=== PATIENT | female | born 1990 | race Caucasian/White ===

== ENCOUNTER 2022-11-07 10:25 | Emergency (ER) | payer OTHER, SELFPAY ==
--- NOTE | 2022-11-07 10:31 | ED.GENADUL1 ---
HPI - General Adult General Chief complaint: Nausea/Vomiting/Diarrhea Stated complaint: SORE THROAT Time Seen by Provider: 11/07/22 10:31 History of Present Illness HPI narrative: pt presents to emergency department complaining of nausea and vomiting since Saturday. The assistance of security disability. She denies any hematemesis, melena, hematochezia. She denies any abdominal pain or diarrhea. She states she had to leave work because her throat started to hurt this morning. She also has some nasal congestion. She denies any fever, chills, or cough. She denies any chest, or shortness of breath. She denies any flank pain, hematuria, dysuria. denies any sick contacts. Related Data Home Medications Medication Instructions Recorded Confirmed buspirone 10 mg tablet 10 mg PO TID 11/07/22 11/07/22 levothyroxine 50 mcg tablet 50 mcg PO DAILY 11/07/22 11/07/22 pantoprazole 40 mg tablet,delayed 40 mg PO DAILY 11/07/22 11/07/22 release Previous Rx's Medication Instructions Recorded ondansetron HCl 4 mg tablet 4 mg PO Q8H PRN nausea and 11/07/22 vomiting 4 days #7 tabs Allergies Allergy/AdvReac Type Severity Reaction Status Date / Time No Known Drug Allergies Allergy Verified 11/07/22 10:31 Review of Systems ROS Status of ROS 10 or more systems reviewed and unremarkable except as noted in history and below Exam Narrative Exam Narrative: Nurses notes and vital signs reviewed and patient is not hypoxic. General: Nontoxic, Well-appearing and in no apparent distress. Skin: Warm, dry, no pallor noted. No Rash Head: Normocephalic, atraumatic. Neck: Supple, non-tender. Eye: Pupils are equal, round and EOMI. No scleral icterus. Ears, Nose, Mouth, and Throat: TM clear, Mild posterior oropharynx erythema, no nasal mucosal hypertrophy, uvula is mid-line Oral mucosa is moist Cardiovascular: Regular Rate and Rhythm without murmur, gallop or rub. Respiratory: No accessory muscle use or respiratory distress. Lungs are clear to auscultation, no wheezing, rales or rhonchi Chest Wall: no tenderness Back: No midline thoracic or lumbar vertebral tenderness. No CVA tenderness Musculoskeletal: normal ROM, no calf or popliteal tenderness, no lower extremity edema/swelling GI: Abdomen is soft, non-distended. Normal bowel sounds. No masses appreciated. No tenderness to palpation. No rebound, guarding, or rigidity noted. Neurological: A&O x4. No cranial nerve dysfunction observed. No truncal ataxia. Moves all extremities. Sensation intact. Psychiatric: Cooperative and interactive. Normal mood and affect. Constitutional Vital Signs - 24 hr 11/07/22 10:33 Temperature 98.3 F Pulse Rate [Monitor] 96 H Respiratory Rate 20 Blood Pressure [Right Arm] 117/92 H Pulse Oximetry 99 Oxygen Delivery Method Room Air Course Vital Signs Vital signs: Vital Signs Temperature 98.3 F 11/07/22 10:33 Pulse Rate 96 H 11/07/22 10:33 Respiratory Rate 20 11/07/22 10:33 Blood Pressure 117/92 H 11/07/22 10:33 Pulse Oximetry 99 11/07/22 10:33 Oxygen Delivery Method Room Air 11/07/22 10:33 Temperature 98.3 F 11/07/22 10:33 Pulse Rate 96 H 11/07/22 10:33 Respiratory Rate 20 11/07/22 10:33 Blood Pressure 117/92 H 11/07/22 10:33 Pulse Oximetry 99 11/07/22 10:33 Oxygen Delivery Method Room Air 11/07/22 10:33 Medical Decision Making MDM Narrative Medical decision making narrative: Patient was given 4 mg of Zofran ODT. She is tolerating by mouth. Discussed with patient. Patient is nontoxic, stable for outpatient follow-up and treatment. At this time the patient is without objective evidence of an acute process requiring hospitalization or inpatient management. The patient has remained hemodynamically stable. No additional indication for emergent studies at this time. I answered all questions. Discussed discharge instructions including standard anticipatory guidance and what should prompt a return to the emergency department, including if they get worse are not getting better or develops any new or concerning symptoms. I've given them specific time frame in which to follow-up, and who to follow-up with. The patient demonstrates understanding. Patient is nontoxic and stable for discharge with outpatient follow-up. This note was created with the assistance of a speech recognition program. Although the intention is to generate documents that actually reflects the content of the visit, no guarantees can be provided that every mistake has been identified and corrected by editing. Lab Data Lab results reviewed: Yes I reviewed the patient's lab results Labs: Lab Results 11/07/22 11/07/22 Range/Units 10:50 11:02 Urine Color Lt. yellow (YELLOW) Urine Clarity Clear (CLEAR) Urine pH 6.0 (5.0-9.0) Ur Specific [place] 1.015 (1.005-1.025) Urine Protein Negative (NEG/TRACE) mg/dL Urine Glucose (UA) Negative (NEGATIVE) mg/dL Urine Ketones Negative (NEGATIVE) mg/dL Urine Occult Blood Negative (NEGATIVE) Urine Nitrite Negative (NEGATIVE) Urine Bilirubin Negative (NEGATIVE) Urine Urobilinogen 1.0 (0.2-1.0) EU/dL Ur Leukocyte Esterase Small A (NEGATIVE) Urine HCG, Qual Negative (NEGATIVE) Streptococcus Screen Negative Discharge Plan Discharge Chief Complaint: Nausea/Vomiting/Diarrhea Clinical Impression: Nausea & vomiting, Pharyngitis Patient Disposition: Home, Self-Care Time of Disposition Decision: 11:17 Condition: Good Prescriptions / Home Meds: New ondansetron HCl 4 mg tablet 4 mg PO Q8H PRN (Reason: nausea and vomiting) 4 Days Qty: 7 0RF No Action buspirone 10 mg tablet 10 mg PO TID levothyroxine 50 mcg tablet 50 mcg PO DAILY pantoprazole 40 mg tablet,delayed release (DR/EC) 40 mg PO DAILY Instructions: Pharyngitis (ED), Acute Nausea and Vomiting (ED) Stand Alone Forms: Portal Instructions Referrals: Yamile Garcia [Primary Care Provider] - 1 week
[2022-11-07 10:33] VITALS: BP 117/92; PULSE 96; RESP 20; TEMP 36.8; O2SAT 99; BMI 39.0
[2022-11-07] MEDS: ONDANSETRON 4 MG RAPDIS TABLET SL (11:06)
[2022-11-07 11:10] LABS: Bilirubin Urine NEGATIVE (NEGATIVE); Blood Urine NEGATIVE (NEGATIVE); Clarity Urine CLEAR (CLEAR); Color Urine LT. YELLOW (YELLOW); Glucose Urine UA NEGATIVE (NEGATIVE); Ketones Urine NEGATIVE (NEGATIVE); Leukocyte Esterase Urine SMALL (NEGATIVE); Nitrite Urine NEGATIVE (NEGATIVE); Protein Urine NEGATIVE (NEG/TRACE); Specific Gravity Urine 1.015 (1.005-1.025)
[2022-11-07 11:11] LABS: Urine Microscopic Indicated YES
[2022-11-07 11:22] LABS: Internal Control Within Normal Limits; Strep A Antigen Screen Negative
[2022-11-07 11:23] LABS: HCG Qualitative Urine* NEGATIVE (NEGATIVE)
[2022-11-07 11:43] LABS: RBC Urine 0-2 #/HPF (0-2)
[2022-11-07 11:44] LABS: Bacteria Urine SMALL #/HPF (NONE SEEN); Cast Seen? NONE SEEN #/LPF (NONE SEEN); Crystals Seen? None Seen #/HPF (None Seen); Mucus Urine NONE SEEN (NONE SEEN); Squamous Epithelial Cell Urine RARE #/LPF (NONE/RARE); Urine Culture Indicated YES
== END 2022-11-07 11:37 | disposition home or self-care (01) ==
PROVIDERS: Emergency Provider Emergency Medicine; Family Provider Nurse Practitioner Primary Care; PCP Nurse Practitioner
DX: R11.2 Nausea with vomiting, unspecified (principal); J02.9 Acute pharyngitis, unspecified; Z79.899 Other long term (current) drug therapy; Z79.890 Hormone replacement therapy
CPT/HCPCS: 81003; 81015; 84703; 87070; 87086; 87880; 99283

== ENCOUNTER 2022-12-29 08:47 | Outpatient (OUT) | payer OTHER, SELFPAY ==
[2022-12-29 09:24] LABS: Basophils Percent Auto 0.7 % (0.2-2.0); Eosinophils Absolute Auto 0.2 10^3/uL (0.0-0.7); Eosinophils Percent Auto 3.4 % (0.9-7.0); Hematocrit 35.5 % (36.0-48.0); Hemoglobin 10.5 g/dL (12.0-16.0); Immature Granulocytes Abs Auto 0.01 10^3/uL (0.00-0.03); Immature Granulocytes Pct Auto 0.2 % (0.0-0.5); Lymphocytes Absolute Auto 1.7 10^3/uL (1.2-3.8); Lymphocytes Percent Auto 38.7 % (20.5-60.0); Mean Corpuscular HGB Conc 29.6 g/dL (29.9-35.2); Mean Corpuscular Hemoglobin 17.7 pg (26.7-34.0); Mean Corpuscular Volume 59.8 fL (81.0-99.0); Mean Platelet Volume 10.4 fL (9.5-13.5); Monocytes Absolute Auto 0.3 10^3/uL (0.3-0.8); Monocytes Percent Auto 5.6 % (1.7-12.0); Neutrophils Absolute Auto 2.3 10^3/uL (1.4-6.5); Neutrophils Percent Auto 51.4 % (43.0-75.0); Platelet Count 325 10^3/uL (150-450); Red Blood Count 5.94 10^6/uL (4.20-5.40); White Blood Count 4.4 10^3/uL (4.0-11.0)
[2022-12-29 09:52] LABS: Estimated Average Glucose 105 mg/dL; Glycohemoglobin A1C 5.3 % (4.5-6.2)
[2022-12-29 10:30] LABS: Alanine Aminotransferase 47 U/L (14-59); Albumin Level 3.7 g/dL (3.4-5.0); Alkaline Phosphatase 62 U/L (46-116); Anion Gap 9.9; Aspartate Amino Transferase 18 U/L (15-37); BUN Creatinine Ratio 14.9; Bilirubin Total 0.5 mg/dL (0.2-1.0); Calcium 8.6 mg/dL (8.5-10.1); Carbon Dioxide 26.2 mmol/L (21.0-32.0); Chloride 104 mmol/L (98-107); Chol HDL Ratio 5.2; Cholesterol 182 mg/dL (<=200); Estimated GFR (African America >60 (>=60); Estimated GFR (Non-African Ame >60 (>=60); Globulin 3.8 g/dL; Glucose 92 mg/dL (74-106); HDL Cholesterol 35 mg/dL (40-60); Potassium 4.1 mmol/L (3.5-5.1); Sodium 136 mmol/L (136-145); Total Protein 7.5 g/dL (6.4-8.2); Triglycerides 108 mg/dL (<=150); VLDL CHOLESTEROL 21.6 mg/dL
[2022-12-30 08:08] LABS: HCV Ab Non Reactive (Non Reactive); HIV Ab/p24 Ag Screen Non Reactive (Non Reactive)
== END 2022-12-29 08:48 | disposition home or self-care (01) ==
LOC: LAB 08:47
PROVIDERS: Family Provider Nurse Practitioner Primary Care; PCP Nurse Practitioner; Visit Provider Nurse Practitioner Primary Care
DX: Z00.00 Encounter for general adult medical examination without abnormal findings (principal); Z13.6 Encounter for screening for cardiovascular disorders; Z11.59 Encounter for screening for other viral diseases; Z11.4 Encounter for screening for human immunodeficiency virus [HIV]
CPT/HCPCS: 36415; 80053; 80061; 83036; 85025; 86803; 87389

== ENCOUNTER 2023-01-03 20:41 | Outpatient (REF) | payer OTHER, SELFPAY ==
[2023-01-09 15:10] LABS: Age Gdln ACOG Testing Note (.); HPV Aptima Negative (Negative); IGP, Aptima HPV, rfx 16/18,45 Note (.)
== END 2023-01-03 20:42 | disposition home or self-care (01) ==
LOC: LAB 20:41
PROVIDERS: Family Provider Nurse Practitioner Primary Care; PCP Nurse Practitioner; Visit Provider Physician Assistant
DX: Z01.419 Encounter for gynecological examination (general) (routine) without abnormal findings (principal)
CPT/HCPCS: 87624; G0145

== ENCOUNTER 2023-01-15 12:51 | Outpatient (OUT) | payer OTHER, SELFPAY ==
[2023-01-15 15:01] LABS: Reticulocyte Count 0.11 % (0.60-3.10)
[2023-01-15 15:22] LABS: Percent Iron Saturation 16.5 %
[2023-01-15 15:23] LABS: Lactate Dehydrogenase 186 U/L (81-234)
[2023-01-16 15:10] LABS: Hgb A 94.7 % (96.4-98.8); Hgb A2 5.3 % (1.8-3.2)
== END 2023-01-15 12:52 | disposition home or self-care (01) ==
LOC: HEMC 12:58
PROVIDERS: Family Provider Nurse Practitioner Primary Care; PCP Nurse Practitioner; Visit Provider Internal Medicine Hematology & Oncology
DX: D64.9 Anemia, unspecified (principal)
CPT/HCPCS: 36415; 82728; 83540; 83550; 83615; 85045; 85660

== ENCOUNTER 2023-02-21 09:03 | Outpatient (OUT) | payer OTHER, SELFPAY ==
--- NOTE | 2023-02-21 09:07 | US_ITS ---
The [address] [address] Patient Name: ENRIQUE JOHNSTON MRN: [id number] date: 1990 Sex: F Assigned Patient Location: US Current Patient Location: US Accession/Order Number: [id number] Exam Date: 02/21/2023 09:08 Report Date: 02/21/2023 10:07 At the request of: DIANE BRYAN Procedure: US abdomen limited EXAM: US abdomen limited HISTORY: Left Quadrant Discomfort COMPARISON: None. TECHNIQUE: Targeted ultrasound of the spleen FINDINGS: The spleen measures 13.9 x 5.5 x 14.3 cm with a calculated volume of 578 cc. There is no fluid or free mass. US/US abdomen limited IMPRESSION: Splenomegaly. Electronically authenticated by: ALBERTO WALTON Date: 02/21/2023 10:07
== END 2023-02-21 09:04 | disposition home or self-care (01) ==
LOC: US 09:03
PROVIDERS: Family Provider Nurse Practitioner Primary Care; Visit Provider Internal Medicine Hematology & Oncology
DX: D64.9 Anemia, unspecified (principal); R16.1 Splenomegaly, not elsewhere classified
CPT/HCPCS: 76705

== ENCOUNTER 2023-03-19 08:49 | Outpatient (OUT) | payer OTHER, SELFPAY | END 2023-03-19 08:50 | disposition home or self-care (01) | LOC: PST 08:49 | PROVIDERS: Family Provider Nurse Practitioner Primary Care; Visit Provider Obstetrics & Gynecology | DX: Z01.818 Encounter for other preprocedural examination (principal); Z30.2 Encounter for sterilization; R10.2 Pelvic and perineal pain ==

== ENCOUNTER 2023-03-22 08:09 | Day surgery (SDC) | payer OTHER, SELFPAY ==
[2023-03-19 09:20] VITALS: BP 114/73; PULSE 82; RESP 18; TEMP 36.3; O2SAT 98; BMI 39.5
[2023-03-22] VITALS (16 sets, daily range): BP systolic 108–141; BP diastolic 63–84; PULSE 72–102; RESP 7–21; TEMP 36.4–36.6; O2SAT 92–100; BMI 39.5
[2023-03-22 08:24] LABS: Hematocrit 34.2 % (36.0-48.0); Hemoglobin 10.1 g/dL (12.0-16.0); Mean Corpuscular HGB Conc 29.5 g/dL (29.9-35.2); Mean Corpuscular Hemoglobin 17.9 pg (26.7-34.0); Mean Corpuscular Volume 60.5 fL (81.0-99.0); Mean Platelet Volume 9.3 fL (9.5-13.5); Platelet Count 309 10^3/uL (150-450); Red Blood Count 5.65 10^6/uL (4.20-5.40); White Blood Count 5.4 10^3/uL (4.0-11.0)
[2023-03-22 08:28] LABS: Red Cell Distribution Width 15.1 % (11.0-15.0)
[2023-03-22] MEDS: LACTATED RINGER'S SOLUTION 1,000 ML 50 ML IV ×2 (08:41→10:42)
[2023-03-22 08:43] LABS: HCG Quantitative <1 mIU/mL
[2023-03-22 08:45] LABS: Lymphocytes Absolute Manual 1.67 10^3/uL (1.20-3.80)
[2023-03-22 08:46] LABS: Anisocytosis 1+; Eosinophils Absolute Manual 0.21 10^3/uL (0.00-0.70); Hypochromasia 2+; Microcytosis 2+
--- NOTE | 2023-03-22 11:22 | P.ON_ITS ---
Brief Operative Note Date of procedure: 03/22/23 Pre-op diagnosis: pelvic pain, post tubal ligation syndrome Post-op diagnosis: other (lt ovarian cyst) Procedure: NAME OF PROCEDURE: robotic assisted bilateral laparoscopic salpingectomy, with lt ovarian cystectomy, removal of fischie clips PROCEDURE: The patient was taken back to the Operating Room where she was given general anesthesia without difficulty. She was then prepped and draped in the normal sterile fashion after being placed in a dorsal lithotomy position. A wet sponge stick was placed into the patient's vagina. Attention was then turned to the patient's abdomen, where a scalpel was used to make a small infraumbilical incision. The S retractors were then used to dissect the underlying layers until the fascia could be seen. The fascia was then grasped with Bree clamps and tented up. A knife was then used to make a small incision to the fascia. The muscle was identified, at that time two sutures of #0 Vicryl on a GI needle was then used and placed through the fascia. the peritoneum was then identified and entered bluntly. The 10-4 Liza was then placed into the patient's abdomen. This was confirmed with direct visualization of the bowel, using the lapa roscope. The patient's abdomen was then insufflated using approximately 4 liters of CO2 gas. Survey of the patient's abdomen demonstrated ovaries were normal in appearance as well as both tubes and uterus. A second and third rt and lt lateral robotic ports which were 8 mm in size, was then placed after the skin incision was made under direct visualization . robotic arms were engaged. The patient's tube on the patient's right side was identified and tented up using a grasper, the ligasure apparatus was then used to come across the mesosalpingx from the fimbriated end to the insertion site at the uterus, the tube was then amputated and removed in its entirety. This was done on the contralateral side. The tubes were the removed from the patients abdomen. a 5cm ovarian cyst was identified, left ovarian cystectomy was performed using vessel sealer. Excellent hemostasis was noted. The lateral ports were then moved under direct visualization with excellent hemostasis. All instruments were removed from the patient's abdomen. The fascia was closed using the #0 Vicryl on GI needle. The skin was closed using 4-0 Vicryl subcuticularly. All instruments were removed from the patient's vagina as well. The patient was taken out of the dorsal lithotomy position and placed in the supine position and taken to recovery in stable condition. Sponge, lap and needle counts were correct x2. please note filschie clips were identified near bladder, they were easily removed using a grasper Anesthesia: DANIEL Surgeon: Stevie Gamble Baggage Screener: Yaz Bassett Estimated blood loss (mL): 5 Pathology: other (lt ovarian cyst wall, and bilateral tubes, filschie clips) Condition: stable Disposition: PACU
[2023-03-22] MEDS: HYDROMORPHONE HCL 0.5 MG/0.5 ML SYRINGE IV (12:03)
[2023-03-22] MEDS: PROMETHAZINE HCL 25 MG TABLET PO (12:08)
[2023-03-22] MEDS: HYDROCODONE/ACET 5-325 MG TABLET 1 TAB PO (12:14)
== END 2023-03-22 13:03 | disposition home or self-care (01) ==
PROVIDERS: Family Provider Nurse Practitioner Primary Care; Visit Provider Obstetrics & Gynecology
PROC: (CPT 58661; principal; 2023-03-22 09:55)
DX: Z30.2 Encounter for sterilization (principal); R10.2 Pelvic and perineal pain; D27.1 Benign neoplasm of left ovary; Z98.51 Tubal ligation status
CPT/HCPCS: 58661; 58662; 36415; 84702; 85027; 88302; 88305; 99999; J1170; J2704

== ENCOUNTER 2023-04-15 15:55 | Outpatient (OUT) | payer OTHER, SELFPAY ==
[2023-04-15 16:36] LABS: Basophils Percent Auto 0.2 % (0.2-2.0); Eosinophils Absolute Auto 0.1 10^3/uL (0.0-0.7); Hemoglobin 9.8 g/dL (12.0-16.0); Lymphocytes Absolute Auto 2.4 10^3/uL (1.2-3.8); Lymphocytes Percent Auto 40.3 % (20.5-60.0); Mean Corpuscular HGB Conc 30.6 g/dL (29.9-35.2); Mean Corpuscular Hemoglobin 18.2 pg (26.7-34.0); Mean Platelet Volume 10.4 fL (9.5-13.5); Monocytes Absolute Auto 0.2 10^3/uL (0.3-0.8); Monocytes Percent Auto 4.1 % (1.7-12.0); Neutrophils Absolute Auto 3.1 10^3/uL (1.4-6.5); Neutrophils Percent Auto 53.4 % (43.0-75.0); Platelet Count 344 10^3/uL (150-450); Red Blood Count 5.39 10^6/uL (4.20-5.40); Red Cell Distribution Width 15.8 % (11.0-15.0); White Blood Count 5.9 10^3/uL (4.0-11.0)
[2023-04-15 16:55] LABS: Anion Gap 15.5; BUN Creatinine Ratio 18.3; Calcium 8.6 mg/dL (8.5-10.1); Carbon Dioxide 25.1 mmol/L (21.0-32.0); Chloride 102 mmol/L (98-107); Estimated GFR (African America >60 (>=60); Estimated GFR (Non-African Ame >60 (>=60); Glucose 88 mg/dL (74-106); Potassium 3.6 mmol/L (3.5-5.1); Sodium 139 mmol/L (136-145)
[2023-04-15 17:02] LABS: Mean Corpuscular Volume 59.4 fL (81.0-99.0)
[2023-04-15 17:18] LABS: Percent Iron Saturation 14.2 %
[2023-04-16 13:09] LABS: Hgb A 94.8 % (96.4-98.8); Hgb A2 5.2 % (1.8-3.2)
[2023-07-15 14:26] LABS: Reticulocyte Count 2.04 % (0.60-3.10)
== END 2023-04-15 15:56 | disposition home or self-care (01) ==
LOC: LAB 15:56
PROVIDERS: Family Provider Nurse Practitioner Primary Care; Visit Provider Internal Medicine Hematology & Oncology
DX: D64.9 Anemia, unspecified (principal)
CPT/HCPCS: 36415; 80048; 82607; 82728; 82746; 83540; 83550; 85025; 85045

== ENCOUNTER 2023-06-11 16:16 | Outpatient (OUT) | payer OTHER, SELFPAY ==
--- OUTSIDE RECORDS SUMMARY | 2023-06-11 16:23 | XMS_ITS | CCD ---
Author Name Unknown Address [address] [place] [address] Organization [facility] Care Team Providers Care Payable Representative Name Role Phone Unavailable Primary Care Provider Juan Carlos Panchal Unavailable CEDRICYAMILE BRANDON Primary Care Physician FANTA, DR SADI Oliveira Consulting Unavailable AICHHOLZ, GUARD ENTRANCE REGISTRAR YAMILE Primary Care Unavailable WEST, DR SADI Oliveira Attending Unavailable WEST, DR SADI Oliveira Admitting Unavailable WEST, DR SADI Oliveira Consulting Unavailable AICHHOLZ, GUARD ENTRANCE REGISTRAR YAMILE Primary Care Unavailable WEST, DR SADI Oliveira Attending Unavailable WEST, DR SADI Oliveira Admitting Unavailable ZIEBER, DR CAMILO Crowley Consulting Unavailable WEST, DR SADI Oliveira Consulting Unavailable AICHHOLZ, GUARD ENTRANCE REGISTRAR YAMILE Primary Care Unavailable WEST, DR SADI Oliveira Attending Unavailable WEST, DR SADI Oliveira Admitting Unavailable ZIEBER, DR CAMILO Crowley Consulting Unavailable WEST, DR SADI Oliveira Consulting Unavailable AICHHOLZ, GUARD ENTRANCE REGISTRAR YAMILE Primary Care Unavailable WEST, DR SADI Oliveira Attending Unavailable WEST, DR SADI Oliveira Admitting Unavailable WEST, DR SADI Oliveira Consulting Unavailable AICHHOLZ, GUARD ENTRANCE REGISTRAR YAMILE Primary Care Unavailable WEST, DR SADI Oliveira Attending Unavailable WEST, DR SADI Oliveira Admitting Unavailable ZIEBER, DR CAMILO Crowley Consulting Unavailable WEST, DR SADI Oliveira Consulting Unavailable AICHHOLZ, GUARD ENTRANCE REGISTRAR YAMILE Primary Care Unavailable WEST, DR SADI Oliveira Attending Unavailable WEST, DR SADI Oliveira Admitting Unavailable ZIEBER, DR CAMILO Crowley Consulting Unavailable WEST, DR SADI Oliveira Admitting Unavailable WEST, DR SADI Oliveira Attending Unavailable AICHHOLZ, GUARD ENTRANCE REGISTRAR YAMILE Primary Care Unavailable WEST, DR SADI Oliveira Consulting Unavailable AICHHOLZ, GUARD ENTRANCE REGISTRAR YAMILE Consulting Unavailable AICHHOLZ, GUARD ENTRANCE REGISTRAR YAMILE Primary Care Unavailable AICHHOLZ, GUARD ENTRANCE REGISTRAR YAMILE Attending Unavailable AICHHOLZ, GUARD ENTRANCE REGISTRAR YAMILE Admitting Unavailable AICHHOLZ, GUARD ENTRANCE REGISTRAR YAMILE Admitting Unavailable AICHHOLZ, GUARD ENTRANCE REGISTRAR YAMILE Attending Unavailable AICHHOLZ, GUARD ENTRANCE REGISTRAR YAMILE Primary Care Unavailable AICHHOLZ, GUARD ENTRANCE REGISTRAR YAMILE Consulting Unavailable ADONAY, DR CAMILO Crowley Consulting Unavailable AICHHOLZ, GUARD ENTRANCE REGISTRAR YAMILE Consulting Unavailable AICHHOLZ, GUARD ENTRANCE REGISTRAR YAMILE Primary Care Unavailable AICHHOLZ, GUARD ENTRANCE REGISTRAR YAMILE Attending Unavailable AICHHOLZ, GUARD ENTRANCE REGISTRAR YAMILE Admitting Unavailable ADONAY, DR CAMILO Crowley Consulting Unavailable FRANDY ., DR MATOS Attending Unavailable FRANDY ., DR MATOS Admitting Unavailable AICHHOLZ, GUARD ENTRANCE REGISTRAR YAMILE Primary Care Unavailable FRANDY ., DR MATOS Consulting Unavailable CONNIE COTA Consulting Unavailable RONALDO, MARIAN Consulting Unavailable STAR ., MADDIE Attending Unavailable STAR ., MADDIE Admitting Unavailable AICHHOLZ, GUARD ENTRANCE REGISTRAR YAMILE Primary Care Unavailable CAMILO RICKETTS Consulting Unavailable STAR ., MADDIE Consulting Unavailable RONALDO, MARIAN Consulting Unavailable RONALDO, MARIAN Attending Unavailable RONALDO, MARIAN Admitting Unavailable AICHHOLZ, GUARD ENTRANCE REGISTRAR YAMILE Primary Care Unavailable PAKO JERRY Consulting Unavailable ANA VAZ Consulting Unavailable RONALDO, MARIAN Attending Unavailable RONALDO, MARIAN Admitting Unavailable AICHHOLZ, GUARD ENTRANCE REGISTRAR YAMILE Primary Care Unavailable LEROY PRETTY Consulting Unavailable Ludy Garcia Consulting Unavailable FANTA, DR SADI Oliveira Consulting Unavailable AICHOLZ, GUARD ENTRANCE REGISTRAR YAMILE Primary Care Unavailable FANTA, DR SADI Oliveira Attending Unavailable FANTA, DR SADI Oliveira Admitting Unavailable ADONAY, DR CAMILO Crowley Consulting Unavailable Medications Current Medications Medication Drug Class(es) Dates Sig (Normalized) Sig (Original) escitalopram 20 mg oral tablet (1 source) Serotonin Reuptake Inhibitor take 1 tablet by mouth every twenty-four hours Lexapro 20 MG 1 tablet Orally Once a day Active ferrous sulfate 325 mg oral tablet (1 source) Start: 03-23-2014 ferrous sulfate 325 mg Tab Refills(s) 0 Start Date: 03/23/14 Status: Ordered meclizine hydrochloride 25 mg oral tablet (1 source) Antiemetic Start: 12-10-2021 take 1 tablet by mouth three times daily meclizine 25 mg Tab 25 mg = 1 tab(s), Oral, TID, # 20 tab(s), Refills(s) 0 Start Date: 12/10/21 Status: Ordered pantoprazole 40 mg delayed release oral tablet (1 source) Proton Pump Inhibitor take 1 tablet by mouth every twenty-four hours Pantoprazole Sodium 40 MG 1 tablet Orally Once a day Active Zofran ODT 4 mg Tab-Dis (1 source) Start: 12-10-2021 take 1 tablet by mouth every six hours as needed for nausea Zofran ODT 4 mg Tab-Dis 4 mg = 1 tab(s), Oral, q6hr, PRN Nausea/Vomiting, # 12 tab(s), Refills(s) 0 Start Date: 12/10/21 Status: Ordered Problems Active Problems Problem Classification Problem Date Documented Da te Episodic/Chronic Deficiency and other anemia (1 source) Anemia, unspecified; Translations: [ANEMIA UNSPECIFIED] Onset: 3 Episodic Esophageal disorders (1 source) Gastroesophageal reflux disease; Translations: [Gastro-esophageal reflux disease without esophagitis] Chronic Headache; including migraine (1 source) Headache; including migraine; Translations: [HEADACHE UNSPECIFIED] Onset: 2 Menopausal disorders (1 source) Hormone replacement therapy; Translations: [HORMONE REPLACEMENT THERAPY] Onset: 3 Episodic Other aftercare (1 source) Other ad terminal makeup operator (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) drug therapy; Translations: [OTH KEY ACCOUNT COORDINATOR CURRENT DRUG THERAPY] Onset: 3 Episodic Other connective tissue disease (1 source) Pain in lower limb; Translations: [Pain in leg, unspecified] Onset: 2 Episodic Other upper respiratory infections (5 sources) Acute upper respiratory infection, unspecified; Translations: [Acute pharyngitis, unspecified] Onset: 2 Episodic Phlebitis; thrombophlebitis and thromboembolism (8 sources) Phlebitis and thrombophlebitis of superficial vessels of right lower extremity; Translations: [Phlebitis and thrombophlebitis of superficial vessels of left lower extremity] Onset: 2 Episodic Thyroid disorders (4 sources) Hypothyroidism, unspecified; Translations: [HYPOTHYROIDISM UNSPECIFIED] Onset: 3 Chronic Unclassified (3 sources) COUGH, UNSPECIFIED; Translations: [COUGH, UNSPECIFIED] Onset: 3 Unclassified (1 source) CONTACT W/AND (SUSP) EXPOS COVID-19; Translations: [CONTACT W/AND (SUSP) EXPOS COVID-19] Onset: 3 Varicose veins of lower extremity (4 sources) Varicose veins of bilateral lower extremities with pain; Translations: [VARICOSE VNS GERBER LOW EXTREM W/PAIN] Onset: 3 Episodic Past or Other Problems Problem Classification Problem Date Documented Da te Episodic/Chronic Abdominal pain (4 sources) Unspecified abdominal pain; Translations: [UNSPECIFIED ABDOMINAL PAIN] Onset: 04-19-2022 Episodic Cardiac dysrhythmias (4 sources) Palpitations; Translations: [PALPITATIONS] Onset: 11-23-2021 Episodic Conditions associated with dizziness or vertigo (5 sources) Dizziness and giddiness; Translations: [Dizziness and giddiness] Onset: 12-10-2021 Episodic Malaise and fatigue (1 source) Weakness; Translations: [WEAKNESS] Onset: 12-22-2021 Episodic Nausea and vomiting (1 source) Nausea with vomiting, unspecified; Translations: [NAUSEA WITH VOMITING UNSPECIFIED] Onset: 05-18-2022 Episodic Other nervous system disorders (1 source) Anesthesia of skin; Translations: [ANESTHESIA OF SKIN] Onset: 12-22-2021 Episodic Residual codes; unclassified (1 source) Pain, unspecified; Translations: [PAIN UNSPECIFIED] Onset: 05-18-2022 Episodic Unclassified (4 sources) Onset: 03-04-2008 Resolved: 03-23-2014 12-02-2014 Unclassified (1 source) COUGH, UNSPECIFIED; Translations: [COUGH, UNSPECIFIED] Onset: 08-27-2022 Results Test Name Value Interpretation Reference Range Facility CBC AUTO DIFFon 09-20-2022 BASO # 0.0 103/ul Normal 0.0-0.1 [facility] Comment on above: Performed By: #### C BC ####[facility] [address] [place] [id number]. Zuly Aparicio Basophils/100 WBC (Bld) 0.5 % Normal 0.2-2.0 [facility] Comment on above: Performed By: #### C BC ####[facility] [address] [place] [id number] Aparicio EO # 0.1 103/ul Normal 0.0-0.7 [facility] Comment on above: Performed By: #### C BC ####[facility] [address] [place] [id number]. Zuly Aparicio Eosinophils/100 WBC (Bld) 1.5 % Normal 0.9-7.0 [facility] Comment on above: Performed By: #### C BC ####[facility] [address] [place] [address]Dr. Zuly Aparicio Erythrocyte distribution width (RBC) [Ratio] 15.8 % Critically high 11.0-15.0 [facility] Comment on above: Performed By: #### C BC ####[facility] [address] [place], [place] [address]Dr. Zuly Aparicio Hematocrit (Bld) [Volume fraction] 34.1 % Critically low 36.0-48.0 [facility] Comment on above: Performed By: #### C BC ####[facility] [address] [place], [place] [address]Dr. Zuly Aparicio Hemoglobin (Bld) [Mass/Vol] 10.1 g/dL Critically low 12.0-16.0 [facility] Comment on above: Performed By: #### C BC ####[facility] [address] [place], [place] [address]Dr. Zuly Aparicio IG # 0.01 10e3/ul Normal 0.00-0.03 [facility] Comment on above: Performed By: #### C BC ####[facility] [address] [place], [place] [address]Dr. Zuly Aparicio IG % 0.2 % Normal 0.0-0.5 [facility] Comment on above: Performed By: #### C BC ####[facility] [address] [place], [place] [address]Dr. Zuly Aparicio LYMPH # 1.6 103/ul Normal 1.2-3.8 [facility] Comment on above: Performed By: #### C BC ####[facility] [address] [place], [place] [address]Dr. Zuly Aparicio Lymphocytes/100 WBC (Bld) 39.2 % Normal 20.5-60.0 [facility] Comment on above: Performed By: #### C BC ####[facility] [address] [place] [id number]. Zuly Aparicio MANUAL DIFF REQ NO Normal [facility] Comment on above: Performed By: #### C BC ####[facility] [address] [place] [id number]. Zuly Aparicio MCH (RBC) [Entitic mass] 17.7 pg Critically low 26.7-34.0 [facility] Comment on above: Performed By: #### C BC ####[facility] [address] [place], [place] [address]Dr. Zuly Aparicio MCHC (RBC) [Mass/Vol] 29.6 g/dL Critically low 29.9-35.2 [facility] Comment on above: Performed By: #### C BC ####[facility] [address] [place], [place] [address]Dr. Zuly Markus MCV (RBC) [Entitic vol] 59.7 fL Critically low 81.0-99.0 [facility] Comment on above: Performed By: #### C BC ####[facility] [address] [place], [place] [address]Dr. Zuly Aparicio MONO # 0.3 103/ul Normal 0.3-0.8 [facility] Comment on above: Performed By: #### C BC ####[facility] [address] [place] [address]Dr. Zuly Aparicio Monocytes/100 WBC (Bld) 6.5 % Normal 1.7-12.0 [facility] Comment on above: Performed By: #### C BC ####[facility] [address] [place], [place] [address]Dr. Lolacuauhtemoc Aparicio NEUT # 2.1 103/ul Normal 1.4-6.5 [facility] Comment on above: Performed By: #### C BC ####[facility] [address] [place], [place] [address]Dr. Zuly Aparicio Neutrophils/100 WBC (Bld) 52.1 % Normal 43.0-75.0 [facility] Comment on above: Performed By: #### C BC ####[facility] [address] [place], [place] [address]Ud. Zuly Aparicio Platelet mean volume (Bld) [Entitic vol] 10.0 fL Normal 9.5-13.5 [facility] Comment on above: Performed By: #### C BC ####[facility] [address] [place], [place] [address]Cr. Zuly Aparicio PLT 333 103/ul Normal 150-450 [facility] Comment on above: Performed By: #### C BC ####[facility] [address] [place], [place] [address]Pg. Zuly Aparicio RBC 5.71 106/ul Critically high 4.20-5.40 [facility] Comment on above: Performed By: #### C BC ####[facility] [address] [place] [id number]. Zuly Aparicio WBC 4.0 103/ul Normal 4.0-11.0 [facility] Comment on above: Performed By: #### C BC ####[facility] [address] [place] [id number]. Zuly Aparicio FREE T4on 09-20-2022 Free T4 [Mass/Vol] 1.11 ng/dL Normal 0.76-1.46 [facility] Comment on above: Performed By: #### JEFERSON ASHER #### [facility] [address] [address] [address] Zuly Aparicio IRONon 09-20-2022 Iron [Mass/Vol] 89.0 ug/dL Normal 50.0-170.0 [facility] Comment on above: Performed By: #### JEFERSON ASHER #### [facility] [address] [address] [address] Zuly Aparicio PROF 14(COMP METB)on 023 Albumin [Mass/Vol] 3.7 g/dL Normal 3.4-5.0 [facility] Comment on above: Performed By: #### JEFERSON ASHER #### [facility] [address] [address] [address] Zuly Aparicio Albumin/Globulin [Mass ratio] 1.0 {ratio} Normal [facility] Comment on above: Performed By: #### JEFERSON ASHER #### [facility] [address] [place] [address] Dr. Zuly Aparicio ALP [Catalytic activity/Vol] 63 U/L Normal 46-116 [facility] Comment on above: Performed By: #### JEFERSON ASHER #### [facility] [address] [place] [address] Dr. Zuly Aparicio ALT [Catalytic activity/Vol] 50 U/L Normal 14-59 [facility] Comment on above: Performed By: #### JEFERSON ASHER #### [facility] [address] [place] [address] Dr. Zuly Aparicio Anion gap [Moles/Vol] 10.4 mmol/L Normal [facility] Comment on above: Performed By: #### JEFERSON ASHER #### [facility] [address] [place] [address] Dr. Zuly Aparicio AST [Catalytic activity/Vol] 24 U/L Normal 15-37 [facility] Comment on above: Performed By: #### JEFERSON ASHER #### [facility] [address] [place] [address] Dr. Zuly Aparicio Bilirubin [Mass/Vol] 0.5 mg/dL Normal 0.2-1.0 [facility] Comment on above: Performed By: #### JEFERSON ASHER #### [facility] [address] [place] [address] Dr. Zuly Aparicio Calcium [Mass/Vol] 8.8 mg/dL Normal 8.5-10.1 [facility] Comment on above: Performed By: #### JEFERSON ASHER #### [facility] [address] [place] [address] Dr. Zuly Aparicio Chloride [Moles/Vol] 108 mmol/L Critically high 98-107 [facility] Comment on above: Performed By: #### JEFERSON ASHER #### [facility] [address] [address] [address] Zuly Aparicio CO2 [Moles/Vol] 27.5 mmol/L Normal 21.0-32.0 [facility] Comment on above: Performed By: #### Roshan HOOPER, UMICRO #### [facility] [address] [address] [address] Zuly Aparicio Creatinine [Mass/Vol] 0.94 mg/dL Normal 0.55-1.02 [facility] Comment on above: Performed By: #### Roshan HOOPER, UMICRO #### [facility] [address] [address] [address] Zuly Aparicio EGFR-AF BANGLADESHI >60 Normal >=60 [facility] Comment on above: Performed By: #### Roshan HOOPER, UMICRO #### [facility] [address] [place] [address] Dr. Zuly Aparicio EGFR-NON AF BANGLADESHI >60 Normal >=60 [facility] Comment on above: Performed By: #### Roshan HOOPER, UMICRO #### [facility] [address] [address] [address] Zuly Aparicio Globulin (S) [Mass/Vol] 3.7 g/dL Normal [facility] Comment on above: Performed By: #### Roshan HOOPER, UMICRO #### [facility] [address] [place] [address] Dr. Zuly Aparicio Glucose [Mass/Vol] 83 mg/dL Normal 74-106 [facility] Comment on above: Performed By: #### Roshan HOOPER, UMICRO #### [facility] [address] [place] [address] Dr. Zuly Aparicio Potassium [Moles/Vol] 3.9 mmol/L Normal 3.5-5.1 [facility] Comment on above: Performed By: #### Roshan HOOPER, UMICRO #### [facility] [address] [address] [address] Zuly Aparicio Protein [Mass/Vol] 7.4 g/dL Normal 6.4-8.2 [facility] Comment on above: Performed By: #### E RUFUS UMICRO #### [facility] [address] [address] [address] Zuly Aparicio Sodium [Moles/Vol] 142 mmol/L Normal 136-145 [facility] Comment on above: Performed By: #### E RUFUS UMICRO #### [facility] [address] [place] [address] Dr. Zuly Aparicio Urea nitrogen [Mass/Vol] 14.0 mg/dL Normal 7.0-18.0 [facility] Comment on above: Performed By: #### Roshan HOOPER UMICRO #### [facility] [address] [place] [address] Dr. Zuly Aparicio Urea nitrogen/Creatinine [Mass ratio] 14.9 mg/mg Normal [facility] Comment on above: Performed By: #### Roshan HOOPER UMICRO #### [facility] [address] [place] [address] Dr. Zuly Aparicio TSHon 09-20-2022 TSH 1.491 uIU/mL Normal 0.358-3.740 [facility] Comment on above: Performed By: #### Roshan HOOPER UMICRO #### [facility] [address] [place] [address] Dr. Zuly Aparicio VC INJ SCL [place] ONLINE RETAILER VEINSon 0 09-04-2022 VC INJ SCL [place] ONLINE RETAILER VEINS Patient: TORIE JOHNSTON Exam Date: 09/04/2022 : 1990 Gender:F Ordering : DR SADI JEWELL M.D. Admission #: [id number] Family : Order #: [id number] CLICK HERE TO VIEW EXAM RADIOLOGY REPORT PROCEDURE: VEIN CENTER INJECTION SCLEROSING SOLUTION MULTIPLE VEINS SAME COMPARISON: None. INDICATIONS: Pain co-occurrent and due to varicose veins of bilateral legs i83.813 PROCEDURE NOTE: The risks and benefits of the procedure were explained at length to the patient and informed written consent was obtained. Ketan Haley R.N. was present and assisted. The procedure was performed under sterile technique. The patient's leg was wrapped with Coban and postprocedural verbal and written instructions provided. SCLEROSANT: 2 cc, 0.5% polidocanol VEIN(S) INJECTED: 17 veins in the right leg VISUALIZATION: Ultrasound was not used to visualize the sclerosant ANESTHESIA Supercooled air COMPLICATIONS: None CONCLUSION: 1. Technically successful sclerotherapy as described Dictated by: Camilo Wood M.D. on 09/04/2022 at 11:51 Approved by: Camilo Wood M.D. on 09/04/2022 at 12:00 Normal [facility] Covid-19 PCR (CVDTB)on SARS-CoV-2 (COVID-19) RNA BORIS+probe Ql (Unsp spec) Not detected Normal NOT DETECTED [facility] Comment on above: Result Comment: This test is not yet approved or cleared by the [place] FDA. When there are no FDA-approved or cleared tests available, and other criteria are met, FDA can make tests available under an emergency access mechanism called an Emergency Use Authorization (EUA). The EUA for this test is supported by the [place] [employer] of Health and Human Service's (HHS's) declaration that circumstances exist to justify the emergency use of in vitro diagnostics for the detection and/or diagnosis of the virus that causes COVID-19. This EUA will remain in effect (meaning this test can be used) for the duration of the COVID-19 declaration justifying emergency of IVDs, unless it is terminated or revoked by FDA (after which the test may no longer be used). When diagnostic testing is negative, the possibility of a false negative should be considered in the context of a patient's recent exposures and the presence of clinical signs and symptoms consistent with SARS-CoV-2. Performed By: #### T SH #### [facility] [address] [place] [address] Dr. Zuly Aparicio INFLUENZA A AND B AGon 08-27 INFLUANEGH SEE BELOW Normal [facility] Comment on above: Result Comment: Nega tive for Flu A protein angiten. Infection due to Flu A cannot be ruled out. Flu A angiten in the sample may be below the detection limit of the test. Performed By: #### T SH #### [facility] [address] [place] [address] Dr. Zuly Aparicio [facility] SEE BELOW Normal [facility] Comment on above: Result Comment: Nega tive for Flu B protein antigen. Infection due to Flu B cannot be ruled out. Flu B antigen in the sample may be below the detection limit of the test. Performed By: #### T SH #### [facility] [address] [place] [address] Dr. Zuly Aparicio INFLUENZA A AG Negative Normal NEGATIVE SEE COMMENT [facility] Comment on above: Performed By: #### T SH #### [facility] [address] [place] [address] Dr. Zuly Aparicio INFLUENZA B AG Negative Normal NEGATIVE SEE COMMENT [facility] Comment on above: Performed By: #### T SH #### [facility] [address] [place] [address] Dr. Zuly Aparicio SYMPTOMATIC COVID-19 ANTIGEN on 08-27-2022 EUA Statement SEE BELOW Normal [facility] Comment on above: Result Comment: This test has not been FDA cleared or approved, but has been authorized by the FDA under an Emergency Use Authorization (EUA) for use by authorized laboratories certified under CLIA that meet the requirements to perform moderate or high complexity testing. This test has been authorized only for the detection of proteins from SARS-CoV-2, not for any other viruses or pathogens. The emergency use of this test is authorized for the duration of the declaration that circumstances exist justifying the authorization of emergency use of in vitro diagnostic tests for detection and/or diagnosis of Covid-19 under section 564(b)(1) of the Act, 21 U.S.C. 360bbb-3(b)(1), unless the declaration is terminated or authorization is revoked sooner. Performed By: #### C VDAGS #### [facility] [address] [place] [address] Dr. Zuly Aparicio SARS-CoV-2 (COVID-19) RNA BORIS+probe Ql (Unsp spec) Negative Normal NEGATIVE [facility] Comment on above: Performed By: #### C VDAGS #### [facility] [address] [place] [address] Dr. Zuly Aparicio XR CHEST 1 Von 08-27-2022 XR CHEST 1 V EXAMINATION: XR CHES T 1 V HISTORY: COUGH , shortness of breath COMPARISON: XR chest 05/16/2022 FINDINGS: LUNGS: No significant pulmonary parenchymal abnormalities. VASCULATURE: No increased pulmonary vasculature. PLEURA: No pneumothorax, effusion, or pleural thickening. CARDIAC: No cardiomegaly or cardiac silhouette abnormality. MEDIASTINUM: No visible mass or adenopathy. BONES: No fracture or visible bone lesion. OTHER: Negative. IMPRESSION: 1. No acute cardiopulmonary process. Stable chest. Electronically authenticated by: CAMILO WOOD Date: 2022-08-27 17:17 Normal [facility] VC CONSULT FOLLOWUPon 2022 VC CONSULT FOLLOWUP Patient: TORIE JOHNSTON Exam Date: 08/21/2022 : 1990 Gender:F Ordering : DR SADI JEWELL M.D. Admission #: [id number] Family : Order #: [id number] CLICK HERE TO VIEW EXAM RADIOLOGY REPORT PROCEDURE: VEIN CENTER CONSULTATION FOLLOWUP VEIN CENTER - OFFICE VISIT FOLLOW UP COMPARISON: VC CONSULT FOLLOWUP, 11/16/2021. VC CONSULT FOLLOWUP, 10/19/2021. PROGRESS NOTES: The patient reports no significant pain following micro foam chemical ablation of left leg. The patient did wear her compression stocking. The patient did not require oral analgesics. The patient has followed our recommendations to walk 20-30 minutes once or twice per day since the procedure. Physical exam demonstrates no significant erythema or bruising. Thrombosed varicose veins can be palpated. The patient does have bilateral reticular and spider veins remaining. Review of the ultrasound performed the same day demonstrates occlusive thrombus extending throughout the treated left leg veins with no deep vein thrombus. No significant residual incompetent varicose veins are observed by ultrasound or on physical exam. The patient expressed a desire to proceed with treatment of reticular and spider veins with injection sclerotherapy. IMPRESSION: 1. Successful ablation of incompetent left leg varicose veins 2. Persistent bilateral reticular and spider veins PLAN: Injection sclerotherapy Nurse notes, history and physical were reviewed and confirmed, see attached forms. The nurse was present throughout the physical exam and consultation Dictated by: Sadi Jewell MD on 08/21/2022 at 10:02 Approved by: Sadi Jewell MD on 08/21/2022 at 11:18 Normal [facility] VC EXT VENOUS RT LIMITEDon 0 08-21-2022 VC EXT VENOUS RT LIMITED Patient: TORIE JOHNSTON Exam Date: 08/21/2022 : 1990 Gender:F Ordering : DR SADI JEWELL M.D. Admission #: [id number] Family : Order #: [id number] CLICK HERE TO VIEW EXAM RADIOLOGY REPORT PROCEDURE: VEIN CENTER EXTREMITY VENOUS RIGHT LIMITED COMPARISON: VC EXT VENOUS RT LIMITED, 10/19/2021. INDICATIONS: Phlebitis of superficial veins of lower extremity I80.01 TECHNIQUE: Lower extremity franco scale and Duplex Doppler evaluation of the deep venous system from the inguinal ligament through the calf veins. FINDINGS: REGION: Right lower extremity. THROMBI: Negative for DVT. 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 COMPRESSIBILITY: Non-compressible segments corresponding to thrombus. FLOW: Areas of no flow corresponding to thrombus. OTHER: No patent varicose veins remain *Exam performed in accordance with [facility] practice guidelines- Peripheral venous ultrasound, August 20, 2009. CONCLUSION: Post ablation occlusion of treated varicose veins. Dictated by: Sadi Jewell MD on 08/21/2022 at 09:41 Approved by: Sadi Jewell MD on 08/21/2022 at 09:43 Normal [facility] VC INJ FOAM SCLERO W US MLTI on 08-16-2022 VC INJ FOAM SCLERO W US MLTI Patient: TORIE JOHNSTON Exam Date: 08/16/2022 : 1990 Gender:F Ordering : DR SADI JEWELL M.D. Admission #: [id number] Family : Order #: [id number] CLICK HERE TO VIEW EXAM RADIOLOGY REPORT PROCEDURE: VEIN CENTER INJECTION FOAM SCLEROSING SOLUTION WITH ULTRASOUND MULTIPLE VEINS COMPARISON: VC VENOUS REFLUX GERBER LMT, 09/04/2021. VC COMP CONSULTATION, 09/19/2021. Pre-operative Diagnosis: CEAP class C3 venous insufficiency with pain, tenderness, edema and incompetent anterior accessory saphenous vein, chronic venous insufficiency right leg secondary to venous incompetence Post-operative Diagnosis: CEAP class C3 venous insufficiency with pain, tenderness, edema and incompetent anterior accessory saphenous vein, chronic venous insufficiency right leg secondary to venous incompetence Procedure Performed: 1. Ultrasound-guided microfoam chemical ablation with Varithena(r) 2. Intraoperative ultrasound guidance Physician: Camilo Wood M.D. Anesthesia: None. Indications for Procedure: 29 to year old female. Symptoms including dilated, bulging veins, leg pain and swelling, edema for many years despite conservative medical therapy including medical compression stockings, exercise and analgesics. Prior procedures include: Endovenous laser ablation. Incompetent, discontinuous, and tortuous distal aspect of the right anterior accessory saphenous vein. Duplex scan showed reflux and enlarged diameters up to 5 mm. The patient has undergone informed consent including management options where the complications of infection, bleeding, pain, and skin injury were discussed. Particular attention was spent discussing thrombus extension and deep vein thrombosis as well as the possibility of pulmonary embolus and treatment with oral or injectable blood thinners. Procedure: The patient walked to the procedure room. All applicable staff donned appropriate apparel. A procedure timeout was performed to confirm correct patient, correct extremity, correct procedure, and correct room set-up including presence of all applicable supplies, devices, and drugs. A duplex ultrasound, performed by myself confirmed the location and incompetence of branch saphenous varicosities and their course was marked on the skin together with the dilated tributaries. The extent of treatment of the veins and the associated varicosities was determined through ultrasound mapping. The skin was prepped and then punctured with a butterfly needle and advanced under ultrasound guidance. The Varithena(r) canister was activated and the canister was primed and purged as required in the instructions for use. Varithena(r) was drawn into a sterile syringe. Varithena(r) was slowly administered at 0.5-1.0 cc/second with close observation by ultrasound of its course in the vessels. Total volume utilized was: 5 mL (2 mL within a 5 mm varicosity/distal anterior accessory saphenous vein within distal medial upper leg; 3 mL within a 5 mm varicosity/branch of the anterior accessory saphenous vein within the mid medial upper leg). Following administration of Varithena(r), the leg was elevated and the patient was asked to repeatedly dorsiflex the ankle to limit flow of Varithena(r) into perforating veins. Once appropriate spasm had been confirmed in the treated veins, the vascular catheter was removed from the leg and light pressure was applied over the puncture site for hemostasis The common femoral and deep superficial veins were then evaluated for flow and compressibility prior to dressing placement. The lower extremity was kept elevated at 45 degrees above the horizontal and cording material was applied over the saphenous segments and tributaries to allow for eccentric compression over the target vessels including the targeted saphenous vein(s). A multilayer dressing was applied consisting of foam pads, coban and thigh-high 20-30 mm Hg compression elastic support hose were placed on the patient. The leg was lowered only after compression had been applied and the patient was immediately ambulatory. The patient ambulated 10 minutes under supervision and was without apparent concerns at time of release Post-care instructions include advising patient to keep post-treatment bandages in place and dry for 48 hours, avoid extended periods of inactivity, avoid heavy exercise for one week, wear compression stockings on the treated leg continuously for two weeks, to walk daily for 10 minutes over the next month. The patient was instructed to take an anti-inflammatory medicine as needed and to follow up for color duplex scan of the Saphenous veins, the treated branch saphenous varicosities, the adjacent deep veins, and additional treatment within 7 days. PERSONNEL: Ketan Haley R.N. Dictated by: Camilo Wood M.D. on 08/16/2022 at 11:53 Approved by: Camilo Wood M.D. on 08/16/2022 at 11:58 Normal [facility] CBC W MANUAL DIFFon 05-16-20 22 ATYPICAL LYMPH # 0.32 103/ul Normal [facility] Comment on above: Performed By: #### T SH #### [facility] [address] [place] [address] Dr. Zuly Aparicio ATYPICAL LYMPH % 3 % Normal [facility] Comment on above: Performed By: #### T SH #### [facility] [address] [place] [address] Dr. Zuly Aparicio BAND # 0.0 103/ul Normal 0.0-0.3 [facility] Comment on above: Performed By: #### T SH #### [facility] [address] [place] [address] Dr. Zuly Aparicio BAND % 0 % Normal 0-5 [facility] Comment on above: Performed By: #### T SH #### [facility] [address] [place] [address] Dr. Zuly Aparicio BASOM # 0.00 103/ul Normal 0.00-0.10 [facility] Comment on above: Performed By: #### T SH #### [facility] [address] [place] [address] Dr. Zuly Aparicio BASOM % 0.0 % Critically low 0.2-2.0 [facility] Comment on above: Performed By: #### T SH #### [facility] [address] [place] [address] Dr. Zuly Aparicio BLAST # Normal [facility] Comment on above: Performed By: #### T SH #### [facility] [address] [place] [address] Dr. Zuly Aparicio BLAST % Normal [facility] Comment on above: Performed By: #### T SH #### [facility] [address] [place] [address] Dr. Zuly Aparicio CORRECTED WBC Normal 4.0-11.0 [facility] Comment on above: Performed By: #### T SH #### [facility] [address] [place] [address] Dr. Zuly Aparicio EOS # 0.10 103/ul Normal 0.00-0.70 [facility] Comment on above: Performed By: #### T SH #### [facility] [address] [place] [address] Dr. Zuly Aparicio EOS% 1.0 % Normal 0.9-7.0 [facility] Comment on above: Performed By: #### T SH #### [facility] [address] [place] [address] Dr. Zuly Aparicio HCT 34.3 % Critically low 36.0-48.0 [facility] Comment on above: Performed By: #### T SH #### [facility] [address] [place] [address] Dr. Zuly Aparicio HGB 10.6 g/dl Critically low 12.0-16.0 [facility] Comment on above: Performed By: #### T SH #### [facility] [address] [address] [address] Zuly Aparicio LYMPHM # 0.32 103/ul Critically low 1.20-3.80 [facility] Comment on above: Performed By: #### T SH #### [facility] [address] [address] [address] Zuly Aparicio LYMPHM% 3.0 % Critically low 20.5-60.0 [facility] Comment on above: Performed By: #### T SH #### [facility] [address] [place] [address] Dr. Zuly Aparicio MCH 18.2 pg Critically low 26.7-34.0 [facility] Comment on above: Performed By: #### T SH #### [facility] [address] [place] [address] Dr. Zuly Aparicio MCHC 30.9 g/dl Normal 29.9-35.2 [facility] Comment on above: Performed By: #### T SH #### [facility] [address] [place] [address] Dr. Zuly Aparicio MCV 59.0 fL Critically low 81.0-99.0 [facility] Comment on above: Performed By: #### T SH #### [facility] [address] [place] [address] Dr. Zuly Aparicio METAMYELOCYTE # Normal [facility] Comment on above: Performed By: #### T SH #### [facility] [address] [place] [address] Dr. Zuly Aparicio METAMYELOCYTE % Normal [facility] Comment on above: Performed By: #### T SH #### [facility] [address] [place] [address] Dr. Zuly Aparicio MICROCYTOSIS 3+ Normal [facility] Comment on above: Performed By: #### T SH #### [facility] [address] [place] [address] Dr. Zuly Aparicio MONOM# 0.32 103/ul Normal 0.30-0.80 [facility] Comment on above: Performed By: #### T SH #### [facility] [address] [address] [address] Zuly Aparicio MONOM% 3.0 % Normal 1.7-12.0 [facility] Comment on above: Performed By: #### T SH #### [facility] [address] [place] [address] Dr. Zuly Aparicio MPV 10.6 fL Normal 9.5-13.5 [facility] Comment on above: Performed By: #### T SH #### [facility] [address] [place] [address] Dr. Zuly Aparicio MYELOCYTE # Normal [facility] Comment on above: Performed By: #### T SH #### [facility] [address] [place] [address] Dr. Zuly Aparicio MYELOCYTE % Normal [facility] Comment on above: Performed By: #### T SH #### [facility] [address] [place] [address] Dr. Zuly Aparicio NRBC Normal [facility] Comment on above: Performed By: #### T SH #### [facility] [address] [place] [address] Dr. Zuly Aparicio OVALOCYTES SLIGHT Normal [facility] Comment on above: Performed By: #### T SH #### [facility] [address] [place] [address] Dr. Zuly Aparicio PLT 290 103/ul Normal 150-450 [facility] Comment on above: Performed By: #### T SH #### [facility] [address] [place] [address] Dr. Zuly Aparicio RBC 5.81 106/ul Critically high 4.20-5.40 [facility] Comment on above: Performed By: #### T SH #### [facility] [address] [place] [address] Dr. Zuly Aparicio RDW 15.4 % Critically high 11.0-15.0 [facility] Comment on above: Performed By: #### T SH #### [facility] [address] [place] [address] Dr. Zuly Aparicio SEG # 9.45 103/ul Critically high 1.40-6.50 [facility] Comment on above: Performed By: #### T SH #### [facility] [address] [address] [address] Zuly Aparicio SEG % 90.0 % Critically high 43.0-75.0 [facility] Comment on above: Performed By: #### T SH #### [facility] [address] [address] [address] Zuly Aparicio TOXIC GRANULATION SLIGHT Normal [facility] Comment on above: Performed By: #### T SH #### [facility] [address] [address] [address] Zuly Aparicio WBC 10.5 103/ul Normal 4.0-11.0 [facility] Comment on above: Performed By: #### T SH #### [facility] [address] [address] [address] Zuly Aparicio CULTURE URINEon 05-16-2022 CULTURE URINE Culture Observations : LIGHT GROWTH OF MIXED GENITAL JI. NO POTENTIAL PATHOGENS SEEN. Normal [facility] Comment on above: Performed By: #### U RCX ####[facility] [address] [address]Dr. Zuly Aparicio Covid-19 PCR (CVDTB)on 04-27 SARS-CoV-2 (COVID-19) RNA BORIS+probe Ql (Unsp spec) Not detected Normal NOT DETECTED [facility] Comment on above: Result Comment: This test is not yet approved or cleared by the [place] FDA. When there are no FDA-approved or cleared tests available, and other criteria are met, FDA can make tests available under an emergency access mechanism called an Emergency Use Authorization (EUA). The EUA for this test is supported by the [place] of Health and Human Service's (HHS's) declaration that circumstances exist to justify the emergency use of in vitro diagnostics for the detection and/or diagnosis of the virus that causes COVID-19. This EUA will remain in effect (meaning this test can be used) for the duration of the COVID-19 declaration justifying emergency of IVDs, unless it is terminated or revoked by FDA (after which the test may no longer be used). When diagnostic testing is negative, the possibility of a false negative should be considered in the context of a patient's recent exposures and the presence of clinical signs and symptoms consistent with SARS-CoV-2. Performed By: #### T SH #### [facility] [address] [place] [address] Dr. Zuly Aparicio ER URINE PROFILEon 2 Bilirubin Ql (U) Negative Normal NEGATIVE [facility] Comment on above: Performed By: #### T SH #### [facility] [address] [place] [address] Dr. Zuly Aparicio Clarity (U) CLEAR Normal CLEAR [facility] Comment on above: Performed By: #### T SH #### [facility] [address] [place] [address] Dr. Zuly Aparicio Color (U) YELLOW Normal YELLOW [facility] Comment on above: Performed By: #### T SH #### [facility] [address] [place] [address] Dr. Zuly Aparicio ERUBHUPINDER A micrscopic examination will be performed if indicated. Normal [facility] Comment on above: Performed By: #### T SH #### [facility] [address] [place] [address] Dr. Zuly Aparicio Glucose Ql (U) Negative Normal NEGATIVE [facility] Comment on above: Performed By: #### T SH #### [facility] [address] [place] [address] Dr. Zuly Aparicio Hemoglobin Ql (U) Negative Normal NEGATIVE [facility] Comment on above: Performed By: #### T SH #### [facility] [address] [place] [address] Dr. Zuly Aparicio Ketones Ql (U) TRACE Abnormal NEGATIVE [facility] Comment on above: Performed By: #### T SH #### [facility] [address] [place] [address] Dr. Zuly Aparicio LEUKOCYTES TRACE Abnormal NEGATIVE [facility] Comment on above: Performed By: #### T SH #### [facility] [address] [place] [address] Dr. Zuly Aparicio Nitrite Ql (U) Negative Normal NEGATIVE [facility] Comment on above: Performed By: #### T SH #### [facility] [address] [place] [address] Dr. Zuly Aparicio pH (U) 5.5 [pH] Normal 5-9 [facility] Comment on above: Performed By: #### T SH #### [facility] [address] [place] [address] Dr. Zuly Aparicio SPEC GRAVITY 1.020 Normal 1.005-<=1.02 5 [facility] Comment on above: Performed By: #### T SH #### [facility] [address] [place] [address] Dr. Zuly Aparicio UA PROTEIN Negative Normal NEGATIVE/ TRACE [facility] Comment on above: Performed By: #### T SH #### [facility] [address] [place] [address] Dr. Zuly Aparicio UR MICRO IND INDICATED Normal [facility] Comment on above: Performed By: #### T SH #### [facility] [address] [place] [address] Dr. Zuly Aparicio Urobilinogen Qn (U) 1.0 {Isamar'U}/dL Normal 0.2 - 1. 0 [facility] Comment on above: Performed By: #### T SH #### [facility] [address] [place] [address] Dr. Zuly Aparicio INFLUENZA A AND B AGon 05-16 INFLUENZA A AG Negative Normal NEGATIVE SEE COMMENT [facility] Comment on above: Performed By: #### I NFLUAB #### [facility] [address] [place] [address] Dr. Zuly Aparicio INFLUENZA B AG Negative Normal NEGATIVE SEE COMMENT [facility] Comment on above: Performed By: #### I NFLUAB #### [facility] [address] [place] [address] Dr. Zuly Aparicio INTERNAL CONTROLS Within Normal Limits Normal Wi thin Normal Limits [facility] Comment on above: Performed By: #### I NFLUAB #### [facility] [address] [address] [address] Zuly Aparicio PREG HCG QUALon 05-16-2022 , QUAL Negative Normal NEGATIVE [facility] Comment on above: Performed By: #### T SH #### [facility] [address] [address] [address] Zuly Aparicio PROF 14(COMP METB)on 022 Albumin [Mass/Vol] 3.6 g/dL Normal 3.4-5.0 [facility] Comment on above: Performed By: #### C MP #### [facility] [address] [place] [address] Dr. Zuly Aparicio Albumin/Globulin [Mass ratio] 0.9 {ratio} Normal [facility] Comment on above: Performed By: #### C MP #### [facility] [address] [place] [address] Dr. Zuly Aparicio ALP [Catalytic activity/Vol] 88 U/L Normal 46-116 [facility] Comment on above: Performed By: #### C MP #### [facility] [address] [place] [address] Dr. Zuly Aparicio ALT [Catalytic activity/Vol] 52 U/L Normal 14-59 [facility] Comment on above: Performed By: #### C MP #### [facility] [address] [place] [address] Dr. Zuly Aparicio Anion gap [Moles/Vol] 13.4 mmol/L Normal [facility] Comment on above: Performed By: #### C MP #### [facility] [address] [place] [address] Dr. Zuly Aparicio AST [Catalytic activity/Vol] 29 U/L Normal 15-37 [facility] Comment on above: Performed By: #### C MP #### [facility] [address] [place] [address] Dr. Zuly Aparicio Bilirubin [Mass/Vol] 1.2 mg/dL Critically high 0.2-1.0 [facility] Comment on above: Performed By: #### C MP #### [facility] [address] [address] [address] Zuly Aparicio Calcium [Mass/Vol] 8.7 mg/dL Normal 8.5-10.1 [facility] Comment on above: Performed By: #### C MP #### [facility] [address] [address] [address] Zuly Aparicio Chloride [Moles/Vol] 101 mmol/L Normal 98-107 [facility] Comment on above: Performed By: #### C MP #### [facility] [address] [address] [address] Zuly Aparicio CO2 [Moles/Vol] 25.5 mmol/L Normal 21.0-32.0 [facility] Comment on above: Performed By: #### C MP #### [facility] [address] [place] [address] Dr. Zuly Aparicio Creatinine [Mass/Vol] 1.07 mg/dL Critically high 0.55-1.02 [facility] Comment on above: Performed By: #### C MP #### [facility] [address] [address] [address] Zuly Aparicio EGFR-AF BANGLADESHI >60 Normal >=60 [facility] Comment on above: Performed By: #### C MP #### [facility] [address] [place] [address] Dr. Zuly Aparicio EGFR-NON AF BANGLADESHI 59 mL/min/1.73m2 Critically low >=60 [facility] Comment on above: Performed By: #### C MP #### [facility] [address] [address] [address] Zuly Aparicio Globulin (S) [Mass/Vol] 4.0 g/dL Normal [facility] Comment on above: Performed By: #### C MP #### [facility] [address] [address] [address] Zuly Aparciio Glucose [Mass/Vol] 111 mg/dL Critically high 74-106 [facility] Comment on above: Performed By: #### C MP #### [facility] [address] [place] [address] Dr. Zuly Aparicio Potassium [Moles/Vol] 3.9 mmol/L Normal 3.5-5.1 [facility] Comment on above: Performed By: #### C MP #### [facility] [address] [place] [address] Dr. Zuly Aparicio Protein [Mass/Vol] 7.6 g/dL Normal 6.4-8.2 [facility] Comment on above: Performed By: #### C MP #### [facility] [address] [address] [address] Zuly Aparicio Sodium [Moles/Vol] 136 mmol/L Normal 136-145 [facility] Comment on above: Performed By: #### C MP #### [facility] [address] [place] [address] Dr. Zuly Aparicio Urea nitrogen [Mass/Vol] 11.0 mg/dL Normal 7.0-18.0 [facility] Comment on above: Performed By: #### C MP #### [facility] [address] [place] [address] Dr. Zuly Aparicio Urea nitrogen/Creatinine [Mass ratio] 10.3 mg/mg Normal [facility] Comment on above: Performed By: #### C MP #### [facility] [address] [place] [address] Dr. Zluy Aparicio STREPT SCREENon 05-16-2022 STREP SCREEN A Positive Abnormal NEGATIVE [facility] Comment on above: Performed By: #### JEFERSON ASHER #### [facility] [address] [place] [address] Dr. Zuly Aparicio URINE MICROSCOPIC ONLYon BACTERIA MODERATE Abnormal NONE SEEN [facility] Comment on above: Performed By: #### T SH #### [facility] [address] [place] [address] Dr. Zuly Aparicio Bacteria identified Cx Nom (U) INDICATED Normal [facility] Comment on above: Performed By: #### T SH #### [facility] [address] [place] [address] Dr. Zuly Aparicio CAST NONE SEEN Normal NONE SEEN [facility] Comment on above: Performed By: #### T SH #### [facility] [address] [place] [address] Dr. Zuly Aparicio Crystals LM Nom (Urine sed) NONE SEEN Normal NONE SEEN [facility] Comment on above: Performed By: #### T SH #### [facility] [address] [place] [address] Dr. Zuly Aparicio Epithelial cells LM Ql (Urine sed) MANY Abnormal NONE SEEN /RARE [facility] Comment on above: Performed By: #### T SH #### [facility] [address] [place] [address] Dr. Zuly Aparicio MUCOUS NONE SEEN Normal NONE SEEN [facility] Comment on above: Performed By: #### T SH #### [facility] [address] [place] [address] Dr. Zuly Aparicio RBC 2-5 Abnormal 0-2 [facility] Comment on above: Performed By: #### T SH #### [facility] [address] [place] [address] Dr. Zuly Aparicio WBC 5-10 Abnormal NONE SEEN [facility] Comment on above: Performed By: #### T SH #### [facility] [address] [place] [address] Dr. Zuly Aparicio XR CHEST 1 Von 05-16-2022 XR CHEST 1 V CLINICAL HISTORY: Cough COMPARISON: Chest radiograph 12/20/2021 FINDINGS: Portable AP view of the chest obtained. Cardiomediastinal silhouette is normal. Lungs are clear, no evidence of infiltrate, suspicious nodule, or mass. No evidence of significant pleural fluid on this portable projection. No acute bony abnormality. IMPRESSION: No acute abnormality. Electronically authenticated by: PAKO JERRY Date: 2022-05-16 05:03 Normal [facility] AMYLASEon 04-19-2022 Amylase [Catalytic activity/Vol] 41 U/L Normal 25-115 [facility] Comment on above: Performed By: #### L IPA, ANA #### [facility] [address] [place] [address] Dr. Zuly Aparicio CBC AUTO DIFFon 04-19-2022 BASO # 0.0 103/ul Normal 0.0-0.1 [facility] Comment on above: Performed By: #### C BC ####[facility] [address] [place] [address]Dr. Zuly Markus Basophils/100 WBC (Bld) 0.4 % Normal 0.2-2.0 [facility] Comment on above: Performed By: #### C BC ####[facility] [address] [place], [place] [address]Dr. Zuly Aparicio EO # 0.2 103/ul Normal 0.0-0.7 [facility] Comment on above: Performed By: #### C BC ####[facility] [address] [place], [place] [address]Dr. Lolacuauhtemoc Aparicio Eosinophils/100 WBC (Bld) 3.2 % Normal 0.9-7.0 [facility] Comment on above: Performed By: #### C BC ####[facility] [address] [place], [place] [address]Dr. Zuly Markus Erythrocyte distribution width (RBC) [Ratio] 15.7 % Critically high 11.0-15.0 [facility] Comment on above: Performed By: #### C BC ####[facility] [address] [place], [place] [address]Dr. Zuly Aparicio Hematocrit (Bld) [Volume fraction] 33.1 % Critically low 36.0-48.0 [facility] Comment on above: Performed By: #### C BC ####[facility] [address] [place], [place] [address]Dr. Zuly Aparicio Hemoglobin (Bld) [Mass/Vol] 10.3 g/dL Critically low 12.0-16.0 [facility] Comment on above: Performed By: #### C BC ####[facility] [address] [place], [place] [address]Dr. Lolacuauhtemoc Aparicio IG # 0.01 10e3/ul Normal 0.00-0.03 [facility] Comment on above: Performed By: #### C BC ####[facility] [address] [place], [place] [address]Dr. Zuly Aparicio IG % 0.2 % Normal 0.0-0.5 [facility] Comment on above: Performed By: #### C BC ####[facility] [address] [place] [address]Dr. Zuly Markus LYMPH # 1.8 103/ul Normal 1.2-3.8 [facility] Comment on above: Performed By: #### C BC ####[facility] [address] [place] [address]Dr. Lolacuauhtemoc Aparicio Lymphocytes/100 WBC (Bld) 34.5 % Normal 20.5-60.0 [facility] Comment on above: Performed By: #### C BC ####[facility] [address] [place], [place] [address]Dr. Zuly Aparicio MANUAL DIFF REQ NO Normal [facility] Comment on above: Performed By: #### C BC ####[facility] [address] [place], [place] [address]Dr. Lolacuauhtemoc Aparicio MCH (RBC) [Entitic mass] 18.5 pg Critically low 26.7-34.0 [facility] Comment on above: Performed By: #### C BC ####[facility] [address] [place], [place] [address]Dr. Zuly Markus MCHC (RBC) [Mass/Vol] 31.1 g/dL Normal 29.9-35.2 [facility] Comment on above: Performed By: #### C BC ####[facility] [address] [place], [place] [address]Dr. Zuly Aparicio MCV (RBC) [Entitic vol] 59.3 fL Critically low 81.0-99.0 [facility] Comment on above: Performed By: #### C BC ####[facility] [address] [place], [place] [address]DrNikia Aparicio MONO # 0.3 103/ul Normal 0.3-0.8 [facility] Comment on above: Performed By: #### C BC ####[facility] [address] [place], [place] [address]Dr. Zuly Aparicio Monocytes/100 WBC (Bld) 5.9 % Normal 1.7-12.0 [facility] Comment on above: Performed By: #### C BC ####[facility] [address] [place] [address]Dr. Zuly Aparicio NEUT # 2.9 103/ul Normal 1.4-6.5 [facility] Comment on above: Performed By: #### C BC ####[facility] [address] [place] [address]Dr. Zuly Aparicio Neutrophils/100 WBC (Bld) 55.8 % Normal 43.0-75.0 [facility] Comment on above: Performed By: #### C BC ####[facility] [address] [place] [address]Dr. Zuly Aparicio Platelet mean volume (Bld) [Entitic vol] 10.1 fL Normal 9.5-13.5 [facility] Comment on above: Performed By: #### C BC ####[facility] [address] [place] [address]Dr. Zuly Aparicio PLT 341 103/ul Normal 150-450 [facility] Comment on above: Performed By: #### C BC ####[facility] [address] [place] [address]Dr. Zuly Aparicio RBC 5.58 106/ul Critically high 4.20-5.40 [facility] Comment on above: Performed By: #### C BC ####[facility] [address] [place], [place] [address]Dr. Zuly Aparicio WBC 5.3 103/ul Normal 4.0-11.0 [facility] Comment on above: Performed By: #### C BC ####[facility] [address] [place], [place] [address]Dr. Zuly Aparicio CT ABD/PELVIS WO CONon 04-19 CT ABD/PELVIS WO CON EXAMINATION: CT ABD/PELVIS WO CON, 04/19/2022 7:51 PM EST HISTORY: CALCULUS OF KIDNEY. COMPARISON: CT abdomen and pelvis 10/09/2020. TECHNIQUE: CT scan of the abdomen and pelvis was performed without IV contrast. CT dose reduction technique was used, including Automated Exposure Control. FINDINGS: LOWER CHEST: The lung bases are clear. LIVER: Normal in size and attenuation. No focal lesions. GALLBLADDER AND BILIARY SYSTEM: Normal. SPLEEN: Moderately enlarged measuring 15 cm AP. This is stable. PANCREAS: 5 mm fat density lesion in the neck of the pancreas which may represent a lipoma and this is stable. Otherwise unremarkable. ADRENAL GLANDS: Normal. KIDNEYS AND URETERS: Normal, with no urolithiasis or obstructive uropathy. VASCULATURE: Normal. RETROPERITONEUM AND LYMPH NODES: Normal, with no lymphadenopathy. GASTROINTESTINAL TRACT/MESENTERY: Multiple diverticula in the descending and sigmoid colon with no acute diverticulitis. Normal mesentery/peritoneum. The appendix is not visualized. BLADDER: Normal. REPRODUCTIVE SYSTEM: The uterus and left adnexa appear normal. There are two right adnexal surgical clips consistent with previous tubal ligation. There is an additional clip more superiorly in the right lateral pelvis which appears to have migrated from the left adnexa where it was located on the previous study. There is another clip in the left anterior pelvis on image 104. Trace free pelvic fluid. BODY WALL: Normal. BONES: No acute abnormality. IMPRESSION: 1. No urolithiasis or obstructive uropathy. 2. Trace free pelvic fluid, likely physiologic in nature. 3. Left adnexal tubal ligation clips have migrated into the right lateral pelvis and left anterior pelvis since the CT from 10/09/2020. 4. Colonic diverticulosis. 5. Stable splenomegaly. 6. The appendix is not visualized. Electronically authenticated by: CAMILO RICKETTS Date: 2022-04-19 21:52 Normal [facility] ER URINE PROFILEon 2 Bilirubin Ql (U) Negative Normal NEGATIVE [facility] Comment on above: Performed By: #### E RUR PREGU ####[facility] [address] [place], [place] [address]Qr. Zuly Aparicio Clarity (U) CLEAR Normal CLEAR [facility] Comment on above: Performed By: #### E RUR, PREGU ####[facility] [address] [place], [place] [address]JyNikia Aparicio Color (U) LT. YELLOW Normal YELLOW [facility] Comment on above: Performed By: #### E RUR, PREGU ####[facility] [address] [place] [address]Dr. Zuly Aparicio ERUAHD A micrscopic examination will be performed if indicated. Normal [facility] Comment on above: Performed By: #### E RUR, PREGU ####[facility] [address] [place] [address]Dr. Lolacuauhtemoc Aparicio Glucose Ql (U) Negative Normal NEGATIVE [facility] Comment on above: Performed By: #### Roshan RUR, PREGU ####[facility] [address] [place], [place] [address]Dr. Lolacuauhtemoc Aparciio Hemoglobin Ql (U) Negative Normal NEGATIVE [facility] Comment on above: Performed By: #### Roshan RUR, PREGU ####[facility] [address] [place], [place] [address]Dr. Zuly Aparicio Ketones Ql (U) Negative Normal NEGATIVE [facility] Comment on above: Performed By: #### Roshan RUR, PREGU ####[facility] [address] [place], [place] [address]Dr. Lolacuauhtemoc Aparicio LEUKOCYTES Negative Normal NEGATIVE [facility] Comment on above: Performed By: #### Roshan RUR, PREGU ####[facility] [address] [place], [place] [address]Dr. Zuly Markus Nitrite Ql (U) Negative Normal NEGATIVE [facility] Comment on above: Performed By: #### Roshan MARTINEZR, PREGU ####[facility] [address] [place], [place] [address]Dr. Zuly Aparicio pH (U) 6.0 [pH] Normal 5-9 [facility] Comment on above: Performed By: #### Roshan RUR, PREGU ####[facility] [address] [place], [place] [address]Dr. Zuly Aparicio SPEC GRAVITY 1.010 Normal 1.005-<=1.02 5 [facility] Comment on above: Performed By: #### Roshan RUR, PREGU ####[facility] [address] [place], [place] [address]Dr. Zuly Aparicio UA PROTEIN Negative Normal NEGATIVE/ TRACE [facility] Comment on above: Performed By: #### E RUR, PREGU ####[facility] [address] [place] [address]DrNikia Aparicio UR MICRO IND NOT INDICATED Normal [facility] Comment on above: Performed By: #### E RUR, PREGU ####[facility] [address] [place] [address]Dr. Zuly Aparicio Urobilinogen Qn (U) 0.2 {Isamar'U}/dL Normal 0.2 - 1. 0 [facility] Comment on above: Performed By: #### E RUR, PREGU ####[facility] [address] [place] [address]Dr. Zuly Aparicio LIPASEon 04-19-2022 Lipase [Catalytic activity/Vol] 161.0 U/L Normal 73.0-393.0 [facility] Comment on above: Performed By: #### L IPA, ANA #### [facility] [address] [place] [address] Dr. Zuly Aparicio URon 04-19-2022 , QUAL Negative Normal NEGATIVE [facility] Comment on above: Performed By: #### E RUR, PREGU ####[facility] [address] [place] [address]DrNikia Aparicio PROF 14(COMP METB)on 022 Albumin [Mass/Vol] 3.9 g/dL Normal 3.4-5.0 [facility] Comment on above: Performed By: #### T SH #### [facility] [address] [place] [address] Dr. Zuly Aparicio Albumin/Globulin [Mass ratio] 1.1 {ratio} Normal [facility] Comment on above: Performed By: #### T SH #### [facility] [address] [place] [address] Dr. Zuly Aparicio ALP [Catalytic activity/Vol] 69 U/L Normal 46-116 [facility] Comment on above: Performed By: #### T SH #### [facility] [address] [place] [address] Dr. Zuly Aparicio ALT [Catalytic activity/Vol] 46 U/L Normal 14-59 [facility] Comment on above: Performed By: #### T SH #### [facility] [address] [place] [address] Dr. Zuly Aparicio Anion gap [Moles/Vol] 12.1 mmol/L Normal [facility] Comment on above: Performed By: #### T SH #### [facility] [address] [place] [address] Dr. Zuly Aparicio AST [Catalytic activity/Vol] 24 U/L Normal 15-37 [facility] Comment on above: Performed By: #### T SH #### [facility] [address] [place] [address] Dr. Zuly Aparicio Bilirubin [Mass/Vol] 0.5 mg/dL Normal 0.2-1.0 [facility] Comment on above: Performed By: #### T SH #### [facility] [address] [place] [address] Dr. Zuly Aparicio Calcium [Mass/Vol] 8.7 mg/dL Normal 8.5-10.1 [facility] Comment on above: Performed By: #### T SH #### [facility] [address] [place] [address] Dr. Zuly Aparicio Chloride [Moles/Vol] 106 mmol/L Normal 98-107 [facility] Comment on above: Performed By: #### T SH #### [facility] [address] [place] [address] Dr. Zuly Aparicio CO2 [Moles/Vol] 25.4 mmol/L Normal 21.0-32.0 [facility] Comment on above: Performed By: #### T SH #### [facility] [address] [place] [address] Dr. Zuly Aparicio Creatinine [Mass/Vol] 1.11 mg/dL Critically high 0.55-1.02 [facility] Comment on above: Performed By: #### T SH #### [facility] [address] [place] [address] Dr. Zuly Aparicio EGFR-AF BANGLADESHI >60 Normal >=60 [facility] Comment on above: Performed By: #### T SH #### [facility] [address] [place] [address] [address] Zuly Aparicio EGFR-NON AF BANGLADESHI 57 mL/min/1.73m2 Critically low >=60 [facility] Comment on above: Performed By: #### T SH #### [facility] [address] [address] [address] Zuly Aparicio Globulin (S) [Mass/Vol] 3.5 g/dL Normal [facility] Comment on above: Performed By: #### T SH #### [facility] [address] [address] [address] Zuly Aparicio Glucose [Mass/Vol] 96 mg/dL Normal 74-106 [facility] Comment on above: Performed By: #### T SH #### [facility] [address] [address] [address] Zuly Aparicio Potassium [Moles/Vol] 3.5 mmol/L Normal 3.5-5.1 [facility] Comment on above: Performed By: #### T SH #### [facility] [address] [place] [address] Dr. Zuly Aparicio Protein [Mass/Vol] 7.4 g/dL Normal 6.4-8.2 [facility] Comment on above: Performed By: #### T SH #### [facility] [address] [address] [address] Zuly Aparicio Sodium [Moles/Vol] 140 mmol/L Normal 136-145 [facility] Comment on above: Performed By: #### T SH #### [facility] [address] [address] [address] Zuly Aparicio Urea nitrogen [Mass/Vol] 12.0 mg/dL Normal 7.0-18.0 [facility] Comment on above: Performed By: #### T SH #### [facility] [address] [address] [address] Zuly Aparicio Urea nitrogen/Creatinine [Mass ratio] 10.8 mg/mg Normal [facility] Comment on above: Performed By: #### T SH #### [facility] [address] [place] [address] Dr. Zuly Aparicio CBC AUTO DIFFon 12-20-2021 BASO # 0.0 103/ul Normal 0.0-0.1 [facility] Comment on above: Performed By: #### T SH #### [facility] [address] [place] [address] Dr. Zuly Aparicio Basophils/100 WBC (Bld) 0.1 % Critically low 0.2-2.0 [facility] Comment on above: Performed By: #### T SH #### [facility] [address] [place] [address] Dr. Zuly Aparicio EO # 0.1 103/ul Normal 0.0-0.7 [facility] Comment on above: Performed By: #### T SH #### [facility] [address] [place] [address] Dr. Zuly Aparicio Eosinophils/100 WBC (Bld) 1.1 % Normal 0.9-7.0 [facility] Comment on above: Performed By: #### T SH #### [facility] [address] [place] [address] Dr. Zuly Aparicio Erythrocyte distribution width (RBC) [Ratio] 15.9 % Critically high 11.0-15.0 [facility] Comment on above: Performed By: #### T SH #### [facility] [address] [place] [address] Dr. Zuly Aparicio Hematocrit (Bld) [Volume fraction] 35.2 % Critically low 36.0-48.0 [facility] Comment on above: Performed By: #### T SH #### [facility] [address] [place] [address] Dr. Zuly Aparicio Hemoglobin (Bld) [Mass/Vol] 10.9 g/dL Critically low 12.0-16.0 [facility] Comment on above: Performed By: #### T SH #### [facility] [address] [place] [address] Dr. Zuly Aparicio IG # 0.02 10e3/ul Normal 0.00-0.03 [facility] Comment on above: Performed By: #### T SH #### [facility] [address] [place] [address] Dr. Zuly Aparicio IG % 0.3 % Normal 0.0-0.5 [facility] Comment on above: Performed By: #### T SH #### [facility] [address] [place] [address] Dr. Zuly Aparicio LYMPH # 2.0 103/ul Normal 1.2-3.8 [facility] Comment on above: Performed By: #### T SH #### [facility] [address] [place] [address] Dr. Zuly Aparicio Lymphocytes/100 WBC (Bld) 28.0 % Normal 20.5-60.0 [facility] Comment on above: Performed By: #### T SH #### [facility] [address] [place] [address] Dr. Zuly Aparicio MANUAL DIFF REQ NO Normal [facility] Comment on above: Performed By: #### T SH #### [facility] [address] [place] [address] Dr. Zuly Aparicio MCH (RBC) [Entitic mass] 18.4 pg Critically low 26.7-34.0 [facility] Comment on above: Performed By: #### T SH #### [facility] [address] [place] [address] Dr. Zuly Aparicio MCHC (RBC) [Mass/Vol] 31.0 g/dL Normal 29.9-35.2 [facility] Comment on above: Performed By: #### T SH #### [facility] [address] [place] [address] Dr. Zuly Aparicio MCV (RBC) [Entitic vol] 59.3 fL Critically low 81.0-99.0 [facility] Comment on above: Performed By: #### T SH #### [facility] [address] [place] [address] Dr. Zuly Aparicio MONO # 0.4 103/ul Normal 0.3-0.8 [facility] Comment on above: Performed By: #### T SH #### [facility] [address] [address] [address] Zuly Aparicio Monocytes/100 WBC (Bld) 4.8 % Normal 1.7-12.0 [facility] Comment on above: Performed By: #### T SH #### [facility] [address] [address] [address] Zuly Aparicio NEUT # 4.7 103/ul Normal 1.4-6.5 [facility] Comment on above: Performed By: #### T SH #### [facility] [address] [address] [address] Zuly Aparicio Neutrophils/100 WBC (Bld) 65.7 % Normal 43.0-75.0 [facility] Comment on above: Performed By: #### T SH #### [facility] [address] [place] [address] Dr. Zuly Aparicio Platelet mean volume (Bld) [Entitic vol] 10.2 fL Normal 9.5-13.5 [facility] Comment on above: Performed By: #### T SH #### [facility] [address] [address] [address] Zuly Aparicio PLT 338 103/ul Normal 150-450 [facility] Comment on above: Performed By: #### T SH #### [facility] [address] [address] [address] Zuly Aparicio RBC 5.94 106/ul Critically high 4.20-5.40 [facility] Comment on above: Performed By: #### T SH #### [facility] [address] [place] [address] Dr. Zuly Aparicio WBC 7.2 103/ul Normal 4.0-11.0 [facility] Comment on above: Performed By: #### T SH #### [facility] [address] [place] [address] HEAD WO CONon 12-20-2021 CT HEAD WO CON EXAM: CT HEAD WO CON INDICATION: Weakness reported. COMPARISON: 12/26/2019 TECHNIQUE: CT of the head without intravenous contrast. Dose reduction techniques were achieved by using automated exposure control and/or adjustment of mA and/or kV according to patient size and/or use of iterative reconstruction technique. FINDINGS: Linear artifact is noted in the posterior fossa and adjacent to the frontal calvarium. Increased attenuation on image 15 through 19 series 5 along the inner table of the frontal calvarium is also noted most suggesting artifact and less likely felt to represent contusion or hemorrhage. There is no evidence of acute intracranial hemorrhage, extra-axial collection, mass effect, midline shift, herniation or hydrocephalus. The ventricles, sulci and cisterns are age appropriate. There is no large area of decreased attenuation in a major vascular territory to indicate acute ischemic change. The soler-white differentiation is intact. The visualized paranasal sinuses and mastoid air cells are clear. The surrounding soft tissues and osseous structures are unremarkable. IMPRESSION: No evidence of acute intracranial hemorrhage, extra-axial collection, mass effect or hydrocephalus. No acute intracranial pathology identified. It should be noted that acute infarct, demyelinating processes, hypoxic injury, or other pathology may not immediately be seen on CT imaging. Recommend MRI for further evaluation if clinically indicated. Electronically authenticated by: LEROY PRETTY Date: 2021-12-20 21:04 Normal [facility] CULTURE URINEon 12-20-2021 CULTURE URINE Culture Observations : LIGHT GROWTH OF MIXED GENITAL JI. NO POTENTIAL PATHOGENS SEEN. Normal [facility] Comment on above: Performed By: #### U RCX ####[facility] [address] [place] [address]Dr. Zuly Aparicio ER URINE PROFILEon 2 Bilirubin Ql (U) Negative Normal NEGATIVE [facility] Comment on above: Performed By: #### CHAYITO ASHERRO #### [facility] [address] [place] [address] Dr. Zuly Aparicio Clarity (U) CLEAR Normal CLEAR [facility] Comment on above: Performed By: #### E CHAYITO HOOPERRO #### [facility] [address] [place] [address] Dr. Zuly Aparicio Color (U) LT. YELLOW Normal YELLOW [facility] [facility] Comment on above: Performed By: #### E CHAYITO HOOPERRO #### [facility] [address] [place] [address] Dr. Zuly JUDD A micrscopic examination will be performed if indicated. Normal [facility] Comment on above: Performed By: #### CHAYITO ASHERRO #### [facility] [address] [place] [address] Dr. Zuly Aparicio Glucose Ql (U) Negative Normal NEGATIVE [facility] Comment on above: Performed By: #### Roshan HOOPER UMICRO #### [facility] [address] [place] [address] Dr. Zuly Aparicio Hemoglobin Ql (U) LARGE Abnormal NEGATIVE [facility] Comment on above: Performed By: #### Roshan HOOPER UMICRO #### [facility] [address] [place] [address] Dr. Zuly Aparicio Ketones Ql (U) Negative Normal NEGATIVE [facility] Comment on above: Performed By: #### Roshan HOOPER UMICRO #### [facility] [address] [place] [address] Dr. Zuly Aparicio LEUKOCYTES Negative Normal NEGATIVE [facility] Comment on above: Performed By: #### Roshan HOOPER UMICRO #### [facility] [address] [place] [address] Dr. Zuly Aparicio Nitrite Ql (U) Negative Normal NEGATIVE [facility] Comment on above: Performed By: #### Roshan HOOPER UMICRO #### [facility] [address] [place] [address] Dr. Zuly Aparicio pH (U) 6.0 [pH] Normal 5-9 [facility] Comment on above: Performed By: #### Roshan HOOPER UMICRO #### [facility] [address] [place] [address] Dr. Zuly Aparicio SPEC GRAVITY 1.015 Normal 1.005-<=1.02 5 [facility] Comment on above: Performed By: #### Roshan HOOPER UMICRO #### [facility] [address] [place] [address] Dr. Zuly Aparicio UA PROTEIN Negative Normal NEGATIVE/ TRACE [facility] Comment on above: Performed By: #### JEFERSON ASHER #### [facility] [address] [place] [address] Dr. Zuly Aparicio UR MICRO IND INDICATED Normal [facility] Comment on above: Performed By: #### E JEFERSON HOOPER #### [facility] [address] [place] [address] Dr. Zuly Aparicio Urobilinogen Qn (U) 1.0 {Isamar'U}/dL Normal 0.2 - 1. 0 [facility] Comment on above: Performed By: #### JEFERSON ASHER #### [facility] [address] [place] [address] Dr. Zuly Aparicio PROF 14(COMP METB)on 022 Albumin [Mass/Vol] 4.1 g/dL Normal 3.4-5.0 [facility] Comment on above: Performed By: #### T SH #### [facility] [address] [place] [address] Dr. Zuly Aparicio Albumin/Globulin [Mass ratio] 1.1 {ratio} Normal [facility] Comment on above: Performed By: #### T SH #### [facility] [address] [place] [address] Dr. Zuly Aparicio ALP [Catalytic activity/Vol] 60 U/L Normal 46-116 [facility] Comment on above: Performed By: #### T SH #### [facility] [address] [place] [address] Dr. Zuly Aparicio ALT [Catalytic activity/Vol] 52 U/L Normal 14-59 [facility] Comment on above: Performed By: #### T SH #### [facility] [address] [place] [address] Dr. Zuly Aparicio Anion gap [Moles/Vol] 11.4 mmol/L Normal [facility] Comment on above: Performed By: #### T SH #### [facility] [address] [place] [address] Dr. Zuly Aparicio AST [Catalytic activity/Vol] 25 U/L Normal 15-37 [facility] Comment on above: Performed By: #### T SH #### [facility] [address] [address] [address] Zuly Aparicio Bilirubin [Mass/Vol] 0.4 mg/dL Normal 0.2-1.0 [facility] Comment on above: Performed By: #### T SH #### [facility] [address] [address] [address] Zuly Aparicio Calcium [Mass/Vol] 8.7 mg/dL Normal 8.5-10.1 [facility] Comment on above: Performed By: #### T SH #### [facility] [address] [address] [address] Zuly Aparicio Chloride [Moles/Vol] 105 mmol/L Normal 98-107 [facility] Comment on above: Performed By: #### T SH #### [facility] [address] [place] [address] Dr. Zuly Aparicio CO2 [Moles/Vol] 26.3 mmol/L Normal 21.0-32.0 [facility] Comment on above: Performed By: #### T SH #### [facility] [address] [place] [address] Dr. Zuly Aparicio Creatinine [Mass/Vol] 1.06 mg/dL Critically high 0.55-1.02 [facility] Comment on above: Performed By: #### T SH #### [facility] [address] [place] [address] Dr. Zuly Aparicio EGFR-AF BANGLADESHI >60 Normal >=60 [facility] Comment on above: Performed By: #### T SH #### [facility] [address] [place] [address] Dr. Zuly Aparicio EGFR-NON AF BANGLADESHI =60 Normal >=60 [facility] Comment on above: Performed By: #### T SH #### [facility] [address] [place] [address] Dr. Zuly Aparicio Globulin (S) [Mass/Vol] 3.6 g/dL Normal [facility] Comment on above: Performed By: #### T SH #### [facility] [address] [address] [address] Zuly Aparicio Glucose [Mass/Vol] 99 mg/dL Normal 74-106 [facility] Comment on above: Performed By: #### T SH #### [facility] [address] [address] [address] Zuly Aparicio Potassium [Moles/Vol] 3.7 mmol/L Normal 3.5-5.1 [facility] Comment on above: Performed By: #### T SH #### [facility] [address] [address] [address] Zuly Aparicio Protein [Mass/Vol] 7.7 g/dL Normal 6.4-8.2 [facility] Comment on above: Performed By: #### T SH #### [facility] [address] [place] [address] Dr. Zuly Aparicio Sodium [Moles/Vol] 139 mmol/L Normal 136-145 [facility] Comment on above: Performed By: #### T SH #### [facility] [address] [place] [address] Dr. Zuly Aparicio Urea nitrogen [Mass/Vol] 17.0 mg/dL Normal 7.0-18.0 [facility] Comment on above: Performed By: #### T SH #### [facility] [address] [place] [address] Dr. Zuly Aparicio Urea nitrogen/Creatinine [Mass ratio] 16.0 mg/mg Normal [facility] Comment on above: Performed By: #### T SH #### [facility] [address] [place] [address] Dr. Zuly Aparicio TSHon 12-20-2021 TSH 3.279 uIU/mL Normal 0.358-3.[address] [facility] Comment on above: Performed By: #### T SH #### [facility] [address] [place] [address] Dr. Zuly Aparicio URINE MICROSCOPIC ONLYon BACTERIA SMALL Abnormal NONE SEEN [facility] Comment on above: Performed By: #### E JEFERSON HOOPER #### [facility] [address] [place] [address] Dr. Zuly Aparicio Bacteria identified Cx Nom (U) INDICATED Normal [facility] Comment on above: Performed By: #### Roshan HOOPER UMICRO #### [facility] [address] [place] [address] Dr. Zuly Aparicio CAST NONE SEEN Normal NONE SEEN [facility] Comment on above: Performed By: #### Roshan HOOPER, UMICRO #### [facility] [address] [place] [address] Dr. Zuly Aparicio Crystals LM Nom (Urine sed) NONE SEEN Normal NONE SEEN [facility] Comment on above: Performed By: #### Roshan HOOPER UMICRO #### [facility] [address] [place] [address] Dr. Zuly Aparicio Epithelial cells LM Ql (Urine sed) MANY Abnormal NONE SEEN /RARE [facility] Comment on above: Performed By: #### Roshan HOOPER UMICRO #### [facility] [address] [place] [address] Dr. Zuly Aparicio MUCOUS NONE SEEN Normal NONE SEEN [facility] Comment on above: Performed By: #### Roshan HOOPER UMICRO #### [facility] [address] [place] [address] Dr. Zuly Aparicio RBC 0-2 Normal 0-2 [facility] Comment on above: Performed By: #### Roshan HOOPER UMICRO #### [facility] [address] [place] [address] Dr. Zuly Aparicio WBC 2-5 Abnormal NONE SEEN [facility] Comment on above: Performed By: #### Roshan HOOPER, UMICRO #### [facility] [address] [place] [address] Dr. Zuly Aparicio XR CHEST 1 Von 12-20-2021 XR CHEST 1 V EXAM: XR CHEST 1 V HISTORY: SHORTNESS OF BREATH COMPARISON: Chest radiograph 01/14/2021 and 06/29/2020 FINDINGS: No focal consolidation or prominent edema. There is no pleural effusion or pneumothorax. The cardiomediastinal contour is stable. Visualized portions of the upper abdomen are unremarkable. No acute osseus abnormality. IMPRESSION: No acute cardiopulmonary abnormality. Electronically authenticated by: LUDY GARCIA Date: 2021-12-20 21:21 Normal [facility] Coding Summary.on 12-13-2021 Coding Summary. [id number] G h0bWw+PGhlYWQ+PZ6XEBJ kG01coBJzpL5GO5lBMF3A UQIZVMOJLJ8EVO0wpLS0O NbvS1BisaBm OxlfpDEjNA11VPy4UUD1k FelCIttqE2ynDRzP3k5Yv AcIU59lH00JIatEMKqArQ 3LjZpbjsgbWFy C0xzJiBuuEScQwf+PHRhY mxlIHdpZHRoPScxMDAlJy KwvQttOJ9gLq7oNFPgRNE vbGxhcHNlOiBj g4oeFJUcCCgnXV7czYzfO 1SroCM2MMTdo9g8Cd50cS I+YOQsNNQ7sXikDNgyy81 3WyWst6brKPF6 hDOmZGmnJHJ0W96ad2M9Z QIyOEIkXPB5lAB9sG6zgT hymkpwM3YslOBcRfJ3KDB 5wCLoaK8reXbq yiiaiY0xQpl+E93ZRF0KT OUHPO3JXcj0U3ViHbcbmQ I+RA60WYYiZU46dVJosOP pa6noeCa5OsDx QZTlLEM8eXzuJZmwn1LkJ QFbZ00cgXVfa0I7CBGznD xpwYUdOtBccDD3uW4xMGq pxmagk7pzouyr Ixrmz7dfdp23hS00D58eO CwqEJRnDZL0LTEaIPVwdI enkr5hiI7gQe9+SWbtc7f zb8guxCr0IsPg PONfrzWfzBkrRXA5v7DnT i52W9SghWzxb5WsVsf7sa 05tSAaz7A3zFR8KRtqLQW bbT9oCIptLiU3 MLOsHiMulU97kHWgSIilV c7nyNdgjCebRX8cDZMroj fvMBShfH0iFCBomSEtsGq eRM4qFSKevszu h626WgVnJIG2LTMsgLRuQ 3SacE5aOcOvPXZcFGEsF1 BtgFYeAXbjX995LOylLaA 3MTUixyBrB0Fg LGDpzLksTmU3v3S7Tg5Dl 8SgscxxYDF8YMzpOCK4Hc XwAkPbQtZ3S7JdGcv2PGS iwPhnCU1cY7Is NBMysblgvjyyaOW2LYCkE GJnnZ30bIKaXDnfPl9mr8 D8o896TEQhEZVadP17Xr9 udDogMTBwdCBU aN2xvyqpy9uzybwlYjVsL HUhQSn8GPm9KUUexRitUy AuCKE0MlV6FWN3fURgnI4 lmKzzibgkmY6i Oyc+J37vhI2xTJR6SEG6i imbXKMmcqNiZA81WD52W2 RyPjwvdGFibGU+PGRpdiB qiKptLF2dZnZg f2bvg3RuDAceQ7FcOAQrD IozGtl1MRWiFDC4oRD6zS 6cBFDvNLcpt2W0bQN5U2Y hkjNpix0gx7yh WKJoQGrcT38ldOFsn6L7O CPhkHV2QGQdaGcvVxRetG 93Oyc+TAQusTavv8WiMmg ah4qth9lxmZw9 HeIxJRBttmEanQtjITI8e 2ScZc38D12qFPhgDTZjAV ZpPDCuANFauEkpof7ieG3 wIi8+PGNvbCB3 bKN3rE2qPSNuKiZ8RDgkA 096KrTilBPzHwfvd3psm8 ygvCs4AgBmNHXgskYvyZt jBKT7h7EeDl14 I86pSMguFOHbJFCyETCrA QNaxUikrm3luL6qAb1+PC 9gh6kzqc28bE67vXW+PHR uYTO3wAutHWrv QIZauL1cLFduEsO2JGUiK pEafV80zJPiUNdfHm4bgI ikeSwpXY3rVYOhdmmvx79 8VaPvo2lnVPRc vVYqTAsfVOT9E54gn9W4W BBhTVBoUCR4lUB1xE5bxF lnbjogbGVmdDsgdmVydGl lZGktVCkmH393 IHRvcDsnPlBhdGllbnQgT xNeVSg3G7QlTwz5ZITooE awXO7lwBNtKGwwMg7sgAf phAztLL9bWERw ncgpn680QbFwb3maEHJsk JNfBOfkATV7K92ys4C4OG PjSDJzPKK7lRK0aC9mqIv nbjogbGVmdDsg hoEvdMppNGnvECarF089Z HRvcDsnPkJpcnRoIERhdG T4SB97YE30rOExs7B3tOE 6G0VeFUYirtbo rkherZG9VCDbRQHskO45X d9vkVmrRf4fUHQhUDF4XI QnsPNvD7YmiN6eJgKjZTN hGOYeQ8MxuVSb NKvyQ896XPgkQjK9OVAja tBvF5CsOIDbqHndUeN7g2 T0Gj7KN5X5MO60OI04fTO gg5K7sMF8M1Fz CAJldmqfyaisuAO0VWNzH OHbfQ33Ue9ruObgHe7zNK QwPVB6RWGzlABbO4MgkH6 yOiAjMDAwMDAw H5OqlQJbPQocG648LNdqZ oT2SPMbtmFgT8IfNEXgvG gsOcM7w9R4Gw6KZBy6CF5 6MP70zXBlw0T1 mEI7M3ZwDEMttjzirexcc NT8RFXkWAPpoH66Om7shO hrPe6zTSHrAPJ4BBYloKB pK1TgmI9uQxOu LKSpBGNoM5VvbKCjODqrV 469RHtxDvR9LOAclzEaF5 BpSJHoeDleJkP4x2M3Rn9 ECTVgKS56VZN4 eWN2AV44EN00F5WyPdwds GFibGU+PHRhYmxlIHdpZH RoPScxMDAlJyBzdHlsZT0 iGt6cAUXwNZAd uArmqDTaLuZlh3yyTCKkC KozFC4efJsaL0UxqTT4CD Coe5e9Qf08C62fY3WkeSV +BRAjnFM5sXG1 iK9eShQkHdC1OCldT732Y nPfzHEoDybov6gez0dilC f1WsD1MQAbwwNbaAuhBLV 6r8KuZo57Y32y IHdpZHRoPSIxNSUiIHZhb Uwwav3guG7cEo3+PGNvbC R7iXL3eJ3tCdJoThZ0PEv lR289LxWbaHQi Obxtq8ori1sxiJj8ClBoQ FZskmJllAeiILI6r1RkUu 58T0UegLckd3JtBic6dm3 0tUAhg0L3zXW4 W7YpYVWyskaubSKhlQzrY M6hACQuiikmQBEtdP4xZR JwV2p2WlZvBoF8BTkhP2E mqlY1FXUkaWPl WOsjLYE5O24uc8W0AIGxL YTnSXT5zZE5eS4mbCayqb ogbGVmdDsgdmVydGljYWw yURucL101HJUy sEhkFAErkU0fRDCjrDGey MjcSC4jNRJihrhlIowLIl RTRVksIENIRUxTRVkgUjw vdGQ+PHRkIHN0 kEarXGdaIKAhnO6xFHIkR 0t0CgRgTdF0PInoQ7GeXJ MdwimwGi43qN4nRwGwNhB 2QWxbZ1AytmA7 RVEqnOTjFVrwTUO4R44tw 5S0AQYwWLUvNZY7sLA5sW 1hbGlnbjogbGVmdDsgdmV ydGljYWwtYWxp X481CFRalDlmWtZdEnW3T vL0WHZ4O3DdNay1KMUjxJ tzXY0acJBhCBjeNm2qyAe csPktZC6zCSSx kwnkSAYmdP5sAPPmtJEon VxwDP7cNPWunkrtm013Yn VjIWA6GWDbzDUrH2FvuZ7 yOiAjMDAwMDAw A2JhbRHqYYpgY451YAfnF iA6RAYzdhYkB6KwCEFriW tcXcR5i6S4Hc7zFlHEAVZ yczwvdGQ+PHRk UAR2dYzuYJklNVMprI0mW VLvD8s5LcRlBkP3LZheZ0 DwDTBynpqmKa81nL1lDxK uXxR8QErwU9Ag auI2HMAcnEDlBKpuAYQ0G 44oa1I7TPTsTAOmXOG8iP A5wM6daLmvcfgwuUPooMk gdmVydGljYWwt FLkqK243AHRuvTqxDiLvo WFsZTwvdGQ+KDGiHXK3nK eyGTgaGSIfhL6rCKFuS8n 3YyUyBiD1BTlz E8ReDNRqihmmJx87xV3jO xJwAqO7PSnbB4HptdT0AT TtmEYhMHlmSDN0P21cb9H 2OZRmCOPzVYU3 uCG2wF7kkDxuuxkmxGWvv DsgdmVydGljYWwtYWxpZ2 54NRYyjRkdPyKdKOSnND9 jeTwvdGQ+PC90 kh90B1TjWtzqMln7UZLbV IC4jVE4hG3qAELxVYzsy5 V5dDH4W1NsabBwud4kv7v zMTScXAvkC73s bIIoi4E8KMEloOH1BQAxj XlsRbUzxA00Mlw+PGNvbG rcv7NxGawmz5ohj2xmpSy 9IjMwJSIgdmFs sPotMHM4u7LhJa75C62sW HdpZHRoPSIzMCUiIHZhbG wrlp0rmY6gRe6+PGNvbCB 5nFM8wQ3yHsOb BbE5ZZzmW727AvYkpKRyR nxze9tda8refSv5BlVtTB JgfhJeiCjqQGU5e7IfFe8 2P5TvgObrh2Rq Dap3gu28lLZbq3N2hGV5B 3BhZGRpbmctbGVmdDogMC 6mPHNrnugfKPPbgQ2mHVY aG6n5TnGdCjB0 TGbqP2JcffM9KBMchFPvS TRxfFBSmF4qjdwcr9nzrz leCoCuXUVfOGv3ZMu8KCX saWduOiBsZWZ0 IoN9YWF3nNMpoB5iuDnkf kcxcK1eNyq+CEs3i9dmkU PwNQ3dnTD3HD99CB30wJN ic7A6nDY8I4Zt FGFkiopqjoziyZS1CIIaD VXpaR89Ch3seVgwDn5fUW FzXIP2XMEgbYIyM7OhoD8 yOiAjMDAwMDAw K0HemBXiNTfzS763MXdzQ yY3KDXoyrUjS5SvKZQouU pjYmK8r2C3Oi0GKX07UU6 7KI25oPRns6Q9 yYB6M7QxXRRipdpdahbcn UN8XNHcSAWgxS30Fu7yaC raDp0iCPEuGUL3OYTkyXD gR1UuhU4fMxFv HAGyLDIqY9DqbNBfSNhiN 873URhzRnE0VPXzpiSaZ0 AtUCSomHabCoL9o2U3Do4 TWj21TV68AS53 nWBnx0V9sQN9Q2LtVQLdv jtisselwTL8RFIuAIXllI 89Dc3aiQqqRh0dESWmHJI 2GOQqdGGlM9Av pR2rUdCsUFDhPBAbX9Bne KCmLUvgS759MIthZlI5DQ XjseFkN1JaAPZqeHrjKsH 2e3H1Cn5PDHix kyx8W1RmBonyeOF+PC90Y NLvBL97uNYifFTdl6lrcS k8YpBwGOWlCMS3bLngIVf kb8SeRPSvN30q bGFw (more content not included)... Normal [facility] Path. Reviewon 12-11-2021 Path Review Microcytic and hypochromic anemia. Clinical correlation and iron studies are recommended to determine etiology as clinically indicated. Invalid Interpretation Code [facility] Comment on above: Order Comment: Order Added by Discern Expert. Performed By: #### 2 [id number], 00063882, 84648799, 6181453, 83524813, 42873906, 5145187 #### [facility] [address] [place] [address] Auto Diffon 12-10-2021 Basophils/100 WBC (Bld) 0.2 % Normal 0.0-2.0 [facility] Comment on above: Order Comment: Order Added by Discern Expert. Performed By: #### 2 536564, 13728500, 53023341, 6897126, 19016413, 72795909, 8866705 #### [facility] [address] [place] [address] Basophils/Leukocytes Auto (Bld) [Pure # fraction] 0.0 E9/L Normal 0.0-0.2 [facility] Comment on above: Order Comment: Order Added by Discern Expert. Performed By: #### 2 444225, 97034621, 21459803, 6057022, 90709998, 48971371, 7196183 #### [facility] [address] [place] [address] Eosinophils/100 WBC (Bld) 1.3 % Normal 0.0-8.0 [facility] Comment on above: Order Comment: Order Added by Discern Expert. Performed By: #### 2 738012, 08367318, 41048826, 9780147, 36042640, 40063276, 1862609 #### [facility] [address] [place] [address] Eosinophils/Leukocyte s Auto (Bld) [Pure # fraction] 0.1 E9/L Normal 0.0-0.5 [facility] Comment on above: Order Comment: Order Added by Discern Expert. Performed By: #### 2 584392, 33479443, 50694624, 8050745, 47616882, 04537707, 6112464 #### [facility] [address] [place] [address] Lymphocytes/100 WBC (Bld) 30.3 % Normal 14.0-50.0 [facility] Comment on above: Order Comment: Order Added by Discern Expert. Performed By: #### 2 913613, 18224660, 59535876, 8082775, 14385747, 92037055, 6567802 #### [facility] [address] [place] [address] Lymphocytes/Leukocyte s Auto (Bld) [Pure # fraction] 2.1 E9/L Normal 1.0-4.0 [facility] Comment on above: Order Comment: Order Added by Discern Expert. Performed By: #### 2 215341, 16402659, 48171089, 1808598, 32014961, 78183236, 6931384 #### [facility] [address] [place] [address] Monocytes/100 WBC (Bld) 6.2 % Normal 4.0-14.0 [facility] Comment on above: Order Comment: Order Added by Discern Expert. Performed By: #### 2 964495, 35857791, 70598549, 9507414, 46936302, 54436049, 2530416 #### [facility] [address] [place] [address] Monocytes/Leukocytes Auto (Bld) [Pure # fraction] 0.4 E9/L Normal 0.2-1.0 [facility] Comment on above: Order Comment: Order Added by Discern Expert. Performed By: #### 2 826742, 66012796, 32016030, 9923023, 58709943, 36845419, 4158673 #### [facility] [address] [place] [address] Neutrophils/100 WBC (Bld) 62.0 % Normal 36.0-75.0 [facility] Comment on above: Order Comment: Order Added by Discern Expert. Performed By: #### 2 765107, 39179445, 08961259, 7305100, 45386368, 95050264, 3931050 #### [facility] [address] [place] [address] Neutrophils/Leukocyte s Auto (Bld) [Pure # fraction] 4.3 E9/L Normal 2.0-7.5 [facility] Comment on above: Order Comment: Order Added by Discern Expert. Performed By: #### 2 850295, 16901465, 06801502, 1247430, 67167212, 88573596, 4310471 #### [facility] [address] [place] [address] [facility] 12-10-2021 Creatinine [Mass/Vol] 1.0 mg/dL Normal 0.5-1.3 [facility] Comment on above: Performed By: #### 2 637472, 22400899, 50890138, 9588250, 07197001, 75673278, 1038851 #### [facility] [address] [place] [address] Urea nitrogen [Mass/Vol] 17 mg/dL Normal 5-21 [facility] Comment on above: Performed By: #### 2 710789, 03145506, 75348727, 3638224, 05251956, 46284993, 1771895 #### [facility] [address] [place] [address] Urea nitrogen/Creatinine [Mass ratio] 17 No Units Normal 10-20 [facility] Comment on above: Performed By: #### 2 067974, 60866938, 03591395, 9298726, 43608263, 31755330, 3952246 #### [facility] [address] [place] [address] Anion gap [Moles/Vol] 13 mmol/L Normal 6-16 [facility] Comment on above: Performed By: #### 2 991418, 29340680, 21954568, 8356264, 57212028, 91467229, 9599331 #### [facility] [address] [place] [address] Calcium [Mass/Vol] 9.2 mg/dL Normal 8.9-11.1 [facility] Comment on above: Performed By: #### 2 519850, 25043266, 75273869, 2446224, 32986617, 90819238, 0892110 #### [facility] [address] [place] [address] Chloride [Moles/Vol] 106 mmol/L Normal 101-111 [facility] Comment on above: Performed By: #### 2 299832, 94566459, 51745823, 8151344, 40234751, 62687319, 5794224 #### [facility] [address] [place] [address] CO2 [Moles/Vol] 22 mmol/L Normal 21-31 [facility] Comment on above: Performed By: #### 2 082801, 38266513, 41488929, 1369063, 69144377, 27703199, 3510697 #### [facility] [address] [place] [address] Glucose [Mass/Vol] 96 mg/dL Normal 55-199 [facility] Comment on above: Result Comment: If t his glucose result represents a fasting glucose, interpretation should refer to the following reference range: 55-99 mg/dL Performed By: #### 2 439680, 40161956, 22843672, 6619896, 71524520, 77960596, 3990052 #### [facility] [address] [place] [address] Potassium [Moles/Vol] 4.2 mmol/L Normal 3.5-5.3 [facility] Comment on above: Performed By: #### 2 842023, 61827963, 23598892, 3939758, 93061781, 40276163, 1962168 #### [facility] [address] [place] [address] Sodium [Moles/Vol] 137 mmol/L Normal 135-145 [facility] Comment on above: Performed By: #### 2 617804, 97909070, 46432295, 8385567, 95611315, 89684397, 3794016 #### [facility] [address] [place] [address] CBC w/ Auto Diffon Erythrocyte distribution width (RBC) [Ratio] 15.4 % High 10.9-14.2 [facility] Comment on above: Performed By: #### 2 165985, 14427930, 20480852, 5046466, 71895894, 01958367, 0749843 #### [facility] [address] [place] [address] Hematocrit (Bld) [Volume fraction] 34.9 % Normal 34.0-46.0 [facility] Comment on above: Performed By: #### 2 573226, 87525404, 40747075, 2686192, 93613649, 63802943, 4024603 #### [facility] [address] [place] [address] Hemoglobin (Bld) [Mass/Vol] 11.0 g/dL Low 12.0-16.0 [facility] Comment on above: Performed By: #### 2 355259, 93247817, 23387033, 6261220, 14556041, 15813152, 9952623 #### [facility] [address] [place] [address] MCH (RBC) [Entitic mass] 17.7 pg Low 27.0-34.0 [facility] Comment on above: Performed By: #### 2 879085, 76703481, 09133876, 3406702, 68378638, 92192977, 7035031 #### [facility] [address] [place] [address] MCHC (RBC) [Mass/Vol] 31.6 g/dL Normal 31.4-36.0 [facility] Comment on above: Performed By: #### 2 351393, 86886613, 48857627, 8324179, 64092103, 23330225, 9759803 #### [facility] [address] [place] [address] MCV (RBC) [Entitic vol] 56.1 fL Low 80.0-100.0 [facility] Comment on above: Performed By: #### 2 015454, 89139448, 15818681, 0170311, 22533473, 98202535, 2527425 #### [facility] [address] [place] [address] Platelet mean volume (Bld) [Entitic vol] 8.9 fL Normal 6.4-10.8 [facility] Comment on above: Performed By: #### 2 914120, 16243610, 98974795, 1763721, 65932206, 20742329, 8871761 #### [facility] [address] [place] [address] Platelets (Bld) [#/Vol] 281.0 E9/L Normal 150.0-500.0 [facility] Comment on above: Performed By: #### 2 190880, 07940194, 74474477, 0253178, 07272522, 60342862, 0036920 #### [facility] [address] [place] [address] RBC (Bld) [#/Vol] 6.2 E12/L High 4.3-5.9 [facility] Comment on above: Performed By: #### 2 543751, 21423611, 78827944, 7697040, 56605334, 82522366, 9197564 #### [facility] [address] [place] [address] WBC corrected for nucl RBC Auto (Bld) [#/Vol] 6.9 E9/L Normal 4.0-11.0 [facility] Comment on above: Performed By: #### 2 917496, 83625841, 03241624, 9149463, 11397800, 76601688, 7554770 #### [facility] [address] [place] [address] CHEMISTRYOrdered By: SYSTEM SYSTEM on 12-10-2021 Anion gap [Moles/Vol] 13 mmol/L Normal 6 - 16 mEq/L [facility] Calcium [Mass/Vol] 9.2 mg/dL Normal 8.9 - 11. 1 mg/dL [facility] Chloride [Moles/Vol] 106 mmol/L Normal 101 - 1 11 mmol/L [facility] CO2 [Moles/Vol] 22 mmol/L Normal 21 - 31 mmol/L [facility] Creatinine [Mass/Vol] 1.0 mg/dL Normal 0.5 - 1.3 mg/dL [facility] Remisol GFR/1.73 sq M.predicted among blacks MDRD (S/P/Bld) [Vol rate/Area] mL/min/1.73 m2 Normal >=59mL/min/1 .73 m2 [facility] S GFR/1.73 sq M.predicted among non-blacks MDRD (S/P/Bld) [Vol rate/Area] mL/min/1.73 m2 Normal >=59mL/min/1 .73 m2 [facility] Chem S Glucose [Mass/Vol] 96 mg/dL Normal 55 - 199 mg/dL [facility] Remisol Potassium [Moles/Vol] 4.2 mmol/L Normal 3.5 - 5.3 mmol/L [facility] Remisol Sodium [Moles/Vol] 137 mmol/L Normal 135 - 145 mmol/L [facility] Remisol Troponin I.cardiac [Mass/Vol] pg/mL Low 10.10 - 27.10 pg/mL [facility] Remisol Urea nitrogen [Mass/Vol] 17 mg/dL Normal 5 - 21 mg/dL [facility] Remisol Urea nitrogen/Creatinine [Mass ratio] 17 mg/mg Normal 10 - 20 [facility] Remisol Consent for Treatmenton 11-24 Consent for Treatment [id number]:127 Normal [facility] Discharge Instructionson Discharge Instructions [id number]:127 Normal [facility] ED Clinical Summaryon 2021 ED Clinical Summary [place] [id number] ED Clinical Summary Person Information Name: TORIE JOHNSTON [facility] Age: 31 Years : 1990 Sex: Female Language: Telugu PCP: YAMILE GARCIA CNP Marital Status: Visit Id: Visit Reason: Dizziness; Nausea; Leg pain-swelling; DIZZY/ NAUSEA / LEGS ARE THROBBING Speciality: Acuity: 3 Enc Type: Emergency Med Service: Emergency Arrival: 12/09/2021 22:22:45 Discharge: 12/10/2021 03:49:29 LOS: 000 05:27 Checkin: 12/09/2021 22:22:45 Checkout: 12/10/2021 03:49:29 Dispo Type: Home (Routine DC) EVENTS: Event Name Event Status Request Date/Time Start Date/Time Complete Date/Time Arrive Complete 12/09/2021 22:22:45 12/09/2021 22:22:45 12/09/2021 22:22:45 Document Home Meds Request 12/09/2021 22:22:45 Triage Complete 12/09/2021 22:22:45 12/09/2021 22:48:19 12/09/2021 22:48:19 EKG Complete 12/09/2021 22:47:39 12/10/2021 00:24:01 Bed Assign Complete 12/09/2021 23:45:10 12/09/2021 23:45:10 12/09/2021 23:45:10 Dr Exam Complete 12/09/2021 23:45:10 12/09/2021 23:52:39 12/09/2021 23:52:39 RN Exam Complete 12/09/2021 23:45:10 12/10/2021 01:05:53 12/10/2021 01:05:53 Pending Labs Complete 12/09/2021 23:48:43 12/10/2021 01:01:44 Lab Complete 12/09/2021 23:48:43 12/10/2021 01:01:44 Urine Collect Complete 12/09/2021 23:48:43 12/10/2021 01:01:44 Registration Complete 12/09/2021 23:52:39 12/10/2021 00:48:24 12/10/2021 00:48:24 Pending Labs Complete 12/10/2021 00:32:21 12/10/2021 00:32:21 12/10/2021 00:46:09 Lab Complete 12/10/2021 00:32:21 12/10/2021 00:32:21 12/10/2021 00:46:09 Pending Labs Cancel 12/10/2021 00:40:42 12/10/2021 01:01:27 Meds Admin Complete 12/10/2021 00:40:42 12/10/2021 01:24:07 US Complete 12/10/2021 00:40:42 12/10/2021 01:21:00 12/10/2021 02:03:01 Reg Complete Request 12/10/2021 00:48:24 Reg Bed Request Complete 12/10/2021 00:48:24 12/10/2021 00:48:24 12/10/2021 00:48:24 Pending Labs Complete 12/10/2021 00:50:50 12/10/2021 00:50:50 12/10/2021 00:50:58 Lab Complete 12/10/2021 00:50:50 12/10/2021 00:50:50 12/10/2021 00:50:58 Pending Labs Complete 12/10/2021 00:50:50 12/10/2021 00:50:50 12/10/2021 00:53:26 Pending Labs Inlab 12/10/2021 00:53:26 12/10/2021 00:53:26 Pending Labs Complete 12/10/2021 01:01:52 12/10/2021 01:01:52 12/10/2021 01:23:45 Discharge Complete 12/10/2021 03:37:16 12/10/2021 03:49:35 12/10/2021 03:49:35 Transfer Complete 12/10/2021 03:49:35 12/10/2021 03:49:35 12/10/2021 03:49:35 ADDRESS: [address] [facility] [id number] [facility] DOC NOTES: MEDICAL INFORMATION: Prescriptions Given: New Medications Printed Prescriptions meclizine (meclizine 25 mg Tab) 1 Tablets By Mouth 3 times a day. Refills: 0. ondansetron (Zofran ODT 4 mg Tab-Dis) 1 Tablets By Mouth every 6 hours as needed Nausea/Vomiting. Refills: 0. Medications to Continue with No Changes Other Medications ferrous sulfate (ferrous sulfate 325 mg Tab) PATIENT EDUCATION INFORMATION: Instructions: Vertigo Follow up: With: Address: When: YAMILE GARCIA [address], [place] [phone] Business (1) In 3 days 12/13/2021 Comments: Return to the emergency room if your vertigo recurs or any new symptoms DIAGNOSIS: 1:Vertigo; 2:Leg pain Normal [facility] ED Note-Nursingon 12-10-2021 ED Note-Nursing pt given d/c instructions and educated on importance of follow up. pt educated on new medications. pt verbalized understanding of instructions and readiness for d/c. pt walked self ambulatory to waiting room in stable condition Normal [facility] ED Note-Physicianon 12-11-19 ED Note-Physician Basic Information Time Seen: Miguel Kamara M.D. 12/09/2021 23:52 Chief Complaint complains of feeling dizzy and nauseated today. bilateral thigh pain. denies fever. History of Present Illness The patient is 31-year-old female who presented to the emergency room with dizziness, nausea and vomiting. The the patient states that her dizziness started today. She states the dizziness is when she is ambulating. She states it feels like she is off the balance. They last for few seconds and they go away. The patient states she has vomited 3 times. She states she has been having some leg pain today and points to the calf and thighs. She states she has history of varicose vein stripping in the past. The patient denies any shortness of breath. She states she has chest pain all the time. The patient denies any fever. She denies any difficulty swallowing, denies any vision change. The patient denies any earache. Denies any ringing in her ears. The patient denies any other associated symptoms. Review of Systems Additional ROS info: Except as noted in the above Review of Systems and in the History of Present Illness all other systems have been reviewed and are negative or noncontributory. Physical Exam Vitals & Measurements T: 36.8 ?C(Oral) HR: 78(Monitored) RR: 18 BP: 125/78 SpO2: 99% HT: 160 cm HT: 160.0 cm WT: 101.9 kg WT: 101.9 kg BMI: 39.8 General: alert, no acute distress Skin: warm, dry Head: no trauma, normocephalic Neck: Trachea midline, no tenderness, supple Eye: normal conjunctiva, sclera clear, PERRL, EOMI, vision unchanged ENMT: Tympanic membrane clear bilateral, oral mucosa moist, no pharyngeal erythema or exudate Cardiovascular: regular rate and rhythm Respiratory: Lungs CTA, respirations non labored, breath sounds equal Gastrointestinal: soft, non distended, no tenderness, no guarding Extremities: no deformity, no trauma, there is tenderness on the calves bilaterally and left thigh. Neurological: Alert and oriented, CN II-XII intact, motor strength equal & normal bilaterally, sensation equal & normal bilaterally, speech normal, no focal neuro deficits, normal coordination Psychiatric: cooperative, affect appropriate for age, Medical Decision Making Patient presented with bilateral leg pain and dizziness. She describes the dizziness as being off the balance. The patient states that last for seconds and it goes away. She states that usually when she walks. She is neurologically intact. Blood work reviewed. EKG shows no acute ischemic changes. The patient was given IV fluid, Phenergan and meclizine. Her symptoms improved. Will discharge patient home follow-up with her primary care. We will give her prescription for Zofran and meclizine. She is instructed to return to the emergency room if her symptoms recur or any new symptoms. Assessment/Plan 1. Vertigo (R42: Dizziness and giddiness) 2. Leg pain (M79.606: Pain in leg, unspecified) Orders: meclizine, 25 mg = 1 tab(s), Oral, TID, # 20 tab(s), Refills(s) 0 meclizine, 25 mg = 2 tab(s), Tab, Oral, Once, Stop date 12/10/21 0:39:00 EDT, STAT, Start date 12/10/21 0:39:00 EDT, 12/10/21 0:39:00 EDT ondansetron, 4 mg = 1 tab(s), Oral, q6hr, PRN Nausea/Vomiting, # 12 tab(s), Refills(s) 0 promethazine, 12.5 mg = 0.5 mL, Injection, IV Push, Once, Stop date 12/10/21 0:39:00 EDT, STAT, Start date 12/10/21 0:39:00 EDT, 12/10/21 0:39:00 EDT Sodium Chloride 0.9% intravenous solution, 1,000 mL, Soln-IV, IV, Once, Stop date 12/10/21 0:39:00 EDT, STAT, Start date 12/10/21 0:39:00 EDT, mL/hr, Infuse over 61, minute(s) US LE Venous Duplex Bilateral Medications Administered Given meclizine 12.5 mg Tab, 25 mg, Oral [id number] [F], 1000 mL, IV Phenergan 25 mg/mL Injection, 12.5 mg, IV Push Disposition Plan Patient Discharge Condition Stable, improved Discharge Disposition Discharged home Discharge Prescription List Prescriptions meclizine 25 mg Tab, 25 mg= 1 tab(s), Oral, TID Zofran ODT 4 mg Tab-Dis, 4 mg= 1 tab(s), Oral, q6hr, PRN Follow-up With When Contact Information YAMILE GARCIA In 3 days 12/13/2021 EDT [address] [place] [phone] Business (1) Additional Instructions: Return to the emergency room if your vertigo recurs or any new symptoms Patient Education Vertigo Problem List/Past Medical History Ongoing No qualifying data Historical Medications Inpatient No active inpatient medications Home ferrous sulfate 325 mg Tab meclizine 25 mg Tab, 25 mg= 1 tab(s), Oral, TID Zofran ODT 4 mg Tab-Dis, 4 mg= 1 tab(s), Oral, q6hr, PRN Allergies No Known Allergies Social History Alcohol - Denies Alcohol Use, 12/10/2021 Substance Abuse - Denies Substance Abuse, 12/10/2021 Tobacco - Denies Tobacco Use, 12/10/2021 Lab Results WBC: 6.9 E9/L (12/10/21 00:31:00) RBC: 6.2 E12/L High (12/10/21 00:31:00) HGB: 11 gm/dL Low (12/10/21 00:31:00) Hct: (more content not included)... Normal [facility] Comment on above: Result Comment: Elec tronically Signed By: Asad Strong, Miguel Rey\.br\Date and Time Signed: 12/10/21 04:59 EDT ED Patient Education Noteon 12-10-2021 ED Patient Education Note ENT Vertigo Vertigo is the feeling that you or your surroundings are moving when they are not. This feeling can come and go at any time. Vertigo often goes away on its own. Vertigo can be dangerous if it occurs while you are doing something that could endanger you or others, such as driving or operating machinery. Your health care provider will do tests to determine the cause of your vertigo. Tests will also help your health care provider decide how best to treat your condition. Follow these instructions at home: Eating and drinking ? Drink enough fluid to keep your urine pale yellow. ? Do not drink alcohol. Activity ? Return to your normal activities as told by your health care provider. Ask your health care provider what activities are safe for you. ? In the morning, first sit up on the side of the bed. When you feel okay, stand slowly while you hold onto something until you know that your balance is fine. ? Move slowly. Avoid sudden body or head movements or certain positions, as told by your health care provider. ? If you have trouble walking or keeping your balance, try using a cane for stability. If you feel dizzy or unstable, sit down right away. ? Avoid doing any tasks that would cause danger to you or others if vertigo occurs. ? Avoid bending down if you feel dizzy. Place items in your home so that they are easy for you to reach without leaning over. ? Do not drive or use heavy machinery if you feel dizzy. General instructions ? Take vmom-ijj-qzamzrr and prescription medicines only as told by your health care provider. ? Keep all follow-up visits as told by your health care provider. This is important. Contact a health care provider if: ? Your medicines do not relieve your vertigo or they make it worse. ? You have a fever. ? Your condition gets worse or you develop new symptoms. ? Your family or friends notice any behavioral changes. ? Your nausea or vomiting gets worse. ? You have numbness or a prickling and tingling sensation in part of your body. Get help right away if you: ? Have difficulty moving or speaking. ? Are always dizzy. ? Faint. ? Develop severe headaches. ? Have weakness in your hands, arms, or legs. ? Have changes in your hearing or vision. ? Develop a stiff neck. ? Develop sensitivity to light. Summary ? Vertigo is the feeling that you or your surroundings are moving when they are not. ? Your health care provider will do tests to determine the cause of your vertigo. ? Follow instructions for home care. You may be told to avoid certain tasks, positions, or movements. ? Contact a health care provider if your medicines do not relieve your symptoms, or if you have a fever, nausea, vomiting, or changes in behavior. ? Get help right away if you have severe headaches or difficulty speaking, or you develop hearing or vision problems. This information is not intended to replace advice given to you by your health care provider. Make sure you discuss any questions you have with your health care provider. Document Released: 02/20/2006 Document Revised: 04/06/2019 Document Reviewed: 04/06/2019 Elsevier Patient Education ? 2019 [employer] Ceci Mckee [facility] ED Patient Summaryon 022 ED Patient Summary [place] [id number] Patient Discharge Instructions Person Information Name: TORIE JOHNSTON Age: 31 Years Arrival Date: 12/09/2021 22:22:45 Discharge Diagnosis: 1:Vertigo; 2:Leg pain Primary Care Physician: YAMILE GARCIA CNP Provider Information Primary Provider: Miguel Kamara M.D. Advanced Drop Board Worker:None The exam and treatment you received in the Emergency Department were for an urgent problem and are not intended as complete care. It is important that you follow up with a doctor, nurse practitioner, or physician?s aquatics assistant department head for ongoing care. If your symptoms become worse or you do not improve as expected and you are unable to reach your usual health care provider, you should return to the Emergency Department. We are available 24 hours a day. TORIE JOHNSTON has been given the following list of patient education materials, prescriptions and follow-up instructions: Follow-up Instructions: With: Address: When: YAMILE GARCIA [address], [place] [phone] Business (1) In 3 days 12/13/2021 Comments: Return to the emergency room if your vertigo recurs or any new symptoms In the event that this physician does not participate in your insurance network, please consult with your insurance company to find a nearby participating provider. Patient Education Materials: Vertigo A MESSAGE TO ALL PATIENTS REGARDING OPIOIDS PRESCRIPTION OPIOIDS: WHAT YOU NEED TO KNOW Prescription opioids can be used to help relieve lkezqkwq-oj-jfebmt pain and are often prescribed following a surgery or injury, or for certain health conditions. These medications can be an important part of the treatment but also come with serious risks. It is important to work with your healthcare provider to make sure you are getting the safest, most effective care. WHAT ARE THE RISKS AND SIDE EFFECTS OF OPIOID USE? Prescription opioids carry serious risks of addiction and overdose, especially with prolonged use. An opioid overdose, often marked by slowed breathing, can cause sudden . The use of prescription opioids can have a number of side effects as well, even when taken as directed: ? Tolerance?meaning you might need to take more of the medication for the same pain relief ? Physical dependence?meaning you have symptoms of withdrawal when a medication is stopped ? Increased sensitivity to pain ? Constipation ? Nausea, vomiting, and dry mouth ? Sleepiness and dizziness ? Confusion ? Depression ? Low levels of testosterone that can result in lower sex drive, energy, and strength ? Itching and sweating RISKS ARE GREATER WITH: ? History of drug misuse, substance use disorder, or overdose ? Mental health conditions (such as depression or anxiety) ? Sleep apnea ? Older age (65 years and older) ? Avoid alcohol while taking prescription opioids. Also, unless specifically advised by your health care provider, medications to avoid include: ? Benzodiazepines (such as Xanax or Valium) ? Muscle relaxants (such as Soma or Flexeril) ? Hypnotics (such as Ambien or Lunesta) ? Other prescription opioids KNOW YOUR OPTIONS Talk to your health care provider about ways to manage your pain that don?t involve prescription opioids. Some of these options may actually work better and have fewer risks and side effects. Options may include: ? Pain relievers such as acetaminophen, ibuprofen, and naproxen ? Some medication that are also used for depression or seizures ? Physical therapy and exercise ? Cognitive behavioral therapy, a psychological, goal-directed approach, in which patients learn how to modify physical, behavioral, and emotional triggers of pain and stress. IF YOU ARE PRESCRIBED OPIOIDS FOR PAIN: ? Never take opioids in greater amounts or more often than prescribed. ? Follow up with your primary health care provider. o Work together to create a plan on how to manage your pain. o Talk about ways to help manage your pain that don?t involve prescription opioids. o Talk about any and all concerns and side effects. ? Help prevent misuse and abuse o Never sell or share prescription opioids. o Never use another person?s prescription opioids. ? Store prescription opioids in a secure place and out of reach of others (this may include visitors, children, friends, and family). ? Safely dispose of unused prescription opioids: Find your community drug take-back program or your pharmacy mail-back program, or flush them down the toilet, following guidance from the Food and Drug Administration (www.fda.gov/Drugs/Re sourcesForYou). ? Visit www.cdc.gov/drugoverd ose to learn about the risks of opioids abuse and overdose. ? If you believe you may be struggling with addiction, tell your health after school caregiver and ask f (more content not included)... Normal [facility] HEMATOLOGYOrdered By: Serg Goodson on 12-10-2021 Anisocytosis Ql (Bld) Present (12/10/21 12:31 AM) Normal [facility] HemeManSS Elliptocytes LM Ql (Bld) Present (12/10/21 12:31 AM) Normal [facility] Erythrocyte distribution width (RBC) [Ratio] 15.4 % High 10.9 - 14.2 % [facility] Hematocrit (Bld) [Volume fraction] 34.9 % Normal 34.0 - 46.0 % [facility] Hemoglobin (Bld) [Mass/Vol] 11.0 g/dL Low 12.0 - 16.0 gm/dL [facility] Hypochromia Auto Ql (Bld) Present (12/10/21 12:31 AM) Normal [facility] MCH (RBC) [Entitic mass] 17.7 pg Low 27.0 - 34.0 pg [facility] MCHC (RBC) [Mass/Vol] 31.6 g/dL Normal 31.4 - 36.0 gm/dL [facility] MCV (RBC) [Entitic vol] 56.1 fL Low 80.0 - 100.0 fL [facility] Morphology Rey (Bld) [Interp] See Morphology (12/10/21 12:31 AM) Normal [facility] Platelet mean volume (Bld) [Entitic vol] 8.9 fL Normal 6.4 - 10.8 fL [facility] Platelets (Bld) [#/Vol] 281.0 E9/L Normal 150.0 - 500.0 E9/L [facility] Poikilocytosis Auto Ql (Bld) Present (12/10/21 12:31 AM) Normal [facility] Polychromasia LM Ql (Bld) Present (12/10/21 12:31 AM) Normal [facility] RBC (Bld) [#/Vol] 6.2 E12/L High 4.3 - 5.9 E12/L [facility] Teardrop Cell Present (12/10/21 12:31 AM) Normal [facility] WBC corrected for nucl RBC Auto (Bld) [#/Vol] 6.9 E9/L Normal 4.0 - 11.0 E9/L [facility] HEMATOLOGYOrdered By: SYSTEM SYSTEM on 12-10-2021 Basophils/100 WBC (Bld) 0.2 % Normal 0.0 - 2.0 % [facility] Basophils/Leukocytes Auto (Bld) [Pure # fraction] 0.0 E9/L Normal 0.0 - 0.2 E9/L [facility] Eosinophils/100 WBC (Bld) 1.3 % Normal 0.0 - 8.0 % [facility] Eosinophils/Leukocyte s Auto (Bld) [Pure # fraction] 0.1 E9/L Normal 0.0 - 0.5 E9/L [facility] Lymphocytes/100 WBC (Bld) 30.3 % Normal 14.0 - 50.0 % [facility] Lymphocytes/Leukocyte s Auto (Bld) [Pure # fraction] 2.1 E9/L Normal 1.0 - 4.0 E9/L [facility] Monocytes/100 WBC (Bld) 6.2 % Normal 4.0 - 14.0 % [facility] Monocytes/Leukocytes Auto (Bld) [Pure # fraction] 0.4 E9/L Normal 0.2 - 1.0 E9/L [facility] Neutrophils/100 WBC (Bld) 62.0 % Normal 36.0 - 75.0 % [facility] Neutrophils/Leukocyte s Auto (Bld) [Pure # fraction] 4.3 E9/L Normal 2.0 - 7.5 E9/L [facility] Morphon 12-10-2021 Anisocytosis Ql (Bld) Present Normal [facility] Comment on above: Order Comment: Order Added by Discern Expert. Performed By: #### 2 [id number], [id number], [id number] #### [facility] [address] [place] [address] Elliptocytes LM Ql (Bld) Present Normal [facility] Comment on above: Order Comment: Order Added by Discern Expert. Performed By: #### 2 [id number], [id number], [id number], [id number], [id number] #### [facility] [address] [place] [address] Hypochromia Auto Ql (Bld) Present Normal [facility] Comment on above: Order Comment: Order Added by Discern Expert. Performed By: #### 2 [id number], [id number], [id number], [id number], [id number], [id number] #### [facility] [address] [place] [address] Morphology Rey (Bld) [Interp] See Morphology Normal [facility] Comment on above: Order Comment: Order Added by Discern Expert. Performed By: #### 2 [id number], [id number], [id number], [id number], [id number], [id number], [id number] #### [facility] [address] [place] [address] Poikilocytosis Auto Ql (Bld) Present Normal [facility] Comment on above: Order Comment: Order Added by Discern Expert. Performed By: #### 2 [id number], [id number], [id number], [id number], [id number], [id number], [id number] #### [facility] [address] [place] [address] Polychromasia LM Ql (Bld) Present Normal [facility] Comment on above: Order Comment: Order Added by Discern Expert. Performed By: #### 2 [id number], [id number], [id number], [id number], [id number], [id number], [id number] #### [facility] [address] [place] [address] Teardrop Cell Present Normal [facility] Comment on above: Order Comment: Order Added by Discern Expert. Performed By: #### 2 [id number], [id number], [id number], [id number], [id number], [id number], [id number] #### [facility] [address] [place] [address] SEROLOGYOrdered By: Serg hope on 12-10-2021 HCG.beta subunit (U) [Moles/Vol] Negative Normal [facility] Man Sero Troponin 0 Hr.on 12-10-2021 Troponin I.cardiac [Mass/Vol] ng/mL Low 10.10-27.10 [facility] Comment on above: Result Comment: The 95% CI (Confidence Interval) PPV (Positive Predictive Value) for myocardial infarction in females is 38 pg/mL, in males 51 pg/mL. The results should be used in conjunction with clinical conditions of myocardial infarction. (Access High Sensitivity Troponin I Instructions For Use, [employer], December 2017) Performed By: #### 2 [id number], [id number], [id number], [id number], [id number], [id number], [id number] #### [facility] [address] [place] [address] U BetaHcg Qualon 12-10-2021 HCG.beta subunit (U) [Moles/Vol] Negative Normal [facility] Comment on above: Performed By: #### 2 [id number], [id number] ####[facility] [id number] [place] [address] UA With Cult Reflexon 2021 Bilirubin Ql (U) Negative Normal Negative [facility] Comment on above: Performed By: #### 2 [id number], [id number] #### [facility] [address] [place] [address] Clarity (U) CLEAR Normal Clear [facility] Comment on above: Performed By: #### 2 [id number], [id number] #### [facility] [address] [place] [address] Color (U) YELLOW Normal Yellow [facility] Comment on above: Performed By: #### 2 [id number], [id number] #### [facility] [address] [place] [address] Epithelial cells.squamous LM.HPF (Urine sed) [#/Area] 0-2 Normal 0-2 [facility] Comment on above: Performed By: #### 2 [id number], [id number] #### [facility] [address] [place] [address] Glucose Test strip (U) [Mass/Vol] Negative Normal Negative [facility] Comment on above: Performed By: #### 2 [id number], [id number] #### [facility] [facility] [address] [place] [address] Hemoglobin Ql (U) Negative Normal Negative [facility] Comment on above: Performed By: #### 2 [id number], [id number] #### [facility] [address] [place] [address] Ketones (U) [Mass/Vol] Negative Normal Negative [facility] Comment on above: Performed By: #### 2 [id number], [id number] #### [facility] [address] [place] [address] Roland.plasma/Lithiu m.RBC (Bld) [Mass ratio] 0-3 Normal 0-3 [facility] Comment on above: Performed By: #### 2 [id number], [id number] #### [facility] [address] [place] [address] Nitrite Ql (U) Negative Normal Negative [facility] Comment on above: Performed By: #### 2 [id number], [id number] #### [facility] [address] [place] [address] pH (U) 6.0 [pH] Invalid Interpretation Code 5.0-9.0 [facility] Comment on above: Performed By: #### 2 [id number], [id number] #### [facility] [address] [place] [address] Protein (U) [Mass/Vol] Negative Normal Negative [facility] Comment on above: Performed By: #### 2 [id number], [id number] #### [facility] [address] [place] [address] Specific gravity (U) [Rel density] 1.025 Invalid Interpretation Code 1.005-1.030 [facility] Comment on above: Performed By: #### 2 [id number], [id number] #### [facility] [address] [place] [address] Type of Urine collection method Clean Catch Normal [facility] Comment on above: Performed By: #### 2 [id number], [id number] #### [facility] [address] [place] [address] Urobilinogen Qn (U) 0.2 {Isamar'U}/dL Normal 0.0-1.0 [facility] Comment on above: Performed By: #### 2 [id number], [id number] #### [facility] [address] [place] [address] WBC Auto Ql (U) Negative Normal Negative [facility] Comment on above: Performed By: #### 2 [id number], [id number] #### [facility] [address] [place] [address] WBC LM.HPF (Urine sed) [#/Area] 0-5 Normal 0-5 [facility] Comment on above: Performed By: #### 2 [id number], [id number] #### [facility] [address] [place] [address] URINALYSISOrdered By: Serg Goodson on 12-10-2021 Bilirubin Ql (U) Negative (12/10/21 12:32 AM) Normal Negative [facility] UA Auto SS Clarity (U) Clear (12/10/21 12:32 AM) Normal Clear [facility] UA Auto SS Color (U) Yellow (12/10/21 12:32 AM) Normal Yellow [facility] UA Auto SS Epithelial cells.squamous LM.HPF (Urine sed) [#/Area] 0-2 /HPF Normal 0-2/HPF [facility] UA Aut o SS Glucose Test strip (U) [Mass/Vol] Negative (12/10/21 12:32 AM) Normal Negative [facility] UA Auto SS Hemoglobin Ql (U) Negative (12/10/21 12:32 AM) Normal Negative [facility] UA Auto SS Ketones (U) [Mass/Vol] Negative (12/10/21 12:32 AM) Normal Negative [facility] UA Auto SS Roland.plasma/Lithiu m.RBC (Bld) [Mass ratio] 0-3 /HPF Normal 0-3/HPF [facility] UA Auto SS Nitrite Ql (U) Negative (12/10/21 12:32 AM) Normal Negative [facility] UA Auto SS pH (U) 6.0 *NA* (12/10/21 12:32 AM) Invalid Interpretation Code 5.0 - 9.0 [facility] UA Auto SS Protein (U) [Mass/Vol] Negative (12/10/21 12:32 AM) Normal Negative [facility] UA Auto SS Specific gravity (U) [Rel density] 1.025 *NA* (12/10/21 12:32 AM) Invalid Interpretation Code 1.005 - 1.030 [facility] UA Auto SS UA Spec Desc Clean Catch (12/10/21 12:32 AM) Normal [facility] UA Auto SS Urobilinogen Qn (U) 0.9552776 {Isamar'U}/dL Normal 0.0 - 1.0 EU/dL [facility] UA Auto SS WBC Auto Ql (U) Negative (12/10/21 12:32 AM) Normal Negative [facility] UA Auto SS WBC LM.HPF (Urine sed) [#/Area] 0-5 /HPF Normal 0-5/HPF [facility] UA Auto SS US LE Venous Duplex Bilatera desire 12-10-2021 US LE Venous Duplex Bilateral Exam Date/Time: 12/10/2021 02:03 EDT Reason for Exam: Leg pain Report IMPRESSION: NO EVIDENCE OF VENOUS THROMBOSIS INVOLVING VISUALIZED DEEP VEINS OF BOTH LEGS. CLINICAL HISTORY: Leg pain. History of bilateral greater saphenous vein ablations COMMENT: The common femoral veins, femoral veins, deep femoral veins, and popliteal veins bilaterally demonstrate spontaneous phasic venous flow with augmentation, non-pulsatility, and compressibility every 2 cm. The posterior tibial and peroneal deep calf veins bilaterally compress. There is flow in the right and left greater saphenous veins at the saphenofemoral junctions. There is lack of flow and compressibility of the greater saphenous veins below the upper thighs, consistent with previous ablations. FINAL REPORT Dictated: 12/10/2021 2:09 pm Orion Donahue M.D. Signed (Electronic Signature): 12/10/2021 2:09 pm Signed by: Orion Donahue M.D. Transcribed by: FABI Technologist: MARKO Normal [facility] eGFRon 12-10-2021 GFR/1.73 sq M.predicted among blacks MDRD (S/P/Bld) [Vol rate/Area] mL/min/{1.73_m2} Normal >=59 [facility] Comment on above: Order Comment: Order added by Discern Expert. Result Comment: eGFR is race adjusted. AA=. Performed By: #### 2 [id number], [id number], [id number], [id number], [id number] #### [facility] [address] [place] [address] GFR/1.73 sq M.predicted among non-blacks MDRD (S/P/Bld) [Vol rate/Area] mL/min/{1.73_m2} Normal >=59 [facility] Comment on above: Order Comment: Order added by Discern Expert. Result Comment: [employer] sonu kidney disease could be indicated at eGFR's of less than 60 mL/min/1.73m2. Kidney failure is indicated at less than 15 mL/min/1.73m2. Performed By: #### 2 [id number], [id number], [id number], [id number], [id number], [id number], [id number] #### [facility] [address] [place] [address] VC CONSULT FOLLOWUPon 2021 VC CONSULT FOLLOWUP Patient: TORIE JOHNSTON Exam Date: 11/16/2021 : 1990 Gender:F Ordering : DR SADI JEWELL M.D. Admission #: [id number] Family : Order #: [id number] CLICK HERE TO VIEW EXAM RADIOLOGY REPORT PROCEDURE: VEIN CENTER CONSULTATION FOLLOWUP VEIN CENTER - OFFICE VISIT FOLLOW UP COMPARISON: VC CONSULT FOLLOWUP, 10/19/2021. PROGRESS NOTES: The patient reports that improvement in leg symptoms. There has been interval reduction in varicosities. The patient has followed our recommendations to walk 20-30 minutes once or twice per day since the procedure. Physical exam demonstrates decrease in varicosities of the left leg. Persistent varicosities are identified along the legs bilaterally. Review of the ultrasound performed the same day demonstrates occlusive thrombus extending throughout the treated vein, see separate report, consistent with a successful ablation. No thrombus extending into or beyond the saphenofemoral junction. The patient expressed a desire to proceed with treatment of right anterior accessory saphenous vein and bilateral incompetent branch saphenous varicosities. The patient was informed that treatment was a process and would require several procedures/sessions. IMPRESSION: 1. Successful ablation of the left great saphenous vein 2. 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 Nurse notes, history and physical were reviewed and confirmed, see attached forms. The nurse was present throughout the physical exam and consultation Dictated by: Camilo Wood M.D. on 11/16/2021 at 11:58 Approved by: Camilo Wood M.D. on 11/16/2021 at 12:01 Normal [facility] EXT VENOUS LT LIMITEDon 0 11-16-2021 VC EXT VENOUS LT LIMITED Patient: TORIE JOHNSTON Exam Date: 11/16/2021 : 1990 Gender:F Ordering : DR SADI JEWELL M.D. Admission #: [id number] Family : Order #: [id number] CLICK HERE TO VIEW EXAM RADIOLOGY REPORT PROCEDURE: VEIN CENTER EXTREMITY VENOUS LEFT LIMITED COMPARISON: None. INDICATIONS: Phlebitis and thrombophlebitis of superficial veins of left lower extremity I80.02 TECHNIQUE: Lower extremity franco scale and Duplex Doppler evaluation of the deep venous system from the inguinal ligament through the calf veins. FINDINGS: REGION: Left lower extremity. THROMBI: Negative for DVT. Heat induced thrombus seen starting 2.5cm from SFJ. The heat induced thrombus extends from groin to proximal calf. At mid calf/below area of insertion the GSV is patent and compressible. COMPRESSIBILITY: Non-compressible segments. FLOW: Areas of no flow. OTHER: CONCLUSION: 1. Successful post ablation occlusion of the left great saphenous vein. Dictated by: Camilo Wood M.D. on 11/16/2021 at 11:57 Approved by: Camilo Wood M.D. on 11/16/2021 at 11:58 Normal [facility] ENDOVENOUS ABL 1ST V LTon 11-08-2021 VC ENDOVENOUS ABL 1ST V LT Patient: TORIE JOHNSTON Exam Date: 11/08/2021 : 1990 Gender:F Ordering : DR SADI JEWELL M.D. Admission #: [id number] Family : Order #: [id number] CLICK HERE TO VIEW EXAM RADIOLOGY REPORT PROCEDURE: VEIN CENTER ENDOVENOUS ABLATION FIRST VEIN LEFT COMPARISON: None. INDICATIONS: Pain co-occurrent and due to varicose veins of bilateral legs I83.813 OPERATIVE REPORT: The risks and benefits of the procedure had been previously discussed, and were rediscussed at length. Informed written consent was obtained by and Ketan mckenzie. Time out procedure was performed. The left lower extremity was prepared and draped in the usual sterile fashion to allow knee flexion in the sterile field. Duplex ultrasound probe was draped in a sterile cover, sterile transmission gel was used. Venous mapping was performed with the areas of dilation and large tributaries marked. The total length was 38 cm from the entry 10 cm below the knee to 3 cm below the saphenofemoral junction. The diameter of the greater saphenous vein ranged from 8 mm. A 30 gauge needle and 1% buffered lidocaine was used to anesthetize the entry site. A 4 mm incision was made with a scalpel and the saphenous vein was entered percutaneously under direct ultrasound guidance with a micropuncture set, a single stick was successful in gaining access. A micro-guide wire was inserted and the needle removed. A micro-set including a dilator was inserted over the microwire and the needle and dilator were removed. A 0.018 guide wire was inserted through the micro-set and threaded through the saphenous vein to the saphenofemoral junction. The dilator was removed and an introducer sheath was inserted over the wire until the end of the sheath entered the saphenofemoral junction. The dilator and wire were removed and the 600 micron fiber was introduced and placed and positioned so that it extended beyond the sheath and was 3 cm peripheral to the saphenofemoral femoral junction. Final position of the fiber was determined by ultrasound guidance and duplex imaging. Tumescent anesthetic was delivered by ultrasound guidance. Two hundred twenty-five cc of fluid was delivered along the entire course of the saphenous vein. The solution consisted of 500 cc of normal saline with 20mL of 1% lidocaine and 10 mL of sodium bicarbonate. A final positioning check was made. The energy source was turned on by means of the foot pedal and the fiber and sheath were withdrawn. The total number of Joules delivered was 1870. The laser was active for 234 seconds under continuous pulse, average laser use of 8 J. Laser start time 8:44 a.m. November 08, 2021. Laser stop time 8:49 a.m. November 08, 2021. A duplex ultrasound revealed compressibility and flow at the saphenofemoral junction immediately after the procedure. Hemostasis at the access site was achieved. The skin incision of the saphenous vein was closed with a 4 x 4. A compression stocking was applied. Postop instructions were given. A follow up appointment was recommended and scheduled. The patient tolerated the procedure well and was discharged in good condition. CONCLUSION: 1. Technically successful endovenous laser ablation of the left great saphenous vein. Dictated by: Camilo Wood M.D. on 11/08/2021 at 08:57 Approved by: Camilo Wood M.D. on 11/08/2021 at 08:59 Normal [facility] VC CONSULT FOLLOWUPon 2021 VC CONSULT FOLLOWUP Patient: TORIE JOHNSTONNikia Exam Date: 10/19/2021 : 1990 Gender:F Ordering : DR SADI JEWELL M.D. Admission #: [id number] Family : Order #: [id number] CLICK HERE TO VIEW EXAM RADIOLOGY REPORT PROCEDURE: VEIN CENTER CONSULTATION FOLLOWUP VEIN CENTER - OFFICE VISIT FOLLOW UP COMPARISON: None. PROGRESS NOTES: The patient reports occasional mild tenderness within proximal thigh since procedure. There has been interval reduction in varicosities. The patient has followed our recommendations to walk 20-30 minutes once or twice per day since the procedure. Physical exam demonstrates decrease in superficial varicosities of the right leg. Persistent varicosities are identified along the legs bilaterally. Review of the ultrasound performed the same day demonstrates occlusive thrombus extending throughout the treated vein, see separate report, consistent with a successful ablation. No thrombus extending into or beyond the saphenofemoral junction. The patient expressed a desire to proceed with treatment of remaining incompetent veins. The patient was informed that treatment was a process and would require several procedures/sessions. IMPRESSION: 1. Successful ablation of the right great saphenous vein 2. Persistent incompetent veins and bilateral leg symptoms PLAN: Endovenous laser ablation of left great saphenous vein will be performed next. Nurse notes, history and physical were reviewed and confirmed, see attached forms. The nurse was present throughout the physical exam and consultation Dictated by: Camilo Wood M.D. on 10/19/2021 at 09:35 Approved by: Camilo Wood M.D. on 10/19/2021 at 09:37 Normal [facility] VC EXT VENOUS RT LIMITEDon 0 10-19-2021 VC EXT VENOUS RT LIMITED Patient: TORIE JOHNSTONNikia Exam Date: 10/19/2021 : 1990 Gender:F Ordering : DR SADI JEWELL M.D. Admission #: [id number] Family : Order #: [id number] CLICK HERE TO VIEW EXAM RADIOLOGY REPORT PROCEDURE: VEIN CENTER EXTREMITY VENOUS RIGHT LIMITED COMPARISON: None. INDICATIONS: Phlebitis and thrombophlebitis of superficial veins of right lower extremity I80.01 TECHNIQUE: Lower extremity franco scale and Duplex Doppler evaluation of the deep venous system from the inguinal ligament through the calf veins. FINDINGS: REGION: Right lower extremity. THROMBI: Negative for DVT. Heat induced thrombus in the GSV 3.2 cm from the SFJ and extends to the proximal calf at area of insertion. COMPRESSIBILITY: Non-compressible segments. FLOW: Areas of no flow. OTHER: *Exam performed in accordance with [facility] practice guidelines- Peripheral venous ultrasound, August 20, 2009. CONCLUSION: 1. Successful post ablation occlusion of the right great saphenous vein. Dictated by: Camilo Wood M.D. on 10/19/2021 at 09:33 Approved by: Camilo Wood M.D. on 10/19/2021 at 09:34 Normal [facility] VC ENDOVENOUS ABL 1ST V RTon 10-16-2021 VC ENDOVENOUS ABL 1ST V RT Patient: VICKIE TORIE RNikia Exam Date: 10/16/2021 : 1990 Gender:F Ordering : DR SADI JEWELL M.D. Admission #: [id number] Family : Order #: [id number] CLICK HERE TO VIEW EXAM RADIOLOGY REPORT PROCEDURE: VEIN CENTER ENDOVENOUS ABLATION FIRST VEIN RIGHT GREAT SAPHENOUS VEIN COMPARISON: None. INDICATIONS: Pain co-occurrent and due to varicose veins of bilateral legs I83.813 OPERATIVE REPORT: The risks and benefits of the procedure had been previously discussed, and were rediscussed at length. Informed written consent was obtained by and Ketan mckenzie. Time out procedure was performed. The right lower extremity was prepared and draped in the usual sterile fashion to allow knee flexion in the sterile field. Duplex ultrasound probe was draped in a sterile cover, sterile transmission gel was used. Venous mapping was performed with the areas of dilation and large tributaries marked. The total length was 38 cm from the entry upper calf to 3 cm below the saphenofemoral junction. The vein below this area was tortuous and not amenable to laser ablation. The diameter of the greater saphenous vein ranged from 4-8 mm. A 30 gauge needle and 1% buffered lidocaine was used to anesthetize the entry site. A 4 mm incision was made with a scalpel and the saphenous vein was entered percutaneously under direct ultrasound guidance with a micropuncture set, a single stick was successful in gaining access. A micro-guide wire was inserted and the needle removed. A micro-set including a dilator was inserted over the microwire and the needle and dilator were removed. A 0.018 guide wire was inserted through the micro-set and threaded through the saphenous vein to the saphenofemoral junction. The dilator was removed and an introducer sheath was inserted over the wire until the end of the sheath entered the saphenofemoral junction. The dilator and wire were removed and the 600 micron fiber was introduced and placed and positioned so that it extended beyond the sheath and was 3 cm peripheral to the saphenofemoral femoral junction. Final position of the fiber was determined by ultrasound guidance and duplex imaging. Tumescent anesthetic was delivered by ultrasound guidance. 225 cc of fluid was delivered along the entire course of the saphenous vein. The solution consisted of 500 cc of normal saline with 20mL of 1% lidocaine and 10 mL of sodium bicarbonate. A final positioning check was made. The energy source was turned on by means of the foot pedal and the fiber and sheath were withdrawn. The total number of Joules delivered was 1762. The laser was active for 220 seconds under continuous pulse, average laser use of 8 J. Laser start time 9:19 a.m. October 16, 2021. Laser stop time 9:22 a.m. October 16, 2021. A duplex ultrasound revealed compressibility and flow at the saphenofemoral junction immediately after the procedure. Hemostasis at the access site was achieved. The skin incision of the saphenous vein was closed with a 4 x 4. A compression stocking was applied. Postop instructions were given. A follow up appointment was recommended and scheduled. The patient tolerated the procedure well and was discharged in good condition. CONCLUSION: 1. Technically successful endovenous laser ablation of the right great saphenous vein. Dictated by: Sadi Jewell MD on 10/16/2021 at 09:25 Approved by: Sadi Jewell MD on 10/16/2021 at 09:30 Normal [facility] US THYROIDon 10-10-2021 US THYROID EXAMINATION: US THYROID HISTORY: Hypothyroidism COMPARISON: Ultrasound thyroid 09/26/2020 FINDINGS: RIGHT LOBE: Enlarged, heterogeneous lobe without appreciable nodules. Lobe size: 6.9 x 2.2 x 2.4 cm LEFT LOBE: Enlarged, heterogeneous lobe without appreciable nodules. Lobe size: 6.8 x 2.2 x 2.1 cm ISTHMUS: Thickened, heterogeneous without appreciable nodules. Thickness: 8 mm IMPRESSION: 1. Enlarged, markedly heterogeneous thyroid gland without appreciable nodules. No increased vascularity. No significant change. Electronically authenticated by: CAMILO WOOD Date: 2021-10-10 08:52 Normal [facility] 11-15-2020 MAHADN Telephone (GIULIANO) TORIE BARRETT ([id number]) 1990 F Date Time Provider Department 11/15/20 JOSE MANUEL FISHMAN During your visit today, we recorded the following information about you: Nydia Zhou 11/15/2020 10:14 AM Signed Please sign pending lab orders for Saturday11/22/20. 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] Other Visit Diagnosis:Microcytic anemia [D50.9] Order(s):CBC + DIFF [SQCBCDIF] Order #: [id number] FUTURE COMP METABOLIC PANEL [SQCMP] Order #: [id number] FUTURE Prescriptions as of 11/15/2020 Sig: OMEPRAZOLE 20 MG CAPSULE,ADRI* FOLIC ACID 1 MG TABLET Take 1 tablet by mouth once d* Problem List As Of Date: 11/15/2020 (None) Encounter Status:Closed by ZHOU AUGUST on 11/17/20 [facility] [place] 11-02-2020 ANNA Telephone (HEMASA) TORIE BARRETT ([id number]) 1990 F Date Time Provider Department 11/02/20 ANA GRIFFIN During your visit today, we recorded the following information about you: Ana Griffin RN 11/02/2020 11:39 AM Signed Yamile Garcia CNP, reports that the pt's recent US showed an enlarged spleen. Asks if this would have any correlation with her known Thalassemia. Requesting Dr Fishman's opinion. Per Dr Fishman, splenomegaly is associated w/ thalassemia. Recommends yearly US to monitor. Plans to examine pt when here for her RV on 11/22. Call placed to Yamile Garcia's office. 's recommendations left on nurse voicemail. Requesting call back to confirm receipt. AMADOU Lebron RN 11/02/2020 12:45 PM Signed Voicemail message received from Fabiola Garcia's office. Confirms receipt of message. Ana Griffin RN Allergies As of Date: 11/02/2020 (No Known Allergies) Date Reviewed: 08/23/2020 Reviewed by: Nydia Epperson - Fully Assessed Reason for Visit: Results [95] Cmt: US Prescriptions as of 11/02/2020 Sig: OMEPRAZOLE 20 MG CAPSULE,ADRI* FOLIC ACID 1 MG TABLET Take 1 tablet by mouth once d* Problem List As Of Date: 11/02/2020 (None) Encounter Status:Closed by ANA GRIFFIN on 11/02/20 [facility] (HEMASA) TORIE BARRETT ([id number]) 1990 F Date Time Provider Department 08/24/20 RAÚL VIVAR (AMADOU) GIULIANO During your visit today, we recorded the following information about you: Raúl Vivar RN, RN 08/24/2020 12:59 PM Signed ----- Message from Jose Manuel Fishman sent at 08/24/2020 9:48 AM EDT ----- Please inform the patient that her iron level is completely normal. We will continue as planned and I will see her as scheduled. JEZ Vivar RN, RN 08/24/2020 1:00 PM Signed Call placed to pt. No answer. Left message informing pt of Dr Fishman's message and to return call if any questions/concerns. Raúl Vivar RN Allergies As of Date: 08/24/2020 (No Known Allergies) Date Reviewed: 08/23/2020 Reviewed by: Nydia Epperson - Fully Assessed Reason for Visit: Results [95] Prescriptions as of 08/24/2020 Sig: OMEPRAZOLE 20 MG CAPSULE,ADRI* FOLIC ACID 1 MG TABLET Take 1 tablet by mouth once d* Problem List As Of Date: 08/24/2020 (None) Encounter Status:Closed by RAÚL VIVAR RN on 08/24/20 Normal [facility] CNOVSPon 08-23-2020 CNOVSP Visit (SP) Office (HEMASA) TORIE BARRETT ([id number]) 1990 F Date Time Provider Department 08/23/20 11:00 AM JOSE MANUEL FISHMAN During your visit today, we recorded the following information about you: Temperature Pulse Respiration Blood pressure 97.6 degrees 76/minute 18/minute 130/84 Weight Height Last Period 98 kg 1.6 m 08/23/20 Jose Manuel Fishman MD 08/23/2020 9:50 PM Signed PATIENT NAME: Torie Barrett DATE: 08/23/2020 PRIMARY CARE PHYSICIAN: Yamile Garcia CNP HPI: This is a 30 year old female referred for evaluation of chronic microcytic anemia. The patient has a long history of microcytic anemia, initially discovered when she was a teenager. She apparently also has a strong family history for multiple family members with anemia. She remembers receiving several courses of oral iron in the past, but has been intolerant of oral iron. She has received several IV iron infusions as well, last given in 2018. 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 Unfortunately these records are not available for verification (apparently obtained at a hospital in [place]). The patient was recently seen by her PCP and labs revealed persistent anemia with a hemoglobin of approximately 10. She currently is referred for further evaluation. At this time she actually feels fairly well. She has mild fatigue which is longstanding. She does have fairly heavy menses, but no other signs of bleeding. Her main complaint is intermittent chest pain related to reflux disease. That has improved with her current medications. The patient does not smoke or drink. Review of systems otherwise unremarkable. MEDICATIONS: No current outpatient medications on file. No current facility-administered medications for this visit. ALLERGIES: ALLERGIES Not on File PAST MEDICAL HISTORY: PAST MEDICAL HISTORY Diagnosis Date - Anemia 07/2020 referral Yamile Garcia - GERD (gastroesophageal reflux disease) - Thalassemia PAST SURGICAL HISTORY: PAST SURGICAL HISTORY Procedure Laterality Date - DANDC, DIAG AND/OR THERAPEUTIC - LIGATE FALLOPIAN TUBE FAMILY HISTORY: No family history on file. SOCIAL HISTORY: Social History Tobacco Use - Smoking status: Not on file Substance Use Topics - Alcohol use: Not on file - Drug use: Not on file COMPLETE REVIEW OF SYSTEMS: CONSTITUTION: Negative for pain, fatigue, weight loss, or appetite loss. EENT: Negative for mouth soreness, antibiotics use, epistaxis, visual problems, neck or facial swelling, fever/chills, bleeding gums, or hearing loss. CV: Negative for edema, calf swelling, palpitations, or chest pain. RESPIRATORY: Negative for cough, SOB, hemoptysis, or wheezing. GI: Negative for nausea/vomiting, heartburn, vomiting blood, dysphasia, diarrhea, blood in stool, constipation, early satiety, PICA, vegetarian, poor nutrition, abdominal fullness, or abdominal pain. NEUROLOGICAL: Negative for numbness/tingling, dizziness, gait disturbance, headache, speech disturbance, tremor, hemiparesis/sensory loss, or change in mental status. MUSCULOSKELETAL: Negative for joint pain, joint swelling, or proximal muscle weakness. SKIN: Negative for hair loss, bruising, nail changes, rash, itching, pallor, or jaundice. ENDO/URO: Negative for hot flashes, cold or heat intolerance, urinary frequency, urinary hesitancy, menorrhagia, or hematuria. PSYCH: Negative for anxiety, depression, or other. PHYSICAL EXAM: BP 130/84 Pulse 76 Temp 36.4 ?C (97.6 ?F) (Temporal) Resp 18 Ht 160 cm (5' 3 ) Wt 98 kg (216 lb) LMP 08/23/2020 SpO2 100% BMI 38.26 kg/m? GENERAL EXAM: Well developed/well nourished; in no acute distress. SKIN: Negative for lesions, rashes, or ulcers on the upper and lower extremities and face. Negative for palpations/nodules, purpura, and ecchymosis. EENT: Negative for conjunctiva, mucosal pallor, JVD, LAP, thyromegaly, and glossitis. Supple AND PERRL. EXTREMITIES: Negative for cyanosis, clubbing, and crepitus. LUNGS: Negative to auscultation, respiratory effort, and percussion. CARDIOVASCULAR: Regular rate. Negative for murmurs/S3S4/abnormal sounds, edema, and carotid bruits. ABDOMEN: Negative for masses, hernia, and spleen/liver abnormalities. RECTAL: Not done PSYCHIATRIC: Negative for mood/affect changes, recent AND remote memory changes, and judgement and insight. NEUROLOGICAL: Alert, oriented x person, place, time. Cranial nerves 2-12 intact. Sensory for pain, light touch, vibration intact on all 4 extremities. Reflexes symmetric for biceps/brachioradial/ patella/achilles. MUSCULOSKELETAL: Negative examination of joints, bones, muscles/tendons of all four extremities for inspection, percussion, and palpation. Negative (more content not included)... Normal [facility] Ferritinon 08-23-2020 Ferritin [Mass/Vol] 167.0 ng/mL Normal 14.7-205.1 [facility] Comment on above: Performed By: #### I PARMINDER FERR #### [facility] [employer] [address] [place] [phone] Iron and TIBCon 08-23-2020 Iron [Mass/Vol] 75 ug/dL Normal 41-186 [facility] Comment on above: Performed By: #### I PARMINDER FERR #### [place] [id number] [place] [phone] TIBC 293 ug/dL Normal 232-386 [facility] Comment on above: Performed By: #### I PARMINDER FERR #### [facility] [employer] [facility] [place] [address] Transferrin Saturatn 26 % Normal 15-57 [facility] Comment on above: Performed By: #### I PARMINDER FERR #### [facility] [employer] [facility] [place] [address] LDon 08-23-2020 LD 197 U/L Normal 135-214 [facility] Remote CBCDIF (for [facility] use o nly)on 08-23-2020 Abs Baso <0.03 Normal <0.11 [facility] Abs [place] 0.21 k/uL Normal <0.87 [facility] Abs Neut 2.26 k/uL Normal 1.45-7.50 [facility] Absolute nRBC <0.01 Normal <0.01 [facility] Basophils/100 WBC (Bld) 0.5 % Normal [facility] DTYPE Auto Diff Normal [facility] Eosinophils (Bld) [#/Vol] 0.06 10*3/uL Normal <0.46 [facility] Eosinophils/100 WBC (Bld) 1.5 % Normal [facility] Erythrocyte distribution width (RBC) [Ratio] 16.3 % High 11.5-15.0 [facility] Hematocrit (Bld) [Volume fraction] 32.1 % Low 36.0-46.0 [facility] Hemoglobin (Bld) [Mass/Vol] 9.8 g/dL Low 11.5-15.5 [facility] Lymphocytes (Bld) [#/Vol] 1.42 10*3/uL Normal 1.00-4.00 [facility] Lymphocytes/100 WBC (Bld) 35.7 % Normal [facility] MCH 18.2 pG Low 26.0-34.0 [facility] MCHC (RBC) [Mass/Vol] 30.5 g/dL Normal 30.5-36.0 [facility] MCV (RBC) [Entitic vol] 59.6 fL Low 80.0-100.0 [facility] Monocytes/100 WBC (Bld) 5.3 % Normal [facility] Neutrophils/100 WBC (Bld) 57.0 % Normal [facility] NRBCs 0.0 /100 WBC Normal 0 [facility] Platelet mean volume (Bld) [Entitic vol] 10.3 fL Normal 9.0-12.7 [facility] Platelets (Bld) [#/Vol] 276 10*3/uL Normal 150-400 [facility] Comment on above: Result Comment: Samp le checked for a clot. RBC (Bld) [#/Vol] 5.39 10*6/uL High 3.90-5.20 [facility] WBC (Bld) [#/Vol] 3.98 10*3/uL Normal 3.70-11.00 [facility] Reticulocyteon 08-23-2020 Abs Retic 0.107 M/uL High 0.0180-0.100 0 [facility] Retic% 2.0 % Normal 0.4-2.0 [facility] Vital Signs Date Time Vital Sign Value Performing Clinician Faci lity 12-10-2021 14:00-0400 Body temperature 98.6 [degF] [facility] 12-10-2021 14:00-0400 Diastolic blood pressure 94 mm[Hg] [facility] 12-10-2021 14:00-0400 Heart rate 86 /min [facility] 12-10-2021 14:00-0400 Mean blood pressure 106 mm[Hg] [facility] 12-10-2021 14:00-0400 Respiratory rate 18 /min [facility] 12-10-2021 14:00-0400 SaO2% (BldA) [Mass fraction] 100 % [facility] 12-10-2021 14:00-0400 Systolic blood pressure 131 mm[Hg] [facility] 12-10-2021 03:38-0400 Body temperature 98.24 [degF] [facility] 12-10-2021 03:38-0400 Diastolic blood pressure 64 mm[Hg] [facility] 12-10-2021 03:38-0400 Heart rate 92 /min [facility] 12-10-2021 03:38-0400 Mean blood pressure 80 mm[Hg] [facility] 12-10-2021 03:38-0400 Respiratory rate 17 /min [facility] 12-10-2021 03:38-0400 SaO2% (BldA) [Mass fraction] 99 % [facility] 12-10-2021 03:38-0400 Systolic blood pressure 111 mm[Hg] [facility] 12-10-2021 03:00-0400 Diastolic blood pressure 85 mm[Hg] [facility] 12-10-2021 03:00-0400 Mean blood pressure 102 mm[Hg] [facility] 12-10-2021 03:00-0400 Systolic blood pressure 137 mm[Hg] [facility] 12-10-2021 00:00-0400 Heart rate 80 /min [facility] 12-09-2021 23:00-0400 gluc 90 mg/dL [facility] 12-09-2021 23:00-0400 gluc [facility] 12-09-2021 23:00-0400 Heart rate 75 /min [facility] 12-09-2021 22:46-0400 Heart rate 86 /min [facility] Encounters Encounter Date Encounter Type Care Provider Facility Start: 09-20-2022 End: 09-21-2022 ambulatory MAHAD GARCIA Facility:[facility] Start: 09-04-2022 End: 09-05-[address] SADI JEWELL Facility:[facility] Start: 08-27-2022 End: 08-27-[address] CAMILO WOOD Facility:[facility] Start: 08-21-2022 End: 08-22-[address] SADI JEWELL Facility:[facility] Start: 08-16-2022 End: 08-17-[address] SADI JEWELL Facility:[facility] Start: 05-16-2022 End: 05-16-2022 ambulatory MARIAN HIGGINS Facility:[facility] Start: 04-19-2022 End: 04-20-2022 ambulatory MARIAN HIGGINS Facility:[facility] Start: 12-20-2021 End: 12-21-2021 ambulatory ANA MADDOX . Facility:[facility] Start: 12-09-2021 End: 12-10-2021 Emergency department patient visit Miguel Kamara [facility] Start: 11-23-2021 End: 11-24-2021 ambulatory MAHAD GARCIA Facility:[facility] Start: 11-21-[address] SADI JEWELL Facilit y:[facility]1 Start: 11-16-2021 End: 11-17-[address] SADI JEWELL Facility:[facility] Start: 11-08-2021 End: 11-09-[address] SADI JEWELL Facility:[facility] Start: 10-19-2021 End: 10-20-[address] SADI JEWELL Facility:[facility] Start: 10-16-2021 End: 10-17-[address] SADI JEWELL Facility:[facility] Start: 10-10-2021 End: 10-11-2021 ambulatory MAHAD SMITHROMA Facility:[facility] Start: 03-16-2021 Telephone encounter [facility] Start: 08-22-2020 End: 08-22-2020 Chart abstracting Jose Manuel Fishman Work Phone: Hematology/Oncology Start: 08-22-2020 End: 08-22-2020 Patient encounter procedure External Provider [facility] Start: 08-22-2020 Results Only External Provider Exter nal-NonCCF Procedures Date Procedure Procedure Detail Performing Clinician Start: 08-22-2020 EXTERNAL IMAGING Technical Testing Engineer al Provider Start: 08-22-2020 EXTERNAL LAB External P rovider Plan of Treatment Date Care Activity Detail Author Start: 01-26-2020 Influenza vaccination INFLUENZA (#1) [facility] Start: 2019 HPV TESTING HPV TESTING [facility] Start: 2010 PAP TESTING PAP TESTING [facility] Start: 2008 Urine microalbumin profile DTAP,TDAP ,TD (1 - Tdap) [facility] Start: 2007 HEPATITIS C SCREENING HEPATITIS C SC REENING [facility] Start: 2007 HIV SCREENING HIV SCREENING [facility] Start: 2001 Adult depression scr eening assessment DEPRESSION SCREENING [facility] Clini c Payers Date Payer Category Payer Private Health Insurance [employer] Daysi ETJENNY OPEN ACCESS [employer] SELECT [id number] 2020-Present EPO [id number] 1989 Unknown [id number] 93 1989 Unknown [id number] [id number] 93 1989 Unknown [id number] [id number] 93 1989 Unknown [id number] 2.16.840.1.840093.3.579.2.5 93 1989 Unknown [id number] 2.16.840.1.999061.3.579.2.5 93 1989 Unknown [id number] 2.16.840.1.695590.3.579.2.5 93 1989 Unknown [id number] 2.16.840.1.719009.3.579.2.5 93 1989 Unknown [id number] 2.16.840.1.405209.3.579.2.5 1989 Unknown [id number] 2.16.840.1.657355.3.579.2.5 93 1989 Unknown [id number] 2.16.840.1.850091.3.579.2.5 1989 Unknown [id number] 2.16.840.1.037097.3.579.2.5 93 1989 Unknown [id number] 2.16.840.1.108885.3.579.2.5 1989 Unknown [id number] 2.16.840.1.590447.3.579.2.5 1989 Unknown [id number] 2.16.840.1.260493.3.579.2.5 93 1989 Unknown [id number] 2.16.840.1.902903.3.579.2.5 93 1959 Medicaid [id number] 1959 Private Health Insurance [id number] 1959 Self-pay [id number] 1959 Self-pay 1959 Unknown [id number] 1959 Unknown [id number] Social History Date Type Detail Facility Start: 08-22-2020 Tobacco smoking stat [facility] Unknown if ever smoked [facility] Start: 1989 Sex Assigned At Not on file [facility] Exposure to SARS-CoV -2 (event) Not sure [facility] Sex Assigned At [employer] Other Tobacco smoking status No Smokin g Status Entered [facility] Functional Status Date Assessment Result Facility 12-09-2021 Functional Status N/A [facility] Evaluation + Plan note 12-10-2021 Note Date & Type Note Facility 12-10-2021 Evaluation + Plan note Extrac radha from: Title:ED Note Author:Asad Strong, Miguel Jansen te:12/10/21 1. Vertigo (R42: Dizziness a nd giddiness) 2. Leg pain (M79.606: Pain in leg, unspecified) Orders: meclizine, 25 mg = 1 tab(s), Oral, TID, # 20 tab(s), Refills(s) 0 meclizine, 25 mg = 2 tab(s), Tab, Oral, Once, Stop date 12/10/21 0:39:00 EDT, STAT, Start date 12/10/21 0:39:00 EDT, 12/10/21 0:39:00 EDT ondansetron, 4 mg = 1 tab(s), Oral, q6hr, PRN Nausea/Vomiting, # 12 tab(s), Refills(s) 0 promethazine, 12.5 mg = 0.5 mL, Injection, IV Push, Once, Stop date 12/10/21 0:39:00 EDT, STAT, Start date 12/10/21 0:39:00 EDT, 12/10/21 0:39:00 EDT Sodium Chloride 0.9% intravenous solution, 1,000 mL, Soln-IV, IV, Once, Stop date 12/10/21 0:39:00 EDT, STAT, Start date 12/10/21 0:39:00 EDT, mL/hr, Infuse over 61, minute(s) US LE Venous Duplex Bilateral Diagnostic Tests Pending * Path. Review 12/10/21 [facility] Hospital Discharge instructions 12-10-2021 Note Date & Type Note Facility 12-10-2021 Hospital Discharg e instructions Patient Education 12/10/2021 03:49:36 Vertigo Vertigo Vertigo is the feeling that you or your surroundings are moving when they are not. This feeling can come and go at any time. Vertigo often goes away on its own. Vertigo can be dangerous if it occurs while you are doing something that could endanger you or others, such as driving or operating machinery. Your health care provider will do tests to determine the cause of your vertigo. Tests will also help your health care provider decide how best to treat your condition. Follow these instructions at home: Eating and drinking Drink enough fluid to keep your urine pale yellow. Do not drink alcohol. Activity Return to your normal activities as told by your health care provider. Ask your health care provider what activities are safe for you. In the morning, first sit up on the side of the bed. When you feel okay, stand slowly while you hold onto something until you know that your balance is fine. Move slowly. Avoid sudden body or head movements or certain positions, as told by your health care provider. If you have trouble walking or keeping your balance, try using a cane for stability. If you feel dizzy or unstable, sit down right away. Avoid doing any tasks that would cause danger to you or others if vertigo occurs. Avoid bending down if you feel dizzy. Place items in your home so that they are easy for you to reach without leaning over. Do not drive or use heavy machinery if you feel dizzy. General instructions Take [id number] and prescription medicines only as told by your health care provider. Keep all follow-up visits as told by your health care provider. This is important. Contact a health care provider if: Your medicines do not relieve your vertigo or they make it worse. You have a fever. Your condition gets worse or you develop new symptoms. Your family or friends notice any behavioral changes. Your nausea or vomiting gets worse. You have numbness or a prickling and tingling sensation in part of your body. Get help right away if you: Have difficulty moving or speaking. Are always dizzy. Faint. Develop severe headaches. Have weakness in your hands, arms, or legs. Have changes in your hearing or vision. Develop a stiff neck. Develop sensitivity to light. Summary Vertigo is the feeling that you or your surroundings are moving when they are not. Your health care provider will do tests to determine the cause of your vertigo. Follow instructions for home care. You may be told to avoid certain tasks, positions, or movements. Contact a health care provider if your medicines do not relieve your symptoms, or if you have a fever, nausea, vomiting, or changes in behavior. Get help right away if you have severe headaches or difficulty speaking, or you develop hearing or vision problems. This information is not intended to replace advice given to you by your health care provider. Make sure you discuss any questions you have with your health care provider. Document Released: 02/20/2006 Document Revised: 04/06/2019 Document Reviewed: 04/06/2019 SafetyCertified Patient Education 2020 [employer]. Follow Up Care 12/09/2021 22:26:43 With:YAMILE GARCIA Address: [address] [place] [address] [phone] Business (1) When:12/13/2021 Comments:Return to the emergency room if your vertigo recurs or any new symptoms [facility] Clinical Note 12-10-2021 Note Date & Type Note Facility 12-10-2021 Note pt arrived to ed fro m home via private car c/o dizziness for 2 days with nausea and BL leg pain. pt has recently had varicose vein procedure done. VSS. pt with no redness or swelling of the leg. iv access obtained. labs sent. urine sent. pt medicated as ordered. pt denies any SOB. pt has hx of anxiety [facility] Progress note 08-23-2020 Note Date & Type Note Facility 08-23-2020 Note HNO ID: [id number] Author: Jose Manuel Fishman Service: ? Author Type: Physician Type: Progress Notes Filed: 08/23/2020 9:50 PM Note Text: PATIENT NAME: Torie Barrett DATE: 08/23/2020 PRIMARY CARE PHYSICIAN: Yamile Garcia CNP HPI: This is a 30 year old female referred for evaluation of chronic microcytic anemia. The patient has a long history of microcytic anemia, initially discovered when she was a teenager. She apparently also has a strong family history for multiple family members with anemia. She remembers receiving several courses of oral iron in the past, but has been intolerant of oral iron. She has received several IV iron infusions as well, last given in 2018. 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 Unfortunately these records are not available for verification (apparently obtained at a hospital in [place]). The patient was recently seen by her PCP and labs revealed persistent anemia with a hemoglobin of approximately 10. She currently is referred for further evaluation. At this time she actually feels fairly well. She has mild fatigue which is longstanding. She does have fairly heavy menses, but no other signs of bleeding. Her main complaint is intermittent chest pain related to reflux disease. That has improved with her current medications. The patient does not smoke or drink. Review of systems otherwise unremarkable. MEDICATIONS: No current outpatient medications on file. No current facility-administered medications for this visit. ALLERGIES: ALLERGIES Not on File PAST MEDICAL HISTORY: PAST MEDICAL HISTORY Diagnosis Date - Anemia 07/2020 referral Yamile Garcia - GERD (gastroesophageal reflux disease) - Thalassemia PAST SURGICAL HISTORY: PAST SURGICAL HISTORY Procedure Laterality Date - DANDC, DIAG AND/OR THERAPEUTIC - LIGATE FALLOPIAN TUBE FAMILY HISTORY: No family history on file. SOCIAL HISTORY: Social History Tobacco Use - Smoking status: Not on file Substance Use Topics - Alcohol use: Not on file - Drug use: Not on file COMPLETE REVIEW OF SYSTEMS: CONSTITUTION: Negative for pain, fatigue, weight loss, or appetite loss. EENT: Negative for mouth soreness, antibiotics use, epistaxis, visual problems, neck or facial swelling, fever/chills, bleeding gums, or hearing loss. CV: Negative for edema, calf swelling, palpitations, or chest pain. RESPIRATORY: Negative for cough, SOB, hemoptysis, or wheezing. GI: Negative for nausea/vomiting, heartburn, vomiting blood, dysphasia, diarrhea, blood in stool, constipation, early satiety, PICA, vegetarian, poor nutrition, abdominal fullness, or abdominal pain. NEUROLOGICAL: Negative for numbness/tingling, dizziness, gait disturbance, headache, speech disturbance, tremor, hemiparesis/sensory loss, or change in mental status. MUSCULOSKELETAL: Negative for joint pain, joint swelling, or proximal muscle weakness. SKIN: Negative for hair loss, bruising, nail changes, rash, itching, pallor, or jaundice. ENDO/URO: Negative for hot flashes, cold or heat intolerance, urinary frequency, urinary hesitancy, menorrhagia, or hematuria. PSYCH: Negative for anxiety, depression, or other. PHYSICAL EXAM: BP 130/84 Pulse 76 Temp 36.4 ?C (97.6 ?F) (Temporal) Resp 18 Ht 160 cm (5' 3 ) Wt 98 kg (216 lb) LMP 08/23/2020 SpO2 100% BMI 38.26 kg/m? GENERAL EXAM: Well developed/well nourished; in no acute distress. SKIN: Negative for lesions, rashes, or ulcers on the upper and lower extremities and face. Negative for palpations/nodules, purpura, and ecchymosis. EENT: Negative for conjunctiva, mucosal pallor, JVD, LAP, thyromegaly, and glossitis. Supple AND PERRL. EXTREMITIES: Negative for cyanosis, clubbing, and crepitus. LUNGS: Negative to auscultation, respiratory effort, and percussion. CARDIOVASCULAR: Regular rate. Negative for murmurs/S3S4/abnormal sounds, edema, and carotid bruits. ABDOMEN: Negative for masses, hernia, and spleen/liver abnormalities. RECTAL: Not done PSYCHIATRIC: Negative for mood/affect changes, recent AND remote memory changes, and judgement and insight. NEUROLOGICAL: Alert, oriented x person, place, time. Cranial nerves 2-12 intact. Sensory for pain, light touch, vibration intact on all 4 extremities. Reflexes symmetric for biceps/brachioradial/patella/achilles. MUSCULOSKELETAL: Negative examination of joints, bones, muscles/tendons of all four extremities for inspection, percussion, and palpation. Negative for misallignment, asymmetry, crepitation, tenderness, mass, effusions. Range of motion normal. Negative for joint instability, laxity, dislocation. Gait steady. Negative for swelling, erythema, tenderness, soft tissue swelling, and atrophy. LABS: Hemoglobin (g/dL) Date Value 08/23/2020 9.8 Hematocrit (%) Date Value (more content not included)... [facility] Evaluation note Note Date & Type Note Facility Evaluation note No Information Merged With [facility] Other History general Narrative - Reported Note Date & Type Note Facility History general Narrative - Reported Type Surgical History D & C Surgical History tubal ligation Sub10 Systems [facility] [place] Other Hospital course Narrative Note Date & Type Note Facility Hospital course Narrative No data available for this section [facility] Progress note Note Date & Type Note Facility Progress note No data available for this section [facility] Summary Purpose Family History No Family History Records FoundNo Family History Records FoundNo Family History Records Found Advance Directives No Advanced Directives Records FoundNo Advanced Directives Records FoundNo Advanced Directives Records Found Additional Source Comments Source Comments (unrecognize d section and content) In the event this informatio n is protected by the Federal Confidentiality of Alcohol and Drug Abuse Patient Records regulations: The Federal rules restrict any use of the information to criminally investigate or prosecute any alcohol or drug abuse patient.[facility] the event this information is protected by the Federal Confidentiality of Alcohol and Drug Abuse Patient Records regulations: The Federal rules restrict any use of the information to criminally investigate or prosecute any alcohol or drug abuse patient.[facility] INFORMATION SOURCE (unrecogn ized section and content) DATE CREATED AUTHOR 06/25/2021 [facility] DATE CREATED AUTHOR AUTHOR'S ORGANIZ ATION 12/14/2021 [facility] DATE CREATED AUTHOR AUTHOR'S ORGANIZ ATION 10/06/2022 [facility] REASON FOR VISIT (unrecogniz ed section and content) N/S covid test Care Team (unrecognized sect ion and content) Personnel Name: YAMILE GARCIA CNP Address: [address] [place] [id number] FOR RECORDS PERTAINING TO PATIENTS WHO ARE OR HAVE BEEN ENROLLED IN A CHEMICAL DEPENDENCY/SUBSTANCEABUSE PROGRAM, SOME INFORMATION MAY BE OMITTED. This clinical summary was aggregated from multiple sources. Caution should be exercised in using it in the provision of clinical care. This summary normalizes information from multiple sources, and as a consequence, information in this document may materially change the coding, format and clinical context of patient data. In addition, data may be omitted in some cases. CLINICAL DECISIONS SHOULD BE BASED ON THE PRIMARY CLINICAL RECORDS. [facility] [employer] [facility]. provides no warranty or guarantee of the accuracy or completeness of information in this document.
[2023-06-11 17:47] LABS: Thyroid Stimulating Hormone 3.512 uIU/mL (0.358-3.740)
== END 2023-06-11 16:17 | disposition home or self-care (01) ==
LOC: LAB 16:18
PROVIDERS: Family Provider Nurse Practitioner Primary Care; PCP Nurse Practitioner Primary Care; Visit Provider Nurse Practitioner Primary Care
DX: E03.9 Hypothyroidism, unspecified (principal)
CPT/HCPCS: 36415; 84443

== ENCOUNTER 2023-08-04 07:54 | Emergency (ER) | payer OTHER, SELFPAY ==
[2023-08-04 07:59] VITALS: BP 139/99; PULSE 117; RESP 18; TEMP 37.2; O2SAT 99; BMI 41.6
--- OUTSIDE RECORDS SUMMARY | 2023-08-04 08:02 | XMS_ITS | CCD ---
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 Name Role Phone Unavailable Primary Care Provider Juan Carlos aPnchal Unavailable CEDRICYAMILE BRANDON Primary Care Physician [phone] FANTA, DR SADI Oliveira Consulting Unavailable AICHHOLZ, CARBON GRINDER YAMILE Primary Care Unavailable WEST, DR SADI Oliveira Attending Unavailable WEST, DR SADI Oliveira Admitting Unavailable WEST, DR SADI Oliveira Consulting Unavailable AICHHOLZ, CARBON GRINDER YAMILE Primary Care Unavailable WEST, DR SADI Oliveira Attending Unavailable WEST, DR SADI Oliveira Admitting Unavailable ZIEBER, DR JOSE Crowley Consulting Unavailable WEST, DR SADI Oliveira Consulting Unavailable AICHHOLZ, CARBON GRINDER YAMILE Primary Care Unavailable WEST, DR SADI Oliveira Attending Unavailable WEST, DR SADI Oliveira Admitting Unavailable ZIEBER, DR JOSE Crowley Consulting Unavailable WEST, DR SADI Oliveira Consulting Unavailable AICHHOLZ, CARBON GRINDER YAMILE Primary Care Unavailable WEST, DR SADI Oliveira Attending Unavailable WEST, DR SADI Oliveira Admitting Unavailable WEST, DR SADI Oliveira Consulting Unavailable AICHHOLZ, CARBON GRINDER YAMILE Primary Care Unavailable WEST, DR SADI Oliveira Attending Unavailable WEST, DR SADI Oliveira Admitting Unavailable ZIEBER, DR OJSE Crowley Consulting Unavailable WEST, DR SADI Oliveira Consulting Unavailable AICHHOLZ, CARBON GRINDER YAMILE Primary Care Unavailable WEST, DR SADI Oliveira Attending Unavailable FANTA, DR SADI Oliveira Admitting Unavailable ZIEBER, DR JOSE Crowley Consulting Unavailable WEST, DR SADI Oliveira Admitting Unavailable WEST, DR SADI Oliveira Attending Unavailable AICHHOLZ, CARBON GRINDER YAMILE Primary Care Unavailable WEST, DR SADI Oliveira Consulting Unavailable AICHHOLZ, CARBON GRINDER YAMILE Consulting Unavailable AICHHOLZ, CARBON GRINDER YAMILE Primary Care Unavailable AICHHOLZ, CARBON GRINDER YAMILE Attending Unavailable AICHHOLZ, CARBON GRINDER YAMILE Admitting Unavailable AICHHOLZ, CARBON GRINDER YAMILE Admitting Unavailable AICHHOLZ, CARBON GRINDER YAMILE Attending Unavailable AICHHOLZ, CARBON GRINDER YAMILE Primary Care Unavailable AICHHOLZ, CARBON GRINDER YAMILE Consulting Unavailable ADONAY, DR JOSE Crowley Consulting Unavailable AICHHOLZ, CARBON GRINDER YAMILE Consulting Unavailable AICHHOLZ, CARBON GRINDER YAMILE Primary Care Unavailable AICHHOLZ, CARBON GRINDER YAMILE Attending Unavailable AICHHOLZ, CARBON GRINDER YAMILE Admitting Unavailable ADONAY, DR JOSE Crowley Consulting Unavailable FRANDY ., DR MATOS Attending Unavailable HAY ., DR MATOS Admitting Unavailable AICHHOLZ, CARBON GRINDER YAMILE Primary Care Unavailable HAY ., DR MATOS Consulting Unavailable CONNIE COTA Consulting Unavailable RONALDO, MARIAN Consulting Unavailable STAR ., MADDIE Attending Unavailable STAR ., MADDIE Admitting Unavailable AICHHOLZ, CARBON GRINDER YAMILE Primary Care Unavailable JOSE RICKETTS Consulting Unavailable STAR Montejo, MADDIE Consulting Unavailable ORNALDO, MARIAN Consulting Unavailable RONALDO, MARIAN Attending Unavailable RONALDO, MARIAN Admitting Unavailable AICHHOLZ, CARBON GRINDER YAMILE Primary Care Unavailable PAKO JERRY Consulting Unavailable ANA VAZ Consulting Unavailable RONALDO, MARIAN Attending Unavailable RONALDO, MARIAN Admitting Unavailable AICHHOLZ, CARBON GRINDER YAMILE Primary Care Unavailable LEROY PRETTY Consulting Unavailable Ludy Garcia Consulting Unavailable FANTA, DR SADI Oliveira Consulting Unavailable AICHHOLZ, CARBON GRINDER YAMILE Primary Care Unavailable FANTA, DR SADI Oliveira Attending Unavailable FANTA, DR SADI Oliveira Admitting Unavailable ADONAY, DR JOSE Crowley Consulting Unavailable SHAMMO, EVGENY Primary Care Unavailable FRANCIS MA Referring Unavailable SHAMMO, EVGENY Primary Care Unavailable IRVIN, DIANE Referring Unavailable FRANCIS MA Attending Unavailable Medications Current Medications Medication Drug Class(es) [...] Episodic/Chronic Deficiency and other anemia (1 source) Beta thalassemia; 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)] Onset: 4 Chronic Deficiency and other anemia (1 source) Anemia, unspecified; Translations: [ANEMIA UNSPECIFIED] Onset: 3 Episodic Deficiency and other anemia (1 source) Iron deficiency anemia, unspecified; Translations: [Microcytic hypochromic anemia] Onset: 4 Episodic Esophageal disorders (1 source) Gastroesophageal reflux disease; Translations: [Gastro-esophageal reflux disease without esophagitis] Chronic Headache; including migraine (1 source) Headache; including migraine; Translations: [HEADACHE UNSPECIFIED] Onset: 2 Menopausal disorders (1 source) Hormone replacement therapy; Translations: [HORMONE REPLACEMENT THERAPY] Onset: 3 Episodic Other aftercare (1 source) Other mcc (current) drug therapy; Translations: [OTH SENIOR CARE CURRENT DRUG THERAPY] Onset: 3 Episodic Other [...] Name Value Interpretation Reference Range Facility CBC W Auto Differential pane l (Bld)on 2023 Basophils (Bld) [#/Vol] 0.03 10*3/uL Normal <0.11 [facility] Comment on above: Order Comment: Speci men Type: BLOOD SPECIMEN Ordering Facility: [facility] Address: [address] [place] [address] Performed By: #### 1 4196-0, 82095-2 #### [facility] [id number] [address] [place] [address] [place] Basophils/100 WBC (Bld) 0.5 % Normal [facility] Comment on above: Order Comment: Speci men Type: BLOOD SPECIMEN Ordering Facility: [facility] Address: [address] [place] [address] Performed By: #### 1 4196-0, 68494-4 #### [facility] [id number] [address] [place] [address] [place] Differential cell count method Nom (Bld) Auto Normal [facility] Comment on above: Order Comment: Speci men Type: BLOOD SPECIMEN Ordering Facility: [facility] Address: [address] [place] [address] Performed By: #### 1 4196-0, 83685-2 #### [facility] [id number] [address] [place] [address] [place] Eosinophils (Bld) [#/Vol] 0.10 10*3/uL Normal <0.46 [facility] Comment on above: Order Comment: Speci men Type: BLOOD SPECIMEN Ordering Facility: [facility] Address: [address] [place] [address] Performed By: #### 1 4196-0, 44703-1 #### [facility] [id number] [address] [place] [address] [place] Eosinophils/100 WBC (Bld) 1.8 % Normal [facility] Comment on above: Order Comment: Speci men Type: BLOOD SPECIMEN Ordering Facility: [facility] Address: [address] [place] [address] Performed By: #### 1 4196-0, 00832-3 #### [facility] [id number] [address] [place] [address] [place] Erythrocyte distribution width (RBC) [Ratio] 16.5 % High 11.5-15.0 [facility] Comment on above: Order Comment: Speci men Type: BLOOD SPECIMEN Ordering Facility: [facility] Address: [address] [place] [address] Performed By: #### 1 4196-0, 88120-3 #### [facility] [id number] [address] [place] [address] [place] Hematocrit (Bld) [Volume fraction] 34.9 % Low 36.0-46.0 [facility] Comment on above: Order Comment: Speci men Type: BLOOD SPECIMEN Ordering Facility: [facility] Address: [address] [place] [address] Performed By: #### 1 4196-0, 80400-1 #### [facility] [id number] [address] [place] [address] [place] Hemoglobin (Bld) [Mass/Vol] 10.5 g/dL Low 11.5-15.5 [facility] Comment on above: Order Comment: Speci men Type: BLOOD SPECIMEN Ordering Facility: [facility] Address: [address] [place] [address] Performed By: #### 1 4196-0, 67336-7 #### [facility] [id number] [address] [place] [address] [place] Immature granulocytes (Bld) [#/Vol] 10*3/uL Normal <0.10 [facility] Comment on above: Order Comment: Speci men Type: BLOOD SPECIMEN Ordering Facility: [facility] Address: [address] [place] [address] Performed By: #### 1 4196-0, 66472-2 #### [facility] [id number] [address] [place] [address] [place] Immature granulocytes/100 WBC (Bld) 0.2 % Normal [facility] Comment on above: Order Comment: Speci men Type: BLOOD SPECIMEN Ordering Facility: [facility] Address: [address] [place] [address] Performed By: #### 1 4196-0, 78046-2 #### [facility] [id number] [address] [place] [address] [place] Lymphocytes (Bld) [#/Vol] 1.77 10*3/uL Normal 1.00-4.00 [facility] Comment on above: Order Comment: Speci men Type: BLOOD SPECIMEN Ordering Facility: [facility] Address: [address] [place] [address] Performed By: #### 1 4196-0, 51999-7 #### [facility] [id number] [address] [place] [address] [place] Lymphocytes/100 WBC (Bld) 31.3 % Normal [facility] Comment on above: Order Comment: Speci men Type: BLOOD SPECIMEN Ordering Facility: [facility] Address: [address] [place] [address] Performed By: #### 1 4196-0, 85386-4 #### [facility] [id number] [address] [place] [address] [place] MCH (RBC) [Entitic mass] 17.9 pg Low 26.0-34.0 [facility] Comment on above: Order Comment: Speci men Type: BLOOD SPECIMEN Ordering Facility: [facility] Address: [address] [place] [address] Performed By: #### 1 4196-0, 08111-9 #### [facility] [id number] [address] [place] [address] [place] MCHC (RBC) [Mass/Vol] 30.1 g/dL Low 30.5-36.0 [facility] Comment on above: Order Comment: Speci men Type: BLOOD SPECIMEN Ordering Facility: [facility] Address: [address] [place] [address] Performed By: #### 1 4196-0, 83041-4 #### [facility] [id number] [address] [place] [address] [place] MCV (RBC) [Entitic vol] 59.7 fL Low 80.0-100.0 [facility] Comment on above: Order Comment: Speci men Type: BLOOD SPECIMEN Ordering Facility: [facility] Address: [address] [place] [address] Performed By: #### 1 4196-0, 60923-2 #### [facility] [id number] [address] [place] [address] [place] Monocytes (Bld) [#/Vol] 0.25 10*3/uL Normal <0.87 [facility] Comment on above: Order Comment: Speci men Type: BLOOD SPECIMEN Ordering Facility: [facility] Address: [address] [place] [address] Performed By: #### 1 4196-0, 45226-3 #### [facility] [id number] [address] [place] [address] [place] Monocytes/100 WBC (Bld) 4.4 % Normal [facility] Comment on above: Order Comment: Speci men Type: BLOOD SPECIMEN Ordering Facility: [facility] Address: [address] [place] [address] Performed By: #### 1 4196-0, 32971-1 #### [facility] [id number] [address] [place] [address] [place] Neutrophils (Bld) [#/Vol] 3.49 10*3/uL Normal 1.45-7.50 [facility] Comment on above: Order Comment: Speci men Type: BLOOD SPECIMEN Ordering Facility: [facility] Address: [address] [place] [address] Performed By: #### 1 4196-0, 62576-8 #### [facility] [place] [id number] [address] [place] [address] [place] Neutrophils/100 WBC (Bld) 61.8 % Normal [facility] Comment on above: Order Comment: Speci men Type: BLOOD SPECIMEN Ordering Facility: [facility] Address: [address] [place] [address] Performed By: #### 1 4196-0, 11092-4 #### [facility] [id number] [address] [place] [address] [place] Nucleated RBC (Bld) [#/Vol] 10*3/uL Normal <0.01 [facility] Comment on above: Order Comment: Speci men Type: BLOOD SPECIMEN Ordering Facility: [facility] Address: [address] [place] [address] Performed By: #### 1 4196-0, 05563-1 #### [facility] [id number] [address] [place] [address] [place] Nucleated RBC/100 WBC (Bld) [Ratio] 0.0 /100 WBC Normal [facility] Comment on above: Order Comment: Speci men Type: BLOOD SPECIMEN Ordering Facility: [facility] Address: [address] [place] [address] Performed By: #### 1 4196-0, 77997-5 #### [facility] [id number] [address] [place] [address] [place] Platelet mean volume (Bld) [Entitic vol] 10.5 fL Normal 9.0-12.7 [facility] Comment on above: Order Comment: Speci men Type: BLOOD SPECIMEN Ordering Facility: [facility] Address: [address] [place] [address] Performed By: #### 1 4196-0, 65057-3 #### [facility] [id number] [address] [place] [address] [place] Platelets (Bld) [#/Vol] 325 10*3/uL Normal 150-400 [facility] Comment on above: Order Comment: Speci men Type: BLOOD SPECIMEN Ordering Facility: [facility] Address: [address] [place] [address] Result Comment: Resu lts checked and verified.No clot detected. Performed By: #### 1 4196-0, 69503-2 #### [facility] [id number] [address] [place] [address] [place] RBC (Bld) [#/Vol] 5.85 10*6/uL High 3.90-5.20 [facility] Comment on above: Order Comment: Speci jordy Type: BLOOD SPECIMEN Ordering Facility: [facility] Address: [address] [place] [address] Performed By: #### 1 4196-0, 52365-1 #### [facility] [id number] [address] [place] [address] [place] WBC (Bld) [#/Vol] 5.65 10*3/uL Normal 3.70-11.00 [facility] Comment on above: Order Comment: Tiffanie spence Type: BLOOD SPECIMEN Ordering Facility: [facility] Address: [address] [place] [address] Performed By: #### 1 4196-0, 64012-2 #### [facility] [id number] [address] [place] [address] [place] CNOVSPon 2023 CNOVSP Visit (SP) Office ([facility]) TORIE ORTIZ ([id number]) 1990 F Date Time Provider Department 06/20/23 2:00 PM FRANCIS MA [facility] During your visit today, we recorded the following information about you: Pulse Respiration Blood pressure Weight 86/minute 20/minute 127/81 106.3 kg Height Last Period 1.6 m 06/17/23 Francis Ma MD 2023 2:44 PM Signed [facility], [place] Department of Hematologic Oncology and Blood Disorders PATIENT NAME: Torie Ortiz [facility] NO: [id number] ATTENDING PHYSICIAN: Francis Ma MD. DATE OF SERVICE: [address] Diane Salcedo for an opinion regarding beta-thalassemia. My final recommendations will be communicated back to the requesting physician by way of shared medical record or letter via US mail HISTORY OF PRESENT ILLNESS: 32 yowf who is referred for evaluation of beta-thalassemia. Microcytic anemia was discovered when she was a teenager. Her mother also has beta thalassemia. She has 4 living siblings but doesn't know if they are affected. 07/14/15 WBC 5.9, Hb 8.8/Hct 30.2, MCV 56.4 (?illegible), RDW 17.6, Plts 290,000 08/06/15 Fe 76/TIBC 501, ferritin 22.5 10/12/16 Hb 8.2/Hct 26.5, MCV 64.8, Plts 222,000 04/06/16 WBC 6.7, Hb 9.0/Hct 29.3, MCV 61, RDW 18.3, Plts 300,000; 2+ micro, 1+ hypochromia, 1+ basophilic stippling, 1+ elliptocytosis, 1+ teardrop cells, HbA 93.5%, HbF 1.3%, HbA2 5.2% 12/04/17 HbA 94%, HbF 0.7%, HbA2 5.3% 02/04/18 WBC 5.9, Hb 7.8/Hct 25.7, MCV 65.6, Plts 234,000 04/24/18 WBC 6.8, Hb 9.8/Hct 28.8, MCV 66.7, RDW 15.7, Plts 212,000 10/08/20 WBC 7.4, Hb 10.8/Hct 36.7, MCV 60.4, Plts 348,000, 56S, 36L, 6M, 2E, LFT's WNL 02/21/23 Abd US: splenomegaly (13.9 cm) 04/18/23 WBC 5.9, Hb 9.8/Hct 32, MCV 59.4, RDW 15.8, Plts 344,000, HbA 94.8%, Hb A2 5.2%, HbF 0%, Fe 53/TIBC 373, Ferritin 89, B12 309, Folate 17.4 Only [facility] CBC: Component Latest Ref Rng AND Units 08/23/2020 WBC 3.70 - 11.00 k/uL 3.98 RBC 3.90 - 5.20 m/uL 5.39 (H) Hemoglobin 11.5 - 15.5 g/dL 9.8 (L) Hematocrit 36.0 - 46.0 % 32.1 (L) MCV 80.0 - 100.0 fL 59.6 (L) MCH 26.0 - 34.0 pG 18.2 (L) MCHC 30.5 - 36.0 g/dL 30.5 RDW-CV 11.5 - 15.0 % 16.3 (H) Platelet Count 150 - 400 k/uL 276 MPV 9.0 - 12.7 fL 10.3 Neut% % 57.0 Abs Neut (ANC) 1.45 - 7.50 k/uL 2.26 Lymph% % 35.7 Abs Lymph 1.00 - 4.00 k/uL 1.42 Leon% % 5.3 Abs Leon <0.87 k/uL 0.21 Eosin% % 1.5 Abs Eosin <0.46 k/uL 0.06 Baso% % 0.5 Abs Baso <0.11 k/uL <0.03 Iron 41 - 186 ug/dL 75 TIBC 232 - 386 ug/dL 293 Transferrin Saturation 15 - 57 % 26 Retic % 0.4 - 2.0 % 2.0 Abs Retic 0.0180 - 0.1000 M/uL 0.107 (H) Ferritin 14.7 - 205.1 ng/mL 167.0 LD 135 - 214 U/L 197 She is . Her has been tested and doesn't have thalassemia. She's had heavy menstrual periods in the past and has been iron deficient as documented in the above lab results. She's been given oral as well as IV iron in the past (last in 2018 during ). 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 She was placed on folic acid. She had COVID-19 infection in April. She has never received a COVID vaccination. PAST MEDICAL HISTORY Diagnosis Date Anemia 07/2020 referral Yamile Jose GERD (gastroesophageal reflux disease) Thalassemia PAST SURGICAL HISTORY Procedure Laterality Date DANDC, DIAG AND/OR THERAPEUTIC LIGATE FALLOPIAN TUBE No family history on file. Social History Tobacco Use Smoking status: Never Smokeless tobacco: Never Substance Use Topics Alcohol use: Never Drug use: Never PHYSICAL EXAMINATION: BP 127/81 Pulse 86 Resp 20 Ht 160 cm (5' 2.99 ) Wt 106.3 kg (234 lb 5.6 oz) LMP 06/17/2023 SpO2 98% BMI 41.52 kg/m? Alert, in no acute distress. No jaundice, ecchymosis, petechiae. Ext: no edema. 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 This is defined by moderate chronic microcytic hypochromic anemia with Hb's generally <10 but more severe in times of stress (as during in this case). The genotype is likely either b+/b+ or b+/kj. The Hb electrophoresis didn't identify HbE or HPFH. The only discordant feature is the lack of a more significant elevation in HbF. Coinheritance with alpha-thalassemia is unlikely based on the family history but not ruled out by her Hb electrophoresis. She's had concurrent iron deficiency in the past secondary to menstrual blood loss but that is not the case as recently as March. Will recheck her CBC/diff and iron stores. I emphasized that iron should not be given without first documenting deficiency since iron absorption is increased in the thalassemias. However, she's not required transfusion in the past and iron overload is not expected to occur. Given her degree of anemia at baseline, lack of transfusion (more content not included)... Normal [facility] Comprehensive metabolic 2000 panelon 2023 Albumin [Mass/Vol] 4.4 g/dL Normal 3.9-4.9 [facility] Comment on above: Order Comment: Speci men Type: BLOOD SPECIMEN Ordering Facility: [facility] Address: [address] [place] [address] Performed By: #### 2 4323-8, 36732-3 #### [facility] [id number] [address] [place] [address] [place] ALP [Catalytic activity/Vol] 68 U/L Normal 34-123 [facility] Comment on above: Order Comment: Speci men Type: BLOOD SPECIMEN Ordering Facility: [facility] Address: [address] [place] [address] Performed By: #### 2 4323-8, 26282-4 #### [facility] [id number] [address] [place] [address] [place] ALT [Catalytic activity/Vol] 28 U/L Normal 7-38 [facility] Comment on above: Order Comment: Speci men Type: BLOOD SPECIMEN Ordering Facility: [facility] Address: [address] [place] [address] Performed By: #### 2 4323-8, 75531-2 #### [facility] [id number] [address] [place] [address] [place] Anion gap [Moles/Vol] 10 mmol/L Normal 9-18 [facility] Comment on above: Order Comment: Speci men Type: BLOOD SPECIMEN Ordering Facility: [facility] Address: [address] [place] [address] Performed By: #### 2 4323-8, 20683-1 #### [facility] [id number] [address] [place] [address] [place] AST [Catalytic activity/Vol] 22 U/L Normal 13-35 [facility] Comment on above: Order Comment: Speci men Type: BLOOD SPECIMEN Ordering Facility: [facility] Address: [address] [place] [address] Performed By: #### 2 4323-8, 61038-0 #### [facility] [place] [id number] [address] [place] [address] [place] Bilirubin [Mass/Vol] 0.4 mg/dL Normal 0.2-1.3 [facility] Comment on above: Order Comment: Speci men Type: BLOOD SPECIMEN Ordering Facility: [facility] Address: [address] [place] [address] Performed By: #### 2 4323-8, 88418-6 #### [facility] CLIA [id number] [address] [place] [address] [place] Calcium [Mass/Vol] 9.1 mg/dL Normal 8.5-10.2 [facility] Comment on above: Order Comment: Speci men Type: BLOOD SPECIMEN Ordering Facility: [facility] Address: [address] [place] [address] Performed By: #### 2 4323-8, 64712-0 #### [facility] CLIA [id number] [address] [place] [address] [place] Chloride [Moles/Vol] 106 mmol/L High 97-105 [facility] Comment on above: Order Comment: Speci men Type: BLOOD SPECIMEN Ordering Facility: [facility] Address: [address] [place] [address] Performed By: #### 2 4323-8, 33837-8 #### [facility] CLIA [id number] [address] [place] [address] [place] CO2 [Moles/Vol] 25 mmol/L Normal 22-30 [facility] Comment on above: Order Comment: Speci men Type: BLOOD SPECIMEN Ordering Facility: [facility] Address: [address] [place] [address] Performed By: #### 2 4323-8, 46273-1 #### [facility] CLIA [id number] [address] [place] [address] [place] Creatinine [Mass/Vol] 0.90 mg/dL Normal 0.58-0.96 [facility] Comment on above: Order Comment: Tiffanie spence Type: BLOOD SPECIMEN Ordering Facility: [facility] Address: [address] [place] [address] Performed By: #### 2 4323-8, 55181-1 #### [facility] [place] [id number] [address] [place] [address] [place] Creatinine and Glomerular filtration rate.predicted panel (S/P/Bld) 86 mL/min/1.73m??? Normal >=60 [facility] Comment on above: Order Comment: Tiffanie spence Type: BLOOD SPECIMEN Ordering Facility: [facility] Address: [address] [place] [address] Result Comment: Kenyatta mated Glomerular Filtration Rate (eGFR) is calculated using the 2020 CKD-EPI creatinine equation. This equation utilizes serum creatinine, sex, and age as parameters. The creatinine assay has traceable calibration to isotope dilution-mass spectrometry. Refer to KDIGO guidelines for clinical interpretation. In patients with unstable renal function, e.g. those with acute kidney injury, the eGFR may not accurately reflect actual GFR. Performed By: #### 2 4323-8, 39271-2 #### [facility] [id number] [address] [place] [address] [place] Glucose [Mass/Vol] 92 mg/dL Normal 74-99 [facility] Comment on above: Order Comment: Tiffanie spence Type: BLOOD SPECIMEN Ordering Facility: [facility] Address: [address] [place] [address] Result Comment: The [place] Diabetes Association (ADA) provides guidance for cutoff values for fasting glucose and random glucose. The ADA defines fasting as no caloric intake for at least 8 hours. Fasting plasma glucose results between 100 to 125 mg/dL indicate increased risk for diabetes (prediabetes). Fasting plasma glucose results greater than or equal to 126 mg/dL meet the criteria for diagnosis of diabetes. In the absence of unequivocal hyperglycemia, results should be confirmed by repeat testing. In a patient with classic symptoms of hyperglycemia or hyperglycemic crisis, random plasma glucose results greater than or equal to 200 mg/dL meet the criteria for diagnosis of diabetes. Reference: Standards of Medical Care in Diabetes 2016, [place] Diabetes Association. Diabetes Care. 2016.39(Suppl 1). Performed By: #### 2 4323-8, 02182-8 #### [facility] [id number] [address] [place] [address] [place] Potassium [Moles/Vol] 4.0 mmol/L Normal 3.7-5.1 [facility] Comment on above: Order Comment: Speci men Type: BLOOD SPECIMEN Ordering Facility: [facility] Address: [address] [place] [address] Performed By: #### 2 4323-8, 65225-9 #### [facility] [id number] [address] [place] [address] [place] Protein [Mass/Vol] 7.4 g/dL Normal 6.3-8.0 [facility] Comment on above: Order Comment: Speci men Type: BLOOD SPECIMEN Ordering Facility: [facility] Address: [address] [place] [address] Performed By: #### 2 4323-8, 58829-6 #### [facility] [id number] [address] [place] [address] [place] Sodium [Moles/Vol] 141 mmol/L Normal 136-144 [facility] Comment on above: Order Comment: Speci men Type: BLOOD SPECIMEN Ordering Facility: [facility] Address: [address] [place] [address] Performed By: #### 2 4323-8, 93448-7 #### [facility] [id number] [address] [place] [address] [place] Urea nitrogen [Mass/Vol] 16 mg/dL Normal 7-21 [facility] Comment on above: Order Comment: Speci men Type: BLOOD SPECIMEN Ordering Facility: [facility] Address: [address] [place] [address] Performed By: #### 2 4323-8, 28696-8 #### [facility] [id number] [address] [place] [address] [place] Ferritin SerPl-mCncon 2023 Ferritin [Mass/Vol] 73.6 ng/mL Normal 14.7-205.1 [facility] Comment on above: Order Comment: Speci men Type: BLOOD SPECIMEN Ordering Facility: [facility] Address: [address] [place] [address] Performed By: #### 4 542-7, 2276-4 #### [facility] CLIA [id number] [address] [place] [address] [place] Haptoglob SerPl-mCncon 06-20 Haptoglobin [Mass/Vol] 66 mg/dL Normal 31-238 [facility] Comment on above: Order Comment: Speci men Type: BLOOD SPECIMEN Ordering Facility: [facility] Address: [address] [place] [address] Performed By: #### 4 542-7, 2276-4 #### [facility] [place] [id number] [address] [place] [address] [place] Iron and Iron binding capaci ty panelon 2023 Iron [Mass/Vol] 66 ug/dL Normal 41-186 [facility] Comment on above: Order Comment: Speci men Type: BLOOD SPECIMEN Ordering Facility: [facility] Address: [address] [place] [address] Performed By: #### 2 4323-8, 17941-6 #### [facility] [place] [id number] [address] [place] [address] [place] Iron binding capacity [Mass/Vol] 352 ug/dL Normal 232-386 [facility] Comment on above: Order Comment: Speci men Type: BLOOD SPECIMEN Ordering Facility: [facility] Address: [address] [place] [address] Performed By: #### 2 4323-8, 30496-2 #### [facility] CLIA [id number] [address] [place] [address] [place] Iron/TIBC [Molar ratio] 18.8 % Normal 15.0-57.0 [facility] Comment on above: Order Comment: Speci men Type: BLOOD SPECIMEN Ordering Facility: [facility] Address: [address] [place] [address] Performed By: #### 2 4323-8, 11398-6 #### [facility] [id number] [address] [place] [address] [place] LDH SerPl-cCncon 2023 LDH [Catalytic activity/Vol] 193 U/L Normal 135-214 [facility] Comment on above: Order Comment: Speci men Type: BLOOD SPECIMEN Ordering Facility: [facility] Address: [address] [place] [address] Performed By: #### 2 532-0 #### [facility] [id number] [address] [place] [address] [place] Retics #on 2023 Reticulocytes (Bld) [#/Vol] 0.61425 10*3/uL High 0.018-0.100 [facility] Comment on above: Order Comment: Speci men Type: BLOOD SPECIMEN Ordering Facility: [facility] Address: [address] [place] [address] Performed By: #### 1 4196-0, 00775-8 #### [facility] [id number] [address] [place] [address] [place] Reticulocytes (Bld) [#/Vol]o n 2023 Reticulocytes/100 RBC (Bld) 2.2 % High 0.4-2.0 [facility] Comment on above: Order Comment: Speci men Type: BLOOD SPECIMEN Ordering Facility: [facility] Address: [address] [place] [address] Performed By: #### 1 4196-0, 41470-6 #### [facility] [id number] [facility] [address] STATES OF [facility] CBC AUTO DIFFon 09-20-2022 BASO # 0.0 103/ul Normal 0.0-0.[address] [facility] Comment on above: Performed By: #### C BC ####[facility] [address] [place], [place] [address]Dr. Zuly Aparicio Basophils/100 WBC (Bld) 0.5 % Normal 0.2-2.[address] [facility] Comment on above: Performed By: #### C BC ####[facility] [address] [place], [place] [address]Dr. Zuly Aparicio EO # 0.1 103/ul Normal 0.0-0.[address] [facility] Comment on above: Performed By: #### C BC ####[facility] [address] [place], [place] [address]Dr. Zuly Aparicio Eosinophils/100 WBC (Bld) 1.5 % Normal 0.9-7.[address] [facility] Comment on above: Performed By: #### C BC ####[facility] [address] [place], [place] [address]Dr. Zuly Aparicio Erythrocyte distribution width (RBC) [Ratio] 15.8 % Critically high 11.0-15.[address] [facility] Comment on above: Performed By: #### C BC ####[facility] [address] [place], [place] [address]Dr. Zuly Aparicio Hematocrit (Bld) [Volume fraction] 34.1 % Critically low 36.0-48.[address] [facility] Comment on above: Performed By: #### C BC ####[facility] Jr[address] [place], [place] [address]Dr. Zuly Aparicio Hemoglobin (Bld) [Mass/Vol] 10.1 g/dL Critically low 12.0-16.[address] [facility] Comment on above: Performed By: #### C BC ####[facility] [address] [place], [place] [address]Dr. Zuly Aparicio IG # 0.01 10e3/ul Normal 0.00-0.[address] [facility] Comment on above: Performed By: #### C BC ####[facility] [address] [place] [id number]. Zuly Aparicio IG % 0.2 % Normal 0.0-0.5 [facility] Comment on above: Performed By: #### C BC ####[facility] [address] [place] [address]Dr. Zuly Aparicio LYMPH # 1.6 103/ul Normal 1.2-3.8 [facility] Comment on above: Performed By: #### C BC ####[facility] [address] [place] [address]Dr. Zuly Aparicio Lymphocytes/100 WBC (Bld) 39.2 % Normal 20.5-60.0 [facility] Comment on above: Performed By: #### C BC ####[facility] [address] [place] [address]Dr. Zuly Aparicio MANUAL DIFF REQ NO Normal [facility] Comment on above: Performed By: #### C BC ####[facility] [address] [place] [phone]. Lolacuauhtemoc Aparicio MCH (RBC) [Entitic mass] 17.7 pg Critically low 26.7-34.0 [facility] Comment on above: Performed By: #### C BC ####[facility] [address] [place] [phone]. Zuly Aparicio MCHC (RBC) [Mass/Vol] 29.6 g/dL Critically low 29.9-35.2 [facility] Comment on above: Performed By: #### C BC ####[facility] [address] [place] [address]Dr. Zuly Aparicio MCV (RBC) [Entitic vol] 59.7 fL Critically low 81.0-99.[address] [facility] Comment on above: Performed By: #### C BC ####[facility] [address] [place] [address]DrNikia Aparicio MONO # 0.3 103/ul Normal 0.3-0.8 [facility] Comment on above: Performed By: #### C BC ####[facility] [address] [place] [address]Dr. Zuly Aparicio Monocytes/100 WBC (Bld) 6.5 % Normal 1.7-12.0 [facility] Comment on above: Performed By: #### C BC ####[facility] [address] [place] [address]Dr. Zuly Aparicio NEUT # 2.1 103/ul Normal 1.4-6.5 [facility] Comment on above: Performed By: #### C BC ####[facility] [address] [place] [address]Dr. Zuly Aparicio Neutrophils/100 WBC (Bld) 52.1 % Normal 43.0-75.0 [facility] Comment on above: Performed By: #### C BC ####[facility] [address] [place] [address]Dr. Zuly Aparicio Platelet mean volume (Bld) [Entitic vol] 10.0 fL Normal 9.5-13.5 [facility] Comment on above: Performed By: #### C BC ####[facility] [address] [place] [address]Dr. Zuly Aparicio PLT 333 103/ul Normal 150-450 [facility] Comment on above: Performed By: #### C BC ####[facility] [address] [place] [address]Dr. Zuly Aparicio RBC 5.71 106/ul Critically high 4.20-5.40 [facility] Comment on above: Performed By: #### C BC ####[facility] [address] [place] [address]Dr. Zuly Aparicio WBC 4.0 103/ul Normal 4.0-11.[address] [facility] Comment on above: Performed By: #### C BC ####[facility] [address] [place] [phone]. Zuly Aparicio FREE T4on 09-20-2022 Free T4 [Mass/Vol] 1.11 ng/dL Normal 0.76-1.46 [facility] Comment on above: Performed By: #### CHAYITO ASHERRO #### [facility] [address] [address] [address] Zuly CHONGon 09-20-2022 Iron [Mass/Vol] 89.0 ug/dL Normal 50.0-170.0 [facility] Comment on above: Performed By: #### CHAYITO ASHERRO #### [facility] [address] [place] [address] Dr. Zuly Aparicio PROF 14(COMP METB)on 023 Albumin [Mass/Vol] 3.7 g/dL Normal 3.4-5.0 [facility] Comment on above: Performed By: #### CHAYITO ASHERRO #### [facility] [address] [place] [address] Dr. Zuly Aparicio Albumin/Globulin [Mass ratio] 1.0 {ratio} Normal [facility] Comment on above: Performed By: #### CHAYITO ASHERRO #### [facility] [address] [place] [address] Dr. Zuly Aparicio ALP [Catalytic activity/Vol] 63 U/L Normal 46-116 [facility] Comment on above: Performed By: #### CHAYITO ASHERRO #### [facility] [address] [place] [address] Dr. Zuly Aparicio ALT [Catalytic activity/Vol] 50 U/L Normal 14-59 [facility] Comment on above: Performed By: #### CHAYITO ASHERRO #### [facility] [address] [place] [address] Dr. Zuly Aparicio Anion gap [Moles/Vol] 10.4 mmol/L Normal [facility] Comment on above: Performed By: #### CHAYITO ASHERRO #### [facility] [address] [place] [address] Dr. Zuly Aparicio AST [Catalytic activity/Vol] 24 U/L Normal 15-37 [facility] Comment on above: Performed By: #### CHAYITO ASHERRO #### [facility] [address] [address] [address] Zuly Aparicio Bilirubin [Mass/Vol] 0.5 mg/dL Normal 0.2-1.0 [facility] Comment on above: Performed By: #### Roshan HOOPER UMICRO #### [facility] [address] [address] [address] Zuly Aparicio Calcium [Mass/Vol] 8.8 mg/dL Normal 8.5-10.1 [facility] Comment on above: Performed By: #### Roshan HOOPER UMICRO #### [facility] [address] [place] [address] Dr. Zuly Aparicio Chloride [Moles/Vol] 108 mmol/L Critically high 98-107 [facility] Comment on above: Performed By: #### Roshan HOOPER UMICRO #### [facility] [address] [place] [address] Dr. Zuly Aparicio CO2 [Moles/Vol] 27.5 mmol/L Normal 21.0-32.0 [facility] Comment on above: Performed By: #### Roshan HOOPER UMICRO #### [facility] [address] [place] [address] Dr. Zuly Aparicio Creatinine [Mass/Vol] 0.94 mg/dL Normal 0.55-1.02 [facility] Comment on above: Performed By: #### Roshan HOOPER UMICRO #### [facility] [address] [place] [address] Dr. Zuly Aparicio EGFR-AF UGANDAN >60 Normal >=60 [facility] Comment on above: Performed By: #### Roshan HOOPER UMICRO #### [facility] [address] [place] [address] Dr. Zuly Aparicio EGFR-NON AF UGANDAN >60 Normal >=60 [facility] Comment on above: Performed By: #### Roshan HOOPER, UMICRO #### [facility] [address] [place] [address] Dr. Zuly Aparicio Globulin (S) [Mass/Vol] 3.7 g/dL Normal [facility] Comment on above: Performed By: #### JEFERSON ASHER #### [facility] [address] [place] [address] Dr. Zuly Aparicio Glucose [Mass/Vol] 83 mg/dL Normal 74-106 [facility] Comment on above: Performed By: #### JEFERSON ASHER #### [facility] [address] [place] [address] Dr. Zuly Aparicio Potassium [Moles/Vol] 3.9 mmol/L Normal 3.5-5.1 [facility] Comment on above: Performed By: #### CHAYITO ASHERRO #### [facility] [address] [place] [address] Dr. Zuly Aparicio Protein [Mass/Vol] 7.4 g/dL Normal 6.4-8.2 [facility] Comment on above: Performed By: #### JEFERSON ASHER #### [facility] [address] [place] [address] Dr. Zuly Aparicio Sodium [Moles/Vol] 142 mmol/L Normal 136-145 [facility] Comment on above: Performed By: #### JEFERSON ASHER #### [facility] [address] [place] [address] Dr. Zuly Aparicio Urea nitrogen [Mass/Vol] 14.0 mg/dL Normal 7.0-18.0 [facility] Comment on above: Performed By: #### JEFERSON ASHER #### [facility] [address] [place] [address] Dr. Zuly Aparicio Urea nitrogen/Creatinine [Mass ratio] 14.9 mg/mg Normal [facility] Comment on above: Performed By: #### JEFERSON ASHER #### [facility] [address] [place] [address] Dr. Zuly Aparicio TSHon 09-20-2022 TSH 1.491 uIU/mL Normal 0.358-3.740 [facility] Comment on above: Performed By: #### CHAYITO ASHERRO #### [facility] [address] [place], [place] [address] Dr. Zuly Aparicio VC INJ SCL MILTON SMELLER VEINSon 0 09-04-2022 VC INJ SCL MILTON SMELLER VEINS Patient: TORIE ORTIZ Exam Date: 09/04/2022 : 1990 Gender:F Ordering : DR SADI JEWELL M.D. Admission #: [id number] Family : Order #: [id number] CLICK HERE TO VIEW EXAM RADIOLOGY REPORT [...] Technically successful sclerotherapy as described Dictated by: Jose Wood M.D. on 09/04/2022 at 11:51 Approved by: Jose Wood M.D. on 09/04/2022 at 12:[address] [facility] Covid-19 PCR (CVDTBH)on SARS-CoV-2 (COVID-19) RNA BORIS+probe Ql (Unsp spec) Not detected Normal NOT DETECTED [facility] Comment on above: Result Comment: This test is not yet approved or cleared by the [place] FDA. When there are no FDA-approved or cleared tests available, and other criteria are met, FDA can make tests available under an emergency access mechanism called an Emergency Use Authorization (EUA). The EUA for this test is supported by the Care Process Manager of Health and Human Service's (HHS's) declaration [...] SARS-CoV-2. Performed By: #### T SH #### [facility] [address] [place] [address] Dr. Zuly Aparicio INFLUENZA A AND B AGon 08-27 INFLUANEGH SEE BELOW Normal [facility] Comment on above: Result Comment: Nega tive for Flu A protein angiten. Infection due to Flu A cannot be ruled out. Flu A angiten in the sample may be below the detection limit of the test. Performed By: #### T SH #### [facility] [address] [place] [address] Dr. Zuly Aparicio INFLUBNEG SEE BELOW Normal [facility] Comment on above: Result Comment: Nega tive for Flu B protein antigen. Infection due to Flu B cannot be ruled out. Flu B antigen in the sample may be below the detection limit of the test. Performed By: #### T SH #### [facility] [address] [place] [address] Dr. Zuly Aparicio INFLUENZA A AG Negative Normal NEGATIVE SEE COMMENT [facility] Comment on above: Performed By: #### T SH #### [facility] [address] [place] [address] Dr. Zuly Aparicio INFLUENZA B AG Negative Normal NEGATIVE SEE COMMENT [facility] Comment on above: Performed By: #### T SH #### [facility] [address] [place] [address] Dr. Zuly Aparicio SYMPTOMATIC COVID-19 ANTIGEN on 08-27-2022 EUA Statement SEE BELOW Normal [facility] Comment on above: Result Comment: This test [...] sooner. Performed By: #### C VDAGS #### [facility] [address] [place] [address] Dr. Zuly Aparicio SARS-CoV-2 (COVID-19) RNA BORIS+probe Ql (Unsp spec) Negative Normal NEGATIVE [facility] Comment on above: Performed By: #### C VDAGS #### [facility] [address] [place] [address] Dr. Zuly Aparicio XR CHEST 1 Von [...] cardiopulmonary process. Stable chest. Electronically authenticated by: JOSE WOOD Date: 2022-08-27 17:[address] [facility] VC CONSULT FOLLOWUPon 2022 VC CONSULT FOLLOWUP Patient: TORIE ORTIZ Exam Date: 08/21/2022 : 1990 Gender:F Ordering : DR SADI JEWELL M.D. Admission #: [id number] Family : Order #: [id number] CLICK HERE TO VIEW EXAM RADIOLOGY REPORT [...] Jewell MD on 08/21/2022 at 11:18 Normal [facility] VC EXT VENOUS RT LIMITEDon 0 08-21-2022 VC EXT VENOUS RT LIMITED Patient: TORIE ORTIZ Exam Date: 08/21/2022 : 1990 Gender:F Ordering : DR SADI JEWELL M.D. Admission #: [id number] Family : Order #: [id number] CLICK HERE TO VIEW EXAM RADIOLOGY REPORT [...] veins remain *Exam performed in accordance with [facility]UM practice guidelines- Peripheral venous ultrasound, August 20, 2009. CONCLUSION: Post ablation occlusion of treated varicose veins. Dictated by: Sadi Jewell MD on 08/21/2022 at 09:41 Approved by: Sadi Jewell MD on 08/21/2022 at 09:43 [facility] VC INJ FOAM SCLERO W US MLTI on 08-16-2022 VC INJ FOAM SCLERO W US MLTI Patient: TORIE ORTIZ Exam Date: 08/16/2022 : 1990 Gender:F Ordering : DR SADI JEWELL M.D. Admission #: [id number] Family : Order #: [id number] CLICK HERE TO VIEW EXAM RADIOLOGY REPORT [...] with Varithena(r) 2. Intraoperative ultrasound guidance Physician: Jose Wood M.D. Anesthesia: None. Indications for Procedure: [...] days. PERSONNEL: Ketan Haley R.N. Dictated by: Jose Wood M.D. on 08/16/2022 at 11:53 Approved by: Jose Wood M.D. on 08/16/2022 at 11:[address] [facility] CBC W MANUAL DIFFon 05-16-20 ATYPICAL LYMPH # 0.32 103/ul Normal [facility] Comment on above: Performed By: #### T SH #### [facility] [address] [place] [address] Dr. Zuly Aparicio ATYPICAL LYMPH % 3 % Normal [facility] Comment on above: Performed By: #### T SH #### [facility] [address] [place] [address] Dr. Zuly Aparicio BAND # 0.0 103/ul Normal 0.0-0.[address] [facility] Comment on above: Performed By: #### T SH #### [facility] [address] [place] [address] Dr. Zuly Aparicio BAND % 0 % Normal 0-5 [facility] Comment on above: Performed By: #### T SH #### [facility] [address] [place] [address] Dr. Zuly Aparicio BASOM # 0.00 103/ul Normal 0.00-0.10 [facility] Comment on above: Performed By: #### T SH #### [facility] [address] [place] [address] Dr. Zuly Aparicio BASOM % 0.0 % Critically low 0.2-2.0 [facility] Comment on above: Performed By: #### T SH #### [facility] [address] [place] [address] Dr. Zuly Aparicio BLAST # Normal [facility] Comment on above: Performed By: #### T SH #### [facility] [address] [place] [address] Dr. Zuly Aparicio BLAST % Normal [facility] Comment on above: Performed By: #### T SH #### [facility] [address] [place] [address] Dr. Zuly Aparicio CORRECTED WBC Normal 4.0-11.0 [facility] Comment on above: Performed By: #### T SH #### [facility] [address] [place] [address] Dr. Zuly Aparicio EOS # 0.10 103/ul Normal 0.00-0.70 [facility] Comment on above: Performed By: #### T SH #### [facility] [address] [address] [address] Zuly Aparicio EOS% 1.0 % Normal 0.9-7.0 [facility] Comment on above: Performed By: #### T SH #### [facility] [address] [address] [address] Zuly Aparicio HCT 34.3 % Critically low 36.0-48.0 [facility] Comment on above: Performed By: #### T SH #### [facility] [address] [address] [address] Zuly Aparicio HGB 10.6 g/dl Critically low 12.0-16.0 [facility] Comment on above: Performed By: #### T SH #### [facility] [address] [place] [address] Dr. Zuly Aparicio LYMPHM # 0.32 103/ul Critically low 1.20-3.80 [facility] Comment on above: Performed By: #### T SH #### [facility] [address] [address] [address] Zuly Aparicio LYMPHM% 3.0 % Critically low 20.5-60.0 [facility] Comment on above: Performed By: #### T SH #### [facility] [address] [address] [address] Zuly Aparicio MCH 18.2 pg Critically low 26.7-34.0 [facility] Comment on above: Performed By: #### T SH #### [facility] [address] [address] [address] Zuly Aparicio MCHC 30.9 g/dl Normal 29.9-35.2 [facility] Comment on above: Performed By: #### T SH #### [facility] [address] [address] [address] Zuly Aparicio MCV 59.0 fL Critically low 81.0-99.0 [facility] [facility] Comment on above: Performed By: #### T SH #### [facility] [address] [place] [address] Dr. Zuly Aparicio METAMYELOCYTE # Normal [facility] Comment on above: Performed By: #### T SH #### [facility] [address] [place] [address] Dr. Zuly Aparicio METAMYELOCYTE % Normal [facility] Comment on above: Performed By: #### T SH #### [facility] [address] [place] [address] Dr. Zuly Aparicio MICROCYTOSIS 3+ Normal [facility] Comment on above: Performed By: #### T SH #### [facility] [address] [place] [address] Dr. Zuly Aparicio MONOM# 0.32 103/ul Normal 0.30-0.80 [facility] Comment on above: Performed By: #### T SH #### [facility] [address] [place] [address] Dr. Zuly Aparicio MONOM% 3.0 % Normal 1.7-12.0 [facility] Comment on above: Performed By: #### T SH #### [facility] [address] [place] [address] Dr. Zuly Aparicio MPV 10.6 fL Normal 9.5-13.5 [facility] Comment on above: Performed By: #### T SH #### [facility] [address] [place] [address] Dr. Zuly Aparicio MYELOCYTE # Normal [facility] Comment on above: Performed By: #### T SH #### [facility] [address] [place] [address] Dr. Zuly Aparicio MYELOCYTE % Normal [facility] Comment on above: Performed By: #### T SH #### [facility] [address] [place] [address] Dr. Zuly Aparicio NRBC Normal [facility] Comment on above: Performed By: #### T SH #### [facility] [address] [place] [address] Dr. Zuly Aparicio OVALOCYTES SLIGHT Normal [facility] Comment on above: Performed By: #### T SH #### [facility] [address] [address] [address] Zuly Aparicio PLT 290 103/ul Normal 150-[address] [facility] Comment on above: Performed By: #### T SH #### [facility] [id number] Zuly Aparicio RBC 5.81 106/ul Critically high 4.20-5.40 [facility] Comment on above: Performed By: #### T SH #### [facility] [address] [address] [address] Zuly Aparicio RDW 15.4 % Critically high 11.0-15.0 [facility] Comment on above: Performed By: #### T SH #### [facility] [address] [address] [address] Zuly Aparicio SEG # 9.45 103/ul Critically high 1.40-6.50 [facility] Comment on above: Performed By: #### T SH #### [facility] [address] [address] [address] Zuly Aparicio SEG % 90.0 % Critically high 43.0-75.0 [facility] Comment on above: Performed By: #### T SH #### [facility] [address] [address] [address] Zuly Aparicio TOXIC GRANULATION SLIGHT Normal [facility] Comment on above: Performed By: #### T SH #### [facility] [id number] Zuly Aparicio WBC 10.5 103/ul Normal 4.0-11.[address] [facility] Comment on above: Performed By: #### T SH #### [facility] [id number] Zuly Aparicio CULTURE URINEon 05-16-2022 CULTURE URINE Culture Observations : LIGHT GROWTH OF MIXED GENITAL JI. NO POTENTIAL PATHOGENS SEEN. Normal [facility] Comment on above: Performed By: #### U RCX ####[facility] [address] [address]Dr. Zuly Aparicio Covid-19 PCR (CVDTBH)on 04-27 SARS-CoV-2 (COVID-19) RNA BORIS+probe Ql (Unsp spec) Not detected Normal NOT DETECTED [facility] Comment on above: Result Comment: This test is not yet approved or cleared by the [place] FDA. When there are no FDA-approved or cleared tests available, and other criteria are met, FDA can make tests available under an emergency access mechanism called an Emergency Use Authorization (EUA). The EUA for this test is supported by the [place] of Health and Human Service's (HHS's) declaration [...] SARS-CoV-2. Performed By: #### T SH #### [facility] [address] [place] [address] Dr. Zuly Aparicio ER URINE PROFILEon Bilirubin Ql (U) Negative Normal NEGATIVE [facility] Comment on above: Performed By: #### T SH #### [facility] [address] [place] [address] Dr. Zuly Aparicio Clarity (U) CLEAR Normal CLEAR [facility] Comment on above: Performed By: #### T SH #### [facility] [address] [place] [address] Dr. Zuly Aparicio Color (U) YELLOW Normal YELLOW [facility] Comment on above: Performed By: #### T SH #### [facility] [address] [place] [address] Dr. Zuly Aparicio ERUAHD A micrscopic examination will be performed if indicated. Normal [facility] Comment on above: Performed By: #### T SH #### [facility] [address] [place] [address] Dr. Zuly Aparicio Glucose Ql (U) Negative Normal NEGATIVE [facility] Comment on above: Performed By: #### T SH #### [facility] [address] [place] [address] Dr. Zuly Aparicio Hemoglobin Ql (U) Negative Normal NEGATIVE [facility] Comment on above: Performed By: #### T SH #### [facility] [address] [place] [address] Dr. Zuly Aparicio Ketones Ql (U) TRACE Abnormal NEGATIVE [facility] Comment on above: Performed By: #### T SH #### [facility] [address] [place] [address] Dr. Zuly Aparicio LEUKOCYTES TRACE Abnormal NEGATIVE [facility] Comment on above: Performed By: #### T SH #### [facility] [address] [place] [address] Dr. Zuly Aparicio Nitrite Ql (U) Negative Normal NEGATIVE [facility] Comment on above: Performed By: #### T SH #### [facility] [address] [place] [address] Dr. Zuly Aparicio pH (U) 5.5 [pH] Normal 5-9 [facility] Comment on above: Performed By: #### T SH #### [facility] [address] [place] [address] Dr. Zuly Aparicio SPEC GRAVITY 1.020 Normal 1.005-<=1.02 5 [facility] Comment on above: Performed By: #### T SH #### [facility] [address] [place] [address] Dr. Zuly Aparicio UA PROTEIN Negative Normal NEGATIVE/ TRACE [facility] Comment on above: Performed By: #### T SH #### [facility] [address] [place] [address] Dr. Zuly Aparicio UR MICRO IND INDICATED Normal [facility] Comment on above: Performed By: #### T SH #### [facility] [address] [place] [address] Dr. Zuly Aparicio Urobilinogen Qn (U) 1.0 {Isamar'U}/dL Normal 0.2 - 1. 0 [facility] Comment on above: Performed By: #### T SH #### [facility] [address] [place] [address] Dr. Zuly Aparicio INFLUENZA A AND B AGon 05-16 INFLUENZA A AG Negative Normal NEGATIVE SEE COMMENT [facility] Comment on above: Performed By: #### I NFLUAB #### [facility] [address] [address] [address] Zuly Aparicio INFLUENZA B AG Negative Normal NEGATIVE SEE COMMENT [facility] Comment on above: Performed By: #### I NFLUAB #### [facility] [address] [place] [address] Dr. Zuly Aparicio INTERNAL CONTROLS Within Normal Limits Normal Wi thin Normal Limits [facility] Comment on above: Performed By: #### I NFLUAB #### [facility] [address] [place] [address] Dr. Zuly Aparicio PREG HCG QUALon 05-16-2022 , QUAL Negative Normal NEGATIVE [facility] Comment on above: Performed By: #### T SH #### [facility] [address] [address] [address] Zuly Aparicio PROF 14(COMP METB)on 022 Albumin [Mass/Vol] 3.6 g/dL Normal 3.4-5.0 [facility] Comment on above: Performed By: #### C MP #### [facility] [address] [place] [address] Dr. Zuly Aparicio Albumin/Globulin [Mass ratio] 0.9 {ratio} Normal [facility] Comment on above: Performed By: #### C MP #### [facility] [address] [place] [address] Dr. Zuly Aparicio ALP [Catalytic activity/Vol] 88 U/L Normal 46-[address] [facility] Comment on above: Performed By: #### C MP #### [facility] [address] [place] [address] Dr. Zuly Aparicio ALT [Catalytic activity/Vol] 52 U/L Normal 14-59 [facility] Comment on above: Performed By: #### C MP #### [facility] [address] [address] [address] Zuly Aparicio Anion gap [Moles/Vol] 13.4 mmol/L Normal [facility] Comment on above: Performed By: #### C MP #### [facility] [address] [address] [address] Zuly Aparicio AST [Catalytic activity/Vol] 29 U/L Normal 15-37 [facility] Comment on above: Performed By: #### C MP #### [facility] [address] [address] [address] Zuly Aparicio Bilirubin [Mass/Vol] 1.2 mg/dL Critically high 0.2-1.0 [facility] Comment on above: Performed By: #### C MP #### [facility] [address] [place] [address] Dr. Zuly Aparicio Calcium [Mass/Vol] 8.7 mg/dL Normal 8.5-10.1 [facility] Comment on above: Performed By: #### C MP #### [facility] [address] [address] [address] Zuly Aparicio Chloride [Moles/Vol] 101 mmol/L Normal 98-107 [facility] Comment on above: Performed By: #### C MP #### [facility] [address] [address] [address] Zuly Aparicio CO2 [Moles/Vol] 25.5 mmol/L Normal 21.0-32.0 [facility] Comment on above: Performed By: #### C MP #### [facility] [address] [address] [address] Zuly Aparicio Creatinine [Mass/Vol] 1.07 mg/dL Critically high 0.55-1.02 [facility] Comment on above: Performed By: #### C MP #### [facility] [address] [address] [address] Zuly Aparicio EGFR-AF UGANDAN >60 Normal >=60 [facility] Comment on above: Performed By: #### C MP #### [facility] [address] [address] [address] Zuly Aparicio EGFR-NON AF UGANDAN 59 mL/min/1.73m2 Critically low >=60 [facility] Comment on above: Performed By: #### C MP #### [facility] [address] [address] [address] Zuly Aparicio Globulin (S) [Mass/Vol] 4.0 g/dL Normal [facility] Comment on above: Performed By: #### C MP #### [facility] [address] [address] [address] Zuly Aparicoi Glucose [Mass/Vol] 111 mg/dL Critically high 74-106 [facility] Comment on above: Performed By: #### C MP #### [facility] [address] [place] [address] Dr. Zuly Aparicio Potassium [Moles/Vol] 3.9 mmol/L Normal 3.5-5.1 [facility] Comment on above: Performed By: #### C MP #### [facility] [address] [address] [address] Zuly Aparicio Protein [Mass/Vol] 7.6 g/dL Normal 6.4-8.2 [facility] Comment on above: Performed By: #### C MP #### [facility] [address] [address] [address] Zuly Aparicio Sodium [Moles/Vol] 136 mmol/L Normal 136-145 [facility] Comment on above: Performed By: #### C MP #### [facility] [address] [address] [address] Zuly Aparicio Urea nitrogen [Mass/Vol] 11.0 mg/dL Normal 7.0-18.0 [facility] Comment on above: Performed By: #### C MP #### [facility] [address] [address] [address] Zuly Aparicio Urea nitrogen/Creatinine [Mass ratio] 10.3 mg/mg Normal [facility] Comment on above: Performed By: #### C MP #### [facility] [address] [address] [address] Zuly Aparicio STREPT SCREENon 05-16-2022 STREP SCREEN A Positive Abnormal NEGATIVE [facility] Comment on above: Performed By: #### E JEFERSON HOOPER #### [facility] [address] [place] [address] Dr. Zuly Aparicio URINE MICROSCOPIC ONLYon BACTERIA MODERATE Abnormal NONE SEEN [facility] Comment on above: Performed By: #### T SH #### [facility] [address] [place] [address] Dr. Zuly Aparicio Bacteria identified Cx Nom (U) INDICATED Normal [facility] Comment on above: Performed By: #### T SH #### [facility] [address] [place] [address] Dr. Zuly Aparicio CAST NONE SEEN Normal NONE SEEN [facility] Comment on above: Performed By: #### T SH #### [facility] [address] [place] [address] Dr. Zuly Aparicio Crystals LM Nom (Urine sed) NONE SEEN Normal NONE SEEN [facility] Comment on above: Performed By: #### T SH #### [facility] [address] [place] [address] Dr. Zuly Aparicio Epithelial cells LM Ql (Urine sed) MANY Abnormal NONE SEEN /RARE [facility] Comment on above: Performed By: #### T SH #### [facility] [address] [place] [address] Dr. Zuly Aparicio MUCOUS NONE SEEN Normal NONE SEEN [facility] Comment on above: Performed By: #### T SH #### [facility] [address] [place] [address] Dr. Zuly Aparicio RBC 2-5 Abnormal 0-[address] [facility] Comment on above: Performed By: #### T SH #### [facility] [address] [place] [address] Dr. Zuly Aparicio WBC 5-10 Abnormal NONE SEEN [facility] Comment on above: Performed By: #### T SH #### [facility] [address] [place] [address] Dr. Zuly Aparicio XR CHEST 1 Von [...] PAKO JERRY Date: 2022-05-16 05:[address] [facility] AMYLASEon 04-19-2022 Amylase [Catalytic activity/Vol] 41 U/L Normal 25-[address] [facility] Comment on above: Performed By: #### L IPA, ANA #### [facility] [address] [address] [address] Zuly Aparicio CBC AUTO DIFFon 04-19-2022 BASO # 0.0 103/ul Normal 0.0-0.1 [facility] Comment on above: Performed By: #### C BC ####[facility] [address] [address]Dr. Zuly Aparicio Basophils/100 WBC (Bld) 0.4 % Normal 0.2-2.[address] [facility] Comment on above: Performed By: #### C BC ####[facility] [address] [address]Dr. Zuly Aparicio EO # 0.2 103/ul Normal 0.0-0.7 [facility] Comment on above: Performed By: #### C BC ####[facility] [address] [id number]. Zuly Aparicio Eosinophils/100 WBC (Bld) 3.2 % Normal 0.9-7.[address] [facility] Comment on above: Performed By: #### C BC ####[facility] [address] [id number]. Zuly Aparicio Erythrocyte distribution width (RBC) [Ratio] 15.7 % Critically high 11.0-15.0 [facility] Comment on above: Performed By: #### C BC ####[facility] [address] [address]Dr. Zuly Aparicio Hematocrit (Bld) [Volume fraction] 33.1 % Critically low 36.0-48.0 [facility] Comment on above: Performed By: #### C BC ####[facility] [address] [address]DrNikia Aparicio Hemoglobin (Bld) [Mass/Vol] 10.3 g/dL Critically low 12.0-16.0 [facility] Comment on above: Performed By: #### C BC ####[facility] [address] [place], [place] [address]DrNikia Aparicio IG # 0.01 10e3/ul Normal 0.00-0.03 [facility] Comment on above: Performed By: #### C BC ####[facility] [address] [place], [place] [address]DrNikia Aparicio IG % 0.2 % Normal 0.0-0.5 [facility] Comment on above: Performed By: #### C BC ####[facility] [address] [place], [place] [address]DrNikia Aparicio LYMPH # 1.8 103/ul Normal 1.2-3.[address] [facility] Comment on above: Performed By: #### C BC ####[facility] [address] [place], [place] [address]DrNikia Aparicio Lymphocytes/100 WBC (Bld) 34.5 % Normal 20.5-60.[address] [facility] Comment on above: Performed By: #### C BC ####[facility] [address] [place], [place] [address]DrNikia Aparicio MANUAL DIFF REQ NO Normal [facility] Comment on above: Performed By: #### C BC ####[facility] [address] [place], [place] [address]DrNikia Aparicio MCH (RBC) [Entitic mass] 18.5 pg Critically low 26.7-34.[address] [facility] Comment on above: Performed By: #### C BC ####[facility] [address] [place], [place] [address]DrNikia Aparicio MCHC (RBC) [Mass/Vol] 31.1 g/dL Normal 29.9-35.[address] [facility] Comment on above: Performed By: #### C BC ####[facility] [address] [address]DrNikia Aparicio MCV (RBC) [Entitic vol] 59.3 fL Critically low 81.0-99.[address] [facility] Comment on above: Performed By: #### C BC ####[facility] [address] [place], [place] [address]DrNikia Aparicio MONO # 0.3 103/ul Normal 0.3-0.[address] [facility] Comment on above: Performed By: #### C BC ####[facility] [address] [place], [place] [address]DrNikia Aparicio Monocytes/100 WBC (Bld) 5.9 % Normal 1.7-12.[address] [facility] Comment on above: Performed By: #### C BC ####[facility] [address] [place], [place] [address]DrNikia Aparicio NEUT # 2.9 103/ul Normal 1.4-6.[address] [facility] Comment on above: Performed By: #### C BC ####[facility] [address] [place], [place] [address]DrNikia Aparicio Neutrophils/100 WBC (Bld) 55.8 % Normal 43.0-75.[address] [facility] Comment on above: Performed By: #### C BC ####[facility] [address] [place], [place] [address]DrNikia Aparicio Platelet mean volume (Bld) [Entitic vol] 10.1 fL Normal 9.5-13.[address] [facility] Comment on above: Performed By: #### C BC ####[facility] [address] [place], [place] [address]DrNikia Aparicio PLT 341 103/ul Normal 150-[address] [facility] Comment on above: Performed By: #### C BC ####[facility] [address] [place], [place] [address]DrNikia Aparicio RBC 5.58 106/ul Critically high 4.20-5.40 [facility] Comment on above: Performed By: #### C BC ####[facility] [address] [place], [place] [address]Me. Zuly Aparicio WBC 5.3 103/ul Normal 4.0-11.[address] [facility] Comment on above: Performed By: #### C BC ####[facility] [address] [place], [place] [address]My. Zuly Apar[address] CT ABD/PELVIS WO CONon 04-19 [...] appendix is not visualized. Electronically authenticated by: JOSE LILIAM Date: 2022-04-19 21:[address] [facility] ER URINE PROFILEon 2 Bilirubin Ql (U) Negative Normal NEGATIVE [facility] Comment on above: Performed By: #### E RUR, PREGU ####[facility] [address] [address]Dr. Lolacuauhtemoc Aparicio Clarity (U) CLEAR Normal CLEAR [facility] Comment on above: Performed By: #### E RUR, PREGU ####[facility] [address] [place], [place] [address]Dr. Lolalan Aparicio Color (U) LT. YELLOW Normal YELLOW [facility] Comment on above: Performed By: #### E RUR, PREGU ####[facility] [address] [place], [place] [address]Dr. Zuly Aparicio ERUAHD A micrscopic examination will be performed if indicated. Normal [facility] Comment on above: Performed By: #### E RUR, PREGU ####[facility] [address] [place], [place] [address]Dr. Yilan Aparicio Glucose Ql (U) Negative Normal NEGATIVE [facility] Comment on above: Performed By: #### E RUR, PREGU ####[facility] [address] [place], [place] [address]Dr. Yilan Aparicio Hemoglobin Ql (U) Negative Normal NEGATIVE [facility] Comment on above: Performed By: #### E RUR, PREGU ####[facility] [address] [address]Dr. Yilan Aparicio Ketones Ql (U) Negative Normal NEGATIVE [facility] Comment on above: Performed By: #### E RUR, PREGU ####[facility] [address] [place], [place] [address]Dr. Yilan Aparicio LEUKOCYTES Negative Normal NEGATIVE [facility] Comment on above: Performed By: #### E RUR, PREGU ####[facility] [address] [address]Dr. Zuly Aparicio Nitrite Ql (U) Negative Normal NEGATIVE [facility] Comment on above: Performed By: #### Roshan RUR, PREGU ####[facility] [address] [address]Dr. Zuly Aparicio pH (U) 6.0 [pH] Normal 5-[address] [facility] Comment on above: Performed By: #### Roshan RUR, PREGU ####[facility] [address] [address]Dr. Zuly Aparicio SPEC GRAVITY 1.010 Normal 1.005-<=1.02 5 [facility] Comment on above: Performed By: #### Roshan HOOPER, PREGU ####[facility] [address] [place], [place] [address]Dr. Zuly Aparicio UA PROTEIN Negative Normal NEGATIVE/ TRACE [facility] Comment on above: Performed By: #### Roshan HOOPER, PREGU ####[facility] [address] [place], [place] [address]Dr. Zuly Aparicio UR MICRO IND NOT INDICATED Normal [facility] Comment on above: Performed By: #### Roshan HOOPER, PREGU ####[facility] [address] [place], [place] [address]Dr. Zuly Aparicio Urobilinogen Qn (U) 0.2 {Isamar'U}/dL Normal 0.2 - 1. [address] [facility] Comment on above: Performed By: #### Roshan HOOPER, PREGU ####[facility] [address] [place], [place] [address]Dr. Zuly Aparicio LIPASEon 04-19-2022 Lipase [Catalytic activity/Vol] 161.0 U/L Normal 73.0-393.[address] [facility] Comment on above: Performed By: #### ANA SPICER #### [facility] [address] [place] [address] Dr. Zuly Aparicio URon 04-19-2022 , QUAL Negative Normal NEGATIVE [facility] Comment on above: Performed By: #### Roshan RUR, PREGU ####[facility] [address] [address]Dr. Zuly Aparicio PROF 14(COMP METB)on 04-19- 022 Albumin [Mass/Vol] 3.9 g/dL Normal 3.4-5.0 [facility] Comment on above: Performed By: #### T SH #### [facility] [address] [address] [address] Zuly Aparicio Albumin/Globulin [Mass ratio] 1.1 {ratio} Normal [facility] Comment on above: Performed By: #### T SH #### [facility] [address] [address] [address] Zuly Aparicio ALP [Catalytic activity/Vol] 69 U/L Normal 46-116 [facility] Comment on above: Performed By: #### T SH #### [facility] [address] [place] [address] Dr. Zuly Aparicio ALT [Catalytic activity/Vol] 46 U/L Normal 14-59 [facility] Comment on above: Performed By: #### T SH #### [facility] [address] [place] [address] Dr. Zuly Aparicio Anion gap [Moles/Vol] 12.1 mmol/L Normal [facility] Comment on above: Performed By: #### T SH #### [facility] [address] [place] [address] Dr. Zuly Aparicio AST [Catalytic activity/Vol] 24 U/L Normal 15-37 [facility] Comment on above: Performed By: #### T SH #### [facility] [address] [place] [address] Dr. Zuly Aparicio Bilirubin [Mass/Vol] 0.5 mg/dL Normal 0.2-1.0 [facility] Comment on above: Performed By: #### T SH #### [facility] [address] [place] [address] Dr. Zuly Aparicio Calcium [Mass/Vol] 8.7 mg/dL Normal 8.5-10.1 [facility] Comment on above: Performed By: #### T SH #### [facility] [address] [address] [address] Zuly Aparicio Chloride [Moles/Vol] 106 mmol/L Normal 98-107 [facility] Comment on above: Performed By: #### T SH #### [facility] [address] [place] [address] Dr. Zuly Aparicio CO2 [Moles/Vol] 25.4 mmol/L Normal 21.0-32.0 [facility] Comment on above: Performed By: #### T SH #### [facility] [address] [place] [address] Dr. Zuly Aparicio Creatinine [Mass/Vol] 1.11 mg/dL Critically high 0.55-1.02 [facility] Comment on above: Performed By: #### T SH #### [facility] [address] [place] [address] Dr. Zuly Aparicio EGFR-AF UGANDAN >60 Normal >=60 [facility] Comment on above: Performed By: #### T SH #### [facility] [address] [place] [address] Dr. Zuly Aparicio EGFR-NON AF UGANDAN 57 mL/min/1.73m2 Critically low >=60 [facility] Comment on above: Performed By: #### T SH #### [facility] [address] [place] [address] Dr. Zuly Aparicio Globulin (S) [Mass/Vol] 3.5 g/dL Normal [facility] Comment on above: Performed By: #### T SH #### [facility] [address] [place] [address] Dr. Zuly Aparicio Glucose [Mass/Vol] 96 mg/dL Normal 74-106 [facility] Comment on above: Performed By: #### T SH #### [facility] [address] [place] [address] Dr. Zuly Aparicio Potassium [Moles/Vol] 3.5 mmol/L Normal 3.5-5.1 [facility] Comment on above: Performed By: #### T SH #### [facility] [address] [place] [address] Dr. Zuly Aparicio Protein [Mass/Vol] 7.4 g/dL Normal 6.4-8.2 [facility] Comment on above: Performed By: #### T SH #### [facility] [address] [place] [address] Dr. Zuly Aparicio Sodium [Moles/Vol] 140 mmol/L Normal 136-145 [facility] Comment on above: Performed By: #### T SH #### [facility] [address] [place] [address] Dr. Zuly Aparicio Urea nitrogen [Mass/Vol] 12.0 mg/dL Normal 7.0-18.0 [facility] Comment on above: Performed By: #### T SH #### [facility] [address] [place] [address] Dr. Zuly Aparicio Urea nitrogen/Creatinine [Mass ratio] 10.8 mg/mg Normal [facility] Comment on above: Performed By: #### T SH #### [facility] [address] [place] [address] Dr. Zuly Aparicio CBC AUTO DIFFon 12-20-2021 BASO # 0.0 103/ul Normal 0.0-0.1 [facility] Comment on above: Performed By: #### T SH #### [facility] [address] [place] [address] Dr. Zuly Aparicio Basophils/100 WBC (Bld) 0.1 % Critically low 0.2-2.0 [facility] Comment on above: Performed By: #### T SH #### [facility] [address] [place] [address] Dr. Zuly Aparicio EO # 0.1 103/ul Normal 0.0-0.7 [facility] Comment on above: Performed By: #### T SH #### [facility] [address] [place] [address] Dr. Zuly Aparicio Eosinophils/100 WBC (Bld) 1.1 % Normal 0.9-7.0 [facility] Comment on above: Performed By: #### T SH #### [facility] [address] [place] [address] Dr. Zuly Aparicio Erythrocyte distribution width (RBC) [Ratio] 15.9 % Critically high 11.0-15.0 [facility] Comment on above: Performed By: #### T SH #### [facility] [address] [place] [address] Dr. Zuly Aparicio Hematocrit (Bld) [Volume fraction] 35.2 % Critically low 36.0-48.0 [facility] Comment on above: Performed By: #### T SH #### [facility] [address] [place] [address] Dr. Zuly Aparicio Hemoglobin (Bld) [Mass/Vol] 10.9 g/dL Critically low 12.0-16.0 [facility] Comment on above: Performed By: #### T SH #### [facility] [address] [place] [address] Dr. Zuly Aparicio IG # 0.02 10e3/ul Normal 0.00-0.03 [facility] Comment on above: Performed By: #### T SH #### [facility] [address] [place] [address] Dr. Zuly Aparicio IG % 0.3 % Normal 0.0-0.5 [facility] Comment on above: Performed By: #### T SH #### [facility] [address] [place] [address] Dr. Zuly Aparicio LYMPH # 2.0 103/ul Normal 1.2-3.8 [facility] Comment on above: Performed By: #### T SH #### [facility] [address] [place] [address] Dr. Zuly Aparicio Lymphocytes/100 WBC (Bld) 28.0 % Normal 20.5-60.0 [facility] Comment on above: Performed By: #### T SH #### [facility] [address] [place] [address] Dr. Zuly Aparicio MANUAL DIFF REQ NO Normal [facility] Comment on above: Performed By: #### T SH #### [facility] [address] [place] [address] Dr. Zuly Aparicio MCH (RBC) [Entitic mass] 18.4 pg Critically low 26.7-34.0 [facility] Comment on above: Performed By: #### T SH #### [facility] [address] [place] [address] Dr. Zuly Aparicio MCHC (RBC) [Mass/Vol] 31.0 g/dL Normal 29.9-35.[address] [facility] Comment on above: Performed By: #### T SH #### [facility] [address] [place] [address] Dr. Zuly Aparicio MCV (RBC) [Entitic vol] 59.3 fL Critically low 81.0-99.0 [facility] Comment on above: Performed By: #### T SH #### [facility] [address] [place] [address] Dr. Zuly Aparicio MONO # 0.4 103/ul Normal 0.3-0.8 [facility] Comment on above: Performed By: #### T SH #### [facility] [address] [place] [address] Dr. Zuly Aparicio Monocytes/100 WBC (Bld) 4.8 % Normal 1.7-12.0 [facility] Comment on above: Performed By: #### T SH #### [facility] [address] [place] [address] Dr. Zuly Aparicio NEUT # 4.7 103/ul Normal 1.4-6.[address] [facility] Comment on above: Performed By: #### T SH #### [facility] [address] [place] [address] Dr. Zuly Aparicio Neutrophils/100 WBC (Bld) 65.7 % Normal 43.0-75.[address] [facility] Comment on above: Performed By: #### T SH #### [facility] [address] [place] [address] Dr. Zuly Aparicio Platelet mean volume (Bld) [Entitic vol] 10.2 fL Normal 9.5-13.[address] [facility] Comment on above: Performed By: #### T SH #### [facility] [address] [place] [address] Dr. Zuly Aparicio PLT 338 103/ul Normal 150-450 [facility] Comment on above: Performed By: #### T #### [facility] [address] [place], [place] [address] Dr. Zuly Aparicio RBC 5.94 106/ul Critically high 4.20-5.40 [facility] Comment on above: Performed By: #### T SH #### [facility] [address] [place], [place] [address] Dr. Zuly Aparicio WBC 7.2 103/ul Normal 4.0-11.0 [facility] Comment on above: Performed By: #### T #### [facility] [address] [place], [place] [address] HEAD WO CONon [...] LEROY PRETTY Date: 2021-12-20 21:[address] [facility] CULTURE URINEon 12-20-2021 CULTURE URINE Culture Observations : LIGHT GROWTH OF MIXED GENITAL JI. NO POTENTIAL PATHOGENS SEEN. Normal [facility] Comment on above: Performed By: #### U RCX ####[facility] [id number] [address]Dr. Zuly Aparicio ER URINE PROFILEon 2 Bilirubin Ql (U) Negative Normal NEGATIVE [facility] Comment on above: Performed By: #### Roshan HOOPER UMICRO #### [facility] [address] [place] [address] Dr. Zuly Aparicio Clarity (U) CLEAR Normal CLEAR [facility] Comment on above: Performed By: #### Roshan HOOPER UMICRO #### [facility] [address] [place] [address] Dr. Zuly Aparicio Color (U) LT. YELLOW Normal YELLOW [facility] Comment on above: Performed By: #### Roshan HOOPER UMICRO #### [facility] [address] [place] [address] Dr. Zuly JUDD A micrscopic examination will be performed if indicated. Normal [facility] Comment on above: Performed By: #### Roshan HOOPER UMICRO #### [facility] [address] [place] [address] Dr. Zuly Aparicio Glucose Ql (U) Negative Normal NEGATIVE [facility] Comment on above: Performed By: #### Roshan HOOPER UMICRO #### [facility] [address] [place] [address] Dr. Zuly Aparicio Hemoglobin Ql (U) LARGE Abnormal NEGATIVE [facility] Comment on above: Performed By: #### Roshan HOOPER UMICRO #### [facility] [address] [place] [address] Dr. Zuly Aparicio Ketones Ql (U) Negative Normal NEGATIVE [facility] Comment on above: Performed By: #### Roshan HOOPER UMICRO #### [facility] [address] [place] [address] Dr. Zuly Aparicio LEUKOCYTES Negative Normal NEGATIVE [facility] Comment on above: Performed By: #### Roshan HOOPER UMICRO #### [facility] [address] [place] [address] Dr. Zuly Aparicio Nitrite Ql (U) Negative Normal NEGATIVE [facility] Comment on above: Performed By: #### Roshan HOOPER UMICRO #### [facility] [address] [place] [address] Dr. Zuly Aparicio pH (U) 6.0 [pH] Normal 5-9 [facility] Comment on above: Performed By: #### Roshan HOOPER UMICRO #### [facility] [address] [place] [address] Dr. Zuly Aparicio SPEC GRAVITY 1.015 Normal 1.005-<=1.02 5 [facility] Comment on above: Performed By: #### Roshan HOOPER UMICRO #### [facility] [address] [place] [address] Dr. Zuly Aparicio UA PROTEIN Negative Normal NEGATIVE/ TRACE [facility] Comment on above: Performed By: #### TASHA ASHERICRO #### [facility] [address] [place] [address] Dr. Zuly Aparicio UR MICRO IND INDICATED Normal [facility] Comment on above: Performed By: #### Roshan HOOPER UMICRO #### [facility] [address] [place] [address] Dr. Zuly Aparicio Urobilinogen Qn (U) 1.0 {Isamar'U}/dL Normal 0.2 - 1. 0 [facility] Comment on above: Performed By: #### Roshan HOOPER UMICRO #### [facility] [address] [place] [address] Dr. Zuly Aparicio PROF 14(COMP METB)on 022 Albumin [Mass/Vol] 4.1 g/dL Normal 3.4-5.0 [facility] Comment on above: Performed By: #### T SH #### [facility] [address] [place] [address] Dr. Zuly Aparicio Albumin/Globulin [Mass ratio] 1.1 {ratio} Normal [facility] Comment on above: Performed By: #### T SH #### [facility] [address] [place] [address] Dr. Zuly Aparicio ALP [Catalytic activity/Vol] 60 U/L Normal 46-116 [facility] Comment on above: Performed By: #### T SH #### [facility] [address] [place] [address] Dr. Zuly Aparicio ALT [Catalytic activity/Vol] 52 U/L Normal 14-59 [facility] Comment on above: Performed By: #### T SH #### [facility] [address] [place] [address] Dr. Zuly Aparicio Anion gap [Moles/Vol] 11.4 mmol/L Normal [facility] Comment on above: Performed By: #### T SH #### [facility] [address] [place] [address] Dr. Zuly Aparicio AST [Catalytic activity/Vol] 25 U/L Normal 15-37 [facility] Comment on above: Performed By: #### T SH #### [facility] [address] [place] [address] Dr. Zuly Aparicio Bilirubin [Mass/Vol] 0.4 mg/dL Normal 0.2-1.0 [facility] Comment on above: Performed By: #### T SH #### [facility] [address] [place] [address] Dr. Zuly Aparicio Calcium [Mass/Vol] 8.7 mg/dL Normal 8.5-10.1 [facility] Comment on above: Performed By: #### T SH #### [facility] [address] [place] [address] Dr. Zuly Aparicio Chloride [Moles/Vol] 105 mmol/L Normal 98-107 [facility] Comment on above: Performed By: #### T SH #### [facility] [address] [place] [address] Dr. Zuly Aparicio CO2 [Moles/Vol] 26.3 mmol/L Normal 21.0-32.0 [facility] Comment on above: Performed By: #### T SH #### [facility] [address] [place] [address] Dr. Zuly Aparicio Creatinine [Mass/Vol] 1.06 mg/dL Critically high 0.55-1.02 [facility] Comment on above: Performed By: #### T SH #### [facility] [address] [address] [address] Zuly Aparicio EGFR-AF UGANDAN >60 Normal >=60 [facility] Comment on above: Performed By: #### T SH #### [facility] [address] [place] [address] Dr. Zuly Aparicio EGFR-NON AF UGANDAN =60 Normal >=[address] [facility] Comment on above: Performed By: #### T SH #### [facility] [address] [address] [address] Zuly Aparicio Globulin (S) [Mass/Vol] 3.6 g/dL Normal [facility] Comment on above: Performed By: #### T SH #### [facility] [address] [place] [address] Dr. Zuly Aparicio Glucose [Mass/Vol] 99 mg/dL Normal 74-106 [facility] Comment on above: Performed By: #### T SH #### [facility] [address] [place] [address] Dr. Zuly Aparicio Potassium [Moles/Vol] 3.7 mmol/L Normal 3.5-5.[address] [facility] Comment on above: Performed By: #### T SH #### [facility] [address] [place] [address] Dr. Zuly Aparicio Protein [Mass/Vol] 7.7 g/dL Normal 6.4-8.2 [facility] Comment on above: Performed By: #### T SH #### [facility] [address] [place] [address] Dr. Zuly Aparicio Sodium [Moles/Vol] 139 mmol/L Normal 136-145 [facility] Comment on above: Performed By: #### T SH #### [facility] [address] [place] [address] Dr. Zuly Aparicio Urea nitrogen [Mass/Vol] 17.0 mg/dL Normal 7.0-18.0 [facility] Comment on above: Performed By: #### T SH #### [facility] [address] [place] [address] Dr. Zuly Aparicio Urea nitrogen/Creatinine [Mass ratio] 16.0 mg/mg Normal [facility] Comment on above: Performed By: #### T #### [facility] [address] [place] [address] Dr. Zuly Aparicio TSHon 12-20-2021 TSH 3.279 uIU/mL Normal 0.358-3.740 [facility] Comment on above: Performed By: #### T #### [facility] [address] [place] [address] Dr. Zuly Aparicio URINE MICROSCOPIC ONLYon BACTERIA SMALL Abnormal NONE SEEN [facility] Comment on above: Performed By: #### Roshan HOOPER UMICRO #### [facility] [address] [place] [address] Dr. Zuly Aparicio Bacteria identified Cx Nom (U) INDICATED Normal [facility] Comment on above: Performed By: #### CHAYITO ASHERRO #### [facility] [address] [place] [address] Dr. Zuly Aparicio CAST NONE SEEN Normal NONE SEEN [facility] Comment on above: Performed By: #### Roshan HOOPER UMICRO #### [facility] [address] [place] [address] Dr. Zuly Aparicio Crystals LM Nom (Urine sed) NONE SEEN Normal NONE SEEN [facility] Comment on above: Performed By: #### Roshan HOOPER UMICRO #### [facility] [address] [place] [address] Dr. Zuly Aparicio Epithelial cells LM Ql (Urine sed) MANY Abnormal NONE SEEN /RARE [facility] Comment on above: Performed By: #### Roshan HOOPER UMICRO #### [facility] [address] [place] [address] Dr. Zuly Aparicio MUCOUS NONE SEEN Normal NONE SEEN [facility] Comment on above: Performed By: #### Roshan HOOPER UMICRO #### [facility] [address] [place] [address] Dr. Zuly Aparicio RBC 0-2 Normal 0-2 [facility] Comment on above: Performed By: #### JEFERSON ASHER #### [facility] [address] [place], [place] [address] Dr. Zuly Aparicio WBC 2-5 Abnormal NONE SEEN [facility] Comment on above: Performed By: #### Roshan JEFERSON HOOPER #### [facility] [address] [place], [place] [address] Dr. Zuly Aparicio XR CHEST 1 Von [...] LUDY GARCIA Date: 2021-12-20 21:[address] [facility] Coding Summary.on 12-13-2021 Coding Summary. CD:[id number] G h0bWw+PGhlYWQ+BT5IVED xG17jfERonG3XO1nVZJ6A KJZYMADWBS0DAF0lsGD7N HdbH5RxkiJc HmshcRWsJZ34COs0JVB6v SisDZsrnV1rpTVkC2g2Cw CwMS98iC07GMsuVRZeUjC 3LjZpbjsgbWFy H3tyEhRkgZSdJsf+PHRhY mxlIHdpZHRoPScxMDAlJy NrtNnfMX1tAv7kKKApFQM vbGxhcHNlOiBj m5hnTGLlUHfvIG1xhLkzM 7OtmCW9WYQwj6u4Qm39eP I+GEAwAWG9hFnaXItlc94 9PvCma4sqJPJ7 bYXnLTgcTOQ2O72qf7I0V YFoSXVmFPY0sQX0nM6qdY clnjsaX6IqwMFfQwB5ULE 8nAAdoM3dmBwg dfehvR8uBnb+G41LBL8MR CHIGM4XErm1U9IyMhuxrI I+XP61EBTbJR40hCYrfCU oq8teiCk9DsJl SIRqVIM5nUktMRxkr8QmX LXnQ99itUFop4U1PHQaxS urzJKvSvNyaZO2uT5lWIa vurxdl7hgouzp Ruikq8ooxc63wY42T85uK QwzTJSoBTI9UFExAPEgyV gxec3tgL9iGm0+ASpee7x br7lwlOz7FlXs JRRiqeDyqLzjWDF7p4InT v92W6VgbDdza9ZnVjt9of 17kRPna2D7uAA9LFawPFH vkF4yOOgyFxO7 RTNaPdDwqX45qKVpFRhiJ j1cnGkaoWgzJQ9rXGDnvf qfQZZjoI4yLCAvmUDlfIk xQL8tAKUwhhlp l607ZwJsOCP5LVVlyRDqZ 7TfvN6aVyNmREZjUXKeE5 AkyMCkKIchV257QQzoWqW 9KFDojwXyI7Ae MPNcoQmlIrS6x5A7Iv0Zl 7LroqypEPM1PFigGPF7Rx YfYpNfCcX9X7NgPih7BCD bsVifDB2wE9Rn OWFsblqnzzlmsQO8IMKmM DYjwD12mZFdBWakDw0od8 U8u242FANrAZVdvU47Nz4 udDogMTBwdCBU oT9ucakes8jwtblmGaTsC OOuCNb5GXr5ADPigWoqOu VlVTG2UcA7TVL0yJYvhV0 bzJufxleslN3c Oyc+S46hdB9uJRN0XQG3j fewIAMpevPwAI90WG19Q9 RyPjwvdGFibGU+PGRpdiB evUpsCU3jSgLc t1zoq0DvYHfhS2RsCHUfH PxqGep9VUGwATU5uBO1dR 3cHLSbRBjpr5U1mDA8Z5I kkiMiom5bp1ak HGWrJGkxI62doPNxg2O0O MHxrHT8WJPgeGywDzVllS 93Oyc+DRQulUpnj9FmTvt rx1ghq1oldIo7 PqOcFIXtsvEmxLvhXEU7r 7TpSb52A91qFPokPYMqYM GzSWNnQWYcoKxhac6ueV3 wIi8+PGNvbCB3 yQS7jM7qQGRvWjK2FJinJ 499WtXzsHYfThewi8ydr5 twmMx8BkNfOOLsyoKlaLh pRKK6r5BwVb53 T09oKKakEQZzVFQaKQAfO RAuqLdqjg0uhL6nSa1+PC 7vl3azpv14dF81aER+PHR zAJE0fJgaVRnv NNRljD1rWMmpHsC2PUPaN nJebU76bUEyUYztUk0yyS xrnJomKB4mELNlfosts63 3MrPqv4ucQWIm hJNxLNtpZFV9W00un8O5V XDiDOBjEWG3vNF4wA2pkB lnbjogbGVmdDsgdmVydGl sCWulOIigD270 IHRvcDsnPlBhdGllbnQgT vCgTVn2R0KsTcp1CAEdeO goFQ0raJRfOYdiRl2wyYk uuSaeAP7sYCKd hhldt444UbMur1ccSIFsn CDdVDahUND6Z56oe8V4EE HpLSAwJPN8tTN7nN6ykPz nbjogbGVmdDsg ovGkxJjhFFxsSEjkE688Z HRvcDsnPkJpcnRoIERhdG Y3VC92GF27wCRop4J5nJA 4M4DmKOSvuowz apscnNN5WJZzNFIsdC36N m6xgJeaCy7rRXYtHPP4WF PluEIkC9ZtsL4pOoTkKWZ sHIUvZ5VyuBGl UJazX910TJelDgZ5JUUyt mHkP7HeZKLpiOluPkD1v1 T5Cw5ZM0F1NM62WZ92bWE mm3J9aWE9E0Sc BNExlpawwiqhyRP6CMYoL KAcdY19On7fsTkgLo7wXM BqYTJ8BBYkeURuQ0BeaX8 yOiAjMDAwMDAw P7FrgBJmYKrdG073HEckG dM8WFPoofEfC9FcPTJwfQ aiTnA2j4V5Zo6VVHz8AU9 9VB41gLWlo4J7 oQF4F2RjSAJspjjxlbqrl MW6KQFvZNDdxZ03Lv8sxJ xlEl0fDIPqZIW2BWCicTT zK6OanO9aLcRt UYGfWQHvM1YdpSOqORyrV 429YQwxVgU2BSQhpqQvA4 JeFTKckVhzSwZ4e0D8Rv1 RBGYsXC32OIO3 yPJ1DR18GH55H8ApQyjaq GFibGU+PHRhYmxlIHdpZH RoPScxMDAlJyBzdHlsZT0 rZx9jLTZnUXOi iTpqoCCeEtClp2ngMYUmN MjuBJ0atAezH1KwnKY4NC Err7j8Hn08H38eI9JeeQX +JYJbbLG0fEO7 yF0mFaEfLnQ0RQquR518E bTksBFzIzkgw9ypi3aqoO j0PkG9FJAxkvYkgJglGGS 2l1RwBy12W26o IHdpZHRoPSIxNSUiIHZhb Uwtrj2idU2jNh7+PGNvbC M7gRW1tW2mAoNcHgJ0WSq cO923CeJtnNYf Spixc8jzo1bmfDm2NwLeG HAnedIxoTivUXB4d6SsIc 64K6XebGcux8SbNae1sd9 9iVBnx0W6vZU9 E5WpKYYpagwruJFirYznU Y1sKUIghlqqOCMgeT1pWB MvX3n3DoCiOvQ8EQczN8O asyI6YSTeiVSf KOvwOPK3W47gw8J6BTIkH WPiQLA6tJH9oI9vsGhcpq ogbGVmdDsgdmVydGljYWw sQEpkW945EOSv nTglOGOqeZ7jXCZdwDHrv ZqsCA7oNUGuaoabHkfLGo RTRVksIENIRUxTRVkgUjw vdGQ+PHRkIHN0 eIzuNRsoRFJelT4oBUCqA 1f8LmQmHbK2JDmyG2HiKT GnwtgmSe26dR9lMgJpTyS 0OHuyY1VbrzA3 TXRdjFNoXOjdXAV1V47ui 8V1KGLiWIYoEXB3hPO1pA 1hbGlnbjogbGVmdDsgdmV ydGljYWwtYWxp N055VQOcbNqfLpDcDvV9Y bP4KGA0U7KhRjh2JKBsqE tqBI8nfWUzURtzEi3gnDo bwNnyAT8zGMZg iyndWJWzsD9yDKRfnQJbr XniNW9wMPXiqrxwy494De GfUEQ0OTWdjPFvV9GpcQ9 yOiAjMDAwMDAw B6KatQDsVSoqX930BDppC kP7ACOinmUhR9QkTDOixC wkMeW6c7A7Or2eXsDOJDT yczwvdGQ+PHRk GGA3iNbjIYnwHLQgcD7oF GYuD1s5VqBuUlO0FUjwU0 KaFZVwjpijOw39kK1cUgZ yLdL7YLocY9Vo ovW4DPXltWVtDGcwRHR0J 34hf7U4NMXxBCMeAFC4eW K0rD5qpAzllberwJTreBu gdmVydGljYWwt DIobV749HUJjuDjwTjVyn WFsZTwvdGQ+WTIdYUI4dD yvQEvfWDAalQ4nPRFxA6b 1JtCoTmD3IIbn N0GyWXDnrfqmAz86cG7vU zAzCjF7FEgyL6BjquM1OL RbgOSlDFspBYK4H04sq8N 8FKDyZMOxZZB9 iNU8zO2dmAjkpmgjgWNvn DsgdmVydGljYWwtYWxpZ2 62FCDhdRkrKyXwOXDmBL0 jeTwvdGQ+PC90 yi85F0AhHkshTtc2PYMcO EQ0uLT6qB2sXIVdFIvni1 Y4zGL0Z6OfbeRdsl2br6t jNQKtMLxfK77r nAMlz7C2HXGqiEQ8SXGhx CfhOnXgwQ29Agc+PGNvbG ylo6QxKtqou5nlm8zqrHr 9IjMwJSIgdmFs mLfdSPM5g1TnDl29S72hB HdpZHRoPSIzMCUiIHZhbG eqon8cxU5lNn3+PGNvbCB 2ePC0wT6xXmQk HeI5KYmsD333AjCquLIuV qovp5gvd8nlwLw2HcLpFK YoruRaoVxqLHZ3n1HnUk9 0L9DxfTemt7Wt Bam1nm80tTSsc4H9vIH6X 3BhZGRpbmctbGVmdDogMC 4fIIUxdelhWWDzyH2pVDD rA0f4FbUnDqV5 MEwhO7EupgI9TXSoiYLlN QUsxKUNuR8xtvwln3hima tjJkEdTLOvTJi9NKr8ALT saWduOiBsZWZ0 TyR9OJA0lYXxxC0lsLwvi gveiW3gWzo+TOj9t4lslI ScAS7kbTY4RO19CE08vGH is1G8kND6E3Hy NEUtipbhjscraKS9NLTrS PRytF30Ci0lsUkvIk5uPQ UgDJX2VZPwgSSeN9ImbL9 yOiAjMDAwMDAw V1LotAYmTMdaW979XCjbZ tE6QGTvvcTvQ2VoZNVokN qjXfR2e5W9Ea8IZT39JB5 1KS71sPWqf2F6 kIN7F6JoZSGkebdhowlsm MW0DXZlUQSmoJ80Px4xvH rlHw6xXLFoEQR0YHGxgTS gH9EwmP7fWjLt HZIoGZZsP3GyeJUzBXzrB 609VJsgTvC3ZHMjxcQqT9 CrQPRorYdkRiW1q4Q8Pa5 BFc32XI30CO29 kOHzq4B1nRS6E6UgMATvq nmvzmbjsUT5TQEyOREyiL 78Hm1mnWbtSu3qQSWfXVM 8IWZjwFHmV3Nn iR0oPuPwGQLpNTWeD8Vex BLtDEcvL315BQlzZdM1SP JxuiVrH0AaWWEkdGgdTjI 7s6O4Ex2BBJqw ctc9J4ZyAhikkFJ+PC90Y OLjTY39oRAwyYUns0gatG w6OkRmXNDwKCH3fSocXEk rs3YkFKRsG46l bGFw (more content not included)... Normal [facility] Path. Reviewon 12-11-2021 Path Review Microcytic and hypochromic anemia. Clinical correlation and iron studies are recommended to determine etiology as clinically indicated. Invalid Interpretation Code [facility] Comment on above: Order Comment: Order Added by Discern Expert. Performed By: #### 2 832094, 33689313, 09747575, 6097542, 06986761, 87471901, 8066267 #### [facility] [address] [place] [address] [place] [address] Auto Diffon 12-10-2021 Basophils/100 WBC (Bld) 0.2 % Normal 0.0-2.0 [facility] Comment on above: Order Comment: Order Added by Discern Expert. Performed By: #### 2 728308, 11886387, 81109624, 0472484, 05982682, 44665902, 8540461 #### [facility] [address] [place] [address] Basophils/Leukocytes Auto (Bld) [Pure # fraction] 0.0 E9/L Normal 0.0-0.2 [facility] Comment on above: Order Comment: Order Added by Discern Expert. Performed By: #### 2 025832, 44604343, 58290954, 9541312, 87816003, 95367646, 1877856 #### [facility] [address] [place] [address] Eosinophils/100 WBC (Bld) 1.3 % Normal 0.0-8.0 [facility] Comment on above: Order Comment: Order Added by Discern Expert. Performed By: #### 2 263145, 19525312, 78192651, 0835051, 30897065, 73846663, 7718882 #### [facility] [address] [place] [address] Eosinophils/Leukocyte s Auto (Bld) [Pure # fraction] 0.1 E9/L Normal 0.0-0.5 [facility] Comment on above: Order Comment: Order Added by Discern Expert. Performed By: #### 2 079175, 20265924, 63073785, 0457743, 39243671, 36683744, 6119611 #### [facility] [address] [place] [address] 28733 Lymphocytes/100 WBC (Bld) 30.3 % Normal 14.0-50.0 [facility] Comment on above: Order Comment: Order Added by Discern Expert. Performed By: #### 2 331603, 63392598, 20016678, 6213994, 76914558, 45350397, 5658646 #### [facility] [address] [place] [address] Lymphocytes/Leukocyte s Auto (Bld) [Pure # fraction] 2.1 E9/L Normal 1.0-4.0 [facility] Comment on above: Order Comment: Order Added by Discern Expert. Performed By: #### 2 233928, 24216578, 27632729, 3868512, 49806568, 13498665, 5565574 #### [facility] [address] [place] [address] Monocytes/100 WBC (Bld) 6.2 % Normal 4.0-14.0 [facility] Comment on above: Order Comment: Order Added by Discern Expert. Performed By: #### 2 964982, 90515905, 11236118, 5218746, 59181114, 39839570, 5402077 #### [facility] [address] [place] [address] Monocytes/Leukocytes Auto (Bld) [Pure # fraction] 0.4 E9/L Normal 0.2-1.0 [facility] Comment on above: Order Comment: Order Added by Dixon Expert. Performed By: #### 2 347846, 83228217, 36089041, 5512239, 00868594, 64308998, 8398955 #### [facility] [address] [place] [address] Neutrophils/100 WBC (Bld) 62.0 % Normal 36.0-75.0 [facility] Comment on above: Order Comment: Order Added by Dixon Expert. Performed By: #### 2 367104, 21885652, 19679651, 3425226, 82724396, 73417688, 8531044 #### [facility] [address] [place] [address] Neutrophils/Leukocyte s Auto (Bld) [Pure # fraction] 4.3 E9/L Normal 2.0-7.5 [facility] Comment on above: Order Comment: Order Added by Dixon Expert. Performed By: #### 2 087731, 63060558, 51428120, 6763498, 82949315, 38570690, 7776159 #### [facility] [address] [place] [address] [facility] 12-10-2021 Creatinine [Mass/Vol] 1.0 mg/dL Normal 0.5-1.[address] [facility] Comment on above: Performed By: #### 2 992121, 43905116, 36022178, 7013296, 06076255, 63247199, 6257377 #### [facility] [address] [place] [address] Urea nitrogen [Mass/Vol] 17 mg/dL Normal 5-21 [facility] Comment on above: Performed By: #### 2 509145, 44230549, 28751794, 4363268, 18926703, 03565759, 3590776 #### [facility] [address] [place] [address] Urea nitrogen/Creatinine [Mass ratio] 17 No Units Normal 10-20 [facility] Comment on above: Performed By: #### 2 615585, 69694702, 39977790, 0979231, 41304062, 23975889, 6681757 #### [facility] [address] [place] [address] Anion gap [Moles/Vol] 13 mmol/L Normal 6-[address] [facility] Comment on above: Performed By: #### 2 635391, 39623364, 04835824, 5541379, 05140838, 32832927, 3334233 #### [facility] [address] [place] [address] Calcium [Mass/Vol] 9.2 mg/dL Normal 8.9-11.1 [facility] Comment on above: Performed By: #### 2 834155, 92164917, 07332648, 6810837, 55936907, 67561095, 6550223 #### [facility] [address] [place] [address] Chloride [Moles/Vol] 106 mmol/L Normal 101-111 [facility] Comment on above: Performed By: #### 2 307125, 54503792, 97587482, 4529939, 46834005, 66150546, 8065667 #### [facility] [address] [place] [address] CO2 [Moles/Vol] 22 mmol/L Normal 21-31 [facility] Comment on above: Performed By: #### 2 003189, 68897225, 94878482, 5389841, 83642826, 24034673, 5236472 #### [facility] [address] [place] [address] Glucose [Mass/Vol] 96 mg/dL Normal 55-199 [facility] Comment on above: Result Comment: If t his glucose result represents a fasting glucose, interpretation should refer to the following reference range: 55-99 mg/dL Performed By: #### 2 623137, 53810113, 60689869, 8771308, 34431912, 25319970, 0051819 #### [facility] [address] [place] [address] Potassium [Moles/Vol] 4.2 mmol/L Normal 3.5-5.[address] [facility] Comment on above: Performed By: #### 2 079287, 52038586, 15879459, 8012530, 09306560, 48098398, 3871387 #### [facility] [address] [place] [address] Sodium [Moles/Vol] 137 mmol/L Normal 135-145 [facility] Comment on above: Performed By: #### 2 675316, 61665215, 24570564, 7231044, 89766533, 60467183, 4131143 #### [facility] [address] [place] [address] CBC w/ Auto Diffon Erythrocyte distribution width (RBC) [Ratio] 15.4 % High 10.9-14.2 [facility] Comment on above: Performed By: #### 2 088749, 33003736, 87499291, 2489339, 18557126, 36287869, 9133448 #### [facility] [address] [place] [address] Hematocrit (Bld) [Volume fraction] 34.9 % Normal 34.0-46.0 [facility] Comment on above: Performed By: #### 2 661642, 57033090, 82669043, 5814884, 67500332, 51317136, 9955233 #### [facility] [address] [place] [address] Hemoglobin (Bld) [Mass/Vol] 11.0 g/dL Low 12.0-16.0 [facility] Comment on above: Performed By: #### 2 585446, 72539810, 30862355, 5354143, 88955885, 71742998, 3828724 #### [facility] [address] [place] [address] MCH (RBC) [Entitic mass] 17.7 pg Low 27.0-34.0 [facility] Comment on above: Performed By: #### 2 046888, 81367416, 39578900, 3093212, 39503946, 05271604, 3981176 #### [facility] [address] [place] [address] MCHC (RBC) [Mass/Vol] 31.6 g/dL Normal 31.4-36.[address] [facility] Comment on above: Performed By: #### 2 648733, 99777211, 10670697, 1194906, 52383880, 89472711, 1697022 #### [facility] [address] [place] [address] MCV (RBC) [Entitic vol] 56.1 fL Low 80.0-100.0 [facility] Comment on above: Performed By: #### 2 405046, 90548357, 87580936, 9890290, 19942957, 78608698, 4347097 #### [facility] [address] [place] [address] Platelet mean volume (Bld) [Entitic vol] 8.9 fL Normal 6.4-10.8 [facility] Comment on above: Performed By: #### 2 909581, 37422805, 84893805, 1648739, 16075089, 48699593, 4046512 #### [facility] [address] [place] [address] Platelets (Bld) [#/Vol] 281.0 E9/L Normal 150.0-500.0 [facility] Comment on above: Performed By: #### 2 582840, 77959432, 53762080, 7522598, 69393994, 24704928, 0574033 #### [facility] [address] [place] [address] RBC (Bld) [#/Vol] 6.2 E12/L High 4.3-5.9 [facility] Comment on above: Performed By: #### 2 808939, 16120005, 17565060, 9184439, 90142617, 22072697, 2371658 #### [facility] [address] [place] [address] WBC corrected for nucl RBC Auto (Bld) [#/Vol] 6.9 E9/L Normal 4.0-11.0 [facility] Comment on above: Performed By: #### 2 692988, 07654772, 29589070, 3643347, 62531208, 60041938, 1744886 #### [facility] [address] [place] [address] CHEMISTRYOrdered By: SYSTEM SYSTEM on 12-10-2021 Anion gap [Moles/Vol] 13 mmol/L Normal 6 - 16 mEq/L [facility] Calcium [Mass/Vol] 9.2 mg/dL Normal 8.9 - 11. 1 mg/dL [facility] Chloride [Moles/Vol] 106 mmol/L Normal 101 - 1 11 mmol/L [facility] CO2 [Moles/Vol] 22 mmol/L Normal 21 - 31 mmol/L [facility] Creatinine [Mass/Vol] 1.0 mg/dL Normal 0.5 - 1.3 mg/dL [facility] GFR/1.73 sq M.predicted among blacks MDRD (S/P/Bld) [Vol rate/Area] mL/min/1.73 m2 Normal >=59mL/min/1 .73 m2 [facility] Chem S GFR/1.73 sq M.predicted among non-blacks MDRD (S/P/Bld) [Vol rate/Area] mL/min/1.73 m2 Normal >=59mL/min/1 .73 m2 [facility] Chem S Glucose [Mass/Vol] 96 mg/dL Normal 55 - 199 mg/dL [facility] Remisol Potassium [Moles/Vol] 4.2 mmol/L Normal 3.5 - 5.3 mmol/L [facility] Sodium [Moles/Vol] 137 mmol/L Normal 135 - 145 mmol/L [facility] Remisol Troponin I.cardiac [Mass/Vol] pg/mL Low 10.10 - 27.10 pg/mL [facility] Remisol Urea nitrogen [Mass/Vol] 17 mg/dL Normal 5 - 21 mg/dL [facility] Remisol Urea nitrogen/Creatinine [Mass ratio] 17 mg/mg Normal 10 - 20 [facility] Remisol Consent for Treatmenton 11-24 Consent for Treatment [id number]:127 Normal [facility] Discharge Instructionson Discharge Instructions [id number]:127 Normal [facility] ED Clinical Summaryon 2021 ED Clinical Summary [place] [id number] ED Clinical Summary Person Information Name: TORIE ORTIZ [facility] Age: 31 Years : 1990 Sex: Female Language: Czech PCP: YAMILE GARCIA CNP Marital Status: Visit [...] 03:49:35 12/10/2021 03:49:35 12/10/2021 03:49:35 ADDRESS: [address] [facility] [id number] PHYS DOC NOTES: MEDICAL INFORMATION: Prescriptions Given: New [...] With: Address: When: YAMILE GARCIA [address] [facility], [place], [place] [id number] [phone] Business (1) In 3 days 12/13/2021 Comments: Return to the emergency room if your vertigo recurs or any new symptoms DIAGNOSIS: 1:Vertigo; 2:Leg pain Normal [facility] ED Note-Nursingon 12-10-2021 ED Note-Nursing pt given d/c instructions and educated on importance of follow up. pt educated on new medications. pt verbalized understanding of instructions and readiness for d/c. pt walked self ambulatory to waiting room in stable condition Normal [facility] ED Note-Physicianon 12-11-19 ED Note-Physician Basic [...] meclizine 12.5 mg Tab, 25 mg, Oral [id number] [F], 1000 mL, IV Phenergan 25 mg/mL Injection, 12.5 mg, IV Push Disposition Plan Patient Discharge Condition Stable, improved Discharge Disposition Discharged home Discharge Prescription List Prescriptions meclizine 25 mg Tab, 25 mg= 1 tab(s), Oral, TID Zofran ODT 4 mg Tab-Dis, 4 mg= 1 tab(s), Oral, q6hr, PRN Follow-up With When Contact Information YAMILE GARCIA In 3 days 12/13/20[address] EDT [address] [place] [address] [phone] Business (1) Additional Instructions: Return to the [...] 00:31:00) Hct: (more content not included)... Normal [facility] Comment on above: Result Comment: Elec [...] you feel dizzy. General instructions ? Take [id number] and prescription medicines only as told by [...] 02/20/2006 Document Revised: 04/06/2019 Document Reviewed: 04/06/2019 [employer] Patient Education ? 2019 [employer]. Normal [facility] ED Patient Summaryon 022 ED Patient Summary [place] [id number] Patient Discharge Instructions Person Information Name: TORIE ORTIZ Age: 31 Years Arrival Date: 12/09/2021 22:22:45 Discharge Diagnosis: 1:Vertigo; 2:Leg pain Primary Care Physician: YAMILE GARICA CNP Provider Information Primary Provider: Miguel Kamara M.D. Advanced Skip Hoist Operator:None The exam and treatment you received in the Emergency Department were for an urgent problem and are not intended as complete care. It is important that you follow up with a doctor, nurse practitioner, or physician?s assistant teacher for ongoing care. If your symptoms become worse or you do not improve as expected and you are unable to reach your usual health care provider, you should return to the Emergency Department. We are available 24 hours a day. TORIE ORTIZ has been given the following list of patient education materials, prescriptions and follow-up instructions: Follow-up Instructions: With: Address: When: YAMILE GARCIA [address] [facility], [place], [place] [phone] Business (1) In 3 days 12/13/2021 Comments: [...] opioids can be used to help relieve wustirdr-bv-csifri pain and are often prescribed following a [...] be struggling with addiction, tell your health care companion and ask f (more content not included)... Normal [facility] HEMATOLOGYOrdered By: Serg Goodson on 12-10-2021 Anisocytosis Ql (Bld) Present (12/10/21 12:31 AM) Normal [facility] HemeManSS Elliptocytes LM Ql (Bld) Present (12/10/21 12:31 AM) Normal [facility] HemeManSS Erythrocyte distribution width (RBC) [Ratio] 15.4 % High 10.9 - 14.2 % [facility] HemeAutoSS Hematocrit (Bld) [Volume fraction] 34.9 % Normal 34.0 - 46.0 % [facility] HemeAutoSS Hemoglobin (Bld) [Mass/Vol] 11.0 g/dL Low [...] [Interp] See Morphology (12/10/21 12:31 AM) Normal [facility] HemeManSS Platelet mean volume (Bld) [Entitic vol] 8.9 fL Normal 6.4 - 10.8 fL [facility] HemeAutoSS Platelets (Bld) [#/Vol] 281.0 E9/L Normal 150.0 - 500.0 E9/L [facility]eAutoSS Poikilocytosis Auto Ql (Bld) Present (12/10/21 12:31 AM) Normal [facility] HemeManSS Polychromasia LM Ql (Bld) Present (12/10/21 12:31 AM) Normal [facility] HemeManSS RBC (Bld) [#/Vol] 6.2 E12/L High 4.3 - 5.9 E12/L [facility] HemeAutoSS Teardrop Cell Present (12/10/21 12:31 AM) Normal [facility] HemeManSS WBC corrected for nucl RBC Auto (Bld) [#/Vol] 6.9 E9/L Normal 4.0 - 11.0 E9/L [facility] HemeAutoSS HEMATOLOGYOrdered By: SYSTEM SYSTEM on 12-10-2021 [...] 62.0 % Normal 36.0 - 75.0 % [facility] HemeAutoSS Neutrophils/Leukocyte s Auto (Bld) [Pure # fraction] 4.3 E9/L Normal 2.0 - 7.5 E9/L [facility] HemeAutoSS Morphon 12-10-2021 Anisocytosis Ql (Bld) Present Normal [facility] Comment on above: Order Comment: Order Added by Discern Expert. Performed By: #### 2 086253, 09577911, 56755731, 1187948, 64016138, 02738026, 7150371 #### [facility] [address] [place] [address] Elliptocytes LM Ql (Bld) Present Normal [facility] Comment on above: Order Comment: Order Added by Discern Expert. Performed By: #### 2 299896, 18213159, 03011716, 8937310, 99265482, 94416488, 0310305 #### [facility] [address] [place] [address] Hypochromia Auto Ql (Bld) Present Normal [facility] Comment on above: Order Comment: Order Added by Discern Expert. Performed By: #### 2 121476, 13183306, 61229286, 9350429, 65148395, 87503564, 4441197 #### [facility] [address] [place] [address] Morphology Rey (Bld) [Interp] See Morphology Normal [facility] Comment on above: Order Comment: Order Added by Discern Expert. Performed By: #### 2 665760, 65507085, 19982802, 8014652, 03715469, 46693532, 7755368 #### [facility] [address] [place] [address] Poikilocytosis Auto Ql (Bld) Present Normal [facility] Comment on above: Order Comment: Order Added by Discern Expert. Performed By: #### 2 084092, 93403471, 59585448, 9116053, 73262742, 10894131, 9786357 #### [facility] [address] [place] [address] Polychromasia LM Ql (Bld) Present Normal [facility] Comment on above: Order Comment: Order Added by Discern Expert. Performed By: #### 2 080088, 34518691, 88111904, 8295479, 04153683, 69348285, 3848905 #### [facility] [address] [place] [address] Teardrop Cell Present Normal [facility] Comment on above: Order Comment: Order Added by Discern Expert. Performed By: #### 2 814334, 31325318, 63539769, 6728280, 42492885, 87943696, 6111673 #### [facility] [address] [place] [address] SEROLOGYOrdered By: Serg hope on 12-10-2021 HCG.beta subunit (U) [Moles/Vol] Negative Normal [facility] Man Sero Troponin 0 Hr.on 12-10-2021 Troponin I.cardiac [Mass/Vol] ng/mL Low 10.10-27.10 [facility] Comment on above: Result Comment: The 95% CI (Confidence Interval) PPV (Positive Predictive Value) for myocardial infarction in females is 38 pg/mL, in males 51 pg/mL. The results should be used in conjunction with clinical conditions of myocardial infarction. (Access High Sensitivity Troponin I Instructions For Use, M[place], December 2017) Performed By: #### 2 038670, 33305576, 03140366, 4403179, 30760419, 06152350, 0059979 #### [facility] [address] [place] [address] U BetaHcg Qualon 12-10-2021 HCG.beta subunit (U) [Moles/Vol] Negative Normal [facility] Comment on above: Performed By: #### 2 9631372, 25226473 ####[facility] [address] [place] [address] UA With Cult Reflexon 2021 Bilirubin Ql (U) Negative Normal Negative [facility] Comment on above: Performed By: #### 2 5542022, 29931860 #### [facility] [address] [place] [address] Clarity (U) CLEAR Normal Clear [facility] Comment on above: Performed By: #### 2 6432050, 30062791 #### [facility] [address] [place] [address] Color (U) YELLOW Normal Yellow [facility] Comment on above: Performed By: #### 2 2441602, 57260645 #### [facility] [address] [place] [address] Epithelial cells.squamous LM.HPF (Urine sed) [#/Area] 0-2 Normal 0-2 [facility] Comment on above: Performed By: #### 2 4876959, 52102129 #### [facility] [address] [place] [address] Glucose Test strip (U) [Mass/Vol] Negative Normal Negative [facility] Comment on above: Performed By: #### 2 3942575, 48512073 #### [facility] [address] [place] [address] Hemoglobin Ql (U) Negative Normal Negative [facility] Comment on above: Performed By: #### 2 2309964, 66354274 #### [facility] [address] [place] [address] Ketones (U) [Mass/Vol] Negative Normal Negative [facility] Comment on above: Performed By: #### 2 0585289, 88280518 #### [facility] [address] [place] [address] Poway.plasma/Lithiu m.RBC (Bld) [Mass ratio] 0-3 Normal 0-3 [facility] Comment on above: Performed By: #### 2 9415807, 49671183 #### [facility] [address] [place] [address] Nitrite Ql (U) Negative Normal Negative [facility] Comment on above: Performed By: #### 2 6647631, 96575944 #### [facility] [address] [place] [address] pH (U) 6.0 [pH] Invalid Interpretation Code 5.0-9.0 [facility] Comment on above: Performed By: #### 2 8830701, 95437573 #### [facility] [address] [place] [address] Protein (U) [Mass/Vol] Negative Normal Negative [facility] Comment on above: Performed By: #### 2 9573286, 82248412 #### [facility] [address] [place] [address] Specific gravity (U) [Rel density] 1.025 Invalid Interpretation Code 1.005-1.030 [facility] Comment on above: Performed By: #### 2 4882725, 71954806 #### [facility] [address] [place] [address] Type of Urine collection method Clean Catch Normal [facility] Comment on above: Performed By: #### 2 3525843, 95122214 #### [facility] [address] [place] [address] Urobilinogen Qn (U) 0.2 {Isamar'U}/dL Normal 0.0-1.0 [facility] Comment on above: Performed By: #### 2 9037597, 65550379 #### [facility] [address] [place] [address] WBC Auto Ql (U) Negative Normal Negative [facility] Comment on above: Performed By: #### 2 2317401, 37279429 #### [facility] [address] [place] [address] WBC LM.HPF (Urine sed) [#/Area] 0-5 Normal 0-5 [facility] Comment on above: Performed By: #### 2 9032631, 96276798 #### [facility] [address] [place] [address] URINALYSISOrdered By: Serg Goodson on 12-10-2021 Bilirubin Ql (U) Negative (12/10/21 12:32 AM) Normal Negative [facility] UA Auto SS Clarity (U) Clear (12/10/21 [...] AM) Normal Negative [facility] UA Auto SS Poway.plasma/Lithiu m.RBC (Bld) [Mass ratio] 0-3 /HPF Normal 0-3/HPF [facility] UA Auto SS Nitrite Ql (U) Negative (12/10/21 12:32 AM) Normal Negative [facility] UA Auto SS pH (U) 6.0 *NA* (12/10/21 12:32 AM) Invalid Interpretation Code 5.0 - 9.0 [facility] UA Auto SS Protein (U) [Mass/Vol] Negative (12/10/21 12:32 AM) Normal Negative [facility] UA Auto SS Specific gravity (U) [Rel density] 1.025 *NA* (12/10/21 12:32 AM) Invalid Interpretation Code 1.005 - 1.030 [facility] UA Auto SS UA Spec Desc Clean Catch (12/10/21 12:32 AM) Normal [facility] UA Auto SS Urobilinogen Qn (U) 0.7085617 {Isamar'U}/dL Normal 0.0 - 1.0 EU/dL [facility] UA Auto SS WBC Auto Ql (U) Negative (12/10/21 12:32 AM) Normal Negative [facility] UA Auto SS WBC LM.HPF (Urine sed) [#/Area] 0-5 /HPF Normal 0-5/HPF [facility] UA Auto SS US LE Venous Duplex [...] Donahue M.D. Transcribed by: FABI Technologist: MARKO Ornelas [facility] eGFRon 12-10-2021 GFR/1.73 sq M.predicted among blacks MDRD (S/P/Bld) [Vol rate/Area] mL/min/{1.73_m2} Normal >=59 [facility] Comment on above: Order Comment: Order added by Discern Expert. Result Comment: eGFR is race adjusted. AA=. Performed By: #### 2 639364, 17996003, 38812255, 3230926, 79169977, 66193993, 6171436 #### [facility] [address] [place] [address] GFR/1.73 sq M.predicted among non-blacks MDRD (S/P/Bld) [Vol rate/Area] mL/min/{1.73_m2} Normal >=59 [facility] Comment on above: Order Comment: Order added by Discern Expert. Result Comment: [employer] Web Developer sonu kidney disease could be indicated at eGFR's of less than 60 mL/min/1.73m2. Kidney failure is indicated at less than 15 mL/min/1.73m2. Performed By: #### 2 294534, 17875724, 93448724, 5449977, 87819764, 17589551, 5500756 #### [facility] [address] [place] [address] VC CONSULT FOLLOWUPon 2021 VC CONSULT FOLLOWUP Patient: TORIE ORTIZ Exam Date: 11/16/2021 : 1990 Gender:F Ordering : DR SADI JEWELL M.D. Admission #: [id number] Family : Order #: [id number] CLICK HERE TO VIEW EXAM RADIOLOGY REPORT [...] the physical exam and consultation Dictated by: Jose Wood M.D. on 11/16/2021 at 11:58 Approved by: Jose Wood M.D. on 11/16/2021 at 12:01 Normal [facility] VC EXT VENOUS LT LIMITEDon 0 11-16-2021 VC EXT VENOUS LT LIMITED Patient: TORIE ORTIZ Exam Date: 11/16/2021 : 1990 Gender:F Ordering : DR SADI JEWELL M.D. Admission #: [id number] Family : Order #: [id number] CLICK HERE TO VIEW EXAM RADIOLOGY REPORT [...] the left great saphenous vein. Dictated by: Jose Wood M.D. on 11/16/2021 at 11:57 Approved by: Jose Wood M.D. on 11/16/2021 at 11:58 Normal [facility] VC ENDOVENOUS ABL 1ST V LTon 11-08-2021 VC ENDOVENOUS ABL 1ST V LT Patient: TORIE ORTIZ Exam Date: 11/08/2021 : 1990 Gender:F Ordering : DR SADI JEWELL M.D. Admission #: [id number] Family : Order #: [id number] CLICK HERE TO VIEW EXAM RADIOLOGY REPORT PROCEDURE: VEIN CENTER ENDOVENOUS ABLATION FIRST VEIN LEFT COMPARISON: None. INDICATIONS: Pain co-occurrent and due to varicose veins of bilateral legs I83.813 OPERATIVE REPORT: The risks and benefits of the procedure had been previously discussed, and were rediscussed at length. Informed written consent was obtained by or and Ketan Haley assisted. Time out procedure was performed. The left [...] the left great saphenous vein. Dictated by: Jose Wood M.D. on 11/08/2021 at 08:57 Approved by: Jose Wood M.D. on 11/08/2021 at 08:59 [facility] VC CONSULT FOLLOWUPon 2021 VC CONSULT FOLLOWUP Patient: TORIE ORTIZ Pete Exam Date: 10/19/2021 : 1990 Gender:F Ordering : DR SADI JEWELL M.D. Admission #: [id number] Family : Order #: [id number] CLICK HERE TO VIEW EXAM RADIOLOGY REPORT [...] the physical exam and consultation Dictated by: Jose Wood M.D. on 10/19/2021 at 09:35 Approved by: Jose Wood M.D. on 10/19/2021 at 09:37 Normal [facility] VC EXT VENOUS RT LIMITEDon 0 10-19-2021 VC EXT VENOUS RT LIMITED Patient: TORIE ORTIZ Exam Date: 10/19/2021 : 1990 Gender:F Ordering : DR SADI JEWELL M.D. Admission #: [id number] Family : Order #: [id number] CLICK HERE TO VIEW EXAM RADIOLOGY REPORT [...] the right great saphenous vein. Dictated by: Jose Wood M.D. on 10/19/2021 at 09:33 Approved by: Jose Wood M.D. on 10/19/2021 at 09:34 Normal [facility] VC ENDOVENOUS ABL 1ST V RTon 10-16-2021 VC ENDOVENOUS ABL 1ST V RT Patient: TORIE ORTIZ Exam Date: 10/16/2021 : 1990 Gender:F Ordering : DR SADI JEWELL M.D. Admission #: [id number] Family : Order #: [id number] CLICK HERE TO VIEW EXAM RADIOLOGY REPORT PROCEDURE: VEIN CENTER ENDOVENOUS ABLATION FIRST VEIN RIGHT GREAT SAPHENOUS VEIN COMPARISON: None. INDICATIONS: Pain co-occurrent and due to varicose veins of bilateral legs I83.813 OPERATIVE REPORT: The risks and benefits of the procedure had been previously discussed, and were rediscussed at length. Informed written consent was obtained by and Ketan Haley assisted. Time out procedure was performed. The right [...] Sadi Jewell MD on 10/16/2021 at 09:30 [facility] US THYROIDon 10-10-2021 US THYROID EXAMINATION: US [...] vascularity. No significant change. Electronically authenticated by: JOSE WOOD Date: 2021-10-10 08:52 Normal [facility] Vital Signs Date Time Vital Sign Value Performing Clinician Isabelle nielsen 12-10-2021 14:00-0400 Body temperature 98.6 [degF] [facility] 12-10-2021 14:00-0400 Diastolic blood pressure 94 mm[Hg] [facility] 12-10-2021 14:00-0400 Heart rate 86 /min [facility] 12-10-2021 14:00-0400 Mean blood pressure 106 mm[Hg] [facility] 12-10-2021 14:00-0400 Respiratory rate 18 /min [facility] 12-10-2021 14:00-0400 SaO2% (BldA) [Mass fraction] 100 % [facility] 12-10-2021 14:00-0400 Systolic blood pressure 131 mm[Hg] [facility] 12-10-2021 03:38-0400 Body temperature 98.24 [degF] [facility] 12-10-2021 03:38-0400 Diastolic blood pressure 64 mm[Hg] [facility] 12-10-2021 03:38-0400 Heart rate 92 /min [facility] 12-10-2021 03:38-0400 Mean blood pressure 80 mm[Hg] [facility] 12-10-2021 03:38-0400 Respiratory rate 17 /min [facility] 12-10-2021 03:38-0400 SaO2% (BldA) [Mass fraction] 99 % [facility] 12-10-2021 03:38-0400 Systolic blood pressure 111 mm[Hg] [facility] 12-10-2021 03:00-0400 Diastolic blood pressure 85 mm[Hg] [facility] 12-10-2021 03:00-0400 Mean blood pressure 102 mm[Hg] [facility] 12-10-2021 03:00-0400 Systolic blood pressure 137 mm[Hg] [facility] 12-10-2021 00:00-0400 Heart rate 80 /min [facility] 12-09-2021 23:00-0400 gluc 90 mg/dL [facility] 12-09-2021 23:00-0400 gluc [facility] 12-09-2021 23:00-0400 Heart rate 75 /min [facility] 12-09-2021 22:46-0400 Heart rate 86 /min [facility] Encounters Encounter Date Encounter Type Care Provider Facility Start: 2023 End: 06-21-2023 ambulatory EVGENY ZHOU Facility:[facility] Start: 09-20-2022 End: 09-21-2022 ambulatory MAHAD GARCIA Facility:[facility] Start: 09-04-2022 End: 09-05-[address] SADI JEWELL Facility:[facility] Start: 08-27-2022 End: 08-27-[address] JOSE WOOD Facility:[facility] Start: 08-21-2022 End: 08-22-[address] SADI JEWELL Facility:[facility] Start: 08-16-2022 End: 08-17-[address] SADI JEWELL Facility:[facility] Start: 05-16-2022 End: 05-16-2022 ambulatory MARIAN HIGGINS Facility:[facility] Start: 04-19-2022 End: 04-20-2022 ambulatory MARIAN HIGGINS Facility:[facility] Start: 12-20-2021 End: 12-21-2021 ambulatory ANA Montejo Facility:[facility] Start: 12-09-2021 End: 12-10-2021 Emergency department patient visit [facility] Start: 11-23-2021 End: 11-24-2021 ambulatory [...] 08-22-2020 Patient encounter procedure External Provider [facility] Start: 08-22-2020 Results Only External Provider Exter nal-NonCCF Procedures Date Procedure Procedure Detail Performing Clinician Start: 08-22-2020 EXTERNAL IMAGING Manager Child al Provider Start: 08-22-2020 EXTERNAL LAB External P rovider Plan of Treatment Date Care Activity Detail Author Start: 01-26-2020 Influenza vaccination INFLUENZA (#1) [facility] Start: 2019 HPV TESTING HPV TESTING [facility] Start: 2010 PAP TESTING PAP TESTING [facility] Start: 2008 Urine microalbumin profile DTAP,TDAP ,TD (1 - Tdap) [facility] Start: 2007 HEPATITIS C SCREENING HEPATITIS C SC REENING [facility] Start: 2007 HIV SCREENING HIV SCREENING [facility] Start: 2001 Adult depression scr eening assessment DEPRESSION SCREENING [facility] c Payers Date Payer Category Payer Private Health Insurance AETNA A ETNA OPEN ACCESS [employer]ET[employer] SELECT [id number] 2020-Present EPO [id number] 1989 Unknown [id number] 93 1989 Unknown [id number] 2.16.840.1.166452.3.579.2.5 93 1989 Unknown [id number] 2.16.840.1.545698.3.579.2.5 1989 Unknown [id number] 2.16.840.1.342054.3.579.2.5 1989 Unknown [id number] 2.16.840.1.310480.3.579.2.5 1989 Unknown [id number] 2.16.840.1.528505.3.579.2.5 1989 Unknown [id number] 2.16.840.1.503909.3.579.2.5 1989 Unknown [id number] 2.16.840.1.802055.3.579.2.5 1989 Unknown [id number] 2.16.840.1.166910.3.579.2.5 1989 Unknown [id number] 2.16.840.1.541022.3.579.2.5 1989 Unknown [id number] 2.16.840.1.294122.3.579.2.5 1989 Unknown [id number] 2.16.840.1.782702.3.579.2.5 1989 Unknown [id number] 2.16.840.1.068480.3.579.2.5 1989 Unknown [id number] 2.16.840.1.445421.3.579.2.5 1989 Unknown [id number] 2.16.840.1.423913.3.579.2.5 1960 Medicaid [id number] 1960 Private Health Insurance [id number] [id number] 1960 Self-pay [id number] 1960 Self-pay 1959 Unknown [id number] 1959 Unknown [id number] Social History Date Type Detail Facility Start: 08-22-2020 [facility] Start: 1990 Sex Assigned At Not on file [facility] Exposure to SARS-CoV -2 (event) Not sure [facility] Sex Assigned At [facility] [place] Other Tobacco smoking status No Smokin g Status Entered [facility] Functional Status Date Assessment Result Facility 12-09-2021 Functional Status N/A [facility] Progress note 2023 Note Date & Type Note Facility 2023 Note HNO ID: [id number] Author: FRANCIS MA MD Service: ? Author Type: Physician Type: Progress Notes Filed: 2023 14:44 Note Text: [facility], [place] Department of Hematologic Oncology and Blood Disorders PATIENT NAME: [facility] NO: [id number] ATTENDING PHYSICIAN: Francis Ma MD. DATE OF SERVICE: [address] Diane Salcedo for an opinion regarding beta-thalassemia. My final recommendations will be communicated back to the requesting physician by way of shared medical record or letter via US mail HISTORY OF PRESENT ILLNESS: 32 yowf who is referred for evaluation of beta-thalassemia. Microcytic anemia was discovered when she was a teenager. Her mother also has beta thalassemia. She has 4 living siblings but doesn't know if they are affected. 07/14/15 WBC 5.9, Hb 8.8/Hct 30.2, MCV 56.4 (?illegible), RDW 17.6, Plts 290,000 08/06/15 Fe 76/TIBC 501, ferritin 22.5 10/12/16 Hb 8.2/Hct 26.5, MCV 64.8, Plts 222,000 04/06/16 WBC 6.7, Hb 9.0/Hct 29.3, MCV 61, RDW 18.3, Plts 300,000; 2+ micro, 1+ hypochromia, 1+ basophilic stippling, 1+ elliptocytosis, 1+ teardrop cells, HbA 93.5%, HbF 1.3%, HbA2 5.2% 12/04/17 HbA 94%, HbF 0.7%, HbA2 5.3% 02/04/18 WBC 5.9, Hb 7.8/Hct 25.7, MCV 65.6, Plts 234,000 04/24/18 WBC 6.8, Hb 9.8/Hct 28.8, MCV 66.7, RDW 15.7, Plts 212,000 10/08/20 WBC 7.4, Hb 10.8/Hct 36.7, MCV 60.4, Plts 348,000, 56S, 36L, 6M, 2E, LFT's WNL 02/21/23 Abd US: splenomegaly (13.9 cm) 04/18/23 WBC 5.9, Hb 9.8/Hct 32, MCV 59.4, RDW 15.8, Plts 344,000, HbA 94.8%, Hb A2 5.2%, HbF 0%, Fe 53/TIBC 373, Ferritin 89, B12 309, Folate 17.4 Only [facility] CBC: Component Latest Ref Rng AND Units 08/23/2020 WBC 3.70 - 11.00 k/uL 3.98 RBC 3.90 - 5.20 m/uL 5.39 (H) Hemoglobin 11.5 - 15.5 g/dL 9.8 (L) Hematocrit 36.0 - 46.0 % 32.1 (L) MCV 80.0 - 100.0 fL 59.6 (L) MCH 26.0 - 34.0 pG 18.2 (L) MCHC 30.5 - 36.0 g/dL 30.5 RDW-CV 11.5 - 15.0 % 16.3 (H) Platelet Count 150 - 400 k/uL 276 MPV 9.0 - 12.7 fL 10.3 Neut% % 57.0 Abs Neut (ANC) 1.45 - 7.50 k/uL 2.26 Lymph% % 35.7 Abs Lymph 1.00 - 4.00 k/uL 1.42 Leon% % 5.3 Abs Leon <0.87 k/uL 0.21 Eosin% % 1.5 Abs Eosin <0.46 k/uL 0.06 Baso% % 0.5 Abs Baso <0.11 k/uL <0.03 Iron 41 - 186 ug/dL 75 TIBC 232 - 386 ug/dL 293 Transferrin Saturation 15 - 57 % 26 Retic % 0.4 - 2.0 % 2.0 Abs Retic 0.0180 - 0.1000 M/uL 0.107 (H) Ferritin 14.7 - 205.1 ng/mL 167.0 LD 135 - 214 U/L 197 She is . Her has been tested and doesn't have thalassemia. She's had heavy menstrual periods in the past and has been iron deficient as documented in the above lab results. She's been given oral as well as IV iron in the past (last in 2018 during ). 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 She was placed on folic acid. She had COVID-19 infection in April. She has never received a COVID vaccination. PAST MEDICAL HISTORY Diagnosis Date Anemia 07/2020 referral Yamile Garcia GERD (gastroesophageal reflux disease) Thalassemia PAST SURGICAL HISTORY Procedure Laterality Date DANDC, DIAG AND/OR THERAPEUTIC LIGATE FALLOPIAN TUBE No family history on file. Social History Tobacco Use Smoking status: Never Smokeless tobacco: Never Substance Use Topics Alcohol use: Never Drug use: Never PHYSICAL EXAMINATION: BP 127/81 Pulse 86 Resp 20 Ht 160 cm (5' 2.99 ) Wt 106.3 kg (234 lb 5.6 oz) LMP 06/17/2023 SpO2 98% BMI 41.52 kg/m? Alert, in no acute distress. No jaundice, ecchymosis, petechiae. Ext: no edema. 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 This is defined by moderate chronic microcytic hypochromic anemia with Hb's generally <10 but more severe in times of stress (as during in this case). The genotype is likely either b+/b+ or b+/kj. The Hb electrophoresis didn't identify HbE or HPFH. The only discordant feature is the lack of a more significant elevation in HbF. Coinheritance with alpha-thalassemia is unlikely based on the family history but not ruled out by her Hb electrophoresis. She's had concurrent iron deficiency in the past secondary to menstrual blood loss but that is not the case as recently as March. Will recheck her CBC/diff and iron stores. I emphasized that iron should not be given without first documenting deficiency since iron absorption is increased in the thalassemias. However, she's not required transfusion in the past and iron overload is not expected to occur. Given her degree of anemia at baseline, lack of transfusion requirement and probable genotype, there is no therapy indicated other than supportive care. We discussed the approaches of bone marrow transplant, gene therapy and luspatercept which are limited to patients with transfusion-dependent beta-thal (beta-thal major) and do not apply in this case. We also reviewed (more content not included)... [facility] Evaluation + Plan note 12-10-2021 Note Date & Type Note Facility 12-10-2021 Evaluation + Plan note Extrac radha from: Title:ED Note Author:Miguel Kamara M.D. te:12/10/21 1. Vertigo (R42: Dizziness a nd [...] Diagnostic Tests Pending * Path. Review 12/10/21 [facility] Discharge instructions 12-10-2021 Note Date & [...] if you feel dizzy. General instructions Take wjgt-kcj-agjpyke and prescription medicines only as told by [...] 02/20/2006 Document Revised: 04/06/2019 Document Reviewed: 04/06/2019 [employer] Patient Education [employer]. Follow Up Care 12/09/2021 22:26:43 With:YAMILE GARCIA Address: [address] [place] [phone] Business (1) When:12/13/2021 Comments:Return to the emergency room if your vertigo recurs or any new symptoms [facility] Clinical Note 12-10-2021 Note Date & Type [...] any SOB. pt has hx of anxiety [facility] Evaluation note Note Date & Type Note Facility Evaluation note No Information [facility] Other History general Narrative - Reported Note Date & Type Note Facility History general Narrative - Reported Type Surgical History D & C Surgical History tubal ligation [facility] [place] Other Hospital course Narrative Note Date & Type Note Facility Hospital course Narrative No data available for this section [facility] Progress note Note Date & Type Note Facility Progress note No data available for this section [facility] Summary Purpose Family History No Family History [...] prosecute any alcohol or drug abuse [facility] the event this information is protected by the Federal Confidentiality of Alcohol and Drug Abuse Patient Records regulations: The Federal rules restrict any use of the information to criminally investigate or prosecute any alcohol or drug abuse patient.[facility] REASON FOR VISIT (unrecogniz ed section and content) N/S covid test Care Team (unrecognized sect ion and content) Personnel Name: YAMILE GARCIA CNP Address: [address] [place] [address] [place] INFORMATION SOURCE (unrecogn ized section and content) DATE CREATED AUTHOR 12/14/2021 [facility] DATE CREATED AUTHOR AUTHOR'S ORGANIZ ATION 10/06/2022 [facility] DATE CREATED AUTHOR AUTHOR'S ORGANIZ ATION 06/22/2023 [facility] FOR RECORDS PERTAINING TO PATIENTS WHO ARE [...] BE BASED ON THE PRIMARY CLINICAL RECORDS. [facility]. provides no warranty or guarantee of the accuracy or completeness of information in this document.
[2023-08-04 08:06] VITALS: O2SAT 99
--- NOTE | 2023-08-04 08:20 | ED.URI1 ---
HPI - URI/Sore Throat General Chief Complaint: Upper Respiratory Infection Stated Complaint: FEVER, COUGH Time Seen by Provider: 08/04/23 08:02 Source: patient Limitations: no limitations History of Present Illness HPI Narrative: 33-year-old female presents for congestion and sore throat. She has been feeling this way for 2 days. Her ears feel clogged. She does not have a fever here and has not had 1 at home. No productive cough or vomiting. Symptoms are continuous. Related Data Home Medications Medication Instructions Recorded Confirmed buspirone 10 mg tablet 10 mg PO TID 11/07/22 03/22/23 levothyroxine 50 mcg tablet 50 mcg PO DAILY 11/07/22 03/22/23 pantoprazole 40 mg tablet,delayed 40 mg PO DAILY 11/07/22 03/22/23 release hydroxyzine pamoate 25 mg capsule 25 mg PO BID 03/19/23 03/22/23 Previous Rx's Medication Instructions Recorded hydrocodone 5 mg-acetaminophen 325 1 tab PO Q4H PRN pain 4 days #16 03/22/23 mg tablet tabs ibuprofen 800 mg tablet 800 mg PO Q8H PRN pain 14 days #40 03/22/23 tabs benzonatate 100 mg capsule 100 mg PO TID PRN cough #20 caps 08/04/23 loratadine 5 mg-pseudoephedrine ER 1 tab PO Q12H PRN nasal congestion 08/04/23 120 mg tablet,extended #20 tabs release,12hr (Claritin-D 12 Hour) Allergies Allergy/AdvReac Type Severity Reaction Status Date / Time No Known Drug Allergies Allergy Verified 03/19/23 09:08 Review of Systems ROS Narrative A ten point review of systems is negative except as noted above. [facility] Medical History (Updated 08/04/23 @ 08:49 by Robert Wade MD) Postoperative nausea and vomiting ?R11.2 - Nausea with vomiting, unspecified (ICD-10) ?Z98.890 - Other specified postprocedural states (ICD-10) Anemia ?D64.9 - Anemia, unspecified (ICD-10) Anxiety ?F41.9 - Anxiety disorder, unspecified (ICD-10) COVID-19 ?U07.1 - COVID-19 (ICD-10) Seizures ?R56.9 - Unspecified convulsions (ICD-10) GERD (gastroesophageal reflux disease) ?K21.9 - Gastro-esophageal reflux disease without esophagitis (ICD-10) Hypothyroidism ?E03.9 - Hypothyroidism, unspecified (ICD-10) Pelvic pain ?R10.2 - Pelvic and perineal pain (ICD-10) Request for sterilization ?Z30.2 - Encounter for sterilization (ICD-10) Surgical History (Updated 03/19/23 @ 09:21 by Denise Nguyen NP) History of wisdom tooth extraction ?K08.409 - Partial loss of teeth, unspecified cause, unspecified class (ICD-10) H/O tubal ligation ?Z98.51 - Tubal ligation status (ICD-10) H/O dilation and curettage ?Z98.890 - Other specified postprocedural states (ICD-10) Family History (Updated 03/19/23 @ 09:15 by Denise Nguyen NP) Other Family history of breast cancer Family history of diabetes mellitus Family history of heart disease Family history of lung cancer Family history of myocardial infarction Social History (Updated 03/19/23 @ 09:11 by Denise Nguyen NP) Within the past year, how often did you have a drink containing alcohol: never Score interpretation: A score less than 3 is consistent with normal alcohol consumption. 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 General: The patient appears well and in no apparent distress. Patient is resting comfortably on cart. Skin: Warm, dry, no pallor noted. There is no rash noted. Head: Normocephalic, atraumatic Eye: Normal conjunctiva, no drainage Ears, Nose, Mouth, and Throat: oral mucosa is moist. Nares patent. Mouth without vesicles. Ear canals patent. Tm's without Erythema. No pharyngeal exudate or peritonsillar swelling or uvular deviation. Cardiovascular: Regular Rate and Rhythm Respiratory: Patient is in no distress, no accessory muscle use, lungs are clear to auscultation, no wheezing, rales or rhonchi Back: non-tender GI: Soft and nontender Musculoskeletal: The patient has no evidence of calf tenderness, no pitting edema, symmetrical pulses noted bilaterally Neurological: A&O, normal speech Psychiatric: Cooperative Constitutional Vital Signs, click to edit/add: Last Vital Signs Temp 98.9 F 08/04/23 07:59 Pulse 117 H 08/04/23 07:59 Resp 18 08/04/23 07:59 BP 139/99 H 08/04/23 07:59 Pulse Ox 99 08/04/23 08:06 O2 Del Method Room Air 08/04/23 08:06 Course Vital Signs Vital signs: Vital Signs Temperature 98.9 F 08/04/23 07:59 Pulse Rate 117 H 08/04/23 07:59 Respiratory Rate 18 08/04/23 07:59 Blood Pressure 139/99 H 08/04/23 07:59 Pulse Oximetry 99 08/04/23 07:59 Oxygen Delivery Method Room Air 08/04/23 07:59 Temperature 98.9 F 08/04/23 07:59 Pulse Rate 117 H 08/04/23 07:59 Respiratory Rate 18 08/04/23 07:59 Blood Pressure 139/99 H 08/04/23 07:59 Pulse Oximetry 99 08/04/23 08:06 Oxygen Delivery Method Room Air 08/04/23 08:06 MDM - URI/Sore Throat MDM Narrative Medical decision making narrative: The patient is tested positive for influenza. There is no indication for an antibiotic and she will be treated symptomatically. Treatment diagnosis and follow-up were discussed with the patient Differential Diagnosis Differential diagnosis: Likely upper respiratory infection, viral infection, influenza and other (COVID) Lab Data Attestation: I reviewed the patient's lab results. Labs: Lab Results 08/04/23 Range/Units 08:00 Influenza Type A Ag Negative Influenza Type B Ag Positive A SARS-CoV-2 Ag (CV2AG) Negative (NEGATIVE) Streptococcus Screen Negative Discharge Plan Discharge Stand Alone Forms: Portal Instructions Chief Complaint: Upper Respiratory Infection Clinical Impression: Influenza Patient Disposition: Home, Self-Care Time of Disposition Decision: 08:49 Condition: Good Mode of Transportation: Private Vehicle Prescriptions / Home Meds: New benzonatate 100 mg capsule 100 mg PO TID PRN (Reason: cough) Qty: 20 0RF Claritin-D 12 Hour 5-120 mg tablet extended release 12 hr 1 tab PO Q12H PRN (Reason: nasal congestion) Qty: 20 0RF No Action buspirone 10 mg tablet 10 mg PO TID levothyroxine 50 mcg tablet 50 mcg PO DAILY pantoprazole 40 mg tablet,delayed release (DR/EC) 40 mg PO DAILY hydroxyzine pamoate 25 mg capsule 25 mg PO BID ibuprofen 800 mg tablet 800 mg PO Q8H PRN (Reason: pain) 14 Days Qty: 40 0RF hydrocodone-acetaminophen 5-325 mg tablet 1 tab PO Q4H PRN (Reason: pain) 4 Days Qty: 16 0RF Instructions: Influenza (ED) Referrals: EVGENY ZHOU APRN [Primary Care Provider] - 1 week
[2023-08-04 08:36] LABS: Influenza Virus A Antigen Negative; Influenza Virus B Antigen Positive; Internal Control Within Normal Limits; SARS-CoV-2 Ag NEGATIVE (NEGATIVE); Strep A Antigen Screen Negative
[2023-08-04 08:55] VITALS: BP 120/84; PULSE 110; RESP 16; O2SAT 99
== END 2023-08-04 08:57 | disposition home or self-care (01) ==
PROVIDERS: Emergency Provider Emergency Medicine; Family Provider Nurse Practitioner Primary Care; PCP Nurse Practitioner Primary Care
DX: J10.1 Influenza due to other identified influenza virus with other respiratory manifestations (principal); Z20.822 Contact with and (suspected) exposure to COVID-19; Z79.899 Other long term (current) drug therapy; Z79.890 Hormone replacement therapy; F41.9 Anxiety disorder, unspecified; K21.9 Gastro-esophageal reflux disease without esophagitis; E03.9 Hypothyroidism, unspecified; Z86.16 Personal history of COVID-19; Z98.890 Other specified postprocedural states; Z98.51 Tubal ligation status
CPT/HCPCS: 87070; 87804; 87811; 87880; 99283

== ENCOUNTER 2023-11-26 07:38 | Outpatient (RCR) | payer OTHER, SELFPAY | END 2023-12-05 15:30 | disposition home or self-care (01) | LOC: HEMC 07:38 | PROVIDERS: Family Provider Nurse Practitioner Primary Care; PCP Nurse Practitioner Primary Care; Visit Provider Internal Medicine Hematology & Oncology | DX: D64.9 Anemia, unspecified (principal); D56.9 Thalassemia, unspecified; R53.83 Other fatigue | CPT/HCPCS: G0463 ==

== ENCOUNTER 2023-12-02 15:35 | Outpatient (OUT) | payer OTHER, SELFPAY ==
--- OUTSIDE RECORDS SUMMARY | 2023-12-02 15:54 | XMS_ITS | CCD ---
Author Organization [facility] Inform ion Partnership [facility] Care Team Providers Care Databases Computer Consultant Name Role Phone Unavailable Primary Care Provider Juan Carlos Panchal Unavailable CEDRICYAMILE BRANDON Primary Care Physician FANTA, DR SADI Oliveira Consulting Unavailable AICHHOLZ, FUEL RETROFITTING TECHNICIAN YAMILE Primary Care Unavailable WEST, DR SADI Oliveira Attending Unavailable WEST, DR SADI Oliveira Admitting Unavailable WEST, DR SADI Oliveira Consulting Unavailable AICHHOLZ, FUEL RETROFITTING TECHNICIAN YAMILE Primary Care Unavailable WEST, DR SADI Oliveira Attending Unavailable WEST, DR SADI Oliveira Admitting Unavailable ZIEBER, DR JOSE Crowley Consulting Unavailable WEST, DR SADI Oliveira Consulting Unavailable AICHHOLZ, FUEL RETROFITTING TECHNICIAN YAMILE Primary Care Unavailable WEST, DR SADI Oliveira Attending Unavailable WEST, DR SADI Oliveira Admitting Unavailable ZIEBER, DR JOSE Crowley Consulting Unavailable WEST, DR SADI Oliveira Consulting Unavailable AICHHOLZ, FUEL RETROFITTING TECHNICIAN YAMILE Primary Care Unavailable WEST, DR SADI Oliveira Attending Unavailable WEST, DR SADI Oliveira Admitting Unavailable WEST, DR SADI Oliveira Consulting Unavailable AICHHOLZ, FUEL RETROFITTING TECHNICIAN YAMILE Primary Care Unavailable WEST, DR SADI Oliveira Attending Unavailable WEST, DR SADI Oliveira Admitting Unavailable ZIEBER, DR JOSE Crowley Consulting Unavailable WEST, DR SADI Oliveira Consulting Unavailable AICHHOLZ, FUEL RETROFITTING TECHNICIAN YAMILE Primary Care Unavailable WEST, DR SADI Oliveira Attending Unavailable FANTA, DR SADI Oliveira Admitting Unavailable ZIEBER, DR JOSE Crowley Consulting Unavailable FANTA, DR SADI Oliveira Admitting Unavailable WEST, DR SADI Oliveira Attending Unavailable AICHHOLZ, FUEL RETROFITTING TECHNICIAN YAMILE Primary Care Unavailable WEST, DR SADI Oliveira Consulting Unavailable AICHHOLZ, FUEL RETROFITTING TECHNICIAN YAMILE Consulting Unavailable AICHHOLZ, FUEL RETROFITTING TECHNICIAN YAMILE Primary Care Unavailable AICHHOLZ, FUEL RETROFITTING TECHNICIAN YAMILE Attending Unavailable AICHHOLZ, FUEL RETROFITTING TECHNICIAN YAMILE Admitting Unavailable AICHHOLZ, FUEL RETROFITTING TECHNICIAN YAMILE Admitting Unavailable AICHHOLZ, FUEL RETROFITTING TECHNICIAN YAMILE Attending Unavailable AICHHOLZ, FUEL RETROFITTING TECHNICIAN YAMILE Primary Care Unavailable AICHHOLZ, FUEL RETROFITTING TECHNICIAN YAMILE Consulting Unavailable ADONAY, DR JOSE Crowley Consulting Unavailable AICHHOLZ, FUEL RETROFITTING TECHNICIAN YAMILE Consulting Unavailable AICHHOLZ, FUEL RETROFITTING TECHNICIAN YAMILE Primary Care Unavailable AICHHOLZ, FUEL RETROFITTING TECHNICIAN YAMILE Attending Unavailable AICHHOLZ, FUEL RETROFITTING TECHNICIAN YAMILE Admitting Unavailable ADONAY, DR JOSE Crowley Consulting Unavailable FRANDY ., DR MATOS Attending Unavailable FRANDY ., DR MATOS Admitting Unavailable AICHHOLZ, FUEL RETROFITTING TECHNICIAN YAMILE Primary Care Unavailable FRANDY ., DR MATOS Consulting Unavailable CONNIE COTA Consulting Unavailable MARIAN HIGGINS Consulting Unavailable STAR Monetjo, MADDIE Attending Unavailable STAR ., MADDIE Admitting Unavailable AICHHOLZ, FUEL RETROFITTING TECHNICIAN YAMILE Primary Care Unavailable JOSE RICKETTS Consulting Unavailable STAR ., MADDIE Consulting Unavailable RONALDO, MARIAN Consulting Unavailable RONALDO, MARIAN Attending Unavailable RONALDO, MARIAN Admitting Unavailable AICHHOLZ, FUEL RETROFITTING TECHNICIAN YAMILE Primary Care Unavailable PAKO JERRY Consulting Unavailable ANA VAZ Consulting Unavailable RONALDO, MARIAN Attending Unavailable RONALDO, MARIAN Admitting Unavailable AICHHOLZ, FUEL RETROFITTING TECHNICIAN YAMILE Primary Care Unavailable LEROY PRETTY Consulting Unavailable Ludy Garcia Consulting Unavailable FANTA, DR SADI Oliveira Consulting Unavailable AICHHOLZ, FUEL RETROFITTING TECHNICIAN YAMILE Primary Care Unavailable FANTA, DR SADI [...] 3 Episodic Other aftercare (1 source) Other shelter (current) drug therapy; Translations: [OTH SPOOL CLEANER HAND CURRENT DRUG THERAPY] Onset: 3 Episodic Other [...] Basophils (Bld) [#/Vol] 0.03 10*3/uL Normal <0.11 [facility] Comment on above: Order Comment: Speci men Type: BLOOD SPECIMEN Ordering Facility: [facility] Address: [address] [place], [place] [address] Performed By: #### 1 4196-0, 33716-0 #### [facility] [id number] [address] [place] [address] [place] Basophils/100 WBC (Bld) 0.5 % Normal [facility] Comment on above: Order Comment: Speci men Type: BLOOD SPECIMEN Ordering Facility: [facility] Address: [address] [place] [address] Performed By: #### 1 4196-0, 22411-4 #### [facility] [id number] [address] [place] [address] [place] Differential cell count method Nom (Bld) Auto Normal [facility] Comment on above: Order Comment: Speci men Type: BLOOD SPECIMEN Ordering Facility: [facility] Address: [address] [place] [address] Performed By: #### 1 4196-0, 16299-8 #### [facility] [id number] [address] [place] [address] [place] Eosinophils (Bld) [#/Vol] 0.10 10*3/uL Normal <0.46 [facility] Comment on above: Order Comment: Speci men Type: BLOOD SPECIMEN Ordering Facility: [facility] Address: [address] [place] [address] Performed By: #### 1 4196-0, 43886-8 #### [facility] [id number] [address] [place] [address] [place] Eosinophils/100 WBC (Bld) 1.8 % Normal [facility] Comment on above: Order Comment: Speci men Type: BLOOD SPECIMEN Ordering Facility: [facility] Address: [address] [place] [address] Performed By: #### 1 4196-0, 94985-1 #### [facility] [id number] [address] [place] [address] [place] Erythrocyte distribution width (RBC) [Ratio] 16.5 % High 11.5-15.0 [facility] Comment on above: Order Comment: Speci men Type: BLOOD SPECIMEN Ordering Facility: [facility] Address: [address] [place] [address] Performed By: #### 1 4196-0, 30496-5 #### [facility] [id number] [address] [place] [address] [place] Hematocrit (Bld) [Volume fraction] 34.9 % Low 36.0-46.0 [facility] Comment on above: Order Comment: Speci men Type: BLOOD SPECIMEN Ordering Facility: [facility] Address: [address] [place] [address] Performed By: #### 1 4196-0, 37556-3 #### [facility] [id number] [address] [place] [address] [place] Hemoglobin (Bld) [Mass/Vol] 10.5 g/dL Low 11.5-15.5 [facility] Comment on above: Order Comment: Speci men Type: BLOOD SPECIMEN Ordering Facility: [facility] Address: [address] [place] [address] Performed By: #### 1 4196-0, 79706-3 #### [facility] [id number] [address] [place] [address] [place] Immature granulocytes (Bld) [#/Vol] 10*3/uL Normal <0.10 [facility] Comment on above: Order Comment: Speci men Type: BLOOD SPECIMEN Ordering Facility: [facility] Address: [address] [place] [address] Performed By: #### 1 4196-0, 03114-8 #### [facility] [place] [id number] [address] [place] [address] [place] Immature granulocytes/100 WBC (Bld) 0.2 % Normal [facility] Comment on above: Order Comment: Speci men Type: BLOOD SPECIMEN Ordering Facility: [facility] Address: [address] [place] [address] Performed By: #### 1 4196-0, 83811-9 #### [facility] [id number] [address] [place] [address] [place] Lymphocytes (Bld) [#/Vol] 1.77 10*3/uL Normal 1.00-4.00 [facility] Comment on above: Order Comment: Speci men Type: BLOOD SPECIMEN Ordering Facility: [facility] Address: [address] [place] [address] Performed By: #### 1 4196-0, 18493-2 #### [facility] [id number] [address] [place] [address] [place] Lymphocytes/100 WBC (Bld) 31.3 % Normal [facility] Comment on above: Order Comment: Speci men Type: BLOOD SPECIMEN Ordering Facility: [facility] Address: [address] [place] [address] Performed By: #### 1 4196-0, 21970-7 #### [facility] [id number] [address] [place] [address] [place] MCH (RBC) [Entitic mass] 17.9 pg Low 26.0-34.0 [facility] Comment on above: Order Comment: Speci men Type: BLOOD SPECIMEN Ordering Facility: [facility] Address: [address] [place] [address] Performed By: #### 1 4196-0, 71190-4 #### [facility] [id number] [address] [place] [address] [place] MCHC (RBC) [Mass/Vol] 30.1 g/dL Low 30.5-36.0 [facility] Comment on above: Order Comment: Speci men Type: BLOOD SPECIMEN Ordering Facility: [facility] Address: [address] [place] [address] Performed By: #### 1 4196-0, 87211-6 #### [facility] [id number] [address] [place] [address] [place] MCV (RBC) [Entitic vol] 59.7 fL Low 80.0-100.0 [facility] Comment on above: Order Comment: Speci men Type: BLOOD SPECIMEN Ordering Facility: [facility] Address: [address] [place] [address] Performed By: #### 1 4196-0, 67703-4 #### [facility] [id number] [address] [place] [address] [place] Monocytes (Bld) [#/Vol] 0.25 10*3/uL Normal <0.87 [facility] Comment on above: Order Comment: Speci men Type: BLOOD SPECIMEN Ordering Facility: [facility] Address: [address] [place] [address] Performed By: #### 1 4196-0, 76732-2 #### [facility] [id number] [address] [place] [address] [place] Monocytes/100 WBC (Bld) 4.4 % Normal [facility] Comment on above: Order Comment: Speci men Type: BLOOD SPECIMEN Ordering Facility: [facility] Address: [address] [place] [address] Performed By: #### 1 4196-0, 49650-4 #### [facility] [id number] [address] [place] [address] [place] Neutrophils (Bld) [#/Vol] 3.49 10*3/uL Normal 1.45-7.50 [facility] Comment on above: Order Comment: Speci men Type: BLOOD SPECIMEN Ordering Facility: [facility] Address: [address] [place] [address] Performed By: #### 1 4196-0, 62335-3 #### [facility] [id number] [address] [place] [address] [place] Neutrophils/100 WBC (Bld) 61.8 % Normal [facility] Comment on above: Order Comment: Speci men Type: BLOOD SPECIMEN Ordering Facility: [facility] Address: [address] [place] [address] Performed By: #### 1 4196-0, 88443-5 #### [facility] [place] [id number] [address] [place] [address] [place] Nucleated RBC (Bld) [#/Vol] 10*3/uL Normal <0.01 [facility] Comment on above: Order Comment: Speci men Type: BLOOD SPECIMEN Ordering Facility: [facility] Address: [address] [place] [address] Performed By: #### 1 4196-0, 61035-7 #### [facility] [place] [id number] [address] [place] [address] [place] Nucleated RBC/100 WBC (Bld) [Ratio] 0.0 /100 WBC Normal [facility] Comment on above: Order Comment: Speci men Type: BLOOD SPECIMEN Ordering Facility: [facility] Address: [address] [place] [address] Performed By: #### 1 4196-0, 16946-2 #### [facility] [place] [id number] [address] [place] [address] [place] Platelet mean volume (Bld) [Entitic vol] 10.5 fL Normal 9.0-12.7 [facility] Comment on above: Order Comment: Speci men Type: BLOOD SPECIMEN Ordering Facility: [facility] Address: [address] [place] [address] Performed By: #### 1 4196-0, 54374-4 #### [facility] CLIA [id number] [address] [place] [address] [place] Platelets (Bld) [#/Vol] 325 10*3/uL Normal 150-400 [facility] Comment on above: Order Comment: Speci men Type: BLOOD SPECIMEN Ordering Facility: [facility] Address: [address] [place] [address] Result Comment: Resu lts checked and verified.No clot detected. Performed By: #### 1 4196-0, 76552-0 #### [facility] CLIA [id number] [address] [place] [address] [place] RBC (Bld) [#/Vol] 5.85 10*6/uL High 3.90-5.20 [facility] Comment on above: Order Comment: Speci men Type: BLOOD SPECIMEN Ordering Facility: [facility] Address: [address] [place] [address] Performed By: #### 1 4196-0, 06858-9 #### [facility] CLIA [id number] [address] [place] [address] [place] WBC (Bld) [#/Vol] 5.65 10*3/uL Normal 3.70-11.00 [facility] Comment on above: Order Comment: Speci men Type: BLOOD SPECIMEN Ordering Facility: [facility] Address: [address] [place] [address] Performed By: #### 1 4196-0, 48236-0 #### [facility] CLIA [id number] [address] [place] [address] [place] CNOVSPon 2023 CNOVSP Visit (SP) Office ([facility]) TORIE JOHNSTON ([id number]) 1990 F Date Time Provider Department 06/20/23 2:00 PM FRANCIS MA [facility] During your visit today, we recorded the following information about you: Pulse Respiration Blood pressure Weight 86/minute 20/minute 127/81 106.3 kg Height Last Period 1.6 m 06/17/23 Francis Ma MD 2023 2:44 PM Signed [facility] [place] Department of Hematologic Oncology and Blood Disorders PATIENT NAME: Torie Crowley [facility] NO: [id number] ATTENDING PHYSICIAN: Francis Ma MD. DATE OF [...] Abs Lymph 1.00 - 4.00 k/uL 1.42 [facility]% % 5.[address] [facility] <0.87 k/uL 0.21 Eosin% % 1.5 Abs [...] in 2018 during ). Her periods are manager primary now. She was placed on folic acid. She had COVID-19 infection in April. She has never received a COVID vaccination. PAST MEDICAL HISTORY Diagnosis Date Anemia 07/2020 referral Yamile Arreguinrosaliatroy GERD (gastroesophageal reflux disease) Thalassemia PAST SURGICAL [...] of transfusion (more content not included)... Normal [facility] Comprehensive metabolic 2000 panelon 2023 Albumin [Mass/Vol] 4.4 g/dL Normal 3.9-4.9 [facility] Comment on above: Order Comment: Speci men Type: BLOOD SPECIMEN Ordering Facility: [facility] Address: [address] [place] [address] Performed By: #### 2 4323-8, 64902-9 #### [facility] CLIA [id number] [address] [place] [address] [place] ALP [Catalytic activity/Vol] 68 U/L Normal 34-123 [facility] Comment on above: Order Comment: Speci men Type: BLOOD SPECIMEN Ordering Facility: [facility] Address: [address] [place] [address] Performed By: #### 2 4323-8, 24420-1 #### [facility] [place] [id number] [address] [place] [address] [place] ALT [Catalytic activity/Vol] 28 U/L Normal 7-38 [facility] Comment on above: Order Comment: Speci men Type: BLOOD SPECIMEN Ordering Facility: [facility] Address: [address] [place] [address] Performed By: #### 2 4323-8, 76662-4 #### [facility] [place] [id number] [address] [place] [address] [place] Anion gap [Moles/Vol] 10 mmol/L Normal 9-18 [facility] Comment on above: Order Comment: Speci men Type: BLOOD SPECIMEN Ordering Facility: [facility] Address: [address] [place] [address] Performed By: #### 2 4323-8, 84105-6 #### [facility] [place] [id number] [address] [place] [address] [place] AST [Catalytic activity/Vol] 22 U/L Normal 13-35 [facility] Comment on above: Order Comment: Speci men Type: BLOOD SPECIMEN Ordering Facility: [facility] Address: [address] [place] [address] Performed By: #### 2 4323-8, 64563-8 #### [facility] [place] [id number] [address] [place] [address] [place] Bilirubin [Mass/Vol] 0.4 mg/dL Normal 0.2-1.3 [facility] Comment on above: Order Comment: Speci men Type: BLOOD SPECIMEN Ordering Facility: [facility] Address: [address] [place] [address] Performed By: #### 2 4323-8, 75478-3 #### [facility] CLIA [id number] [address] [place] [address] [place] Calcium [Mass/Vol] 9.1 mg/dL Normal 8.5-10.2 [facility] Comment on above: Order Comment: Speci men Type: BLOOD SPECIMEN Ordering Facility: [facility] Address: [address] [place] [address] Performed By: #### 2 4323-8, 19907-6 #### [facility] CLIA [id number] [address] [place] [address] [place] Chloride [Moles/Vol] 106 mmol/L High 97-105 [facility] Comment on above: Order Comment: Speci men Type: BLOOD SPECIMEN Ordering Facility: [facility] Address: [address] [place] [address] Performed By: #### 2 4323-8, 76185-0 #### [facility] CLIA [id number] [address] [place] [address] [place] CO2 [Moles/Vol] 25 mmol/L Normal 22-30 [facility] Comment on above: Order Comment: Speci men Type: BLOOD SPECIMEN Ordering Facility: [facility] Address: [address] [place] [address] Performed By: #### 2 4323-8, 36269-0 #### [facility] CLIA [id number] [address] [place] [address] [place] Creatinine [Mass/Vol] 0.90 mg/dL Normal 0.58-0.96 [facility] Comment on above: Order Comment: Speci men Type: BLOOD SPECIMEN Ordering Facility: [facility] Address: [address] [place] [address] Performed By: #### 2 4323-8, 85919-2 #### [facility] [place] [id number] [address] [place] [address] [place] Creatinine and Glomerular filtration rate.predicted panel (S/P/Bld) 86 mL/min/1.73m??? Normal >=60 [facility] Comment on above: Order Comment: Tiffanie spence Type: BLOOD SPECIMEN Ordering Facility: [facility] Address: [address] [place] [address] Result Comment: Kenyatta mated Glomerular Filtration Rate [...] actual GFR. Performed By: #### 2 4323-8, 74765-4 #### [facility] [place] [id number] [address] [place] [address] [place] Glucose [Mass/Vol] 92 mg/dL Normal 74-99 [facility] Comment on above: Order Comment: Tiffanie spence Type: BLOOD SPECIMEN Ordering Facility: [facility] Address: [address] [place] [address] Result Comment: The [place] [employer] (ADA) provides guidance for cutoff [...] Standards of Medical Care in Diabetes 2016, [place] [employer]. Diabetes Care. 2016.39(Suppl 1). Performed By: #### 2 4323-8, 13349-5 #### [facility] [place] [id number] [address] [place] [address] [place] Potassium [Moles/Vol] 4.0 mmol/L Normal 3.7-5.1 [facility] Comment on above: Order Comment: Speci men Type: BLOOD SPECIMEN Ordering Facility: [facility] Address: [address] [place] [address] Performed By: #### 2 4323-8, 85036-6 #### [facility] [id number] [address] [place] [address] [place] Protein [Mass/Vol] 7.4 g/dL Normal 6.3-8.0 [facility] Comment on above: Order Comment: Speci men Type: BLOOD SPECIMEN Ordering Facility: [facility] Address: [address] [place] [address] Performed By: #### 2 4323-8, 95765-6 #### [facility] [id number] [address] [place] [address] [place] Sodium [Moles/Vol] 141 mmol/L Normal 136-144 [facility] Comment on above: Order Comment: Speci men Type: BLOOD SPECIMEN Ordering Facility: [facility] Address: [address] [place] [address] Performed By: #### 2 4323-8, 45417-0 #### [facility] [id number] [address] [place] [address] [place] Urea nitrogen [Mass/Vol] 16 mg/dL Normal 7-21 [facility] Comment on above: Order Comment: Speci men Type: BLOOD SPECIMEN Ordering Facility: [facility] Address: [address] [place] [address] Performed By: #### 2 4323-8, 98154-6 #### [facility] [id number] [address] [place], [place] [address] [place] Ferritin SerPl-mCncon 2023 Ferritin [Mass/Vol] 73.6 ng/mL Normal 14.7-205.1 [facility] Comment on above: Order Comment: Speci men Type: BLOOD SPECIMEN Ordering Facility: [facility] Address: [address] [place] [address] Performed By: #### 4 542-7, 2276-4 #### [facility] CLIA [id number] [address] [place] [address] [place] Haptoglob SerPl-mCncon 06-20 Haptoglobin [Mass/Vol] 66 mg/dL Normal 31-238 [facility] Comment on above: Order Comment: Speci men Type: BLOOD SPECIMEN Ordering Facility: [facility] Address: [address] [place] [address] Performed By: #### 4 542-7, 2276-4 #### [facility] CLIA [id number] [address] [place] [address] [place] Iron and Iron binding capaci ty panelon 2023 Iron [Mass/Vol] 66 ug/dL Normal 41-186 [facility] Comment on above: Order Comment: Speci men Type: BLOOD SPECIMEN Ordering Facility: [facility] Address: [address] [place] [address] Performed By: #### 2 4323-8, 24848-3 #### [facility] CLIA [id number] [address] [place] [address] [place] Iron binding capacity [Mass/Vol] 352 ug/dL Normal 232-386 [facility] Comment on above: Order Comment: Speci men Type: BLOOD SPECIMEN Ordering Facility: [facility] Address: [address] [place] [address] Performed By: #### 2 4323-8, 11584-4 #### [facility] CLIA [id number] [address] [place] [address] [place] Iron/TIBC [Molar ratio] 18.8 % Normal 15.0-57.0 [facility] Comment on above: Order Comment: Speci men Type: BLOOD SPECIMEN Ordering Facility: [facility] Address: [address] [place] [address] Performed By: #### 2 4323-8, 23970-8 #### [facility] [id number] [address] [place] [address] [place] LDH SerPl-cCncon 2023 LDH [Catalytic activity/Vol] 193 U/L Normal 135-214 [facility] Comment on above: Order Comment: Speci men Type: BLOOD SPECIMEN Ordering Facility: [facility] Address: [address] [place] [address] Performed By: #### 2 532-0 #### [facility] [id number] [address] [place] [address] [place] Retics #on 2023 Reticulocytes (Bld) [#/Vol] 0.19889 10*3/uL High 0.018-0.100 [facility] Comment on above: Order Comment: Speci men Type: BLOOD SPECIMEN Ordering Facility: [facility] Address: [address] [place] [address] Performed By: #### 1 4196-0, 27399-6 #### [facility] [id number] [address] [place] [address] [place] Reticulocytes (Bld) [#/Vol]o n 2023 Reticulocytes/100 RBC (Bld) 2.2 % High 0.4-2.0 [facility] Comment on above: Order Comment: Speci men Type: BLOOD SPECIMEN Ordering Facility: [facility] Address: [address] [place] [address] Performed By: #### 1 4196-0, 03977-3 #### [facility] [id number] [address] [place] [address] OF [facility] CBC AUTO DIFFon 09-20-2022 BASO # 0.0 103/ul Normal 0.0-0.1 [facility] Comment on above: Performed By: #### C BC ####[facility] [address] [place] [address]Dr. Zuly Aparicio Basophils/100 WBC (Bld) 0.5 % Normal 0.2-2.0 [facility] Comment on above: Performed By: #### C BC ####[facility] [address] [place] [address]Dr. Zuly Aparicio EO # 0.1 103/ul Normal 0.0-0.7 [facility] Comment on above: Performed By: #### C BC ####[facility] [address] [place] [address]Dr. Zuly Aparicio Eosinophils/100 WBC (Bld) 1.5 % Normal 0.9-7.0 [facility] Comment on above: Performed By: #### C BC ####[facility] [address] [place] [address]Dr. Zuly Aparicio Erythrocyte distribution width (RBC) [Ratio] 15.8 % Critically high 11.0-15.0 [facility] Comment on above: Performed By: #### C BC ####[facility] [address] [place] [address]Dr. Zuly Aparicio Hematocrit (Bld) [Volume fraction] 34.1 % Critically low 36.0-48.0 [facility] Comment on above: Performed By: #### C BC ####[facility] [address] [place] [address]Dr. Zuly Aparicio Hemoglobin (Bld) [Mass/Vol] 10.1 g/dL Critically low 12.0-16.0 [facility] Comment on above: Performed By: #### C BC ####[facility] [address] [place] [address]Dr. Zuly Aparicio IG # 0.01 10e3/ul Normal 0.00-0.03 [facility] Comment on above: Performed By: #### C BC ####[facility] [address] [place] [id number]. Zuly Aparicio IG % 0.2 % Normal 0.0-0.5 [facility] Comment on above: Performed By: #### C BC ####[facility] [address] [place] [id number]. Zuly Aparicio LYMPH # 1.6 103/ul Normal 1.2-3.8 [facility] Comment on above: Performed By: #### C BC ####[facility] [address] [place] [id number]. Zuly Aparicio Lymphocytes/100 WBC (Bld) 39.2 % Normal 20.5-60.0 [facility] Comment on above: Performed By: #### C BC ####[facility] [address] [place] [id number]. Zuly Aparicio MANUAL DIFF REQ NO Normal [facility] Comment on above: Performed By: #### C BC ####[facility] [address] [place] [id number]. Zuly Aparicio MCH (RBC) [Entitic mass] 17.7 pg Critically low 26.7-34.0 [facility] Comment on above: Performed By: #### C BC ####[facility] [address] [place] [id number]. Zuly Aparicio MCHC (RBC) [Mass/Vol] 29.6 g/dL Critically low 29.9-35.2 [facility] Comment on above: Performed By: #### C BC ####[facility] [address] [place] [id number]. Zuly Aparicio MCV (RBC) [Entitic vol] 59.7 fL Critically low 81.0-99.0 [facility] Comment on above: Performed By: #### C BC ####[facility] [address] [place] [id number]. Zuly Aparicio MONO # 0.3 103/ul Normal 0.3-0.8 [facility] Comment on above: Performed By: #### C BC ####[facility] [address] [place] [id number]. Zuly Aparicio Monocytes/100 WBC (Bld) 6.5 % Normal 1.7-12.0 [facility] Comment on above: Performed By: #### C BC ####[facility] [address] [place] [id number]. Zuly Aparicio NEUT # 2.1 103/ul Normal 1.4-6.5 [facility] Comment on above: Performed By: #### C BC ####[facility] [address] [place] [id number]. Zuly Aparicio Neutrophils/100 WBC (Bld) 52.1 % Normal 43.0-75.0 [facility] Comment on above: Performed By: #### C BC ####[facility] [address] [place] [id number]. Zuly Aparicio Platelet mean volume (Bld) [Entitic vol] 10.0 fL Normal 9.5-13.5 [facility] Comment on above: Performed By: #### C BC ####[facility] [address] [place] [id number]. Zuly Aparicio PLT 333 103/ul Normal 150-450 [facility] Comment on above: Performed By: #### C BC ####[facility] [address] [place] [id number]. Zuly Aparicio RBC 5.71 106/ul Critically high 4.20-5.40 [facility] Comment on above: Performed By: #### C BC ####[facility] [address] [place] [id number]. Zuly Aparicio WBC 4.0 103/ul Normal 4.0-11.0 [facility] Comment on above: Performed By: #### C BC ####[facility] [address] [place] [id number]. Zuly Aparicio FREE T4on 09-20-2022 Free T4 [Mass/Vol] 1.11 ng/dL Normal 0.76-1.46 [facility] Comment on above: Performed By: #### E JEFERSON HOOPER #### [facility] [address] [place] [address] Dr. Zuly pAaricio IRONon 09-20-2022 Iron [Mass/Vol] 89.0 ug/dL Normal 50.0-170.0 [facility] Comment on above: Performed By: #### CHAYITO ASHERRO #### [facility] [address] [place] [address] Dr. Zuly Aparicio PROF 14(COMP METB)on 023 Albumin [Mass/Vol] 3.7 g/dL Normal 3.4-5.0 [facility] Comment on above: Performed By: #### CHAYITO ASHERRO #### [facility] [address] [place] [address] Dr. Zuly Aparicio Albumin/Globulin [Mass ratio] 1.0 {ratio} Normal [facility] Comment on above: Performed By: #### CHAYITO ASHERRO #### [facility] [address] [place] [address] Dr. Zuly Aparicio ALP [Catalytic activity/Vol] 63 U/L Normal 46-116 [facility] Comment on above: Performed By: #### CHAYITO ASHERRO #### [facility] [address] [place] [address] Dr. Zuly Aparicio ALT [Catalytic activity/Vol] 50 U/L Normal 14-59 [facility] Comment on above: Performed By: #### CHAYITO ASHERRO #### [facility] [address] [place] [address] Dr. Zuly Aparicio Anion gap [Moles/Vol] 10.4 mmol/L Normal [facility] Comment on above: Performed By: #### CHAYITO ASHERRO #### [facility] [address] [place] [address] Dr. Zuly Aparicio AST [Catalytic activity/Vol] 24 U/L Normal 15-37 [facility] Comment on above: Performed By: #### JEFERSON ASHER #### [facility] [address] [place] [address] Dr. Zuly Aparicio Bilirubin [Mass/Vol] 0.5 mg/dL Normal 0.2-1.0 [facility] Comment on above: Performed By: #### CHAYITO ASHERRO #### [facility] [address] [place] [address] Dr. Zuly Aparicio Calcium [Mass/Vol] 8.8 mg/dL Normal 8.5-10.1 [facility] Comment on above: Performed By: #### CHAYITO ASHERRO #### [facility] [address] [place] [address] Dr. Zuly Aparicio Chloride [Moles/Vol] 108 mmol/L Critically high 98-107 [facility] Comment on above: Performed By: #### CHAYITO ASHERRO #### [facility] [address] [place] [address] Dr. Zuly Aparicio CO2 [Moles/Vol] 27.5 mmol/L Normal 21.0-32.0 [facility] Comment on above: Performed By: #### CHAYITO ASHERRO #### [facility] [address] [place] [address] Dr. Zuly Aparicio Creatinine [Mass/Vol] 0.94 mg/dL Normal 0.55-1.02 [facility] Comment on above: Performed By: #### CHAYITO ASHERRO #### [facility] [address] [place] [address] Dr. Zuly Aparicio EGFR-AF [place]ING[place]OREAN >60 Normal >=60 [facility] Comment on above: Performed By: #### CHAYITO ASHERRO #### [facility] [address] [place] [address] Dr. Zuly Aparicio EGFR-NON AF [place]OREAN >60 Normal >=60 [facility] Comment on above: Performed By: #### CHAYITO ASHERRO #### [facility] [address] [place] [address] Dr. Zuly Aparicio Globulin (S) [Mass/Vol] 3.7 g/dL Normal [facility] Comment on above: Performed By: #### CHAYITO ASHERRO #### [facility] [address] [place] [address] [address] Zuly Aparicio Glucose [Mass/Vol] 83 mg/dL Normal 74-106 [facility] Comment on above: Performed By: #### Roshan HOOPER UMICRO #### [facility] [address] [place] [address] [address] Zuly Aparicio Potassium [Moles/Vol] 3.9 mmol/L Normal 3.5-5.1 [facility] Comment on above: Performed By: #### Roshan HOOPER UMICRO #### [facility] [address] [place] [address] Dr. Zuly Aparicio Protein [Mass/Vol] 7.4 g/dL Normal 6.4-8.2 [facility] Comment on above: Performed By: #### Roshan HOOPER UMFAVIOLARO #### [facility] [address] [place] [address] Dr. Zuly Aparicio Sodium [Moles/Vol] 142 mmol/L Normal 136-145 [facility] Comment on above: Performed By: #### Roshan HOOPER UMICRO #### [facility] [address] [place] [address] Dr. Zuly Aparicio Urea nitrogen [Mass/Vol] 14.0 mg/dL Normal 7.0-18.0 [facility] Comment on above: Performed By: #### Roshan HOOPER UMICRO #### [facility] [address] [place] [address] [address] Zuly Aparicio Urea nitrogen/Creatinine [Mass ratio] 14.9 mg/mg Normal [facility] Comment on above: Performed By: #### Roshan HOOPER UMICRO #### [facility] [address] [place] [address] Dr. Zuly Aparicio TSHon 09-20-2022 TSH 1.491 uIU/mL Normal 0.358-3.740 [facility] Comment on above: Performed By: #### Roshan HOOPER UMICRO #### [facility] [address] [place] [address] Dr. Zuly Aparicio VC INJ SCL MILTON GRILL ATTENDANT VEINSon 0 4-11-2023 VC INJ SCL MILTON GRILL ATTENDANT VEINS Patient: TORIE JOHNSTON Exam Date: 09/04/2022 : 1990 Gender:F Ordering : DR SADI JEWELL M.D. Admission #: [id number] Family : Order #: [id number] CLICK HERE TO VIEW EXAM RADIOLOGY REPORT [...] M.D. on 09/04/2022 at 12:00 Normal [facility] Covid-19 PCR (CVDTBH)on SARS-CoV-2 (COVID-19) RNA BORIS+probe Ql (Unsp spec) Not detected Normal NOT DETECTED [facility] Comment on above: Result Comment: This test is not yet approved or cleared by the [place] FDA. When there are no FDA-approved or cleared tests available, and other criteria are met, FDA can make tests available under an emergency access mechanism called an Emergency Use Authorization (EUA). The EUA for this test is supported by the [place] of Health and Human Service's (HHS's) declaration [...] SARS-CoV-2. Performed By: #### T SH #### [facility] [address] [place] [address] Dr. Zuly Aparicio INFLUENZA A AND B AGon 08-27 INFLUANEGH SEE BELOW Normal [facility] Comment on above: Result Comment: Nega tive for Flu A protein angiten. Infection due to Flu A cannot be ruled out. Flu A angiten in the sample may be below the detection limit of the test. Performed By: #### T SH #### [facility] [address] [place] [address] Dr. Zuly Aparicio INFLUBNEGH SEE BELOW Normal [facility] Comment on above: Result Comment: Nega tive for Flu B protein antigen. Infection due to Flu B cannot be ruled out. Flu B antigen in the sample may be below the detection limit of the test. Performed By: #### T SH #### [facility] [address] [place] [address] Dr. Zuly Aparicio INFLUENZA A AG Negative Normal NEGATIVE SEE COMMENT [facility] Comment on above: Performed By: #### T SH #### [facility] [address] [place] [address] Dr. Zuly Aparicio INFLUENZA B AG Negative Normal NEGATIVE SEE COMMENT [facility] Comment on above: Performed By: #### T SH #### [facility] [address] [place] [address] Dr. Zuly Aparicio SYMPTOMATIC COVID-19 ANTIGEN on 08-27-2022 EUA Statement SEE BELOW Normal [facility] Comment on above: Result Comment: This test [...] sooner. Performed By: #### C VDAGS #### [facility] [address] [place] [address] Dr. Zuly Aparicio SARS-CoV-2 (COVID-19) RNA BORIS+probe Ql (Unsp spec) Negative Normal NEGATIVE [facility] Comment on above: Performed By: #### C VDAGS #### [facility] [address] [place] [address] Dr. Zuly Aparicio XR CHEST 1 Von [...] JOSE WOOD Date: 2022-08-27 17:17 Normal [facility] VC CONSULT FOLLOWUPon 2022 VC CONSULT FOLLOWUP Patient: TORIE JOHNSTON Exam Date: 08/21/2022 : 1990 Gender:F Ordering : DR SADI JEWELL M.D. Admission #: [id number] Family : Order #: [id number] CLICK HERE TO VIEW EXAM RADIOLOGY REPORT [...] Sadi Jewell MD on 08/21/2022 at 11:18 [facility] VC EXT VENOUS RT LIMITEDon 0 08-21-2022 VC EXT VENOUS RT LIMITED Patient: TORIE JOHNSTON Exam Date: 08/21/2022 : 1990 Gender:F Ordering : DR SADI JEWELL M.D. Admission #: [id number] Family : Order #: [id number] CLICK HERE TO VIEW EXAM RADIOLOGY REPORT [...] Sadi Jewell MD on 08/21/2022 at 09:43 [facility] VC INJ FOAM SCLERO W US MLTI on 08-16-2022 VC INJ FOAM SCLERO W US MLTI Patient: TORIE JOHNSTON Exam Date: 08/16/2022 : 1990 Gender:F Ordering : DR SADI JEWELL M.D. Admission #: [id number] Family : Order #: [id number] CLICK HERE TO VIEW EXAM RADIOLOGY REPORT [...] Jose Wood M.D. on 08/16/2022 at 11:58 [facility] W MANUAL DIFFon 05-16- 22 ATYPICAL LYMPH # 0.32 103/ul Normal [facility] Comment on above: Performed By: #### T SH #### [facility] [address] [place] [address] Dr. Zuly Aparicio ATYPICAL LYMPH % 3 % Normal [facility] Comment on above: Performed By: #### T SH #### [facility] [address] [address] [address] Zuly Aparicio BAND # 0.0 103/ul Normal 0.0-0.3 [facility] Comment on above: Performed By: #### T SH #### [facility] [address] [place] [address] Dr. Zuly Aparicio BAND % 0 % Normal 0-5 [facility] Comment on above: Performed By: #### T SH #### [facility] [address] [place] [address] Dr. Zuly Aparicio BASOM # 0.00 103/ul Normal 0.00-0.10 [facility] Comment on above: Performed By: #### T SH #### [facility] [address] [place] [address] Dr. Zuly Aparicio BASOM % 0.0 % Critically low 0.2-2.0 [facility] Comment on above: Performed By: #### T SH #### [facility] [address] [place] [address] Dr. Zuly Aparicio BLAST # Normal [facility] Comment on above: Performed By: #### T SH #### [facility] [address] [place] [address] Dr. Zuly Aparicio BLAST % Normal [facility] Comment on above: Performed By: #### T SH #### [facility] [address] [place] [address] Dr. Zuly Aparicio CORRECTED WBC Normal 4.0-11.0 [facility] Comment on above: Performed By: #### T SH #### [facility] [address] [place] [address] Dr. Zuly Aparicio EOS # 0.10 103/ul Normal 0.00-0.70 [facility] Comment on above: Performed By: #### T SH #### [facility] [address] [address] [address] Zuly Aparicio EOS% 1.0 % Normal 0.9-7.0 [facility] Comment on above: Performed By: #### T SH #### [facility] [address] [address] [address] Zuly Aparicio HCT 34.3 % Critically low 36.0-48.0 [facility] Comment on above: Performed By: #### T SH #### [facility] [address] [address] [address] Zuly Aparicio HGB 10.6 g/dl Critically low 12.0-16.0 [facility] Comment on above: Performed By: #### T SH #### [facility] [address] [place] [address] Dr. Zuly Aparicio LYMPHM # 0.32 103/ul Critically low 1.20-3.80 [facility] Comment on above: Performed By: #### T SH #### [facility] [address] [address] [address] Zuly Aparicio LYMPHM% 3.0 % Critically low 20.5-60.0 [facility] Comment on above: Performed By: #### T SH #### [facility] [address] [address] [address] Zuly Aparicio MCH 18.2 pg Critically low 26.7-34.0 [facility] Comment on above: Performed By: #### T SH #### [facility] [address] [address] [address] Zuly Aparicio MCHC 30.9 g/dl Normal 29.9-35.2 [facility] Comment on above: Performed By: #### T SH #### [facility] [address] [place] [address] Dr. Zuly Aparicio MCV 59.0 fL Critically low 81.0-99.0 [facility] Comment on above: Performed By: #### T SH #### [facility] [address] [place] [address] Dr. Zuly Aparicio METAMYELOCYTE # Normal [facility] Comment on above: Performed By: #### T SH #### [facility] [address] [place] [address] Dr. Zuly Aparicio METAMYELOCYTE % Normal [facility] Comment on above: Performed By: #### T SH #### [facility] [address] [place] [address] Dr. Zuly Aparicio MICROCYTOSIS 3+ Normal [facility] Comment on above: Performed By: #### T SH #### [facility] [address] [place] [address] Dr. Zuly Aparicio MONOM# 0.32 103/ul Normal 0.30-0.80 [facility] Comment on above: Performed By: #### T SH #### [facility] [address] [place] [address] Dr. Zuly Aparicio MONOM% 3.0 % Normal 1.7-12.0 [facility] Comment on above: Performed By: #### T SH #### [facility] [address] [place] [address] Dr. Zuly Aparicio MPV 10.6 fL Normal 9.5-13.5 [facility] Comment on above: Performed By: #### T SH #### [facility] [address] [place] [address] Dr. Zuly Aparicio MYELOCYTE # Normal [facility] Comment on above: Performed By: #### T SH #### [facility] [address] [place] [address] Dr. Zuly Aparicio MYELOCYTE % Normal [facility] Comment on above: Performed By: #### T SH #### [facility] [address] [place] [address] Dr. Zuly Aparicio NRBC Normal [facility] Comment on above: Performed By: #### T SH #### [facility] [address] [place] [address] Dr. Zuly Aparicio OVALOCYTES SLIGHT Normal [facility] Comment on above: Performed By: #### T SH #### [facility] [address] [address] [address] Zuly Aparicio PLT 290 103/ul Normal 150-450 [facility] Comment on above: Performed By: #### T SH #### [facility] [address] [address] [address] Zuly Aparicio RBC 5.81 106/ul Critically high 4.20-5.40 [facility] Comment on above: Performed By: #### T SH #### [facility] [address] [address] [address] Zuly Aparicio RDW 15.4 % Critically high 11.0-15.0 [facility] Comment on above: Performed By: #### T SH #### [facility] [address] [address] [address] Zuly Aparicio SEG # 9.45 103/ul Critically high 1.40-6.50 [facility] Comment on above: Performed By: #### T SH #### [facility] [address] [address] [address] Zuly Aparicio SEG % 90.0 % Critically high 43.0-75.0 [facility] Comment on above: Performed By: #### T SH #### [facility] [address] [address] [address] Zuly Aparicio TOXIC GRANULATION SLIGHT Normal [facility] Comment on above: Performed By: #### T SH #### [facility] [address] [address] [address] Zuly Aparicio WBC 10.5 103/ul Normal 4.0-11.0 [facility] Comment on above: Performed By: #### T SH #### [facility] [address] [address] [address] Zuly Aparicio CULTURE URINEon 05-16-2022 CULTURE URINE Culture Observations : LIGHT GROWTH OF MIXED GENITAL JI. NO POTENTIAL PATHOGENS SEEN. Normal [facility] Comment on above: Performed By: #### U RCX ####[facility] [address] [place] [address]Dr. Zuly Aparicio Covid-19 PCR (CVDTBH)on 04-27 SARS-CoV-2 (COVID-19) RNA BORIS+probe Ql (Unsp spec) Not detected Normal NOT DETECTED [facility] Comment on above: Result Comment: This test is not yet approved or cleared by the [place] FDA. When there are no FDA-approved or cleared tests available, and other criteria are met, FDA can make tests available under an emergency access mechanism called an Emergency Use Authorization (EUA). The EUA for this test is supported by the [place] of Health and Human Service's (HHS's) declaration [...] SARS-CoV-2. Performed By: #### T SH #### [facility] [address] [place] [address] Dr. Zuly Aparicio ER URINE PROFILEon 2 Bilirubin Ql (U) Negative Normal NEGATIVE [facility] Comment on above: Performed By: #### T SH #### [facility] [address] [place] [address] Dr. Zuly Aparicio Clarity (U) CLEAR Normal CLEAR [facility] Comment on above: Performed By: #### T SH #### [facility] [address] [place] [address] Dr. Zuly Aparicio Color (U) YELLOW Normal YELLOW [facility] Comment on above: Performed By: #### T SH #### [facility] [address] [place] [address] Dr. Zuly JUDD A micrscopic examination will be performed if indicated. Normal [facility] Comment on above: Performed By: #### T SH #### [facility] [address] [place] [address] Dr. Zuly Aparicio Glucose Ql (U) Negative Normal NEGATIVE [facility] Comment on above: Performed By: #### T SH #### [facility] [address] [place] [address] Dr. Zuly Aparicio Hemoglobin Ql (U) Negative Normal NEGATIVE [facility] Comment on above: Performed By: #### T SH #### [facility] [address] [place] [address] Dr. Zuly Aparicio Ketones Ql (U) TRACE Abnormal NEGATIVE [facility] Comment on above: Performed By: #### T SH #### [facility] [address] [place] [address] Dr. Zuly Aparicio LEUKOCYTES TRACE Abnormal NEGATIVE [facility] Comment on above: Performed By: #### T SH #### [facility] [address] [place] [address] Dr. Zuly Aparicio Nitrite Ql (U) Negative Normal NEGATIVE [facility] Comment on above: Performed By: #### T SH #### [facility] [address] [place] [address] Dr. Zuly Aparicio pH (U) 5.5 [pH] Normal 5-9 [facility] Comment on above: Performed By: #### T SH #### [facility] [address] [place] [address] Dr. Zuly Aparicio SPEC GRAVITY 1.020 Normal 1.005-<=1.02 5 [facility] Comment on above: Performed By: #### T SH #### [facility] [address] [place] [address] Dr. Zuly Aparicio UA PROTEIN Negative Normal NEGATIVE/ TRACE [facility] Comment on above: Performed By: #### T SH #### [facility] [address] [place] [address] Dr. Zuly Aparicio UR MICRO IND INDICATED Normal [facility] Comment on above: Performed By: #### T SH #### [facility] [address] [place] [address] Dr. Zuly Aparicio Urobilinogen Qn (U) 1.0 {Isamar'U}/dL Normal 0.2 - 1. 0 [facility] Comment on above: Performed By: #### T SH #### [facility] [address] [address] [address] Zuly Aparicio INFLUENZA A AND B AGon 05-16 INFLUENZA A AG Negative Normal NEGATIVE SEE COMMENT [facility] Comment on above: Performed By: #### I NFLUAB #### [facility] [address] [address] [address] Zuly Aparicio INFLUENZA B AG Negative Normal NEGATIVE SEE COMMENT [facility] Comment on above: Performed By: #### I NFLUAB #### [facility] [address] [address] [address] Zuly Aparicio INTERNAL CONTROLS Within Normal Limits Normal Wi thin Normal Limits [facility] Comment on above: Performed By: #### I NFLUAB #### [facility] [address] [address] [address] Zuly Aparicio PREG HCG QUALon 05-16-2022 , QUAL Negative Normal NEGATIVE [facility] Comment on above: Performed By: #### T SH #### [facility] [address] [address] [address] Zuly Aparicio PROF 14(COMP METB)on 022 Albumin [Mass/Vol] 3.6 g/dL Normal 3.4-5.0 [facility] Comment on above: Performed By: #### C MP #### [facility] [address] [place] [address] Dr. Zuly Aparicio Albumin/Globulin [Mass ratio] 0.9 {ratio} Normal [facility] Comment on above: Performed By: #### C MP #### [facility] [address] [place] [address] Dr. Zuly Aparicio ALP [Catalytic activity/Vol] 88 U/L Normal 46-116 [facility] Comment on above: Performed By: #### C MP #### [facility] [address] [place] [address] Dr. Zuly Aparicio ALT [Catalytic activity/Vol] 52 U/L Normal 14-59 [facility] Comment on above: Performed By: #### C MP #### [facility] [address] [address] [address] Zuly Aparicio Anion gap [Moles/Vol] 13.4 mmol/L Normal [facility] Comment on above: Performed By: #### C MP #### [facility] [address] [address] [address] Zuly Aparicio AST [Catalytic activity/Vol] 29 U/L Normal 15-37 [facility] Comment on above: Performed By: #### C MP #### [facility] [address] [place] [address] Dr. Zuly Aparicio Bilirubin [Mass/Vol] 1.2 mg/dL Critically high 0.2-1.0 [facility] Comment on above: Performed By: #### C MP #### [facility] [address] [place] [address] Dr. Zuly Aparicio Calcium [Mass/Vol] 8.7 mg/dL Normal 8.5-10.1 [facility] Comment on above: Performed By: #### C MP #### [facility] [address] [place] [address] Dr. Zuly Aparicio Chloride [Moles/Vol] 101 mmol/L Normal 98-107 [facility] Comment on above: Performed By: #### C MP #### [facility] [address] [place] [address] Dr. Zuly Aparicio CO2 [Moles/Vol] 25.5 mmol/L Normal 21.0-32.0 [facility] Comment on above: Performed By: #### C MP #### [facility] [address] [place] [address] Dr. Zuly Aparicio Creatinine [Mass/Vol] 1.07 mg/dL Critically high 0.55-1.02 [facility] Comment on above: Performed By: #### C MP #### [facility] [address] [place] [address] Dr. Zuly Aparicio EGFR-AF SINGAPOREAN >60 Normal >=60 [facility] Comment on above: Performed By: #### C MP #### [facility] [address] [place] [address] Dr. Zuly Aparicio EGFR-NON AF SINGAPOREAN 59 mL/min/1.73m2 Critically low >=60 [facility] Comment on above: Performed By: #### C MP #### [facility] [address] [address] [address] Zuly Aparicio Globulin (S) [Mass/Vol] 4.0 g/dL Normal [facility] Comment on above: Performed By: #### C MP #### [facility] [address] [address] [address] Zuly Aparicio Glucose [Mass/Vol] 111 mg/dL Critically high 74-106 T [facility] Comment on above: Performed By: #### C MP #### [facility] [address] [place] [address] Dr. Zuly Aparicio Potassium [Moles/Vol] 3.9 mmol/L Normal 3.5-5.1 [facility] Comment on above: Performed By: #### C MP #### [facility] [address] [address] [address] Zuly Aparicio Protein [Mass/Vol] 7.6 g/dL Normal 6.4-8.2 [facility] Comment on above: Performed By: #### C MP #### [facility] [address] [place] [address] Dr. Zuly Aparicio Sodium [Moles/Vol] 136 mmol/L Normal 136-145 [facility] Comment on above: Performed By: #### C MP #### [facility] [address] [address] [address] uZly Aparicio Urea nitrogen [Mass/Vol] 11.0 mg/dL Normal 7.0-18.0 [facility] Comment on above: Performed By: #### C MP #### [facility] [address] [place] [address] Dr. Zuly Aparicio Urea nitrogen/Creatinine [Mass ratio] 10.3 mg/mg Normal [facility] Comment on above: Performed By: #### C MP #### [facility] [address] [place] [address] Dr. Zuly Aparicio STREPT SCREENon 05-16-2022 STREP SCREEN A Positive Abnormal NEGATIVE [facility] Comment on above: Performed By: #### E CHAYITO HOOPERRO #### [facility] [address] [place] [address] Dr. Zuly Aparicio URINE MICROSCOPIC ONLYon BACTERIA MODERATE Abnormal NONE SEEN [facility] Comment on above: Performed By: #### T SH #### [facility] [address] [place] [address] Dr. Zuly Aparicio Bacteria identified Cx Nom (U) INDICATED Normal [facility] Comment on above: Performed By: #### T SH #### [facility] [address] [place] [address] Dr. Zuly Aparicio CAST NONE SEEN Normal NONE SEEN [facility] Comment on above: Performed By: #### T SH #### [facility] [address] [place] [address] Dr. Zuly Aparicio Crystals LM Nom (Urine sed) NONE SEEN Normal NONE SEEN [facility] Comment on above: Performed By: #### T SH #### [facility] [address] [place] [address] Dr. Zuly Aparicio Epithelial cells LM Ql (Urine sed) MANY Abnormal NONE SEEN /RARE [facility] Comment on above: Performed By: #### T SH #### [facility] [address] [place] [address] Dr. Zuly Aparicio MUCOUS NONE SEEN Normal NONE SEEN [facility] Comment on above: Performed By: #### T SH #### [facility] [address] [place] [address] Dr. Zuly Aparicio RBC 2-5 Abnormal 0-2 [facility] Comment on above: Performed By: #### T SH #### [facility] [address] [place] [address] Dr. Zuly Aparicio WBC 5-10 Abnormal NONE SEEN [facility] Comment on above: Performed By: #### T SH #### [facility] [address] [place] [address] Dr. Zuly Aparicio XR CHEST 1 Von [...] PAKO JERRY Date: 2022-05-16 05:03 Normal [facility] AMYLASEon 04-19-2022 Amylase [Catalytic activity/Vol] 41 U/L Normal 25-115 [facility] Comment on above: Performed By: #### L IPA, ANA #### [facility] [address], [place] [address] Dr. Zuly Aparicio CBC AUTO DIFFon 04-19-2022 BASO # 0.0 103/ul Normal 0.0-0.1 [facility] Comment on above: Performed By: #### C BC ####[facility] [address] [id number]. Zuly Aparicio Basophils/100 WBC (Bld) 0.4 % Normal 0.2-2.0 [facility] Comment on above: Performed By: #### C BC ####[facility] [address] [id number]. Zuly Aparicio EO # 0.2 103/ul Normal 0.0-0.7 [facility] Comment on above: Performed By: #### C BC ####[facility] [address] [address]Dr. Zuly Aparicio Eosinophils/100 WBC (Bld) 3.2 % Normal 0.9-7.0 [facility] Comment on above: Performed By: #### C BC ####[facility] [address] [id number] Aparicio Erythrocyte distribution width (RBC) [Ratio] 15.7 % Critically high 11.0-15.0 [facility] Comment on above: Performed By: #### C BC ####[facility] [address] [id number]. Zuly Aparicio Hematocrit (Bld) [Volume fraction] 33.1 % Critically low 36.0-48.0 [facility] Comment on above: Performed By: #### C BC ####[facility] [address] [address]Dr. Zuly Paaricio Hemoglobin (Bld) [Mass/Vol] 10.3 g/dL Critically low 12.0-16.0 [facility] Comment on above: Performed By: #### C BC ####[facility] [address] [address]Dr. Lolacuauhtemoc Markus IG # 0.01 10e3/ul Normal 0.00-0.03 [facility] Comment on above: Performed By: #### C BC ####[facility] [address] [place], [place] [address]Dr. Zuly Aparicio IG % 0.2 % Normal 0.0-0.5 [facility] Comment on above: Performed By: #### C BC ####[facility] [address] [place], [place] [address]Dr. Zuly Aparicio LYMPH # 1.8 103/ul Normal 1.2-3.8 [facility] Comment on above: Performed By: #### C BC ####[facility] [address] [place], [place] [address]Dr. Zuly Aparicio Lymphocytes/100 WBC (Bld) 34.5 % Normal 20.5-60.0 [facility] Comment on above: Performed By: #### C BC ####[facility] [address] [place], [place] [address]Dr. Zuly Aparicio MANUAL DIFF REQ NO Normal [facility] Comment on above: Performed By: #### C BC ####[facility] [address] [place], [place] [address]Dr. Zuly Aparicio MCH (RBC) [Entitic mass] 18.5 pg Critically low 26.7-34.0 [facility] Comment on above: Performed By: #### C BC ####[facility] [address] [place], [place] [address]Dr. Zuly Aparicio MCHC (RBC) [Mass/Vol] 31.1 g/dL Normal 29.9-35.2 [facility] Comment on above: Performed By: #### C BC ####[facility] [address] [id number]. Zuly Aparicio MCV (RBC) [Entitic vol] 59.3 fL Critically low 81.0-99.0 [facility] Comment on above: Performed By: #### C BC ####[facility] [address] [address]Dr. Zuly Markus MONO # 0.3 103/ul Normal 0.3-0.8 [facility] Comment on above: Performed By: #### C BC ####[facility] [address] [address]Dr. Lolacuauhtemoc Aparicio Monocytes/100 WBC (Bld) 5.9 % Normal 1.7-12.0 [facility] Comment on above: Performed By: #### C BC ####[facility] [address] [place], [place] [address]Dr. Zuly Aparicio NEUT # 2.9 103/ul Normal 1.4-6.5 [facility] Comment on above: Performed By: #### C BC ####[facility] [address] [place], [place] [address]Dr. Lolacuauhtemoc Aparicio Neutrophils/100 WBC (Bld) 55.8 % Normal 43.0-75.0 [facility] Comment on above: Performed By: #### C BC ####[facility] [address] [place], [place] [address]Dr. Lolacuauhtemoc Apariico Platelet mean volume (Bld) [Entitic vol] 10.1 fL Normal 9.5-13.5 [facility] Comment on above: Performed By: #### C BC ####[facility] [address] [place], [place] [address]Dr. Zuly Aparicio PLT 341 103/ul Normal 150-450 [facility] Comment on above: Performed By: #### C BC ####[facility] [address] [id number]. Zuly Aparicio RBC 5.58 106/ul Critically high 4.20-5.40 [facility] Comment on above: Performed By: #### C BC ####[facility] [address] [place], [place] [address]LuNikia Aparicio WBC 5.3 103/ul Normal 4.0-11.0 [facility] Comment on above: Performed By: #### C BC ####[facility] [address] [place], [place] [address]Fh. Zuly A[address] CT ABD/PELVIS WO CONon 04-19 [...] appendix is not visualized. Electronically authenticated by: JOSEDANI RICKETTS Date: 2022-04-19 21:52 Normal [facility] ER URINE PROFILEon 2 Bilirubin Ql (U) Negative Normal NEGATIVE [facility] Comment on above: Performed By: #### E RUR, PREGU ####[facility] [address] [place], [place] [address]Dr. Yilan Aparicio Clarity (U) CLEAR Normal CLEAR [facility] Comment on above: Performed By: #### E RUR, PREGU ####[facility] [address] [place], [place] [address]Dr. Yilan Aparicio Color (U) LT. YELLOW Normal YELLOW [facility] Comment on above: Performed By: #### E RUR, PREGU ####[facility] [address] [place], [place] [address]Dr. Yilan Aparicio ERUAHD A micrscopic examination will be performed if indicated. Normal [facility] Comment on above: Performed By: #### E RUR, PREGU ####[facility] [address] [place], [place] [address]Dr. Yilan Aparicio Glucose Ql (U) Negative Normal NEGATIVE [facility] Comment on above: Performed By: #### E RUR, PREGU ####[facility] [address] [place], [place] [address]Dr. Yilan Aparicio Hemoglobin Ql (U) Negative Normal NEGATIVE [facility] Comment on above: Performed By: #### E RUR, PREGU ####[facility] [address] [place], [place] [address]Dr. Yilan Aparicio Ketones Ql (U) Negative Normal NEGATIVE [facility] Comment on above: Performed By: #### E RUR, PREGU ####[facility] [address] [place], [place] [address]Dr. Yilan Aparicio LEUKOCYTES Negative Normal NEGATIVE [facility] Comment on above: Performed By: #### E RUR, PREGU ####[facility] [address] [place], [place] [address]Dr. Yilan Aparicio Nitrite Ql (U) Negative Normal NEGATIVE [facility] Comment on above: Performed By: #### E RUR, PREGU ####[facility] [address] [address]DrNikia Aparicio pH (U) 6.0 [pH] Normal 5-9 [facility] Comment on above: Performed By: #### E RUR, PREGU ####[facility] [address] [address]Dr. Zuly Aparicio SPEC GRAVITY 1.010 Normal 1.005-<=1.02 5 [facility] Comment on above: Performed By: #### E RUR, PREGU ####[facility] [address] [address]DrNikia Aparicio UA PROTEIN Negative Normal NEGATIVE/ TRACE [facility] Comment on above: Performed By: #### E RUR, PREGU ####[facility] [address] [place], [place] [address]Dr. Zuly Aparicio UR MICRO IND NOT INDICATED Normal [facility] Comment on above: Performed By: #### E RUR, PREGU ####[facility] [address] [place], [place] [address]DrNikia Aparicio Urobilinogen Qn (U) 0.2 {Isamar'U}/dL Normal 0.2 - 1. 0 [facility] Comment on above: Performed By: #### E RUR, PREGU ####[facility] [address] [place], [place] [address]DrNikia Aparicio LIPASEon 04-19-2022 Lipase [Catalytic activity/Vol] 161.0 U/L Normal 73.0-393.0 [facility] Comment on above: Performed By: #### L IPA, ANA #### [facility] [address] [address] [address] Zuly Aparicio URon 04-19-2022 , QUAL Negative Normal NEGATIVE [facility] Comment on above: Performed By: #### E RUR, PREGU ####[facility] [address] [place], [place] [address]Dr. Zuly Aparicio PROF 14(COMP METB)on 04-19- 022 Albumin [Mass/Vol] 3.9 g/dL Normal 3.4-5.0 [facility] Comment on above: Performed By: #### T SH #### [facility] [address] [place] [address] Dr. Zuly Aparicio Albumin/Globulin [Mass ratio] 1.1 {ratio} Normal [facility] Comment on above: Performed By: #### T SH #### [facility] [address] [place] [address] Dr. Zuly Aparicio ALP [Catalytic activity/Vol] 69 U/L Normal 46-116 [facility] Comment on above: Performed By: #### T SH #### [facility] [address] [place] [address] Dr. Zuly Aparicio ALT [Catalytic activity/Vol] 46 U/L Normal 14-59 [facility] Comment on above: Performed By: #### T SH #### [facility] [address] [place] [address] Dr. Zuly Aparicio Anion gap [Moles/Vol] 12.1 mmol/L Normal [facility] Comment on above: Performed By: #### T SH #### [facility] [address] [place] [address] Dr. Zuly Aparicio AST [Catalytic activity/Vol] 24 U/L Normal 15-37 [facility] Comment on above: Performed By: #### T SH #### [facility] [address] [place] [address] Dr. Zuly Aparicio Bilirubin [Mass/Vol] 0.5 mg/dL Normal 0.2-1.0 [facility] Comment on above: Performed By: #### T SH #### [facility] [address] [place] [address] Dr. Zuly Aparicio Calcium [Mass/Vol] 8.7 mg/dL Normal 8.5-10.1 [facility] Comment on above: Performed By: #### T SH #### [facility] [address] [place] [address] Dr. Zuly Aparicio Chloride [Moles/Vol] 106 mmol/L Normal 98-107 [facility] Comment on above: Performed By: #### T SH #### [facility] [address] [place] [address] Dr. Zuly Aparicio CO2 [Moles/Vol] 25.4 mmol/L Normal 21.0-32.0 [facility] Comment on above: Performed By: #### T SH #### [facility] [address] [address] [address] Zuly Aparicio Creatinine [Mass/Vol] 1.11 mg/dL Critically high 0.55-1.02 [facility] Comment on above: Performed By: #### T SH #### [facility] [address] [place] [address] Dr. Zuly Aparicio EGFR-AF SINGAPOREAN >60 Normal >=60 [facility] Comment on above: Performed By: #### T SH #### [facility] [address] [place] [address] Dr. Zuly Aparicio EGFR-NON AF SINGAPOREAN 57 mL/min/1.73m2 Critically low >=60 [facility] Comment on above: Performed By: #### T SH #### [facility] [address] [place] [address] Dr. Zuly Aparicio Globulin (S) [Mass/Vol] 3.5 g/dL Normal [facility] Comment on above: Performed By: #### T SH #### [facility] [address] [place] [address] Dr. Zuly Aparicio Glucose [Mass/Vol] 96 mg/dL Normal 74-106 [facility] Comment on above: Performed By: #### T SH #### [facility] [address] [place] [address] Dr. Zuly Aparicio Potassium [Moles/Vol] 3.5 mmol/L Normal 3.5-5.1 [facility] Comment on above: Performed By: #### T SH #### [facility] [address] [place] [address] Dr. Zuly Aparicio Protein [Mass/Vol] 7.4 g/dL Normal 6.4-8.[address] [facility] Comment on above: Performed By: #### T SH #### [facility] [address] [place] [address] Dr. Zuly Aparicio Sodium [Moles/Vol] 140 mmol/L Normal 136-145 [facility] Comment on above: Performed By: #### T SH #### [facility] [address] [place] [address] Dr. Zuly Aparicio Urea nitrogen [Mass/Vol] 12.0 mg/dL Normal 7.0-18.0 [facility] Comment on above: Performed By: #### T SH #### [facility] [address] [place] [address] Dr. Zuly Aparicio Urea nitrogen/Creatinine [Mass ratio] 10.8 mg/mg Normal [facility] Comment on above: Performed By: #### T SH #### [facility] [address] [place] [address] Dr. Zuly Aparicio CBC AUTO DIFFon 12-20-2021 BASO # 0.0 103/ul Normal 0.0-0.1 [facility] Comment on above: Performed By: #### T SH #### [facility] [address] [place] [address] Dr. Zuly Aparicio Basophils/100 WBC (Bld) 0.1 % Critically low 0.2-2.0 [facility] Comment on above: Performed By: #### T SH #### [facility] [address] [place] [address] Dr. Zuly Aparicio EO # 0.1 103/ul Normal 0.0-0.7 [facility] Comment on above: Performed By: #### T SH #### [facility] [address] [place] [address] Dr. Zuly Aparicio Eosinophils/100 WBC (Bld) 1.1 % Normal 0.9-7.0 [facility] Comment on above: Performed By: #### T SH #### [facility] [address] [place] [address] Dr. Zuly Aparicio Erythrocyte distribution width (RBC) [Ratio] 15.9 % Critically high 11.0-15.0 [facility] Comment on above: Performed By: #### T SH #### [facility] [address] [place] [address] Dr. Zuly Aparicio Hematocrit (Bld) [Volume fraction] 35.2 % Critically low 36.0-48.0 [facility] Comment on above: Performed By: #### T SH #### [facility] [address] [place] [address] Dr. Zuly Aparicio Hemoglobin (Bld) [Mass/Vol] 10.9 g/dL Critically low 12.0-16.0 [facility] Comment on above: Performed By: #### T SH #### [facility] [address] [place] [address] Dr. Zuly Aparicio IG # 0.02 10e3/ul Normal 0.00-0.03 [facility] Comment on above: Performed By: #### T SH #### [facility] [address] [place] [address] Dr. Zuly Aparicio IG % 0.3 % Normal 0.0-0.5 [facility] Comment on above: Performed By: #### T SH #### [facility] [address] [place] [address] Dr. Zuly Aparicio LYMPH # 2.0 103/ul Normal 1.2-3.8 [facility] Comment on above: Performed By: #### T SH #### [facility] [address] [place] [address] Dr. Zuly Aparicio Lymphocytes/100 WBC (Bld) 28.0 % Normal 20.5-60.0 [facility] Comment on above: Performed By: #### T SH #### [facility] [address] [place] [address] Dr. Zuly Aparicio MANUAL DIFF REQ NO Normal [facility] Comment on above: Performed By: #### T SH #### [facility] [address] [place] [address] Dr. Zuly Aparicio MCH (RBC) [Entitic mass] 18.4 pg Critically low 26.7-34.0 [facility] Comment on above: Performed By: #### T SH #### [facility] [address] [place] [address] Dr. Zuly Aparicio MCHC (RBC) [Mass/Vol] 31.0 g/dL Normal 29.9-35.2 [facility] Comment on above: Performed By: #### T SH #### [facility] [address] [place] [address] Dr. Zuly Aparicio MCV (RBC) [Entitic vol] 59.3 fL Critically low 81.0-99.0 [facility] Comment on above: Performed By: #### T SH #### [facility] [address] [place] [address] Dr. Zuly Aparicio MONO # 0.4 103/ul Normal 0.3-0.8 [facility] Comment on above: Performed By: #### T SH #### [facility] [address] [place] [address] Dr. Zuly Aparicio Monocytes/100 WBC (Bld) 4.8 % Normal 1.7-12.0 [facility] Comment on above: Performed By: #### T SH #### [facility] [address] [place] [address] Dr. Zuly Aparicio NEUT # 4.7 103/ul Normal 1.4-6.5 [facility] Comment on above: Performed By: #### T SH #### [facility] [address] [place] [address] Dr. Zuly Aparicio Neutrophils/100 WBC (Bld) 65.7 % Normal 43.0-75.0 [facility] Comment on above: Performed By: #### T SH #### [facility] [address] [place] [address] Dr. Zuly Aparicio Platelet mean volume (Bld) [Entitic vol] 10.2 fL Normal 9.5-13.5 [facility] Comment on above: Performed By: #### T SH #### [facility] [address] [place] [address] Dr. Zuly Apaircio PLT 338 103/ul Normal 150-450 [facility] Comment on above: Performed By: #### T SH #### [facility] [address], [place] [address] Dr. Zuly Aparicio RBC 5.94 106/ul Critically high 4.20-5.40 [facility] Comment on above: Performed By: #### T SH #### [facility] [address], [place] [address] Dr. Zuly Aparicio WBC 7.2 103/ul Normal 4.0-11.0 [facility] Comment on above: Performed By: #### T SH #### [facility] [address], [place] [address] HEAD WO CONon [...] LEROY PRETTY Date: 2021-12-20 21:04 Normal [facility] CULTURE URINEon 12-20-2021 CULTURE URINE Culture Observations : LIGHT GROWTH OF MIXED GENITAL JI. NO POTENTIAL PATHOGENS SEEN. Normal [facility] Comment on above: Performed By: #### U RCX ####[facility] [id number] [place] [address]Dr. Zuly Aparicio ER URINE PROFILEon 2 Bilirubin Ql (U) Negative Normal NEGATIVE [facility] Comment on above: Performed By: #### TASHA ASHERICRO #### [facility] [address] [address] [address] Zuly Aparicio Clarity (U) CLEAR Normal CLEAR [facility] Comment on above: Performed By: #### Roshan HOOPER UMICRO #### [facility] [address] [place] [address] Dr. Zuly Aparicio Color (U) LT. YELLOW Normal YELLOW [facility] Comment on above: Performed By: #### TASHA ASHERICRO #### [facility] [address] [place] [address] Dr. Zuly JUDD A micrscopic examination will be performed if indicated. Normal [facility] Comment on above: Performed By: #### TASHA ASHERICRO #### [facility] [address] [place] [address] Dr. Zuly Aparicio Glucose Ql (U) Negative Normal NEGATIVE [facility] Comment on above: Performed By: #### TASHA ASHERICRO #### [facility] [address] [place] [address] Dr. Zuly Aparicio Hemoglobin Ql (U) LARGE Abnormal NEGATIVE [facility] Comment on above: Performed By: #### Roshan HOOPER UMICRO #### [facility] [address] [address] [address] Zuly Aparicio Ketones Ql (U) Negative Normal NEGATIVE [facility] Comment on above: Performed By: #### Roshan HOOPER UMICRO #### [facility] [address] [place] [address] Dr. Zuly Aparicio LEUKOCYTES Negative Normal NEGATIVE [facility] Comment on above: Performed By: #### Roshan HOOPER UMICRO #### [facility] [address] [place] [address] Dr. Zuly Aparicio Nitrite Ql (U) Negative Normal NEGATIVE [facility] Comment on above: Performed By: #### CHAYITO ASHERRO #### [facility] [address] [place] [address] Dr. Zuly Aparicio pH (U) 6.0 [pH] Normal 5-9 [facility] Comment on above: Performed By: #### CHAYITO ASHERRO #### [facility] [address] [place] [address] Dr. Zuly Aparicio SPEC GRAVITY 1.015 Normal 1.005-<=1.02 5 [facility] Comment on above: Performed By: #### CHAYITO ASHERRO #### [facility] [address] [place] [address] Dr. Zuly Aparicio UA PROTEIN Negative Normal NEGATIVE/ TRACE [facility] Comment on above: Performed By: #### CHAYITO ASHERRO #### [facility] [address] [place] [address] Dr. Zuly Aparicio UR MICRO IND INDICATED Normal [facility] Comment on above: Performed By: #### Roshan HOOPER FAVIOLARO #### [facility] [address] [place] [address] Dr. Zuly Aparicio Urobilinogen Qn (U) 1.0 {Isamar'U}/dL Normal 0.2 - 1. 0 [facility] Comment on above: Performed By: #### Roshan HOOPER FAVIOLARO #### [facility] [address] [place] [address] Dr. Zuly Aparicio PROF 14(COMP METB)on 022 Albumin [Mass/Vol] 4.1 g/dL Normal 3.4-5.0 [facility] Comment on above: Performed By: #### T SH #### [facility] [address] [place] [address] Dr. Zuly Aparicio Albumin/Globulin [Mass ratio] 1.1 {ratio} Normal [facility] Comment on above: Performed By: #### T SH #### [facility] [address] [place] [address] Dr. Zuly Aparicio ALP [Catalytic activity/Vol] 60 U/L Normal 46-116 [facility] Comment on above: Performed By: #### T SH #### [facility] [address] [address] [address] Zuly Aparicio ALT [Catalytic activity/Vol] 52 U/L Normal 14-59 [facility] Comment on above: Performed By: #### T SH #### [facility] [address] [place] [address] Dr. Zuyl Aparicio Anion gap [Moles/Vol] 11.4 mmol/L Normal [facility] Comment on above: Performed By: #### T SH #### [facility] [address] [place] [address] Dr. Zuly Aparicio AST [Catalytic activity/Vol] 25 U/L Normal 15-37 [facility] Comment on above: Performed By: #### T SH #### [facility] [address] [place] [address] Dr. Zuly Aparicio Bilirubin [Mass/Vol] 0.4 mg/dL Normal 0.2-1.0 [facility] Comment on above: Performed By: #### T SH #### [facility] [address] [place] [address] Dr. Zuly Aparicio Calcium [Mass/Vol] 8.7 mg/dL Normal 8.5-10.1 [facility] Comment on above: Performed By: #### T SH #### [facility] [address] [place] [address] Dr. Zuly Aparicio Chloride [Moles/Vol] 105 mmol/L Normal 98-107 [facility] Comment on above: Performed By: #### T SH #### [facility] [address] [place] [address] Dr. Zuly Aparicio CO2 [Moles/Vol] 26.3 mmol/L Normal 21.0-32.0 [facility] Comment on above: Performed By: #### T SH #### [facility] [address] [place] [address] Dr. Zuly Aparicio Creatinine [Mass/Vol] 1.06 mg/dL Critically high 0.55-1.02 [facility] Comment on above: Performed By: #### T SH #### [facility] [address] [place] [address] [address] Zuly Aparicio EGFR-AF SINGAPOREAN >60 Normal >=60 [facility] Comment on above: Performed By: #### T SH #### [facility] [address] [address] [address] Zuly Aparicio EGFR-NON AF SINGAPOREAN =60 Normal >=60 [facility] Comment on above: Performed By: #### T SH #### [facility] [address] [address] [address] Zuly Aparicio Globulin (S) [Mass/Vol] 3.6 g/dL Normal [facility] Comment on above: Performed By: #### T SH #### [facility] [address] [place] [address] Dr. Zuly Aparicio Glucose [Mass/Vol] 99 mg/dL Normal 74-106 [facility] Comment on above: Performed By: #### T SH #### [facility] [address] [address] [address] Zuly Aparicio Potassium [Moles/Vol] 3.7 mmol/L Normal 3.5-5.1 [facility] Comment on above: Performed By: #### T SH #### [facility] [address] [place] [address] Dr. Zuly Aparicio Protein [Mass/Vol] 7.7 g/dL Normal 6.4-8.2 [facility] Comment on above: Performed By: #### T SH #### [facility] [address] [place] [address] Dr. Zuly Aparicio Sodium [Moles/Vol] 139 mmol/L Normal 136-145 [facility] Comment on above: Performed By: #### T SH #### [facility] [address] [place] [address] Dr. Zuly Aparicio Urea nitrogen [Mass/Vol] 17.0 mg/dL Normal 7.0-18.0 [facility] Comment on above: Performed By: #### T SH #### [facility] [address] [place] [address] Dr. Zuly Aparicio Urea nitrogen/Creatinine [Mass ratio] 16.0 mg/mg Normal [facility] Comment on above: Performed By: #### T SH #### [facility] [address] [place] [address] Dr. Zuly Aparicio TSHon 12-20-2021 TSH 3.279 uIU/mL Normal 0.358-3.740 [facility] Comment on above: Performed By: #### T SH #### [facility] [address] [place] [address] Dr. Zuly Aparicio URINE MICROSCOPIC ONLYon BACTERIA SMALL Abnormal NONE SEEN [facility] Comment on above: Performed By: #### Roshan HOOPER UMICRO #### [facility] [address] [place] [address] Dr. Zuly Aparicio Bacteria identified Cx Nom (U) INDICATED Normal [facility] Comment on above: Performed By: #### Roshan HOOPER UMICRO #### [facility] [address] [place] [address] Dr. Zuly Aparicio CAST NONE SEEN Normal NONE SEEN [facility] Comment on above: Performed By: #### Roshan HOOPER UMICRO #### [facility] [address] [place] [address] Dr. Zuly Aparicio Crystals LM Nom (Urine sed) NONE SEEN Normal NONE SEEN [facility] Comment on above: Performed By: #### Roshan HOOPER UMICRO #### [facility] [address] [place] [address] Dr. Zuly Aparicio Epithelial cells LM Ql (Urine sed) MANY Abnormal NONE SEEN /RARE [facility] Comment on above: Performed By: #### Roshan HOOPER UMICRO #### [facility] [address] [place] [address] Dr. Zuly Aparicio MUCOUS NONE SEEN Normal NONE SEEN [facility] Comment on above: Performed By: #### Roshan HOOPER UMICRO #### [facility] [address] [place] [address] Dr. Zuly Aparicio RBC 0-2 Normal 0-2 [facility] Comment on above: Performed By: #### JEFERSON ASHER #### [facility] [address], [place] [address] Dr. Zuly Aparicio WBC 2-5 Abnormal NONE SEEN [facility] Comment on above: Performed By: #### JEFERSON ASHER #### [facility] [address], [place] [address] Dr. Zuly Aparicio XR CHEST 1 Von [...] LUDY GARCIA Date: 2021-12-20 21:21 Normal [facility] Coding Summary.on 12-13-2021 Coding Summary. CD:[id number] G h0bWw+PGhlYWQ+ME0FQQL qD49fbLQvnJ6PT3hQUD4S FFYWVAXCIV7YZZ6srCM2J QxhH4GckjMb ZscuwKEkNF09RRl8ULL3u GxxIKrroG3gbLAgM4j2Qe AeEG53vV36FNgpIWFlGoQ 3LjZpbjsgbWFy X3hqWlRgdIRfXcf+PHRhY mxlIHdpZHRoPScxMDAlJy CnoCnbGW0vIw7gITMtZFC vbGxhcHNlOiBj r2hmZJJeLNxsUB8blVqeE 9VhnNG6LVEkr1i7Ix06tA I+XITzRWL9qDvvBEkxh89 4NdWyd1opNTQ8 zOTeMYcaAFB2C57fl9F5V SAoQPOhOVH9aFD3mL3nrC lnjrfcZ1NjpZVvFqT7CAI 0lLVszD6vmDis qezsfG5nRqr+N26IDB2QX TDXSB4UImh5L6VhTbejbE I+WP50NXZyON88mDPvsOP tn9jynJp3PnDt TSNxAFZ9rKifWKcal1KvJ KBqW72xsTOye1F9RXJbyN ymjDOdBpLngAP7lX8tZWt zfjknm8mklhwn Hhpls7oagg14pZ25Y24bL BdzUZWsQVH7MUGbWOXkeN zabz6gyP8rYh3+VVmjc2j jy6viaTo0QwDe DPBtfiJogVnkTUK1h0GvR r70L0JmjEbfn2FkSli0bh 89dRPzx4R2pJA0VVelXJH baC5rXKazDcU4 PFKlBhVleX37uMTrVBvtX b6llMdkqPasWI2qZVZkfk raDOMbgE8lPSArrRGutJr ePS5gGZLtljwo f982FtGqMHJ4QOEomIBoK 9UzkF6nMsXxJJCfWETuI6 XwuHMxIXxnQ656BJteNzK 6PTPgedReF4Ov PWOddPzlHeQ5b3E3Li7Kz 6IjuekwVSL0SVrvWIQ2Mq IsHrGpUoC5L8JqEdw6IVO mxCuoDY1xH1Zd KAGvktyxwbgokSJ9EAVrY EAfsQ20aHSnEGcfAc7ns1 O4s697GCYtFHZnsZ13Oa2 udDogMTBwdCBU xM4wvbbbt2zudlawEjAdW LMaWSo6FLk2XPXdoWwgHi HoUZK7XpY4CJB1iHTnsL6 lhGnzbirtjA8q Oyc+B10xoI1xERM8GQT9b bfiEBEzdpQpMD72QL52E6 RyPjwvdGFibGU+PGRpdiB bzBeyUG6uGvYd u8tgr2YiOKblQ6LtUWWvK GaeYxg1MWWuMBS6xLW8yE 0cQUBsENnlq3Y1rED0N7D ssnWbbt4pq9yk UZSxVJgyA12gzPGqu2F3S EArrON2TIJexSdqTvSbqF 93Oyc+RATcyJoyf0IvEfv hv6gsr1srrGa0 KrMyERDmidDpuSyyXVH5r 1LqFx05H79ePDmoUXKaZL KoNQRjOSWfaUtglz3xwO4 wIi8+PGNvbCB3 gST6uM4dSPSnLvX9UYvgV 017EjEtzMQfVjoxa9snk7 ivjWi6JkQeWALqtjEkzZl yWUZ3j0PpAj60 S59dOPvzCFCgNZNoFLUbC APyuPqpds9dvR3oWk5+PC 7um6zcox90pH45mZG+PHR gONC1xFjuHBtl EGDdqF3kYMliDdP6ZAFkG xBhpV30lUPzNEaxHv2yhA mprEgwMO5qMMHikgnqw93 6CcFjc8qoXKUc fBGoFCjoJSG1F21hw5P1B FUoKVZrNGB0xGT5cP7doC lnbjogbGVmdDsgdmVydGl aOMvxKEgsD813 IHRvcDsnPlBhdGllbnQgT oGsMTa3P9ReJnh4BIKzlZ utKC5qaZVtTTvwGg4nnMd qoNbiAW5kJJFj zqcwr325UbGjc0ntHVUoo UTdXMzrZMY4G41xi8K1PF WfCQWhTKW4pFT2qR7qcRs nbjogbGVmdDsg gnUrrQhvQYrwPJcdN657G HRvcDsnPkJpcnRoIERhdG T1YX17KL63sKBut3E1pSO 6T9UsOTCxpuqy poskeXD4JJJtVAKsdN43D n6irWmiZw4jOFBiELX1QN TtmAOxZ3ZqaN4sJuBhHOS lDTTxK4VcuSJh FDpbA282OOueUdI8FSCbr dEaQ0VjIBByvWqtPcW0g0 U8Qf3WD2N6PZ78OO25sFM je9N6rKN2G4Xb ENPqeynnihlvkRX5TCXoH EMwtB86Iu2xuWxvFp9kEL SzPBM6CCYqlBQwC0JqqP9 yOiAjMDAwMDAw Z1EzfYRbNHjlK131DYgkM jH9SZVnbhTsV6DrGYCukG qiViX3d2P3Tp9NNTj0SN5 9BL88mYFeu0N8 pAD0Z4DjPRBycmldphwel YX9TFEnWRNjwD43Ad5tiO wqMu4lHEEpUIK1STDqnKY oM4NkeV6vXfCn EJYsVTHvL3WeoCOzIAggS 317NTeaFvD9DMOmujEzV4 IiTISmtAryGoU2e9F7Ah2 WWPLoTV97HNO3 jKL2KI43XF67I2TaRyayn GFibGU+PHRhYmxlIHdpZH RoPScxMDAlJyBzdHlsZT0 rYb1iBGDxIPTe nUuinUTxIuYpq9agFYSdU SjhSR6hiZxnI6AehUI2RQ Rzg0v0Dm54B24oN9UsgST +CFYibCC8cLH5 kY0lIqWpKiA9HRotO283Z tNmiVPyJdqib8dqa6kadB d0YsR4IPRdosQsaSnsGPG 2g4GqJy86M84r IHdpZHRoPSIxNSUiIHZhb Sdpcq9ggH4pYp1+PGNvbC E9jIN3vA6oSqInZvY5OUj wU448IsTcdSGu Jtprc3oer9nvuNl9CuGbG FRuolJciFylOMA6s3BfFb 05F6PcuBjds6QaNke1eh4 9tNEzm3O0wLH1 A5HgMYVvviyksIAbvMhxF E5iYDNxbnveRVSwaK5tJS DeZ2w4IdWuMlY2HRhaY8Z icxX7KLMjuGKa IOjhUFF5J70fp1X7RTAfH INyWQS9xMB5xA8obXhowo ogbGVmdDsgdmVydGljYWw kLZegN957JHPt tIjfAHLqqA2hKKYmwROwq HtyZM2pHHSpzttyUhzPEe RTRVksIENIRUxTRVkgUjw vdGQ+PHRkIHN0 kErcBYizDTZonJ2vHDQjI 3d4ZoZuDyJ1BBkpP1SaXH AnceslVp21yH0kQwGqYeG 3AHqhE5BqpaS4 WYVcqRIbGVozKWY9Y90cm 9U2NDIvBOOeTRJ4pZH4lB 1hbGlnbjogbGVmdDsgdmV ydGljYWwtYWxp E441UQYfaMpoQhSzBxN9F nN7AII5T3XvHra2IMZbyK tsKW8bhGKoKFvwQl6zoKw hkCwqJZ9dDKAf mauwCGCzkT8hGSEdkKQof BfdHS9fWVXhqdmdd281Ro EhIZL1ZHVvrHKnZ8MyoN0 yOiAjMDAwMDAw J9XtoJJhLZqxO795HPdbQ gE2TEEylcRxR6DrKQDqoP puDaT6m9N1Ur5iUgOQBCL yczwvdGQ+PHRk PVV3iXimFValUJQsjJ1sY CMtG4m9NgOjXjR1HTvbR2 IrMIBlplrgIw04nI4pClB bPzS7JJkkE5Ck cnV1SCTqdSAgOGuiUHE3K 78tn3O2OLMsTYHqDIR7vI Q4cH9ovDwqejhrdPYbqXo gdmVydGljYWwt LDswQ552WPYhpUlqBkJcv WFsZTwvdGQ+NMIyFXJ4mU gyHUpvYKBhiP5nMXZxJ4j 8BtNsCnH2MAoa U0RcJHEqoukhLl62cZ2kW mMsMaB4ONnqR9IaogU6NI AoiHBaOXgvDRO5M70yo3G 1XQKpUBOjMYQ0 wEH9oU0lqLxfomluqKOwm DsgdmVydGljYWwtYWxpZ2 67YOQetWvxRwDnWSIsUN6 jeTwvdGQ+PC90 kk48S6EoDjivEsu9AHJtS IM3lHR4cU5pAIIrGRart3 Y1jAG6G2GdjgFguv7ke2b uHZNxHTlzD10m iUXmv3J7WKNzeRL1SWEhk UwzYoDbyJ90Byg+PGNvbG uzp9NjTrfzg0tuc3bqrPe 9IjMwJSIgdmFs oDyrYZQ2e7UoLx46P59yV HdpZHRoPSIzMCUiIHZhbG jnhb5kcL7sTw7+PGNvbCB 6hMZ2wH9mTaYd LhM6MSmfD025PsWdeSGtG okdt1wlc4zbtGg5BzLeLH EghoYbmFiiNAE3h8JuAx4 9J0IwoSgwb5Kx Vvv1ty54oFNul7N5tWX5N 3BhZGRpbmctbGVmdDogMC 1zOJPzlkdrOOOpsI4sHOX mI7b0LyVjDpF6 AHtfZ7FssrT2VOPbdOYvD DLiyKRDcT0apvnjp4osor oiOwCkMNKlVDy7YBq8CLO saWduOiBsZWZ0 DoX2XNC5qNXkzJ1mfQcig lmgdM3uBgu+JMh1i0cjmU YeUV2okLV5KL80RI16aDY jg9K8jGE8A0Aq PYXdzrrzprkbzWA7WMJxJ QSieH44Ew2bsPmkHx0uNH VgERZ7PMTjvCPaG1AmyV9 yOiAjMDAwMDAw W7XlfDIkXDvvR573VIubU rG7WFYctzIeM6VuKHCkmB ezTbX5m5T1Qx2VVC84GO1 2EO53jODxn2L1 gZS8S4YnYTCnouepvcrgg UX8BUZnLIZhtZ01Kq9ocG nxSs5aCIRmAWK9XBIeiHE tJ8AzbC7mWpLy HYXkUDIxC6UunYDsXLdfF 924RYwzJzM9TMWkuuEoO8 VzGLSouDkvTwL4n7Q1Ei9 ACg13NC37KW33 dTFbw7M2hRV2F0BmDAPvm tunrrsetIM3YMNfJLAxrU 32Ju3gkOayTk7xKJJvELE 7ANTqsCQiG7Rh sI4sFqLuXEVxADZoS1Alg URaBYhjC267JSkuLoQ1ON ZzbvFoS9PgVRWueZpsCzU 4g9Q1Tk5MCZgb smo1P7MtQzijuNK+PC90Y EZpME81iZKqsKRfu2mtrV t0RkKaLTFaFRE8bSquLLk fc9BrBIAyV92k bGFw (more content not included)... Normal [facility] Path. Reviewon 12-11-2021 Path Review Microcytic and hypochromic anemia. Clinical correlation and iron studies are recommended to determine etiology as clinically indicated. Invalid Interpretation Code [facility] Comment on above: Order Comment: Order Added by Discern Expert. Performed By: #### 2 [id number], [id number], [id number], 4344999, 19786778, 36743481, 0123917 #### [facility] [address] [place] [address] Auto Diffon 12-10-2021 Basophils/100 WBC (Bld) 0.2 % Normal 0.0-2.0 [facility] Comment on above: Order Comment: Order Added by Discern Expert. Performed By: #### 2 [id number], [id number], 47446898, 7362475, 28615231, 64738917, 1306318 #### [facility] [address] [place] [address] Basophils/Leukocytes Auto (Bld) [Pure # fraction] 0.0 E9/L Normal 0.0-0.2 [facility] Comment on above: Order Comment: Order Added by Discern Expert. Performed By: #### 2 827119, [id number], 83229400, 2403281, 86255256, 34563927, 4122466 #### [facility] [address] [place] [address] Eosinophils/100 WBC (Bld) 1.3 % Normal 0.0-8.0 [facility] Comment on above: Order Comment: Order Added by Discern Expert. Performed By: #### 2 070781, 42294656, 71082484, 3604227, 60715357, 48416877, 4864727 #### [facility] [address] [place] [address] Eosinophils/Leukocyte s Auto (Bld) [Pure # fraction] 0.1 E9/L Normal 0.0-0.5 [facility] Comment on above: Order Comment: Order Added by Discern Expert. Performed By: #### 2 140305, 12560416, 12630245, 9945243, 29966706, 98050630, 2103446 #### [facility] [address] [place] [address] Lymphocytes/100 WBC (Bld) 30.3 % Normal 14.0-50.0 [facility] Comment on above: Order Comment: Order Added by Discern Expert. Performed By: #### 2 335175, 23287813, 64449736, 9848246, 78922708, 52171273, 0901033 #### [facility] [address] [place] [address] Lymphocytes/Leukocyte s Auto (Bld) [Pure # fraction] 2.1 E9/L Normal 1.0-4.0 [facility] Comment on above: Order Comment: Order Added by Discern Expert. Performed By: #### 2 433247, 35275292, 63003854, 7211165, 43538424, 35659537, 2287827 #### [facility] [address] [place] [address] Monocytes/100 WBC (Bld) 6.2 % Normal 4.0-14.0 [facility] Comment on above: Order Comment: Order Added by Discern Expert. Performed By: #### 2 978756, 44411449, 14614852, 5630052, 20447173, 73743860, 9997331 #### [facility] [address] [place] [address] Monocytes/Leukocytes Auto (Bld) [Pure # fraction] 0.4 E9/L Normal 0.2-1.0 [facility] Comment on above: Order Comment: Order Added by Discern Expert. Performed By: #### 2 320372, 93015361, 90320576, 1673542, 96893445, 82169264, 4161208 #### [facility] [address] [place] [address] Neutrophils/100 WBC (Bld) 62.0 % Normal 36.0-75.0 [facility] Comment on above: Order Comment: Order Added by Discern Expert. Performed By: #### 2 299449, 80473541, 37187675, 9224002, 00587936, 29067989, 9723993 #### [facility] [address] [place] [address] Neutrophils/Leukocyte s Auto (Bld) [Pure # fraction] 4.3 E9/L Normal 2.0-7.5 [facility] Comment on above: Order Comment: Order Added by Discern Expert. Performed By: #### 2 900380, 13397374, 71836803, 1614411, 90993839, 42029162, 9348501 #### [facility] [address] [place] [address] BMPon 12-10-2021 Creatinine [Mass/Vol] 1.0 mg/dL Normal 0.5-1.3 [facility] Comment on above: Performed By: #### 2 857108, 48654462, 93026580, 7874451, 38976335, 09129725, 8028000 #### [facility] [address] [place] [address] Urea nitrogen [Mass/Vol] 17 mg/dL Normal 5-21 [facility] Comment on above: Performed By: #### 2 722418, 32676426, 27817111, 8765087, 15691730, 69805663, 7557580 #### [facility] [address] [place] [address] Urea nitrogen/Creatinine [Mass ratio] 17 No Units Normal 10-20 [facility] Comment on above: Performed By: #### 2 158219, 48075974, 08963828, 0630884, 91942501, 16691857, 7556333 #### [facility] [address] [place] [address] Anion gap [Moles/Vol] 13 mmol/L Normal 6-16 [facility] Comment on above: Performed By: #### 2 298189, [id number], 63492422, 6304555, 49626607, 50530042, 9246536 #### [facility] [address] [place] [address] Calcium [Mass/Vol] 9.2 mg/dL Normal 8.9-11.1 [facility] Comment on above: Performed By: #### 2 881266, [id number], 17179129, 8059977, 34842037, 36221683, 9822238 #### [facility] [address] [place] [address] Chloride [Moles/Vol] 106 mmol/L Normal 101-111 [facility] Comment on above: Performed By: #### 2 444998, 47272747, 02442598, 9022397, 52969634, 24862740, 9526240 #### [facility] [address] [place] [address] CO2 [Moles/Vol] 22 mmol/L Normal 21-31 [facility] Comment on above: Performed By: #### 2 767731, 05393062, 89581096, 8687354, 11572681, 21735060, 7687120 #### [facility] [address] [place] [address] Glucose [Mass/Vol] 96 mg/dL Normal 55-199 [facility] Comment on above: Result Comment: If t his glucose result represents a fasting glucose, interpretation should refer to the following reference range: 55-99 mg/dL Performed By: #### 2 794140, 64176806, 09730889, 9121757, 35727283, 25430762, 8005458 #### [facility] [address] [place] [address] Potassium [Moles/Vol] 4.2 mmol/L Normal 3.5-5.3 [facility] Comment on above: Performed By: #### 2 705779, 17675154, 61012560, 1761455, 59207261, 36274619, 6604291 #### [facility] [address] [place] [address] Sodium [Moles/Vol] 137 mmol/L Normal 135-145 [facility] Comment on above: Performed By: #### 2 488610, 99150325, 48851164, 2055350, 66713083, 57675809, 5579170 #### [facility] [address] [place] [address] CBC w/ Auto Diffon 2 Erythrocyte distribution width (RBC) [Ratio] 15.4 % High 10.9-14.2 [facility] Comment on above: Performed By: #### 2 488393, 90050679, 67470218, 2617340, 42535713, 38866601, 8394839 #### [facility] [address] [place] [address] Hematocrit (Bld) [Volume fraction] 34.9 % Normal 34.0-46.0 [facility] Comment on above: Performed By: #### 2 551131, 81603611, 95821092, 6153581, 71551467, 73410763, 8463809 #### [facility] [address] [place] [address] Hemoglobin (Bld) [Mass/Vol] 11.0 g/dL Low 12.0-16.0 [facility] Comment on above: Performed By: #### 2 048616, 43231595, 21352697, 5034557, 31252950, 61668742, 0124341 #### [facility] [address] [place] [address] MCH (RBC) [Entitic mass] 17.7 pg Low 27.0-34.0 [facility] Comment on above: Performed By: #### 2 756117, 88565543, 70142150, 2750280, 81542183, 96883256, 0144166 #### [facility] [address] [id number] MCHC (RBC) [Mass/Vol] 31.6 g/dL Normal 31.4-36.0 [facility] Comment on above: Performed By: #### 2 636091, 08659617, 24560309, 3449145, 10168361, 76713943, 2638178 #### [facility] [address] [place] [address] MCV (RBC) [Entitic vol] 56.1 fL Low 80.0-100.0 [facility] Comment on above: Performed By: #### 2 178404, [id number], 82014401, 3449512, 22776425, 42210482, 8656323 #### [facility] [address] [place] [address] Platelet mean volume (Bld) [Entitic vol] 8.9 fL Normal 6.4-10.8 [facility] Comment on above: Performed By: #### 2 489709, 72851855, 70030480, 0553019, 13405023, 01985852, 5897713 #### [facility] [address] [place] [address] Platelets (Bld) [#/Vol] 281.0 E9/L Normal 150.0-500.0 [facility] Comment on above: Performed By: #### 2 787385, 06257622, 14199277, 5534369, 63712145, 77246824, 3059000 #### [facility] [address] [place] [address] RBC (Bld) [#/Vol] 6.2 E12/L High 4.3-5.9 [facility] Comment on above: Performed By: #### 2 398409, 59932495, 01802252, 0152814, 77432635, 40790496, 5132850 #### [facility] [address] [place] [address] WBC corrected for nucl RBC Auto (Bld) [#/Vol] 6.9 E9/L Normal 4.0-11.0 [facility] Comment on above: Performed By: #### 2 542912, 00501182, 09060155, 7542646, 20098474, 16160310, 6256708 #### [facility] [address] [place] [address] CHEMISTRYOrdered By: SYSTEM SYSTEM on 12-10-2021 Anion [...] rate/Area] mL/min/1.73 m2 Normal >=59mL/min/1 .73 m2 [facility] Chem S GFR/1.73 sq M.predicted among non-blacks MDRD (S/P/Bld) [Vol rate/Area] mL/min/1.73 m2 Normal >=59mL/min/1 .73 m2 [facility] Chem S Glucose [Mass/Vol] 96 mg/dL Normal 55 - 199 mg/dL [facility] Remisol Potassium [Moles/Vol] 4.2 mmol/L Normal 3.5 - 5.3 mmol/L [facility] Remisol Sodium [Moles/Vol] 137 mmol/L Normal 135 - 145 mmol/L [facility] Remisol Troponin I.cardiac [Mass/Vol] pg/mL Low 10.10 - 27.10 pg/mL [facility] Remisol Urea nitrogen [Mass/Vol] 17 mg/dL Normal 5 - 21 mg/dL [facility] Remisol Urea nitrogen/Creatinine [Mass ratio] 17 mg/mg Normal 10 - 20 [facility] Remisol Consent for Treatmenton 11-24 Consent for Treatment [id number] .[id number]:127 Normal [facility] Discharge Instructionson Discharge Instructions [id number] .[id number]:127 Normal [facility] ED Clinical Summaryon 2021 ED Clinical Summary [address] [address] ED Clinical Summary Person Information Name: TORIE JOHNSTON [facility] Age: 31 Years : 1990 Sex: Female Language: Uzbek PCP: YAMILE GARCIA CNP Marital Status: Visit [...] 03:49:35 12/10/2021 03:49:35 12/10/2021 03:49:35 ADDRESS: [address] [address] [id number] [facility] DOC NOTES: MEDICAL INFORMATION: Prescriptions Given: [...] With: Address: When: YAMILE GARCIA [address] [facility], [place], [place] [phone] Business (1) In 3 days 12/13/2021 Comments: Return to the emergency room if your vertigo recurs or any new symptoms DIAGNOSIS: 1:Vertigo; 2:Leg pain Normal [facility] ED Note-Nursingon 12-10-2021 ED Note-Nursing pt given d/c instructions and educated on importance of follow up. pt educated on new medications. pt verbalized understanding of instructions and readiness for d/c. pt walked self ambulatory to waiting room in stable condition Normal [facility] ED Note-Physicianon 12-11-19 ED Note-Physician Basic [...] meclizine 12.5 mg Tab, 25 mg, Oral CG0369 [F], 1000 mL, IV Phenergan 25 mg/mL Injection, 12.5 mg, IV Push Disposition Plan Patient Discharge Condition Stable, improved Discharge Disposition Discharged home Discharge Prescription List Prescriptions meclizine 25 mg Tab, 25 mg= 1 tab(s), Oral, TID Zofran ODT 4 mg Tab-Dis, 4 mg= 1 tab(s), Oral, q6hr, PRN Follow-up With When Contact Information YAMILE GARCIA In 3 days 12/13/2021 EDT [address] [place] [address] [phone] Business (1) Additional Instructions: Return to the [...] 00:31:00) Hct: (more content not included)... Normal [facility] Comment on above: Result Comment: Elec tronically Signed By: Miguel Kamara M.D.\.racquel\Date and Time Signed: 12/10/21 04:59 EDT ED [...] you feel dizzy. General instructions ? Take uujx-yxp-fooqsgq and prescription medicines only as told by [...] 02/20/2006 Document Revised: 04/06/2019 Document Reviewed: 04/06/2019 DFMSim Patient Education ? 2019 [employer]. Normal [facility] ED Patient Summaryon 022 ED Patient Summary [place] [address] Patient Discharge Instructions Person Information Name: TORIE JOHNSTON Age: 31 Years Arrival Date: 12/09/2021 22:22:45 Discharge Diagnosis: 1:Vertigo; 2:Leg pain Primary Care Physician: YAMILE GARCIA CNP Provider Information Primary Provider: Miguel Kamara M.D. Advanced Examiner Rating Clerk:None The exam and treatment you received in the Emergency Department were for an urgent problem and are not intended as complete care. It is important that you follow up with a doctor, nurse practitioner, or physician?s syrup mixer assistant for ongoing care. If your symptoms become [...] Address: When: YAMILE GARCIA [address] [facility] [place], [place] [phone] Business (1) In 3 days 12/13/2021 Comments: [...] opioids can be used to help relieve ewcjdvhz-he-zxxvmg pain and are often prescribed following a [...] be struggling with addiction, tell your health client care specialist and ask f (more content not included)... Normal [facility] HEMATOLOGYOrdered By: Serg Goodson on 12-10-2021 [...] Present (12/10/21 12:31 AM) Normal [facility] MCH (RBC) [Entitic mass] 17.7 pg Low 27.0 - 34.0 pg [facility] MCHC (RBC) [Mass/Vol] 31.6 g/dL Normal 31.4 - 36.0 gm/dL [facility] MCV (RBC) [Entitic vol] 56.1 fL Low 80.0 - 100.0 fL [facility] Morphology Rey (Bld) [Interp] See Morphology (12/10/21 12:31 AM) Normal [facility] Platelet mean volume (Bld) [Entitic vol] 8.9 fL Normal 6.4 - 10.8 fL [facility] Platelets (Bld) [#/Vol] 281.0 E9/L Normal 150.0 - 500.0 E9/L [facility] Poikilocytosis Auto Ql (Bld) Present (12/10/21 12:31 AM) Normal [facility] HemeManSS Polychromasia LM Ql (Bld) Present (12/10/21 12:31 AM) Normal [facility] RBC (Bld) [#/Vol] 6.2 E12/L High 4.3 - 5.9 E12/L [facility] Teardrop Cell Present (12/10/21 12:31 AM) Normal [facility] HemeManSS WBC corrected for nucl RBC Auto (Bld) [#/Vol] 6.9 E9/L Normal 4.0 - 11.0 E9/L [facility] HEMATOLOGYOrdered By: SYSTEM SYSTEM on 12-10-2021 Basophils/100 WBC (Bld) 0.2 % Normal 0.0 - 2.0 % [facility] Basophils/Leukocytes Auto (Bld) [Pure # fraction] [...] 4.3 E9/L Normal 2.0 - 7.5 E9/L [facility] HemeAutoSS Morphon 12-10-2021 Anisocytosis Ql (Bld) Present Normal [facility] Comment on above: Order Comment: Order Added by Discern Expert. Performed By: #### 2 110877, 76380304, 48074852, 6547341, 05625063, 48794394, 3054357 #### [facility] [address] [place] [address] Elliptocytes LM Ql (Bld) Present Normal [facility] Comment on above: Order Comment: Order Added by Discern Expert. Performed By: #### 2 954579, 20362300, 76102255, 2641338, 20659571, 20434919, 1020828 #### [facility] [address] [place] [address] Hypochromia Auto Ql (Bld) Present Normal [facility] Comment on above: Order Comment: Order Added by Discern Expert. Performed By: #### 2 317610, 50484868, 86084694, 8085212, 84992762, 77447663, 9281486 #### [facility] [address] [place] [address] Morphology Rey (Bld) [Interp] See Morphology Normal [facility] Comment on above: Order Comment: Order Added by Discern Expert. Performed By: #### 2 050148, 28957092, 97502352, 8989622, 31438333, 54327126, 0008560 #### [facility] [address] [place] [address] Poikilocytosis Auto Ql (Bld) Present Normal [facility] Comment on above: Order Comment: Order Added by Discern Expert. Performed By: #### 2 638780, 03654841, 66068938, 6435841, 75060486, 02600364, 9894305 #### [facility] [address] [place] [address] Polychromasia LM Ql (Bld) Present Normal [facility] Comment on above: Order Comment: Order Added by Discern Expert. Performed By: #### 2 901546, 74635507, 84784173, 0400911, 70712942, 38883350, 5340961 #### [facility] [address] [place] [address] Teardrop Cell Present Normal [facility] Comment on above: Order Comment: Order Added by Discern Expert. Performed By: #### 2 686545, 59290809, 26896237, 2002055, 27168933, 39411498, 3780809 #### [facility] [address] [place] [address] SEROLOGYOrdered By: Serg hope on 12-10-2021 HCG.beta subunit (U) [Moles/Vol] Negative Normal [facility] Man Sero Troponin 0 Hr.on 12-10-2021 Troponin I.cardiac [Mass/Vol] ng/mL Low 10.10-27.10 [facility] Comment on above: Result Comment: The 95% CI (Confidence Interval) PPV (Positive Predictive Value) for myocardial infarction in females is 38 pg/mL, in males 51 pg/mL. The results should be used in conjunction with clinical conditions of myocardial infarction. (Access High Sensitivity Troponin I Instructions For Use, Mili Jeniffer, December 2017) Performed By: #### 2 955869, 77184738, 28968988, 9272043, 85465687, 32159019, 3312969 #### [facility] [address] [place] [address] U BetaHcg Qualon 12-10-2021 HCG.beta subunit (U) [Moles/Vol] Negative Normal [facility] Comment on above: Performed By: #### 2 6795505, 23795389 ####[facility] [address] [place] [address] UA With Cult Reflexon 2021 Bilirubin Ql (U) Negative Normal Negative [facility] Comment on above: Performed By: #### 2 7479183, 00484906 #### [facility] [address] [place] [address] Clarity (U) CLEAR Normal Clear [facility] Comment on above: Performed By: #### 2 4854375, 47925250 #### [facility] [address] [place] [address] Color (U) YELLOW Normal Yellow [facility] Comment on above: Performed By: #### 2 9938991, 83339321 #### [facility] [address] [place] [address] Epithelial cells.squamous LM.HPF (Urine sed) [#/Area] 0-2 Normal 0-2 [facility] Comment on above: Performed By: #### 2 5456316, 76242490 #### [facility] [address] [place] [address] Glucose Test strip (U) [Mass/Vol] Negative Normal Negative [facility] Comment on above: Performed By: #### 2 7979449, 66466992 #### [facility] [address] [place] [address] Hemoglobin Ql (U) Negative Normal Negative [facility] Comment on above: Performed By: #### 2 5439495, 95859902 #### [facility] [address] [place] [address] Ketones (U) [Mass/Vol] Negative Normal Negative [facility] Comment on above: Performed By: #### 2 5654559, 95304031 #### [facility] [address] [place] [address] [place].plasma/Lithiu m.RBC (Bld) [Mass ratio] 0-3 Normal 0-3 [facility] Comment on above: Performed By: #### 2 3398444, 80197755 #### [facility] [address] [place] [address] Nitrite Ql (U) Negative Normal Negative [facility] Comment on above: Performed By: #### 2 2660819, 33965144 #### [facility] [address] [place] [address] pH (U) 6.0 [pH] Invalid Interpretation Code 5.0-9.0 [facility] Comment on above: Performed By: #### 2 7185914, 54271366 #### [facility] [address] [place] [address] Protein (U) [Mass/Vol] Negative Normal Negative [facility] Comment on above: Performed By: #### 2 2217168, 57617123 #### [facility] [address] [place] [address] Specific gravity (U) [Rel density] 1.025 Invalid Interpretation Code 1.005-1.030 [facility] Comment on above: Performed By: #### 2 3262684, 62339012 #### [facility] [address] [place] [address] Type of Urine collection method Clean Catch Normal [facility] Comment on above: Performed By: #### 2 9372340, 19223915 #### [facility] [address] [place] [address] Urobilinogen Qn (U) 0.2 {Isamar'U}/dL Normal 0.0-1.0 [facility] Comment on above: Performed By: #### 2 6784556, 63136706 #### [facility] [address] [place] [address] WBC Auto Ql (U) Negative Normal Negative [facility] Comment on above: Performed By: #### 2 9887952, 94814680 #### [facility] [address] [place] [address] WBC LM.HPF (Urine sed) [#/Area] 0-5 Normal 0-5 [facility] Comment on above: Performed By: #### 2 4145427, 58389881 #### [facility] [address] [place] [address] URINALYSISOrdered By: Serg Goodson on 12-10-2021 Bilirubin [...] AM) Normal Negative [facility] UA Auto SS [place].plasma/Lithiu m.RBC (Bld) [Mass ratio] 0-3 /HPF Normal [...] [facility] UA Auto SS Urobilinogen Qn (U) 0.9159457 {Isamar'U}/dL Normal 0.0 - 1.0 EU/dL [facility] [...] M.D. Transcribed by: FABI Technologist: MARKO Ornelas [facility] eGFRon 12-10-2021 GFR/1.73 sq M.predicted among blacks MDRD (S/P/Bld) [Vol rate/Area] mL/min/{1.73_m2} Normal >=59 [facility] Comment on above: Order Comment: Order added by Discern Expert. Result Comment: eGFR is race adjusted. AA=. Performed By: #### 2 420131, 45492706, 68732916, 6799239, 22348528, 18494217, 4497820 #### [facility] [address] [place] [address] GFR/1.73 sq M.predicted among non-blacks MDRD (S/P/Bld) [Vol rate/Area] mL/min/{1.73_m2} Normal >=59 [facility] Comment on above: Order Comment: Order added by Discern Expert. Result Comment: [employer] sonu kidney disease could be indicated at eGFR's of less than 60 mL/min/1.73m2. Kidney failure is indicated at less than 15 mL/min/1.73m2. Performed By: #### 2 121506, 42739535, 65414976, 3274961, 94189197, 26305319, 1640613 #### [facility] [address] [place] [address] VC CONSULT FOLLOWUPon 2021 VC CONSULT FOLLOWUP Patient: TORIE JOHNSTON Exam Date: 11/16/2021 : 1990 Gender:F Ordering : DR SADI JEWELL M.D. Admission #: [id number] Family : Order #: [id number] CLICK HERE TO VIEW EXAM RADIOLOGY REPORT [...] Wood M.D. on 11/16/2021 at 12:01 Normal [facility] VC EXT VENOUS LT LIMITEDon 0 11-16-2021 VC EXT VENOUS LT LIMITED Patient: TORIE JOHNSTON Exam Date: 11/16/2021 : 1990 Gender:F Ordering : DR SADI JEWELL M.D. Admission #: [id number] Family : Order #: [id number] CLICK HERE TO VIEW EXAM RADIOLOGY REPORT [...] Wood M.D. on 11/16/2021 at 11:58 Normal [facility] VC ENDOVENOUS ABL 1ST V LTon 11-08-2021 VC ENDOVENOUS ABL 1ST V LT Patient: TORIE JOHNSTON Exam Date: 11/08/2021 : 1990 Gender:F Ordering : DR SADI JEWELL M.D. Admission #: [id number] Family : Order #: [id number] CLICK HERE TO VIEW EXAM RADIOLOGY REPORT PROCEDURE: VEIN CENTER ENDOVENOUS ABLATION FIRST VEIN LEFT COMPARISON: None. INDICATIONS: Pain co-occurrent and due to varicose veins of bilateral legs I83.813 OPERATIVE REPORT: The risks and benefits of the procedure had been previously discussed, and were rediscussed at length. Informed written consent was obtained by ok and Ketan Haley assisted. Time out procedure [...] Jose Wood M.D. on 11/08/2021 at 08:59 [facility] VC CONSULT FOLLOWUPon 2021 VC CONSULT FOLLOWUP Patient: TORIE JOHNSTON Exam Date: 10/19/2021 : 1990 Gender:F Ordering : DR SADI JEWELL M.D. Admission #: [id number] Family : Order #: [id number] CLICK HERE TO VIEW EXAM RADIOLOGY REPORT [...] Jose Wood M.D. on 10/19/2021 at 09:37 [facility] VC EXT VENOUS RT LIMITEDon 0 10-19-2021 VC EXT VENOUS RT LIMITED Patient: TORIE JOHNSTON Exam Date: 10/19/2021 : 1990 Gender:F Ordering : DR SADI JEWELL M.D. Admission #: [id number] Family : Order #: [id number] CLICK HERE TO VIEW EXAM RADIOLOGY REPORT [...] Wood M.D. on 10/19/2021 at 09:34 Normal [facility] VC ENDOVENOUS ABL 1ST V RTon 10-16-2021 VC ENDOVENOUS ABL 1ST V RT Patient: TORIE JOHNSTON Exam Date: 10/16/2021 : 1990 Gender:F Ordering : DR SADI JEWELL M.D. Admission #: [id number] Family : Order #: [id number] CLICK HERE TO VIEW EXAM RADIOLOGY REPORT PROCEDURE: VEIN CENTER ENDOVENOUS ABLATION FIRST VEIN RIGHT GREAT SAPHENOUS VEIN COMPARISON: None. INDICATIONS: Pain co-occurrent and due to varicose veins of bilateral legs I83.813 OPERATIVE REPORT: The risks and benefits of the procedure had been previously discussed, and were rediscussed at length. Informed written consent was obtained by me and Ketan Haley assisted. Time out procedure [...] Sadi Jewell MD on 10/16/2021 at 09:30 [facility] THYROIDon 10-10-2021 US THYROID EXAMINATION: US THYROID [...] No significant change. Electronically authenticated by: JOSE Quezada: 2021-10-10 08:52 Normal [facility] Vital Signs Date Time Vital Sign Value Performing Clinician Isabelle nielsen 12-10-2021 14:00-0400 Body temperature 98.6 [degF] [facility] 12-10-2021 14:00-0400 Diastolic blood pressure 94 mm[Hg] [facility] 12-10-2021 14:00-0400 Heart rate 86 /min [facility] 12-10-2021 14:00-0400 Mean blood pressure 106 mm[Hg] [facility] 12-10-2021 14:00-0400 Respiratory rate 18 /min [facility] 12-10-2021 14:00-0400 SaO2% (BldA) [Mass fraction] 100 % [facility] 12-10-2021 14:00-0400 Systolic blood pressure 131 mm[Hg] [facility] 12-10-2021 03:38-0400 Body temperature 98.24 [degF] [facility] 12-10-2021 03:38-0400 Diastolic blood pressure 64 mm[Hg] [facility] 12-10-2021 03:38-0400 Heart rate 92 /min [facility] 12-10-2021 03:38-0400 Mean blood pressure 80 mm[Hg] [facility] 12-10-2021 03:38-0400 Respiratory rate 17 /min [facility] 12-10-2021 03:38-0400 SaO2% (BldA) [Mass fraction] 99 % [facility] 12-10-2021 03:38-0400 Systolic blood pressure 111 mm[Hg] [facility] 12-10-2021 03:00-0400 Diastolic blood pressure 85 mm[Hg] [facility] 12-10-2021 03:00-0400 Mean blood pressure 102 mm[Hg] [facility] 12-10-2021 03:00-0400 Systolic blood pressure 137 mm[Hg] [facility] 12-10-2021 00:00-0400 Heart rate 80 /min [facility] 12-09-2021 23:00-0400 gluc 90 mg/dL [facility] 12-09-2021 23:00-0400 gluc [facility] 12-09-2021 23:00-0400 Heart rate 75 /min [facility] 12-09-2021 22:46-0400 Heart rate 86 /min [facility] Encounters Encounter Date Encounter Type Care Provider Facility Start: 2023 End: 06-21-2023 ambulatory EVGENY ZHOU Facility:[facility] Start: 09-20-2022 End: 09-21-2022 ambulatory MAHAD [...] 12-09-2021 End: 12-10-2021 Emergency department patient visit [facility] Start: 11-23-2021 End: 11-24-2021 ambulatory FUEL RETROFITTING TECHNICIAN YAMILE GARCIA Facility:[facility] Start: 11-21-[address] SADI JEWELL Facilit y:[facility] Start: 11-16-2021 End: 11-17-[address] SADI JEWELL Facility:[facility] Start: 11-08-2021 End: 11-09-[address] SADI JEWELL Facility:[facility] Start: 10-19-2021 End: 10-20-[address] SADI JEWELL Facility:[facility] Start: 10-16-2021 End: 10-17-[address] SADI JEWLEL Facility:[facility] Start: 10-10-2021 End: 10-11-2021 ambulatory MAHAD ARREGUINROMA Facility:[facility] Start: 03-16-2021 Telephone encounter [facility] Start: 08-22-2020 End: 08-22-2020 Chart abstracting Jose Manuel Fishman Work Phone: Hematology/Oncology Start: 08-22-2020 End: 08-22-2020 Patient encounter procedure External Provider [facility] Start: 08-22-2020 Results Only External Provider Exter nal-NonCCF Procedures Date Procedure Procedure Detail Performing Clinician Start: 08-22-2020 EXTERNAL IMAGING [employer] D[employer] Instructor al Provider Start: 08-22-2020 EXTERNAL LAB External P rovider Plan of Treatment Date Care Activity Detail Author Start: 01-26-2020 Influenza vaccination INFLUENZA (#1) [facility] Start: 2019 HPV TESTING HPV TESTING [facility] Start: 2010 PAP TESTING PAP TESTING [facility] Start: 2008 Urine microalbumin profile DTAP,TDAP ,TD (1 - Tdap) [facility] Start: 2007 HEPATITIS C SCREENING HEPATITIS C SC REENING [facility] Start: 2007 HIV SCREENING HIV SCREENING [facility] Start: 2001 Adult depression scr eening assessment DEPRESSION SCREENING [facility] Payers Date Payer Category Payer Private Health Insurance AETNA A ETNA OPEN ACCESS [employer] [id number] 2020-Present EPO [id number] 1989 Unknown [id number] 2.16.840.1.965263.3.579.2.5 93 1989 Unknown [id number] 2.16.840.1.016273.3.579.2.5 1989 Unknown [id number] 2.16.840.1.898427.3.579.2.5 1989 Unknown [id number] 2.16.840.1.994437.3.579.2.5 1989 Unknown [id number] 2.16.840.1.652339.3.579.2.5 93 1989 Unknown [id number] 2.16.840.1.928603.3.579.2.5 1989 Unknown [id number] 2.16.840.1.734928.3.579.2.5 1989 Unknown [id number] 2.16.840.1.061117.3.579.2.5 1989 Unknown [id number] 2.16.840.1.820662.3.579.2.5 1989 Unknown [id number] 2.16.840.1.113121.3.579.2.5 1989 Unknown [id number] 2.16.840.1.726278.3.579.2.5 1989 Unknown [id number] 2.16.840.1.404675.3.579.2.5 1989 Unknown [id number] 2.16.840.1.088322.3.579.2.5 1989 Unknown [id number] 2.16.840.1.430595.3.579.2.5 1989 Unknown [id number] 2.16.840.1.440467.3.579.2.5 93 1960 Medicaid [id number] 1960 Private Health Insurance [id number] 2.16.840.1.055936.19 1959 Self-pay [id number] 1960 Self-pay 1959 Unknown [id number] 1960 Unknown [id number] Social History Date Type Detail Facility Start: 08-22-2020 Tobacco smoking stat [facility] Unknown if ever smoked [facility] Start: 1990 Sex Assigned At Not on file C [facility] Exposure to SARS-CoV -2 (event) Not sure [facility] Sex Assigned At [employer] Other Tobacco smoking status No Smokin g Status Entered [facility] Functional Status Date Assessment Result Facility 12-09-2021 Functional Status N/A [facility] Progress note 2023 Note Date & Type Note Facility 2023 Note HNO ID: [id number] Author: FRANCIS MA MD Service: ? Author Type: Physician Type: Progress Notes Filed: 2023 14:44 Note Text: [facility] [place] Department of Hematologic Oncology and Blood Disorders PATIENT NAME: [facility] NO: [id number] ATTENDING PHYSICIAN: Francis Ma MD. DATE OF [...] Abs Lymph 1.00 - 4.00 k/uL 1.42 [facility]% % 5.[address] [facility] <0.87 k/uL 0.21 [facility]% % 1.5 Abs [...] in 2018 during ). Her periods are manager primary now. She was placed on folic acid. [...] We also reviewed (more content not included)... [facility] Evaluation + Plan note 12-10-2021 Note [...] Diagnostic Tests Pending * Path. Review 12/10/21 [facility] Hospital Discharge instructions 12-10-2021 Note [...] if you feel dizzy. General instructions Take afej-mpd-dbpager and prescription medicines only as told by [...] 02/20/2006 Document Revised: 04/06/2019 Document Reviewed: 04/06/2019 DFMSim Patient Education 2020 [employer]. Follow Up Care 12/09/2021 22:26:43 With:YAMILE GARCIA Address: [address] [place] [phone] Business (1) When:12/13/2021 Comments:Return to the emergency room if your vertigo recurs or any new symptoms [facility] Clinical Note 12-10-2021 Note Date [...] any SOB. pt has hx of anxiety [facility] Evaluation note Note Date & Type Note Facility Evaluation note No Information [facility] Other History general Narrative - Reported Note Date & Type Note Facility History general Narrative - Reported Type Surgical History D & C Surgical History tubal ligation [facility] Other Hospital course Narrative Note Date & Type Note Facility Hospital course Narrative No data available for this section [facility] Progress note Note Date & Type Note Facility Progress note No data available for this section [facility] Summary Purpose Family History No [...] or prosecute any alcohol or drug abuse patient.[facility] the event this information is protected by the Federal Confidentiality of Alcohol and Drug Abuse Patient Records regulations: The Federal rules restrict any use of the information to criminally investigate or prosecute any alcohol or drug abuse patient.[facility] REASON FOR VISIT (unrecogniz ed section and content) N/S covid test Care Team (unrecognized sect ion and content) Personnel Name: YAMILE GARCIA CNP Address: [address] [place], [place] [id number] [place] INFORMATION SOURCE (unrecogn ized section and content) DATE CREATED AUTHOR 12/14/2021 [facility] DATE CREATED AUTHOR AUTHOR'S ORGANIZ ATION 10/06/2022 [facility] DATE CREATED AUTHOR AUTHOR'S ORGANIZ ATION 06/22/2023 [facility] FOR RECORDS PERTAINING TO PATIENTS WHO [...] BE BASED ON THE PRIMARY CLINICAL RECORDS. [facility] [employer] [facility]. provides no warranty or guarantee of the accuracy or completeness of information in this document.
[2023-12-02 16:02] LABS: Basophils Percent Auto 0.5 % (0.2-2.0); Eosinophils Absolute Auto 0.1 10^3/uL (0.0-0.7); Eosinophils Percent Auto 1.6 % (0.9-7.0); Hematocrit 30.4 % (36.0-48.0); Hemoglobin 9.4 g/dL (12.0-16.0); Immature Granulocytes Abs Auto 0.02 10^3/uL (0.00-0.03); Immature Granulocytes Pct Auto 0.3 % (0.0-0.5); Lymphocytes Absolute Auto 2.3 10^3/uL (1.2-3.8); Lymphocytes Percent Auto 36.5 % (20.5-60.0); Mean Corpuscular HGB Conc 30.9 g/dL (29.9-35.2); Mean Corpuscular Hemoglobin 18.4 pg (26.7-34.0); Mean Corpuscular Volume 59.6 fL (81.0-99.0); Mean Platelet Volume 9.6 fL (9.5-13.5); Monocytes Absolute Auto 0.3 10^3/uL (0.3-0.8); Monocytes Percent Auto 4.3 % (1.7-12.0); Neutrophils Absolute Auto 3.6 10^3/uL (1.4-6.5); Neutrophils Percent Auto 56.8 % (43.0-75.0); Platelet Count 336 10^3/uL (150-450); White Blood Count 6.3 10^3/uL (4.0-11.0)
[2023-12-02 16:23] LABS: Anion Gap 13.7; BUN Creatinine Ratio 11.9; Calcium 8.6 mg/dL (8.5-10.1); Carbon Dioxide 25.1 mmol/L (21.0-32.0); Chloride 106 mmol/L (98-107); Estimated GFR (African America 59 (>=60); Estimated GFR (Non-African Ame 49 (>=60); Glucose 99 mg/dL (74-106); Potassium 3.8 mmol/L (3.5-5.1); Sodium 141 mmol/L (136-145)
[2023-12-02 16:28] LABS: Percent Iron Saturation 21.5 %
[2023-12-02 17:24] LABS: Red Cell Distribution Width 16.3 % (11.0-15.0)
== END 2023-12-02 15:36 | disposition home or self-care (01) ==
LOC: LAB 15:39
PROVIDERS: Family Provider Nurse Practitioner Primary Care; PCP Nurse Practitioner; Visit Provider Internal Medicine Hematology & Oncology
DX: D64.9 Anemia, unspecified (principal); D56.9 Thalassemia, unspecified
CPT/HCPCS: 36415; 80048; 82728; 83540; 83550; 85025

== ENCOUNTER 2023-12-18 15:42 | Outpatient (OUT) | payer OTHER, SELFPAY ==
--- OUTSIDE RECORDS SUMMARY | 2023-12-18 15:49 | XMS_ITS | CCD ---
Author Organization [facility] Inform ion Partnership [facility] Care Team Providers Care Academic Support Specialist Name Role Phone Unavailable Primary Care Provider Juan Carlos Panchal Unavailable CEDRICYAMILE BRANDON Primary Care Physician FANTA, DR SADI Oliveira Consulting Unavailable AICHHOLZ, FINANCE ASSISTANT YAMILE Primary Care Unavailable WEST, DR SADI Oliveira Attending Unavailable WEST, DR SADI Oliveira Admitting Unavailable WEST, DR SADI Oliveira Consulting Unavailable AICHHOLZ, FINANCE ASSISTANT YAMILE Primary Care Unavailable WEST, DR SADI Oliveira Attending Unavailable WEST, DR SADI Oliveira Admitting Unavailable ZIEBER, DR JOSE Crowley Consulting Unavailable WEST, DR SADI Oliveira Consulting Unavailable AICHHOLZ, FINANCE ASSISTANT YAMILE Primary Care Unavailable WEST, DR SADI Oliveira Attending Unavailable WEST, DR SADI Oliveira Admitting Unavailable ZIEBER, DR JOSE Crowley Consulting Unavailable WEST, DR SADI Oliveira Consulting Unavailable AICHHOLZ, FINANCE ASSISTANT YAMILE Primary Care Unavailable WEST, DR SADI Oliveira Attending Unavailable WEST, DR SADI Oliveira Admitting Unavailable WEST, DR SADI Oliveira Consulting Unavailable AICHHOLZ, FINANCE ASSISTANT YAMILE Primary Care Unavailable WEST, DR SADI Oliveira Attending Unavailable WEST, DR SADI Oliveira Admitting Unavailable ZIEBER, DR JOSE Crowley Consulting Unavailable WEST, DR SADI Oliveira Consulting Unavailable AICHHOLZ, FINANCE ASSISTANT YAMILE Primary Care Unavailable WEST, DR SADI Oliveira Attending Unavailable FANTA, DR SADI Oliveira Admitting Unavailable ZIEBER, DR JOSE Crowley Consulting Unavailable FANTA, DR SADI Oliveira Admitting Unavailable WEST, DR SADI Oliveira Attending Unavailable AICHHOLZ, FINANCE ASSISTANT YAMILE Primary Care Unavailable WEST, DR SADI Oliveira Consulting Unavailable AICHHOLZ, FINANCE ASSISTANT YAMILE Consulting Unavailable AICHHOLZ, FINANCE ASSISTANT YAMILE Primary Care Unavailable AICHHOLZ, FINANCE ASSISTANT YAMILE Attending Unavailable AICHHOLZ, FINANCE ASSISTANT YAMILE Admitting Unavailable AICHHOLZ, FINANCE ASSISTANT YAMILE Admitting Unavailable AICHHOLZ, FINANCE ASSISTANT YAMILE Attending Unavailable AICHHOLZ, FINANCE ASSISTANT YAMILE Primary Care Unavailable AICHHOLZ, FINANCE ASSISTANT YAMILE Consulting Unavailable ADONAY, DR JOSE Crowley Consulting Unavailable AICHHOLZ, FINANCE ASSISTANT YAMILE Consulting Unavailable AICHHOLZ, FINANCE ASSISTANT YAMILE Primary Care Unavailable AICHHOLZ, FINANCE ASSISTANT YAMILE Attending Unavailable AICHHOLZ, FINANCE ASSISTANT YAMILE Admitting Unavailable ADONAY, DR JOSE Crowley Consulting Unavailable FRANDY ., DR MATOS Attending Unavailable FRANDY ., DR MATOS Admitting Unavailable AICHHOLZ, FINANCE ASSISTANT YAMILE Primary Care Unavailable FRANDY ., DR MATOS Consulting Unavailable CONNIE COTA Consulting Unavailable MARIAN HIGGINS Consulting Unavailable STAR Montejo, MADDIE Attending Unavailable STAR ., MADDIE Admitting Unavailable AICHHOLZ, FINANCE ASSISTANT YAMILE Primary Care Unavailable JOSE RICKETTS Consulting Unavailable STAR ., MADDIE Consulting Unavailable RONALDO, MARIAN Consulting Unavailable RONALDO, MARIAN Attending Unavailable RONALDO, MARIAN Admitting Unavailable AICHHOLZ, FINANCE ASSISTANT YAMILE Primary Care Unavailable PAKO JERRY Consulting Unavailable ANA VAZ Consulting Unavailable RONALDO, MARIAN Attending Unavailable RONLADO, MARIAN Admitting Unavailable AICHHOLZ, FINANCE ASSISTANT YAMILE Primary Care Unavailable LEROY PRETTY Consulting Unavailable Ludy Garcia Consulting Unavailable FANTA, DR SADI Oliveira Consulting Unavailable AICHHOLZ, FINANCE ASSISTANT YAMILE Primary Care Unavailable FANTA, DR SADI [...] 3 Episodic Other aftercare (1 source) 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; 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] Onset: 3 Episodic Other [...] Basophils (Bld) [#/Vol] 0.03 10*3/uL Normal <0.11 [facility] Comment on above: Order Comment: Speci men Type: BLOOD SPECIMEN Ordering Facility: [facility] Address: [address] [place], [place] [address] Performed By: #### 1 4196-0, 31261-9 #### [facility] [id number] [address] [place] [address] [place] Basophils/100 WBC (Bld) 0.5 % Normal [facility] Comment on above: Order Comment: Speci men Type: BLOOD SPECIMEN Ordering Facility: [facility] Address: [address] [place] [address] Performed By: #### 1 4196-0, 68391-5 #### [facility] [id number] [address] [place] [address] [place] Differential cell count method Nom (Bld) Auto Normal [facility] Comment on above: Order Comment: Speci men Type: BLOOD SPECIMEN Ordering Facility: [facility] Address: [address] [place] [address] Performed By: #### 1 4196-0, 51714-0 #### [facility] [id number] [address] [place] [address] [place] Eosinophils (Bld) [#/Vol] 0.10 10*3/uL Normal <0.46 [facility] Comment on above: Order Comment: Speci men Type: BLOOD SPECIMEN Ordering Facility: [facility] Address: [address] [place] [address] Performed By: #### 1 4196-0, 26752-3 #### [facility] [id number] [address] [place] [address] [place] Eosinophils/100 WBC (Bld) 1.8 % Normal [facility] Comment on above: Order Comment: Speci men Type: BLOOD SPECIMEN Ordering Facility: [facility] Address: [address] [place] [address] Performed By: #### 1 4196-0, 48115-5 #### [facility] [id number] [address] [place] [address] [place] Erythrocyte distribution width (RBC) [Ratio] 16.5 % High 11.5-15.0 [facility] Comment on above: Order Comment: Speci men Type: BLOOD SPECIMEN Ordering Facility: [facility] Address: [address] [place] [address] Performed By: #### 1 4196-0, 76316-0 #### [facility] [id number] [address] [place] [address] [place] Hematocrit (Bld) [Volume fraction] 34.9 % Low 36.0-46.0 [facility] Comment on above: Order Comment: Speci men Type: BLOOD SPECIMEN Ordering Facility: [facility] Address: [address] [place] [address] Performed By: #### 1 4196-0, 39593-4 #### [facility] [id number] [address] [place] [address] [place] Hemoglobin (Bld) [Mass/Vol] 10.5 g/dL Low 11.5-15.5 [facility] Comment on above: Order Comment: Speci men Type: BLOOD SPECIMEN Ordering Facility: [facility] Address: [address] [place] [address] Performed By: #### 1 4196-0, 58541-6 #### [facility] [id number] [address] [place] [address] [place] Immature granulocytes (Bld) [#/Vol] 10*3/uL Normal <0.10 [facility] Comment on above: Order Comment: Speci men Type: BLOOD SPECIMEN Ordering Facility: [facility] Address: [address] [place] [address] Performed By: #### 1 4196-0, 82865-7 #### [facility] [place] [id number] [address] [place] [address] [place] Immature granulocytes/100 WBC (Bld) 0.2 % Normal [facility] Comment on above: Order Comment: Speci men Type: BLOOD SPECIMEN Ordering Facility: [facility] Address: [address] [place] [address] Performed By: #### 1 4196-0, 32889-7 #### [facility] [id number] [address] [place] [address] [place] Lymphocytes (Bld) [#/Vol] 1.77 10*3/uL Normal 1.00-4.00 [facility] Comment on above: Order Comment: Speci men Type: BLOOD SPECIMEN Ordering Facility: [facility] Address: [address] [place] [address] Performed By: #### 1 4196-0, 83355-5 #### [facility] [id number] [address] [place] [address] [place] Lymphocytes/100 WBC (Bld) 31.3 % Normal [facility] Comment on above: Order Comment: Speci men Type: BLOOD SPECIMEN Ordering Facility: [facility] Address: [address] [place] [address] Performed By: #### 1 4196-0, 73257-5 #### [facility] [id number] [address] [place] [address] [place] MCH (RBC) [Entitic mass] 17.9 pg Low 26.0-34.0 [facility] Comment on above: Order Comment: Speci men Type: BLOOD SPECIMEN Ordering Facility: [facility] Address: [address] [place] [address] Performed By: #### 1 4196-0, 20045-8 #### [facility] [id number] [address] [place] [address] [place] MCHC (RBC) [Mass/Vol] 30.1 g/dL Low 30.5-36.0 [facility] Comment on above: Order Comment: Speci men Type: BLOOD SPECIMEN Ordering Facility: [facility] Address: [address] [place] [address] Performed By: #### 1 4196-0, 68232-1 #### [facility] [id number] [address] [place] [address] [place] MCV (RBC) [Entitic vol] 59.7 fL Low 80.0-100.0 [facility] Comment on above: Order Comment: Speci men Type: BLOOD SPECIMEN Ordering Facility: [facility] Address: [address] [place] [address] Performed By: #### 1 4196-0, 89263-5 #### [facility] [id number] [address] [place] [address] [place] Monocytes (Bld) [#/Vol] 0.25 10*3/uL Normal <0.87 [facility] Comment on above: Order Comment: Speci men Type: BLOOD SPECIMEN Ordering Facility: [facility] Address: [address] [place] [address] Performed By: #### 1 4196-0, 81655-5 #### [facility] [id number] [address] [place] [address] [place] Monocytes/100 WBC (Bld) 4.4 % Normal [facility] Comment on above: Order Comment: Speci men Type: BLOOD SPECIMEN Ordering Facility: [facility] Address: [address] [place] [address] Performed By: #### 1 4196-0, 64423-0 #### [facility] [id number] [address] [place] [address] [place] Neutrophils (Bld) [#/Vol] 3.49 10*3/uL Normal 1.45-7.50 [facility] Comment on above: Order Comment: Speci men Type: BLOOD SPECIMEN Ordering Facility: [facility] Address: [address] [place] [address] Performed By: #### 1 4196-0, 73678-4 #### [facility] [id number] [address] [place] [address] [place] Neutrophils/100 WBC (Bld) 61.8 % Normal [facility] Comment on above: Order Comment: Speci men Type: BLOOD SPECIMEN Ordering Facility: [facility] Address: [address] [place] [address] Performed By: #### 1 4196-0, 75702-9 #### [facility] [place] [id number] [address] [place] [address] [place] Nucleated RBC (Bld) [#/Vol] 10*3/uL Normal <0.01 [facility] Comment on above: Order Comment: Speci men Type: BLOOD SPECIMEN Ordering Facility: [facility] Address: [address] [place] [address] Performed By: #### 1 4196-0, 43397-4 #### [facility] [place] [id number] [address] [place] [address] [place] Nucleated RBC/100 WBC (Bld) [Ratio] 0.0 /100 WBC Normal [facility] Comment on above: Order Comment: Speci men Type: BLOOD SPECIMEN Ordering Facility: [facility] Address: [address] [place] [address] Performed By: #### 1 4196-0, 28279-6 #### [facility] [place] [id number] [address] [place] [address] [place] Platelet mean volume (Bld) [Entitic vol] 10.5 fL Normal 9.0-12.7 [facility] Comment on above: Order Comment: Speci men Type: BLOOD SPECIMEN Ordering Facility: [facility] Address: [address] [place] [address] Performed By: #### 1 4196-0, 93243-0 #### [facility] CLIA [id number] [address] [place] [address] [place] Platelets (Bld) [#/Vol] 325 10*3/uL Normal 150-400 [facility] Comment on above: Order Comment: Speci men Type: BLOOD SPECIMEN Ordering Facility: [facility] Address: [address] [place] [address] Result Comment: Resu lts checked and verified.No clot detected. Performed By: #### 1 4196-0, 97443-9 #### [facility] CLIA [id number] [address] [place] [address] [place] RBC (Bld) [#/Vol] 5.85 10*6/uL High 3.90-5.20 [facility] Comment on above: Order Comment: Speci men Type: BLOOD SPECIMEN Ordering Facility: [facility] Address: [address] [place] [address] Performed By: #### 1 4196-0, 83997-1 #### [facility] CLIA [id number] [address] [place] [address] [place] WBC (Bld) [#/Vol] 5.65 10*3/uL Normal 3.70-11.00 [facility] Comment on above: Order Comment: Speci men Type: BLOOD SPECIMEN Ordering Facility: [facility] Address: [address] [place] [address] Performed By: #### 1 4196-0, 39298-5 #### [facility] CLIA [id number] [address] [place] [address] [place] CNOVSPon 2023 CNOVSP Visit (SP) Office ([facility]) TORIE JOHNSTON ([id number]) 1990 F Date Time Provider Department 06/20/23 2:00 PM FRANCIS MA [facility] During your visit today, we recorded the following information about you: Pulse Respiration Blood pressure Weight 86/minute 20/minute 127/81 106.3 kg Height Last Period 1.6 m 06/17/23 Francis Ma MD 2023 2:44 PM Signed [facility], [place] Department of Hematologic Oncology and Blood Disorders PATIENT NAME: Torie [facility] NO: [id number] ATTENDING PHYSICIAN: Francis Ma MD. DATE OF [...] Abs Lymph 1.00 - 4.00 k/uL 1.42 [place]% % 5.3 Abs [place] <0.87 k/uL 0.21 [place]% % 1.5 Abs [...] in 2018 during ). 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 She was placed on folic [...] of transfusion (more content not included)... Normal [facility] Comprehensive metabolic 2000 panelon 2023 Albumin [Mass/Vol] 4.4 g/dL Normal 3.9-4.9 [facility] Comment on above: Order Comment: Speci men Type: BLOOD SPECIMEN Ordering Facility: [facility] Address: [address] [place] [address] Performed By: #### 2 4323-8, 27064-4 #### [facility] CLIA [id number] [address] [place] [address] [place] ALP [Catalytic activity/Vol] 68 U/L Normal 34-123 [facility] Comment on above: Order Comment: Speci men Type: BLOOD SPECIMEN Ordering Facility: [facility] Address: [address] [place] [address] Performed By: #### 2 4323-8, 09655-5 #### [facility] [place] [id number] [address] [place] [address] [place] ALT [Catalytic activity/Vol] 28 U/L Normal 7-38 [facility] Comment on above: Order Comment: Speci men Type: BLOOD SPECIMEN Ordering Facility: [facility] Address: [address] [place] [address] Performed By: #### 2 4323-8, 70452-0 #### [facility] [place] [id number] [address] [place] [address] [place] Anion gap [Moles/Vol] 10 mmol/L Normal 9-18 [facility] Comment on above: Order Comment: Speci men Type: BLOOD SPECIMEN Ordering Facility: [facility] Address: [address] [place] [address] Performed By: #### 2 4323-8, 00677-3 #### [facility] [place] [id number] [address] [place] [address] [place] AST [Catalytic activity/Vol] 22 U/L Normal 13-35 [facility] Comment on above: Order Comment: Speci men Type: BLOOD SPECIMEN Ordering Facility: [facility] Address: [address] [place] [address] Performed By: #### 2 4323-8, 54115-0 #### [facility] [place] [id number] [address] [place] [address] [place] Bilirubin [Mass/Vol] 0.4 mg/dL Normal 0.2-1.3 [facility] Comment on above: Order Comment: Speci men Type: BLOOD SPECIMEN Ordering Facility: [facility] Address: [address] [place] [address] Performed By: #### 2 4323-8, 97341-2 #### [facility] CLIA [id number] [address] [place] [address] [place] Calcium [Mass/Vol] 9.1 mg/dL Normal 8.5-10.2 [facility] Comment on above: Order Comment: Speci men Type: BLOOD SPECIMEN Ordering Facility: [facility] Address: [address] [place] [address] Performed By: #### 2 4323-8, 70020-7 #### [facility] CLIA [id number] [address] [place] [address] [place] Chloride [Moles/Vol] 106 mmol/L High 97-105 [facility] Comment on above: Order Comment: Speci men Type: BLOOD SPECIMEN Ordering Facility: [facility] Address: [address] [place] [address] Performed By: #### 2 4323-8, 99240-0 #### [facility] CLIA [id number] [address] [place] [address] [place] CO2 [Moles/Vol] 25 mmol/L Normal 22-30 [facility] Comment on above: Order Comment: Speci men Type: BLOOD SPECIMEN Ordering Facility: [facility] Address: [address] [place] [address] Performed By: #### 2 4323-8, 47170-4 #### [facility] CLIA [id number] [address] [place] [address] [place] Creatinine [Mass/Vol] 0.90 mg/dL Normal 0.58-0.96 [facility] Comment on above: Order Comment: Speci men Type: BLOOD SPECIMEN Ordering Facility: [facility] Address: [address] [place] [address] Performed By: #### 2 4323-8, 67440-0 #### [facility] [place] [id number] [address] [place] [address] [place] Creatinine and Glomerular filtration rate.predicted panel (S/P/Bld) 86 mL/min/1.73m??? Normal >=60 [facility] Comment on above: Order Comment: Tiffanie spence Type: BLOOD SPECIMEN Ordering Facility: [facility] Address: [address] [place] [address] Result Comment: Kenyatta mated Glomerular Filtration Rate [...] actual GFR. Performed By: #### 2 4323-8, 14277-3 #### [facility] [place] [id number] [address] [place] [address] [place] Glucose [Mass/Vol] 92 mg/dL Normal 74-99 [facility] Comment on above: Order Comment: Tiffanie spence Type: BLOOD SPECIMEN Ordering Facility: [facility] Address: [address] [place] [address] Result Comment: The [place] Diabetes Association (ADA) provides guidance for cutoff [...] Standards of Medical Care in Diabetes 2016, [place] Diabetes Association. Diabetes Care. 2016.39(Suppl 1). Performed By: #### 2 4323-8, 44168-5 #### [facility] [place] [id number] [address] [place] [address] [place] Potassium [Moles/Vol] 4.0 mmol/L Normal 3.7-5.1 [facility] Comment on above: Order Comment: Speci men Type: BLOOD SPECIMEN Ordering Facility: [facility] Address: [address] [place] [address] Performed By: #### 2 4323-8, 00384-1 #### [facility] [id number] [address] [place] [address] [place] Protein [Mass/Vol] 7.4 g/dL Normal 6.3-8.0 [facility] Comment on above: Order Comment: Speci men Type: BLOOD SPECIMEN Ordering Facility: [facility] Address: [address] [place] [address] Performed By: #### 2 4323-8, 70290-1 #### [facility] [id number] [address] [place] [address] [place] Sodium [Moles/Vol] 141 mmol/L Normal 136-144 [facility] Comment on above: Order Comment: Speci men Type: BLOOD SPECIMEN Ordering Facility: [facility] Address: [address] [place] [address] Performed By: #### 2 4323-8, 75693-7 #### [facility] [id number] [address] [place] [address] [place] Urea nitrogen [Mass/Vol] 16 mg/dL Normal 7-21 [facility] Comment on above: Order Comment: Speci men Type: BLOOD SPECIMEN Ordering Facility: [facility] Address: [address] [place] [address] Performed By: #### 2 4323-8, 24912-6 #### [facility] [id number] [address] [place], [place] [id number] [place] Ferritin SerPl-mCncon 2023 Ferritin [Mass/Vol] 73.6 ng/mL Normal 14.7-205.1 [facility] Comment on above: Order Comment: Speci men Type: BLOOD SPECIMEN Ordering Facility: [facility] Address: [address] [place] [address] Performed By: #### 4 542-7, 2276-4 #### [facility] CLIA [id number] [address] [place] [address] [place] Haptoglob SerPl-mCncon 06-20 Haptoglobin [Mass/Vol] 66 mg/dL Normal 31-238 [facility] Comment on above: Order Comment: Speci men Type: BLOOD SPECIMEN Ordering Facility: [facility] Address: [address] [place] [address] Performed By: #### 4 542-7, 2276-4 #### [facility] CLIA [id number] [address] [place] [address] [place] Iron and Iron binding capaci ty panelon 2023 Iron [Mass/Vol] 66 ug/dL Normal 41-186 [facility] Comment on above: Order Comment: Speci men Type: BLOOD SPECIMEN Ordering Facility: [facility] Address: [address] [place] [address] Performed By: #### 2 4323-8, 37781-8 #### [facility] CLIA [id number] [address] [place] [address] [place] Iron binding capacity [Mass/Vol] 352 ug/dL Normal 232-386 [facility] Comment on above: Order Comment: Speci men Type: BLOOD SPECIMEN Ordering Facility: [facility] Address: [address] [place] [address] Performed By: #### 2 4323-8, 98846-3 #### [facility] CLIA [id number] [address] [place] [address] [place] Iron/TIBC [Molar ratio] 18.8 % Normal 15.0-57.0 [facility] Comment on above: Order Comment: Speci men Type: BLOOD SPECIMEN Ordering Facility: [facility] Address: [address] [place] [address] Performed By: #### 2 4323-8, 75990-7 #### [facility] [id number] [address] [place] [address] [place] LDH SerPl-cCncon 2023 LDH [Catalytic activity/Vol] 193 U/L Normal 135-214 [facility] Comment on above: Order Comment: Speci men Type: BLOOD SPECIMEN Ordering Facility: [facility] Address: [address] [place] [address] Performed By: #### 2 532-0 #### [facility] [id number] [address] [place] [address] [place] Retics #on 2023 Reticulocytes (Bld) [#/Vol] 0.99657 10*3/uL High 0.018-0.100 [facility] Comment on above: Order Comment: Speci men Type: BLOOD SPECIMEN Ordering Facility: [facility] Address: [address] [place] [address] Performed By: #### 1 4196-0, 21831-4 #### [facility] [id number] [address] [place] [place] [address] [place] Reticulocytes (Bld) [#/Vol]o n 2023 Reticulocytes/100 RBC (Bld) 2.2 % High 0.4-2.0 [facility] Comment on above: Order Comment: Speci men Type: BLOOD SPECIMEN Ordering Facility: [facility] Address: [address] [place] [address] Performed By: #### 1 4196-0, 61217-5 #### [facility] [id number] [address] [place] [address] OF [facility] CBC AUTO DIFFon 09-20-2022 BASO # 0.0 103/ul Normal 0.0-0.1 [facility] Comment on above: Performed By: #### C BC ####[facility] [address] [place] [address]Dr. Zuly Aparicio Basophils/100 WBC (Bld) 0.5 % Normal 0.2-2.0 [facility] Comment on above: Performed By: #### C BC ####[facility] [address] [place] [address]Dr. Zuly Aparicio EO # 0.1 103/ul Normal 0.0-0.7 [facility] Comment on above: Performed By: #### C BC ####[facility] [address] [place] [address]Dr. Zuly Aparicio Eosinophils/100 WBC (Bld) 1.5 % Normal 0.9-7.0 [facility] Comment on above: Performed By: #### C BC ####[facility] [address] [place] [address]Dr. Zuly Aparicio Erythrocyte distribution width (RBC) [Ratio] 15.8 % Critically high 11.0-15.0 [facility] Comment on above: Performed By: #### C BC ####[facility] [address] [place] [address]Dr. Zuly Aparicio Hematocrit (Bld) [Volume fraction] 34.1 % Critically low 36.0-48.0 [facility] Comment on above: Performed By: #### C BC ####[facility] [address] [place] [address]Dr. Zuly Aparicio Hemoglobin (Bld) [Mass/Vol] 10.1 g/dL Critically low 12.0-16.0 [facility] Comment on above: Performed By: #### C BC ####[facility] [address] [place] [address]Dr. Zuly Aparicio IG # 0.01 10e3/ul Normal 0.00-0.03 [facility] Comment on above: Performed By: #### C BC ####[facility] [address] [place] [id number]. Zuly Aparicio IG % 0.2 % Normal 0.0-0.5 [facility] Comment on above: Performed By: #### C BC ####[facility] [address] [place] [id number]. Zuly Aparicio LYMPH # 1.6 103/ul Normal 1.2-3.8 [facility] Comment on above: Performed By: #### C BC ####[facility] [address] [place] [id number]. Zuly Aparicio Lymphocytes/100 WBC (Bld) 39.2 % Normal 20.5-60.0 [facility] Comment on above: Performed By: #### C BC ####[facility] [address] [place] [id number]. Zuly Aparicio MANUAL DIFF REQ NO Normal [facility] Comment on above: Performed By: #### C BC ####[facility] [address] [place] [id number]. Zuly Aparicio MCH (RBC) [Entitic mass] 17.7 pg Critically low 26.7-34.0 [facility] Comment on above: Performed By: #### C BC ####[facility] [address] [place] [id number]. Zuly Aparicio MCHC (RBC) [Mass/Vol] 29.6 g/dL Critically low 29.9-35.2 [facility] Comment on above: Performed By: #### C BC ####[facility] [address] [place] [id number]. Zuly Aparicio MCV (RBC) [Entitic vol] 59.7 fL Critically low 81.0-99.0 [facility] Comment on above: Performed By: #### C BC ####[facility] [address] [place] [id number]. Zuly Aparicio MONO # 0.3 103/ul Normal 0.3-0.8 [facility] Comment on above: Performed By: #### C BC ####[facility] [address] [place] [id number]. Zuly Aparicio Monocytes/100 WBC (Bld) 6.5 % Normal 1.7-12.0 [facility] Comment on above: Performed By: #### C BC ####[facility] [address] [place] [id number]. Zuly Aparicio NEUT # 2.1 103/ul Normal 1.4-6.5 [facility] Comment on above: Performed By: #### C BC ####[facility] [address] [place] [id number]. Zuly Aparicio Neutrophils/100 WBC (Bld) 52.1 % Normal 43.0-75.0 [facility] Comment on above: Performed By: #### C BC ####[facility] [address]okfas[address] [place] [id number]. Zuly Aparicio Platelet mean volume (Bld) [Entitic vol] 10.0 fL Normal 9.5-13.5 [facility] Comment on above: Performed By: #### C BC ####[facility] [address]uf[address] [place] [id number]. Zuly Aparicio PLT 333 103/ul Normal 150-450 [facility] Comment on above: Performed By: #### C BC ####[facility] [address]knlcliw[address] [place] [id number]. Zuly Aparicio RBC 5.71 106/ul Critically high 4.20-5.[address] [facility] Comment on above: Performed By: #### C BC ####[facility] [address] [place] [id number]. Zuly Aparicio WBC 4.0 103/ul Normal 4.0-11.0 [facility] Comment on above: Performed By: #### C BC ####[facility] [address] [place] [id number]. Zuly Aparicio FREE T4on 09-20-2022 Free T4 [Mass/Vol] 1.11 ng/dL Normal 0.76-1.46 [facility] Comment on above: Performed By: #### E JEFERSON HOOPER #### [facility] [address] [place] [address] Dr. Zuly Aparicio IRONon 09-20-2022 Iron [Mass/Vol] 89.0 ug/dL Normal 50.0-170.0 [facility] Comment on above: Performed By: #### CHAYITO ASHERRO #### [facility] [address] [place] [address] Dr. Zuly Aparicio PROF 14(COMP METB)on 023 Albumin [Mass/Vol] 3.7 g/dL Normal 3.4-5.0 [facility] Comment on above: Performed By: #### CHAYITO ASHERRO #### [facility] [address] [place] [address] Dr. Zuly Aparicio Albumin/Globulin [Mass ratio] 1.0 {ratio} Normal [facility] Comment on above: Performed By: #### CHAYITO ASHERRO #### [facility] [address] [place] [address] Dr. Zuly Aparicio ALP [Catalytic activity/Vol] 63 U/L Normal 46-116 [facility] Comment on above: Performed By: #### CHAYITO ASHERRO #### [facility] [address] [place] [address] Dr. Zuly Aparicio ALT [Catalytic activity/Vol] 50 U/L Normal 14-59 [facility] Comment on above: Performed By: #### CHAYITO ASHERRO #### [facility] [address] [place] [address] Dr. Zuly Aparicio Anion gap [Moles/Vol] 10.4 mmol/L Normal [facility] Comment on above: Performed By: #### CHAYITO ASHERRO #### [facility] [address] [place] [address] Dr. Zuly Aparicio AST [Catalytic activity/Vol] 24 U/L Normal 15-37 [facility] Comment on above: Performed By: #### JEFERSON ASHER #### [facility] [address] [place] [address] Dr. Zuly Aparicio Bilirubin [Mass/Vol] 0.5 mg/dL Normal 0.2-1.0 [facility] Comment on above: Performed By: #### CHAYITO ASHERRO #### [facility] [address] [place] [address] Dr. Zuly Aparicio Calcium [Mass/Vol] 8.8 mg/dL Normal 8.5-10.1 [facility] Comment on above: Performed By: #### CHAYITO ASHERRO #### [facility] [address] [place] [address] Dr. Zuly Aparicio Chloride [Moles/Vol] 108 mmol/L Critically high 98-107 [facility] Comment on above: Performed By: #### CHAYITO ASHERRO #### [facility] [address] [place] [address] Dr. Zuly Aparicio CO2 [Moles/Vol] 27.5 mmol/L Normal 21.0-32.[address] [facility] Comment on above: Performed By: #### CHAYITO ASHERRO #### [facility] [address] [place] [address] Dr. Zuly Aparicio Creatinine [Mass/Vol] 0.94 mg/dL Normal 0.55-1.02 [facility] Comment on above: Performed By: #### CHAYITO ASHERRO #### [facility] [address] [place] [address] Dr. Zuly Aparicio EGFR-AF IVORIAN >60 Normal >=[address] [facility] Comment on above: Performed By: #### CHAYITO ASHERRO #### [facility] [address] [place] [address] Dr. Zuly Aparicio EGFR-NON AF IVORIAN >60 Normal >=60 [facility] Comment on above: Performed By: #### CHAYITO ASHERRO #### [facility] [address] [place] [address] Dr. Zuly Aparicio Globulin (S) [Mass/Vol] 3.7 g/dL Normal [facility] Comment on above: Performed By: #### CHAYITO ASHERRO #### [facility] [address] [place] [address] [address] Zuly Aparicio Glucose [Mass/Vol] 83 mg/dL Normal 74-106 [facility] Comment on above: Performed By: #### Roshan HOOPER UMICRO #### [facility] [address] [place] [address] [address] Zuly Aparicio Potassium [Moles/Vol] 3.9 mmol/L Normal 3.5-5.1 [facility] Comment on above: Performed By: #### Roshan HOOPER UMICRO #### [facility] [address] [place] [address] Dr. Zuly Aparicio Protein [Mass/Vol] 7.4 g/dL Normal 6.4-8.2 [facility] Comment on above: Performed By: #### Roshan HOOPER UMFAVIOLARO #### [facility] [address] [place] [address] Dr. Zuly Aparicio Sodium [Moles/Vol] 142 mmol/L Normal 136-145 [facility] Comment on above: Performed By: #### Roshan HOOPER UMICRO #### [facility] [address] [place] [address] Dr. Zuly Aparicio Urea nitrogen [Mass/Vol] 14.0 mg/dL Normal 7.0-18.0 [facility] Comment on above: Performed By: #### Roshan HOOPER UMICRO #### [facility] [address] [place] [address] [address] Zuly Aparicio Urea nitrogen/Creatinine [Mass ratio] 14.9 mg/mg Normal [facility] Comment on above: Performed By: #### Roshan HOOPER UMICRO #### [facility] [address] [place] [address] Dr. Zuly Aparicio TSHon 09-20-2022 TSH 1.491 uIU/mL Normal 0.358-3.740 [facility] Comment on above: Performed By: #### Roshan HOOPER UMICRO #### [facility] [address] [place] [address] Dr. Zuly Aparicio VC INJ SCL MILTON DINING ROOM HOST VEINSon 0 4-11-2023 VC INJ SCL MILTON DINING ROOM HOST VEINS Patient: TORIE JOHNSTON Exam Date: 09/04/2022 : 1990 Gender:F Ordering : DR SADI JEWELL M.D. Admission #: [id number] Family : Order #: [id number] CLICK HERE TO VIEW EXAM RADIOLOGY REPORT [...] M.D. on 09/04/2022 at 12:00 Normal [facility] Covid-19 PCR (CVDTBH)on SARS-CoV-2 (COVID-19) RNA BORIS+probe Ql (Unsp spec) Not detected Normal NOT DETECTED [facility] Comment on above: Result Comment: This test is not yet approved or cleared by the [place] FDA. When there are no FDA-approved or cleared tests available, and other criteria are met, FDA can make tests available under an emergency access mechanism called an Emergency Use Authorization (EUA). The EUA for this test is supported by the [place] [employer] of Health and Human Service's (HHS's) declaration [...] SARS-CoV-2. Performed By: #### T SH #### [facility] [address] [place] [address] Dr. Zuly Aparicio INFLUENZA A AND B AGon 08-27 INFLUANEGH SEE BELOW Normal [facility] Comment on above: Result Comment: Nega tive for Flu A protein angiten. Infection due to Flu A cannot be ruled out. Flu A angiten in the sample may be below the detection limit of the test. Performed By: #### T SH #### [facility] [address] [place] [address] Dr. Zuly Aparicio INFLUBNEGH SEE BELOW Normal [facility] Comment on above: Result Comment: Nega tive for Flu B protein antigen. Infection due to Flu B cannot be ruled out. Flu B antigen in the sample may be below the detection limit of the test. Performed By: #### T SH #### [facility] [address] [place] [address] Dr. Zuly Aparicio INFLUENZA A AG Negative Normal NEGATIVE SEE COMMENT [facility] Comment on above: Performed By: #### T SH #### [facility] [address] [place] [address] Dr. Zuly Aparicio INFLUENZA B AG Negative Normal NEGATIVE SEE COMMENT [facility] Comment on above: Performed By: #### T SH #### [facility] [address] [place] [address] Dr. Zuly Aparicio SYMPTOMATIC COVID-19 ANTIGEN on 08-27-2022 EUA Statement SEE BELOW Normal [facility] Comment on above: Result Comment: This [...] sooner. Performed By: #### C VDAGS #### [facility] [address] [place] [address] Dr. Zuly Aparicio SARS-CoV-2 (COVID-19) RNA BORIS+probe Ql (Unsp spec) Negative Normal NEGATIVE [facility] Comment on above: Performed By: #### C VDAGS #### [facility] [address] [place] [address] Dr. Zuly Aparicio XR CHEST 1 Von [...] JOSE WOOD Date: 2022-08-27 17:17 Normal [facility] VC CONSULT FOLLOWUPon 2022 VC CONSULT FOLLOWUP Patient: TORIE JOHNSTON Exam Date: 08/21/2022 : 1990 Gender:F Ordering : DR SADI JEWELL M.D. Admission #: [id number] Family : Order #: [id number] CLICK HERE TO VIEW EXAM RADIOLOGY REPORT [...] Sadi Jewell MD on 08/21/2022 at 11:18 [facility] VC EXT VENOUS RT LIMITEDon 0 08-21-2022 VC EXT VENOUS RT LIMITED Patient: TORIE JOHNSTON Exam Date: 08/21/2022 : 1990 Gender:F Ordering : DR SADI JEWELL M.D. Admission #: [id number] Family : Order #: [id number] CLICK HERE TO VIEW EXAM RADIOLOGY REPORT [...] Sadi Jewell MD on 08/21/2022 at 09:43 [facility] VC INJ FOAM SCLERO W US MLTI on 08-16-2022 VC INJ FOAM SCLERO W US MLTI Patient: TORIE JOHNSTON Exam Date: 08/16/2022 : 1990 Gender:F Ordering : DR SADI JEWELL M.D. Admission #: [id number] Family : Order #: [id number] CLICK HERE TO VIEW EXAM RADIOLOGY REPORT [...] Jose Wood M.D. on 08/16/2022 at 11:58 [facility] W MANUAL DIFFon 05-16- 22 ATYPICAL LYMPH # 0.32 103/ul Normal [facility] Comment on above: Performed By: #### T SH #### [facility] [address] [place] [address] Dr. Zuly Aparicio ATYPICAL LYMPH % 3 % Normal [facility] Comment on above: Performed By: #### T SH #### [facility] [address] [place] [address] [address] Zuly Aparicio BAND # 0.0 103/ul Normal 0.0-0.3 [facility] Comment on above: Performed By: #### T SH #### [facility] [address] [place] [address] Dr. Zuly Aparicio BAND % 0 % Normal 0-5 [facility] Comment on above: Performed By: #### T SH #### [facility] [address] [place] [address] Dr. Zuly Aparicio BASOM # 0.00 103/ul Normal 0.00-0.10 [facility] Comment on above: Performed By: #### T SH #### [facility] [address] [place] [address] Dr. Zuly Aparicio BASOM % 0.0 % Critically low 0.2-2.0 [facility] Comment on above: Performed By: #### T SH #### [facility] [address] [place] [address] Dr. Zuly Aparicio BLAST # Normal [facility] Comment on above: Performed By: #### T SH #### [facility] [address] [place] [address] Dr. Zuly Aparicio BLAST % Normal [facility] Comment on above: Performed By: #### T SH #### [facility] [address] [place] [address] Dr. Zuly Aparicio CORRECTED WBC Normal 4.0-11.0 [facility] Comment on above: Performed By: #### T SH #### [facility] [address] [place] [address] Dr. Zuly Aparicio EOS # 0.10 103/ul Normal 0.00-0.70 [facility] Comment on above: Performed By: #### T SH #### [facility] [address] [place] [address] [address] Zuly Aparicio EOS% 1.0 % Normal 0.9-7.0 [facility] Comment on above: Performed By: #### T SH #### [facility] [address] [place] [address] [address] Zuly Aparicio HCT 34.3 % Critically low 36.0-48.0 [facility] Comment on above: Performed By: #### T SH #### [facility] [address] [place] [address] [address] Zuly Aparicio HGB 10.6 g/dl Critically low 12.0-16.0 [facility] Comment on above: Performed By: #### T SH #### [facility] [address] [place] [address] Dr. Zuly Aparicio LYMPHM # 0.32 103/ul Critically low 1.20-3.80 [facility] Comment on above: Performed By: #### T SH #### [facility] [address] [place] [address] [address] Zuly Aparicio LYMPHM% 3.0 % Critically low 20.5-60.0 [facility] Comment on above: Performed By: #### T SH #### [facility] [address] [place] [address] [address] Zuly Aparicio MCH 18.2 pg Critically low 26.7-34.0 [facility] Comment on above: Performed By: #### T SH #### [facility] [address] [place] [address] [address] Zuly Aparicio MCHC 30.9 g/dl Normal 29.9-35.2 [facility] Comment on above: Performed By: #### T SH #### [facility] [address] [place] [address] Dr. Zuly Aparicio MCV 59.0 fL Critically low 81.0-99.0 [facility] Comment on above: Performed By: #### T SH #### [facility] [address] [place] [address] Dr. Zuly Aparicio METAMYELOCYTE # Normal [facility] Comment on above: Performed By: #### T SH #### [facility] [address] [place] [address] Dr. Zuly Aparicio METAMYELOCYTE % Normal [facility] Comment on above: Performed By: #### T SH #### [facility] [address] [place] [address] Dr. Zuly Aparicio MICROCYTOSIS 3+ Normal [facility] Comment on above: Performed By: #### T SH #### [facility] [address] [place] [address] Dr. Zuly Aparicio MONOM# 0.32 103/ul Normal 0.30-0.80 [facility] Comment on above: Performed By: #### T SH #### [facility] [address] [place] [address] Dr. Zuly Aparicio MONOM% 3.0 % Normal 1.7-12.0 [facility] Comment on above: Performed By: #### T SH #### [facility] [address] [place] [address] Dr. Zuly Aparicio MPV 10.6 fL Normal 9.5-13.5 [facility] Comment on above: Performed By: #### T SH #### [facility] [address] [place] [address] Dr. Zuly Aparicio MYELOCYTE # Normal [facility] Comment on above: Performed By: #### T SH #### [facility] [address] [place] [address] Dr. Zuly Aparicio MYELOCYTE % Normal [facility] Comment on above: Performed By: #### T SH #### [facility] [address] [place] [address] Dr. Zuly Apaircio NRBC Normal [facility] Comment on above: Performed By: #### T SH #### [facility] [address] [place] [address] Dr. Zuly Aparicio OVALOCYTES SLIGHT Normal [facility] Comment on above: Performed By: #### T SH #### [facility] [address] [address] [address] Zuly Aparicio PLT 290 103/ul Normal 150-450 [facility] Comment on above: Performed By: #### T SH #### [facility] [address] [address] [address] Zuly Aparicio RBC 5.81 106/ul Critically high 4.20-5.40 [facility] Comment on above: Performed By: #### T SH #### [facility] [address] [address] [address] Zuly Aparicio RDW 15.4 % Critically high 11.0-15.0 [facility] Comment on above: Performed By: #### T SH #### [facility] [address] [address] [address] Zuly Aparicio SEG # 9.45 103/ul Critically high 1.40-6.50 [facility] Comment on above: Performed By: #### T SH #### [facility] [address] [address] [address] Zuly Aparicio SEG % 90.0 % Critically high 43.0-75.0 [facility] Comment on above: Performed By: #### T SH #### [facility] [address] [address] [address] Zuly Aparicio TOXIC GRANULATION SLIGHT Normal [facility] Comment on above: Performed By: #### T SH #### [facility] [address] [address] [address] Zuly Aparicio WBC 10.5 103/ul Normal 4.0-11.0 [facility] Comment on above: Performed By: #### T SH #### [facility] [address] [address] [address] Zuly Aparicio CULTURE URINEon 05-16-2022 CULTURE URINE Culture Observations : LIGHT GROWTH OF MIXED GENITAL JI. NO POTENTIAL PATHOGENS SEEN. Normal [facility] Comment on above: Performed By: #### U RCX ####[facility] [address] [address]Dr. Zuly Aparicio Covid-19 PCR (CVDTBH)on 04-27 SARS-CoV-2 (COVID-19) RNA BORIS+probe Ql (Unsp spec) Not detected Normal NOT DETECTED [facility] Comment on above: Result Comment: This test is not yet approved or cleared by the [place] FDA. When there are no FDA-approved or cleared tests available, and other criteria are met, FDA can make tests available under an emergency access mechanism called an Emergency Use Authorization (EUA). The EUA for this test is supported by the [employer] of Health and Human Service's (HHS's) declaration [...] SARS-CoV-2. Performed By: #### T SH #### [facility] [address] [place] [address] Dr. Zuly Aparicio ER URINE PROFILEon 2 Bilirubin Ql (U) Negative Normal NEGATIVE [facility] Comment on above: Performed By: #### T SH #### [facility] [address] [place] [address] Dr. Zuly Aparicio Clarity (U) CLEAR Normal CLEAR [facility] Comment on above: Performed By: #### T SH #### [facility] [address] [place] [address] Dr. Zuly Aparicio Color (U) YELLOW Normal YELLOW [facility] Comment on above: Performed By: #### T SH #### [facility] [address] [place] [address] Dr. Zuly JUDD A micrscopic examination will be performed if indicated. Normal [facility] Comment on above: Performed By: #### T SH #### [facility] [address] [place] [address] Dr. Zuly Aparicio Glucose Ql (U) Negative Normal NEGATIVE [facility] Comment on above: Performed By: #### T SH #### [facility] [address] [place] [address] Dr. Zuly Aparicio Hemoglobin Ql (U) Negative Normal NEGATIVE [facility] Comment on above: Performed By: #### T SH #### [facility] [address] [place] [address] Dr. Zuly Aparicio Ketones Ql (U) TRACE Abnormal NEGATIVE [facility] Comment on above: Performed By: #### T SH #### [facility] [address] [place] [address] Dr. Zuly Aparicio LEUKOCYTES TRACE Abnormal NEGATIVE [facility] Comment on above: Performed By: #### T SH #### [facility] [address] [place] [address] Dr. Zuly Aparicio Nitrite Ql (U) Negative Normal NEGATIVE [facility] Comment on above: Performed By: #### T SH #### [facility] [address] [place] [address] Dr. Zuly Aparicio pH (U) 5.5 [pH] Normal 5-9 [facility] Comment on above: Performed By: #### T SH #### [facility] [address] [place] [address] Dr. Zuly Aparicio SPEC GRAVITY 1.020 Normal 1.005-<=1.02 5 [facility] Comment on above: Performed By: #### T SH #### [facility] [address] [place] [address] Dr. Zuly Aparicio UA PROTEIN Negative Normal NEGATIVE/ TRACE [facility] Comment on above: Performed By: #### T SH #### [facility] [address] [place] [address] Dr. Zuly Aparicio UR MICRO IND INDICATED Normal [facility] Comment on above: Performed By: #### T SH #### [facility] [address] [place] [address] Dr. Zuly Aparicio Urobilinogen Qn (U) 1.0 {Isamar'U}/dL Normal 0.2 - 1. 0 [facility] Comment on above: Performed By: #### T SH #### [facility] [address] [address] [address] Zuly Aparicio INFLUENZA A AND B AGon 05-16 INFLUENZA A AG Negative Normal NEGATIVE SEE COMMENT [facility] Comment on above: Performed By: #### I NFLUAB #### [facility] [address] [address] [address] Zuly Aparicio INFLUENZA B AG Negative Normal NEGATIVE SEE COMMENT [facility] Comment on above: Performed By: #### I NFLUAB #### [facility] [address] [address] [address] Zuly Aparicio INTERNAL CONTROLS Within Normal Limits Normal Wi thin Normal Limits [facility] Comment on above: Performed By: #### I NFLUAB #### [facility] [address] [address] [address] Zuly Aparicio PREG HCG QUALon 05-16-2022 , QUAL Negative Normal NEGATIVE [facility] Comment on above: Performed By: #### T SH #### [facility] [address] [address] [address] Zuly Aparicio PROF 14(COMP METB)on 022 Albumin [Mass/Vol] 3.6 g/dL Normal 3.4-5.0 [facility] Comment on above: Performed By: #### C MP #### [facility] [address] [place] [address] Dr. Zuly Aparicio Albumin/Globulin [Mass ratio] 0.9 {ratio} Normal [facility] Comment on above: Performed By: #### C MP #### [facility] [address] [place] [address] Dr. Zuly Aparicio ALP [Catalytic activity/Vol] 88 U/L Normal 46-116 [facility] Comment on above: Performed By: #### C MP #### [facility] [address] [place] [address] Dr. Zuly Aparicio ALT [Catalytic activity/Vol] 52 U/L Normal 14-59 [facility] Comment on above: Performed By: #### C MP #### [facility] [address] [address] [address] Zuly Aparicio Anion gap [Moles/Vol] 13.4 mmol/L Normal [facility] Comment on above: Performed By: #### C MP #### [facility] [address] [address] [address] Zuly Aparicio AST [Catalytic activity/Vol] 29 U/L Normal 15-37 [facility] Comment on above: Performed By: #### C MP #### [facility] [address] [place] [address] Dr. Zuly Aparicio Bilirubin [Mass/Vol] 1.2 mg/dL Critically high 0.2-1.0 [facility] Comment on above: Performed By: #### C MP #### [facility] [address] [place] [address] Dr. Zuly Aparicio Calcium [Mass/Vol] 8.7 mg/dL Normal 8.5-10.1 [facility] Comment on above: Performed By: #### C MP #### [facility] [address] [place] [address] Dr. Zuly Aparicio Chloride [Moles/Vol] 101 mmol/L Normal 98-107 [facility] Comment on above: Performed By: #### C MP #### [facility] [address] [place] [address] Dr. Zuly Aparicio CO2 [Moles/Vol] 25.5 mmol/L Normal 21.0-32.[address] [facility] Comment on above: Performed By: #### C MP #### [facility] [address] [place] [address] Dr. Zuly Aparicio Creatinine [Mass/Vol] 1.07 mg/dL Critically high 0.55-1.02 [facility] Comment on above: Performed By: #### C MP #### [facility] [address] [place] [address] Dr. Zuly Aparicio EGFR-AF IVORIAN >60 Normal >=[address] [facility] Comment on above: Performed By: #### C MP #### [facility] [address] [place] [address] Dr. Zuly Aparicio EGFR-NON AF IVORIAN 59 mL/min/1.73m2 Critically low >=60 [facility] Comment on above: Performed By: #### C MP #### [facility] [address] [address] [address] Zuly Aparicio Globulin (S) [Mass/Vol] 4.0 g/dL Normal [facility] Comment on above: Performed By: #### C MP #### [facility] [address] [address] [address] Zuly Aparicio Glucose [Mass/Vol] 111 mg/dL Critically high 74-106 T [facility] Comment on above: Performed By: #### C MP #### [facility] [address] [place] [address] Dr. Zuly Aparicio Potassium [Moles/Vol] 3.9 mmol/L Normal 3.5-5.1 [facility] Comment on above: Performed By: #### C MP #### [facility] [address] [address] [address] Zuly Aparicio Protein [Mass/Vol] 7.6 g/dL Normal 6.4-8.2 [facility] Comment on above: Performed By: #### C MP #### [facility] [address] [place] [address] Dr. Zuly Aparicio Sodium [Moles/Vol] 136 mmol/L Normal 136-145 [facility] Comment on above: Performed By: #### C MP #### [facility] [address] [address] [address] Zuly Aparicio Urea nitrogen [Mass/Vol] 11.0 mg/dL Normal 7.0-18.0 [facility] Comment on above: Performed By: #### C MP #### [facility] [address] [place] [address] Dr. Zuly Aparicio Urea nitrogen/Creatinine [Mass ratio] 10.3 mg/mg Normal [facility] Comment on above: Performed By: #### C MP #### [facility] [address] [place] [address] Dr. Zuly Aparicio STREPT SCREENon 05-16-2022 STREP SCREEN A Positive Abnormal NEGATIVE [facility] Comment on above: Performed By: #### E CHAYITO HOOPERRO #### [facility] [address] [place] [address] Dr. Zuly Aparicio URINE MICROSCOPIC ONLYon BACTERIA MODERATE Abnormal NONE SEEN [facility] Comment on above: Performed By: #### T SH #### [facility] [address] [place] [address] Dr. Zuly Aparicio Bacteria identified Cx Nom (U) INDICATED Normal [facility] Comment on above: Performed By: #### T SH #### [facility] [address] [place] [address] Dr. Zuly Aparicio CAST NONE SEEN Normal NONE SEEN [facility] Comment on above: Performed By: #### T SH #### [facility] [address] [place] [address] Dr. Zuly Aparicio Crystals LM Nom (Urine sed) NONE SEEN Normal NONE SEEN [facility] Comment on above: Performed By: #### T SH #### [facility] [address] [place] [address] Dr. Zuly Aparicio Epithelial cells LM Ql (Urine sed) MANY Abnormal NONE SEEN /RARE [facility] Comment on above: Performed By: #### T SH #### [facility] [address] [place] [address] Dr. Zuly Aparicio MUCOUS NONE SEEN Normal NONE SEEN [facility] Comment on above: Performed By: #### T SH #### [facility] [address] [place] [address] Dr. Zuly Aparicio RBC 2-5 Abnormal 0-2 [facility] Comment on above: Performed By: #### T SH #### [facility] [address] [place] [address] Dr. Zuly Aparciio WBC 5-10 Abnormal NONE SEEN [facility] Comment on above: Performed By: #### T SH #### [facility] [address] [place] [address] Dr. Zuly Aparicio XR CHEST 1 Von [...] PAKO JERRY Date: 2022-05-16 05:03 Normal [facility] AMYLASEon 04-19-2022 Amylase [Catalytic activity/Vol] 41 U/L Normal 25-115 [facility] Comment on above: Performed By: #### L IPA, ANA #### [facility] [address] [place], [place] [address] Dr. Zuly Aparicio CBC AUTO DIFFon 04-19-2022 BASO # 0.0 103/ul Normal 0.0-0.1 [facility] Comment on above: Performed By: #### C BC ####[facility] [address] [id number]. Zuly Aparicio Basophils/100 WBC (Bld) 0.4 % Normal 0.2-2.0 [facility] Comment on above: Performed By: #### C BC ####[facility] [address] [id number]. Zuly Aparicio EO # 0.2 103/ul Normal 0.0-0.7 [facility] Comment on above: Performed By: #### C BC ####[facility] [address] [id number]. Zuly Aparicio Eosinophils/100 WBC (Bld) 3.2 % Normal 0.9-7.0 [facility] Comment on above: Performed By: #### C BC ####[facility] [address] [id number] Aparicio Erythrocyte distribution width (RBC) [Ratio] 15.7 % Critically high 11.0-15.0 [facility] Comment on above: Performed By: #### C BC ####[facility] [address] [id number]. Zuly Aparicio Hematocrit (Bld) [Volume fraction] 33.1 % Critically low 36.0-48.0 [facility] Comment on above: Performed By: #### C BC ####[facility] [address] [address]Dr. Zuly Aparicio Hemoglobin (Bld) [Mass/Vol] 10.3 g/dL Critically low 12.0-16.0 [facility] Comment on above: Performed By: #### C BC ####[facility] [address] [address]Dr. Lolacuauhtemoc Markus IG # 0.01 10e3/ul Normal 0.00-0.03 [facility] Comment on above: Performed By: #### C BC ####[facility] [address] [place], [place] [address]Dr. Zuly Aparicio IG % 0.2 % Normal 0.0-0.5 [facility] Comment on above: Performed By: #### C BC ####[facility] [address] [place], [place] [address]Dr. Zuly Aparicio LYMPH # 1.8 103/ul Normal 1.2-3.8 [facility] Comment on above: Performed By: #### C BC ####[facility] [address] [place], [place] [address]Dr. Zuly Aparicio Lymphocytes/100 WBC (Bld) 34.5 % Normal 20.5-60.0 [facility] Comment on above: Performed By: #### C BC ####[facility] [address] [place], [place] [address]Dr. Zuly Aparicio MANUAL DIFF REQ NO Normal [facility] Comment on above: Performed By: #### C BC ####[facility] [address] [place], [place] [address]Dr. Zuly Aparicio MCH (RBC) [Entitic mass] 18.5 pg Critically low 26.7-34.0 [facility] Comment on above: Performed By: #### C BC ####[facility] [address] [place], [place] [address]Dr. Zuly Aparicio MCHC (RBC) [Mass/Vol] 31.1 g/dL Normal 29.9-35.2 [facility] Comment on above: Performed By: #### C BC ####[facility] [address] [id number]. Zuly Aparicio MCV (RBC) [Entitic vol] 59.3 fL Critically low 81.0-99.0 [facility] Comment on above: Performed By: #### C BC ####[facility] [address] [address]Dr. Zuly Markus MONO # 0.3 103/ul Normal 0.3-0.8 [facility] Comment on above: Performed By: #### C BC ####[facility] [address] [address]Dr. Lolacuauhtemoc Aparicio Monocytes/100 WBC (Bld) 5.9 % Normal 1.7-12.0 [facility] Comment on above: Performed By: #### C BC ####[facility] [address] [place], [place] [address]Dr. Zuly Aparicio NEUT # 2.9 103/ul Normal 1.4-6.5 [facility] Comment on above: Performed By: #### C BC ####[facility] [address] [place], [place] [address]Dr. Lolacuauhtemoc Aparicio Neutrophils/100 WBC (Bld) 55.8 % Normal 43.0-75.0 [facility] Comment on above: Performed By: #### C BC ####[facility] [address] [place], [place] [address]Dr. Lolacuauhtemoc Aparicio Platelet mean volume (Bld) [Entitic vol] 10.1 fL Normal 9.5-13.5 [facility] Comment on above: Performed By: #### C BC ####[facility] [address] [place], [place] [address]Dr. Zuly Aparicio PLT 341 103/ul Normal 150-450 [facility] Comment on above: Performed By: #### C BC ####[facility] [address] [id number]. Zuly Aparicio RBC 5.58 106/ul Critically high 4.20-5.[address] [facility] Comment on above: Performed By: #### C BC ####[facility] [address] [place], [place] [address]EiNikia Aparicio WBC 5.3 103/ul Normal 4.0-11.0 [facility] Comment on above: Performed By: #### C BC ####[facility] [address] [place], [place] [address]Te. Zluy Aparicio CT ABD/PELVIS WO CONon 04-19 CT [...] JOSEDANI RICKETTS Date: 2022-04-19 21:52 Normal [facility] ER URINE PROFILEon 2 Bilirubin Ql (U) Negative Normal NEGATIVE [facility] Comment on above: Performed By: #### E RUR, PREGU ####[facility] [address] [place], [place] [address]Dr. Yilan Aparicio Clarity (U) CLEAR Normal CLEAR [facility] Comment on above: Performed By: #### E RUR, PREGU ####[facility] [address] [place], [place] [address]Dr. Yilan Aparicio Color (U) LT. YELLOW Normal YELLOW [facility] Comment on above: Performed By: #### E RUR, PREGU ####[facility] [address] [place], [place] [address]Dr. Yilan Aparicio ERUAHD A micrscopic examination will be performed if indicated. Normal [facility] Comment on above: Performed By: #### E RUR, PREGU ####[facility] [address] [place], [place] [address]Dr. Yilan Aparicio Glucose Ql (U) Negative Normal NEGATIVE [facility] Comment on above: Performed By: #### E RUR, PREGU ####[facility] [address] [place], [place] [address]Dr. Yilan Aparicio Hemoglobin Ql (U) Negative Normal NEGATIVE [facility] Comment on above: Performed By: #### E RUR, PREGU ####[facility] [address] [place], [place] [address]Dr. Yilan Aparicio Ketones Ql (U) Negative Normal NEGATIVE [facility] Comment on above: Performed By: #### E RUR, PREGU ####[facility] [address] [place], [place] [address]Dr. Yilan Aparicio LEUKOCYTES Negative Normal NEGATIVE [facility] Comment on above: Performed By: #### E RUR, PREGU ####[facility] [address] [place], [place] [address]Dr. Yilan Aparicio Nitrite Ql (U) Negative Normal NEGATIVE [facility] Comment on above: Performed By: #### E RUR, PREGU ####[facility] [address] [address]DrNikia Aparicio pH (U) 6.0 [pH] Normal 5-9 [facility] Comment on above: Performed By: #### E RUR, PREGU ####[facility] [address] [address]Dr. Zuly Aparicio SPEC GRAVITY 1.010 Normal 1.005-<=1.02 5 [facility] Comment on above: Performed By: #### E RUR, PREGU ####[facility] [address] [address]DrNikia Aparicio UA PROTEIN Negative Normal NEGATIVE/ TRACE [facility] Comment on above: Performed By: #### E RUR, PREGU ####[facility] [address] [place], [place] [address]Dr. Zuly Aparicio UR MICRO IND NOT INDICATED Normal [facility] Comment on above: Performed By: #### E RUR, PREGU ####[facility] [address] [place], [place] [address]DrNikia Aparicio Urobilinogen Qn (U) 0.2 {Isamar'U}/dL Normal 0.2 - 1. 0 [facility] Comment on above: Performed By: #### E RUR, PREGU ####[facility] [address] [place], [place] [address]DrNikai Aparicio LIPASEon 04-19-2022 Lipase [Catalytic activity/Vol] 161.0 U/L Normal 73.0-393.0 [facility] Comment on above: Performed By: #### L IPA, ANA #### [facility] [address] [address] [address] Zuly Aparicio URon 04-19-2022 , QUAL Negative Normal NEGATIVE [facility] Comment on above: Performed By: #### E RUR, PREGU ####[facility] [address] [place], [place] [address]Dr. Zuly Aparicio PROF 14(COMP METB)on 04-19- 022 Albumin [Mass/Vol] 3.9 g/dL Normal 3.4-5.0 [facility] Comment on above: Performed By: #### T SH #### [facility] [address] [place] [address] Dr. Zuly Aparicio Albumin/Globulin [Mass ratio] 1.1 {ratio} Normal [facility] Comment on above: Performed By: #### T SH #### [facility] [address] [place] [address] Dr. Zuly Aparicio ALP [Catalytic activity/Vol] 69 U/L Normal 46-116 [facility] Comment on above: Performed By: #### T SH #### [facility] [address] [place] [address] Dr. Zuly Aparicio ALT [Catalytic activity/Vol] 46 U/L Normal 14-59 [facility] Comment on above: Performed By: #### T SH #### [facility] [address] [place] [address] Dr. Zuly Aparicio Anion gap [Moles/Vol] 12.1 mmol/L Normal [facility] Comment on above: Performed By: #### T SH #### [facility] [address] [place] [address] Dr. Zuly Aparicio AST [Catalytic activity/Vol] 24 U/L Normal 15-37 [facility] Comment on above: Performed By: #### T SH #### [facility] [address] [place] [address] Dr. Zuly Aparicio Bilirubin [Mass/Vol] 0.5 mg/dL Normal 0.2-1.0 [facility] Comment on above: Performed By: #### T SH #### [facility] [address] [place] [address] Dr. Zuly Aparicio Calcium [Mass/Vol] 8.7 mg/dL Normal 8.5-10.1 [facility] Comment on above: Performed By: #### T SH #### [facility] [address] [place] [address] Dr. Zuly Aparicio Chloride [Moles/Vol] 106 mmol/L Normal 98-107 [facility] Comment on above: Performed By: #### T SH #### [facility] [address] [place] [address] Dr. Zuly Aparicio CO2 [Moles/Vol] 25.4 mmol/L Normal 21.0-32.0 [facility] Comment on above: Performed By: #### T SH #### [facility] [address] [address] [address] Zuly Aparicio Creatinine [Mass/Vol] 1.11 mg/dL Critically high 0.55-1.02 [facility] Comment on above: Performed By: #### T SH #### [facility] [address] [place] [address] Dr. Zuly Aparicio EGFR-AF IVORIAN >60 Normal >=60 [facility] Comment on above: Performed By: #### T SH #### [facility] [address] [place] [address] Dr. Zuly Aparicio EGFR-NON AF IVORIAN 57 mL/min/1.73m2 Critically low >=60 [facility] Comment on above: Performed By: #### T SH #### [facility] [address] [place] [address] Dr. Zuly Aparicio Globulin (S) [Mass/Vol] 3.5 g/dL Normal [facility] Comment on above: Performed By: #### T SH #### [facility] [address] [place] [address] Dr. Zuly Aparicio Glucose [Mass/Vol] 96 mg/dL Normal 74-106 [facility] Comment on above: Performed By: #### T SH #### [facility] [address] [place] [address] Dr. Zuly Aparicio Potassium [Moles/Vol] 3.5 mmol/L Normal 3.5-5.1 [facility] Comment on above: Performed By: #### T SH #### [facility] [address] [place] [address] Dr. Zuly Aparicio Protein [Mass/Vol] 7.4 g/dL Normal 6.4-8.2 [facility] Comment on above: Performed By: #### T SH #### [facility] [address] [place] [address] Dr. Zuly Aparicio Sodium [Moles/Vol] 140 mmol/L Normal 136-145 [facility] Comment on above: Performed By: #### T SH #### [facility] [address] [place] [address] Dr. Zuly Aparicio Urea nitrogen [Mass/Vol] 12.0 mg/dL Normal 7.0-18.0 [facility] Comment on above: Performed By: #### T SH #### [facility] [address] [place] [address] Dr. Zuly Aparicio Urea nitrogen/Creatinine [Mass ratio] 10.8 mg/mg Normal [facility] Comment on above: Performed By: #### T SH #### [facility] [address] [place] [address] Dr. Zuly Aparicio CBC AUTO DIFFon 12-20-2021 BASO # 0.0 103/ul Normal 0.0-0.1 [facility] Comment on above: Performed By: #### T SH #### [facility] [address] [place] [address] Dr. Zuly Aparicio Basophils/100 WBC (Bld) 0.1 % Critically low 0.2-2.0 [facility] Comment on above: Performed By: #### T SH #### [facility] [address] [place] [address] Dr. Zuly Aparicio EO # 0.1 103/ul Normal 0.0-0.7 [facility] Comment on above: Performed By: #### T SH #### [facility] [address] [place] [address] Dr. Zuly Aparicio Eosinophils/100 WBC (Bld) 1.1 % Normal 0.9-7.0 [facility] Comment on above: Performed By: #### T SH #### [facility] [address] [place] [address] Dr. Zuly Aparicio Erythrocyte distribution width (RBC) [Ratio] 15.9 % Critically high 11.0-15.0 [facility] Comment on above: Performed By: #### T SH #### [facility] [address] [place] [address] Dr. Zuly Aparicio Hematocrit (Bld) [Volume fraction] 35.2 % Critically low 36.0-48.0 [facility] Comment on above: Performed By: #### T SH #### [facility] [address] [place] [address] Dr. Zuly Aparicio Hemoglobin (Bld) [Mass/Vol] 10.9 g/dL Critically low 12.0-16.0 [facility] Comment on above: Performed By: #### T SH #### [facility] [address] [place] [address] Dr. Zuly Aparicio IG # 0.02 10e3/ul Normal 0.00-0.03 [facility] Comment on above: Performed By: #### T SH #### [facility] [address] [place] [address] Dr. Zuly Aparicio IG % 0.3 % Normal 0.0-0.5 [facility] Comment on above: Performed By: #### T SH #### [facility] [address] [place] [address] Dr. Zuly Aparicio LYMPH # 2.0 103/ul Normal 1.2-3.8 [facility] Comment on above: Performed By: #### T SH #### [facility] [address] [place] [address] Dr. Zuly Aparicio Lymphocytes/100 WBC (Bld) 28.0 % Normal 20.5-60.0 [facility] Comment on above: Performed By: #### T SH #### [facility] [address] [place] [address] Dr. Zuly Aparicio MANUAL DIFF REQ NO Normal [facility] Comment on above: Performed By: #### T SH #### [facility] [address] [place] [address] Dr. Zuly Aparicio MCH (RBC) [Entitic mass] 18.4 pg Critically low 26.7-34.0 [facility] Comment on above: Performed By: #### T SH #### [facility] [address] [place] [address] Dr. Zuly Aparicio MCHC (RBC) [Mass/Vol] 31.0 g/dL Normal 29.9-35.2 [facility] Comment on above: Performed By: #### T SH #### [facility] [address] [place] [address] Dr. Zuly Aparicio MCV (RBC) [Entitic vol] 59.3 fL Critically low 81.0-99.0 [facility] Comment on above: Performed By: #### T SH #### [facility] [address] [place] [address] Dr. Zuly Aparicio MONO # 0.4 103/ul Normal 0.3-0.8 [facility] Comment on above: Performed By: #### T SH #### [facility] [address] [place] [address] Dr. Zuly Aparicio Monocytes/100 WBC (Bld) 4.8 % Normal 1.7-12.0 [facility] Comment on above: Performed By: #### T SH #### [facility] [address] [place] [address] Dr. Zuly Aparicio NEUT # 4.7 103/ul Normal 1.4-6.5 [facility] Comment on above: Performed By: #### T SH #### [facility] [address] [place] [address] Dr. Zuly Aparicio Neutrophils/100 WBC (Bld) 65.7 % Normal 43.0-75.0 [facility] Comment on above: Performed By: #### T SH #### [facility] [address] [place] [address] Dr. Zuly Aparicio Platelet mean volume (Bld) [Entitic vol] 10.2 fL Normal 9.5-13.5 [facility] Comment on above: Performed By: #### T SH #### [facility] [address] [place] [address] Dr. Zuly Aparicio PLT 338 103/ul Normal 150-450 [facility] Comment on above: Performed By: #### T SH #### [facility] [address] [place], [place] [address] Dr. Zuly Aparicio RBC 5.94 106/ul Critically high 4.20-5.40 [facility] Comment on above: Performed By: #### T SH #### [facility] [address] [place], [place] [address] Dr. Zuly Aparicio WBC 7.2 103/ul Normal 4.0-11.0 [facility] Comment on above: Performed By: #### T SH #### [facility] [address] [place], [place] [address] HEAD WO CONon 12-20-2021 CT HEAD [...] LEROY PRETTY Date: 2021-12-20 21:04 Normal [facility] CULTURE URINEon 12-20-2021 CULTURE URINE Culture Observations : LIGHT GROWTH OF MIXED GENITAL JI. NO POTENTIAL PATHOGENS SEEN. Normal [facility] Comment on above: Performed By: #### U RCX ####[facility] [address] [place] [address]Dr. Zuly Aparicio ER URINE PROFILEon 2 Bilirubin Ql (U) Negative Normal NEGATIVE [facility] Comment on above: Performed By: #### TASHA ASHERICRO #### [facility] [address] [place] [address] [address] Zuly Aparicio Clarity (U) CLEAR Normal CLEAR [facility] Comment on above: Performed By: #### Roshan HOOPER UMICRO #### [facility] [address] [place] [address] Dr. Zuly Aparicio Color (U) LT. YELLOW Normal YELLOW [facility] Comment on above: Performed By: #### TASHA ASHERICRO #### [facility] [address] [place] [address] Dr. Zuly JUDD A micrscopic examination will be performed if indicated. Normal [facility] Comment on above: Performed By: #### TASHA ASHERICRO #### [facility] [address] [place] [address] Dr. Zuly Aparicio Glucose Ql (U) Negative Normal NEGATIVE [facility] Comment on above: Performed By: #### TASHA ASHERICRO #### [facility] [address] [place] [address] Dr. Zuly Aparicio Hemoglobin Ql (U) LARGE Abnormal NEGATIVE [facility] Comment on above: Performed By: #### Roshan HOOPER UMICRO #### [facility] [address] [place] [address] [address] Zuly Aparicio Ketones Ql (U) Negative Normal NEGATIVE [facility] Comment on above: Performed By: #### Roshan HOOPER UMICRO #### [facility] [address] [place] [address] Dr. Zuly Aparicio LEUKOCYTES Negative Normal NEGATIVE [facility] Comment on above: Performed By: #### Roshan HOOPER UMICRO #### [facility] [address] [place] [address] Dr. Zuly Aparicio Nitrite Ql (U) Negative Normal NEGATIVE [facility] Comment on above: Performed By: #### CHAYITO ASHERRO #### [facility] [address] [place] [address] Dr. Zuly Aparicio pH (U) 6.0 [pH] Normal 5-9 [facility] Comment on above: Performed By: #### CHAYITO ASHERRO #### [facility] [address] [place] [address] Dr. Zuly Aparicio SPEC GRAVITY 1.015 Normal 1.005-<=1.02 5 [facility] Comment on above: Performed By: #### CHAYITO ASHERRO #### [facility] [address] [place] [address] Dr. Zuly Aparicio UA PROTEIN Negative Normal NEGATIVE/ TRACE [facility] Comment on above: Performed By: #### CHAYITO ASHERRO #### [facility] [address] [place] [address] Dr. Zuly Aparicio UR MICRO IND INDICATED Normal [facility] Comment on above: Performed By: #### Roshan HOOPER FAVIOLARO #### [facility] [address] [place] [address] Dr. Zuly Aparicio Urobilinogen Qn (U) 1.0 {Isamar'U}/dL Normal 0.2 - 1. 0 [facility] Comment on above: Performed By: #### Roshan HOOPER FAVIOLARO #### [facility] [address] [place] [address] Dr. Zuly Aparicio PROF 14(COMP METB)on 022 Albumin [Mass/Vol] 4.1 g/dL Normal 3.4-5.0 [facility] Comment on above: Performed By: #### T SH #### [facility] [address] [place] [address] Dr. Zuly Aparicio Albumin/Globulin [Mass ratio] 1.1 {ratio} Normal [facility] Comment on above: Performed By: #### T SH #### [facility] [address] [place] [address] Dr. Zuly Aparicio ALP [Catalytic activity/Vol] 60 U/L Normal 46-116 [facility] Comment on above: Performed By: #### T SH #### [facility] [address] [place] [address] [address] Zuly Aparicio ALT [Catalytic activity/Vol] 52 U/L Normal 14-59 [facility] Comment on above: Performed By: #### T SH #### [facility] [address] [place] [address] Dr. Zuly Aparicio Anion gap [Moles/Vol] 11.4 mmol/L Normal Th [facility] Comment on above: Performed By: #### T SH #### [facility] [address] [place] [address] Dr. Zuly Aparicio AST [Catalytic activity/Vol] 25 U/L Normal 15-37 [facility] Comment on above: Performed By: #### T SH #### [facility] [address] [place] [address] Dr. Zuly Aparicio Bilirubin [Mass/Vol] 0.4 mg/dL Normal 0.2-1.0 [facility] Comment on above: Performed By: #### T SH #### [facility] [address] [place] [address] Dr. Zuly Aparicio Calcium [Mass/Vol] 8.7 mg/dL Normal 8.5-10.1 [facility] Comment on above: Performed By: #### T SH #### [facility] [address] [place] [address] Dr. Zuly Aparicio Chloride [Moles/Vol] 105 mmol/L Normal 98-107 [facility] Comment on above: Performed By: #### T SH #### [facility] [address] [place] [address] Dr. Zuly Aparicio CO2 [Moles/Vol] 26.3 mmol/L Normal 21.0-32.0 [facility] Comment on above: Performed By: #### T SH #### [facility] [address] [place] [address] Dr. Zuly Aparicio Creatinine [Mass/Vol] 1.06 mg/dL Critically high 0.55-1.02 [facility] Comment on above: Performed By: #### T SH #### [facility] [address] [place] [address] [address] Zuly Aparicio EGFR-AF IVORIAN >60 Normal >=[address] [facility] Comment on above: Performed By: #### T SH #### [facility] [address] [place] [address] [address] Zuly Aparicio EGFR-NON AF IVORIAN =60 Normal >=60 [facility] Comment on above: Performed By: #### T SH #### [facility] [address] [place] [address] [address] Zuly Aparicio Globulin (S) [Mass/Vol] 3.6 g/dL Normal [facility] Comment on above: Performed By: #### T SH #### [facility] [address] [place] [address] Dr. Zuly Aparicio Glucose [Mass/Vol] 99 mg/dL Normal 74-106 [facility] Comment on above: Performed By: #### T SH #### [facility] [address] [place] [address] [address] Zuly Aparicio Potassium [Moles/Vol] 3.7 mmol/L Normal 3.5-5.1 [facility] Comment on above: Performed By: #### T SH #### [facility] [address] [place] [address] Dr. Zuly Aparicio Protein [Mass/Vol] 7.7 g/dL Normal 6.4-8.2 [facility] Comment on above: Performed By: #### T SH #### [facility] [address] [place] [address] Dr. Zuly Aparicio Sodium [Moles/Vol] 139 mmol/L Normal 136-145 [facility] Comment on above: Performed By: #### T SH #### [facility] [address] [place] [address] Dr. Zuly Aparicio Urea nitrogen [Mass/Vol] 17.0 mg/dL Normal 7.0-18.0 [facility] Comment on above: Performed By: #### T SH #### [facility] [address] [place] [address] Dr. Zuly Aparicio Urea nitrogen/Creatinine [Mass ratio] 16.0 mg/mg Normal [facility] Comment on above: Performed By: #### T SH #### [facility] [address] [place] [address] Dr. Zuly Aparicio TSHon 12-20-2021 TSH 3.279 uIU/mL Normal 0.358-3.740 [facility] Comment on above: Performed By: #### T SH #### [facility] [address] [place] [address] Dr. Zuly Aparicio URINE MICROSCOPIC ONLYon BACTERIA SMALL Abnormal NONE SEEN [facility] Comment on above: Performed By: #### Roshan HOOPER UMICRO #### [facility] [address] [place] [address] Dr. Zuly Aparicio Bacteria identified Cx Nom (U) INDICATED Normal [facility] Comment on above: Performed By: #### Roshan HOOPER UMICRO #### [facility] [address] [place] [address] Dr. Zuly Aparicio CAST NONE SEEN Normal NONE SEEN [facility] Comment on above: Performed By: #### Roshan HOOPER UMICRO #### [facility] [address] [place] [address] Dr. Zuly Aparicio Crystals LM Nom (Urine sed) NONE SEEN Normal NONE SEEN [facility] Comment on above: Performed By: #### Roshan HOOPER UMICRO #### [facility] [address] [place] [address] Dr. Zuly Aparicio Epithelial cells LM Ql (Urine sed) MANY Abnormal NONE SEEN /RARE [facility] Comment on above: Performed By: #### Roshan HOOPER UMICRO #### [facility] [address] [place] [address] Dr. Zuly Aparicio MUCOUS NONE SEEN Normal NONE SEEN [facility] Comment on above: Performed By: #### Roshan HOOPER UMICRO #### [facility] [address] [place] [address] Dr. Zuly Aparicio RBC 0-2 Normal 0-2 [facility] Comment on above: Performed By: #### JEFERSON ASHER #### [facility] [address] [place], [place] [address] Dr. Zuly Aparicio WBC 2-5 Abnormal NONE SEEN [facility] Comment on above: Performed By: #### JEFERSON ASHER #### [facility] [address] [place], [place] [address] Dr. Zuly Aparicio XR CHEST 1 Von [...] LUDY GARCIA Date: 2021-12-20 21:21 Normal [facility] Coding Summary.on 12-13-2021 Coding Summary. CD:[id number] G h0bWw+PGhlYWQ+QC0JPNX pS62acCYlrO8GC6uBIX7G NSFSMFUGAR6CSC2zcLK9O EznX6EatcHl WpfqlDGuHA33LXs2UCG0c XylZTqrcS3hqMPsY3p7Ea OmBY47iB41WRjdLEMuBkH 3LjZpbjsgbWFy A1rvFyQwcZFwFkj+PHRhY mxlIHdpZHRoPScxMDAlJy HdeYaoSH4fAa2wWRNbJHR vbGxhcHNlOiBj p5jbQQBjLIntAT9jdXzlC 9OasHV9YVSus3d2Vz49tJ I+LDQxYGD3rObrYIlbc47 1ExQsy6xrTXR9 qBFwBCyuDCG1F33gk8S1J UInVUDwYBE0sDH9gZ1ytA eurrfvC5AgfQKiZzX9HNU 6eWWnqF1qaAjp rlhdpZ0kDno+U93EDK9WA CSZAS4IGpt4A6LqAnupvT I+CV24AFZuME36oVEdgZF ce9uwzZf5UvLg BPPmHLF7yWewUCreq4WjO NTfG37lkCIwo4G8OGDtzP ikvAEhKxIvyLN3wS0hLCc wuyhmy3mznwhc Hcbwz6vjbz13kI38F71zH QpwUTLxVPT4BICtIAEodX haeo1skP0yBs7+YMpno7w go5iywLy4JcFw XXNwnzEfcYwwYRI2n4DqY j23Y4FtlNuhm6MsGep8zr 88eRTka1T7gAM3WJvcTPV ipI6kZWrmExB5 TXDsEyTzvT51zRZqWRgnS d8znXopnXtxWN8bOILyne jvOABmyL6yAOVzzVJujDp rMI2gIDBivabf k249JpKzAQC5MZFswXPpR 2PimF4cAtKsYEXoGLQxN4 GhoXUuQOdyP195WUsvBrU 3EDGvlmIoX1Hq HWHqxLrqJwX3o9C4Kp7Ly 0QmgheuBTU3IEaaDSR9Uf LpCbMfXkP0B7UqZaq2UJH qrWuqMR1dJ8Mu LOYohrdzjulhyRR0LFOcW SZreL11wXAbCMhfJy4hw4 V5a173XUHcMAJmjX95Zk3 udDogMTBwdCBU yR2vnsaee4utreodYkNkB DIcMHj4TIl6YLXxiFoqCg PkAWQ2VmX7OHX4xYNsrZ0 dgXbtyojroH8c Oyc+N83pqX4zZXT1UYE2c eauZVQqvpCxGQ40QX80W4 RyPjwvdGFibGU+PGRpdiB rpWkwCG7rFmVd e9kqh7LaOJkfM6LiTMWsQ ZomHat1PGGxABM1oBR2zU 6vHMPoCRdis7D3oFA3P4P jytGpii9gw1os SWPeBEwjK56qoMPmx7Q3F RXifMO5WAVjzDrwWtTqeY 93Oyc+OFZafWhpm7BgAyg fp5jgh6hzrEw3 AiRjMSGaejXkpAgsPXT7y 4MjMw20L77dEWoqFEPrIR UzORDgKOPlrHnzzk7ijL6 wIi8+PGNvbCB3 mOF5eD7pYTCiLcM0DHnsE 632ZzZtiRKsBqxeb0odj8 ditYg2YpFuYJZqzwUomNo pQEH1d8AsMa41 H91hJMbuEVJdNIYdXBOiC ONvsLjsvq3wbL6vSe4+PC 6mt2blwr60aH87yYH+PHR iCOS9hQzlRNke BXSbeP9mDJtbBgZ0YNRrG uQynB25tUQiZMcsMy5bmI hrxZczRY7kYMLphqsvn03 8KyLgs2bwMXFc vXTwTUzgKUO2T19is9E2M KLwJDMlULS1fZS7yL5wgT lnbjogbGVmdDsgdmVydGl tZVrnROltR156 IHRvcDsnPlBhdGllbnQgT xXtGFb5P3GqApb2VLVswD lfOB9tzJVxYCqcCi7nqRy zrBngLR4yNCFw fdcfa833PsBgt9oyEQPyd DTdYSwhTNJ5Y22pn1D8HI ZsMNOfLHL2oTK4nC8jtSw nbjogbGVmdDsg jnFvpSfhMZylMRafJ147R HRvcDsnPkJpcnRoIERhdG N8FD02RU64aHEta7W2gNW 1B1LcTZYznywj qpdaaFR0NPTnFGFwhD97Z l0vfHgkVz8dISAfCNJ1SG DakQInE0BndL9nXqMxFWQ zJEMyN6QbqMVo NEeeN075GFgpGyT5JTEsk bJxW6WeTJVmyUahGpO2f9 F3Wl5QO4N6KJ31RF27fMT vk0F0wBQ0P7Jt NZKcqzegbsvbmZI2CFDsG DExyU48Oo7beGsxRt9zRN ArZPF5COGhqCNgK7HtjZ8 yOiAjMDAwMDAw J1UdcJPyFWxnQ553VJhrU rD3VOXvytEsR3TsGCBqzR khMxV1u4H3Wm5YMBe7WJ5 4NL25pRPrm3R5 xIU5V5PxTOCtjqwhppfwy CW1QPKqBMOveP52Om9xkH xqIl6uOFTeDIL0LBQhxEZ tO9WumT4zKgFx JTLhVQHiA7XvnHDwQRntS 177VBvzDmF9VDEsiqImB1 UbDNTvcZsgQgE2g3Q6Mj2 EZGEkXU18WKX6 yIU1UG11MX27T8PfNssws GFibGU+PHRhYmxlIHdpZH RoPScxMDAlJyBzdHlsZT0 qMq2eZKPxTACp eVkfiYTuZuNyp5qsESCdA RayZL7rdVhcJ6FozSB3QX Udk5y6Bb41W62oL2YluHP +BOKlaEV2cNB0 rL7mOlZePyJ7CJsiL907U qLvhAQoUlkcp9dzf5bvcT l0RqT6LCJddpAltSktLTM 8j3DtRl76A25w IHdpZHRoPSIxNSUiIHZhb Kvioy7jxJ3nFw5+PGNvbC H1bIB2xF5cLxQtKnU5QMt hA996GeFreIFi Ojqpr2spk4vzjOl1PjCnR CQrseBfmIjqRFQ6u6BnPf 92Z6HvyWcqi7YfKsv5oe4 6nGAza4E6vJP0 I7KyDSWmkiryaAOimZdfF F0zOPCrchnzKAMbaT0oFM FuU2o8LdBrKjQ7MKylF5P iphW7DCRkxPIp RCpmDTE1V57gm8I0PQRlQ YDzBOC1oPR3kW8okSfeax ogbGVmdDsgdmVydGljYWw eUPoxW225BSHv pAycYPHnbD2zZIMevWEvh RsnSM8lWYYhifttWysOEk RTRVksIENIRUxTRVkgUjw vdGQ+PHRkIHN0 aLoqSJzgIXZcqO9vHKSdX 5o3PfJbBsT4ZExvQ2LbLH PsyhayYu42eW7mNxSmLsN 9EHifQ1PdozV3 AIDziKNsDFrdYLT0V07vl 0F9QWAbEVCtHVC7fRG9xN 1hbGlnbjogbGVmdDsgdmV ydGljYWwtYWxp Y748FZNuvHtpYkQvLqH9X lS5BJQ1X3OgHoj3TZMpdK qgQT3seOTwYKctLk3tpQk ztYafNU5eJAOl uoiwOLLqvL2yLGXbkTAbf CjgCH9xBKQupordu244Qc RdELE5NYPcwZTuC2CguG0 yOiAjMDAwMDAw M8RzjDMqAWztI611NBzuY hS8SPFxxtHoR4GjCQZdbP tdBxT1y4Z2Ka2yKyPHYQS yczwvdGQ+PHRk VOB5sVatGKpxYYXrhQ8zN XMhU3f7LcUuIfE6HSanT2 FvIUYqngauIh50uA0xXyU mGuR6GXadK1Uo bqN4CODbeXEwALadCQX0J 33js1K2ENWoDFYjPAK3zB I9cI5tqPxxjtbriVUcbTo gdmVydGljYWwt NAclX470ITWnbYwpPqMjl WFsZTwvdGQ+ABLcTLY8xH vdBXkeCEIhrK9kHBCkD8w 1SfMoFbB8EQdi S6UpBCLwglybYk71iK5iR vGjEaS1SHudS4DqwkM6OQ EdbBHtVAbrDWU5G08uy8G 4SVQtTGMpXKN2 zLX2qM3cxAxyzbiagPQkh DsgdmVydGljYWwtYWxpZ2 21YJGluEyxEkGpOUAsGI0 jeTwvdGQ+PC90 xo24B0PmGtrsOda0KVJsH PG3uFL4mH2vASXiKQeqo4 C7qUA5H7OatxVlnw5da5d tMQUiPDwqO12i fTHlh8P4WECvfVZ4QPQse JerKrCtiR14Wkx+PGNvbG zcc5HhFpwvr7cyn2vifQm 9IjMwJSIgdmFs fDgoCZM5z4HvHr20Z28vX HdpZHRoPSIzMCUiIHZhbG wuzi1dqN8bIx3+PGNvbCB 3dQL3nT8fEgIe BlU6UKiuZ858OsWxyZFcW yvrt0zcl6tncBz2NcOqES CofrWwmIioWZS1t6QuOy6 9A2IzlQliq6Kn Nve9nn86pWGnt9H8yPV7C 3BhZGRpbmctbGVmdDogMC 1rVOIzkyssDOUhhC0gBVZ kM8z8FfIdFqH6 WHroM5UvueL2DOIjeBOvK WXsaOQIeW0egdumo5lsxp zcVlEhBYEkKJn5VCd3DCZ saWduOiBsZWZ0 EtW1EEL9rQQsqB4cmVwfh bqenH4kUwr+FDe8a8zxiE KtUY8cbTU6JT77RX20wBK wg4Z5kRU8B6Mc DFGlxbfrkreqaJA7YYVvQ VMnuC56Iy6hwBobTt6zOO LlCUU8FBRdcDLkU1VwwV6 yOiAjMDAwMDAw A9KnoMFnOKpsA322FKotI qT6OXOuiiPrB9WiVVSiwH bcJbH8v2H7As8GLN76NP3 7IU95oXXeu8I4 cGY3B5TlZUEqosouqcwhc CD9ONUaPKPzsJ31Ah1aqA miZg9zZAJcAVG3FSAfeVR pD5SrpE4sUiMu LQMaUJIyH1VrzKToXAlgZ 237OPmfJyF2IDSaulArA2 XbILClbPwxZwP9m3S0Eq5 QBn07TH99RL69 jYEjc1J6cCR5K4XgVEOpa tecfxhfnRM9GHXjOGKqhY 92Wl1eaXrxMj1qYFWkKJJ 7BIAyhNHrL3Ce xA9pArNcDFFsERVfS2Abl XYyOTebR101WCqcXlK7HR KwelDmU6TdRPJabZnyIzK 4j1D5Ky8SSFsr ynu8Z7IpXtkovIW+PC90Y IDmCL09kZOquWPcn8xqnV m4AjMkBKIlWGH9tGthLOf kn0ClRSVzZ48b bGFw (more content not included)... Normal [facility] Path. Reviewon 12-11-2021 Path Review Microcytic and hypochromic anemia. Clinical correlation and iron studies are recommended to determine etiology as clinically indicated. Invalid Interpretation Code [facility] Comment on above: Order Comment: Order Added by Discern Expert. Performed By: #### 2 [id number], [id number], [id number], [id number], [id number], [id number] #### [facility] [address] [place] [address] Auto Diffon 12-10-2021 Basophils/100 WBC (Bld) 0.2 % Normal 0.0-2.0 [facility] Comment on above: Order Comment: Order Added by Discern Expert. Performed By: #### 2 [id number], [id number], [id number], [id number], [id number], [id number] #### [facility] [address] [place] [address] Basophils/Leukocytes Auto (Bld) [Pure # fraction] 0.0 E9/L Normal 0.0-0.2 [facility] Comment on above: Order Comment: Order Added by Discern Expert. Performed By: #### 2 [id number], [id number], [id number], [id number], [id number], [id number] #### [facility] [address] [place] [address] Eosinophils/100 WBC (Bld) 1.3 % Normal 0.0-8.0 [facility] Comment on above: Order Comment: Order Added by Discern Expert. Performed By: #### 2 [id number], [id number], [id number], [id number], [id number], [id number], [id number] #### [facility] [address] [place] [address] Eosinophils/Leukocyte s Auto (Bld) [Pure # fraction] 0.1 E9/L Normal 0.0-0.5 [facility] Comment on above: Order Comment: Order Added by Discern Expert. Performed By: #### 2 [id number], [id number], [id number], [id number], [id number], [id number], [id number] #### [facility] [address] [place] [address] 21655 Lymphocytes/100 WBC (Bld) 30.3 % Normal 14.0-50.0 [facility] Comment on above: Order Comment: Order Added by Discern Expert. Performed By: #### 2 [id number], [id number], [id number], [id number], [id number], [id number], [id number] #### [facility] [address] [place] [address] 59829 Lymphocytes/Leukocyte s Auto (Bld) [Pure # fraction] 2.1 E9/L Normal 1.0-4.0 [facility] Comment on above: Order Comment: Order Added by Discern Expert. Performed By: #### 2 [id number], [id number], [id number], [id number], [id number], [id number], [id number] #### [facility] [address] [place] [address] Monocytes/100 WBC (Bld) 6.2 % Normal 4.0-14.0 [facility] Comment on above: Order Comment: Order Added by Discern Expert. Performed By: #### 2 509205, [id number], [id number], 8558160, [id number], [id number], [id number] #### [facility] [address] [place] [address] Monocytes/Leukocytes Auto (Bld) [Pure # fraction] 0.4 E9/L Normal 0.2-1.0 [facility] Comment on above: Order Comment: Order Added by Discern Expert. Performed By: #### 2 [id number], [id number], [id number], 3423583, 69996151, 48390655, [id number] #### [facility] [address] [place] [address] Neutrophils/100 WBC (Bld) 62.0 % Normal 36.0-75.0 [facility] Comment on above: Order Comment: Order Added by Discern Expert. Performed By: #### 2 342666, [id number], 31281569, 7860457, [id number], 91482806, [id number] #### [facility] [address] [place] [address] 46571 Neutrophils/Leukocyte s Auto (Bld) [Pure # fraction] 4.3 E9/L Normal 2.0-7.5 [facility] Comment on above: Order Comment: Order Added by Discern Expert. Performed By: #### 2 [id number], [id number], [id number], 9047904, 81111919, [id number], [id number] #### [facility] [address] [place] [address] BMPon 12-10-2021 Creatinine [Mass/Vol] 1.0 mg/dL Normal 0.5-1.3 [facility] Comment on above: Performed By: #### 2 060584, [id number], [id number], 8388813, 50849754, [id number], [id number] #### [facility] [address] [place] [address] Urea nitrogen [Mass/Vol] 17 mg/dL Normal 5-21 [facility] Comment on above: Performed By: #### 2 793004, 14663348, 14360126, 6181501, 61980418, 24186632, 2789132 #### [facility] [address] [place] [address] Urea nitrogen/Creatinine [Mass ratio] 17 No Units Normal 10-20 [facility] Comment on above: Performed By: #### 2 239697, 82785524, 70902836, 7876832, 39791832, 94964074, 3683488 #### [facility] [address] [place] [address] Anion gap [Moles/Vol] 13 mmol/L Normal 6-16 [facility] Comment on above: Performed By: #### 2 245990, 93635992, 77253210, 3981723, 28082958, 39087079, 2396204 #### [facility] [address] [place] [address] Calcium [Mass/Vol] 9.2 mg/dL Normal 8.9-11.1 [facility] Comment on above: Performed By: #### 2 492716, 02082582, 31341731, 5660173, 70017760, 41357225, 8537303 #### [facility] [address] [place] [address] Chloride [Moles/Vol] 106 mmol/L Normal 101-111 [facility] Comment on above: Performed By: #### 2 376566, 38947169, 77540571, 5782487, 25067845, 30218085, 9929157 #### [facility] [address] [place] [address] CO2 [Moles/Vol] 22 mmol/L Normal 21-31 [facility] Comment on above: Performed By: #### 2 576300, 41305439, 52947284, 2170765, 67235109, 68604755, 9375231 #### [facility] [address] [place] [address] Glucose [Mass/Vol] 96 mg/dL Normal 55-199 [facility] Comment on above: Result Comment: If t his glucose result represents a fasting glucose, interpretation should refer to the following reference range: 55-99 mg/dL Performed By: #### 2 033690, 67902609, 43334435, 6754550, 83438778, 33814760, 5204974 #### [facility] [address] [place] [address] Potassium [Moles/Vol] 4.2 mmol/L Normal 3.5-5.3 [facility] Comment on above: Performed By: #### 2 117802, 49370417, 01422222, 4505829, 67195654, 86545997, 4445772 #### [facility] [address] [place] [address] Sodium [Moles/Vol] 137 mmol/L Normal 135-145 [facility] Comment on above: Performed By: #### 2 890793, 57710511, 25902946, 1558659, 95410100, 99769435, 0282171 #### [facility] [address] [place] [address] CBC w/ Auto Diffon 2 Erythrocyte distribution width (RBC) [Ratio] 15.4 % High 10.9-14.2 [facility] Comment on above: Performed By: #### 2 241068, 19498356, 75025197, 5178309, 96910377, 32721950, 6540694 #### [facility] [address] [place] [address] Hematocrit (Bld) [Volume fraction] 34.9 % Normal 34.0-46.0 [facility] Comment on above: Performed By: #### 2 016270, 20798227, 27575845, 2050606, 81079572, 90931318, 1591652 #### [facility] [address] [place] [address] Hemoglobin (Bld) [Mass/Vol] 11.0 g/dL Low 12.0-16.0 [facility] Comment on above: Performed By: #### 2 554788, 03942834, 38494632, 7037256, 02385039, 68767052, 8691795 #### [facility] [address] [place] [address] MCH (RBC) [Entitic mass] 17.7 pg Low 27.0-34.0 [facility] Comment on above: Performed By: #### 2 306066, 86051829, 63451135, 0281454, 67358135, 15995049, 5731086 #### [facility] [address] [address] MCHC (RBC) [Mass/Vol] 31.6 g/dL Normal 31.4-36.0 [facility] Comment on above: Performed By: #### 2 584790, 19544745, 50312291, 7588802, 20123396, 45620501, 8237686 #### [facility] [address] [place] [address] MCV (RBC) [Entitic vol] 56.1 fL Low 80.0-100.0 [facility] Comment on above: Performed By: #### 2 703228, 14451470, 24138737, 0864313, 51897843, 20436066, 4989482 #### [facility] [address] [place] [address] Platelet mean volume (Bld) [Entitic vol] 8.9 fL Normal 6.4-10.8 [facility] Comment on above: Performed By: #### 2 735755, 06304838, 08611211, 3080139, 10672857, 21916330, 0278646 #### [facility] [address] [place] [address] Platelets (Bld) [#/Vol] 281.0 E9/L Normal 150.0-500.0 [facility] Comment on above: Performed By: #### 2 110070, 33747128, 37593583, 0568171, 63522567, 64336565, 6689918 #### [facility] [address] [place] [address] RBC (Bld) [#/Vol] 6.2 E12/L High 4.3-5.9 [facility] Comment on above: Performed By: #### 2 903175, 34434232, 25084611, 7794530, 03225736, 91700090, 7491171 #### [facility] [address] [place] [address] WBC corrected for nucl RBC Auto (Bld) [#/Vol] 6.9 E9/L Normal 4.0-11.0 [facility] Comment on above: Performed By: #### 2 664020, 20483141, 64628406, 3444652, 20665974, 80104498, 9599156 #### [facility] [address] [place] [address] CHEMISTRYOrdered By: SYSTEM SYSTEM on 12-10-2021 Anion [...] rate/Area] mL/min/1.73 m2 Normal >=59mL/min/1 .73 m2 [facility] [place] S GFR/1.73 sq M.predicted among non-blacks MDRD (S/P/Bld) [Vol rate/Area] mL/min/1.73 m2 Normal >=59mL/min/1 .73 m2 [facility] [place] Chem S Glucose [Mass/Vol] 96 mg/dL Normal 55 - 199 mg/dL [facility] Remisol Potassium [Moles/Vol] 4.2 mmol/L Normal 3.5 - 5.3 mmol/L [facility] Remisol Sodium [Moles/Vol] 137 mmol/L Normal 135 - 145 mmol/L [facility] [place] Remisol Troponin I.cardiac [Mass/Vol] pg/mL Low 10.10 - 27.10 pg/mL [facility] [place] Remisol Urea nitrogen [Mass/Vol] 17 mg/dL Normal 5 - 21 mg/dL [facility] Remisol Urea nitrogen/Creatinine [Mass ratio] 17 mg/mg Normal 10 - 20 [facility] Remisol Consent for Treatmenton 11-24 Consent for Treatment [id number]:127 Normal [facility] Discharge Instructionson Discharge Instructions [id number] .[id number]:127 Normal [facility] ED Clinical Summaryon 2021 ED Clinical Summary [address] [address] ED Clinical Summary Person Information Name: TORIE JOHNSTON [facility] Age: 31 Years : 1990 Sex: Female Language: Vietnamese PCP: YAMILE GARCIA CNP Marital Status: Visit [...] 03:49:35 12/10/2021 03:49:35 12/10/2021 03:49:35 ADDRESS: [address] [facility] [id number] [facility] DOC NOTES: MEDICAL INFORMATION: Prescriptions Given: New [...] With: Address: When: YAMILE GARCIA [address] [facility], [place], [place] [phone] Business (1) In 3 days 12/13/2021 Comments: Return to the emergency room if your vertigo recurs or any new symptoms DIAGNOSIS: 1:Vertigo; 2:Leg pain Normal [facility] ED Note-Nursingon 12-10-2021 ED Note-Nursing pt given d/c instructions and educated on importance of follow up. pt educated on new medications. pt verbalized understanding of instructions and readiness for d/c. pt walked self ambulatory to waiting room in stable condition Normal [facility] ED Note-Physicianon 12-11-19 ED Note-Physician Basic [...] meclizine 12.5 mg Tab, 25 mg, Oral [id number] [F], 1000 mL, IV Phenergan 25 mg/mL Injection, 12.5 mg, IV Push Disposition Plan Patient Discharge Condition Stable, improved Discharge Disposition Discharged home Discharge Prescription List Prescriptions meclizine 25 mg Tab, 25 mg= 1 tab(s), Oral, TID Zofran ODT 4 mg Tab-Dis, 4 mg= 1 tab(s), Oral, q6hr, PRN Follow-up With When Contact Information YAMILE GARCIA In 3 days 12/13/20[address] EDT [address] [place] [address] [phone] Business (1) Additional Instructions: Return to the [...] 00:31:00) Hct: (more content not included)... Normal [facility] Comment on above: Result Comment: Elec [...] you feel dizzy. General instructions ? Take gjpz-zji-vqpxhrw and prescription medicines only as told by [...] 02/20/2006 Document Revised: 04/06/2019 Document Reviewed: 04/06/2019 Easy [employer] Online Patient Education ? 2019 [employer]. Normal [facility] ED Patient Summaryon 022 ED Patient Summary [place] [address] Patient Discharge Instructions Person Information Name: TORIE JOHNSTON Age: 31 Years Arrival Date: 12/09/2021 22:22:45 Discharge Diagnosis: 1:Vertigo; 2:Leg pain Primary Care Physician: YAMILE GARCIA CNP Provider Information Primary Provider: Miguel Kamara M.D. Advanced Oral And Maxillofacial Surgery:None The exam and treatment you received in the Emergency Department were for an urgent problem and are not intended as complete care. It is important that you follow up with a doctor, nurse practitioner, or physician?s project assistant for ongoing care. If your symptoms [...] Address: When: YAMILE GARCIA [address] [facility], [place], [place] [phone] Business (1) In 3 days 12/13/2021 Comments: [...] opioids can be used to help relieve nucwfgwd-rd-drputg pain and are often prescribed following a [...] be struggling with addiction, tell your health director of managed care and ask f (more content not included)... Normal [facility] HEMATOLOGYOrdered By: Serg Goodson on 12-10-2021 [...] Ql (Bld) Present (12/10/21 12:31 AM) Normal [facility] [place] [place] HemeManSS Polychromasia LM Ql (Bld) Present (12/10/21 12:31 AM) Normal [facility] HemeManSS RBC (Bld) [#/Vol] 6.2 E12/L High 4.3 - 5.9 E12/L [facility] HemeAutoSS Teardrop Cell Present (12/10/21 12:31 AM) Normal [facility] HemeManSS WBC corrected for nucl RBC Auto [...] 4.3 E9/L Normal 2.0 - 7.5 E9/L [facility] HemeAutoSS Morphon 12-10-2021 Anisocytosis Ql (Bld) Present Normal [facility] Comment on above: Order Comment: Order Added by Discern Expert. Performed By: #### 2 406882, 97195074, 07933687, 8607427, 16274538, 84411398, 2808668 #### [facility] [address] [place] [address] Elliptocytes LM Ql (Bld) Present Normal [facility] Comment on above: Order Comment: Order Added by Discern Expert. Performed By: #### 2 870416, 92737607, 70257210, 9242626, 82010089, 35872823, 2655245 #### [facility] [address] [place] [address] Hypochromia Auto Ql (Bld) Present Normal [facility] Comment on above: Order Comment: Order Added by Discern Expert. Performed By: #### 2 746437, 76328531, 24065401, 2549762, 79712751, 58960112, 3614974 #### [facility] [address] [place] [address] Morphology Rey (Bld) [Interp] See Morphology Normal [facility] Comment on above: Order Comment: Order Added by Discern Expert. Performed By: #### 2 281638, 41396890, 90029877, 5194582, 07976114, 27021397, 4869908 #### [facility] [address] [place] [address] Poikilocytosis Auto Ql (Bld) Present Normal [facility] Comment on above: Order Comment: Order Added by Discern Expert. Performed By: #### 2 437029, 36093208, 41602743, 1954406, 24979944, 99516270, 9811453 #### [facility] [address] [place] [address] Polychromasia LM Ql (Bld) Present Normal [facility] Comment on above: Order Comment: Order Added by Discern Expert. Performed By: #### 2 476725, 32170991, 04136539, 6097722, 29270328, 04142216, 4230217 #### [facility] [address] [place] [address] Teardrop Cell Present Normal [facility] Comment on above: Order Comment: Order Added by Discern Expert. Performed By: #### 2 631675, 57525229, 91542852, 1844053, 34942392, 90382061, 0668731 #### [facility] [address] [place] [address] SEROLOGYOrdered By: Serg hope on 12-10-2021 HCG.beta subunit (U) [Moles/Vol] Negative Normal [facility] Man Sero Troponin 0 Hr.on 12-10-2021 Troponin I.cardiac [Mass/Vol] ng/mL Low 10.10-27.10 [facility] Comment on above: Result Comment: The 95% CI (Confidence Interval) PPV (Positive Predictive Value) for myocardial infarction in females is 38 pg/mL, in males 51 pg/mL. The results should be used in conjunction with clinical conditions of myocardial infarction. (Access High Sensitivity Troponin I Instructions For Use, Mili [place], December 2017) Performed By: #### 2 267839, 34754743, 74124193, 5814514, 16643978, 72155933, 4333919 #### [facility] [address] [place] [address] U BetaHcg Qualon 12-10-2021 HCG.beta subunit (U) [Moles/Vol] Negative Normal [facility] Comment on above: Performed By: #### 2 9429727, 77133433 ####[facility] [address] [place] [address] UA With Cult Reflexon 2021 Bilirubin Ql (U) Negative Normal Negative [facility] Comment on above: Performed By: #### 2 9673151, 75914725 #### [facility] [address] [place] [address] Clarity (U) CLEAR Normal Clear [facility] Comment on above: Performed By: #### 2 4097451, 09230094 #### [facility] [address] [place] [address] Color (U) YELLOW Normal Yellow [facility] Comment on above: Performed By: #### 2 5728951, 48849081 #### [facility] [address] [place] [address] Epithelial cells.squamous LM.HPF (Urine sed) [#/Area] 0-2 Normal 0-2 [facility] Comment on above: Performed By: #### 2 1386590, 60852988 #### [facility] [address] [place] [address] Glucose Test strip (U) [Mass/Vol] Negative Normal Negative [facility] Comment on above: Performed By: #### 2 8562604, 17840195 #### [facility] [address] [place] [address] Hemoglobin Ql (U) Negative Normal Negative [facility] Comment on above: Performed By: #### 2 1291477, 61856031 #### [facility] [address] [place] [address] Ketones (U) [Mass/Vol] Negative Normal Negative [facility] Comment on above: Performed By: #### 2 0152069, 75035157 #### [facility] [address] [place] [address] [place].plasma/Lithiu m.RBC (Bld) [Mass ratio] 0-3 Normal 0-3 [facility] Comment on above: Performed By: #### 2 4297975, 48112949 #### [facility] [address] [place] [address] Nitrite Ql (U) Negative Normal Negative [facility] Comment on above: Performed By: #### 2 3996917, 64747365 #### [facility] [address] [place] [address] pH (U) 6.0 [pH] Invalid Interpretation Code 5.0-9.0 [facility] Comment on above: Performed By: #### 2 7395117, 29555614 #### [facility] [address] [place] [address] Protein (U) [Mass/Vol] Negative Normal Negative [facility] Comment on above: Performed By: #### 2 4540941, 22618346 #### [facility] Laboratory [address] [place] [address] Specific gravity (U) [Rel density] 1.025 Invalid Interpretation Code 1.005-1.030 [facility] Comment on above: Performed By: #### 2 1911780, 29653679 #### [facility] [address] [place] [address] Type of Urine collection method Clean Catch Normal [facility] Comment on above: Performed By: #### 2 6314345, 50679623 #### [facility] [address] [place] [address] Urobilinogen Qn (U) 0.2 {Isamar'U}/dL Normal 0.0-1.0 [facility] Comment on above: Performed By: #### 2 6801864, 27377971 #### [facility] [address] [place] [address] WBC Auto Ql (U) Negative Normal Negative [facility] Comment on above: Performed By: #### 2 4222181, 24298791 #### [facility] [address] [place] [address] WBC LM.HPF (Urine sed) [#/Area] 0-5 Normal 0-5 [facility] Comment on above: Performed By: #### 2 8891621, 93782833 #### [facility] [address] [place] [address] URINALYSISOrdered By: Serg Goodson on 12-10-2021 Bilirubin [...] AM) Normal Negative [facility] UA Auto SS [place].plasma/Lithiu m.RBC (Bld) [Mass ratio] 0-3 /HPF Normal [...] [facility] UA Auto SS Urobilinogen Qn (U) 0.7697154 {Isamar'U}/dL Normal 0.0 - 1.0 EU/dL [facility] [...] M.D. Transcribed by: FABI Technologist: MARKO Ornelas [facility] eGFRon 12-10-2021 GFR/1.73 sq M.predicted among blacks MDRD (S/P/Bld) [Vol rate/Area] mL/min/{1.73_m2} Normal >=59 [facility] Comment on above: Order Comment: Order added by Discern Expert. Result Comment: eGFR is race adjusted. AA=. Performed By: #### 2 701219, 82382668, 06684350, 8972901, 98363276, 29279767, 5480327 #### [facility] [address] [place] [address] GFR/1.73 sq M.predicted among non-blacks MDRD (S/P/Bld) [Vol rate/Area] mL/min/{1.73_m2} Normal >=59 [facility] Comment on above: Order Comment: Order added by Discern Expert. Result Comment: Chairperson Anesthesiology sonu kidney disease could be indicated at eGFR's of less than 60 mL/min/1.73m2. Kidney failure is indicated at less than 15 mL/min/1.73m2. Performed By: #### 2 408434, 82356710, 39141582, 0891351, 64332480, 28018128, 6260440 #### [facility] [address] [place] [address] VC CONSULT FOLLOWUPon 2021 VC CONSULT FOLLOWUP Patient: TORIE JOHNSTON Exam Date: 11/16/2021 : 1990 Gender:F Ordering : DR SADI JEWELL M.D. Admission #: [id number] Family : Order #: [id number] CLICK HERE TO VIEW EXAM RADIOLOGY REPORT [...] Wood M.D. on 11/16/2021 at 12:01 Normal [facility] VC EXT VENOUS LT LIMITEDon 0 11-16-2021 VC EXT VENOUS LT LIMITED Patient: TORIE JOHNSTON Exam Date: 11/16/2021 : 1990 Gender:F Ordering : DR SADI JEWELL M.D. Admission #: [id number] Family : Order #: [id number] CLICK HERE TO VIEW EXAM RADIOLOGY REPORT [...] Wood M.D. on 11/16/2021 at 11:58 Normal [facility] VC ENDOVENOUS ABL 1ST V LTon 11-08-2021 VC ENDOVENOUS ABL 1ST V LT Patient: TORIE JOHNSTON Exam Date: 11/08/2021 : 1990 Gender:F Ordering : DR SADI JEWELL M.D. Admission #: [id number] Family : Order #: [id number] CLICK HERE TO VIEW EXAM RADIOLOGY REPORT PROCEDURE: VEIN CENTER ENDOVENOUS ABLATION FIRST VEIN LEFT COMPARISON: None. INDICATIONS: Pain co-occurrent and due to varicose veins of bilateral legs I83.813 OPERATIVE REPORT: The risks and benefits of the procedure had been previously discussed, and were rediscussed at length. Informed written consent was obtained by az and Ketan Haley assisted. Time out procedure [...] Jose Wood M.D. on 11/08/2021 at 08:59 [facility] VC CONSULT FOLLOWUPon 2021 VC CONSULT FOLLOWUP Patient: TORIE JOHNSTON Exam Date: 10/19/2021 : 1990 Gender:F Ordering : DR SADI JEWELL M.D. Admission #: [id number] Family : Order #: [id number] CLICK HERE TO VIEW EXAM RADIOLOGY REPORT [...] Jose Wood M.D. on 10/19/2021 at 09:37 [facility] VC EXT VENOUS RT LIMITEDon 0 10-19-2021 VC EXT VENOUS RT LIMITED Patient: TORIE JOHNSTON Exam Date: 10/19/2021 : 1990 Gender:F Ordering : DR SADI JEWELL M.D. Admission #: [id number] Family : Order #: [id number] CLICK HERE TO VIEW EXAM RADIOLOGY REPORT [...] Wood M.D. on 10/19/2021 at 09:34 Normal [facility] VC ENDOVENOUS ABL 1ST V RTon 10-16-2021 VC ENDOVENOUS ABL 1ST V RT Patient: TORIE JOHNSTON Exam Date: 10/16/2021 : 1990 Gender:F Ordering : DR SADI JEWELL M.D. Admission #: [id number] Family : Order #: [id number] CLICK HERE TO VIEW EXAM RADIOLOGY REPORT [...] Sadi Jewell MD on 10/16/2021 at 09:30 [facility] THYROIDon 10-10-2021 US THYROID EXAMINATION: US [...] authenticated by: JOSE Quezada: 2021-10-10 08:52 Normal [facility] Vital Signs Date Time Vital Sign Value Performing Clinician Isabelle nielsen 12-10-2021 14:00-0400 Body temperature 98.6 [degF] [facility] 12-10-2021 14:00-0400 Diastolic blood pressure 94 mm[Hg] [facility] 12-10-2021 14:00-0400 Heart rate 86 /min [facility] 12-10-2021 14:00-0400 Mean blood pressure 106 mm[Hg] [facility] 12-10-2021 14:00-0400 Respiratory rate 18 /min [facility] 12-10-2021 14:00-0400 SaO2% (BldA) [Mass fraction] 100 % [facility] 12-10-2021 14:00-0400 Systolic blood pressure 131 mm[Hg] [facility] 12-10-2021 03:38-0400 Body temperature 98.24 [degF] [facility] 12-10-2021 03:38-0400 Diastolic blood pressure 64 mm[Hg] [facility] 12-10-2021 03:38-0400 Heart rate 92 /min [facility] 12-10-2021 03:38-0400 Mean blood pressure 80 mm[Hg] [facility] 12-10-2021 03:38-0400 Respiratory rate 17 /min [facility] 12-10-2021 03:38-0400 SaO2% (BldA) [Mass fraction] 99 % [facility] 12-10-2021 03:38-0400 Systolic blood pressure 111 mm[Hg] [facility] 12-10-2021 03:00-0400 Diastolic blood pressure 85 mm[Hg] [facility] 12-10-2021 03:00-0400 Mean blood pressure 102 mm[Hg] [facility] 12-10-2021 03:00-0400 Systolic blood pressure 137 mm[Hg] [facility] 12-10-2021 00:00-0400 Heart rate 80 /min [facility] 12-09-2021 23:00-0400 gluc 90 mg/dL [facility] 12-09-2021 23:00-0400 gluc [facility] 12-09-2021 23:00-0400 Heart rate 75 /min [facility] 12-09-2021 22:46-0400 Heart rate 86 /min [facility] Encounters Encounter Date Encounter Type Care Provider Facility Start: 2023 End: 06-21-2023 ambulatory EVGENY ZHOU Facility:[facility] Start: 09-20-2022 End: 09-21-2022 ambulatory MAHAD [...] 12-09-2021 End: 12-10-2021 Emergency department patient visit [facility] Start: 11-23-2021 End: 11-24-2021 ambulatory FINANCE ASSISTANT YAMILE GARCIA Facility:[facility] Start: 11-21-[address] [...] End: 08-22-2020 Patient encounter procedure External Provider [facility] Start: 08-22-2020 Results Only External Provider Exter nal-NonCCF Procedures Date Procedure Procedure Detail Performing Clinician Start: 08-22-2020 EXTERNAL IMAGING Employee Representative al Provider Start: 08-22-2020 EXTERNAL LAB External P rovider Plan of Treatment Date Care Activity Detail Author Start: 01-26-2020 Influenza vaccination INFLUENZA (#1) [facility] Start: 2019 HPV TESTING HPV TESTING [facility] Start: 2010 PAP TESTING PAP TESTING [facility] Start: 2008 Urine microalbumin profile DTAP,TDAP ,TD (1 - Tdap) [facility] Start: 2007 HEPATITIS C SCREENING HEPATITIS C SC REENING [facility] Start: 2007 HIV SCREENING HIV SCREENING [facility] Start: 2001 Adult depression scr eening assessment DEPRESSION SCREENING [facility] Payers Date Payer Category Payer Private Health Insurance AETNA A ETNA OPEN ACCESS [employer] SELECT [id number] 2020-Present EPO [id number] 1989 Unknown [id number] 2.16.840.1.224166.3.579.2.5 93 1989 Unknown [id number] 2.16.840.1.122782.3.579.2.5 1989 Unknown [id number] 2.16.840.1.868708.3.579.2.5 1989 Unknown [id number] 2.16.840.1.231829.3.579.2.5 1989 Unknown [id number] 2.16.840.1.842792.3.579.2.5 93 1989 Unknown [id number] 2.16.840.1.102844.3.579.2.5 1989 Unknown [id number] 2.16.840.1.275221.3.579.2.5 1989 Unknown [id number] 2.16.840.1.532111.3.579.2.5 1989 Unknown [id number] 2.16.840.1.134295.3.579.2.5 1989 Unknown [id number] 2.16.840.1.480184.3.579.2.5 1989 Unknown [id number] 2.16.840.1.738842.3.579.2.5 1989 Unknown [id number] 2.16.840.1.271214.3.579.2.5 1989 Unknown [id number] 2.16.840.1.768930.3.579.2.5 1989 Unknown [id number] 2.16.840.1.485301.3.579.2.5 1989 Unknown [id number] 2.16.840.1.109881.3.579.2.5 93 1960 Medicaid [id number] 1959 Private Health Insurance [id number] [id number] 1959 Self-pay [id number] 1960 Self-pay 1959 Unknown [id number] 1960 Unknown [id number] Social History Date Type Detail Facility Start: 08-22-2020 Tobacco smoking stat [facility] Unknown if ever smoked [facility] Start: 1990 Sex Assigned At Not on file C [facility] Exposure to SARS-CoV -2 (event) Not sure [facility] Sex Assigned At Photos I Like Other Tobacco smoking status No Smokin g Status Entered [facility] Functional Status Date Assessment Result Facility 12-09-2021 Functional Status N/A [facility] Progress note 2023 Note Date & Type Note Facility 2023 Note HNO ID: [id number] Author: FRANCIS MA MD Service: ? Author Type: Physician Type: Progress Notes Filed: 2023 14:44 Note Text: [facility], [place] Department of Hematologic Oncology and Blood Disorders PATIENT NAME: [facility] NO: [id number] ATTENDING PHYSICIAN: Francis Ma MD. DATE OF SERVICE: [address] iDane Salcedo for an opinion regarding beta-thalassemia. My [...] Abs Lymph 1.00 - 4.00 k/uL 1.42 [place]% % 5.3 Abs [place] <0.87 k/uL 0.21 [place]% % 1.5 Abs [...] in 2018 during ). 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 She was placed on folic [...] We also reviewed (more content not included)... [facility] Evaluation + Plan note 12-10-2021 Note Date [...] Diagnostic Tests Pending * Path. Review 12/10/21 [facility] Hospital Discharge instructions 12-10-2021 Note Date & [...] if you feel dizzy. General instructions Take vjpn-drf-qnwxays and prescription medicines only as told by [...] 02/20/2006 Document Revised: 04/06/2019 Document Reviewed: 04/06/2019 Easy [employer] Online Patient Education 2020 [employer]. Follow Up Care 12/09/2021 22:26:43 With:YAMILE GARCIA Address: [address] [place] [phone] Business (1) When:12/13/2021 Comments:Return to the emergency room if your vertigo recurs or any new symptoms [facility] Clinical Note 12-10-2021 Note Date & Type [...] any SOB. pt has hx of anxiety [facility] Evaluation note Note Date & Type Note Facility Evaluation note No Information [facility] [employer] Other History general Narrative - Reported Note Date & Type Note Facility History general Narrative - Reported Type Surgical History D & C Surgical History tubal ligation [facility] [employer] Other Hospital course Narrative Note Date & Type Note Facility Hospital course Narrative No data available for this section [facility] Progress note Note Date & Type Note Facility Progress note No data available for this section [facility] Summary Purpose Family History No Family History [...] or prosecute any alcohol or drug abuse patient.[facility] the event this information is protected by the Federal Confidentiality of Alcohol and Drug Abuse Patient Records regulations: The Federal rules restrict any use of the information to criminally investigate or prosecute any alcohol or drug abuse patient.[facility] REASON FOR VISIT (unrecogniz ed section and content) N/S covid test Care Team (unrecognized sect ion and content) Personnel Name: YAMILE GARCIA CNP Address: [address] [place], [place] [id number] [place] INFORMATION SOURCE (unrecogn ized section and content) DATE CREATED AUTHOR 12/14/2021 [facility] DATE CREATED AUTHOR AUTHOR'S ORGANIZ ATION 10/06/2022 [facility] DATE CREATED AUTHOR AUTHOR'S ORGANIZ ATION 06/22/2023 [facility] FOR RECORDS PERTAINING TO PATIENTS WHO ARE [...] BE BASED ON THE PRIMARY CLINICAL RECORDS. [facility]. provides no warranty or guarantee of the accuracy or completeness of information in this document.
== END 2023-12-18 15:43 | disposition home or self-care (01) ==
LOC: LAB 15:43
PROVIDERS: Family Provider Nurse Practitioner Primary Care; PCP Nurse Practitioner; Visit Provider Nurse Practitioner
DX: E03.9 Hypothyroidism, unspecified (principal)
CPT/HCPCS: 36415; 84443

== ENCOUNTER 2023-12-20 15:51 | Outpatient (OUT) | payer OTHER, SELFPAY ==
--- NOTE | 2023-12-20 15:52 | US_ITS ---
The [address] [address] Patient Name: ENRIQUE JOHNSTON MRN: [id number] date: 1990 Sex: F Assigned Patient Location: [place] Current Patient Location: Accession/Order Number: [id number] Exam Date: 12/20/2023 16:03 Report Date: 12/23/2023 13:13 At the request of: RONEL NUNN Procedure: US thyroid EXAMINATION: US thyroid HISTORY: HYPOTHYROID E03.9 COMPARISON: Ultrasound thyroid 10/12/2022 FINDINGS: RIGHT LOBE: Markedly heterogeneous echotexture with subtle 14 x 9 x 10 mm nodule within posterior mid body, TR 4. Lobe size: 5.0 x 1.8 1.9 cm LEFT LOBE: Markedly heterogeneous echotexture. There are 3 hypoechoic TR4 nodules which appear to be posterior to the inferior aspect of the lobe; nonspecific; 11 mm, 10 mm, and 7 mm in maximum diameter respectively. Lobe size: 5.1 x 1.8 x 2.1 cm ISTHMUS: Thickened and markedly heterogeneous. Thickness: 6 mm US/US thyroid IMPRESSION: 1. Markedly heterogeneous thyroid glands of uncertain etiology. 2. Slight increase in size versus other seen TR 4 nodule within posterior mid body of right lobe. Follow-up ultrasound evaluation in one year. 3. Nonspecific small nodules posterior to inferior pole of left lobe. Continued follow-up is recommended. TR4 (moderately suspicious): If > 1.0 cm, follow-up ultrasound in 1, 2, 3, and 5 years. If > 1.5 cm, fine needle aspiration (FNA). Electronically authenticated by: CAMILO URIAS Date: 12/23/2023 13:13
--- OUTSIDE RECORDS SUMMARY | 2023-12-20 15:57 | XMS_ITS | CCD ---
Author Organization [facility] Inform ion Partnership [facility] Care Team Providers Care Polytechnic Registrar Name Role Phone Unavailable Primary Care Provider Juan Carlos Panchal Unavailable CEDRICYAMILE BRANDON Primary Care Physician FANTA, DR SADI Oliveira Consulting Unavailable AICHHOLZ, WASTEWATER TREATMENT PLANT SUPERVISOR YAMILE Primary Care Unavailable WEST, DR SADI Oliveira Attending Unavailable WEST, DR SADI Oliveira Admitting Unavailable WEST, DR SADI Oliveira Consulting Unavailable AICHHOLZ, WASTEWATER TREATMENT PLANT SUPERVISOR YAMILE Primary Care Unavailable WEST, DR SADI Oliveira Attending Unavailable WEST, DR SADI Oliveira Admitting Unavailable ZIEBER, DR JOSE Crowley Consulting Unavailable WEST, DR SADI Oliveira Consulting Unavailable AICHHOLZ, WASTEWATER T[employer]ATMENT PLANT SUPERVISOR YAMILE Primary Care Unavailable WEST, DR SADI Oliveira Attending Unavailable WEST, DR SADI Oliveira Admitting Unavailable ZIEBER, DR JOSE Crowley Consulting Unavailable WEST, DR SADI Oliveira Consulting Unavailable AICHHOLZ, WASTEWATER TREATMENT PLANT SUPERVISOR YAMILE Primary Care Unavailable WEST, DR SADI Oliveira Attending Unavailable WEST, DR SADI Oliveira Admitting Unavailable WEST, DR SADI Oliveira Consulting Unavailable AICHHOLZ, WASTEWATER TREATMENT PLANT SUPERVISOR YAMILE Primary Care Unavailable WEST, DR SADI Oliveira Attending Unavailable WEST, DR SADI Oliveira Admitting Unavailable ZIEBER, DR JOSE Crowley Consulting Unavailable WEST, DR SADI Oliveira Consulting Unavailable AICHHOLZ, WASTEWATER TREATMENT PLANT SUPERVISOR YAMILE Primary Care Unavailable WEST, DR SADI Oliveira Attending Unavailable FANTA, DR SADI Oliveira Admitting Unavailable ZIEBER, DR JOSE Crowley Consulting Unavailable FANTA, DR SADI Oliveira Admitting Unavailable WEST, DR SADI Oliveira Attending Unavailable AICHHOLZ, WASTEWATER TREATMENT PLANT SUPERVISOR YAMILE Primary Care Unavailable WEST, DR SADI Oliveira Consulting Unavailable AICHHOLZ, WASTEWATER TREATMENT PLANT SUPERVISOR YAMILE Consulting Unavailable AICHHOLZ, WASTEWATER TREATMENT PLANT SUPERVISOR YAMILE Primary Care Unavailable AICHHOLZ, WASTEWATER TREATMENT PLANT SUPERVISOR YAMILE Attending Unavailable AICHHOLZ, WASTEWATER TREATMENT PLANT SUPERVISOR YAMILE Admitting Unavailable AICHHOLZ, WASTEWATER TREATMENT PLANT SUPERVISOR YAMILE Admitting Unavailable AICHHOLZ, WASTEWATER TREATMENT PLANT SUPERVISOR YAMILE Attending Unavailable AICHHOLZ, WASTEWATER TREATMENT PLANT SUPERVISOR YAMILE Primary Care Unavailable AICHHOLZ, WASTEWATER TREATMENT PLANT SUPERVISOR YAMILE Consulting Unavailable ADONAY, DR JOSE Crowley Consulting Unavailable AICHHOLZ, WASTEWATER TREATMENT PLANT SUPERVISOR YAMILE Consulting Unavailable AICHHOLZ, WASTEWATER TREATMENT PLANT SUPERVISOR YAMILE Primary Care Unavailable AICHHOLZ, WASTEWATER TREATMENT PLANT SUPERVISOR YAMILE Attending Unavailable AICHHOLZ, WASTEWATER TREATMENT PLANT SUPERVISOR YAMILE Admitting Unavailable ADONAY, DR JOSE Crowley Consulting Unavailable FRANDY ., DR MATOS Attending Unavailable FRANDY ., DR MATOS Admitting Unavailable AICHHOLZ, WASTEWATER TREATMENT PLANT SUPERVISOR YAMILE Primary Care Unavailable FRANDY ., DR MATOS Consulting Unavailable CONNIE COTA Consulting Unavailable MARIAN HIGGINS Consulting Unavailable STAR Montejo, MADDIE Attending Unavailable STAR ., MADDIE Admitting Unavailable AICHHOLZ, WASTEWATER TREATMENT PLANT SUPERVISOR YAMILE Primary Care Unavailable JOSE RICKETTS Consulting Unavailable STAR ., MADDIE Consulting Unavailable RONALDO, MARIAN Consulting Unavailable RONALDO, MARIAN Attending Unavailable RONALDO, MARIAN Admitting Unavailable AICHHOLZ, WASTEWATER TREATMENT PLANT SUPERVISOR YAMILE Primary Care Unavailable PAKO JERRY Consulting Unavailable ANA VAZ Consulting Unavailable RONALDO, MARIAN Attending Unavailable RONALDO, MARIAN Admitting Unavailable AICHHOLZ, WASTEWATER TREATMENT PLANT SUPERVISOR YAMILE Primary Care Unavailable LEROY PRETTY Consulting Unavailable Ludy Garcia Consulting Unavailable FANTA, DR SADI Oliveira Consulting Unavailable AICHHOLZ, WASTEWATER TREATMENT PLANT SUPERVISOR YAMILE Primary Care Unavailable FANTA, DR SADI [...] 3 Episodic Other aftercare (1 source) Other predatory animal exterminator (current) drug therapy; Translations: [OTH PAY STATION ATTENDANT CURRENT DRUG THERAPY] Onset: 3 Episodic Other [...] Basophils (Bld) [#/Vol] 0.03 10*3/uL Normal <0.11 [facility] Comment on above: Order Comment: Speci men Type: BLOOD SPECIMEN Ordering Facility: [facility] Address: [address] [place], [place] [address] Performed By: #### 1 4196-0, 25852-6 #### [facility] [id number] [address] [place] [address] [place] Basophils/100 WBC (Bld) 0.5 % Normal [facility] Comment on above: Order Comment: Speci men Type: BLOOD SPECIMEN Ordering Facility: [facility] Address: [address] [place] [address] Performed By: #### 1 4196-0, 27717-8 #### [facility] [id number] [address] [place] [address] [place] Differential cell count method Nom (Bld) Auto Normal [facility] Comment on above: Order Comment: Speci men Type: BLOOD SPECIMEN Ordering Facility: [facility] Address: [address] [place] [address] Performed By: #### 1 4196-0, 87791-4 #### [facility] [id number] [address] [place] [address] [place] Eosinophils (Bld) [#/Vol] 0.10 10*3/uL Normal <0.46 [facility] Comment on above: Order Comment: Speci men Type: BLOOD SPECIMEN Ordering Facility: [facility] Address: [address] [place] [address] Performed By: #### 1 4196-0, 68274-6 #### [facility] [id number] [address] [place] [address] [place] Eosinophils/100 WBC (Bld) 1.8 % Normal [facility] Comment on above: Order Comment: Speci men Type: BLOOD SPECIMEN Ordering Facility: [facility] Address: [address] [place] [address] Performed By: #### 1 4196-0, 59558-2 #### [facility] [id number] [address] [place] [address] [place] Erythrocyte distribution width (RBC) [Ratio] 16.5 % High 11.5-15.0 [facility] Comment on above: Order Comment: Speci men Type: BLOOD SPECIMEN Ordering Facility: [facility] Address: [address] [place] [address] Performed By: #### 1 4196-0, 10750-5 #### [facility] [id number] [address] [place] [address] [place] Hematocrit (Bld) [Volume fraction] 34.9 % Low 36.0-46.0 [facility] Comment on above: Order Comment: Speci men Type: BLOOD SPECIMEN Ordering Facility: [facility] Address: [address] [place] [address] Performed By: #### 1 4196-0, 72909-6 #### [facility] [id number] [address] [place] [address] [place] Hemoglobin (Bld) [Mass/Vol] 10.5 g/dL Low 11.5-15.5 [facility] Comment on above: Order Comment: Speci men Type: BLOOD SPECIMEN Ordering Facility: [facility] Address: [address] [place] [address] Performed By: #### 1 4196-0, 37245-4 #### [facility] [id number] [address] [place] [address] [place] Immature granulocytes (Bld) [#/Vol] 10*3/uL Normal <0.10 [facility] Comment on above: Order Comment: Speci men Type: BLOOD SPECIMEN Ordering Facility: [facility] Address: [address] [place] [address] Performed By: #### 1 4196-0, 45329-6 #### [facility] [place] [id number] [address] [place] [address] [place] Immature granulocytes/100 WBC (Bld) 0.2 % Normal [facility] Comment on above: Order Comment: Speci men Type: BLOOD SPECIMEN Ordering Facility: [facility] Address: [address] [place] [address] Performed By: #### 1 4196-0, 29747-9 #### [facility] [id number] [address] [place] [address] [place] Lymphocytes (Bld) [#/Vol] 1.77 10*3/uL Normal 1.00-4.00 [facility] Comment on above: Order Comment: Speci men Type: BLOOD SPECIMEN Ordering Facility: [facility] Address: [address] [place] [address] Performed By: #### 1 4196-0, 68998-4 #### [facility] [id number] [address] [place] [address] [place] Lymphocytes/100 WBC (Bld) 31.3 % Normal [facility] Comment on above: Order Comment: Speci men Type: BLOOD SPECIMEN Ordering Facility: [facility] Address: [address] [place] [address] Performed By: #### 1 4196-0, 57886-2 #### [facility] [id number] [address] [place] [address] [place] MCH (RBC) [Entitic mass] 17.9 pg Low 26.0-34.0 [facility] Comment on above: Order Comment: Speci men Type: BLOOD SPECIMEN Ordering Facility: [facility] Address: [address] [place] [address] Performed By: #### 1 4196-0, 61321-0 #### [facility] [id number] [address] [place] [address] [place] MCHC (RBC) [Mass/Vol] 30.1 g/dL Low 30.5-36.0 [facility] Comment on above: Order Comment: Speci men Type: BLOOD SPECIMEN Ordering Facility: [facility] Address: [address] [place] [address] Performed By: #### 1 4196-0, 33802-9 #### [facility] [id number] [address] [place] [address] [place] MCV (RBC) [Entitic vol] 59.7 fL Low 80.0-100.0 [facility] Comment on above: Order Comment: Speci men Type: BLOOD SPECIMEN Ordering Facility: [facility] Address: [address] [place] [address] Performed By: #### 1 4196-0, 74251-6 #### [facility] [id number] [address] [place] [address] [place] Monocytes (Bld) [#/Vol] 0.25 10*3/uL Normal <0.87 [facility] Comment on above: Order Comment: Speci men Type: BLOOD SPECIMEN Ordering Facility: [facility] Address: [address] [place] [address] Performed By: #### 1 4196-0, 94069-5 #### [facility] [id number] [address] [place] [address] [place] Monocytes/100 WBC (Bld) 4.4 % Normal [facility] Comment on above: Order Comment: Speci men Type: BLOOD SPECIMEN Ordering Facility: [facility] Address: [address] [place] [address] Performed By: #### 1 4196-0, 50948-6 #### [facility] [id number] [address] [place] [address] [place] Neutrophils (Bld) [#/Vol] 3.49 10*3/uL Normal 1.45-7.50 [facility] Comment on above: Order Comment: Speci men Type: BLOOD SPECIMEN Ordering Facility: [facility] Address: [address] [place] [address] Performed By: #### 1 4196-0, 58483-2 #### [facility] [id number] [address] [place] [address] [place] Neutrophils/100 WBC (Bld) 61.8 % Normal [facility] Comment on above: Order Comment: Speci men Type: BLOOD SPECIMEN Ordering Facility: [facility] Address: [address] [place] [address] Performed By: #### 1 4196-0, 85546-7 #### [facility] [place] [id number] [address] [place] [address] [place] Nucleated RBC (Bld) [#/Vol] 10*3/uL Normal <0.01 [facility] Comment on above: Order Comment: Speci men Type: BLOOD SPECIMEN Ordering Facility: [facility] Address: [address] [place] [address] Performed By: #### 1 4196-0, 88593-4 #### [facility] [place] [id number] [address] [place] [address] [place] Nucleated RBC/100 WBC (Bld) [Ratio] 0.0 /100 WBC Normal [facility] Comment on above: Order Comment: Speci men Type: BLOOD SPECIMEN Ordering Facility: [facility] Address: [address] [place] [address] Performed By: #### 1 4196-0, 81582-1 #### [facility] [place] [id number] [address] [place] [address] [place] Platelet mean volume (Bld) [Entitic vol] 10.5 fL Normal 9.0-12.7 [facility] Comment on above: Order Comment: Speci men Type: BLOOD SPECIMEN Ordering Facility: [facility] Address: [address] [place] [address] Performed By: #### 1 4196-0, 73276-7 #### [facility] CLIA [id number] [address] [place] [address] [place] Platelets (Bld) [#/Vol] 325 10*3/uL Normal 150-400 [facility] Comment on above: Order Comment: Speci men Type: BLOOD SPECIMEN Ordering Facility: [facility] Address: [address] [place] [address] Result Comment: Resu lts checked and verified.No clot detected. Performed By: #### 1 4196-0, 35672-0 #### [facility] CLIA [id number] [address] [place] [address] [place] RBC (Bld) [#/Vol] 5.85 10*6/uL High 3.90-5.20 [facility] Comment on above: Order Comment: Speci men Type: BLOOD SPECIMEN Ordering Facility: [facility] Address: [address] [place] [address] Performed By: #### 1 4196-0, 34991-0 #### [facility] CLIA [id number] [address] [place] [address] [place] WBC (Bld) [#/Vol] 5.65 10*3/uL Normal 3.70-11.00 [facility] Comment on above: Order Comment: Speci men Type: BLOOD SPECIMEN Ordering Facility: [facility] Address: [address] [place] [address] Performed By: #### 1 4196-0, 96284-0 #### [facility] CLIA [id number] [address] [place] [address] [place] CNOVSPon 2023 CNOVSP Visit (SP) Office ([facility]) TORIE JOHNSTON ([id number]) 1990 F Date Time Provider Department 06/20/23 2:00 PM FRANCIS MA [facility] During your visit today, we recorded the following information about you: Pulse Respiration Blood pressure Weight 86/minute 20/minute 127/81 106.3 kg Height Last Period 1.6 m 06/17/23 Francis Ma MD 2023 2:44 PM Signed [facility], [place] Department of Hematologic Oncology and Blood Disorders PATIENT NAME: Torie Crowley [facility] NO: [id number] ATTENDING PHYSICIAN: Francis Ma MD. DATE OF [...] Abs Lymph 1.00 - 4.00 k/uL 1.42 [place]% % 5.3 Abs [place] <0.87 k/uL 0.21 E[place]% % 1.5 Abs [...] in 2018 during ). 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 She was placed on folic acid. [...] of transfusion (more content not included)... Normal [facility] Comprehensive metabolic 2000 panelon 2023 Albumin [Mass/Vol] 4.4 g/dL Normal 3.9-4.9 [facility] Comment on above: Order Comment: Speci men Type: BLOOD SPECIMEN Ordering Facility: [facility] Address: [address] [place] [address] Performed By: #### 2 4323-8, 64360-3 #### [facility] CLIA [id number] [address] [place] [address] [place] ALP [Catalytic activity/Vol] 68 U/L Normal 34-123 [facility] Comment on above: Order Comment: Speci men Type: BLOOD SPECIMEN Ordering Facility: [facility] Address: [address] [place] [address] Performed By: #### 2 4323-8, 44477-6 #### [facility] [place] [id number] [address] [place] [address] [place] ALT [Catalytic activity/Vol] 28 U/L Normal 7-38 [facility] Comment on above: Order Comment: Speci men Type: BLOOD SPECIMEN Ordering Facility: [facility] Address: [address] [place] [address] Performed By: #### 2 4323-8, 36225-6 #### [facility] [place] [id number] [address] [place] [address] [place] Anion gap [Moles/Vol] 10 mmol/L Normal 9-18 [facility] Comment on above: Order Comment: Speci men Type: BLOOD SPECIMEN Ordering Facility: [facility] Address: [address] [place] [address] Performed By: #### 2 4323-8, 30335-2 #### [facility] [place] [id number] [address] [place] [address] [place] AST [Catalytic activity/Vol] 22 U/L Normal 13-35 [facility] Comment on above: Order Comment: Speci men Type: BLOOD SPECIMEN Ordering Facility: [facility] Address: [address] [place] [address] Performed By: #### 2 4323-8, 64720-1 #### [facility] [place] [id number] [address] [place] [address] [place] Bilirubin [Mass/Vol] 0.4 mg/dL Normal 0.2-1.3 [facility] Comment on above: Order Comment: Speci men Type: BLOOD SPECIMEN Ordering Facility: [facility] Address: [address] [place] [address] Performed By: #### 2 4323-8, 92939-2 #### [facility] CLIA [id number] [address] [place] [address] [place] Calcium [Mass/Vol] 9.1 mg/dL Normal 8.5-10.2 [facility] Comment on above: Order Comment: Speci men Type: BLOOD SPECIMEN Ordering Facility: [facility] Address: [address] [place] [address] Performed By: #### 2 4323-8, 86889-8 #### [facility] CLIA [id number] [address] [place] [address] [place] Chloride [Moles/Vol] 106 mmol/L High 97-105 [facility] Comment on above: Order Comment: Speci men Type: BLOOD SPECIMEN Ordering Facility: [facility] Address: [address] [place] [address] Performed By: #### 2 4323-8, 88465-6 #### [facility] CLIA [id number] [address] [place] [address] [place] CO2 [Moles/Vol] 25 mmol/L Normal 22-30 [facility] Comment on above: Order Comment: Speci men Type: BLOOD SPECIMEN Ordering Facility: [facility] Address: [address] [place] [address] Performed By: #### 2 4323-8, 38530-3 #### [facility] CLIA [id number] [address] [place] [address] [place] Creatinine [Mass/Vol] 0.90 mg/dL Normal 0.58-0.96 [facility] Comment on above: Order Comment: Speci men Type: BLOOD SPECIMEN Ordering Facility: [facility] Address: [address] [place] [address] Performed By: #### 2 4323-8, 26173-2 #### [facility] [place] [id number] [address] [place] [address] [place] Creatinine and Glomerular filtration rate.predicted panel (S/P/Bld) 86 mL/min/1.73m??? Normal >=60 [facility] Comment on above: Order Comment: Tiffanie spence Type: BLOOD SPECIMEN Ordering Facility: [facility] Address: [address] [place] [address] Result Comment: Kenyatta mated Glomerular Filtration Rate [...] actual GFR. Performed By: #### 2 4323-8, 79893-3 #### [facility] [place] [id number] [address] [place] [address] [place] Glucose [Mass/Vol] 92 mg/dL Normal 74-99 [facility] Comment on above: Order Comment: Tiffanie spence Type: BLOOD SPECIMEN Ordering Facility: [facility] Address: [address] [place] [address] Result Comment: The [place] [employer] (ADA) provides guidance for cutoff [...] Standards of Medical Care in Diabetes 2016, [place] [employer]. Diabetes Care. 2016.39(Suppl 1). Performed By: #### 2 4323-8, 34870-6 #### [facility] [place] [id number] [address] [place] [address] [place] Potassium [Moles/Vol] 4.0 mmol/L Normal 3.7-5.1 [facility] Comment on above: Order Comment: Speci men Type: BLOOD SPECIMEN Ordering Facility: [facility] Address: [address] [place] [address] Performed By: #### 2 4323-8, 61311-7 #### [facility] [id number] [address] [place] [address] [place] Protein [Mass/Vol] 7.4 g/dL Normal 6.3-8.0 [facility] Comment on above: Order Comment: Speci men Type: BLOOD SPECIMEN Ordering Facility: [facility] Address: [address] [place] [address] Performed By: #### 2 4323-8, 50653-8 #### [facility] [id number] [address] [place] [address] [place] Sodium [Moles/Vol] 141 mmol/L Normal 136-144 [facility] Comment on above: Order Comment: Speci men Type: BLOOD SPECIMEN Ordering Facility: [facility] Address: [address] [place] [address] Performed By: #### 2 4323-8, 07348-8 #### [facility] [id number] [address] [place] [address] [place] Urea nitrogen [Mass/Vol] 16 mg/dL Normal 7-21 [facility] Comment on above: Order Comment: Speci men Type: BLOOD SPECIMEN Ordering Facility: [facility] Address: [address] [place] [address] Performed By: #### 2 4323-8, 34221-7 #### [facility] [id number] [address] [place], [place] [id number] [place] Ferritin SerPl-mCncon 2023 Ferritin [Mass/Vol] 73.6 ng/mL Normal 14.7-205.1 [facility] Comment on above: Order Comment: Speci men Type: BLOOD SPECIMEN Ordering Facility: [facility] Address: [address] [place] [address] Performed By: #### 4 542-7, 2276-4 #### [facility] CLIA [id number] [address] [place] [address] [place] Haptoglob SerPl-mCncon 06-20 Haptoglobin [Mass/Vol] 66 mg/dL Normal 31-238 [facility] Comment on above: Order Comment: Speci men Type: BLOOD SPECIMEN Ordering Facility: [facility] Address: [address] [place] [address] Performed By: #### 4 542-7, 2276-4 #### [facility] CLIA [id number] [address] [place] [address] [place] Iron and Iron binding capaci ty panelon 2023 Iron [Mass/Vol] 66 ug/dL Normal 41-186 [facility] Comment on above: Order Comment: Speci men Type: BLOOD SPECIMEN Ordering Facility: [facility] Address: [address] [place] [address] Performed By: #### 2 4323-8, 58776-8 #### [facility] CLIA [id number] [address] [place] [address] [place] Iron binding capacity [Mass/Vol] 352 ug/dL Normal 232-386 [facility] Comment on above: Order Comment: Speci men Type: BLOOD SPECIMEN Ordering Facility: [facility] Address: [address] [place] [address] Performed By: #### 2 4323-8, 50192-9 #### [facility] CLIA [id number] [address] [place] [address] [place] Iron/TIBC [Molar ratio] 18.8 % Normal 15.0-57.0 [facility] Comment on above: Order Comment: Speci men Type: BLOOD SPECIMEN Ordering Facility: [facility] Address: [address] [place] [address] Performed By: #### 2 4323-8, 40131-1 #### [facility] [id number] [address] [place] [address] [place] LDH SerPl-cCncon 2023 LDH [Catalytic activity/Vol] 193 U/L Normal 135-214 [facility] Comment on above: Order Comment: Speci men Type: BLOOD SPECIMEN Ordering Facility: [facility] Address: [address] [place] [address] Performed By: #### 2 532-0 #### [facility] [id number] [address] [place] [address] [place] Retics #on 2023 Reticulocytes (Bld) [#/Vol] 0.71466 10*3/uL High 0.018-0.100 [facility] Comment on above: Order Comment: Speci men Type: BLOOD SPECIMEN Ordering Facility: [facility] Address: [address] [place] [address] Performed By: #### 1 4196-0, 08503-2 #### [facility] [id number] [address] [place] [address] [place] Reticulocytes (Bld) [#/Vol]o n 2023 Reticulocytes/100 RBC (Bld) 2.2 % High 0.4-2.0 [facility] Comment on above: Order Comment: Speci men Type: BLOOD SPECIMEN Ordering Facility: [facility] Address: [address] [place] [address] Performed By: #### 1 4196-0, 73082-4 #### [facility] [id number] [address] [place] [address] OF [facility] CBC AUTO DIFFon 09-20-2022 BASO # 0.0 103/ul Normal 0.0-0.1 [facility] Comment on above: Performed By: #### C BC ####[facility] [address] [place] [address]Dr. Zuly Aparicio Basophils/100 WBC (Bld) 0.5 % Normal 0.2-2.0 [facility] Comment on above: Performed By: #### C BC ####[facility] [address] [place] [address]Dr. Zuly Aparicio EO # 0.1 103/ul Normal 0.0-0.7 [facility] Comment on above: Performed By: #### C BC ####[facility] [address] [place] [address]Dr. Zuly Aparicio Eosinophils/100 WBC (Bld) 1.5 % Normal 0.9-7.0 [facility] Comment on above: Performed By: #### C BC ####[facility] [address] [place] [address]Dr. Zuly Aparicio Erythrocyte distribution width (RBC) [Ratio] 15.8 % Critically high 11.0-15.0 [facility] Comment on above: Performed By: #### C BC ####[facility] [address] [place] [address]Dr. Zuly Aparicio Hematocrit (Bld) [Volume fraction] 34.1 % Critically low 36.0-48.0 [facility] Comment on above: Performed By: #### C BC ####[facility] [address] [place] [address]Dr. Zuly Aparicio Hemoglobin (Bld) [Mass/Vol] 10.1 g/dL Critically low 12.0-16.0 [facility] Comment on above: Performed By: #### C BC ####[facility] [address] [place] [address]Dr. Zuly Aparicio IG # 0.01 10e3/ul Normal 0.00-0.03 [facility] Comment on above: Performed By: #### C BC ####[facility] [address] [place] [id number]. Zuly Aparicio IG % 0.2 % Normal 0.0-0.5 [facility] Comment on above: Performed By: #### C BC ####[facility] [address] [place] [id number]. Zuly Aparicio LYMPH # 1.6 103/ul Normal 1.2-3.8 [facility] Comment on above: Performed By: #### C BC ####[facility] [address] [place] [id number]. Zuly Aparicio Lymphocytes/100 WBC (Bld) 39.2 % Normal 20.5-60.0 [facility] Comment on above: Performed By: #### C BC ####[facility] [address] [place] [id number]. Zuly Aparicio MANUAL DIFF REQ NO Normal [facility] Comment on above: Performed By: #### C BC ####[facility] Ald[address]ql[address] [place] [id number]. Zuly Aparicio MCH (RBC) [Entitic mass] 17.7 pg Critically low 26.7-34.0 [facility] Comment on above: Performed By: #### C BC ####[facility] [address] [place] [id number]. Zuly Aparicio MCHC (RBC) [Mass/Vol] 29.6 g/dL Critically low 29.9-35.2 [facility] Comment on above: Performed By: #### C BC ####[facility] [address] [place] [id number]. Zuly Aparicio MCV (RBC) [Entitic vol] 59.7 fL Critically low 81.0-99.0 [facility] Comment on above: Performed By: #### C BC ####[facility] [address] [place] [id number]. Zuly Aparicio MONO # 0.3 103/ul Normal 0.3-0.8 [facility] Comment on above: Performed By: #### C BC ####[facility] [address] [place] [id number]. Zuly Aparicio Monocytes/100 WBC (Bld) 6.5 % Normal 1.7-12.0 [facility] Comment on above: Performed By: #### C BC ####[facility] [address]afles[address] [place] [id number]. Zuly Aparicio NEUT # 2.1 103/ul Normal 1.4-6.5 [facility] Comment on above: Performed By: #### C BC ####[facility] [address] [place] [id number]. Zuly Aparicio Neutrophils/100 WBC (Bld) 52.1 % Normal 43.0-75.0 [facility] Comment on above: Performed By: #### C BC ####[facility] [address] [place] [id number]. Zuly Aparicio Platelet mean volume (Bld) [Entitic vol] 10.0 fL Normal 9.5-13.5 [facility] Comment on above: Performed By: #### C BC ####[facility] [address]kt[address] [place] [id number]. Zuly Aparicio PLT 333 103/ul Normal 150-450 [facility] Comment on above: Performed By: #### C BC ####[facility] [address]toy[address] [place] [id number]. Zuly Aparicio RBC 5.71 106/ul Critically high 4.20-5.40 [facility] Comment on above: Performed By: #### C BC ####[facility] [address]ty[address] [place] [id number]. Zuly Aparicio WBC 4.0 103/ul Normal 4.0-11.0 [facility] Comment on above: Performed By: #### C BC ####[facility] [address]ft[address] [place] [id number]. Zuly Aparicio FREE T4on 09-20-2022 Free T4 [Mass/Vol] 1.11 ng/dL Normal 0.76-1.46 [facility] Comment on above: Performed By: #### E JEFERSON HOOPER #### [facility] [address] [place] [address] Dr. Zuly Aparicio IRONon 09-20-2022 Iron [Mass/Vol] 89.0 ug/dL Normal 50.0-170.0 [facility] Comment on above: Performed By: #### CHAYITO ASHERRO #### [facility] [address] [place] [address] Dr. Zuly Aparicio PROF 14(COMP METB)on 023 Albumin [Mass/Vol] 3.7 g/dL Normal 3.4-5.0 [facility] Comment on above: Performed By: #### CHAYITO ASHERRO #### [facility] [address] [place] [address] Dr. Zuly Aparicio Albumin/Globulin [Mass ratio] 1.0 {ratio} Normal [facility] Comment on above: Performed By: #### CHAYITO ASHERRO #### [facility] [address] [place] [address] Dr. Zuly Aparicio ALP [Catalytic activity/Vol] 63 U/L Normal 46-116 [facility] Comment on above: Performed By: #### CHAYITO ASHERRO #### [facility] [address] [place] [address] Dr. Zuly Aparicio ALT [Catalytic activity/Vol] 50 U/L Normal 14-59 [facility] Comment on above: Performed By: #### CHAYITO ASHERRO #### [facility] [address] [place] [address] Dr. Zuly Aparicio Anion gap [Moles/Vol] 10.4 mmol/L Normal [facility] Comment on above: Performed By: #### CHAYITO ASHERRO #### [facility] [address] [place] [address] Dr. Zuly Aparicio AST [Catalytic activity/Vol] 24 U/L Normal 15-37 [facility] Comment on above: Performed By: #### JEFERSON ASHER #### [facility] [address] [place] [address] Dr. Zuly Aparicio Bilirubin [Mass/Vol] 0.5 mg/dL Normal 0.2-1.0 [facility] Comment on above: Performed By: #### CHAYITO ASHERRO #### [facility] [address] [place] [address] Dr. Zuly Aparicio Calcium [Mass/Vol] 8.8 mg/dL Normal 8.5-10.1 [facility] Comment on above: Performed By: #### CHAYITO ASHERRO #### [facility] [address] [place] [address] Dr. Zuly Aparicio Chloride [Moles/Vol] 108 mmol/L Critically high 98-107 [facility] Comment on above: Performed By: #### CHAYITO ASHERRO #### [facility] [address] [place] [address] Dr. Zuly Aparicio CO2 [Moles/Vol] 27.5 mmol/L Normal 21.0-32.0 [facility] Comment on above: Performed By: #### CHAYITO ASHERRO #### [facility] [address] [place] [address] Dr. Zuly Aparicio Creatinine [Mass/Vol] 0.94 mg/dL Normal 0.55-1.02 [facility] Comment on above: Performed By: #### CHAYITO ASHERRO #### [facility] [address] [place] [address] Dr. Zuly Aparicio EGFR-AF GABONESE >60 Normal >=60 [facility] Comment on above: Performed By: #### CHAYITO ASHERRO #### [facility] [address] [place] [address] Dr. Zuly Aparicio EGFR-NON AF GABONESE >60 Normal >=60 [facility] Comment on above: Performed By: #### CHAYITO ASHERRO #### [facility] [address] [place] [address] Dr. Zuly Aparicio Globulin (S) [Mass/Vol] 3.7 g/dL Normal [facility] Comment on above: Performed By: #### CHAYITO ASHERRO #### [facility] [address] [place] [address] [address] Zuly Aparicio Glucose [Mass/Vol] 83 mg/dL Normal 74-106 [facility] Comment on above: Performed By: #### Roshan HOOPER UMICRO #### [facility] [address] [place] [address] [address] Zuly Aparicio Potassium [Moles/Vol] 3.9 mmol/L Normal 3.5-5.1 [facility] Comment on above: Performed By: #### Roshan HOOPER UMICRO #### [facility] [address] [place] [address] Dr. Zuly Aparicio Protein [Mass/Vol] 7.4 g/dL Normal 6.4-8.2 [facility] Comment on above: Performed By: #### Roshan HOOPER UMFAVIOLARO #### [facility] [address] [place] [address] Dr. Zuly Aparicio Sodium [Moles/Vol] 142 mmol/L Normal 136-145 [facility] Comment on above: Performed By: #### Roshan HOOPER UMICRO #### [facility] [address] [place] [address] Dr. Zuly Aparicio Urea nitrogen [Mass/Vol] 14.0 mg/dL Normal 7.0-18.0 [facility] Comment on above: Performed By: #### Roshan HOOPER UMICRO #### [facility] [address] [place] [address] [address] Zuly Aparicio Urea nitrogen/Creatinine [Mass ratio] 14.9 mg/mg Normal [facility] Comment on above: Performed By: #### Roshan HOOPER UMICRO #### [facility] [address] [place] [address] Dr. Zuly Aparicio TSHon 09-20-2022 TSH 1.491 uIU/mL Normal 0.358-3.740 [facility] Comment on above: Performed By: #### Roshan HOOPER UMICRO #### [facility] [address] [place] [address] Dr. Zuly Aparicio VC INJ SCL [place] AGRIC[employer]URE LABORATORY TECHNICIAN VEINSon 0 4-11-2023 VC INJ SCL [place] [employer]IC[employer] LABORATORY TECHNICIAN VEINS Patient: TORIE JOHNSTON Exam Date: 09/04/2022 : 1990 Gender:F Ordering : DR SADI JEWELL M.D. Admission #: [id number] Family : Order #: [id number] CLICK HERE TO VIEW EXAM RADIOLOGY REPORT [...] M.D. on 09/04/2022 at 12:00 Normal [facility] Covid-19 PCR (CVDTBH)on SARS-CoV-2 (COVID-19) RNA BORIS+probe Ql (Unsp spec) Not detected Normal NOT DETECTED [facility] Comment on above: Result Comment: This test is not yet approved or cleared by the [place] FDA. When there are no FDA-approved or cleared tests available, and other criteria are met, FDA can make tests available under an emergency access mechanism called an Emergency Use Authorization (EUA). The EUA for this test is supported by the Environmental Lawyer of Health and Human Service's (HHS's) declaration [...] SARS-CoV-2. Performed By: #### T SH #### [facility] [address] [place] [address] Dr. Zuly Aparicio INFLUENZA A AND B AGon 08-27 INFLUANEGH SEE BELOW Normal [facility] Comment on above: Result Comment: Nega tive for Flu A protein angiten. Infection due to Flu A cannot be ruled out. Flu A angiten in the sample may be below the detection limit of the test. Performed By: #### T SH #### [facility] [address] [place] [address] Dr. Zuly Aparicio INFLUBNEGH SEE BELOW Normal [facility] Comment on above: Result Comment: Nega tive for Flu B protein antigen. Infection due to Flu B cannot be ruled out. Flu B antigen in the sample may be below the detection limit of the test. Performed By: #### T SH #### [facility] [address] [place] [address] Dr. Zuly Aparicio INFLUENZA A AG Negative Normal NEGATIVE SEE COMMENT [facility] Comment on above: Performed By: #### T SH #### [facility] [address] [place] [address] Dr. Zuly Aparicio INFLUENZA B AG Negative Normal NEGATIVE SEE COMMENT [facility] Comment on above: Performed By: #### T SH #### [facility] [address] [place] [address] Dr. Zuly Aparicio SYMPTOMATIC COVID-19 ANTIGEN on 08-27-2022 EUA Statement SEE BELOW Normal [facility] Comment on above: Result Comment: [...] sooner. Performed By: #### C VDAGS #### [facility] [address] [place] [address] Dr. Zuly Aparicio SARS-CoV-2 (COVID-19) RNA BORIS+probe Ql (Unsp spec) Negative Normal NEGATIVE [facility] Comment on above: Performed By: #### C VDAGS #### [facility] [address] [place] [address] Dr. Zuly Aparicio XR CHEST 1 Von [...] JOSE WOOD Date: 2022-08-27 17:17 Normal [facility] VC CONSULT FOLLOWUPon 2022 VC CONSULT FOLLOWUP Patient: TORIE JOHNSTON Exam Date: 08/21/2022 : 1990 Gender:F Ordering : DR SADI JEWELL M.D. Admission #: [id number] Family : Order #: [id number] CLICK HERE TO VIEW EXAM RADIOLOGY REPORT [...] Sadi Jewell MD on 08/21/2022 at 11:18 [facility] VC EXT VENOUS RT LIMITEDon 0 08-21-2022 VC EXT VENOUS RT LIMITED Patient: TORIE JOHNSTON Exam Date: 08/21/2022 : 1990 Gender:F Ordering : DR SAID JEWELL M.D. Admission #: [id number] Family : Order #: [id number] CLICK HERE TO VIEW EXAM RADIOLOGY REPORT [...] Sadi Jewell MD on 08/21/2022 at 09:43 [facility] VC INJ FOAM SCLERO W US MLTI on 08-16-2022 VC INJ FOAM SCLERO W US MLTI Patient: TORIE JOHNSTON Exam Date: 08/16/2022 : 1990 Gender:F Ordering : DR SADI JEWELL M.D. Admission #: [id number] Family : Order #: [id number] CLICK HERE TO VIEW EXAM RADIOLOGY REPORT [...] M.D. on 08/16/2022 at 11:58 [facility] W MANUAL DIFFon 05-16- 22 ATYPICAL LYMPH # 0.32 103/ul Normal [facility] Comment on above: Performed By: #### T SH #### [facility] [address] [place] [address] Dr. Zuly Aparicio ATYPICAL LYMPH % 3 % Normal [facility] Comment on above: Performed By: #### T SH #### [facility] [address] [place] [address] [address] Zuly Aparicio BAND # 0.0 103/ul Normal 0.0-0.3 [facility] Comment on above: Performed By: #### T SH #### [facility] [address] [place] [address] Dr. Zuly Aparicio BAND % 0 % Normal 0-5 [facility] Comment on above: Performed By: #### T SH #### [facility] [address] [place] [address] Dr. Zuly Aparicio BASOM # 0.00 103/ul Normal 0.00-0.10 [facility] Comment on above: Performed By: #### T SH #### [facility] [address] [place] [address] Dr. Zuly Aparicio BASOM % 0.0 % Critically low 0.2-2.0 [facility] Comment on above: Performed By: #### T SH #### [facility] [address] [place] [address] Dr. Zuly Aparicio BLAST # Normal [facility] Comment on above: Performed By: #### T SH #### [facility] [address] [place] [address] Dr. Zuly Aparicio BLAST % Normal [facility] Comment on above: Performed By: #### T SH #### [facility] [address] [place] [address] Dr. Zuly Aparicio CORRECTED WBC Normal 4.0-11.0 [facility] Comment on above: Performed By: #### T SH #### [facility] [address] [place] [address] Dr. Zuly Aparicio EOS # 0.10 103/ul Normal 0.00-0.70 [facility] Comment on above: Performed By: #### T SH #### [facility] [address] [place] [address] [address] Zuly Aparicio EOS% 1.0 % Normal 0.9-7.0 [facility] Comment on above: Performed By: #### T SH #### [facility] [address] [place] [address] [address] Zuly Aparicio HCT 34.3 % Critically low 36.0-48.0 [facility] Comment on above: Performed By: #### T SH #### [facility] [address] [place] [address] [address] Zuly Aparicio HGB 10.6 g/dl Critically low 12.0-16.0 [facility] Comment on above: Performed By: #### T SH #### [facility] [address] [place] [address] Dr. Zuly Aparicio LYMPHM # 0.32 103/ul Critically low 1.20-3.80 [facility] Comment on above: Performed By: #### T SH #### [facility] [address] [place] [address] [address] Zuly Aparicio LYMPHM% 3.0 % Critically low 20.5-60.0 [facility] Comment on above: Performed By: #### T SH #### [facility] [address] [place] [address] [address] Zuly Aparicio MCH 18.2 pg Critically low 26.7-34.0 [facility] Comment on above: Performed By: #### T SH #### [facility] [address] [place] [address] [address] Zuly Aparicio MCHC 30.9 g/dl Normal 29.9-35.2 [facility] Comment on above: Performed By: #### T SH #### [facility] [address] [place] [address] Dr. Zuly Aparicio MCV 59.0 fL Critically low 81.0-99.0 [facility] Comment on above: Performed By: #### T SH #### [facility] [address] [place] [address] Dr. Zuly Aparicio METAMYELOCYTE # Normal [facility] Comment on above: Performed By: #### T SH #### [facility] [address] [place] [address] Dr. Zuly Aparicio METAMYELOCYTE % Normal [facility] Comment on above: Performed By: #### T SH #### [facility] [address] [place] [address] Dr. Zuly Aparicio MICROCYTOSIS 3+ Normal [facility] Comment on above: Performed By: #### T SH #### [facility] [address] [place] [address] Dr. Zuly Aparicio MONOM# 0.32 103/ul Normal 0.30-0.80 [facility] Comment on above: Performed By: #### T SH #### [facility] [address] [place] [address] Dr. Zuly Aparicio MONOM% 3.0 % Normal 1.7-12.0 [facility] Comment on above: Performed By: #### T SH #### [facility] [address] [place] [address] Dr. Zuly Aparicio MPV 10.6 fL Normal 9.5-13.5 [facility] Comment on above: Performed By: #### T SH #### [facility] [address] [place] [address] Dr. Zuly Aparicio MYELOCYTE # Normal [facility] Comment on above: Performed By: #### T SH #### [facility] [address] [place] [address] Dr. Zuly Aparicio MYELOCYTE % Normal [facility] Comment on above: Performed By: #### T SH #### [facility] [address] [place] [address] Dr. Zuly Aparicio NRBC Normal [facility] Comment on above: Performed By: #### T SH #### [facility] [address] [place] [address] Dr. Zuly Aparicio OVALOCYTES SLIGHT Normal [facility] Comment on above: Performed By: #### T SH #### [facility] [address] [address] [address] Zuly Aparicio PLT 290 103/ul Normal 150-450 [facility] Comment on above: Performed By: #### T SH #### [facility] [address] [address] [address] Zuly Aparicio RBC 5.81 106/ul Critically high 4.20-5.40 [facility] Comment on above: Performed By: #### T SH #### [facility] [address] [address] [address] Zuly Aparicio RDW 15.4 % Critically high 11.0-15.0 [facility] Comment on above: Performed By: #### T SH #### [facility] [address] [address] [address] Zuly Aparicio SEG # 9.45 103/ul Critically high 1.40-6.50 [facility] Comment on above: Performed By: #### T SH #### [facility] [address] [address] [address] Zuly Aparicio SEG % 90.0 % Critically high 43.0-75.0 [facility] Comment on above: Performed By: #### T SH #### [facility] [address] [address] [address] Zuly Aparicio TOXIC GRANULATION SLIGHT Normal [facility] Comment on above: Performed By: #### T SH #### [facility] [address] [address] [address] Zuly Aparicio WBC 10.5 103/ul Normal 4.0-11.0 [facility] Comment on above: Performed By: #### T SH #### [facility] [address] [address] [address] Zuly Aparicio CULTURE URINEon 05-16-2022 CULTURE URINE Culture Observations : LIGHT GROWTH OF MIXED GENITAL JI. NO POTENTIAL PATHOGENS SEEN. Normal [facility] Comment on above: Performed By: #### U RCX ####[facility] [address] [place] [address]Dr. Zuly Aparicio Covid-19 PCR (CVDTBH)on 04-27 SARS-CoV-2 (COVID-19) RNA BORIS+probe Ql (Unsp spec) Not detected Normal NOT DETECTED [facility] Comment on above: Result Comment: This test is not yet approved or cleared by the [place] FDA. When there are no FDA-approved or cleared tests available, and other criteria are met, FDA can make tests available under an emergency access mechanism called an Emergency Use Authorization (EUA). The EUA for this test is supported by the Environmental Lawyer of Health and Human Service's (HHS's) declaration [...] SARS-CoV-2. Performed By: #### T SH #### [facility] [address] [place] [address] Dr. Zuly Aparicio ER URINE PROFILEon 2 Bilirubin Ql (U) Negative Normal NEGATIVE [facility] Comment on above: Performed By: #### T SH #### [facility] [address] [place] [address] Dr. Zuly Aparicio Clarity (U) CLEAR Normal CLEAR [facility] Comment on above: Performed By: #### T SH #### [facility] [address] [place] [address] Dr. Zuly Aparicio Color (U) YELLOW Normal YELLOW [facility] Comment on above: Performed By: #### T SH #### [facility] [address] [place] [address] Dr. Zuly JUDD A micrscopic examination will be performed if indicated. Normal [facility] Comment on above: Performed By: #### T SH #### [facility] [address] [place] [address] Dr. Zuly Aparicio Glucose Ql (U) Negative Normal NEGATIVE [facility] Comment on above: Performed By: #### T SH #### [facility] [address] [place] [address] Dr. Zuly Aparicio Hemoglobin Ql (U) Negative Normal NEGATIVE [facility] Comment on above: Performed By: #### T SH #### [facility] [address] [place] [address] Dr. Zuly Aparicio Ketones Ql (U) TRACE Abnormal NEGATIVE [facility] Comment on above: Performed By: #### T SH #### [facility] [address] [place] [address] Dr. Zuly Aparicio LEUKOCYTES TRACE Abnormal NEGATIVE [facility] Comment on above: Performed By: #### T SH #### [facility] [address] [place] [address] Dr. Zuly Aparicio Nitrite Ql (U) Negative Normal NEGATIVE [facility] Comment on above: Performed By: #### T SH #### [facility] [address] [place] [address] Dr. Zuly Aparicio pH (U) 5.5 [pH] Normal 5-9 [facility] [facility] Comment on above: Performed By: #### T SH #### [facility] [address] [place] [address] Dr. Zuly Aparicio SPEC GRAVITY 1.020 Normal 1.005-<=1.02 5 [facility] Comment on above: Performed By: #### T SH #### [facility] [address] [place] [address] Dr. Zuly Aparicio UA PROTEIN Negative Normal NEGATIVE/ TRACE [facility] Comment on above: Performed By: #### T SH #### [facility] [address] [place] [address] Dr. Zuly Aparicio UR MICRO IND INDICATED Normal [facility] Comment on above: Performed By: #### T SH #### [facility] [address] [place] [address] Dr. Zuly Aparicio Urobilinogen Qn (U) 1.0 {Isamar'U}/dL Normal 0.2 - 1. 0 [facility] Comment on above: Performed By: #### T SH #### [facility] [address] [address] [address] Zuly Aparicio INFLUENZA A AND B AGon 05-16 INFLUENZA A AG Negative Normal NEGATIVE SEE COMMENT [facility] Comment on above: Performed By: #### I NFLUAB #### [facility] [address] [address] [address] Zuly Aparicio INFLUENZA B AG Negative Normal NEGATIVE SEE COMMENT [facility] Comment on above: Performed By: #### I NFLUAB #### [facility] [address] [address] [address] Zuly Aparicio INTERNAL CONTROLS Within Normal Limits Normal Wi thin Normal Limits [facility] Comment on above: Performed By: #### I NFLUAB #### [facility] [address] [address] [address] Zuly Aparicio PREG HCG QUALon 05-16-2022 , QUAL Negative Normal NEGATIVE [facility] Comment on above: Performed By: #### T SH #### [facility] [address] [address] [address] Zuly Aparicio PROF 14(COMP METB)on 022 Albumin [Mass/Vol] 3.6 g/dL Normal 3.4-5.0 [facility] Comment on above: Performed By: #### C MP #### [facility] [address] [place] [address] Dr. Zuly Aparicio Albumin/Globulin [Mass ratio] 0.9 {ratio} Normal [facility] Comment on above: Performed By: #### C MP #### [facility] [address] [place] [address] Dr. Zuly Aparicio ALP [Catalytic activity/Vol] 88 U/L Normal 46-116 [facility] Comment on above: Performed By: #### C MP #### [facility] [address] [place] [address] Dr. Zuly Aparicio ALT [Catalytic activity/Vol] 52 U/L Normal 14-59 [facility] Comment on above: Performed By: #### C MP #### [facility] [address] [address] [address] Zuly Aparicio Anion gap [Moles/Vol] 13.4 mmol/L Normal [facility] Comment on above: Performed By: #### C MP #### [facility] [address] [address] [address] Zuly Aparicio AST [Catalytic activity/Vol] 29 U/L Normal 15-37 [facility] Comment on above: Performed By: #### C MP #### [facility] [address] [place] [address] Dr. Zuly Aparicio Bilirubin [Mass/Vol] 1.2 mg/dL Critically high 0.2-1.0 [facility] Comment on above: Performed By: #### C MP #### [facility] [address] [place] [address] Dr. Zuly Aparicio Calcium [Mass/Vol] 8.7 mg/dL Normal 8.5-10.1 [facility] Comment on above: Performed By: #### C MP #### [facility] [address] [place] [address] Dr. Zuly Aparicio Chloride [Moles/Vol] 101 mmol/L Normal 98-107 [facility] Comment on above: Performed By: #### C MP #### [facility] [address] [place] [address] Dr. Zuly Aparicio CO2 [Moles/Vol] 25.5 mmol/L Normal 21.0-32.0 [facility] Comment on above: Performed By: #### C MP #### [facility] [address] [place] [address] Dr. Zuly Aparicio Creatinine [Mass/Vol] 1.07 mg/dL Critically high 0.55-1.02 [facility] Comment on above: Performed By: #### C MP #### [facility] [address] [place] [address] Dr. Zuly Aparicio EGFR-AF GABONESE >60 Normal >=60 [facility] Comment on above: Performed By: #### C MP #### [facility] [address] [place] [address] Dr. Zuly Aparicio EGFR-NON AF GABONESE 59 mL/min/1.73m2 Critically low >=60 [facility] Comment on above: Performed By: #### C MP #### [facility] [address] [address] [address] Zuly Aparicio Globulin (S) [Mass/Vol] 4.0 g/dL Normal [facility] Comment on above: Performed By: #### C MP #### [facility] [address] [address] [address] Zuly Aparicio Glucose [Mass/Vol] 111 mg/dL Critically high 74-106 [facility] Comment on above: Performed By: #### C MP #### [facility] [address] [place] [address] Dr. Zuly Aparicio Potassium [Moles/Vol] 3.9 mmol/L Normal 3.5-5.1 [facility] Comment on above: Performed By: #### C MP #### [facility] [address] [address] [address] Zuly Aparicio Protein [Mass/Vol] 7.6 g/dL Normal 6.4-8.2 [facility] Comment on above: Performed By: #### C MP #### [facility] [address] [place] [address] Dr. Zuly Aparicio Sodium [Moles/Vol] 136 mmol/L Normal 136-145 [facility] Comment on above: Performed By: #### C MP #### [facility] [address] [address] [address] Zuly Aparicio Urea nitrogen [Mass/Vol] 11.0 mg/dL Normal 7.0-18.0 [facility] Comment on above: Performed By: #### C MP #### [facility] [address] [place] [address] Dr. Zuly Aparicio Urea nitrogen/Creatinine [Mass ratio] 10.3 mg/mg Normal [facility] Comment on above: Performed By: #### C MP #### [facility] [address] [place] [address] Dr. Zuly Aparicio STREPT SCREENon 05-16-2022 STREP SCREEN A Positive Abnormal NEGATIVE [facility] Comment on above: Performed By: #### E CHAYITO HOOPERRO #### [facility] [address] [place] [address] Dr. Zuly Aparicio URINE MICROSCOPIC ONLYon BACTERIA MODERATE Abnormal NONE SEEN [facility] Comment on above: Performed By: #### T SH #### [facility] [address] [place] [address] Dr. Zuly Aparicio Bacteria identified Cx Nom (U) INDICATED Normal [facility] Comment on above: Performed By: #### T SH #### [facility] [address] [place] [address] Dr. Zuly Aparicio CAST NONE SEEN Normal NONE SEEN [facility] Comment on above: Performed By: #### T SH #### [facility] [address] [place] [address] Dr. Zuly Aparicio Crystals LM Nom (Urine sed) NONE SEEN Normal NONE SEEN [facility] Comment on above: Performed By: #### T SH #### [facility] [address] [place] [address] Dr. Zuly Aparicio Epithelial cells LM Ql (Urine sed) MANY Abnormal NONE SEEN /RARE [facility] Comment on above: Performed By: #### T SH #### [facility] [address] [place] [address] Dr. Zuly Aparicio MUCOUS NONE SEEN Normal NONE SEEN [facility] Comment on above: Performed By: #### T SH #### [facility] [address] [place] [address] Dr. Zuly Aparicio RBC 2-5 Abnormal 0-2 [facility] Comment on above: Performed By: #### T SH #### [facility] [address] [place] [address] Dr. Zuly Aparicio WBC 5-10 Abnormal NONE SEEN [facility] Comment on above: Performed By: #### T SH #### [facility] [address] [place] [address] Dr. Zuly Aparicio XR CHEST 1 Von [...] PAKO JERRY Date: 2022-05-16 05:03 Normal [facility] AMYLASEon 04-19-2022 Amylase [Catalytic activity/Vol] 41 U/L Normal 25-115 [facility] Comment on above: Performed By: #### L IPA, ANA #### [facility] [address] [place], [place] [address] Dr. Zuly Aparicio CBC AUTO DIFFon 04-19-2022 BASO # 0.0 103/ul Normal 0.0-0.1 [facility] Comment on above: Performed By: #### C BC ####[facility] [address] [id number]. Zuly pAaricio Basophils/100 WBC (Bld) 0.4 % Normal 0.2-2.0 [facility] Comment on above: Performed By: #### C BC ####[facility] [address] [id number]. Zuly Aparicio EO # 0.2 103/ul Normal 0.0-0.7 [facility] Comment on above: Performed By: #### C BC ####[facility] [address] [id number]. Zuly Aparicio Eosinophils/100 WBC (Bld) 3.2 % Normal 0.9-7.0 [facility] Comment on above: Performed By: #### C BC ####[facility] [address] [id number] Aparicio Erythrocyte distribution width (RBC) [Ratio] 15.7 % Critically high 11.0-15.0 [facility] Comment on above: Performed By: #### C BC ####[facility] [address] [id number]. Zuly Aparicio Hematocrit (Bld) [Volume fraction] 33.1 % Critically low 36.0-48.0 [facility] Comment on above: Performed By: #### C BC ####[facility] [address] [address]Dr. Zuly Aparicio Hemoglobin (Bld) [Mass/Vol] 10.3 g/dL Critically low 12.0-16.0 [facility] Comment on above: Performed By: #### C BC ####[facility] [address] [address]Dr. Lolacuauhtemoc Markus IG # 0.01 10e3/ul Normal 0.00-0.03 [facility] Comment on above: Performed By: #### C BC ####[facility] [address] [place], [place] [address]Dr. Zuly Aparicio IG % 0.2 % Normal 0.0-0.5 [facility] Comment on above: Performed By: #### C BC ####[facility] [address] [place], [place] [address]Dr. Zuly Aparicio LYMPH # 1.8 103/ul Normal 1.2-3.8 [facility] Comment on above: Performed By: #### C BC ####[facility] [address] [place], [place] [address]Dr. Zuly Aparicio Lymphocytes/100 WBC (Bld) 34.5 % Normal 20.5-60.0 [facility] Comment on above: Performed By: #### C BC ####[facility] [address] [place], [place] [address]Dr. Zuly Aparicio MANUAL DIFF REQ NO Normal [facility] Comment on above: Performed By: #### C BC ####[facility] [address] [place], [place] [address]Dr. Zuly Aparicio MCH (RBC) [Entitic mass] 18.5 pg Critically low 26.7-34.0 [facility] Comment on above: Performed By: #### C BC ####[facility] [address] [place], [place] [address]Dr. Zuly Aparicio MCHC (RBC) [Mass/Vol] 31.1 g/dL Normal 29.9-35.2 [facility] Comment on above: Performed By: #### C BC ####[facility] [address] [id number]. Zuly Aparicio MCV (RBC) [Entitic vol] 59.3 fL Critically low 81.0-99.0 [facility] Comment on above: Performed By: #### C BC ####[facility] [address] [address]Dr. Zuly Markus MONO # 0.3 103/ul Normal 0.3-0.8 [facility] Comment on above: Performed By: #### C BC ####[facility] [address] [address]Dr. Lolacuauhtemoc Aparicio Monocytes/100 WBC (Bld) 5.9 % Normal 1.7-12.0 [facility] Comment on above: Performed By: #### C BC ####[facility] [address] [place], [place] [address]Dr. Zuly Aparicio NEUT # 2.9 103/ul Normal 1.4-6.5 [facility] Comment on above: Performed By: #### C BC ####[facility] [address] [place], [place] [address]Dr. Lolacuauhtemoc Aparicio Neutrophils/100 WBC (Bld) 55.8 % Normal 43.0-75.0 [facility] Comment on above: Performed By: #### C BC ####[facility] [address] [place], [place] [address]Dr. Lolacuauhtemoc Aparicio Platelet mean volume (Bld) [Entitic vol] 10.1 fL Normal 9.5-13.5 [facility] Comment on above: Performed By: #### C BC ####[facility] [address] [place], [place] [address]Dr. Zuly Aparicio PLT 341 103/ul Normal 150-450 [facility] Comment on above: Performed By: #### C BC ####[facility] [address] [id number]. Zuly Aparicio RBC 5.58 106/ul Critically high 4.20-5.40 [facility] Comment on above: Performed By: #### C BC ####[facility] [address] [place], [place] [address]DcNikia Aparicio WBC 5.3 103/ul Normal 4.0-11.0 [facility] Comment on above: Performed By: #### C BC ####[facility] [address] [place], [place] [address]. [address] ABD/PELVIS WO CONon 04-19 [...] JOSEDANI RICKETTS Date: 2022-04-19 21:52 Normal [facility] ER URINE PROFILEon 2 Bilirubin Ql (U) Negative Normal NEGATIVE [facility] Comment on above: Performed By: #### E RUR, PREGU ####[facility] [address] [place], [place] [address]Dr. Yilan Aparicio Clarity (U) CLEAR Normal CLEAR [facility] Comment on above: Performed By: #### E RUR, PREGU ####[facility] [address] [place], [place] [address]Dr. Yilan Aparicio Color (U) LT. YELLOW Normal YELLOW [facility] Comment on above: Performed By: #### E RUR, PREGU ####[facility] [address] [place], [place] [address]Dr. Yilan Aparicio ERUAHD A micrscopic examination will be performed if indicated. Normal [facility] Comment on above: Performed By: #### E RUR, PREGU ####[facility] [address] [place], [place] [address]Dr. Yilan Aparicio Glucose Ql (U) Negative Normal NEGATIVE [facility] Comment on above: Performed By: #### E RUR, PREGU ####[facility] [address] [place], [place] [address]Dr. Yilan Aparicio Hemoglobin Ql (U) Negative Normal NEGATIVE [facility] Comment on above: Performed By: #### E RUR, PREGU ####[facility] [address] [place], [place] [address]Dr. Yilan Aparicio Ketones Ql (U) Negative Normal NEGATIVE [facility] Comment on above: Performed By: #### E RUR, PREGU ####[facility] [address] [place], [place] [address]Dr. Yilan Aparicio LEUKOCYTES Negative Normal NEGATIVE [facility] Comment on above: Performed By: #### E RUR, PREGU ####[facility] [address] [place], [place] [address]Dr. Yilan Aparicio Nitrite Ql (U) Negative Normal NEGATIVE [facility] Comment on above: Performed By: #### E RUR, PREGU ####[facility] [address] [address]DrNikia Aparicio pH (U) 6.0 [pH] Normal 5-9 [facility] Comment on above: Performed By: #### E RUR, PREGU ####[facility] [address] [address]Dr. Zluy Aparicio SPEC GRAVITY 1.010 Normal 1.005-<=1.02 5 [facility] Comment on above: Performed By: #### E RUR, PREGU ####[facility] [address] [address]DrNikia Aparicio UA PROTEIN Negative Normal NEGATIVE/ TRACE [facility] Comment on above: Performed By: #### E RUR, PREGU ####[facility] [address] [place], [place] [address]Dr. Zuly Aparicio UR MICRO IND NOT INDICATED Normal [facility] Comment on above: Performed By: #### E RUR, PREGU ####[facility] [address] [place], [place] [address]DrNikia Aparicio Urobilinogen Qn (U) 0.2 {Isamar'U}/dL Normal 0.2 - 1. 0 [facility] Comment on above: Performed By: #### E RUR, PREGU ####[facility] [address] [place], [place] [address]DrNikia Aparicio LIPASEon 04-19-2022 Lipase [Catalytic activity/Vol] 161.0 U/L Normal 73.0-393.0 [facility] Comment on above: Performed By: #### L IPA, ANA #### [facility] [address] [address] [address] Zuly Aparicio URon 04-19-2022 , QUAL Negative Normal NEGATIVE [facility] Comment on above: Performed By: #### E RUR, PREGU ####[facility] [address] [place], [place] [address]Dr. Zuly Aparicio PROF 14(COMP METB)on 04-19- 022 Albumin [Mass/Vol] 3.9 g/dL Normal 3.4-5.0 [facility] Comment on above: Performed By: #### T SH #### [facility] [address] [place] [address] Dr. Zuly Aparicio Albumin/Globulin [Mass ratio] 1.1 {ratio} Normal [facility] Comment on above: Performed By: #### T SH #### [facility] [address] [place] [address] Dr. Zuly Aparicio ALP [Catalytic activity/Vol] 69 U/L Normal 46-116 [facility] Comment on above: Performed By: #### T SH #### [facility] [address] [place] [address] Dr. Zuly Aparicio ALT [Catalytic activity/Vol] 46 U/L Normal 14-59 [facility] Comment on above: Performed By: #### T SH #### [facility] [address] [place] [address] Dr. Zuly Aparicio Anion gap [Moles/Vol] 12.1 mmol/L Normal [facility] Comment on above: Performed By: #### T SH #### [facility] [address] [place] [address] Dr. Zuly Aparicio AST [Catalytic activity/Vol] 24 U/L Normal 15-37 [facility] Comment on above: Performed By: #### T SH #### [facility] [address] [place] [address] Dr. Zuly Aparicio Bilirubin [Mass/Vol] 0.5 mg/dL Normal 0.2-1.0 [facility] Comment on above: Performed By: #### T SH #### [facility] [address] [place] [address] Dr. Zuly Aparicio Calcium [Mass/Vol] 8.7 mg/dL Normal 8.5-10.1 [facility] Comment on above: Performed By: #### T SH #### [facility] [address] [place] [address] Dr. Zuly Aparicio Chloride [Moles/Vol] 106 mmol/L Normal 98-107 [facility] Comment on above: Performed By: #### T SH #### [facility] [address] [place] [address] Dr. Zuly Aparicio CO2 [Moles/Vol] 25.4 mmol/L Normal 21.0-32.0 [facility] Comment on above: Performed By: #### T SH #### [facility] [address] [address] [address] Zuly Aparicio Creatinine [Mass/Vol] 1.11 mg/dL Critically high 0.55-1.02 [facility] Comment on above: Performed By: #### T SH #### [facility] [address] [place] [address] Dr. Zuly Aparicio EGFR-AF GABONESE >60 Normal >=60 [facility] Comment on above: Performed By: #### T SH #### [facility] [address] [place] [address] Dr. Zuly Aparicio EGFR-NON AF GABONESE 57 mL/min/1.73m2 Critically low >=60 [facility] Comment on above: Performed By: #### T SH #### [facility] [address] [place] [address] Dr. Zuly Aparicio Globulin (S) [Mass/Vol] 3.5 g/dL Normal [facility] Comment on above: Performed By: #### T SH #### [facility] [address] [place] [address] Dr. Zuly Aparicio Glucose [Mass/Vol] 96 mg/dL Normal 74-106 [facility] Comment on above: Performed By: #### T SH #### [facility] [address] [place] [address] Dr. Zuly Aparicio Potassium [Moles/Vol] 3.5 mmol/L Normal 3.5-5.1 [facility] Comment on above: Performed By: #### T SH #### [facility] [address] [place] [address] Dr. Zuly Aparicio Protein [Mass/Vol] 7.4 g/dL Normal 6.4-8.2 [facility] Comment on above: Performed By: #### T SH #### [facility] [address] [place] [address] Dr. Zuly Aparicio Sodium [Moles/Vol] 140 mmol/L Normal 136-145 [facility] Comment on above: Performed By: #### T SH #### [facility] [address] [place] [address] Dr. Zuly Aparicio Urea nitrogen [Mass/Vol] 12.0 mg/dL Normal 7.0-18.0 [facility] Comment on above: Performed By: #### T SH #### [facility] [address] [place] [address] Dr. Zuly Aparicio Urea nitrogen/Creatinine [Mass ratio] 10.8 mg/mg Normal [facility] Comment on above: Performed By: #### T SH #### [facility] [address] [place] [address] Dr. Zuly Aparicio CBC AUTO DIFFon 12-20-2021 BASO # 0.0 103/ul Normal 0.0-0.1 [facility] Comment on above: Performed By: #### T SH #### [facility] [address] [place] [address] Dr. Zuly Aparicio Basophils/100 WBC (Bld) 0.1 % Critically low 0.2-2.0 [facility] Comment on above: Performed By: #### T SH #### [facility] [address] [place] [address] Dr. Zuly Aparicio EO # 0.1 103/ul Normal 0.0-0.7 [facility] Comment on above: Performed By: #### T SH #### [facility] [address] [place] [address] Dr. Zuly Aparicio Eosinophils/100 WBC (Bld) 1.1 % Normal 0.9-7.0 [facility] Comment on above: Performed By: #### T SH #### [facility] [address] [place] [address] Dr. Zuly Aparicio Erythrocyte distribution width (RBC) [Ratio] 15.9 % Critically high 11.0-15.0 [facility] Comment on above: Performed By: #### T SH #### [facility] [address] [place] [address] Dr. Zuly Aparicio Hematocrit (Bld) [Volume fraction] 35.2 % Critically low 36.0-48.0 [facility] Comment on above: Performed By: #### T SH #### [facility] [address] [place] [address] Dr. Zuly Aparicio Hemoglobin (Bld) [Mass/Vol] 10.9 g/dL Critically low 12.0-16.0 [facility] Comment on above: Performed By: #### T SH #### [facility] [address] [place] [address] Dr. Zuly Aparicio IG # 0.02 10e3/ul Normal 0.00-0.03 [facility] Comment on above: Performed By: #### T SH #### [facility] [address] [place] [address] Dr. Zuly Aparicio IG % 0.3 % Normal 0.0-0.5 [facility] Comment on above: Performed By: #### T SH #### [facility] [address] [place] [address] Dr. Zuly Aparicio LYMPH # 2.0 103/ul Normal 1.2-3.8 [facility] Comment on above: Performed By: #### T SH #### [facility] [address] [place] [address] Dr. Zuly Aparicio Lymphocytes/100 WBC (Bld) 28.0 % Normal 20.5-60.0 [facility] Comment on above: Performed By: #### T SH #### [facility] [address] [place] [address] Dr. Zuly Aparicio MANUAL DIFF REQ NO Normal [facility] Comment on above: Performed By: #### T SH #### [facility] [address] [place] [address] Dr. Zuly Aparicio MCH (RBC) [Entitic mass] 18.4 pg Critically low 26.7-34.0 [facility] Comment on above: Performed By: #### T SH #### [facility] [address] [place] [address] Dr. Zuly Aparicio MCHC (RBC) [Mass/Vol] 31.0 g/dL Normal 29.9-35.2 [facility] Comment on above: Performed By: #### T SH #### [facility] [address] [place] [address] Dr. Zuly Aparicio MCV (RBC) [Entitic vol] 59.3 fL Critically low 81.0-99.0 [facility] Comment on above: Performed By: #### T SH #### [facility] [address] [place] [address] Dr. Zuly Aparicio MONO # 0.4 103/ul Normal 0.3-0.8 [facility] Comment on above: Performed By: #### T SH #### [facility] [address] [place] [address] Dr. Zuly Aparicio Monocytes/100 WBC (Bld) 4.8 % Normal 1.7-12.0 [facility] Comment on above: Performed By: #### T SH #### [facility] [address] [place] [address] Dr. Zuly Aparicio NEUT # 4.7 103/ul Normal 1.4-6.5 [facility] Comment on above: Performed By: #### T SH #### [facility] [address] [place] [address] Dr. Zuly Aparicio Neutrophils/100 WBC (Bld) 65.7 % Normal 43.0-75.0 [facility] Comment on above: Performed By: #### T SH #### [facility] [address] [place] [address] Dr. Zuly Aparicio Platelet mean volume (Bld) [Entitic vol] 10.2 fL Normal 9.5-13.5 [facility] Comment on above: Performed By: #### T SH #### [facility] [address] [place] [address] Dr. Zuly Aparicio PLT 338 103/ul Normal 150-450 [facility] Comment on above: Performed By: #### T SH #### [facility] [address] [place], [place] [address] Dr. Zuly Aparicio RBC 5.94 106/ul Critically high 4.20-5.40 [facility] Comment on above: Performed By: #### T SH #### [facility] [address] [place], [place] [address] Dr. Zuly Aparicio WBC 7.2 103/ul Normal 4.0-11.0 [facility] Comment on above: Performed By: #### T SH #### [facility] [address] [place], [place] [address] HEAD WO CONon [...] LEROY PRETTY Date: 2021-12-20 21:04 Normal [facility] CULTURE URINEon 12-20-2021 CULTURE URINE Culture Observations : LIGHT GROWTH OF MIXED GENITAL JI. NO POTENTIAL PATHOGENS SEEN. Normal [facility] Comment on above: Performed By: #### U RCX ####[facility] [id number] [place] [address]Dr. Zuly Aparicio ER URINE PROFILEon 2 Bilirubin Ql (U) Negative Normal NEGATIVE [facility] Comment on above: Performed By: #### TASHA ASHERICRO #### [facility] [address] [address] [address] Zuly Aparicio Clarity (U) CLEAR Normal CLEAR [facility] Comment on above: Performed By: #### Roshan HOOPER UMICRO #### [facility] [address] [place] [address] Dr. Zuly Aparicio Color (U) LT. YELLOW Normal YELLOW [facility] Comment on above: Performed By: #### TASHA ASHERICRO #### [facility] [address] [place] [address] Dr. Zuly JUDD A micrscopic examination will be performed if indicated. Normal [facility] Comment on above: Performed By: #### TASHA ASHERICRO #### [facility] [address] [place] [address] Dr. Zuly Aparicio Glucose Ql (U) Negative Normal NEGATIVE [facility] Comment on above: Performed By: #### TASHA ASHERICRO #### [facility] [address] [place] [address] Dr. Zuly Aparicio Hemoglobin Ql (U) LARGE Abnormal NEGATIVE [facility] Comment on above: Performed By: #### Roshan HOOPER UMICRO #### [facility] [address] [address] [address] Zuly Aparicio Ketones Ql (U) Negative Normal NEGATIVE [facility] Comment on above: Performed By: #### Roshan HOOPER UMICRO #### [facility] [address] [place] [address] Dr. Zuly Aparicio LEUKOCYTES Negative Normal NEGATIVE [facility] Comment on above: Performed By: #### Roshan HOOPER UMICRO #### [facility] [address] [place] [address] Dr. Zuly Aparicio Nitrite Ql (U) Negative Normal NEGATIVE [facility] Comment on above: Performed By: #### CHAYITO ASHERRO #### [facility] [address] [place] [address] Dr. Zuly Aparicio pH (U) 6.0 [pH] Normal 5-9 [facility] Comment on above: Performed By: #### CHAYITO ASHERRO #### [facility] [address] [place] [address] Dr. Zuly Aparicio SPEC GRAVITY 1.015 Normal 1.005-<=1.02 5 [facility] Comment on above: Performed By: #### CHAYITO ASHERRO #### [facility] [address] [place] [address] Dr. Zuly Aparicio UA PROTEIN Negative Normal NEGATIVE/ TRACE [facility] Comment on above: Performed By: #### CHAYITO ASHERRO #### [facility] [address] [place] [address] Dr. Zuly Aparicio UR MICRO IND INDICATED Normal [facility] Comment on above: Performed By: #### Roshan HOOPER FAVIOLARO #### [facility] [address] [place] [address] Dr. Zuly Aparicio Urobilinogen Qn (U) 1.0 {Isamar'U}/dL Normal 0.2 - 1. 0 [facility] Comment on above: Performed By: #### Roshan HOOPER FAVIOLARO #### [facility] [address] [place] [address] Dr. Zuly Aparicio PROF 14(COMP METB)on 022 Albumin [Mass/Vol] 4.1 g/dL Normal 3.4-5.0 [facility] Comment on above: Performed By: #### T SH #### [facility] [address] [place] [address] Dr. Zuly Aparicio Albumin/Globulin [Mass ratio] 1.1 {ratio} Normal [facility] Comment on above: Performed By: #### T SH #### [facility] [address] [place] [address] Dr. Zuly Aparicio ALP [Catalytic activity/Vol] 60 U/L Normal 46-116 [facility] Comment on above: Performed By: #### T SH #### [facility] [address] [place] [address] [address] Zuly Aparicio ALT [Catalytic activity/Vol] 52 U/L Normal 14-59 [facility] Comment on above: Performed By: #### T SH #### [facility] [address] [place] [address] Dr. Zuly Aparicio Anion gap [Moles/Vol] 11.4 mmol/L Normal [facility] Comment on above: Performed By: #### T SH #### [facility] [address] [place] [address] Dr. Zuly Aparicio AST [Catalytic activity/Vol] 25 U/L Normal 15-37 [facility] Comment on above: Performed By: #### T SH #### [facility] [address] [place] [address] Dr. Zuly Aparicio Bilirubin [Mass/Vol] 0.4 mg/dL Normal 0.2-1.0 [facility] Comment on above: Performed By: #### T SH #### [facility] [address] [place] [address] Dr. Zuly Aparicio Calcium [Mass/Vol] 8.7 mg/dL Normal 8.5-10.1 [facility] Comment on above: Performed By: #### T SH #### [facility] [address] [place] [address] Dr. Zuly Aparicio Chloride [Moles/Vol] 105 mmol/L Normal 98-107 [facility] Comment on above: Performed By: #### T SH #### [facility] [address] [place] [address] Dr. Zuly Aparicio CO2 [Moles/Vol] 26.3 mmol/L Normal 21.0-32.0 [facility] Comment on above: Performed By: #### T SH #### [facility] [address] [place] [address] Dr. Zuly Aparicio Creatinine [Mass/Vol] 1.06 mg/dL Critically high 0.55-1.02 [facility] Comment on above: Performed By: #### T SH #### [facility] [address] [place] [address] [address] Zuly Aparicio EGFR-AF GABONESE >60 Normal >=60 [facility] Comment on above: Performed By: #### T SH #### [facility] [address] [place] [address] [address] Zuly Aparicio EGFR-NON AF GABONESE =60 Normal >=60 [facility] Comment on above: Performed By: #### T SH #### [facility] [address] [place] [address] [address] Zuly Aparicio Globulin (S) [Mass/Vol] 3.6 g/dL Normal [facility] Comment on above: Performed By: #### T SH #### [facility] [address] [place] [address] Dr. Zuly Aparicio Glucose [Mass/Vol] 99 mg/dL Normal 74-106 [facility] Comment on above: Performed By: #### T SH #### [facility] [address] [place] [address] [address] Zuly Aparicio Potassium [Moles/Vol] 3.7 mmol/L Normal 3.5-5.1 [facility] Comment on above: Performed By: #### T SH #### [facility] [address] [place] [address] Dr. Zuly Aparicio Protein [Mass/Vol] 7.7 g/dL Normal 6.4-8.2 [facility] Comment on above: Performed By: #### T SH #### [facility] [address] [place] [address] Dr. Zuly Aparicio Sodium [Moles/Vol] 139 mmol/L Normal 136-145 [facility] Comment on above: Performed By: #### T SH #### [facility] [address] [place] [address] Dr. Zuly Aparicio Urea nitrogen [Mass/Vol] 17.0 mg/dL Normal 7.0-18.0 [facility] Comment on above: Performed By: #### T SH #### [facility] [address] [place] [address] Dr. Zuly Aparicio Urea nitrogen/Creatinine [Mass ratio] 16.0 mg/mg Normal [facility] Comment on above: Performed By: #### T SH #### [facility] [address] [place] [address] Dr. Zuly Aparicio TSHon 12-20-2021 TSH 3.279 uIU/mL Normal 0.358-3.740 [facility] Comment on above: Performed By: #### T SH #### [facility] [address] [place] [address] Dr. Zuly Aparicio URINE MICROSCOPIC ONLYon BACTERIA SMALL Abnormal NONE SEEN [facility] Comment on above: Performed By: #### Roshan HOOPER UMICRO #### [facility] [address] [place] [address] Dr. Zuly Aparicio Bacteria identified Cx Nom (U) INDICATED Normal [facility] Comment on above: Performed By: #### Roshan HOOPER UMICRO #### [facility] [address] [place] [address] Dr. Zuly Aparicio CAST NONE SEEN Normal NONE SEEN [facility] Comment on above: Performed By: #### Roshan HOOPER UMICRO #### [facility] [address] [place] [address] Dr. Zuly Aparicio Crystals LM Nom (Urine sed) NONE SEEN Normal NONE SEEN [facility] Comment on above: Performed By: #### Roshan HOOPER UMICRO #### [facility] [address] [place] [address] Dr. Zuly Aparicio Epithelial cells LM Ql (Urine sed) MANY Abnormal NONE SEEN /RARE [facility] Comment on above: Performed By: #### Roshan HOOPER UMICRO #### [facility] [address] [place] [address] Dr. Zuly Aparicio MUCOUS NONE SEEN Normal NONE SEEN [facility] Comment on above: Performed By: #### Roshan HOOPER UMICRO #### [facility] [address] [place] [address] Dr. Zuly Aparicio RBC 0-2 Normal 0-2 [facility] Comment on above: Performed By: #### JEFERSON ASHER #### [facility] [address] [place], [place] [address] Dr. Zuly Aparicio WBC 2-5 Abnormal NONE SEEN [facility] Comment on above: Performed By: #### JEFERSON ASHER #### [facility] [address] [place], [place] [address] Dr. Zuly Aparicio XR CHEST 1 Von [...] LUDY GARCIA Date: 2021-12-20 21:21 Normal [facility] Coding Summary.on 12-13-2021 Coding Summary. [id number] G h0bWw+PGhlYWQ+MZ7UFHV zV59jpQZmsQ6WW3bYBO2W JVZYSLXXOS9FBV6toDH5E YfvL1XdmjTj NgmjuVBrEU72YEu5ADC8z PavSRrhdC2jkENlJ6d5Ob MaUL20sU46DCglWNEtSxQ 3LjZpbjsgbWFy S5xuLbAhfHGfTiw+PHRhY mxlIHdpZHRoPScxMDAlJy JcjQmcLW8wZb3rHDHtAOL vbGxhcHNlOiBj c9fxAZEmTSfjHX7saLutC 5WbeZE8JPTar3q8Cy30kS I+IJGfHZX3pYdaRQixc58 6RrIhm8ysJVW9 zXJzOSsiJLP4O49nm3D1P OFfNGPgGMU6uTZ0dF6uzC nuqqmtY1OpyDGePvY1PEF 0aHWxfU3czJtx tqxuoA3bQlv+P07DWY0SU DCTGY5OJhi2N4KiVktchJ I+CR08PUIdGC51mLSvnMJ se4tiyTm2EaDc QGIoKDC3xQkzJPffg0XcB EVrB44qhLFzu5R1PRNagF qmnGRxJpRhrKE6dM3qMLy yrupya3ikjrsp Lhkwo4sgie66pV99U02dS DzjHUGsQAR8URWqNMAtsN hihg0gsN6zXn2+XOzxj1f mt3zaiFo5JlBv FPGjrrAqiYvwEOA1y0MqW g71L3DykUhhg4YjMtv4hv 92uXNma4U3rPF9SCklWMZ rpX6pXOzzHhK7 NSLrDjIekQ27xFZbAIzvE y8nkFdfuXbqTX1eIWYbkl miGCVluR9jSKDjcJRvxWs nWD5rXLUjbrru a365JrAoYPP0HDJqfNKtI 8LcvG8mWaFxJLHrPWRuI8 KocIIeQStpG898MIrgQtE 4EXLqxqAuE5Uv JTJbfLdxUwK3g3I8Sp7Ao 7RpwnufPPZ3INnrIXT2Um XpUsAeFvF7Q0MyRnj7NJX qrEblXA0mB4Jb FIFpxgqwjxvwkNF0CYXkB CBjlC60yHNqVQfcXc4xq9 O3j049WGAmSWQfxA06Qv2 udDogMTBwdCBU vW8mmmirf4rknlobBdWzG RMvSKv8MKa6JUDciGclKx KkDUZ4FaI0ETL9eIFcoN1 wkUjphgrxyA3f Oyc+R02vuM0xIAY9SSN9j ggqDJHfkiKmXJ80YW74G8 RyPjwvdGFibGU+PGRpdiB qqGmoCI8gWgZo i4umg2WlPMepH4GyHZYpK XkgWnh4IBAhGUV6rHQ7sA 2mJWQgGDygb6Q0nES6L9V kccCjnt5zl3bb SEMiDFbeE34ouXXrx2D3I HXupVC1DFIsfJuuQcCraR 93Oyc+NBMqlWnry9FbCbm up3dul8quqYy8 NqCmACKlmhJbiHluPEO6p 6AeFn46F20dSBrhGYKbEW ZoIKOeMWEhzWlqtu3cgG4 wIi8+PGNvbCB3 hDV8jC3kIAGmYuN1OSpeB 323VsOgaZQdVtxjs7ixw2 cuvRx4VuXkMFQmyjBldDl eNXV7n5DmHn24 H70hSPhfZQZlTCFvVMLxT RPggRaday3xrS7pQa4+PC 0zf0rvow67rV47cWT+PHR bCGI4dZgrHFtg ETBrgT6aLSbsNgH5VXJhL mGlsY04kBSoLArqBn8hcX btyTjdGD5gBIPdgehkv68 9NhLit7keDOTe hCXyQGkfCBC0F63uo6E8R WPoDXZrYZB6cLK7wO6pcE lnbjogbGVmdDsgdmVydGl tBRuwDFvnD959 IHRvcDsnPlBhdGllbnQgT kTaDTt0S0WiSxg0MLFrqC yxBO9ugEPrTJwuSk5yoJj vxAefVN7iUVUq hdcvp582XkLvz4hxURQkx CEgHJwgNLU0B59lg5U9GM ZwFMWlOSU0aVQ6jH0klCk nbjogbGVmdDsg rgRycJsxNIquYIszQ514Q HRvcDsnPkJpcnRoIERhdG W5RM94KM25mCOzw3A3iPE 0D0WbGLTjcnkc dbgusYU4TNIkYQZgrI22K q9keBeyBp2kJXVuYSB3YP VisOOnT9FexO5oVwOiGOB uHHLrX0DhxDEo FNjzC706UGixDeC2MJPjb zKbO5TbZGLolZivPiR8q4 V2Ml1SP9A0GX71HE52pIZ nn9T5iRW7L3Pl FPKeiplwcycuqBA5IFBpB SIkgQ62Ah8ruEfhQj9jRN XqAMV1TZVpfQIuW1BqbN9 yOiAjMDAwMDAw K2LmxBFcFKkiI453HZupH wM2PPZciqNfA8IlJARtpS oyImP5i6I1Cs4EPSa5XE2 1BO47fZEqu5D6 wHL3Q6ZqRYJjsyhubeego FI7VPRgPZNssN12Uf7fpZ vaFp3aRYRaNMA7KQNqhIC tE2OstE1cWtIo GKBtRQOmV9NtqSJiRJlcR 450RRydNnW2QUNygoViB0 RcWJKtyVkdWfO1g9I5Ex0 XNRXoSS76ENA9 vYE5JK50HG27K3SfGgjsz GFibGU+PHRhYmxlIHdpZH RoPScxMDAlJyBzdHlsZT0 kGp5uJSUlPFZd bLzifLSdPdLcq4efFZEsL NttLX6ksSqyL9LzbAF3QK Fqb4e4Up50E20iR3PgkDJ +HUBnaQF7fAQ2 wV9kWbKwNiD9RIqyM910K dHxzFCaHgdwo6vnm8fvlV w1ArI7MAAwbfZitJliABF 7r6NaIe18H41x IHdpZHRoPSIxNSUiIHZhb Oqkqf0gxW4zSz7+PGNvbC V8sSV4wB3lHiKrYxJ4BLn mX460OuUbyWAt Vusmv7ssh7wseDy2DiQeY XQobxNowKdeQCL5g9FfIp 39H6CfbStqn1OqPoq5ss3 9kFGvz8Y4sEE9 E1VpNDIybyrdoHPeeOrsH S1yJSUmveajGXPnkV6oDL DdT9d1ZkIzMtX2BAreQ7U oelD2YVDaoSGa KXxtHJN2R50bb1W6JYPwK CXmKSZ3xGJ7xD7riLspcm ogbGVmdDsgdmVydGljYWw xBSvgH242OAMz aAsnDBXphS8aKCZrvDZjf UesNA6iGBBabegtJjoLYn RTRVksIENIRUxTRVkgUjw vdGQ+PHRkIHN0 fFsuDDbbZEMulJ7rCUQoB 5s8XyTwEfK0FBqjN9TnKZ RzwsejAe47fU3mTjQcYzQ 4EXuuA3OjcxY7 KXHiiVPbUVyoKLJ1S98we 9V4UNUwSAEeZPU7zXX0rA 1hbGlnbjogbGVmdDsgdmV ydGljYWwtYWxp Q503MFEghKvlWaFxLqK5D iE7WCS8Y1EvAwt7CULliB lyCV3iySGdBIkrMx6dwGu yuQsaRU7cAZZh cgfwWSNggI8vGEEkwBIdz DzcXK3aISVyzbiyn482Lj ErZKZ1RVXlsZKkW8VurX1 yOiAjMDAwMDAw B4VxuXVxTZyyJ119LZvzT uJ0GCNivcVpX9RcFNWfkG lhDpM0d8G5Zn3iQeTCBVG yczwvdGQ+PHRk ZGK2eMxrGEkePBSqjB1vS JRmL5v4NjVxFpM3GMmyO5 TzBRAugdzxRf01eK9aGhK mWiU4HOrxB6Hd xeS2QWIdtUUpANnsAMB5T 03gs0P2KYIqHJStQLC7mN L5bX7ztQhybhrveIMbeGo gdmVydGljYWwt LZpaE050AVEfkMxxDuSwu WFsZTwvdGQ+QWShDJX5kP hoIRkkYQUjnP5uVKGrM9t 7UtOlKqS7TNva X9ChUDZrgxmsIq45mC5tO aFvMiP6CKceF7VyeeL6JZ JgjZFmEKhdTAT8U49ni7A 4MZDhTEUnDZG2 zSP8uQ5rbSjtlegvbWWje DsgdmVydGljYWwtYWxpZ2 53FCXgySqkHlJkBOEwOU8 jeTwvdGQ+PC90 dl66X7RlYpokWst4JSIlP DY3xGM4uJ1dKSOvQNlxg4 W6aGJ2A5AjxwUdkj3uv1e hHMJrSHhdG53u nUHqi7Q3WMFofZL4AYTra SvmYgBmsN53Gin+PGNvbG pcm9LqMdqri4rmm5mmoQd 9IjMwJSIgdmFs mFblWQV0m7FcJq03C55qX HdpZHRoPSIzMCUiIHZhbG jajb2fpI0iLc0+PGNvbCB 4qSN8rP3vIcGz JvP8AIhzV131BuCayAEmP drse3zfg2ylvWe2DwGaGC UnpjEnnDbvYPT6v4DaHx4 1U3XltUqld8Ev Jqy2qo85oOXie5B0yYM9D 3BhZGRpbmctbGVmdDogMC 0bFJKdiglaQPVreA7uWKJ iS1j3JfIoPeX3 LVeaC1JsurR0AXUivNKoW EMsvOJWmW7fgmzpv0zlqx wzPbPlNFMvEYx0JJs4FJL saWduOiBsZWZ0 YtY7XWD8eGQqdU3qpDcej lxlqO2mKkj+DPo4t2xyhI VdHE6dpRA8XO39XF95aVM zu1E0mJM6M3Hm DRTsshjrossczQH1TBQhI OBcdF44Lz6kpZhqIx2sVI UsTOK9CPWkeQNnB0XywF0 yOiAjMDAwMDAw T1GqfHUmKVmaM418WMhtM vL6HWRcceGaE2EfFVOwnY qoTqM5k3Z3Pe4EFY58YF9 6RY43eVSxt5Z5 pRQ8P7NqNBKqplcbmxulc GI8PGBxETZqlX40Ik6pfT xnVk9lOYMjWJB2KALigRO rC0EmeN2wIsAe CIHmXWMbP6XekDIpGOclZ 250BNqiKyF8QPPuygFoJ3 EdUZEqpBmyCfW4l8Y2Qh1 GMr99VQ04MQ10 iPEgo5R6kUT6N8RoFVRob einlhryvYR6HXGyLIXdlW 75Is6ihLoyNe1fCXHxIOL 5TVUjfRLxB7Kw dJ1hJtGfYIVyPGQyE5Iym CRnPOimW120URsfSsH6IY ZhwuJxK1UrUMQrnJngIpS 1n9K6Pc8IQBzw sdr0R3AlPhqxsSI+PC90Y VUbCZ26iEVgsZGnp8asdI h8NpQcDDDaQMN6dKexBHq eq5DwOIYjX64p bGFw (more content not included)... Normal [facility] Path. Reviewon 12-11-2021 Path Review Microcytic and hypochromic anemia. Clinical correlation and iron studies are recommended to determine etiology as clinically indicated. Invalid Interpretation Code [facility] Comment on above: Order Comment: Order Added by Discern Expert. Performed By: #### 2 [id number], [id number], [id number], 9123228, [id number], [id number], [id number] #### [facility] [address] [place] [address] Auto Diffon 12-10-2021 Basophils/100 WBC (Bld) 0.2 % Normal 0.0-2.0 [facility] Comment on above: Order Comment: Order Added by Discern Expert. Performed By: #### 2 [id number], [id number], 15970189, 6262596, 11895372, [id number], [id number] #### [facility] [address] [place] [address] Basophils/Leukocytes Auto (Bld) [Pure # fraction] 0.0 E9/L Normal 0.0-0.2 [facility] Comment on above: Order Comment: Order Added by Discern Expert. Performed By: #### 2 [id number], [id number], 65012335, 3548989, 36062208, [id number], [id number] #### [facility] [address] [place] [address] Eosinophils/100 WBC (Bld) 1.3 % Normal 0.0-8.0 [facility] Comment on above: Order Comment: Order Added by Discern Expert. Performed By: #### 2 [id number], [id number], 20399362, 0216204, [id number], 23062602, [id number] #### [facility] [address] [place] [address] Eosinophils/Leukocyte s Auto (Bld) [Pure # fraction] 0.1 E9/L Normal 0.0-0.5 [facility] Comment on above: Order Comment: Order Added by Discern Expert. Performed By: #### 2 581049, 23235924, 88743942, 2922471, 87282175, 59983873, [id number] #### [facility] [address] [place] [address] Lymphocytes/100 WBC (Bld) 30.3 % Normal 14.0-50.0 [facility] Comment on above: Order Comment: Order Added by Discern Expert. Performed By: #### 2 122928, [id number], 47041455, 1582269, 55815900, 19913499, [id number] #### [facility] [address] [place] [address] Lymphocytes/Leukocyte s Auto (Bld) [Pure # fraction] 2.1 E9/L Normal 1.0-4.0 [facility] Comment on above: Order Comment: Order Added by Discern Expert. Performed By: #### 2 319856, [id number], 32003446, 5885099, 74279020, 30660203, 6577327 #### [facility] [address] [place] [address] Monocytes/100 WBC (Bld) 6.2 % Normal 4.0-14.0 [facility] Comment on above: Order Comment: Order Added by Discern Expert. Performed By: #### 2 463319, 97595405, 97710064, 1756615, 92171369, 30587027, 2248489 #### [facility] [address] [place] [address] Monocytes/Leukocytes Auto (Bld) [Pure # fraction] 0.4 E9/L Normal 0.2-1.0 [facility] Comment on above: Order Comment: Order Added by Discern Expert. Performed By: #### 2 924288, 59194462, 64464992, 3886666, 49543348, 24735601, 4858238 #### [facility] [address] [place] [address] Neutrophils/100 WBC (Bld) 62.0 % Normal 36.0-75.0 [facility] Comment on above: Order Comment: Order Added by Discern Expert. Performed By: #### 2 562520, 69522388, 14594010, 3033991, 95999959, 44390686, 2961982 #### [facility] [address] [place] [address] Neutrophils/Leukocyte s Auto (Bld) [Pure # fraction] 4.3 E9/L Normal 2.0-7.5 [facility] Comment on above: Order Comment: Order Added by Discern Expert. Performed By: #### 2 541486, 64891941, 80507068, 5960486, 98113700, 15156871, 0628043 #### [facility] [address] [place] [address] BMPon 12-10-2021 Creatinine [Mass/Vol] 1.0 mg/dL Normal 0.5-1.3 [facility] Comment on above: Performed By: #### 2 897628, 81712705, 51681590, 6971077, 18171566, 84729828, 5219746 #### [facility] [address] [place] [address] Urea nitrogen [Mass/Vol] 17 mg/dL Normal 5-21 [facility] Comment on above: Performed By: #### 2 266367, 92462840, 99920096, 4327595, 93889599, 99877742, 9518425 #### [facility] [address] [place] [address] Urea nitrogen/Creatinine [Mass ratio] 17 No Units Normal 10-20 [facility] Comment on above: Performed By: #### 2 700723, 75834016, 07006498, 4428170, 77397001, 42545484, 7737287 #### [facility] [address] [place] [address] Anion gap [Moles/Vol] 13 mmol/L Normal 6-16 [facility] Comment on above: Performed By: #### 2 395582, 02748366, 61933249, 1080753, 54703886, 76400331, 6360320 #### [facility] [address] [place] [address] Calcium [Mass/Vol] 9.2 mg/dL Normal 8.9-11.1 [facility] Comment on above: Performed By: #### 2 163154, 00973171, 49562608, 5278179, 44039901, 20964921, 1234447 #### [facility] [address] [place] [address] Chloride [Moles/Vol] 106 mmol/L Normal 101-111 [facility] Comment on above: Performed By: #### 2 792764, 57812488, 19539234, 7750947, 35408151, 74052501, 7133917 #### [facility] [address] [place] [address] CO2 [Moles/Vol] 22 mmol/L Normal 21-31 [facility] Comment on above: Performed By: #### 2 684764, 47724839, 41922483, 1626659, 38067174, 16157910, 4337406 #### [facility] [address] [place] [address] Glucose [Mass/Vol] 96 mg/dL Normal 55-199 [facility] Comment on above: Result Comment: If t his glucose result represents a fasting glucose, interpretation should refer to the following reference range: 55-99 mg/dL Performed By: #### 2 828351, 76454847, 58494661, 8239444, 59003775, 68335201, 9124781 #### [facility] [address] [place] [address] Potassium [Moles/Vol] 4.2 mmol/L Normal 3.5-5.3 [facility] Comment on above: Performed By: #### 2 404840, 32977432, 70155072, 6468498, 91009634, 72357969, 1436810 #### [facility] [address] [place] [address] Sodium [Moles/Vol] 137 mmol/L Normal 135-145 [facility] Comment on above: Performed By: #### 2 855691, 47511206, 74998953, 3714860, 32356265, 48823039, 7401131 #### [facility] [address] [place] [address] CBC w/ Auto Diffon 2 Erythrocyte distribution width (RBC) [Ratio] 15.4 % High 10.9-14.2 [facility] Comment on above: Performed By: #### 2 286347, 39248980, 04029356, 2466883, 66013680, 72386590, 9868201 #### [facility] [address] [place] [address] Hematocrit (Bld) [Volume fraction] 34.9 % Normal 34.0-46.0 [facility] Comment on above: Performed By: #### 2 637567, [id number], [id number], 7153058, 63900861, 80545249, 5648716 #### [facility] Laboratory [address] [place] [address] Hemoglobin (Bld) [Mass/Vol] 11.0 g/dL Low 12.0-16.0 [facility] Comment on above: Performed By: #### 2 152467, 87243233, 62572583, 8425804, 77513670, 33905506, 6155324 #### [facility] [address] [place] [address] MCH (RBC) [Entitic mass] 17.7 pg Low 27.0-34.0 [facility] Comment on above: Performed By: #### 2 994338, 26443389, 54661165, 5563067, 23999301, 62187880, 9507701 #### [facility] Laboratory [address] [id number] MCHC (RBC) [Mass/Vol] 31.6 g/dL Normal 31.4-36.0 [facility] Comment on above: Performed By: #### 2 350821, 25603874, 34938344, 8695303, 42741145, 15297519, 6107143 #### [facility] [address] [place] [address] MCV (RBC) [Entitic vol] 56.1 fL Low 80.0-100.0 [facility] Comment on above: Performed By: #### 2 868417, 79017336, 67874707, 8452851, 31094631, 77204948, 9685849 #### [facility] Laboratory [address] [place] [address] Platelet mean volume (Bld) [Entitic vol] 8.9 fL Normal 6.4-10.8 [facility] Comment on above: Performed By: #### 2 150409, 92428070, 80210696, 0984662, 37956214, 20438309, 2389254 #### [facility] [address] [place] [address] Platelets (Bld) [#/Vol] 281.0 E9/L Normal 150.0-500.0 [facility] Comment on above: Performed By: #### 2 034890, 83896931, 76513413, 5655836, 65297494, 03858972, 1183505 #### [facility] [address] [place] [address] RBC (Bld) [#/Vol] 6.2 E12/L High 4.3-5.9 [facility] Comment on above: Performed By: #### 2 105181, 61967524, 82728207, 2360412, 58863241, 53529835, 1723845 #### [facility] [address] [place] [address] WBC corrected for nucl RBC Auto (Bld) [#/Vol] 6.9 E9/L Normal 4.0-11.0 [facility] Comment on above: Performed By: #### 2 140646, 86112972, 86237488, 9355315, 76638393, 42010413, 9562932 #### [facility] [address] [place] [address] CHEMISTRYOrdered By: SYSTEM SYSTEM on 12-10-2021 Anion [...] rate/Area] mL/min/1.73 m2 Normal >=59mL/min/1 .73 m2 [facility] Chem S GFR/1.73 sq M.predicted among non-blacks MDRD (S/P/Bld) [Vol rate/Area] mL/min/1.73 m2 Normal >=59mL/min/1 .73 m2 [facility] [place] Chem S Glucose [Mass/Vol] 96 mg/dL Normal 55 - 199 mg/dL [facility] Remisol Potassium [Moles/Vol] 4.2 mmol/L Normal 3.5 - 5.3 mmol/L [facility] Remisol Sodium [Moles/Vol] 137 mmol/L Normal 135 - 145 mmol/L [facility] [place] Remisol Troponin I.cardiac [Mass/Vol] pg/mL Low 10.10 - 27.10 pg/mL [facility] [place] Remisol Urea nitrogen [Mass/Vol] 17 mg/dL Normal 5 - 21 mg/dL [facility] [place] Remisol Urea nitrogen/Creatinine [Mass ratio] 17 mg/mg Normal 10 - 20 [facility] Remisol Consent for Treatmenton 11-24 Consent for Treatment [id number] .[id number]:127 Normal [facility] Discharge Instructionson Discharge Instructions [id number] .[id number]:127 Normal [facility] ED Clinical Summaryon 2021 ED Clinical Summary [address] [address] ED Clinical Summary Person Information Name: TORIE JOHNSTON Carline [facility] Age: 31 Years : 1990 Sex: Female Language: Japanese PCP: YAMILE GARCIA CNP Marital Status: Visit [...] 03:49:35 12/10/2021 03:49:35 12/10/2021 03:49:35 ADDRESS: [address] [id number] [facility] DOC NOTES: MEDICAL INFORMATION: Prescriptions Given: New [...] With: Address: When: YAMILE GARCIA [address], [place], [place] [id number] [phone] Business (1) In 3 days 12/13/2021 Comments: Return to the emergency room if your vertigo recurs or any new symptoms DIAGNOSIS: 1:Vertigo; 2:Leg pain Normal [facility] ED Note-Nursingon 12-10-2021 ED Note-Nursing pt given d/c instructions and educated on importance of follow up. pt educated on new medications. pt verbalized understanding of instructions and readiness for d/c. pt walked self ambulatory to waiting room in stable condition Normal [facility] ED Note-Physicianon 12-11-19 ED Note-Physician Basic Information [...] meclizine 12.5 mg Tab, 25 mg, Oral [id number] [F], 1000 mL, IV Phenergan 25 mg/mL Injection, 12.5 mg, IV Push Disposition Plan Patient Discharge Condition Stable, improved Discharge Disposition Discharged home Discharge Prescription List Prescriptions meclizine 25 mg Tab, 25 mg= 1 tab(s), Oral, TID Zofran ODT 4 mg Tab-Dis, 4 mg= 1 tab(s), Oral, q6hr, PRN Follow-up With When Contact Information YAMILE GARCIA In 3 days 12/13/2021 EDT [address] [place] [address] [phone] Business (1) Additional Instructions: Return to the [...] 00:31:00) Hct: (more content not included)... Normal [facility] Comment on above: Result Comment: Elec tronically [...] you feel dizzy. General instructions ? Take zhlh-zsl-rhtpiki and prescription medicines only as told by [...] 02/20/2006 Document Revised: 04/06/2019 Document Reviewed: 04/06/2019 PushCall Patient Education ? 2019 Spyra. Normal [facility] ED Patient Summaryon 022 ED Patient Summary [place] [address] Patient Discharge Instructions Person Information Name: TORIE JOHNSTON Age: 31 Years Arrival Date: 12/09/2021 22:22:45 Discharge Diagnosis: 1:Vertigo; 2:Leg pain Primary Care Physician: YAMILE GARCIA CNP Provider Information Primary Provider: Miguel Kamara M.D. Advanced College Counselor:None The exam and treatment you received in the Emergency Department were for an urgent problem and are not intended as complete care. It is important that you follow up with a doctor, nurse practitioner, or physician?s high school assistant principal for ongoing care. If your symptoms become [...] Address: When: YAMILE GARCIA [address] [facility], [place], [place] [phone] Business (1) In 3 days 12/13/2021 Comments: [...] opioids can be used to help relieve wgjiqlfm-vv-xygfar pain and are often prescribed following a [...] be struggling with addiction, tell your health health care assistant and ask f (more content not included)... Normal [facility] HEMATOLOGYOrdered By: Serg Goodson on 12-10-2021 Anisocytosis [...] Ql (Bld) Present (12/10/21 12:31 AM) Normal [facility] [place] HemeManSS Polychromasia LM Ql (Bld) Present (12/10/21 12:31 AM) Normal [facility] HemeManSS RBC (Bld) [#/Vol] 6.2 E12/L High 4.3 - 5.9 E12/L [facility] HemeAutoSS Teardrop Cell Present (12/10/21 12:31 AM) Normal [facility] [place] [facility] HemeManSS WBC corrected for [...] 4.3 E9/L Normal 2.0 - 7.5 E9/L [facility] [place] [facility] HemeAutoSS Morphon 12-10-2021 Anisocytosis Ql (Bld) Present Normal [facility] Comment on above: Order Comment: Order Added by Discern Expert. Performed By: #### 2 099851, 75390501, 67547541, 5625307, 38094455, 35880295, 7756507 #### [facility] Laboratory [address] [place] [address] Elliptocytes LM Ql (Bld) Present Normal [facility] Comment on above: Order Comment: Order Added by Discern Expert. Performed By: #### 2 443108, 17427662, 92073409, 9109078, 58874583, 63030512, 2555385 #### [facility] [address] [place] [address] Hypochromia Auto Ql (Bld) Present Normal [facility] Comment on above: Order Comment: Order Added by Discern Expert. Performed By: #### 2 052346, 36892248, 42775861, 7461845, 81366233, 54931420, 1507207 #### [facility] [address] [place] [address] Morphology Rey (Bld) [Interp] See Morphology Normal [facility] Comment on above: Order Comment: Order Added by Discern Expert. Performed By: #### 2 849131, 32595052, 68580516, 0152970, 46050237, 43244239, 1739294 #### [facility] [address] [place] [address] Poikilocytosis Auto Ql (Bld) Present Normal [facility] Comment on above: Order Comment: Order Added by Discern Expert. Performed By: #### 2 250614, 55329880, 87628534, 6243159, 22621202, 99406136, 1425092 #### [facility] [address] [place] [address] Polychromasia LM Ql (Bld) Present Normal [facility] Comment on above: Order Comment: Order Added by Discern Expert. Performed By: #### 2 462202, 79451267, 09030538, 9876722, 73587393, 66156561, 3273982 #### [facility] [address] [place] [address] Teardrop Cell Present Normal [facility] Comment on above: Order Comment: Order Added by Discern Expert. Performed By: #### 2 328632, 96606966, 49463122, 2724583, 38154392, 48359455, 4883610 #### [facility] [address] [place] [address] SEROLOGYOrdered By: Serg hope on 12-10-2021 HCG.beta subunit (U) [Moles/Vol] Negative Normal [facility] Man Sero Troponin 0 Hr.on 12-10-2021 Troponin I.cardiac [Mass/Vol] ng/mL Low 10.10-27.10 [facility] Comment on above: Result Comment: The 95% CI (Confidence Interval) PPV (Positive Predictive Value) for myocardial infarction in females is 38 pg/mL, in males 51 pg/mL. The results should be used in conjunction with clinical conditions of myocardial infarction. (Access High Sensitivity Troponin I Instructions For Use, Mili Dauphin, December 2017) Performed By: #### 2 506173, 86107024, 13685968, 5399389, 86463714, 34909249, 4644839 #### [facility] [address] [place] [address] U BetaHcg Qualon 12-10-2021 HCG.beta subunit (U) [Moles/Vol] Negative Normal [facility] Comment on above: Performed By: #### 2 7639266, 41608498 ####[facility] [address] [place] [address] UA With Cult Reflexon 2021 Bilirubin Ql (U) Negative Normal Negative [facility] Comment on above: Performed By: #### 2 6611208, 17804283 #### [facility] [address] [place] [address] Clarity (U) CLEAR Normal Clear [facility] Comment on above: Performed By: #### 2 7980968, 57685135 #### [facility] [address] [place] [address] Color (U) YELLOW Normal Yellow [facility] Comment on above: Performed By: #### 2 3352739, 10765596 #### [facility] [address] [place] [address] Epithelial cells.squamous LM.HPF (Urine sed) [#/Area] 0-2 Normal 0-2 [facility] Comment on above: Performed By: #### 2 0017392, 55117692 #### [facility] [address] [place] [address] Glucose Test strip (U) [Mass/Vol] Negative Normal Negative [facility] Comment on above: Performed By: #### 2 3079665, 05244081 #### [facility] [address] [place] [address] Hemoglobin Ql (U) Negative Normal Negative [facility] Comment on above: Performed By: #### 2 8896737, 62138229 #### [facility] [address] [place] [address] Ketones (U) [Mass/Vol] Negative Normal Negative [facility] Comment on above: Performed By: #### 2 9601405, 65405202 #### [facility] [address] [place] [address] [place].plasma/Lithiu m.RBC (Bld) [Mass ratio] 0-3 Normal 0-3 [facility] Comment on above: Performed By: #### 2 9768888, 37851852 #### [facility] [address] [place] [address] Nitrite Ql (U) Negative Normal Negative [facility] Comment on above: Performed By: #### 2 2280046, 05809717 #### [facility] [address] [place] [address] pH (U) 6.0 [pH] Invalid Interpretation Code 5.0-9.0 [facility] Comment on above: Performed By: #### 2 4007850, 78457837 #### [facility] [address] [place] [address] Protein (U) [Mass/Vol] Negative Normal Negative [facility] Comment on above: Performed By: #### 2 3684622, 01036962 #### [facility] Laboratory [address] [place] [address] Specific gravity (U) [Rel density] 1.025 Invalid Interpretation Code 1.005-1.030 [facility] Comment on above: Performed By: #### 2 9440670, 73904773 #### [facility] Laboratory [address] [place] [address] Type of Urine collection method Clean Catch Normal [facility] Comment on above: Performed By: #### 2 5196236, 75996641 #### [facility] Laboratory [address] [place] [address] Urobilinogen Qn (U) 0.2 {Isamar'U}/dL Normal 0.0-1.0 [facility] Comment on above: Performed By: #### 2 6705258, 30849176 #### [facility] Laboratory [address] [place] [address] WBC Auto Ql (U) Negative Normal Negative [facility] Comment on above: Performed By: #### 2 8396888, 10599487 #### [facility] [address] [place] [address] WBC LM.HPF (Urine sed) [#/Area] 0-5 Normal 0-5 [facility] Comment on above: Performed By: #### 2 2260001, 78906247 #### [facility] [address] [place] [address] URINALYSISOrdered By: Serg Goodson on 12-10-2021 Bilirubin [...] AM) Normal Negative [facility] UA Auto SS [place].plasma/Lithiu m.RBC (Bld) [Mass ratio] 0-3 /HPF Normal [...] [facility] UA Auto SS Urobilinogen Qn (U) 0.1354641 {Isamar'U}/dL Normal 0.0 - 1.0 EU/dL [facility] [...] M.D. Transcribed by: FABI Technologist: MARKO Ornelas [facility] eGFRon 12-10-2021 GFR/1.73 sq M.predicted among blacks MDRD (S/P/Bld) [Vol rate/Area] mL/min/{1.73_m2} Normal >=59 [facility] Comment on above: Order Comment: Order added by Discern Expert. Result Comment: eGFR is race adjusted. AA=. Performed By: #### 2 977796, 07697700, 68620546, 7423454, 08331671, 34846243, 7953669 #### [facility] [address] [place] [address] GFR/1.73 sq M.predicted among non-blacks MDRD (S/P/Bld) [Vol rate/Area] mL/min/{1.73_m2} Normal >=59 [facility] Comment on above: Order Comment: Order added by Discern Expert. Result Comment: Ash Worker sonu kidney disease could be indicated at eGFR's of less than 60 mL/min/1.73m2. Kidney failure is indicated at less than 15 mL/min/1.73m2. Performed By: #### 2 280759, 48509710, 77524189, 7192125, 71670647, 87387331, 4826244 #### [facility] [address] [place] [address] VC CONSULT FOLLOWUPon 2021 VC CONSULT FOLLOWUP Patient: TORIE JOHNSTON Exam Date: 11/16/2021 : 1990 Gender:F Ordering : DR SADI JEWELL M.D. Admission #: [id number] Family : Order #: [id number] CLICK HERE TO VIEW EXAM RADIOLOGY REPORT [...] Wood M.D. on 11/16/2021 at 12:01 Normal [facility] VC EXT VENOUS LT LIMITEDon 0 11-16-2021 VC EXT VENOUS LT LIMITED Patient: TORIE JOHNSTON Exam Date: 11/16/2021 : 1990 Gender:F Ordering : DR SADI JEWELL M.D. Admission #: [id number] Family : Order #: [id number] CLICK HERE TO VIEW EXAM RADIOLOGY REPORT [...] Wood M.D. on 11/16/2021 at 11:58 Normal [facility] VC ENDOVENOUS ABL 1ST V LTon 11-08-2021 VC ENDOVENOUS ABL 1ST V LT Patient: TORIE JOHNSTON Exam Date: 11/08/2021 : 1990 Gender:F Ordering : DR SADI JEWELL M.D. Admission #: [id number] Family : Order #: [id number] CLICK HERE TO VIEW EXAM RADIOLOGY REPORT PROCEDURE: VEIN CENTER ENDOVENOUS ABLATION FIRST VEIN LEFT COMPARISON: None. INDICATIONS: Pain co-occurrent and due to varicose veins of bilateral legs I83.813 OPERATIVE REPORT: The risks and benefits of the procedure had been previously discussed, and were rediscussed at length. Informed written consent was obtained by in and Ketan Haley assisted. Time out procedure [...] Jose Wood M.D. on 11/08/2021 at 08:59 [facility] VC CONSULT FOLLOWUPon 2021 VC CONSULT FOLLOWUP Patient: TORIE JOHNSTON Exam Date: 10/19/2021 : 1990 Gender:F Ordering : DR SADI JEWELL M.D. Admission #: [id number] Family : Order #: [id number] CLICK HERE TO VIEW EXAM RADIOLOGY REPORT [...] Jose Wood M.D. on 10/19/2021 at 09:37 [facility] VC EXT VENOUS RT LIMITEDon 0 10-19-2021 VC EXT VENOUS RT LIMITED Patient: TORIE JOHNSTON Exam Date: 10/19/2021 : 1990 Gender:F Ordering : DR SADI JEWELL M.D. Admission #: [id number] Family : Order #: [id number] CLICK HERE TO VIEW EXAM RADIOLOGY REPORT [...] Wood M.D. on 10/19/2021 at 09:34 Normal [facility] VC ENDOVENOUS ABL 1ST V RTon 10-16-2021 VC ENDOVENOUS ABL 1ST V RT Patient: TORIE JOHNSTON Exam Date: 10/16/2021 : 1990 Gender:F Ordering : DR SADI JEWELL M.D. Admission #: [id number] Family : Order #: [id number] CLICK HERE TO VIEW EXAM RADIOLOGY REPORT [...] Sadi Jewell MD on 10/16/2021 at 09:30 [facility] THYROIDon 10-10-2021 US THYROID EXAMINATION: US [...] authenticated by: JOSE Quezada: 2021-10-10 08:52 Normal [facility] Vital Signs Date Time Vital Sign Value Performing Clinician Isabelle nielsen 12-10-2021 14:00-0400 Body temperature 98.6 [degF] [facility] 12-10-2021 14:00-0400 Diastolic blood pressure 94 mm[Hg] [facility] 12-10-2021 14:00-0400 Heart rate 86 /min [facility] 12-10-2021 14:00-0400 Mean blood pressure 106 mm[Hg] [facility] 12-10-2021 14:00-0400 Respiratory rate 18 /min [facility] 12-10-2021 14:00-0400 SaO2% (BldA) [Mass fraction] 100 % [facility] 12-10-2021 14:00-0400 Systolic blood pressure 131 mm[Hg] [facility] 12-10-2021 03:38-0400 Body temperature 98.24 [degF] [facility] 12-10-2021 03:38-0400 Diastolic blood pressure 64 mm[Hg] [facility] 12-10-2021 03:38-0400 Heart rate 92 /min [facility] 12-10-2021 03:38-0400 Mean blood pressure 80 mm[Hg] [facility] 12-10-2021 03:38-0400 Respiratory rate 17 /min [facility] 12-10-2021 03:38-0400 SaO2% (BldA) [Mass fraction] 99 % [facility] 12-10-2021 03:38-0400 Systolic blood pressure 111 mm[Hg] [facility] 12-10-2021 03:00-0400 Diastolic blood pressure 85 mm[Hg] [facility] 12-10-2021 03:00-0400 Mean blood pressure 102 mm[Hg] [facility] 12-10-2021 03:00-0400 Systolic blood pressure 137 mm[Hg] [facility] 12-10-2021 00:00-0400 Heart rate 80 /min [facility] 12-09-2021 23:00-0400 gluc 90 mg/dL [facility] 12-09-2021 23:00-0400 gluc [facility] 12-09-2021 23:00-0400 Heart rate 75 /min [facility] 12-09-2021 22:46-0400 Heart rate 86 /min [facility] Encounters Encounter Date Encounter Type Care Provider Facility Start: 2023 End: 06-21-2023 ambulatory EVGENY ZHOU Facility:[facility] Start: 09-20-2022 End: 09-21-2022 ambulatory MAHAD GARCIA [...] 12-10-2021 Emergency department patient visit [facility] Start: 11-23-2021 End: 11-24-2021 ambulatory [employer] YAMILE GARCIA Facility:[facility] Start: 11-21-[address] [...] End: 08-22-2020 Patient encounter procedure External Provider [facility] Start: 08-22-2020 Results Only External Provider Exter nal-NonCCF Procedures Date Procedure Procedure Detail Performing Clinician Start: 08-22-2020 EXTERNAL IMAGING 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 al Provider Start: 08-22-2020 EXTERNAL LAB External P rovider Plan of Treatment Date Care Activity Detail Author Start: 01-26-2020 Influenza vaccination INFLUENZA (#1) [facility] Start: 2019 HPV TESTING HPV TESTING [facility] Start: 2010 PAP TESTING PAP TESTING [facility] Start: 2008 Urine microalbumin profile DTAP,TDAP ,TD (1 - Tdap) [facility] Start: 2007 HEPATITIS C SCREENING HEPATITIS C SC REENING [facility] Start: 2007 HIV SCREENING HIV SCREENING [facility] Start: 2001 Adult depression scr eening assessment DEPRESSION SCREENING [facility] Clini c Payers Date Payer Category Payer Private Health Insurance AET[employer] A ETNA OPEN ACCESS [employer] [id number] 2020-Present EPO [id number] 1990 Unknown [id number] 2.16.840.1.857080.3.579.2.5 93 1989 Unknown [id number] 2.16.840.1.195792.3.579.2.5 1989 Unknown [id number] 2.16.840.1.786243.3.579.2.5 1989 Unknown [id number] 2.16.840.1.975291.3.579.2.5 1989 Unknown [id number] 2.16.840.1.289768.3.579.2.5 93 1989 Unknown [id number] 2.16.840.1.625700.3.579.2.5 1989 Unknown [id number] 2.16.840.1.339136.3.579.2.5 1989 Unknown [id number] 2.16.840.1.470768.3.579.2.5 1989 Unknown [id number] 2.16.840.1.968879.3.579.2.5 1989 Unknown [id number] 2.16.840.1.892275.3.579.2.5 1989 Unknown [id number] 2.16.840.1.874321.3.579.2.5 1989 Unknown [id number] 2.16.840.1.631075.3.579.2.5 1989 Unknown [id number] 2.16.840.1.413807.3.579.2.5 1989 Unknown [id number] 2.16.840.1.885700.3.579.2.5 1989 Unknown [id number] 2.16.840.1.595130.3.579.2.5 93 1960 Medicaid [id number] 1960 Private Health Insurance [id number] 2.16.840.1.033196.19 1959 Self-pay [id number] 1960 Self-pay 1959 Unknown [id number] 1959 Unknown [id number] Social History Date Type Detail Facility Start: 08-22-2020 Tobacco smoking stat [facility] Unknown if ever smoked [facility] Start: 1990 Sex Assigned At Not on file C [facility] Exposure to SARS-CoV -2 (event) Not sure [facility] Sex Assigned At [employer] Other Tobacco smoking status No Smokin g Status Entered [facility] Functional Status Date Assessment Result Facility 12-09-2021 Functional Status N/A [facility] Progress note 2023 Note Date & Type Note Facility 2023 Note HNO ID: [id number] Author: FRANCIS MA MD Service: ? Author Type: Physician Type: Progress Notes Filed: 2023 14:44 Note Text: [facility], [place] Department of Hematologic Oncology and Blood Disorders PATIENT NAME: [facility] NO: [id number] ATTENDING PHYSICIAN: Francis Ma MD. DATE OF [...] Abs Lymph 1.00 - 4.00 k/uL 1.42 [place]% % 5.3 Abs [place] <0.87 k/uL 0.21 [place]% % 1.5 Abs [...] in 2018 during ). 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 She was placed on folic acid. [...] We also reviewed (more content not included)... [facility] Evaluation + Plan note 12-10-2021 Note [...] Diagnostic Tests Pending * Path. Review 12/10/21 [facility] Hospital Discharge instructions 12-10-2021 Note Date [...] if you feel dizzy. General instructions Take orae-bnf-jzfgrdt and prescription medicines only as told by [...] 02/20/2006 Document Revised: 04/06/2019 Document Reviewed: 04/06/2019 [employer] Patient Education 2020 [employer]. Follow Up Care 12/09/2021 22:26:43 With:YAMILE GARCIA Address: [address] [place] [phone] Business (1) When:12/13/2021 Comments:Return to the emergency room if your vertigo recurs or any new symptoms [facility] Clinical Note 12-10-2021 Note Date & [...] any SOB. pt has hx of anxiety [facility] Evaluation note Note Date & Type Note Facility Evaluation note No Information [facility] Other History general Narrative - Reported Note Date & Type Note Facility History general Narrative - Reported Type Surgical History D & C Surgical History tubal ligation [facility] [employer] Other Hospital course Narrative Note Date & Type Note Facility Hospital course Narrative No data available for this section [facility] Progress note Note Date & Type Note Facility Progress note No data available for this section [facility] Summary Purpose Family History No Family [...] or prosecute any alcohol or drug abuse patient.[facility] the event this information is protected by the Federal Confidentiality of Alcohol and Drug Abuse Patient Records regulations: The Federal rules restrict any use of the information to criminally investigate or prosecute any alcohol or drug abuse patient.[facility] REASON FOR VISIT (unrecogniz ed section and content) N/S covid test Care Team (unrecognized sect ion and content) Personnel Name: YAMILE GARCIA CNP Address: [address] [place], [place] [id number] [place] INFORMATION SOURCE (unrecogn ized section and content) DATE CREATED AUTHOR 12/14/2021 [facility] DATE CREATED AUTHOR AUTHOR'S ORGANIZ ATION 10/06/2022 [facility] DATE CREATED AUTHOR AUTHOR'S ORGANIZ ATION 06/22/2023 [facility] FOR RECORDS PERTAINING TO PATIENTS WHO [...] BE BASED ON THE PRIMARY CLINICAL RECORDS. [facility]. provides no warranty or guarantee of the accuracy or completeness of information in this document.
== END 2023-12-20 15:52 | disposition home or self-care (01) ==
LOC: US 15:52
PROVIDERS: Family Provider Nurse Practitioner Primary Care; PCP Nurse Practitioner; Visit Provider Nurse Practitioner
DX: E03.9 Hypothyroidism, unspecified (principal); E04.1 Nontoxic single thyroid nodule
CPT/HCPCS: 76536

== ENCOUNTER 2024-06-13 07:36 | Outpatient (OUT) | payer OTHER, SELFPAY ==
--- OUTSIDE RECORDS SUMMARY | 2024-06-13 07:42 | XMS_ITS | CCD ---
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 Role Phone Unavailable Primary Care Provider Juan Carlos Panchal Unavailable CEDRICYAMILE BRANDON Primary Care Physician [phone] FANTA, DR SADI Oliveira Consulting Unavailable AICHHOLZ, TELEGRAPH OFFICE MANAGER YAMILE Primary Care Unavailable WEST, DR SADI Oliveira Attending Unavailable WEST, DR SADI Oliveira Admitting Unavailable WEST, DR SADI Oliveira Consulting Unavailable AICHHOLZ, TELEGRAPH OFFICE MANAGER YAMILE Primary Care Unavailable WEST, DR SADI Oliveira Attending Unavailable WEST, DR SADI Oliveira Admitting Unavailable ZIEBER, DR JOSE Crowley Consulting Unavailable WEST, DR SADI Oliveira Consulting Unavailable AICHHOLZ, TELEGRAPH OFFICE MANAGER YAMILE Primary Care Unavailable WEST, DR SADI Oliveira Attending Unavailable WEST, DR SADI Oliveira Admitting Unavailable ZIEBER, DR JOSE Crowley Consulting Unavailable WEST, DR SADI Oliveira Consulting Unavailable AICHHOLZ, TELEGRAPH OFFICE MANAGER YAMILE Primary Care Unavailable WEST, DR SADI Oliveira Attending Unavailable WEST, DR SADI Oliveira Admitting Unavailable WEST, DR SADI Oliveira Consulting Unavailable AICHHOLZ, TELEGRAPH OFFICE MANAGER YAMILE Primary Care Unavailable WEST, DR SADI Oliveira Attending Unavailable WEST, DR SADI Oliveira Admitting Unavailable ZIEBER, DR JOSE Crowley Consulting Unavailable WEST, DR SADI Oliveira Consulting Unavailable AICHHOLZ, TELEGRAPH OFFICE MANAGER YAMILE Primary Care Unavailable WEST, DR SADI Oliveira Attending Unavailable FANTA, DR SADI Oliveira Admitting Unavailable ZIEBER, DR JOSE Crowley Consulting Unavailable FANTA, DR SADI Oliveira Admitting Unavailable WEST, DR SADI Oliveira Attending Unavailable AICHHOLZ, TELEGRAPH OFFICE MANAGER YMAILE Primary Care Unavailable WEST, DR SADI Oliveira Consulting Unavailable AICHHOLZ, TELEGRAPH OFFICE MANAGER YAMILE Consulting Unavailable AICHHOLZ, TELEGRAPH OFFICE MANAGER YAMILE Primary Care Unavailable AICHHOLZ, TELEGRAPH OFFICE MANAGER YAMILE Attending Unavailable AICHHOLZ, TELEGRAPH OFFICE MANAGER YAMILE Admitting Unavailable AICHHOLZ, TELEGRAPH OFFICE MANAGER YAMILE Admitting Unavailable AICHHOLZ, TELEGRAPH OFFICE MANAGER YAMILE Attending Unavailable AICHHOLZ, TELEGRAPH OFFICE MANAGER YAMILE Primary Care Unavailable AICHHOLZ, TELEGRAPH OFFICE MANAGER YAMILE Consulting Unavailable ADONAY, DR JOSE Crowley Consulting Unavailable AICHHOLZ, TELEGRAPH OFFICE MANAGER YAMILE Consulting Unavailable AICHHOLZ, TELEGRAPH OFFICE MANAGER YAMILE Primary Care Unavailable AICHHOLZ, TELEGRAPH OFFICE MANAGER YAMILE Attending Unavailable AICHHOLZ, TELEGRAPH OFFICE MANAGER YAMILE Admitting Unavailable ADONAY, DR JOSE Crowley Consulting Unavailable FRANDY ., DR MATOS Attending Unavailable FRANDY ., DR MATOS Admitting Unavailable AICHHOLZ, TELEGRAPH OFFICE MANAGER YAMILE Primary Care Unavailable FRANDY ., DR MATOS Consulting Unavailable CONNIE COTA Consulting Unavailable MARIAN HIGGINS Consulting Unavailable STAR Montejo, MADDIE Attending Unavailable STAR ., MADDIE Admitting Unavailable AICHHOLZ, TELEGRAPH OFFICE MANAGER YAMILE Primary Care Unavailable JOSE RICKETTS Consulting Unavailable STAR ., MADDIE Consulting Unavailable RONALDO, MARIAN Consulting Unavailable RONALDO, MARIAN Attending Unavailable RONALDO, MARIAN Admitting Unavailable AICHHOLZ, TELEGRAPH OFFICE MANAGER YAMILE Primary Care Unavailable PAKO JERRY Consulting Unavailable ANA VAZ Consulting Unavailable RONALDO, MARIAN Attending Unavailable RONALDO, MARIAN Admitting Unavailable AICHHOLZ, TELEGRAPH OFFICE MANAGER YAMILE Primary Care Unavailable LEROY PRETTY Consulting Unavailable Ludy Garcia Consulting Unavailable FANTA, DR SADI Oliveira Consulting Unavailable AICHHOLZ, TELEGRAPH OFFICE MANAGER YAMILE Primary Care Unavailable FANTA, DR SADI [...] 3 Episodic Other aftercare (1 source) Other prison (current) drug therapy; Translations: [OTH DERRICK MAN CURRENT DRUG THERAPY] Onset: 3 Episodic Other [...] Basophils (Bld) [#/Vol] 0.03 10*3/uL Normal <0.11 [facility] Comment on above: Order Comment: Speci men Type: BLOOD SPECIMEN Ordering Facility: [facility] Address: [address] [place], [place] [address] Performed By: #### 1 4196-0, 86482-5 #### [facility] [id number] [address] [place] [address] [place] Basophils/100 WBC (Bld) 0.5 % Normal [facility] Comment on above: Order Comment: Speci men Type: BLOOD SPECIMEN Ordering Facility: [facility] Address: [address] [place] [address] Performed By: #### 1 4196-0, 43710-6 #### [facility] [id number] [address] [place] [address] [place] Differential cell count method Nom (Bld) Auto Normal [facility] Comment on above: Order Comment: Speci men Type: BLOOD SPECIMEN Ordering Facility: [facility] Address: [address] [place] [address] Performed By: #### 1 4196-0, 20042-9 #### [facility] [id number] [address] [place] [address] [place] Eosinophils (Bld) [#/Vol] 0.10 10*3/uL Normal <0.46 [facility] Comment on above: Order Comment: Speci men Type: BLOOD SPECIMEN Ordering Facility: [facility] Address: [address] [place] [address] Performed By: #### 1 4196-0, 74405-7 #### [facility] [id number] [address] [place] [address] [place] Eosinophils/100 WBC (Bld) 1.8 % Normal [facility] Comment on above: Order Comment: Speci men Type: BLOOD SPECIMEN Ordering Facility: [facility] Address: [address] [place] [address] Performed By: #### 1 4196-0, 04118-3 #### [facility] [id number] [address] [place] [address] [place] Erythrocyte distribution width (RBC) [Ratio] 16.5 % High 11.5-15.0 [facility] Comment on above: Order Comment: Speci men Type: BLOOD SPECIMEN Ordering Facility: [facility] Address: [address] [place] [address] Performed By: #### 1 4196-0, 30219-3 #### [facility] [id number] [address] [place] [address] [place] Hematocrit (Bld) [Volume fraction] 34.9 % Low 36.0-46.0 [facility] Comment on above: Order Comment: Speci men Type: BLOOD SPECIMEN Ordering Facility: [facility] Address: [address] [place] [address] Performed By: #### 1 4196-0, 75653-6 #### [facility] [id number] [address] [place] [address] [place] Hemoglobin (Bld) [Mass/Vol] 10.5 g/dL Low 11.5-15.5 [facility] Comment on above: Order Comment: Speci men Type: BLOOD SPECIMEN Ordering Facility: [facility] Address: [address] [place] [address] Performed By: #### 1 4196-0, 06798-3 #### [facility] [id number] [address] [place] [address] [place] Immature granulocytes (Bld) [#/Vol] 10*3/uL Normal <0.10 [facility] Comment on above: Order Comment: Speci men Type: BLOOD SPECIMEN Ordering Facility: [facility] Address: [address] [place] [address] Performed By: #### 1 4196-0, 45050-3 #### [facility] [place] [id number] [address] [place] [address] [place] Immature granulocytes/100 WBC (Bld) 0.2 % Normal [facility] Comment on above: Order Comment: Speci men Type: BLOOD SPECIMEN Ordering Facility: [facility] Address: [address] [place] [address] Performed By: #### 1 4196-0, 02901-5 #### [facility] [id number] [address] [place] [address] [place] Lymphocytes (Bld) [#/Vol] 1.77 10*3/uL Normal 1.00-4.00 [facility] Comment on above: Order Comment: Speci men Type: BLOOD SPECIMEN Ordering Facility: [facility] Address: [address] [place] [address] Performed By: #### 1 4196-0, 21040-0 #### [facility] [id number] [address] [place] [address] [place] Lymphocytes/100 WBC (Bld) 31.3 % Normal [facility] Comment on above: Order Comment: Speci men Type: BLOOD SPECIMEN Ordering Facility: [facility] Address: [address] [place] [address] Performed By: #### 1 4196-0, 50147-3 #### [facility] [id number] [address] [place] [address] [place] MCH (RBC) [Entitic mass] 17.9 pg Low 26.0-34.0 [facility] Comment on above: Order Comment: Speci men Type: BLOOD SPECIMEN Ordering Facility: [facility] Address: [address] [place] [address] Performed By: #### 1 4196-0, 59839-9 #### [facility] [id number] [address] [place] [address] [place] MCHC (RBC) [Mass/Vol] 30.1 g/dL Low 30.5-36.0 [facility] Comment on above: Order Comment: Speci men Type: BLOOD SPECIMEN Ordering Facility: [facility] Address: [address] [place] [address] Performed By: #### 1 4196-0, 93671-0 #### [facility] [id number] [address] [place] [address] [place] MCV (RBC) [Entitic vol] 59.7 fL Low 80.0-100.0 [facility] Comment on above: Order Comment: Speci men Type: BLOOD SPECIMEN Ordering Facility: [facility] Address: [address] [place] [address] Performed By: #### 1 4196-0, 26691-8 #### [facility] [id number] [address] [place] [address] [place] Monocytes (Bld) [#/Vol] 0.25 10*3/uL Normal <0.87 [facility] Comment on above: Order Comment: Speci men Type: BLOOD SPECIMEN Ordering Facility: [facility] Address: [address] [place] [address] Performed By: #### 1 4196-0, 97470-0 #### [facility] [id number] [address] [place] [address] [place] Monocytes/100 WBC (Bld) 4.4 % Normal [facility] Comment on above: Order Comment: Speci men Type: BLOOD SPECIMEN Ordering Facility: [facility] Address: [address] [place] [address] Performed By: #### 1 4196-0, 08448-8 #### [facility] [id number] [address] [place] [address] [place] Neutrophils (Bld) [#/Vol] 3.49 10*3/uL Normal 1.45-7.50 [facility] Comment on above: Order Comment: Speci men Type: BLOOD SPECIMEN Ordering Facility: [facility] Address: [address] [place] [address] Performed By: #### 1 4196-0, 25603-9 #### [facility] [id number] [address] [place] [address] [place] Neutrophils/100 WBC (Bld) 61.8 % Normal [facility] Comment on above: Order Comment: Speci men Type: BLOOD SPECIMEN Ordering Facility: [facility] Address: [address] [place] [address] Performed By: #### 1 4196-0, 57873-9 #### [facility] [place] [id number] [address] [place] [address] [place] Nucleated RBC (Bld) [#/Vol] 10*3/uL Normal <0.01 [facility] Comment on above: Order Comment: Speci men Type: BLOOD SPECIMEN Ordering Facility: [facility] Address: [address] [place] [address] Performed By: #### 1 4196-0, 56290-5 #### [facility] [place] [id number] [address] [place] [address] [place] Nucleated RBC/100 WBC (Bld) [Ratio] 0.0 /100 WBC Normal [facility] Comment on above: Order Comment: Speci men Type: BLOOD SPECIMEN Ordering Facility: [facility] Address: [address] [place] [address] Performed By: #### 1 4196-0, 85889-0 #### [facility] [place] [id number] [address] [place] [address] [place] Platelet mean volume (Bld) [Entitic vol] 10.5 fL Normal 9.0-12.7 [facility] Comment on above: Order Comment: Speci men Type: BLOOD SPECIMEN Ordering Facility: [facility] Address: [address] [place] [address] Performed By: #### 1 4196-0, 14803-6 #### [facility] CLIA [id number] [address] [place] [address] [place] Platelets (Bld) [#/Vol] 325 10*3/uL Normal 150-400 [facility] Comment on above: Order Comment: Speci men Type: BLOOD SPECIMEN Ordering Facility: [facility] Address: [address] [place] [address] Result Comment: Resu lts checked and verified.No clot detected. Performed By: #### 1 4196-0, 80893-8 #### [facility] CLIA [id number] [address] [place] [address] [place] RBC (Bld) [#/Vol] 5.85 10*6/uL High 3.90-5.20 [facility] Comment on above: Order Comment: Speci men Type: BLOOD SPECIMEN Ordering Facility: [facility] Address: [address] [place] [address] Performed By: #### 1 4196-0, 28471-6 #### [facility] CLIA [id number] [address] [place] [address] [place] WBC (Bld) [#/Vol] 5.65 10*3/uL Normal 3.70-11.00 [facility] Comment on above: Order Comment: Speci men Type: BLOOD SPECIMEN Ordering Facility: [facility] Address: [address] [place] [address] Performed By: #### 1 4196-0, 83295-2 #### [facility] CLIA [id number] [address] [place] [address] [place] CNOVSPon 2023 CNOVSP Visit (SP) Office ([facility]) TORIE JOHNSTON ([id number]) 1990 F Date Time Provider Department 06/20/23 2:00 PM FRANCIS MA [facility] During your visit today, we recorded the following information about you: Pulse Respiration Blood pressure Weight 86/minute 20/minute 127/81 106.3 kg Height Last Period 1.6 m 06/17/23 Francis Ma MD 2023 2:44 PM Signed [facility], [place] Department of Hematologic Oncology and Blood Disorders PATIENT NAME: Torie Crowley [facility] NO: [id number] ATTENDING PHYSICIAN: Francis Ma MD. DATE OF [...] Abs Lymph 1.00 - 4.00 k/uL 1.42 [place]% % 5.3 Abs [place] <0.87 k/uL 0.21 Eosin% % 1.5 Abs [...] in 2018 during ). 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 She was placed on folic acid. [...] of transfusion (more content not included)... Normal [facility] Comprehensive metabolic 2000 panelon 2023 Albumin [Mass/Vol] 4.4 g/dL Normal 3.9-4.9 [facility] Comment on above: Order Comment: Speci men Type: BLOOD SPECIMEN Ordering Facility: [facility] Address: [address] [place] [address] Performed By: #### 2 4323-8, 74244-8 #### [facility] CLIA [id number] [address] [place] [address] [place] ALP [Catalytic activity/Vol] 68 U/L Normal 34-123 [facility] Comment on above: Order Comment: Speci men Type: BLOOD SPECIMEN Ordering Facility: [facility] Address: [address] [place] [address] Performed By: #### 2 4323-8, 88938-2 #### [facility] [place] [id number] [address] [place] [address] [place] ALT [Catalytic activity/Vol] 28 U/L Normal 7-38 [facility] Comment on above: Order Comment: Speci men Type: BLOOD SPECIMEN Ordering Facility: [facility] Address: [address] [place] [address] Performed By: #### 2 4323-8, 46714-8 #### [facility] [place] [id number] [address] [place] [address] [place] Anion gap [Moles/Vol] 10 mmol/L Normal 9-18 [facility] Comment on above: Order Comment: Speci men Type: BLOOD SPECIMEN Ordering Facility: [facility] Address: [address] [place] [address] Performed By: #### 2 4323-8, 39762-3 #### [facility] [place] [id number] [address] [place] [address] [place] AST [Catalytic activity/Vol] 22 U/L Normal 13-35 [facility] Comment on above: Order Comment: Speci men Type: BLOOD SPECIMEN Ordering Facility: [facility] Address: [address] [place] [address] Performed By: #### 2 4323-8, 29529-7 #### [facility] [place] [id number] [address] [place] [address] [place] Bilirubin [Mass/Vol] 0.4 mg/dL Normal 0.2-1.3 [facility] Comment on above: Order Comment: Speci men Type: BLOOD SPECIMEN Ordering Facility: [facility] Address: [address] [place] [address] Performed By: #### 2 4323-8, 12824-1 #### [facility] CLIA [id number] [address] [place] [address] [place] Calcium [Mass/Vol] 9.1 mg/dL Normal 8.5-10.2 [facility] Comment on above: Order Comment: Speci men Type: BLOOD SPECIMEN Ordering Facility: [facility] Address: [address] [place] [address] Performed By: #### 2 4323-8, 92053-6 #### [facility] CLIA [id number] [address] [place] [address] [place] Chloride [Moles/Vol] 106 mmol/L High 97-105 [facility] Comment on above: Order Comment: Speci men Type: BLOOD SPECIMEN Ordering Facility: [facility] Address: [address] [place] [address] Performed By: #### 2 4323-8, 57734-6 #### [facility] CLIA [id number] [address] [place] [address] [place] CO2 [Moles/Vol] 25 mmol/L Normal 22-30 [facility] Comment on above: Order Comment: Speci men Type: BLOOD SPECIMEN Ordering Facility: [facility] Address: [address] [place] [address] Performed By: #### 2 4323-8, 57157-0 #### [facility] CLIA [id number] [address] [place] [address] [place] Creatinine [Mass/Vol] 0.90 mg/dL Normal 0.58-0.96 [facility] Comment on above: Order Comment: Speci men Type: BLOOD SPECIMEN Ordering Facility: [facility] Address: [address] [place] [address] Performed By: #### 2 4323-8, 97720-8 #### [facility] [place] [id number] [address] [place] [address] [place] Creatinine and Glomerular filtration rate.predicted panel (S/P/Bld) 86 mL/min/1.73m??? Normal >=60 [facility] Comment on above: Order Comment: Tiffanie spence Type: BLOOD SPECIMEN Ordering Facility: [facility] Address: [address] [place] [address] Result Comment: Kenyatta mated Glomerular Filtration Rate [...] actual GFR. Performed By: #### 2 4323-8, 72621-3 #### [facility] [place] [id number] [address] [place] [address] [place] Glucose [Mass/Vol] 92 mg/dL Normal 74-99 [facility] Comment on above: Order Comment: Tiffanie spence Type: BLOOD SPECIMEN Ordering Facility: [facility] Address: [address] [place] [address] Result Comment: The [place] [employer] (ADA) provides guidance for cutoff [...] Standards of Medical Care in Diabetes 2016, [place] [employer]. Diabetes Care. 2016.39(Suppl 1). Performed By: #### 2 4323-8, 75437-6 #### [facility] [place] [id number] [address] [place] [address] [place] Potassium [Moles/Vol] 4.0 mmol/L Normal 3.7-5.1 [facility] Comment on above: Order Comment: Speci men Type: BLOOD SPECIMEN Ordering Facility: [facility] Address: [address] [place] [address] Performed By: #### 2 4323-8, 92305-5 #### [facility] [id number] [address] [place] [address] [place] Protein [Mass/Vol] 7.4 g/dL Normal 6.3-8.0 [facility] Comment on above: Order Comment: Speci men Type: BLOOD SPECIMEN Ordering Facility: [facility] Address: [address] [place] [address] Performed By: #### 2 4323-8, 68351-2 #### [facility] [id number] [address] [place] [address] [place] Sodium [Moles/Vol] 141 mmol/L Normal 136-144 [facility] Comment on above: Order Comment: Speci men Type: BLOOD SPECIMEN Ordering Facility: [facility] Address: [address] [place] [address] Performed By: #### 2 4323-8, 11969-2 #### [facility] [id number] [address] [place] [address] [place] Urea nitrogen [Mass/Vol] 16 mg/dL Normal 7-21 [facility] Comment on above: Order Comment: Speci men Type: BLOOD SPECIMEN Ordering Facility: [facility] Address: [address] [place] [address] Performed By: #### 2 4323-8, 04276-2 #### [facility] [id number] [address] [place], [place] [id number] [place] Ferritin SerPl-mCncon 2023 Ferritin [Mass/Vol] 73.6 ng/mL Normal 14.7-205.1 [facility] Comment on above: Order Comment: Speci men Type: BLOOD SPECIMEN Ordering Facility: [facility] Address: [address] [place] [address] Performed By: #### 4 542-7, 2276-4 #### [facility] CLIA [id number] [address] [place] [address] [place] Haptoglob SerPl-mCncon 06-20 Haptoglobin [Mass/Vol] 66 mg/dL Normal 31-238 [facility] Comment on above: Order Comment: Speci men Type: BLOOD SPECIMEN Ordering Facility: [facility] Address: [address] [place] [address] Performed By: #### 4 542-7, 2276-4 #### [facility] CLIA [id number] [address] [place] [address] [place] Iron and Iron binding capaci ty panelon 2023 Iron [Mass/Vol] 66 ug/dL Normal 41-186 [facility] Comment on above: Order Comment: Speci men Type: BLOOD SPECIMEN Ordering Facility: [facility] Address: [address] [place] [address] Performed By: #### 2 4323-8, 58477-3 #### [facility] CLIA [id number] [address] [place] [address] [place] Iron binding capacity [Mass/Vol] 352 ug/dL Normal 232-386 [facility] Comment on above: Order Comment: Speci men Type: BLOOD SPECIMEN Ordering Facility: [facility] Address: [address] [place] [address] Performed By: #### 2 4323-8, 34211-4 #### [facility] CLIA [id number] [address] [place] [address] [place] Iron/TIBC [Molar ratio] 18.8 % Normal 15.0-57.0 [facility] Comment on above: Order Comment: Speci men Type: BLOOD SPECIMEN Ordering Facility: [facility] Address: [address] [place] [address] Performed By: #### 2 4323-8, 80290-5 #### [facility] [id number] [address] [place] [address] [place] LDH SerPl-cCncon 2023 LDH [Catalytic activity/Vol] 193 U/L Normal 135-214 [facility] Comment on above: Order Comment: Speci men Type: BLOOD SPECIMEN Ordering Facility: [facility] Address: [address] [place] [address] Performed By: #### 2 532-0 #### [facility] [id number] [address] [place] [address] [place] Retics #on 2023 Reticulocytes (Bld) [#/Vol] 0.09305 10*3/uL High 0.018-0.100 [facility] Comment on above: Order Comment: Speci men Type: BLOOD SPECIMEN Ordering Facility: [facility] Address: [address] [place] [address] Performed By: #### 1 4196-0, 55780-8 #### [facility] [id number] [address] [place] [address] [place] Reticulocytes (Bld) [#/Vol]o n 2023 Reticulocytes/100 RBC (Bld) 2.2 % High 0.4-2.0 [facility] Comment on above: Order Comment: Speci men Type: BLOOD SPECIMEN Ordering Facility: [facility] Address: [address] [place] [address] Performed By: #### 1 4196-0, 17259-2 #### [facility] [id number] [address] [place] [address] OF [facility] CBC AUTO DIFFon 09-20-2022 BASO # 0.0 103/ul Normal 0.0-0.1 The [facility] Comment on above: Performed By: #### C BC ####[facility] [address] [place] [address]Dr. Zuly Aparicio Basophils/100 WBC (Bld) 0.5 % Normal 0.2-2.0 [facility] Comment on above: Performed By: #### C BC ####[facility] [address] [place] [address]Dr. Zuly Aparicio EO # 0.1 103/ul Normal 0.0-0.7 [facility] Comment on above: Performed By: #### C BC ####[facility] [address] [place] [address]Dr. Zuly Aparicio Eosinophils/100 WBC (Bld) 1.5 % Normal 0.9-7.0 The [facility] Comment on above: Performed By: #### C BC ####[facility] [address]qwo[address] [place] [address]Dr. Zuly Aparicio Erythrocyte distribution width (RBC) [Ratio] 15.8 % Critically high 11.0-15.0 [facility] Comment on above: Performed By: #### C BC ####[facility] [address]ox[address] [place] [address]Dr. Zuly Aparicio Hematocrit (Bld) [Volume fraction] 34.1 % Critically low 36.0-48.0 [facility] Comment on above: Performed By: #### C BC ####[facility] [address]ta[address] [place] [address]Dr. Zuly Aparicio Hemoglobin (Bld) [Mass/Vol] 10.1 g/dL Critically low 12.0-16.0 [facility] Comment on above: Performed By: #### C BC ####[facility] [address] [place] [address]Dr. Zuly Aparicio IG # 0.01 10e3/ul Normal 0.00-0.03 [facility] Comment on above: Performed By: #### C BC ####[facility] Awocuvitdb[address] [place] [address]Dr. Zuly Aparicio IG % 0.2 % Normal 0.0-0.5 The [facility] Comment on above: Performed By: #### C BC ####[facility] [address]xv[address] [place] [address]Dr. Zuly Aparicio LYMPH # 1.6 103/ul Normal 1.2-3.8 [facility] Comment on above: Performed By: #### C BC ####[facility] Fixaqywqbj[address] [place] [address]Dr. Zuly Aparicio Lymphocytes/100 WBC (Bld) 39.2 % Normal 20.5-60.0 [facility] Comment on above: Performed By: #### C BC ####[facility] [address]psqmlnxjn[address] [place] [address]Dr. Zuly Aparicio MANUAL DIFF REQ NO Normal [facility] Comment on above: Performed By: #### C BC ####[facility] Wkfzlkzrdt[address] [place] [address]Dr. Zuly Aparicio MCH (RBC) [Entitic mass] 17.7 pg Critically low 26.7-34.0 [facility] Comment on above: Performed By: #### C BC ####[facility] Butsgfhgku[address] [place] [id number]. Zuly Aparicio MCHC (RBC) [Mass/Vol] 29.6 g/dL Critically low 29.9-35.2 [facility] Comment on above: Performed By: #### C BC ####[facility] Deadregsoo[address] [place] [address]Dr. Zuly Aparicio MCV (RBC) [Entitic vol] 59.7 fL Critically low 81.0-99.0 [facility] Comment on above: Performed By: #### C BC ####[facility] Tsvwpiscue[address] [place] [address]Dr. Zuly Aparicio MONO # 0.3 103/ul Normal 0.3-0.8 [facility] Comment on above: Performed By: #### C BC ####[facility] Cvmrzzjiyb[address] [place] [address]Dr. Zuly Aparicio Monocytes/100 WBC (Bld) 6.5 % Normal 1.7-12.0 [facility] Comment on above: Performed By: #### C BC ####[facility] Gmrffunazk[address] [place] [address]Dr. Zuly Aparicio NEUT # 2.1 103/ul Normal 1.4-6.5 [facility] Comment on above: Performed By: #### C BC ####[facility] Kpeuwbbxnt[address] [place] [address]Dr. Zuly Aparicio Neutrophils/100 WBC (Bld) 52.1 % Normal 43.0-75.0 [facility] Comment on above: Performed By: #### C BC ####[facility] Sfkqmxfidc[address] [place] [phone]. Zuly Aparicio Platelet mean volume (Bld) [Entitic vol] 10.0 fL Normal 9.5-13.5 [facility] Comment on above: Performed By: #### C BC ####[facility] Th[address]qrioqes[address] [place] [phone]. Zluy Aparicio PLT 333 103/ul Normal 150-450 [facility] Comment on above: Performed By: #### C BC ####[facility] Slodpegnbw[address] [place] [phone]. Zuly Aparicio RBC 5.71 106/ul Critically high 4.20-5.40 [facility] Comment on above: Performed By: #### C BC ####[facility] Jncueydmpd[address] [place] [phone]. Zuly Aparicio WBC 4.0 103/ul Normal 4.0-11.0 [facility] Comment on above: Performed By: #### C BC ####[facility] [address]tzlrobyzg[address] [place] [phone]. Zuly Aparicio FREE T4on 09-20-2022 Free T4 [Mass/Vol] 1.11 ng/dL Normal 0.76-1.46 [facility] Comment on above: Performed By: #### E JEFERSON HOOPER #### [facility] [address] [place] [address] Dr. Zuly Aparicio IRONon 09-20-2022 Iron [Mass/Vol] 89.0 ug/dL Normal 50.0-170.[address] [facility] Comment on above: Performed By: #### CHAYITO ASHERRO #### [facility] [address] [place] [address] Dr. Zuly Aparicio PROF 14(COMP METB)on 023 Albumin [Mass/Vol] 3.7 g/dL Normal 3.4-5.0 [facility] Comment on above: Performed By: #### CHAYITO ASHERRO #### [facility] [address] [place] [address] Dr. Zuly Aparicio Albumin/Globulin [Mass ratio] 1.0 {ratio} Normal [facility] Comment on above: Performed By: #### CHAYITO ASHERRO #### [facility] [address] [place] [address] Dr. Zuly Aparicio ALP [Catalytic activity/Vol] 63 U/L Normal 46-116 [facility] Comment on above: Performed By: #### CHAYITO ASHERRO #### [facility] [address] [place] [address] Dr. Zuly Aparicio ALT [Catalytic activity/Vol] 50 U/L Normal 14-59 [facility] Comment on above: Performed By: #### CHAYITO ASHERRO #### [facility] [address] [place] [address] Dr. Zuly Aparicio Anion gap [Moles/Vol] 10.4 mmol/L Normal [facility] Comment on above: Performed By: #### CHAYITO ASHERRO #### [facility] [address] [place] [address] Dr. Zuly Aparicio AST [Catalytic activity/Vol] 24 U/L Normal 15-37 [facility] Comment on above: Performed By: #### JEFERSON ASHER #### [facility] [address] [place] [address] Dr. Zuly Aparicio Bilirubin [Mass/Vol] 0.5 mg/dL Normal 0.2-1.0 [facility] Comment on above: Performed By: #### CHAYITO ASHERRO #### [facility] [address] [place] [address] Dr. Zuly Aparicio Calcium [Mass/Vol] 8.8 mg/dL Normal 8.5-10.1 [facility] Comment on above: Performed By: #### CHAYITO ASHERRO #### [facility] [address] [place] [address] Dr. Zuly Aparicio Chloride [Moles/Vol] 108 mmol/L Critically high 98-107 [facility] Comment on above: Performed By: #### CHAYITO ASHERRO #### [facility] [address] [place] [address] Dr. Zuly Aparicio CO2 [Moles/Vol] 27.5 mmol/L Normal 21.0-32.0 [facility] Comment on above: Performed By: #### CHAYITO ASHERRO #### [facility] [address] [place] [address] Dr. Zuly Aparicio Creatinine [Mass/Vol] 0.94 mg/dL Normal 0.55-1.02 [facility] Comment on above: Performed By: #### CHAYITO ASHERRO #### [facility] [address] [place] [address] Dr. Zuly Aparicio EGFR-AF BELGIAN >60 Normal >=60 [facility] Comment on above: Performed By: #### CHAYITO ASHERRO #### [facility] [address] [place] [address] Dr. Zuly Aparicio EGFR-NON AF BELGIAN >60 Normal >=60 [facility] Comment on above: Performed By: #### CHAYITO ASHERRO #### [facility] [address] [place] [address] Dr. Zuly Aparicio Globulin (S) [Mass/Vol] 3.7 g/dL Normal [facility] Comment on above: Performed By: #### CHAYITO ASHERRO #### [facility] [address] [place] [address] [address] Zuly Aparicio Glucose [Mass/Vol] 83 mg/dL Normal 74-106 [facility] Comment on above: Performed By: #### Roshan HOOPER UMICRO #### [facility] [address] [place] [address] [address] Zuly Aparicio Potassium [Moles/Vol] 3.9 mmol/L Normal 3.5-5.1 [facility] Comment on above: Performed By: #### Roshan HOOPER UMICRO #### [facility] [address] [place] [address] Dr. Zuly Aparicio Protein [Mass/Vol] 7.4 g/dL Normal 6.4-8.2 [facility] Comment on above: Performed By: #### Roshan HOOPER UMFAVIOLARO #### [facility] [address] [place] [address] Dr. Zuly Aparicio Sodium [Moles/Vol] 142 mmol/L Normal 136-145 [facility] Comment on above: Performed By: #### Roshan HOOPER UMICRO #### [facility] [address] [place] [address] Dr. Zuly Aparicio Urea nitrogen [Mass/Vol] 14.0 mg/dL Normal 7.0-18.0 [facility] Comment on above: Performed By: #### Roshan HOOPER UMICRO #### [facility] [address] [place] [address] [address] Zuly Aparicio Urea nitrogen/Creatinine [Mass ratio] 14.9 mg/mg Normal [facility] Comment on above: Performed By: #### Roshan HOOPER UMICRO #### [facility] [address] [place] [address] Dr. Zuly Aparicio TSHon 09-20-2022 TSH 1.491 uIU/mL Normal 0.358-3.740 [facility] Comment on above: Performed By: #### Roshan HOOPER UMICRO #### [facility] [address] [place] [address] Dr. Zuly Aparicio VC INJ SCL MILTON WARDROBE TECHNICIAN VEINSon 0 4-11-2023 VC INJ SCL MILTON WARDROBE TECHNICIAN VEINS Patient: TORIE JOHNSTON Exam Date: 09/04/2022 : 1990 Gender:F Ordering : DR SADI JEWELL M.D. Admission #: [id number] Family : Order #: [id number] CLICK HERE TO VIEW EXAM RADIOLOGY REPORT [...] M.D. on 09/04/2022 at 12:00 Normal [facility] Covid-19 PCR (CVDTBH)on SARS-CoV-2 (COVID-19) RNA BORIS+probe Ql (Unsp spec) Not detected Normal NOT DETECTED [facility] Comment on above: Result Comment: This test is not yet approved or cleared by the [place] FDA. When there are no FDA-approved or cleared tests available, and other criteria are met, FDA can make tests available under an emergency access mechanism called an Emergency Use Authorization (EUA). The EUA for this test is supported by the [place] of Health and Human Service's (HHS's) declaration [...] SARS-CoV-2. Performed By: #### T SH #### [facility] [address] [place] [address] Dr. Zuly Aparicio INFLUENZA A AND B AGon 08-27 INFLUANEGH SEE BELOW Normal [facility] Comment on above: Result Comment: Nega tive for Flu A protein angiten. Infection due to Flu A cannot be ruled out. Flu A angiten in the sample may be below the detection limit of the test. Performed By: #### T SH #### [facility] [address] [place] [address] Dr. Zuly Aparicio INFLUBNEGH SEE BELOW Normal [facility] Comment on above: Result Comment: Nega tive for Flu B protein antigen. Infection due to Flu B cannot be ruled out. Flu B antigen in the sample may be below the detection limit of the test. Performed By: #### T SH #### [facility] [address] [place] [address] Dr. Zuly Aparicio INFLUENZA A AG Negative Normal NEGATIVE SEE COMMENT [facility] Comment on above: Performed By: #### T SH #### [facility] [address] [place] [address] Dr. Zuly Aparicio INFLUENZA B AG Negative Normal NEGATIVE SEE COMMENT [facility] Comment on above: Performed By: #### T SH #### [facility] [address] [place] [address] Dr. Zuly Aparicio SYMPTOMATIC COVID-19 ANTIGEN on 08-27-2022 EUA Statement SEE BELOW Normal [facility] Comment on above: Result Comment: This [...] sooner. Performed By: #### C VDAGS #### [facility] [address] [place] [address] Dr. Zuly Aparicio SARS-CoV-2 (COVID-19) RNA BORIS+probe Ql (Unsp spec) Negative Normal NEGATIVE [facility] Comment on above: Performed By: #### C VDAGS #### [facility] [address] [place] [address] Dr. Zuly Aparicio XR CHEST 1 Von [...] JOSE WOOD Date: 2022-08-27 17:17 Normal [facility] VC CONSULT FOLLOWUPon 2022 VC CONSULT FOLLOWUP Patient: TORIE JOHNSTON Exam Date: 08/21/2022 : 1990 Gender:F Ordering : DR SADI JEWELL M.D. Admission #: [id number] Family : Order #: [id number] CLICK HERE TO VIEW EXAM RADIOLOGY REPORT [...] Sadi Jewell MD on 08/21/2022 at 11:18 [facility] VC EXT VENOUS RT LIMITEDon 0 08-21-2022 VC EXT VENOUS RT LIMITED Patient: TORIE JOHNSTON Exam Date: 08/21/2022 : 1990 Gender:F Ordering : DR SADI JEWELL M.D. Admission #: [id number] Family : Order #: [id number] CLICK HERE TO VIEW EXAM RADIOLOGY REPORT [...] Sadi Jewell MD on 08/21/2022 at 09:43 [facility] VC INJ FOAM SCLERO W US MLTI on 08-16-2022 VC INJ FOAM SCLERO W US MLTI Patient: TORIE JOHNSTON Exam Date: 08/16/2022 : 1990 Gender:F Ordering : DR SADI JEWELL M.D. Admission #: [id number] Family : Order #: [id number] CLICK HERE TO VIEW EXAM RADIOLOGY REPORT [...] Jose Wood M.D. on 08/16/2022 at 11:58 [facility] W MANUAL DIFFon 05-16- 22 ATYPICAL LYMPH # 0.32 103/ul Normal [facility] Comment on above: Performed By: #### T SH #### [facility] [address] [place] [address] Dr. Zuly Aparicio ATYPICAL LYMPH % 3 % Normal [facility] Comment on above: Performed By: #### T SH #### [facility] [address] [place] [address] [address] Zuly Aparicio BAND # 0.0 103/ul Normal 0.0-0.3 [facility] Comment on above: Performed By: #### T SH #### [facility] [address] [place] [address] Dr. Zuly Aparicio BAND % 0 % Normal 0-5 [facility] Comment on above: Performed By: #### T SH #### [facility] [address] [place] [address] Dr. Zuly Aparicio BASOM # 0.00 103/ul Normal 0.00-0.10 [facility] Comment on above: Performed By: #### T SH #### [facility] [address] [place] [address] Dr. Zuly Aparicio BASOM % 0.0 % Critically low 0.2-2.0 [facility] Comment on above: Performed By: #### T SH #### [facility] [address] [place] [address] Dr. Zuly Aparicio BLAST # Normal [facility] Comment on above: Performed By: #### T SH #### [facility] [address] [place] [address] Dr. Zuly Aapricio BLAST % Normal [facility] Comment on above: Performed By: #### T SH #### [facility] [address] [place] [address] Dr. Zuly Aparicio CORRECTED WBC Normal 4.0-11.0 [facility] Comment on above: Performed By: #### T SH #### [facility] [address] [place] [address] Dr. Zuly Aparicio EOS # 0.10 103/ul Normal 0.00-0.70 [facility] Comment on above: Performed By: #### T SH #### [facility] [address] [place] [address] [address] Zuly Aparicio EOS% 1.0 % Normal 0.9-7.0 [facility] Comment on above: Performed By: #### T SH #### [facility] [address] [place] [address] [address] Zuly Aparicio HCT 34.3 % Critically low 36.0-48.0 [facility] Comment on above: Performed By: #### T SH #### [facility] [address] [place] [address] [address] Zuly Aparicio HGB 10.6 g/dl Critically low 12.0-16.0 [facility] Comment on above: Performed By: #### T SH #### [facility] [address] [place] [address] Dr. Zuly Aparicio LYMPHM # 0.32 103/ul Critically low 1.20-3.[address] [facility] Comment on above: Performed By: #### T SH #### [facility] [address] [place] [address] [address] Zuly Aparicio LYMPHM% 3.0 % Critically low 20.5-60.0 [facility] Comment on above: Performed By: #### T SH #### [facility] [address] [place] [address] [address] Zuly Aparicio MCH 18.2 pg Critically low 26.7-34.0 [facility] Comment on above: Performed By: #### T SH #### [facility] [address] [place] [address] [address] Zuly Aparicio MCHC 30.9 g/dl Normal 29.9-35.2 [facility] Comment on above: Performed By: #### T SH #### [facility] [address] [place] [address] Dr. Zuly Aparicio MCV 59.0 fL Critically low 81.0-99.0 [facility] Comment on above: Performed By: #### T SH #### [facility] [address] [place] [address] Dr. Zuly Aparicio METAMYELOCYTE # Normal [facility] Comment on above: Performed By: #### T SH #### [facility] [address] [place] [address] Dr. Zuly Aparicio METAMYELOCYTE % Normal [facility] Comment on above: Performed By: #### T SH #### [facility] [address] [place] [address] Dr. Zuly Aparicio MICROCYTOSIS 3+ Normal [facility] Comment on above: Performed By: #### T SH #### [facility] [address] [place] [address] Dr. Zuly Aparicio MONOM# 0.32 103/ul Normal 0.30-0.80 [facility] Comment on above: Performed By: #### T SH #### [facility] [address] [place] [address] Dr. Zuly Aparicio MONOM% 3.0 % Normal 1.7-12.0 [facility] Comment on above: Performed By: #### T SH #### [facility] [address] [place] [address] Dr. Zuly Aparicio MPV 10.6 fL Normal 9.5-13.5 [facility] Comment on above: Performed By: #### T SH #### [facility] [address] [place] [address] Dr. Zuly Aparicio MYELOCYTE # Normal [facility] Comment on above: Performed By: #### T SH #### [facility] [address] [place] [address] Dr. Zuly Aparicio MYELOCYTE % Normal [facility] Comment on above: Performed By: #### T SH #### [facility] [address] [place] [address] Dr. Zuly Aparicio NRBC Normal [facility] Comment on above: Performed By: #### T SH #### [facility] [address] [place] [address] Dr. Zuly Aparicio OVALOCYTES SLIGHT Normal [facility] Comment on above: Performed By: #### T SH #### [facility] [address] [place] [address] [address] Zuly Aparicio PLT 290 103/ul Normal 150-450 [facility] Comment on above: Performed By: #### T SH #### [facility] [address] [place] [address] [address] Zuly Aparicio RBC 5.81 106/ul Critically high 4.20-5.40 [facility] Comment on above: Performed By: #### T SH #### [facility] [address] [place] [address] [address] Zuly Aparicio RDW 15.4 % Critically high 11.0-15.[address] [facility] Comment on above: Performed By: #### T SH #### [facility] [address] [place] [address] [address] Zuly Aparicio SEG # 9.45 103/ul Critically high 1.40-6.50 [facility] Comment on above: Performed By: #### T SH #### [facility] [address] [place] [address] [address] Zuly Aparicio SEG % 90.0 % Critically high 43.0-75.0 [facility] Comment on above: Performed By: #### T SH #### [facility] [address] [address] [address] Zuly Aparicio TOXIC GRANULATION SLIGHT Normal [facility] Comment on above: Performed By: #### T SH #### [facility] [address] [address] [address] Zuly Aparicio WBC 10.5 103/ul Normal 4.0-11.0 [facility] Comment on above: Performed By: #### T SH #### [facility] [address] [address] [address] Zuly Aparicio CULTURE URINEon 05-16-2022 CULTURE URINE Culture Observations : LIGHT GROWTH OF MIXED GENITAL JI. NO POTENTIAL PATHOGENS SEEN. Normal [facility] Comment on above: Performed By: #### U RCX ####[facility] [address] [place] [address]Dr. Zuly Aparicio Covid-19 PCR (CVDTBH)on 04-27 SARS-CoV-2 (COVID-19) RNA BORIS+probe Ql (Unsp spec) Not detected Normal NOT DETECTED [facility] Comment on above: Result Comment: This test is not yet approved or cleared by the [place] FDA. When there are no FDA-approved or cleared tests available, and other criteria are met, FDA can make tests available under an emergency access mechanism called an Emergency Use Authorization (EUA). The EUA for this test is supported by the [employer] of Health and Human Service's (HHS's) declaration [...] SARS-CoV-2. Performed By: #### T SH #### [facility] [address] [place] [address] Dr. Zuly Aparicio ER URINE PROFILEon 2 Bilirubin Ql (U) Negative Normal NEGATIVE [facility] Comment on above: Performed By: #### T SH #### [facility] [address] [place] [address] Dr. Zuly Aparicio Clarity (U) CLEAR Normal CLEAR The [facility] Comment on above: Performed By: #### T SH #### [facility] [address] [place] [address] Dr. Zuly Aparicio Color (U) YELLOW Normal YELLOW [facility] Comment on above: Performed By: #### T SH #### [facility] [address] [place] [address] Dr. Zuly JUDD A micrscopic examination will be performed if indicated. Normal [facility] Comment on above: Performed By: #### T SH #### [facility] [address] [place] [address] Dr. Zuly Aparicio Glucose Ql (U) Negative Normal NEGATIVE The [facility] Comment on above: Performed By: #### T SH #### [facility] [address] [place] [address] Dr. Zuly Aparicio Hemoglobin Ql (U) Negative Normal NEGATIVE [facility] Comment on above: Performed By: #### T SH #### [facility] [address] [place] [address] Dr. Zuly Aparicio Ketones Ql (U) TRACE Abnormal NEGATIVE The [facility] Comment on above: Performed By: #### T SH #### [facility] [address] [place] [address] Dr. Zuly Aparicio LEUKOCYTES TRACE Abnormal NEGATIVE [facility] Comment on above: Performed By: #### T SH #### [facility] [address] [place] [address] Dr. Zuly Aparicio Nitrite Ql (U) Negative Normal NEGATIVE The [facility] Comment on above: Performed By: #### T SH #### [facility] [address] [place] [address] Dr. Zuly Aparicio pH (U) 5.5 [pH] Normal 5-9 [facility] Comment on above: Performed By: #### T SH #### [facility] [address] [place] [address] Dr. Zuly Aparicio SPEC GRAVITY 1.020 Normal 1.005-<=1.02 5 [facility] Comment on above: Performed By: #### T SH #### [facility] [address] [place] [address] Dr. Zuly Aparicio UA PROTEIN Negative Normal NEGATIVE/ TRACE [facility] Comment on above: Performed By: #### T SH #### [facility] [address] [place] [address] Dr. Zuly Aparicio UR MICRO IND INDICATED Normal [facility] Comment on above: Performed By: #### T SH #### [facility] [address] [place] [address] Dr. Zuly Aparicio Urobilinogen Qn (U) 1.0 {Isamar'U}/dL Normal 0.2 - 1. 0 [facility] Comment on above: Performed By: #### T SH #### [facility] [address] [address] [address] Zuly Aparicio INFLUENZA A AND B AGon 05-16 INFLUENZA A AG Negative Normal NEGATIVE SEE COMMENT [facility] Comment on above: Performed By: #### I NFLUAB #### [facility] [address] [address] [address] Zuly Aparicio INFLUENZA B AG Negative Normal NEGATIVE SEE COMMENT [facility] Comment on above: Performed By: #### I NFLUAB #### [facility] [address] [address] [address] Zuly Aparicio INTERNAL CONTROLS Within Normal Limits Normal Wi thin Normal Limits [facility] Comment on above: Performed By: #### I NFLUAB #### [facility] [address] [address] [address] Zuly Aparicio PREG HCG QUALon 05-16-2022 , QUAL Negative Normal NEGATIVE [facility] Comment on above: Performed By: #### T SH #### [facility] [address] [address] [address] Zuly Aparicio PROF 14(COMP METB)on 022 Albumin [Mass/Vol] 3.6 g/dL Normal 3.4-5.0 [facility] Comment on above: Performed By: #### C MP #### [facility] [address] [place] [address] Dr. Zuly Aparicio Albumin/Globulin [Mass ratio] 0.9 {ratio} Normal [facility] Comment on above: Performed By: #### C MP #### [facility] [address] [place] [address] Dr. Zuly Aparicio ALP [Catalytic activity/Vol] 88 U/L Normal 46-116 [facility] Comment on above: Performed By: #### C MP #### [facility] [address] [place] [address] Dr. Zuly Aparicio ALT [Catalytic activity/Vol] 52 U/L Normal 14-59 [facility] Comment on above: Performed By: #### C MP #### [facility] [address] [address] [address] Zuly Aparicio Anion gap [Moles/Vol] 13.4 mmol/L Normal [facility] Comment on above: Performed By: #### C MP #### [facility] [address] [address] [address] Zuly Aparicio AST [Catalytic activity/Vol] 29 U/L Normal 15-37 [facility] Comment on above: Performed By: #### C MP #### [facility] [address] [place] [address] Dr. Zuly Aparicio Bilirubin [Mass/Vol] 1.2 mg/dL Critically high 0.2-1.0 [facility] Comment on above: Performed By: #### C MP #### [facility] [address] [place] [address] Dr. Zuly Aparicio Calcium [Mass/Vol] 8.7 mg/dL Normal 8.5-10.1 [facility] Comment on above: Performed By: #### C MP #### [facility] [address] [place] [address] Dr. Zuly Aparicio Chloride [Moles/Vol] 101 mmol/L Normal 98-107 [facility] Comment on above: Performed By: #### C MP #### [facility] [address] [place] [address] Dr. Zuly Aparicio CO2 [Moles/Vol] 25.5 mmol/L Normal 21.0-32.0 [facility] Comment on above: Performed By: #### C MP #### [facility] [address] [place] [address] Dr. Zuly Aparicio Creatinine [Mass/Vol] 1.07 mg/dL Critically high 0.55-1.02 [facility] Comment on above: Performed By: #### C MP #### [facility] [address] [place] [address] Dr. Zuly Aparicio EGFR-AF BELGIAN >60 Normal >=60 [facility] Comment on above: Performed By: #### C MP #### [facility] [address] [place] [address] Dr. Zuly Aparicio EGFR-NON AF BELGIAN 59 mL/min/1.73m2 Critically low >=60 [facility] Comment on above: Performed By: #### C MP #### [facility] [address] [address] [address] Zuly Aparicio Globulin (S) [Mass/Vol] 4.0 g/dL Normal [facility] Comment on above: Performed By: #### C MP #### [facility] [address] [address] [address] Zuly Aparicio Glucose [Mass/Vol] 111 mg/dL Critically high 74-106 T [facility] Comment on above: Performed By: #### C MP #### [facility] [address] [place] [address] Dr. Zuly Aparicio Potassium [Moles/Vol] 3.9 mmol/L Normal 3.5-5.1 [facility] Comment on above: Performed By: #### C MP #### [facility] [address] [address] [address] Zuly Aparicio Protein [Mass/Vol] 7.6 g/dL Normal 6.4-8.2 [facility] Comment on above: Performed By: #### C MP #### [facility] [address] [place] [address] Dr. Zuly Aparicio Sodium [Moles/Vol] 136 mmol/L Normal 136-145 [facility] Comment on above: Performed By: #### C MP #### [facility] [address] [address] [address] Zuly Aparicio Urea nitrogen [Mass/Vol] 11.0 mg/dL Normal 7.0-18.0 [facility] Comment on above: Performed By: #### C MP #### [facility] [address] [place] [address] Dr. Zuly Aparicio Urea nitrogen/Creatinine [Mass ratio] 10.3 mg/mg Normal [facility] Comment on above: Performed By: #### C MP #### [facility] [address] [place] [address] Dr. Zuly Aparicio STREPT SCREENon 05-16-2022 STREP SCREEN A Positive Abnormal NEGATIVE The [facility] Comment on above: Performed By: #### E CHAYITO HOOPERRO #### [facility] [address] [place] [address] Dr. Zuly Aparicio URINE MICROSCOPIC ONLYon BACTERIA MODERATE Abnormal NONE SEEN The [facility] Comment on above: Performed By: #### T SH #### [facility] [address] [place] [address] Dr. Zuly Aparicio Bacteria identified Cx Nom (U) INDICATED Normal [facility] Comment on above: Performed By: #### T SH #### [facility] [address] [place] [address] Dr. Zuly Aparicio CAST NONE SEEN Normal NONE SEEN [facility] Comment on above: Performed By: #### T SH #### [facility] [address] [place] [address] Dr. Zuly Aparicio Crystals LM Nom (Urine sed) NONE SEEN Normal NONE SEEN [facility] Comment on above: Performed By: #### T SH #### [facility] [address] [place] [address] Dr. Zuly Aparicio Epithelial cells LM Ql (Urine sed) MANY Abnormal NONE SEEN /RARE [facility] Comment on above: Performed By: #### T SH #### [facility] [address] [place] [address] Dr. Zuly Aparicio MUCOUS NONE SEEN Normal NONE SEEN [facility] Comment on above: Performed By: #### T SH #### [facility] [address] [place] [address] Dr. Zuly Aparicio RBC 2-5 Abnormal 0-2 [facility] Comment on above: Performed By: #### T SH #### [facility] [address] [place] [address] Dr. Zuly Aparicio WBC 5-10 Abnormal NONE SEEN [facility] Comment on above: Performed By: #### T SH #### [facility] [address] [place] [address] Dr. Zuly Aparicio XR CHEST 1 Von [...] PAKO JERRY Date: 2022-05-16 05:03 Normal [facility] AMYLASEon 04-19-2022 Amylase [Catalytic activity/Vol] 41 U/L Normal 25-115 [facility] Comment on above: Performed By: #### L IPA, ANA #### [facility] [address] [place], [place] [address] Dr. Zuly Aparicio CBC AUTO DIFFon 04-19-2022 BASO # 0.0 103/ul Normal 0.0-0.1 [facility] Comment on above: Performed By: #### C BC ####[facility] [address] [address]Dr. Zuly Aparicio Basophils/100 WBC (Bld) 0.4 % Normal 0.2-2.0 [facility] Comment on above: Performed By: #### C BC ####[facility] [address] [address]Dr. Zuly Aparicio EO # 0.2 103/ul Normal 0.0-0.7 [facility] Comment on above: Performed By: #### C BC ####[facility] [address] [address]Dr. Zuly Aparicio Eosinophils/100 WBC (Bld) 3.2 % Normal 0.9-7.0 [facility] Comment on above: Performed By: #### C BC ####[facility] [address] [address]DrNikia Aparicio Erythrocyte distribution width (RBC) [Ratio] 15.7 % Critically high 11.0-15.0 [facility] Comment on above: Performed By: #### C BC ####[facility] [address] [address]Dr. Zuly Aparicio Hematocrit (Bld) [Volume fraction] 33.1 % Critically low 36.0-48.0 [facility] Comment on above: Performed By: #### C BC ####[facility] [address] [address]Dr. Zuly Aparicio Hemoglobin (Bld) [Mass/Vol] 10.3 g/dL Critically low 12.0-16.0 [facility] Comment on above: Performed By: #### C BC ####[facility] [address] [address]Dr. Lolacuauhtemoc Markus IG # 0.01 10e3/ul Normal 0.00-0.03 [facility] Comment on above: Performed By: #### C BC ####[facility] [address] [place], [place] [address]Dr. Zuly Aparicio IG % 0.2 % Normal 0.0-0.5 [facility] Comment on above: Performed By: #### C BC ####[facility] [address] [place], [place] [address]Dr. Zuly Aparicio LYMPH # 1.8 103/ul Normal 1.2-3.8 [facility] Comment on above: Performed By: #### C BC ####[facility] [address] [place], [place] [address]Dr. Zuly Aparicio Lymphocytes/100 WBC (Bld) 34.5 % Normal 20.5-60.0 [facility] Comment on above: Performed By: #### C BC ####[facility] [address] [place], [place] [address]Dr. Zuly Aparicio MANUAL DIFF REQ NO Normal [facility] Comment on above: Performed By: #### C BC ####[facility] [address] [place], [place] [address]Dr. Zuly Aparicio MCH (RBC) [Entitic mass] 18.5 pg Critically low 26.7-34.0 [facility] Comment on above: Performed By: #### C BC ####[facility] [address] [place], [place] [address]Dr. Zuly Aparicio MCHC (RBC) [Mass/Vol] 31.1 g/dL Normal 29.9-35.2 [facility] Comment on above: Performed By: #### C BC ####[facility] [address] [id number]. Zuly Aparicio MCV (RBC) [Entitic vol] 59.3 fL Critically low 81.0-99.0 [facility] Comment on above: Performed By: #### C BC ####[facility] [address] [address]Dr. Zuly Markus MONO # 0.3 103/ul Normal 0.3-0.8 [facility] Comment on above: Performed By: #### C BC ####[facility] [address] [address]Dr. Lolacuauhtemoc Aparicio Monocytes/100 WBC (Bld) 5.9 % Normal 1.7-12.0 [facility] Comment on above: Performed By: #### C BC ####[facility] [address] [place], [place] [address]Dr. Zuly Aparicio NEUT # 2.9 103/ul Normal 1.4-6.5 [facility] Comment on above: Performed By: #### C BC ####[facility] [address] [place], [place] [address]Dr. Lolacuauhtemoc Aparicio Neutrophils/100 WBC (Bld) 55.8 % Normal 43.0-75.0 [facility] Comment on above: Performed By: #### C BC ####[facility] [address] [place], [place] [address]Dr. Lolacuauhtemoc Aparicio Platelet mean volume (Bld) [Entitic vol] 10.1 fL Normal 9.5-13.5 [facility] Comment on above: Performed By: #### C BC ####[facility] [address] [place], [place] [address]Dr. Zuly Aparicio PLT 341 103/ul Normal 150-450 [facility] Comment on above: Performed By: #### C BC ####[facility] [address] [address]Dr. Zuly Aparicio RBC 5.58 106/ul Critically high 4.20-5.40 [facility] Comment on above: Performed By: #### C BC ####[facility] [address] [place], [place] [address]VjNikia Aparicio WBC 5.3 103/ul Normal 4.0-11.0 [facility] Comment on above: Performed By: #### C BC ####[facility] [address] [place], [place] [address]Mo. [address] CT ABD/PELVIS WO CONon 04-19 [...] JOSEDANI RICKETTS Date: 2022-04-19 21:52 Normal [facility] ER URINE PROFILEon 2 Bilirubin Ql (U) Negative Normal NEGATIVE The [facility] Comment on above: Performed By: #### E RUR, PREGU ####[facility] [address] [place], [place] [address]Dr. Yilan Aparicio Clarity (U) CLEAR Normal CLEAR [facility] Comment on above: Performed By: #### E RUR, PREGU ####[facility] [address] [place], [place] [address]Dr. Yilan Aparicio Color (U) LT. YELLOW Normal YELLOW [facility] Comment on above: Performed By: #### E RUR, PREGU ####[facility] [address] [place], [place] [address]Dr. Yilan Aparicio ERUAHD A micrscopic examination will be performed if indicated. Normal [facility] Comment on above: Performed By: #### E RUR, PREGU ####[facility] [address] [place], [place] [address]Dr. Yilan Aparicio Glucose Ql (U) Negative Normal NEGATIVE The [facility] Comment on above: Performed By: #### E RUR, PREGU ####[facility] [address] [place], [place] [address]Dr. Yilan Aparicio Hemoglobin Ql (U) Negative Normal NEGATIVE [facility] Comment on above: Performed By: #### E RUR, PREGU ####[facility] [address] [place], [place] [address]Dr. Yilan Aparicio Ketones Ql (U) Negative Normal NEGATIVE The [facility] Comment on above: Performed By: #### E RUR, PREGU ####[facility] [address] [place], [place] [address]Dr. Yilan Aparicio LEUKOCYTES Negative Normal NEGATIVE [facility] Comment on above: Performed By: #### E RUR, PREGU ####[facility] [address] [place], [place] [address]Dr. Yilan Aparicio Nitrite Ql (U) Negative Normal NEGATIVE The [facility] Comment on above: Performed By: #### E RUR, PREGU ####[facility] [address] [address]DrNikia Aparicio pH (U) 6.0 [pH] Normal 5-9 [facility] Comment on above: Performed By: #### E RUR, PREGU ####[facility] [address] [address]Dr. Zuly Aparicio SPEC GRAVITY 1.010 Normal 1.005-<=1.02 5 [facility] Comment on above: Performed By: #### E RUR, PREGU ####[facility] [address] [address]DrNikia Aparicio UA PROTEIN Negative Normal NEGATIVE/ TRACE [facility] Comment on above: Performed By: #### E RUR, PREGU ####[facility] [address] [place], [place] [address]Dr. Zuly Aparicio UR MICRO IND NOT INDICATED Normal [facility] Comment on above: Performed By: #### E RUR, PREGU ####[facility] [address] [place], [place] [address]DrNikia Aparicio Urobilinogen Qn (U) 0.2 {Isamar'U}/dL Normal 0.2 - 1. 0 [facility] Comment on above: Performed By: #### E RUR, PREGU ####[facility] [address] [place], [place] [address]DrNikia Aparicio LIPASEon 04-19-2022 Lipase [Catalytic activity/Vol] 161.0 U/L Normal 73.0-393.0 [facility] Comment on above: Performed By: #### L IPA, ANA #### [facility] [address] [address] [address] Zuly Aparicio URon 04-19-2022 , QUAL Negative Normal NEGATIVE [facility] Comment on above: Performed By: #### E RUR, PREGU ####[facility] [address] [place], [place] [address]Dr. Zuly Aparicio PROF 14(COMP METB)on 04-19- 022 Albumin [Mass/Vol] 3.9 g/dL Normal 3.4-5.0 [facility] Comment on above: Performed By: #### T SH #### [facility] [address] [place] [address] Dr. Zuly Aparicio Albumin/Globulin [Mass ratio] 1.1 {ratio} Normal [facility] Comment on above: Performed By: #### T SH #### [facility] [address] [place] [address] Dr. Zuly Aparicio ALP [Catalytic activity/Vol] 69 U/L Normal 46-116 [facility] Comment on above: Performed By: #### T SH #### [facility] [address] [place] [address] Dr. Zuly Aparicio ALT [Catalytic activity/Vol] 46 U/L Normal 14-59 [facility] Comment on above: Performed By: #### T SH #### [facility] [address] [place] [address] Dr. Zuly Aparicio Anion gap [Moles/Vol] 12.1 mmol/L Normal [facility] Comment on above: Performed By: #### T SH #### [facility] [address] [place] [address] Dr. Zuly Aparicio AST [Catalytic activity/Vol] 24 U/L Normal 15-37 [facility] Comment on above: Performed By: #### T SH #### [facility] [address] [place] [address] Dr. Zuly Aparicio Bilirubin [Mass/Vol] 0.5 mg/dL Normal 0.2-1.0 [facility] Comment on above: Performed By: #### T SH #### [facility] [address] [place] [address] Dr. Zuly Aparicio Calcium [Mass/Vol] 8.7 mg/dL Normal 8.5-10.1 [facility] Comment on above: Performed By: #### T SH #### [facility] [address] [place] [address] Dr. Zuly Aparicio Chloride [Moles/Vol] 106 mmol/L Normal 98-107 [facility] Comment on above: Performed By: #### T SH #### [facility] [address] [place] [address] Dr. Zuly Aparicio CO2 [Moles/Vol] 25.4 mmol/L Normal 21.0-32.0 [facility] Comment on above: Performed By: #### T SH #### [facility] [address] [address] [address] Zuly Aparicio Creatinine [Mass/Vol] 1.11 mg/dL Critically high 0.55-1.02 [facility] Comment on above: Performed By: #### T SH #### [facility] [address] [place] [address] Dr. Zuly Aparicio EGFR-AF BELGIAN >60 Normal >=60 [facility] Comment on above: Performed By: #### T SH #### [facility] [address] [place] [address] Dr. Zuly Aparicio EGFR-NON AF BELGIAN 57 mL/min/1.73m2 Critically low >=60 [facility] Comment on above: Performed By: #### T SH #### [facility] [address] [place] [address] Dr. Zuly Aparicio Globulin (S) [Mass/Vol] 3.5 g/dL Normal [facility] Comment on above: Performed By: #### T SH #### [facility] [address] [place] [address] Dr. Zuly Aparicio Glucose [Mass/Vol] 96 mg/dL Normal 74-106 [facility] Comment on above: Performed By: #### T SH #### [facility] [address] [place] [address] Dr. Zuly Aparicio Potassium [Moles/Vol] 3.5 mmol/L Normal 3.5-5.1 [facility] Comment on above: Performed By: #### T SH #### [facility] [address] [place] [address] Dr. Zuly Aparicio Protein [Mass/Vol] 7.4 g/dL Normal 6.4-8.2 [facility] Comment on above: Performed By: #### T SH #### [facility] [address] [place] [address] Dr. Zuly Aparicio Sodium [Moles/Vol] 140 mmol/L Normal 136-145 [facility] Comment on above: Performed By: #### T SH #### [facility] [facility] [address] [place] [address] Dr. Zuly Aparicio Urea nitrogen [Mass/Vol] 12.0 mg/dL Normal 7.0-18.0 [facility] Comment on above: Performed By: #### T SH #### [facility] [address] [place] [address] Dr. Zuly Aparicio Urea nitrogen/Creatinine [Mass ratio] 10.8 mg/mg Normal [facility] Comment on above: Performed By: #### T SH #### [facility] [address] [place] [address] Dr. Zuly Aparicio CBC AUTO DIFFon 12-20-2021 BASO # 0.0 103/ul Normal 0.0-0.1 [facility] Comment on above: Performed By: #### T SH #### [facility] [address] [place] [address] Dr. Zuly Aparicio Basophils/100 WBC (Bld) 0.1 % Critically low 0.2-2.0 [facility] Comment on above: Performed By: #### T SH #### [facility] [address] [place] [address] Dr. Zuly Aparicio EO # 0.1 103/ul Normal 0.0-0.7 [facility] Comment on above: Performed By: #### T SH #### [facility] [address] [place] [address] Dr. Zuly Aparicio Eosinophils/100 WBC (Bld) 1.1 % Normal 0.9-7.0 [facility] Comment on above: Performed By: #### T SH #### [facility] [address] [place] [address] Dr. Zuly Aparicio Erythrocyte distribution width (RBC) [Ratio] 15.9 % Critically high 11.0-15.0 [facility] Comment on above: Performed By: #### T SH #### [facility] [address] [place] [address] Dr. Zuly Aparicio Hematocrit (Bld) [Volume fraction] 35.2 % Critically low 36.0-48.0 [facility] Comment on above: Performed By: #### T SH #### [facility] [address] [place] [address] Dr. Zuly Aparicio Hemoglobin (Bld) [Mass/Vol] 10.9 g/dL Critically low 12.0-16.0 [facility] Comment on above: Performed By: #### T SH #### [facility] [address] [place] [address] Dr. Zuly Aparicio IG # 0.02 10e3/ul Normal 0.00-0.03 [facility] Comment on above: Performed By: #### T SH #### [facility] [address] [place] [address] Dr. Zuly Aparicio IG % 0.3 % Normal 0.0-0.5 [facility] Comment on above: Performed By: #### T SH #### [facility] [address] [place] [address] Dr. Zuly Apaircio LYMPH # 2.0 103/ul Normal 1.2-3.8 [facility] Comment on above: Performed By: #### T SH #### [facility] [address] [place] [address] Dr. Zuly Aparicio Lymphocytes/100 WBC (Bld) 28.0 % Normal 20.5-60.0 [facility] Comment on above: Performed By: #### T SH #### [facility] [address] [place] [address] Dr. Zuly Aparicio MANUAL DIFF REQ NO Normal [facility] Comment on above: Performed By: #### T SH #### [facility] [address] [place] [address] Dr. Zuly Aparicio MCH (RBC) [Entitic mass] 18.4 pg Critically low 26.7-34.0 [facility] Comment on above: Performed By: #### T SH #### [facility] [address] [place] [address] Dr. Zuly Aparicio MCHC (RBC) [Mass/Vol] 31.0 g/dL Normal 29.9-35.2 [facility] Comment on above: Performed By: #### T SH #### [facility] [address] [place] [address] Dr. Zuly Aparicio MCV (RBC) [Entitic vol] 59.3 fL Critically low 81.0-99.0 [facility] Comment on above: Performed By: #### T SH #### [facility] [address] [place] [address] Dr. Zuly Aparicio MONO # 0.4 103/ul Normal 0.3-0.8 [facility] Comment on above: Performed By: #### T SH #### [facility] [address] [place] [address] Dr. Zuly Aparicio Monocytes/100 WBC (Bld) 4.8 % Normal 1.7-12.0 [facility] Comment on above: Performed By: #### T SH #### [facility] [address] [place] [address] Dr. Zuly Aparicio NEUT # 4.7 103/ul Normal 1.4-6.5 [facility] Comment on above: Performed By: #### T SH #### [facility] [address] [place] [address] Dr. Zuly Aparicio Neutrophils/100 WBC (Bld) 65.7 % Normal 43.0-75.0 [facility] Comment on above: Performed By: #### T SH #### [facility] [address] [place] [address] Dr. Zuly Aparicio Platelet mean volume (Bld) [Entitic vol] 10.2 fL Normal 9.5-13.5 [facility] Comment on above: Performed By: #### T SH #### [facility] [address] [place] [address] Dr. Zuly Aparicio PLT 338 103/ul Normal 150-450 [facility] Comment on above: Performed By: #### T SH #### [facility] [address] [place], [place] [address] Dr. Zuly Aparicio RBC 5.94 106/ul Critically high 4.20-5.40 [facility] Comment on above: Performed By: #### T SH #### [facility] [address] [place], [place] [address] Dr. Zuly Aparicio WBC 7.2 103/ul Normal 4.0-11.0 [facility] Comment on above: Performed By: #### T SH #### [facility] [address] [place], [place] [address] HEAD WO CONon [...] LEROY PRETTY Date: 2021-12-20 21:04 Normal [facility] CULTURE URINEon 12-20-2021 CULTURE URINE Culture Observations : LIGHT GROWTH OF MIXED GENITAL JI. NO POTENTIAL PATHOGENS SEEN. Normal [facility] Comment on above: Performed By: #### U RCX ####[facility] [id number] [place] [address]Dr. Zuly Aparicio ER URINE PROFILEon 2 Bilirubin Ql (U) Negative Normal NEGATIVE [facility] Comment on above: Performed By: #### TASHA ASHERICRO #### [facility] [address] [place] [address] [address] Zuly Aparicio Clarity (U) CLEAR Normal CLEAR [facility] Comment on above: Performed By: #### Roshan HOOPER UMICRO #### [facility] [address] [place] [address] Dr. Zuly Aparicio Color (U) LT. YELLOW Normal YELLOW [facility] Comment on above: Performed By: #### TASHA ASHERICRO #### [facility] [address] [place] [address] Dr. Zuly JUDD A micrscopic examination will be performed if indicated. Normal [facility] Comment on above: Performed By: #### TASHA ASHERICRO #### [facility] [address] [place] [address] Dr. Zuly Aparicio Glucose Ql (U) Negative Normal NEGATIVE [facility] [place] [facility] Comment on above: Performed By: #### TASHA ASHERICRO #### [facility] [address] [place] [address] Dr. Zuly Aparicio Hemoglobin Ql (U) LARGE Abnormal NEGATIVE [facility] Comment on above: Performed By: #### Roshan HOOPER UMICRO #### [facility] [address] [place] [address] [address] Zuly Aparicio Ketones Ql (U) Negative Normal NEGATIVE [facility] Comment on above: Performed By: #### Roshan HOOPER UMICRO #### [facility] [address] [place] [address] Dr. Zuly Aparicio LEUKOCYTES Negative Normal NEGATIVE [facility] Comment on above: Performed By: #### Roshan HOOPER UMICRO #### [facility] [address] [place] [address] Dr. Zuly Aparicio Nitrite Ql (U) Negative Normal NEGATIVE [facility] Comment on above: Performed By: #### CHAYITO ASHERRO #### [facility] [address] [place] [address] Dr. Zuly Aparicio pH (U) 6.0 [pH] Normal 5-9 [facility] Comment on above: Performed By: #### CHAYITO ASHERRO #### [facility] [address] [place] [address] Dr. Zuly Aparicio SPEC GRAVITY 1.015 Normal 1.005-<=1.02 5 [facility] Comment on above: Performed By: #### CHAYITO ASHERRO #### [facility] [address] [place] [address] Dr. Zuly Aparicio UA PROTEIN Negative Normal NEGATIVE/ TRACE [facility] Comment on above: Performed By: #### CHAYITO ASHERRO #### [facility] [address] [place] [address] Dr. Zuly Aparicio UR MICRO IND INDICATED Normal [facility] Comment on above: Performed By: #### Roshan HOOPER FAVIOLARO #### [facility] [address] [place] [address] Dr. Zuly Aparicio Urobilinogen Qn (U) 1.0 {Isamar'U}/dL Normal 0.2 - 1. 0 [facility] Comment on above: Performed By: #### Roshan HOOPER FAVIOLARO #### [facility] [address] [place] [address] Dr. Zuly Aparicio PROF 14(COMP METB)on 022 Albumin [Mass/Vol] 4.1 g/dL Normal 3.4-5.0 [facility] Comment on above: Performed By: #### T SH #### [facility] [address] [place] [address] Dr. uZly Aparicio Albumin/Globulin [Mass ratio] 1.1 {ratio} Normal [facility] Comment on above: Performed By: #### T SH #### [facility] [address] [place] [address] Dr. Zuly Aparicio ALP [Catalytic activity/Vol] 60 U/L Normal 46-116 [facility] Comment on above: Performed By: #### T SH #### [facility] [address] [place] [address] [address] Zuly Aparicio ALT [Catalytic activity/Vol] 52 U/L Normal 14-59 [facility] Comment on above: Performed By: #### T SH #### [facility] [address] [place] [address] Dr. Zuly Aparicio Anion gap [Moles/Vol] 11.4 mmol/L Normal [facility] Comment on above: Performed By: #### T SH #### [facility] [address] [place] [address] Dr. Zuly Aparicio AST [Catalytic activity/Vol] 25 U/L Normal 15-37 [facility] Comment on above: Performed By: #### T SH #### [facility] [address] [place] [address] Dr. Zuly Aparicio Bilirubin [Mass/Vol] 0.4 mg/dL Normal 0.2-1.0 [facility] Comment on above: Performed By: #### T SH #### [facility] [address] [place] [address] Dr. Zuly Aparicio Calcium [Mass/Vol] 8.7 mg/dL Normal 8.5-10.1 [facility] Comment on above: Performed By: #### T SH #### [facility] [address] [place] [address] Dr. Zuly Aparicio Chloride [Moles/Vol] 105 mmol/L Normal 98-107 [facility] Comment on above: Performed By: #### T SH #### [facility] [address] [place] [address] Dr. Zuly Aparicio CO2 [Moles/Vol] 26.3 mmol/L Normal 21.0-32.0 [facility] Comment on above: Performed By: #### T SH #### [facility] [address] [place] [address] Dr. Zuly Aparicio Creatinine [Mass/Vol] 1.06 mg/dL Critically high 0.55-1.02 [facility] Comment on above: Performed By: #### T SH #### [facility] [address] [place] [address] [address] Zuly Aparicio EGFR-AF BELGIAN >60 Normal >=60 [facility] Comment on above: Performed By: #### T SH #### [facility] [address] [place] [address] [address] Zuly Aparicio EGFR-NON AF BELGIAN =60 Normal >=60 [facility] Comment on above: Performed By: #### T SH #### [facility] [address] [place] [address] [address] Zuly Aparicio Globulin (S) [Mass/Vol] 3.6 g/dL Normal [facility] Comment on above: Performed By: #### T SH #### [facility] [address] [place] [address] Dr. Zuly Aparicio Glucose [Mass/Vol] 99 mg/dL Normal 74-106 [facility] Comment on above: Performed By: #### T SH #### [facility] [address] [place] [address] [address] Zuly Aparicio Potassium [Moles/Vol] 3.7 mmol/L Normal 3.5-5.1 [facility] Comment on above: Performed By: #### T SH #### [facility] [address] [place] [address] Dr. Zuly Aparicio Protein [Mass/Vol] 7.7 g/dL Normal 6.4-8.2 [facility] Comment on above: Performed By: #### T SH #### [facility] [address] [place] [address] Dr. Zuly Aparicio Sodium [Moles/Vol] 139 mmol/L Normal 136-145 [facility] Comment on above: Performed By: #### T SH #### [facility] [address] [place] [address] Dr. Zuly Aparicio Urea nitrogen [Mass/Vol] 17.0 mg/dL Normal 7.0-18.0 [facility] Comment on above: Performed By: #### T SH #### [facility] [address] [place] [address] Dr. Zuly Aparicio Urea nitrogen/Creatinine [Mass ratio] 16.0 mg/mg Normal [facility] Comment on above: Performed By: #### T SH #### [facility] [address] [place] [address] Dr. Zuly Aparicio TSHon 12-20-2021 TSH 3.279 uIU/mL Normal 0.358-3.740 [facility] Comment on above: Performed By: #### T SH #### [facility] [address] [place] [address] Dr. Zuly Aparicio URINE MICROSCOPIC ONLYon BACTERIA SMALL Abnormal NONE SEEN [facility] Comment on above: Performed By: #### Roshan HOOPER UMICRO #### [facility] [address] [place] [address] Dr. Zuly Aparicio Bacteria identified Cx Nom (U) INDICATED Normal [facility] Comment on above: Performed By: #### Roshan HOOPER UMICRO #### [facility] [address] [place] [address] Dr. Zuly Aparicio CAST NONE SEEN Normal NONE SEEN [facility] Comment on above: Performed By: #### Roshan HOOPER UMICRO #### [facility] [address] [place] [address] Dr. Zuly Aparicio Crystals LM Nom (Urine sed) NONE SEEN Normal NONE SEEN [facility] Comment on above: Performed By: #### Roshan HOOPER UMICRO #### [facility] [address] [place] [address] Dr. Zuly Aparicio Epithelial cells LM Ql (Urine sed) MANY Abnormal NONE SEEN /RARE [facility] Comment on above: Performed By: #### Roshan HOOPER UMICRO #### [facility] [address] [place] [address] Dr. Zuly Aparicio MUCOUS NONE SEEN Normal NONE SEEN [facility] Comment on above: Performed By: #### Roshan HOOPER UMICRO #### [facility] [address] [place] [address] Dr. Zuly Aparicio RBC 0-2 Normal 0-2 [facility] Comment on above: Performed By: #### JEFERSON ASHER #### [facility] [address] [place], [place] [address] Dr. Zuly Aparicio WBC 2-5 Abnormal NONE SEEN [facility] Comment on above: Performed By: #### JEFERSON ASHER #### [facility] [address] [place], [place] [address] Dr. Zuly Aparicio XR CHEST 1 Von [...] LUDY GARCIA Date: 2021-12-20 21:21 Normal [facility] Coding Summary.on 12-13-2021 Coding Summary. [id number] h0bWw+PGhlYWQ+LE9QLGF wF58hkWAgiK7LW6cEGK8H FSAACIXEWY1EUC1qpYG5C AwaY4KkwlEd SznvmVMuLP52VSy7PXP9g OoaIOvphO1isDAvD3q0Sk SzTU60hA19LWeyWUNyAwR 3LjZpbjsgbWFy Z6deMgQmiHPbXyt+PHRhY mxlIHdpZHRoPScxMDAlJy AlqJmcVC6cXw3lEQTsSTF vbGxhcHNlOiBj k5dbIEZhHKptNI8seEwxY 4MezOV1GFIol4z0Ku66xY I+DIOoIOK9xZzhOLxlx81 9UxWic1dbRCL9 pSWtFNdgZEG8Q96kz0C3E BGrVEXfQFT3bPY6nC3piG lmlvniK4HqkVEdDxH2UKO 9iUJojV8yeOog ofrxuL1vCns+Z27YOK7FO XKZBJ1GYde1C8GjMrzodO I+KG16EOIwQM38xPBjnOL jd7ldeBh8RwCx KTAgBFR9bVqjAOthx5RuU IYbA14lgERwd1X6MTXcrT sbsVIlYsKiaXR1rD7cOBa xferpt2txuqsi Huwyj9jqac03xP36F80pT MwvQYWpMUS3NDIhAXAuzV qgnu0jeJ5fDy9+KJulh2j ni5buaLy6GvBz ABVognWkpCbwYMX7l8QbA r02N7EdoRhjs0DlItj2dx 57uCSav6T7bDU1VCymMRE xeB1tIJwsLaX6 GSDlRbCfyW79fKYlLFtyH h7tjFsneJywEF2rVVNoqv qvWGHtpS0nZGLnrZLhoVw wDX2kBWUsmiwk f378IpDfGOS1WVXwyVMbV 8TefN2aQoGeIYKiFBZoT1 DgnCYvTPznO939BFdlOvC 9TTNcsfGzQ3Bv VWUomZvdZjA1a2R5Og0Pb 8TyjwxdKDW7IOetCEU4Za OkOlIbPqT6S3IqVbz0NMB jwOqpHB8cJ9Sl XJBmnwbrdktxjQG9FJMaP AFqhA00aFHfCWraWs4ae5 K8d029AWYjLWWhrG17Ve9 udDogMTBwdCBU xG1wvtcza0srrhzcPiBvG QAwKEa2BHl2GBHtoCnuNm LqNRS0NkY3EQF1rNNkfF4 svDxemmgjdH9l Oyc+C52htQ2sLPV8LST8n jioFXVgonNzZD42CC61I4 RyPjwvdGFibGU+PGRpdiB knKfyGY9wCeLw t9aex8PqMZlzC8BzMIHfP WijChh3YXTpYPC0bMU6wA 9bOJPuVTmfs5S2dEJ3N6Q hmpOcuj6lq3zy BIApGVdfS16baWVzm2Y2I EBdnWO6CPQskUjyVlOpqD 93Oyc+VRVazXjtt7DhNkt zl3myw4loiTx2 CzRvEHRdctWqmMjmECE8b 6TuRy41L22rUQhrFXWjYZ TeBDKnXCCvlSotwc5ubZ8 wIi8+PGNvbCB3 fQK5bW0rCQOrOvR4KRwvA 460FwHrhRQyGcyzb6ckk4 rmzBw8KjZiXVLyrbRnxQi xRLT4c4BoMx17 E52sLFvcVMCwQCJaDVGcT EZfdNqubc4ypY4hTg2+PC 2pr4xgwl75uT04aUF+PHR mXEF8vDsoCWod BLCszH1tYBzgMuB2ARGaF fKuqO13kQBtKBvrDg3ajX nhiOcfBY5cIRHnhhguh54 4LdKhk2noLOBe wUCeJDawXNE8P05zb2K6W GKyVEGfMTS2dHZ0aF3dzK lnbjogbGVmdDsgdmVydGl hBKiuKGgyE387 IHRvcDsnPlBhdGllbnQgT uZiOXk9W5YnXes5FTFjeP vqZO4tnSOmAXqeIh6fdMz znRlgCX0oFSYp dhhnd283LcJpx7hlYXImt PReSNpvMPB1G71ms9S5XG XkALAjBFG8oOK4oV8clZn nbjogbGVmdDsg zsUaeSahZVerYGhdX346E HRvcDsnPkJpcnRoIERhdG L0PZ40XI15gVIfv3R5lFM 7Q6SoZVTjsupr brcqeEN7AITsJUBobP35U z3fpFlwRt7uIJBaMVG8OM VatSTkH4PevA2hOgRiAMF nCEDdN1OncVRh VGgqJ950GAegVhX3NNDug lVtV0ElDJQhkNhfWbS6h9 E8Hk5YS4J0BE49JU35cLI cr9O8gXP3A2Tj OZSyxwqokylwfPT3MNMmZ MOkaH15Sq3ciZxeEi2cQV GhGYC4EMIwhZVhA8KzlX0 yOiAjMDAwMDAw E5YqfHEkQCcqI936NIkqC jY5LMGpqrInJ0AfELKopZ gjBxK3s2F3Zj9GOAj3ZO4 3OP46qVEcu3I7 eGM8O0LdYJTtiiouruutl LK6MNZkPPNqoG75Wd2mgD cdEg1bMDXzSTE0YHMhlJO pL8OwzA1oLoDu ANLwAHJgO4RnyYEtQYpsE 724AOigRoW3RRBtbnTjE4 MtHMRnwZkyVrN5z2H4Ek5 PHBEfVC91KPP9 uBG5ZH37OE73K3VbImxaj GFibGU+PHRhYmxlIHdpZH RoPScxMDAlJyBzdHlsZT0 uUj5dURCiQONx qVzrvBZmVyWwy1taSOBkP RcvDL0lmYkrX5DupTS8GD Xno8t1Jq29C52xA3KtlMU +QTAnkXV4nRG1 iM3bNiKfSlA0NXmrD734C bPuwKAtMbfjm0zox9jkyB p5TtQ2UESwhqRqfRgiXVV 4w7LhMz37R82c IHdpZHRoPSIxNSUiIHZhb Rdtgx9gvG4lNh8+PGNvbC B1wKT0yB4mBoFfBoR9ETj qN203LuYdqFUq Jhlgq8vrb4hbcRn4GaFvB SHncpQvoFijDSF1p9GgEt 81Q4UpqXzyl8FcEoo0xm2 4iWGif0Y8pWM3 F6QeAVKznaohzBPtkWgzT U5qJKXplvjgSDLriA6zPB RrQ3v7CmFpUvF4JRfsB0T kdxM0MEBeyEQc UMeaINK4V04af3S2TABvW OYeRZL1dSQ9bZ1mrMgmwu ogbGVmdDsgdmVydGljYWw wAPnsZ104QHVj iOiyTFKdmK2hAWPagCArm BwhDH3nCTEvcruiAyzRAn RTRVksIENIRUxTRVkgUjw vdGQ+PHRkIHN0 gJgeGJrlHSEykB3dIZEmA 6v6JvFxNnG4KPxuL7AxGG XkcxyqAf92bQ7yZbEvUlZ 5UDtxX1VonhA8 DAAxaBXtKXhrVUC1D82vx 1A9AVHwYUPaRAP9aOH1qV 1hbGlnbjogbGVmdDsgdmV ydGljYWwtYWxp E415NFZwkPvrQkZdEjP6I iF0BII8Z8HfTje3UNDxrW qyOO1loMHfLDslZj9uuFf raEhoAC3rXWCd iybbCRQarP1eLZMuhPTqz UyuDG2wEOOwmnstp397As XeYGO0TPGwaUJjV9SusT7 yOiAjMDAwMDAw S3KkbGNePWjxB163CSuvP sB5CVNggkYtQ8OdGVEzsT tmDcP4q8P5Yx8zGyCKBRP yczwvdGQ+PHRk TVM5yRxhADscDKRgmH2dX MTxB7d6GzVoWdM6TIwoD2 ByLQJksknoIx44rU3mJcW sIwG1ORpgM2Hv qxB2YIObpPMnFWowJGB0F 47zz1Z4MBSvCMXvFMF2sU J5jR1liOvjquuziZVzcYz gdmVydGljYWwt ONbsS403CUSyhHenMsVsg WFsZTwvdGQ+DOYlBEQ3vF oqYCnfZURyrC5zYAFcA1w 7IwJbVtD9UPzt D4JzHDGigvokKe92iC1cJ gNuAuE2EPiuW1AznkW3CW YivSXvGGsvPAK8L04mc8B 6OHEtBKPlHKK4 zOR3qL7hbCikkmjdtUNqw DsgdmVydGljYWwtYWxpZ2 18ZRCrsOyvGnBgWLLbMN0 jeTwvdGQ+PC90 pf05U8DcVjrdBwp9EJQpL JJ6cAE0bH9qXGBjZOdtl1 C5mST4H1BbwjNuaf5sw5q eTRTmUVyfZ97y fETtw7O6IQBezUY2YQYov RkcEjPacW37Anm+PGNvbG iba9OyScjbh7sus4bpdJf 9IjMwJSIgdmFs eKlmUPQ4i5NjEq42X93mP HdpZHRoPSIzMCUiIHZhbG aauq8wqW5xXt5+PGNvbCB 4hEV1gF6zSfTx HlW5WBmfW416NfGunAAqC nodn9cli8noeHw6MeLjWA DxreKkfZsmKXX6e3KaKs6 6L5OakDclq7Si Wje6fs57jGLgd0X9wZL5F 3BhZGRpbmctbGVmdDogMC 7pRVDpplsyUHAuxZ9qOCH oW9v9OfVkBcK5 UOtjP5NbexF5MBXbdFAyV YLmtNVNiG4vvxtmm7zkqk nkMhApJQRxBPn6AGs3KNV saWduOiBsZWZ0 YnT5GIL1nUOoyT1azRaeu gnyqO5zFbv+ORp5g9vguK RnWJ6rvAG7CH25LH67dXE jr7V2qPI9F9Gq NWHcpiuaihvzqQI9DFKbY FZkuY14Mu3gxQfnXa2sMA JkJSA8SLZpfKZzQ5CatQ6 yOiAjMDAwMDAw G9VkfXVzXJdjF657LIblK vQ7NOWbsoTgH4EcMQLztY nnFsK6f3H8Gd4LRA37ZK5 3DQ00kWElw0N4 hAW0R7YoLDAdlxkootknz LV8ZDRiAJBpdY32Zs7ciI woZh7yPORjWFE4JYNkmDY kM0CwmE5gMbJw GRGtWFNhA9OumSFaGUtmS 655IQgcIbQ2CILhjsJlH1 PlBHNbjBvcElR5u9N4Vu2 DQz12AC70RG89 vSAey9L1lKX7E6GpFAMlw loduyybqVQ1RDHqSKBhbU 04Th0kgFqxEp6pIEWwHAP 9DTLsaMBdC2Cd iS2fKdWiQCEwPLMtI4Huc XNaAUihU453ZKikVkC0YN UufbJiC1FbIBFycKzqRdY 0j0A5Jq8AQTve bma2C5KrRbcwiQY+PC90Y JAaGM77kUEgdQBip4npgP f8AyDaINAbMJA6iQpsGRv zn5AxFRWmX04y bGFw (more content not included)... Normal [facility] Path. Reviewon 12-11-2021 Path Review Microcytic and hypochromic anemia. Clinical correlation and iron studies are recommended to determine etiology as clinically indicated. Invalid Interpretation Code [facility] Comment on above: Order Comment: Order Added by Discern Expert. Performed By: #### 2 [id number], [id number], [id number], [id number], [id number], [id number], [id number] #### [facility] [address] [place] [address] Auto Diffon 12-10-2021 Basophils/100 WBC (Bld) 0.2 % Normal 0.0-2.0 [facility] Comment on above: Order Comment: Order Added by Discern Expert. Performed By: #### 2 [id number], [id number], [id number], [id number], [id number], [id number], [id number] #### [facility] [address] [place] [address] 17965 Basophils/Leukocytes Auto (Bld) [Pure # fraction] 0.0 E9/L Normal 0.0-0.2 [facility] Comment on above: Order Comment: Order Added by Discern Expert. Performed By: #### 2 [id number], [id number], [id number], [id number], [id number], [id number], [id number] #### [facility] [address] [place] [address] 07134 Eosinophils/100 WBC (Bld) 1.3 % Normal 0.0-8.0 [facility] Comment on above: Order Comment: Order Added by Discern Expert. Performed By: #### 2 [id number], [id number], [id number], [id number], [id number], [id number], [id number] #### [facility] [address] [place] [address] 30194 Eosinophils/Leukocyte s Auto (Bld) [Pure # fraction] 0.1 E9/L Normal 0.0-0.5 [facility] Comment on above: Order Comment: Order Added by Discern Expert. Performed By: #### 2 [id number], [id number], 84094440, 5294907, 68721051, [id number], [id number] #### [facility] [address] [place] [address] 15642 Lymphocytes/100 WBC (Bld) 30.3 % Normal 14.0-50.0 [facility] Comment on above: Order Comment: Order Added by Discern Expert. Performed By: #### 2 [id number], [id number], [id number], 0798669, 01430445, 71576857, [id number] #### [facility] [address] [place] [address] 13204 Lymphocytes/Leukocyte s Auto (Bld) [Pure # fraction] 2.1 E9/L Normal 1.0-4.0 [facility] Comment on above: Order Comment: Order Added by Discern Expert. Performed By: #### 2 [id number], [id number], [id number], 9876816, [id number], [id number], [id number] #### [facility] [address] [place] [address] Monocytes/100 WBC (Bld) 6.2 % Normal 4.0-14.0 [facility] Comment on above: Order Comment: Order Added by Discern Expert. Performed By: #### 2 723219, 23437622, 52262511, 7246442, 67165683, 83355233, 2092780 #### [facility] [address] [place] [address] Monocytes/Leukocytes Auto (Bld) [Pure # fraction] 0.4 E9/L Normal 0.2-1.0 [facility] Comment on above: Order Comment: Order Added by Discern Expert. Performed By: #### 2 054973, 82138467, 31585517, 2921086, 60456312, 61329305, 4696004 #### [facility] [address] [place] [address] Neutrophils/100 WBC (Bld) 62.0 % Normal 36.0-75.0 [facility] Comment on above: Order Comment: Order Added by Discern Expert. Performed By: #### 2 676232, 83152620, 74721798, 4309903, 49129954, 57797370, 2424165 #### [facility] [address] [place] [address] Neutrophils/Leukocyte s Auto (Bld) [Pure # fraction] 4.3 E9/L Normal 2.0-7.5 [facility] Comment on above: Order Comment: Order Added by Discern Expert. Performed By: #### 2 011129, 60940616, 74307211, 6476818, 67671552, 39508795, 4517165 #### [facility] [address] [place] [address] BMPon 12-10-2021 Creatinine [Mass/Vol] 1.0 mg/dL Normal 0.5-1.3 [facility] Comment on above: Performed By: #### 2 658409, 03548612, 10406002, 6953514, 89131551, 63721871, 8096377 #### [facility] [address] [place] [address] Urea nitrogen [Mass/Vol] 17 mg/dL Normal 5-21 [facility] Comment on above: Performed By: #### 2 211870, 64252159, 18445016, 4728659, 88452475, 08268502, 2217158 #### [facility] [address] [place] [address] Urea nitrogen/Creatinine [Mass ratio] 17 No Units Normal 10-20 [facility] Comment on above: Performed By: #### 2 469878, 15092413, 14644463, 0950454, 78558281, 43032645, 6023765 #### [facility] [address] [place] [address] Anion gap [Moles/Vol] 13 mmol/L Normal 6-16 [facility] Comment on above: Performed By: #### 2 820706, 61669852, 52396195, 3781079, 17179006, 39837872, 8382108 #### [facility] [address] [place] [address] Calcium [Mass/Vol] 9.2 mg/dL Normal 8.9-11.1 [facility] Comment on above: Performed By: #### 2 294997, 18793059, 71732371, 0934678, 68305702, 96857584, 7892046 #### [facility] [address] [place] [address] Chloride [Moles/Vol] 106 mmol/L Normal 101-111 [facility] Comment on above: Performed By: #### 2 669078, 10111087, 75781314, 8793468, 02727110, 24280339, 0413023 #### [facility] [address] [place] [address] CO2 [Moles/Vol] 22 mmol/L Normal 21-31 [facility] Comment on above: Performed By: #### 2 305941, 84980927, 25344333, 4129982, 10157773, 15456946, 9127051 #### [facility] [address] [place] [address] Glucose [Mass/Vol] 96 mg/dL Normal 55-199 [facility] Comment on above: Result Comment: If t his glucose result represents a fasting glucose, interpretation should refer to the following reference range: 55-99 mg/dL Performed By: #### 2 946752, 50538134, 28651125, 2867801, 22450279, 81583124, 1170361 #### [facility] [address] [place] [address] Potassium [Moles/Vol] 4.2 mmol/L Normal 3.5-5.3 [facility] Comment on above: Performed By: #### 2 549069, 86413678, 29637190, 6332571, 09475160, 70493121, 7522571 #### [facility] [address] [place] [address] Sodium [Moles/Vol] 137 mmol/L Normal 135-145 [facility] Comment on above: Performed By: #### 2 372227, 93727174, 68116611, 1008153, 48417600, 06087170, 3603062 #### [facility] [address] [place] [address] CBC w/ Auto Diffon 2 Erythrocyte distribution width (RBC) [Ratio] 15.4 % High 10.9-14.2 [facility] Comment on above: Performed By: #### 2 321478, 97139458, 83901865, 1564617, 97841464, 47430834, 2766201 #### [facility] [address] [place] [address] Hematocrit (Bld) [Volume fraction] 34.9 % Normal 34.0-46.0 [facility] Comment on above: Performed By: #### 2 676833, 52561830, 30247118, 2060466, 63721886, 71099919, 6832265 #### [facility] [address] [place] [address] Hemoglobin (Bld) [Mass/Vol] 11.0 g/dL Low 12.0-16.0 [facility] Comment on above: Performed By: #### 2 201215, 42290432, 98654104, 5173508, 73437086, 43146017, 3737856 #### [facility] [address] [place] [address] MCH (RBC) [Entitic mass] 17.7 pg Low 27.0-34.0 [facility] Comment on above: Performed By: #### 2 398450, 60852093, 67835281, 2459783, 76000977, 13945592, 9602844 #### [facility] [address] [place] [address] MCHC (RBC) [Mass/Vol] 31.6 g/dL Normal 31.4-36.0 [facility] Comment on above: Performed By: #### 2 520942, 87256270, 63000646, 6737520, 62520963, 68916641, 2773516 #### [facility] [address] [place] [address] MCV (RBC) [Entitic vol] 56.1 fL Low 80.0-100.0 [facility] Comment on above: Performed By: #### 2 772343, 74082972, 85202232, 5887305, 12377784, 95515175, 0029881 #### [facility] [address] [place] [address] Platelet mean volume (Bld) [Entitic vol] 8.9 fL Normal 6.4-10.8 [facility] Comment on above: Performed By: #### 2 522109, 01150120, 67547291, 2532103, 36872853, 21967787, 3179964 #### [facility] [address] [place] [address] Platelets (Bld) [#/Vol] 281.0 E9/L Normal 150.0-500.0 [facility] Comment on above: Performed By: #### 2 314056, 35877502, 24643009, 8122589, 24516582, 42069817, 4373663 #### [facility] [address] [place] [address] RBC (Bld) [#/Vol] 6.2 E12/L High 4.3-5.9 [facility] Comment on above: Performed By: #### 2 775919, 32554153, 86262511, 7098868, 52328444, 56464798, 1879545 #### [facility] [address] [place] [address] WBC corrected for nucl RBC Auto (Bld) [#/Vol] 6.9 E9/L Normal 4.0-11.0 [facility] Comment on above: Performed By: #### 2 067728, 80835180, 47630703, 0414432, 43514340, 70359565, 8380845 #### [facility] [address] [place] [address] CHEMISTRYOrdered By: SYSTEM SYSTEM on 12-10-2021 Anion [...] rate/Area] mL/min/1.73 m2 Normal >=59mL/min/1 .73 m2 [facility] Chem S GFR/1.73 sq M.predicted among non-blacks MDRD (S/P/Bld) [Vol rate/Area] mL/min/1.73 m2 Normal >=59mL/min/1 .73 m2 [facility] Chem S Glucose [Mass/Vol] 96 mg/dL Normal 55 - 199 mg/dL [facility] Remisol Potassium [Moles/Vol] 4.2 mmol/L Normal 3.5 - 5.3 mmol/L [facility] Remisol Sodium [Moles/Vol] 137 mmol/L Normal 135 - 145 mmol/L [facility] Remisol Troponin I.cardiac [Mass/Vol] pg/mL Low 10.10 - 27.10 pg/mL [facility] Remisol Urea nitrogen [Mass/Vol] 17 mg/dL Normal 5 - 21 mg/dL [facility] Remisol Urea nitrogen/Creatinine [Mass ratio] 17 mg/mg Normal 10 - 20 [facility] Remisol Consent for Treatmenton 11-24 Consent for Treatment [id number]:127 Normal [facility] Discharge Instructionson Discharge Instructions [id number]:127 Normal [facility] ED Clinical Summaryon 2021 ED Clinical Summary [address] [address] ED Clinical Summary Person Information Name: TORIE JOHNSTON [facility]line [facility] Age: 31 Years : 1990 Sex: Female Language: Ukrainian PCP: YAMILE GARCIA CNP Marital Status: Visit [...] 03:49:35 12/10/2021 03:49:35 12/10/2021 03:49:35 ADDRESS: [address] [facility] [phone] [facility] DOC NOTES: MEDICAL INFORMATION: Prescriptions [...] With: Address: When: YAMILE GARCIA [address] [facility], [place], [place] [id number] [phone] Business (1) In 3 days 12/13/2021 Comments: Return to the emergency room if your vertigo recurs or any new symptoms DIAGNOSIS: 1:Vertigo; 2:Leg pain Normal [facility] ED Note-Nursingon 12-10-2021 ED Note-Nursing pt given d/c instructions and educated on importance of follow up. pt educated on new medications. pt verbalized understanding of instructions and readiness for d/c. pt walked self ambulatory to waiting room in stable condition Normal [facility] ED Note-Physicianon 12-11-19 ED Note-Physician Basic [...] meclizine 12.5 mg Tab, 25 mg, Oral [id number] [F], 1000 mL, IV Phenergan 25 mg/mL Injection, 12.5 mg, IV Push Disposition Plan Patient Discharge Condition Stable, improved Discharge Disposition Discharged home Discharge Prescription List Prescriptions meclizine 25 mg Tab, 25 mg= 1 tab(s), Oral, TID Zofran ODT 4 mg Tab-Dis, 4 mg= 1 tab(s), Oral, q6hr, PRN Follow-up With When Contact Information YAMILE GARCIA In 3 days 12/13/2021 EDT [address] [place] [address] [phone] Business (1) Additional Instructions: Return to the [...] 00:31:00) Hct: (more content not included)... Normal [facility] Comment on above: Result Comment: Elec [...] you feel dizzy. General instructions ? Take gkul-toh-gupykfw and prescription medicines only as told by [...] 02/20/2006 Document Revised: 04/06/2019 Document Reviewed: 04/06/2019 Get In Patient Education ? 2019 [employer]. Normal [facility] ED Patient Summaryon 022 ED Patient Summary [place] [address] Patient Discharge Instructions Person Information Name: TORIE JOHNSTON Age: 31 Years Arrival Date: 12/09/2021 22:22:45 Discharge Diagnosis: 1:Vertigo; 2:Leg pain Primary Care Physician: YAMILE GARCIA CNP Provider Information Primary Provider: Miguel Kamara M.D. [facility] Outreach Coordinator:None The exam and treatment you received in the Emergency Department were for an urgent problem and are not intended as complete care. It is important that you follow up with a doctor, nurse practitioner, or physician?s health information assistant for ongoing care. If your symptoms [...] When: YAMILE GARCIA [address] [facility], [place], [place] [phone] Business (1) In 3 days 12/13/2021 Comments: [...] opioids can be used to help relieve tozlhcew-yr-uusvyz pain and are often prescribed following a [...] be struggling with addiction, tell your health family member caretaker and ask f (more content not included)... Normal [facility] HEMATOLOGYOrdered By: Serg Goodson on 12-10-2021 [...] Ql (Bld) Present (12/10/21 12:31 AM) Normal [facility] HemeManSS Polychromasia LM Ql (Bld) Present (12/10/21 12:31 AM) Normal [facility] HemeManSS RBC (Bld) [#/Vol] 6.2 E12/L High 4.3 - 5.9 E12/L [facility] HemeAutoSS Teardrop Cell Present (12/10/21 12:31 AM) Normal [facility] HemeManSS WBC corrected for nucl RBC Auto [...] 4.3 E9/L Normal 2.0 - 7.5 E9/L [facility] HemeAutoSS Morphon 12-10-2021 Anisocytosis Ql (Bld) Present Normal [facility] Comment on above: Order Comment: Order Added by Discern Expert. Performed By: #### 2 327177, 28984164, 68166110, 9036860, 70321670, 09846820, 9341229 #### [facility] [address] [place] [address] Elliptocytes LM Ql (Bld) Present Normal [facility] Comment on above: Order Comment: Order Added by Discern Expert. Performed By: #### 2 709338, 55961435, 31147226, 6601525, 84292803, 99761405, 1475067 #### [facility] [address] [place] [address] Hypochromia Auto Ql (Bld) Present Normal [facility] Comment on above: Order Comment: Order Added by Discern Expert. Performed By: #### 2 558766, 76182174, 67188568, 3451367, 03255590, 62831239, 8290808 #### [facility] [address] [place] [address] Morphology Rey (Bld) [Interp] See Morphology Normal [facility] Comment on above: Order Comment: Order Added by Discern Expert. Performed By: #### 2 433127, 86092588, 21100394, 3883435, 75304099, 09235343, 4582607 #### [facility] [address] [place] [address] Poikilocytosis Auto Ql (Bld) Present Normal [facility] Comment on above: Order Comment: Order Added by Discern Expert. Performed By: #### 2 721021, 88384710, 32276184, 9104438, 99650373, 98112713, 1062322 #### [facility] [address] [place] [address] Polychromasia LM Ql (Bld) Present Normal [facility] Comment on above: Order Comment: Order Added by Discern Expert. Performed By: #### 2 860148, 39082385, 50420425, 7271480, 96567618, 45162180, 1125118 #### [facility] [address] [place] [address] Teardrop Cell Present Normal [facility] Comment on above: Order Comment: Order Added by Discern Expert. Performed By: #### 2 455675, 51053885, 80684298, 0996328, 84231004, 71870498, 3782513 #### [facility] [address] [place] [address] SEROLOGYOrdered By: Serg hope on 12-10-2021 HCG.beta subunit (U) [Moles/Vol] Negative Normal [facility] Man Sero Troponin 0 Hr.on 12-10-2021 Troponin I.cardiac [Mass/Vol] ng/mL Low 10.10-27.10 [facility] Comment on above: Result Comment: The 95% CI (Confidence Interval) PPV (Positive Predictive Value) for myocardial infarction in females is 38 pg/mL, in males 51 pg/mL. The results should be used in conjunction with clinical conditions of myocardial infarction. (Access High Sensitivity Troponin I Instructions For Use, Mili Jeniffer, December 2017) Performed By: #### 2 548278, 32919529, 29498192, 0144169, 65174969, 53566248, 0239355 #### [facility] [address] [place] [address] U BetaHcg Qualon 12-10-2021 HCG.beta subunit (U) [Moles/Vol] Negative Normal [facility] Comment on above: Performed By: #### 2 2003291, 65647466 ####[facility] [address] [place] [address] UA With Cult Reflexon 2021 Bilirubin Ql (U) Negative Normal Negative [facility] Comment on above: Performed By: #### 2 5355957, 22706095 #### [facility] [address] [place] [address] Clarity (U) CLEAR Normal Clear [facility] Comment on above: Performed By: #### 2 2825440, 80488105 #### [facility] [address] [place] [address] Color (U) YELLOW Normal Yellow [facility] Comment on above: Performed By: #### 2 7114821, 85657123 #### [facility] [address] [place] [address] Epithelial cells.squamous LM.HPF (Urine sed) [#/Area] 0-2 Normal 0-2 [facility] Comment on above: Performed By: #### 2 5954817, 42105672 #### [facility] [address] [place] [address] Glucose Test strip (U) [Mass/Vol] Negative Normal Negative [facility] Comment on above: Performed By: #### 2 4872667, 78106151 #### [facility] [address] [place] [address] Hemoglobin Ql (U) Negative Normal Negative [facility] Comment on above: Performed By: #### 2 2405609, 83296594 #### [facility] [address] [place] [address] Ketones (U) [Mass/Vol] Negative Normal Negative [facility] Comment on above: Performed By: #### 2 1567790, 61677329 #### [facility] [address] [place] [address] Kenly.plasma/Lithiu m.RBC (Bld) [Mass ratio] 0-3 Normal 0-3 [facility] Comment on above: Performed By: #### 2 3461055, 06491562 #### [facility] [address] [place] [address] Nitrite Ql (U) Negative Normal Negative [facility] Comment on above: Performed By: #### 2 5574621, 29157868 #### [facility] [address] [place] [address] pH (U) 6.0 [pH] Invalid Interpretation Code 5.0-9.0 [facility] Comment on above: Performed By: #### 2 4503115, 59439292 #### [facility] [address] [place] [address] Protein (U) [Mass/Vol] Negative Normal Negative [facility] Comment on above: Performed By: #### 2 5445293, 24175338 #### [facility] [address] [place] [address] Specific gravity (U) [Rel density] 1.025 Invalid Interpretation Code 1.005-1.030 [facility] Comment on above: Performed By: #### 2 2409458, 22660767 #### [facility] [address] [place] [address] Type of Urine collection method Clean Catch Normal [facility] Comment on above: Performed By: #### 2 4290820, 33493856 #### [facility] [address] [place] [address] Urobilinogen Qn (U) 0.2 {Isamar'U}/dL Normal 0.0-1.0 [facility] Comment on above: Performed By: #### 2 9121960, 80502330 #### [facility] [address] [place] [address] WBC Auto Ql (U) Negative Normal Negative [facility] Comment on above: Performed By: #### 2 1227676, 36495989 #### [facility] [address] [place] [address] WBC LM.HPF (Urine sed) [#/Area] 0-5 Normal 0-5 [facility] Comment on above: Performed By: #### 2 6496479, 04797617 #### [facility] [address] [place] [address] URINALYSISOrdered By: Serg Goodson on 12-10-2021 Bilirubin [...] AM) Normal Negative [facility] UA Auto SS Kenly.plasma/Lithiu m.RBC (Bld) [Mass ratio] 0-3 /HPF Normal [...] [facility] UA Auto SS Urobilinogen Qn (U) 0.6691420 {Isamar'U}/dL Normal 0.0 - 1.0 EU/dL [facility] [...] M.D. Transcribed by: FABI Technologist: MARKO Ornelas [facility] eGFRon 12-10-2021 GFR/1.73 sq M.predicted among blacks MDRD (S/P/Bld) [Vol rate/Area] mL/min/{1.73_m2} Normal >=59 [facility] Comment on above: Order Comment: Order added by Discern Expert. Result Comment: eGFR is race adjusted. AA=. Performed By: #### 2 149214, 49796623, 65299731, 0591047, 21516987, 64307631, 3480929 #### [facility] [address] [place] [address] GFR/1.73 sq M.predicted among non-blacks MDRD (S/P/Bld) [Vol rate/Area] mL/min/{1.73_m2} Normal >=59 [facility] Comment on above: Order Comment: Order added by Discern Expert. Result Comment: Software Tools Developer sonu kidney disease could be indicated at eGFR's of less than 60 mL/min/1.73m2. Kidney failure is indicated at less than 15 mL/min/1.73m2. Performed By: #### 2 430783, 29374365, 90599522, 3362921, 41726482, 27154471, 6933577 #### [facility] [address] [place] [address] VC CONSULT FOLLOWUPon 2021 VC CONSULT FOLLOWUP Patient: TORIE JOHNSTON Exam Date: 11/16/2021 : 1990 Gender:F Ordering : DR SADI JEWELL M.D. Admission #: [id number] Family : Order #: [id number] CLICK HERE TO VIEW EXAM RADIOLOGY REPORT [...] Wood M.D. on 11/16/2021 at 12:01 Normal [facility] VC EXT VENOUS LT LIMITEDon 0 11-16-2021 VC EXT VENOUS LT LIMITED Patient: TORIE JOHNSTON Exam Date: 11/16/2021 : 1990 Gender:F Ordering : DR SADI JEWELL M.D. Admission #: [id number] Family : Order #: [id number] CLICK HERE TO VIEW EXAM RADIOLOGY REPORT [...] Wood M.D. on 11/16/2021 at 11:58 Normal [facility] VC ENDOVENOUS ABL 1ST V LTon 11-08-2021 VC ENDOVENOUS ABL 1ST V LT Patient: TORIE JOHNSTON Exam Date: 11/08/2021 : 1990 Gender:F Ordering : DR SADI JEWELL M.D. Admission #: [id number] Family : Order #: [id number] CLICK HERE TO VIEW EXAM RADIOLOGY REPORT PROCEDURE: VEIN CENTER ENDOVENOUS ABLATION FIRST VEIN LEFT COMPARISON: None. INDICATIONS: Pain co-occurrent and due to varicose veins of bilateral legs I83.813 OPERATIVE REPORT: The risks and benefits of the procedure had been previously discussed, and were rediscussed at length. Informed written consent was obtained by ct and Ketan Haley assisted. Time out procedure [...] Jose Wood M.D. on 11/08/2021 at 08:59 [facility] VC CONSULT FOLLOWUPon 2021 VC CONSULT FOLLOWUP Patient: TORIE JOHNSTON Exam Date: 10/19/2021 : 1990 Gender:F Ordering : DR SADI JEWELL M.D. Admission #: [id number] Family : Order #: [id number] CLICK HERE TO VIEW EXAM RADIOLOGY REPORT [...] Jose Wood M.D. on 10/19/2021 at 09:37 [facility] VC EXT VENOUS RT LIMITEDon 0 10-19-2021 VC EXT VENOUS RT LIMITED Patient: TORIE JOHNSTON Exam Date: 10/19/2021 : 1990 Gender:F Ordering : DR SADI JEWELL M.D. Admission #: [id number] Family : Order #: [id number] CLICK HERE TO VIEW EXAM RADIOLOGY REPORT [...] Wood M.D. on 10/19/2021 at 09:34 Normal [facility] VC ENDOVENOUS ABL 1ST V RTon 10-16-2021 VC ENDOVENOUS ABL 1ST V RT Patient: TORIE JOHNSTON Exam Date: 10/16/2021 : 1990 Gender:F Ordering : DR SADI JEWELL M.D. Admission #: [id number] Family : Order #: [id number] CLICK HERE TO VIEW EXAM RADIOLOGY REPORT [...] Sadi Jewell MD on 10/16/2021 at 09:30 [facility] THYROIDon 10-10-2021 US THYROID EXAMINATION: US THYROID [...] authenticated by: JOSE Quezada: 2021-10-10 08:52 Normal [facility] Vital Signs Date Time Vital Sign Value Performing Clinician Isabelle nielsen 12-10-2021 14:00-0400 Body temperature 98.6 [degF] [facility] 12-10-2021 14:00-0400 Diastolic blood pressure 94 mm[Hg] [facility] 12-10-2021 14:00-0400 Heart rate 86 /min [facility] 12-10-2021 14:00-0400 Mean blood pressure 106 mm[Hg] [facility] 12-10-2021 14:00-0400 Respiratory rate 18 /min [facility] 12-10-2021 14:00-0400 SaO2% (BldA) [Mass fraction] 100 % [facility] 12-10-2021 14:00-0400 Systolic blood pressure 131 mm[Hg] [facility] 12-10-2021 03:38-0400 Body temperature 98.24 [degF] [facility] 12-10-2021 03:38-0400 Diastolic blood pressure 64 mm[Hg] [facility] 12-10-2021 03:38-0400 Heart rate 92 /min [facility] 12-10-2021 03:38-0400 Mean blood pressure 80 mm[Hg] [facility] 12-10-2021 03:38-0400 Respiratory rate 17 /min [facility] 12-10-2021 03:38-0400 SaO2% (BldA) [Mass fraction] 99 % [facility] 12-10-2021 03:38-0400 Systolic blood pressure 111 mm[Hg] [facility] 12-10-2021 03:00-0400 Diastolic blood pressure 85 mm[Hg] [facility] 12-10-2021 03:00-0400 Mean blood pressure 102 mm[Hg] [facility] 12-10-2021 03:00-0400 Systolic blood pressure 137 mm[Hg] [facility] 12-10-2021 00:00-0400 Heart rate 80 /min [facility] 12-09-2021 23:00-0400 gluc 90 mg/dL [facility] 12-09-2021 23:00-0400 gluc [facility] 12-09-2021 23:00-0400 Heart rate 75 /min [facility] 12-09-2021 22:46-0400 Heart rate 86 /min [facility] Encounters Encounter Date Encounter Type Care Provider Facility Start: 2023 End: 06-21-2023 ambulatory EVGENY ZHOU Facility:[facility] Start: 09-20-2022 End: 09-21-2022 ambulatory [...] 12-09-2021 End: 12-10-2021 Emergency department patient visit [facility] Start: 11-23-2021 End: 11-24-2021 ambulatory TELEGRAPH OFFICE MANAGER AYMILE GARCIA Facility:[facility] Start: 11-21-[address] SADI [...] End: 08-22-2020 Patient encounter procedure External Provider [facility] Start: 08-22-2020 Results Only External Provider Exter nal-Non[facility]F Procedures Date Procedure Procedure Detail Performing Clinician Start: 08-22-2020 EXTERNAL IMAGING Health Information Assistant al Provider Start: 08-22-2020 EXTERNAL LAB External P rovider Plan of Treatment Date Care Activity Detail Author Start: 01-26-2020 Influenza vaccination INFLUENZA (#1) [facility] Start: 2019 HPV TESTING HPV TESTING [facility] Start: 2010 PAP TESTING PAP TESTING [facility] Start: 2008 Urine microalbumin profile DTAP,TDAP ,TD (1 - Tdap) [facility] Start: 2007 HEPATITIS C SCREENING HEPATITIS C SC REENING [facility] Start: 2007 HIV SCREENING HIV SCREENING [facility] Start: 2001 Adult depression scr eening assessment DEPRESSION SCREENING [facility] Payers Date Payer Category Payer Private Health Insurance AETNA A ETNA OPEN ACCESS AET[employer] SELECT [id number] 2020-Present EPO [id number] 1989 Unknown [id number] 2.16.840.1.096305.3.579.2.5 93 1989 Unknown [id number] 2.16.840.1.435874.3.579.2.5 1989 Unknown [id number] 2.16.840.1.613496.3.579.2.5 1989 Unknown [id number] 2.16.840.1.717089.3.579.2.5 1989 Unknown [id number] 2.16.840.1.176868.3.579.2.5 93 1989 Unknown [id number] 2.16.840.1.665032.3.579.2.5 1989 Unknown [id number] 2.16.840.1.055749.3.579.2.5 1989 Unknown [id number] 2.16.840.1.928234.3.579.2.5 1989 Unknown [id number] 2.16.840.1.464596.3.579.2.5 1989 Unknown [id number] 2.16.840.1.053562.3.579.2.5 1989 Unknown [id number] 2.16.840.1.116602.3.579.2.5 1989 Unknown [id number] 2.16.840.1.934515.3.579.2.5 1989 Unknown [id number] 2.16.840.1.825056.3.579.2.5 1989 Unknown [id number] 2.16.840.1.749480.3.579.2.5 1989 Unknown [id number] 2.16.840.1.688884.3.579.2.5 93 1959 Medicaid [id number] 1959 Private Health Insurance [id number] [id number] 1959 Self-pay [id number] Self-pay 1959 Unknown [id number] 1959 Unknown [id number] Social History Date Type Detail Facility Start: 08-22-2020 Tobacco smoking stat [facility] Unknown if ever smoked [facility] Start: 1989 Sex Assigned At Not on file [facility] Exposure to SARS-CoV -2 (event) Not sure [facility] Sex Assigned At [employer] Other Tobacco smoking status No Smokin g Status Entered [facility] Functional Status Date Assessment Result Facility 12-09-2021 Functional Status N/A [facility] Progress note 2023 Note Date & Type Note Facility 2023 Note HNO ID: [id number] Author: FRANCIS MA MD Service: ? Author Type: Physician Type: Progress Notes Filed: 2023 14:44 Note Text: [facility], [place] Department of Hematologic Oncology and Blood Disorders PATIENT NAME: [facility] NO: [id number] ATTENDING PHYSICIAN: Francis Ma MD. DATE OF [...] Abs Lymph 1.00 - 4.00 k/uL 1.42 [place]% % 5.3 Abs [place] <0.87 k/uL 0.21 [place]% % 1.5 Abs [...] in 2018 during ). 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 She was placed on folic acid. [...] We also reviewed (more content not included)... [facility] Evaluation + Plan note 12-10-2021 Note Date [...] Diagnostic Tests Pending * Path. Review 12/10/21 [facility] Hospital Discharge instructions 12-10-2021 Note Date & [...] if you feel dizzy. General instructions Take ssfz-uyd-jexepse and prescription medicines only as told by [...] 02/20/2006 Document Revised: 04/06/2019 Document Reviewed: 04/06/2019 Get In Patient Education 2020 [employer]. Follow Up Care 12/09/2021 22:26:43 With:YAMILE GARCIA Address: [address] [place] [phone] Business (1) When:12/13/2021 Comments:Return to the emergency room if your vertigo recurs or any new symptoms [facility] Clinical Note 12-10-2021 Note Date & Type [...] any SOB. pt has hx of anxiety [facility] Evaluation note Note Date & Type Note Facility Evaluation note No Information [facility] Other History general Narrative - Reported Note Date & Type Note Facility History general Narrative - Reported Type Surgical History D & C Surgical History tubal ligation [facility] Other Hospital course Narrative Note Date & Type Note Facility Hospital course Narrative No data available for this section [facility] Progress note Note Date & Type Note Facility Progress note No data available for this section [facility] Summary Purpose Family History No Family History [...] or prosecute any alcohol or drug abuse [facility] the event this information is protected by the Federal Confidentiality of Alcohol and Drug Abuse Patient Records regulations: The Federal rules restrict any use of the information to criminally investigate or prosecute any alcohol or drug abuse patient.[facility] REASON FOR VISIT (unrecogniz ed section and content) N/S covid test Care Team (unrecognized sect ion and content) Personnel Name: YAMILE GARCIA CNP Address: [address] [place], [place] [id number] [place] INFORMATION SOURCE (unrecogn ized section and content) DATE CREATED AUTHOR 12/14/2021 [facility] DATE CREATED AUTHOR AUTHOR'S ORGANIZ ATION 10/06/2022 [facility] DATE CREATED AUTHOR AUTHOR'S ORGANIZ ATION 06/22/2023 [facility] FOR RECORDS PERTAINING TO PATIENTS WHO ARE [...] BE BASED ON THE PRIMARY CLINICAL RECORDS. [facility]. provides no warranty or guarantee of the accuracy or completeness of information in this document.
[2024-06-13 09:53] LABS: Estimated Average Glucose 108 mg/dL; Glycohemoglobin A1C 5.4 % (4.5-6.2)
[2024-06-13 10:07] LABS: Alanine Aminotransferase 26 U/L (14-59); Albumin Globulin Ratio 0.9; Albumin Level 3.5 g/dL (3.4-5.0); Alkaline Phosphatase 64 U/L (46-116); Anion Gap 13.6; Aspartate Amino Transferase 15 U/L (15-37); BUN Creatinine Ratio 17.2; Bilirubin Total 0.5 mg/dL (0.2-1.0); Calcium 8.6 mg/dL (8.5-10.1); Carbon Dioxide 25.8 mmol/L (21.0-32.0); Chloride 107 mmol/L (98-107); Chol HDL Ratio 5.5; Estimated GFR (African America >60 (>=60 mL/min/1.73m^2); Estimated GFR (Non-African Ame >60 (>=60 mL/min/1.73m^2); Globulin 3.7 g/dL; Glucose 90 mg/dL (74-106); HDL Cholesterol 30 mg/dL (40-60); Potassium 4.4 mmol/L (3.5-5.1); Sodium 142 mmol/L (136-145); TSH W/ REFLEX FT4 4.011 uIU/mL (0.358-3.740); Total Protein 7.2 g/dL (6.4-8.2); Triglycerides 138 mg/dL (<=150); VLDL CHOLESTEROL 27.6 mg/dL
[2024-06-13 10:55] LABS: Free T4 1.08 ng/dL (0.76-1.46)
[2024-06-13 13:40] LABS: Cholesterol 179 mg/dL (<=200)
== END 2024-06-13 07:37 | disposition home or self-care (01) ==
LOC: LAB 07:38
PROVIDERS: Family Provider Nurse Practitioner Primary Care; PCP Nurse Practitioner; Visit Provider Internal Medicine
DX: E03.9 Hypothyroidism, unspecified (principal); Z13.6 Encounter for screening for cardiovascular disorders; Z13.1 Encounter for screening for diabetes mellitus
CPT/HCPCS: 36415; 80053; 80061; 83036; 84439; 84443

== ENCOUNTER 2024-08-13 15:26 | Outpatient (OUT) | payer OTHER, SELFPAY ==
--- OUTSIDE RECORDS SUMMARY | 2024-08-13 15:41 | XMS_ITS | CCD ---
Author Organization [facility] Inform ion Partnership [facility] Care Team Providers Care Historical Manuscripts Curator Name Role Phone Unavailable Primary Care Provider Juan Carlos Panchal Unavailable CEDRICYAMILE BRANDON Primary Care Physician [phone] FANTA, DR SADI Oliveira Consulting Unavailable AICHHOLZ, RIVETING MACHINE OPERATOR YAMILE Primary Care Unavailable WEST, DR SADI Oliveira Attending Unavailable WEST, DR SADI Oliveira Admitting Unavailable WEST, DR SADI Oliveira Consulting Unavailable AICHHOLZ, RIVETING MACHINE OPERATOR YAMILE Primary Care Unavailable WEST, DR SADI Oliveira Attending Unavailable WEST, DR SADI Oliveira Admitting Unavailable ZIEBER, DR JOSE Crowley Consulting Unavailable WEST, DR SADI Oliveira Consulting Unavailable AICHHOLZ, RIVETING MACHINE OPERATOR YAMILE Primary Care Unavailable WEST, DR SADI Oliveira Attending Unavailable WEST, DR SADI Oliveira Admitting Unavailable ZIEBER, DR JOSE Crowley Consulting Unavailable WEST, DR SADI Oliveira Consulting Unavailable AICHHOLZ, RIVETING MACHINE OPERATOR YAMILE Primary Care Unavailable WEST, DR SADI Oliveira Attending Unavailable WEST, DR SADI Oliveira Admitting Unavailable WEST, DR SADI Oliveira Consulting Unavailable AICHHOLZ, RIVETING MACHINE OPERATOR YAMILE Primary Care Unavailable WEST, DR SADI Oliveira Attending Unavailable WEST, DR SADI Oliveira Admitting Unavailable ZIEBER, DR JOSE Crowley Consulting Unavailable WEST, DR SADI Oliveira Consulting Unavailable AICHHOLZ, RIVETING MACHINE OPERATOR YAMILE Primary Care Unavailable WEST, DR SADI Oliveira Attending Unavailable FANTA, DR SADI Oliveira Admitting Unavailable ZIEBER, DR JOSE Crowley Consulting Unavailable FANTA, DR SADI Oliveira Admitting Unavailable WEST, DR SADI Oliveira Attending Unavailable AICHHOLZ, RIVETING MACHINE OPERATOR YAMILE Primary Care Unavailable WEST, DR SADI Oliveira Consulting Unavailable AICHHOLZ, RIVETING MACHINE OPERATOR YAMILE Consulting Unavailable AICHHOLZ, RIVETING MACHINE OPERATOR YAMILE Primary Care Unavailable AICHHOLZ, RIVETING MACHINE OPERATOR YAMILE Attending Unavailable AICHHOLZ, RIVETING MACHINE OPERATOR YAMILE Admitting Unavailable AICHHOLZ, RIVETING MACHINE OPERATOR YAMILE Admitting Unavailable AICHHOLZ, RIVETING MACHINE OPERATOR YAMILE Attending Unavailable AICHHOLZ, RIVETING MACHINE OPERATOR YAMILE Primary Care Unavailable AICHHOLZ, RIVETING MACHINE OPERATOR YAMILE Consulting Unavailable ADONAY, DR JOSE Crowley Consulting Unavailable AICHHOLZ, RIVETING MACHINE OPERATOR YAMILE Consulting Unavailable AICHHOLZ, RIVETING MACHINE OPERATOR YAMILE Primary Care Unavailable AICHHOLZ, RIVETING MACHINE OPERATOR YAMILE Attending Unavailable AICHHOLZ, RIVETING MACHINE OPERATOR YAMILE Admitting Unavailable ADONAY, DR JOSE Crowley Consulting Unavailable FRANDY ., DR MATOS Attending Unavailable FRANDY ., DR MATOS Admitting Unavailable AICHHOLZ, RIVETING MACHINE OPERATOR YAMILE Primary Care Unavailable FRANDY ., DR MATOS Consulting Unavailable CONNIE COTA Consulting Unavailable MARIAN HIGGINS Consulting Unavailable STAR Montejo, MADDIE Attending Unavailable STAR ., MADDIE Admitting Unavailable AICHHOLZ, RIVETING MACHINE OPERATOR YAMILE Primary Care Unavailable JOSE RICKETTS Consulting Unavailable STAR ., MADDIE Consulting Unavailable RONALDO, MARIAN Consulting Unavailable RONALDO, MARIAN Attending Unavailable RONALDO, MARIAN Admitting Unavailable AICHHOLZ, RIVETING MACHINE OPERATOR YAMILE Primary Care Unavailable PAKO JERRY Consulting Unavailable ANA VAZ Consulting Unavailable RONALDO, MARIAN Attending Unavailable RONALDO, MARIAN Admitting Unavailable AICHHOLZ, RIVETING MACHINE OPERATOR YAMILE Primary Care Unavailable LEROY PRETTY Consulting Unavailable Ludy Garcia Consulting Unavailable FANTA, DR SADI Oliveira Consulting Unavailable AICHHOLZ, RIVETING MACHINE OPERATOR YAMILE Primary Care Unavailable FANTA, DR SADI [...] 3 Episodic Other aftercare (1 source) Other middle or intermediate school principal (current) drug therapy; Translations: [OTH ASSISTED CURRENT DRUG THERAPY] Onset: 3 Episodic Other [...] Basophils (Bld) [#/Vol] 0.03 10*3/uL Normal <0.11 [facility] Comment on above: Order Comment: Speci men Type: BLOOD SPECIMEN Ordering Facility: [facility] Address: [address] [place], [place] [address] Performed By: #### 1 4196-0, 73920-4 #### [facility] [id number] [address] [place] [address] [place] Basophils/100 WBC (Bld) 0.5 % Normal [facility] Comment on above: Order Comment: Speci men Type: BLOOD SPECIMEN Ordering Facility: [facility] Address: [address] [place] [address] Performed By: #### 1 4196-0, 55796-4 #### [facility] [id number] [address] [place] [address] [place] Differential cell count method Nom (Bld) Auto Normal [facility] Comment on above: Order Comment: Speci men Type: BLOOD SPECIMEN Ordering Facility: [facility] Address: [address] [place] [address] Performed By: #### 1 4196-0, 90272-8 #### [facility] [id number] [address] [place] [address] [place] Eosinophils (Bld) [#/Vol] 0.10 10*3/uL Normal <0.46 [facility] Comment on above: Order Comment: Speci men Type: BLOOD SPECIMEN Ordering Facility: [facility] Address: [address] [place] [address] Performed By: #### 1 4196-0, 80925-3 #### [facility] [id number] [address] [place] [address] [place] Eosinophils/100 WBC (Bld) 1.8 % Normal [facility] Comment on above: Order Comment: Speci men Type: BLOOD SPECIMEN Ordering Facility: [facility] Address: [address] [place] [address] Performed By: #### 1 4196-0, 10053-8 #### [facility] [id number] [address] [place] [address] [place] Erythrocyte distribution width (RBC) [Ratio] 16.5 % High 11.5-15.0 [facility] Comment on above: Order Comment: Speci men Type: BLOOD SPECIMEN Ordering Facility: [facility] Address: [address] [place] [address] Performed By: #### 1 4196-0, 34530-3 #### [facility] [id number] [address] [place] [address] [place] Hematocrit (Bld) [Volume fraction] 34.9 % Low 36.0-46.0 [facility] Comment on above: Order Comment: Speci men Type: BLOOD SPECIMEN Ordering Facility: [facility] Address: [address] [place] [address] Performed By: #### 1 4196-0, 97257-5 #### [facility] [id number] [address] [place] [address] [place] Hemoglobin (Bld) [Mass/Vol] 10.5 g/dL Low 11.5-15.5 [facility] Comment on above: Order Comment: Speci men Type: BLOOD SPECIMEN Ordering Facility: [facility] Address: [address] [place] [address] Performed By: #### 1 4196-0, 44824-6 #### [facility] [id number] [address] [place] [address] [place] Immature granulocytes (Bld) [#/Vol] 10*3/uL Normal <0.10 [facility] Comment on above: Order Comment: Speci men Type: BLOOD SPECIMEN Ordering Facility: [facility] Address: [address] [place] [address] Performed By: #### 1 4196-0, 39481-4 #### [facility] [place] [id number] [address] [place] [address] [place] Immature granulocytes/100 WBC (Bld) 0.2 % Normal [facility] Comment on above: Order Comment: Speci men Type: BLOOD SPECIMEN Ordering Facility: [facility] Address: [address] [place] [address] Performed By: #### 1 4196-0, 33054-6 #### [facility] [id number] [address] [place] [address] [place] Lymphocytes (Bld) [#/Vol] 1.77 10*3/uL Normal 1.00-4.00 [facility] Comment on above: Order Comment: Speci men Type: BLOOD SPECIMEN Ordering Facility: [facility] Address: [address] [place] [address] Performed By: #### 1 4196-0, 39200-5 #### [facility] [id number] [address] [place] [address] [place] Lymphocytes/100 WBC (Bld) 31.3 % Normal [facility] Comment on above: Order Comment: Speci men Type: BLOOD SPECIMEN Ordering Facility: [facility] Address: [address] [place] [address] Performed By: #### 1 4196-0, 17733-8 #### [facility] [id number] [address] [place] [address] [place] MCH (RBC) [Entitic mass] 17.9 pg Low 26.0-34.0 [facility] Comment on above: Order Comment: Speci men Type: BLOOD SPECIMEN Ordering Facility: [facility] Address: [address] [place] [address] Performed By: #### 1 4196-0, 45825-7 #### [facility] [id number] [address] [place] [address] [place] MCHC (RBC) [Mass/Vol] 30.1 g/dL Low 30.5-36.0 [facility] Comment on above: Order Comment: Speci men Type: BLOOD SPECIMEN Ordering Facility: [facility] Address: [address] [place] [address] Performed By: #### 1 4196-0, 51298-4 #### [facility] [id number] [address] [place] [address] [place] MCV (RBC) [Entitic vol] 59.7 fL Low 80.0-100.0 [facility] Comment on above: Order Comment: Speci men Type: BLOOD SPECIMEN Ordering Facility: [facility] Address: [address] [place] [address] Performed By: #### 1 4196-0, 07587-1 #### [facility] [id number] [address] [place] [address] [place] Monocytes (Bld) [#/Vol] 0.25 10*3/uL Normal <0.87 [facility] Comment on above: Order Comment: Speci men Type: BLOOD SPECIMEN Ordering Facility: [facility] Address: [address] [place] [address] Performed By: #### 1 4196-0, 08828-5 #### [facility] [id number] [address] [place] [address] [place] Monocytes/100 WBC (Bld) 4.4 % Normal [facility] Comment on above: Order Comment: Speci men Type: BLOOD SPECIMEN Ordering Facility: [facility] Address: [address] [place] [address] Performed By: #### 1 4196-0, 00105-2 #### [facility] [id number] [address] [place] [address] [place] Neutrophils (Bld) [#/Vol] 3.49 10*3/uL Normal 1.45-7.50 [facility] Comment on above: Order Comment: Speci men Type: BLOOD SPECIMEN Ordering Facility: [facility] Address: [address] [place] [address] Performed By: #### 1 4196-0, 51921-0 #### [facility] [id number] [address] [place] [address] [place] Neutrophils/100 WBC (Bld) 61.8 % Normal [facility] Comment on above: Order Comment: Speci men Type: BLOOD SPECIMEN Ordering Facility: [facility] Address: [address] [place] [address] Performed By: #### 1 4196-0, 94953-9 #### [facility] [place] [id number] [address] [place] [address] [place] Nucleated RBC (Bld) [#/Vol] 10*3/uL Normal <0.01 [facility] Comment on above: Order Comment: Speci men Type: BLOOD SPECIMEN Ordering Facility: [facility] Address: [address] [place] [address] Performed By: #### 1 4196-0, 86653-3 #### [facility] [place] [id number] [address] [place] [address] [place] Nucleated RBC/100 WBC (Bld) [Ratio] 0.0 /100 WBC Normal [facility] Comment on above: Order Comment: Speci men Type: BLOOD SPECIMEN Ordering Facility: [facility] Address: [address] [place] [address] Performed By: #### 1 4196-0, 26921-2 #### [facility] [place] [id number] [address] [place] [address] [place] Platelet mean volume (Bld) [Entitic vol] 10.5 fL Normal 9.0-12.7 [facility] Comment on above: Order Comment: Speci men Type: BLOOD SPECIMEN Ordering Facility: [facility] Address: [address] [place] [address] Performed By: #### 1 4196-0, 92184-0 #### [facility] CLIA [id number] [address] [place] [address] [place] Platelets (Bld) [#/Vol] 325 10*3/uL Normal 150-400 [facility] Comment on above: Order Comment: Speci men Type: BLOOD SPECIMEN Ordering Facility: [facility] Address: [address] [place] [address] Result Comment: Resu lts checked and verified.No clot detected. Performed By: #### 1 4196-0, 93440-5 #### [facility] CLIA [id number] [address] [place] [address] [place] RBC (Bld) [#/Vol] 5.85 10*6/uL High 3.90-5.20 [facility] Comment on above: Order Comment: Speci men Type: BLOOD SPECIMEN Ordering Facility: [facility] Address: [address] [place] [address] Performed By: #### 1 4196-0, 82200-4 #### [facility] CLIA [id number] [address] [place] [address] [place] WBC (Bld) [#/Vol] 5.65 10*3/uL Normal 3.70-11.00 [facility] Comment on above: Order Comment: Speci men Type: BLOOD SPECIMEN Ordering Facility: [facility] Address: [address] [place] [address] Performed By: #### 1 4196-0, 13616-8 #### [facility] CLIA [id number] [address] [place] [address] [place] CNOVSPon 2023 CNOVSP Visit (SP) Office ([facility]) TORIE JOHNSTON ([id number]) 1990 F Date Time Provider Department 06/20/23 2:00 PM FRANCIS MA [facility] During your visit today, we recorded the following information about you: Pulse Respiration Blood pressure Weight 86/minute 20/minute 127/81 106.3 kg Height Last Period 1.6 m 06/17/23 Francis Ma MD 2023 2:44 PM Signed [facility], [place] Department of Hematologic Oncology and Blood Disorders PATIENT NAME: Torie Crowley [facility] NO: [id number] ATTENDING PHYSICIAN: Francis Ma MD. DATE OF [...] Abs Lymph 1.00 - 4.00 k/uL 1.42 [place]ord% % 5.3 Abs [place]ord <0.87 k/uL 0.21 Eosin% % 1.5 Abs [...] in 2018 during ). 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 She was placed on folic acid. [...] of transfusion (more content not included)... Normal [facility] Comprehensive metabolic 2000 panelon 2023 Albumin [Mass/Vol] 4.4 g/dL Normal 3.9-4.9 [facility] Comment on above: Order Comment: Speci men Type: BLOOD SPECIMEN Ordering Facility: [facility] Address: [address] [place] [address] Performed By: #### 2 4323-8, 54932-6 #### [facility] CLIA [id number] [address] [place] [address] [place] ALP [Catalytic activity/Vol] 68 U/L Normal 34-123 [facility] Comment on above: Order Comment: Speci men Type: BLOOD SPECIMEN Ordering Facility: [facility] Address: [address] [place] [address] Performed By: #### 2 4323-8, 04581-7 #### [facility] [place] [id number] [address] [place] [address] [place] ALT [Catalytic activity/Vol] 28 U/L Normal 7-38 [facility] Comment on above: Order Comment: Speci men Type: BLOOD SPECIMEN Ordering Facility: [facility] Address: [address] [place] [address] Performed By: #### 2 4323-8, 01942-8 #### [facility] [place] [id number] [address] [place] [address] [place] Anion gap [Moles/Vol] 10 mmol/L Normal 9-18 [facility] Comment on above: Order Comment: Speci men Type: BLOOD SPECIMEN Ordering Facility: [facility] Address: [address] [place] [address] Performed By: #### 2 4323-8, 27284-2 #### [facility] [place] [id number] [address] [place] [address] [place] AST [Catalytic activity/Vol] 22 U/L Normal 13-35 [facility] Comment on above: Order Comment: Speci men Type: BLOOD SPECIMEN Ordering Facility: [facility] Address: [address] [place] [address] Performed By: #### 2 4323-8, 31522-0 #### [facility] [place] [id number] [address] [place] [address] [place] Bilirubin [Mass/Vol] 0.4 mg/dL Normal 0.2-1.3 [facility] Comment on above: Order Comment: Speci men Type: BLOOD SPECIMEN Ordering Facility: [facility] Address: [address] [place] [address] Performed By: #### 2 4323-8, 82308-4 #### [facility] CLIA [id number] [address] [place] [address] [place] Calcium [Mass/Vol] 9.1 mg/dL Normal 8.5-10.2 [facility] Comment on above: Order Comment: Speci men Type: BLOOD SPECIMEN Ordering Facility: [facility] Address: [address] [place] [address] Performed By: #### 2 4323-8, 75515-6 #### [facility] CLIA [id number] [address] [place] [address] [place] Chloride [Moles/Vol] 106 mmol/L High 97-105 [facility] Comment on above: Order Comment: Speci men Type: BLOOD SPECIMEN Ordering Facility: [facility] Address: [address] [place] [address] Performed By: #### 2 4323-8, 49327-8 #### [facility] CLIA [id number] [address] [place] [address] [place] CO2 [Moles/Vol] 25 mmol/L Normal 22-30 [facility] Comment on above: Order Comment: Speci men Type: BLOOD SPECIMEN Ordering Facility: [facility] Address: [address] [place] [address] Performed By: #### 2 4323-8, 77226-6 #### [facility] CLIA [id number] [address] [place] [address] [place] Creatinine [Mass/Vol] 0.90 mg/dL Normal 0.58-0.96 [facility] Comment on above: Order Comment: Speci men Type: BLOOD SPECIMEN Ordering Facility: [facility] Address: [address] [place] [address] Performed By: #### 2 4323-8, 69309-0 #### [facility] [place] [id number] [address] [place] [address] [place] Creatinine and Glomerular filtration rate.predicted panel (S/P/Bld) 86 mL/min/1.73m??? Normal >=60 [facility] Comment on above: Order Comment: Tiffanie spence Type: BLOOD SPECIMEN Ordering Facility: [facility] Address: [address] [place] [address] Result Comment: Kenyatta mated Glomerular Filtration Rate [...] actual GFR. Performed By: #### 2 4323-8, 62593-4 #### [facility] [place] [id number] [address] [place] [address] [place] Glucose [Mass/Vol] 92 mg/dL Normal 74-99 [facility] Comment on above: Order Comment: Tiffanie spence Type: BLOOD SPECIMEN Ordering Facility: [facility] Address: [address] [place] [address] Result Comment: The [place] [employer] (ADA) provides guidance for cutoff [...] Standards of Medical Care in Diabetes 2016, [place] [employer]. Diabetes Care. 2016.39(Suppl 1). Performed By: #### 2 4323-8, 44718-2 #### [facility] [place] [id number] [address] [place] [address] [place] Potassium [Moles/Vol] 4.0 mmol/L Normal 3.7-5.1 [facility] Comment on above: Order Comment: Speci men Type: BLOOD SPECIMEN Ordering Facility: [facility] Address: [address] [place] [address] Performed By: #### 2 4323-8, 84345-1 #### [facility] [id number] [address] [place] [address] [place] Protein [Mass/Vol] 7.4 g/dL Normal 6.3-8.0 [facility] Comment on above: Order Comment: Speci men Type: BLOOD SPECIMEN Ordering Facility: [facility] Address: [address] [place] [address] Performed By: #### 2 4323-8, 00901-5 #### [facility] [id number] [address] [place] [address] [place] Sodium [Moles/Vol] 141 mmol/L Normal 136-144 [facility] Comment on above: Order Comment: Speci men Type: BLOOD SPECIMEN Ordering Facility: [facility] Address: [address] [place] [address] Performed By: #### 2 4323-8, 00557-3 #### [facility] [id number] [address] [place] [address] [place] Urea nitrogen [Mass/Vol] 16 mg/dL Normal 7-21 [facility] Comment on above: Order Comment: Speci men Type: BLOOD SPECIMEN Ordering Facility: [facility] Address: [address] [place] [address] Performed By: #### 2 4323-8, 67968-8 #### [facility] [id number] [address] [place], [place] [id number] [place] Ferritin SerPl-mCncon 2023 Ferritin [Mass/Vol] 73.6 ng/mL Normal 14.7-205.1 [facility] Comment on above: Order Comment: Speci men Type: BLOOD SPECIMEN Ordering Facility[facility] Address: [address] [place] [address] Performed By: #### 4 542-7, 2276-4 #### [facility] CLIA [id number] [address] [place] [address] [place] Haptoglob SerPl-mCncon 06-20 Haptoglobin [Mass/Vol] 66 mg/dL Normal 31-238 [facility] Comment on above: Order Comment: Speci men Type: BLOOD SPECIMEN Ordering Facility: [facility] Address: [address] [place] [address] Performed By: #### 4 542-7, 2276-4 #### [facility] CLIA [id number] [address] [place] [address] [place] Iron and Iron binding capaci ty panelon 2023 Iron [Mass/Vol] 66 ug/dL Normal 41-186 [facility] Comment on above: Order Comment: Speci men Type: BLOOD SPECIMEN Ordering Facility: [facility] Address: [address] [place] [address] Performed By: #### 2 4323-8, 41017-2 #### [facility] CLIA [id number] [address] [place] [address] [place] Iron binding capacity [Mass/Vol] 352 ug/dL Normal 232-386 [facility] Comment on above: Order Comment: Speci men Type: BLOOD SPECIMEN Ordering Facility: [facility] Address: [address] [place] [address] Performed By: #### 2 4323-8, 05116-7 #### [facility] CLIA [id number] [address] [place] [address] [place] Iron/TIBC [Molar ratio] 18.8 % Normal 15.0-57.0 [facility] Comment on above: Order Comment: Speci men Type: BLOOD SPECIMEN Ordering Facility: [facility] Address: [address] [place] [address] Performed By: #### 2 4323-8, 97959-0 #### [facility] [id number] [address] [place] [address] [place] LDH SerPl-cCncon 2023 LDH [Catalytic activity/Vol] 193 U/L Normal 135-214 [facility] Comment on above: Order Comment: Speci men Type: BLOOD SPECIMEN Ordering Facility: [facility] Address: [address] [place] [address] Performed By: #### 2 532-0 #### [facility] [id number] [address] [place] [address] [place] Retics #on 2023 Reticulocytes (Bld) [#/Vol] 0.30640 10*3/uL High 0.018-0.100 [facility] Comment on above: Order Comment: Speci men Type: BLOOD SPECIMEN Ordering Facility: [facility] Address: [address] [place] [address] Performed By: #### 1 4196-0, 24835-5 #### [facility] [id number] [address] [place] [address] [place] Reticulocytes (Bld) [#/Vol]o n 2023 Reticulocytes/100 RBC (Bld) 2.2 % High 0.4-2.0 [facility] Comment on above: Order Comment: Speci men Type: BLOOD SPECIMEN Ordering Facility: [facility] Address: [address] [place] [address] Performed By: #### 1 4196-0, 61651-7 #### [facility] [id number] [address] [place] [address] OF [facility] CBC AUTO DIFFon 09-20-2022 BASO # 0.0 103/ul Normal 0.0-0.1 [facility] Comment on above: Performed By: #### C BC ####[facility] [address] [place] [address]Dr. Zuly Aparicio Basophils/100 WBC (Bld) 0.5 % Normal 0.2-2.0 [facility] Comment on above: Performed By: #### C BC ####[facility] [address] [place] [address]Dr. Zuly Aparicio EO # 0.1 103/ul Normal 0.0-0.7 [facility] Comment on above: Performed By: #### C BC ####[facility] [address] [place] [address]Dr. Zuly Aparicio Eosinophils/100 WBC (Bld) 1.5 % Normal 0.9-7.0 [facility] Comment on above: Performed By: #### C BC ####[facility] [address] [place] [address]Dr. Zuly Aparicio Erythrocyte distribution width (RBC) [Ratio] 15.8 % Critically high 11.0-15.0 [facility] Comment on above: Performed By: #### C BC ####[facility] [address] [place] [address]Dr. Zuly Aparicio Hematocrit (Bld) [Volume fraction] 34.1 % Critically low 36.0-48.0 [facility] Comment on above: Performed By: #### C BC ####[facility] [address] [place] [address]Dr. Zuly Aparicio Hemoglobin (Bld) [Mass/Vol] 10.1 g/dL Critically low 12.0-16.0 [facility] Comment on above: Performed By: #### C BC ####[facility] [address] [place] [address]Dr. Zuly Aparicio IG # 0.01 10e3/ul Normal 0.00-0.03 [facility] Comment on above: Performed By: #### C BC ####[facility] [address] [place] [address]Dr. Zuly Aparicio IG % 0.2 % Normal 0.0-0.5 [facility] Comment on above: Performed By: #### C BC ####[facility] [address] [place] [address]Dr. Zuly Aparicio LYMPH # 1.6 103/ul Normal 1.2-3.8 [facility] Comment on above: Performed By: #### C BC ####[facility] [address]qufr[address] [place] [address]Dr. Zuly Aparicio Lymphocytes/100 WBC (Bld) 39.2 % Normal 20.5-60.0 [facility] Comment on above: Performed By: #### C BC ####[facility] [address]zdmmwp[address] [place] [address]Dr. Zuly Aparicio MANUAL DIFF REQ NO Normal [facility] Comment on above: Performed By: #### C BC ####[facility] [address] [place] [address]Dr. Zuly Aparicio MCH (RBC) [Entitic mass] 17.7 pg Critically low 26.7-34.0 [facility] Comment on above: Performed By: #### C BC ####[facility] [address] [place] [address]Dr. Zuly Aparicio MCHC (RBC) [Mass/Vol] 29.6 g/dL Critically low 29.9-35.2 [facility] Comment on above: Performed By: #### C BC ####[facility] [address]fl[address] [place] [address]Dr. Zuly Aparicio MCV (RBC) [Entitic vol] 59.7 fL Critically low 81.0-99.0 [facility] Comment on above: Performed By: #### C BC ####[facility] [address]qbw[address] [place] [address]Dr. Zuly Aparicio MONO # 0.3 103/ul Normal 0.3-0.8 [facility] Comment on above: Performed By: #### C BC ####[facility] [address] [place] [address]Dr. Zuly Aparicio Monocytes/100 WBC (Bld) 6.5 % Normal 1.7-12.0 [facility] Comment on above: Performed By: #### C BC ####[facility] [address]jxbwfx[address] [place] [address]Dr. Zuly Aparicio NEUT # 2.1 103/ul Normal 1.4-6.5 [facility] Comment on above: Performed By: #### C BC ####[facility] [address]ts[address] [place] [address]Dr. Zuly Aparicio Neutrophils/100 WBC (Bld) 52.1 % Normal 43.0-75.0 [facility] Comment on above: Performed By: #### C BC ####[facility] [address]wmktbwdw22[address] [place] [address]Dr. Zuly Aparicio Platelet mean volume (Bld) [Entitic vol] 10.0 fL Normal 9.5-13.5 [facility] Comment on above: Performed By: #### C BC ####[facility] [address]lc[address]so[address] [place] [address]Dr. Zuly Aparicio PLT 333 103/ul Normal 150-450 [facility] Comment on above: Performed By: #### C BC ####[facility] Egqtqjclmy[address] [place] [address]Dr. Zuly Aparicio RBC 5.71 106/ul Critically high 4.20-5.40 The [facility] Comment on above: Performed By: #### C BC ####[facility] [address]eqy[address] [place] [address]Dr. Zuly Aparicio WBC 4.0 103/ul Normal 4.0-11.0 [facility] Comment on above: Performed By: #### C BC ####[facility] [address]as[address]qel[address] [place] [address]Dr. Zuly Aparicio FREE T4on 09-20-2022 Free T4 [Mass/Vol] 1.11 ng/dL Normal 0.76-1.46 [facility] Comment on above: Performed By: #### E JEFERSON HOOPER #### [facility] [address] [place] [address] Dr. Zuly Aparicio IRONon 09-20-2022 Iron [Mass/Vol] 89.0 ug/dL Normal 50.0-170.0 [facility] Comment on above: Performed By: #### CHAYITO ASHERRO #### [facility] [address] [place] [address] Dr. Zuly Aparicio PROF 14(COMP METB)on 023 Albumin [Mass/Vol] 3.7 g/dL Normal 3.4-5.0 [facility] Comment on above: Performed By: #### CHAYITO ASHERRO #### [facility] [address] [place] [address] Dr. Zuly Aparicio Albumin/Globulin [Mass ratio] 1.0 {ratio} Normal [facility] Comment on above: Performed By: #### CHAYITO ASHERRO #### [facility] [address] [place] [address] Dr. Zuly Aparicio ALP [Catalytic activity/Vol] 63 U/L Normal 46-116 [facility] Comment on above: Performed By: #### CHAYITO ASHERRO #### [facility] [address] [place] [address] Dr. Zuly Aparicio ALT [Catalytic activity/Vol] 50 U/L Normal 14-59 [facility] Comment on above: Performed By: #### CHAYITO ASHERRO #### [facility] [address] [place] [address] Dr. Zuly Aparicio Anion gap [Moles/Vol] 10.4 mmol/L Normal [facility] Comment on above: Performed By: #### CHAYITO ASHERRO #### [facility] [address] [place] [address] Dr. Zuly Aparicio AST [Catalytic activity/Vol] 24 U/L Normal 15-37 [facility] Comment on above: Performed By: #### JEFERSON ASHER #### [facility] [address] [place] [address] Dr. Zuly Aparicio Bilirubin [Mass/Vol] 0.5 mg/dL Normal 0.2-1.0 [facility] Comment on above: Performed By: #### CHAYITO ASHERRO #### [facility] [address] [place] [address] Dr. Zuly Aparicio Calcium [Mass/Vol] 8.8 mg/dL Normal 8.5-10.1 [facility] Comment on above: Performed By: #### CHAYITO ASHERRO #### [facility] [address] [place] [address] Dr. Zuly Aparicio Chloride [Moles/Vol] 108 mmol/L Critically high 98-107 [facility] Comment on above: Performed By: #### CHAYITO ASHERRO #### [facility] [address] [place] [address] Dr. Zuly Aparicio CO2 [Moles/Vol] 27.5 mmol/L Normal 21.0-32.0 The [facility] Comment on above: Performed By: #### CHAYITO ASHERRO #### [facility] [address] [place] [address] Dr. Zuly Aparicio Creatinine [Mass/Vol] 0.94 mg/dL Normal 0.55-1.02 [facility] Comment on above: Performed By: #### CHAYITO ASHERRO #### [facility] [address] [place] [address] Dr. Zuly Aparicio EGFR-AF GEORGIAN >60 Normal >=60 The [facility] Comment on above: Performed By: #### CHAYITO ASHERRO #### [facility] [address] [place] [address] Dr. Zuly Aparicio EGFR-NON AF GEORGIAN >60 Normal >=60 [facility] Comment on above: Performed By: #### CHAYITO ASHERRO #### [facility] [address] [place] [address] Dr. Zuly Aparicio Globulin (S) [Mass/Vol] 3.7 g/dL Normal [facility] Comment on above: Performed By: #### CHAYITO ASHERRO #### [facility] [address] [place] [address] [address] Zuly Aparicio Glucose [Mass/Vol] 83 mg/dL Normal 74-106 [facility] Comment on above: Performed By: #### Roshan HOOPER UMICRO #### [facility] [address] [place] [address] [address] Zuly Aparicio Potassium [Moles/Vol] 3.9 mmol/L Normal 3.5-5.1 [facility] Comment on above: Performed By: #### Roshan HOOPER UMICRO #### [facility] [address] [place] [address] Dr. Zuly Aparicio Protein [Mass/Vol] 7.4 g/dL Normal 6.4-8.2 [facility] Comment on above: Performed By: #### Roshan HOOPER UMFAVIOLARO #### [facility] [address] [place] [address] Dr. Zuly Aparicio Sodium [Moles/Vol] 142 mmol/L Normal 136-145 [facility] Comment on above: Performed By: #### Roshan HOOPER UMICRO #### [facility] [address] [place] [address] Dr. Zuly Aparicio Urea nitrogen [Mass/Vol] 14.0 mg/dL Normal 7.0-18.0 [facility] Comment on above: Performed By: #### Roshan HOOPER UMICRO #### [facility] [address] [place] [address] [address] Zuly Aparicio Urea nitrogen/Creatinine [Mass ratio] 14.9 mg/mg Normal [facility] Comment on above: Performed By: #### Roshan HOOPER UMICRO #### [facility] [address] [place] [address] Dr. Zuly Aparicio TSHon 09-20-2022 TSH 1.491 uIU/mL Normal 0.358-3.740 [facility] Comment on above: Performed By: #### Roshan HOOPER UMICRO #### [facility] [address] [place] [address] Dr. Zuly Aparicio VC INJ SCL [employer] CARD ASSOCIATE VEINSon 0 4-11-2023 VC INJ SCL [employer] VEINS Patient: TORIE JOHNSTON Exam Date: 09/04/2022 : 1990 Gender:F Ordering : DR SADI JEWELL M.D. Admission #: [id number] Family : Order #: [id number] CLICK HERE TO VIEW EXAM RADIOLOGY REPORT [...] M.D. on 09/04/2022 at 12:00 Normal [facility] Covid-19 PCR (CVDTBH)on SARS-CoV-2 (COVID-19) RNA BORIS+probe Ql (Unsp spec) Not detected Normal NOT DETECTED [facility] Comment on above: Result Comment: This test is not yet approved or cleared by the [place] FDA. When there are no FDA-approved or cleared tests available, and other criteria are met, FDA can make tests available under an emergency access mechanism called an Emergency Use Authorization (EUA). The EUA for this test is supported by the [place] of Health and Human Service's (HHS's) declaration [...] SARS-CoV-2. Performed By: #### T SH #### [facility] [address] [place] [address] Dr. Zuly Aparicio INFLUENZA A AND B AGon 08-27 INFLUANEGH SEE BELOW Normal [facility] Comment on above: Result Comment: Nega tive for Flu A protein angiten. Infection due to Flu A cannot be ruled out. Flu A angiten in the sample may be below the detection limit of the test. Performed By: #### T SH #### [facility] [address] [place] [address] Dr. Zuly Aparicio INFLUBNEGH SEE BELOW Normal [facility] Comment on above: Result Comment: Nega tive for Flu B protein antigen. Infection due to Flu B cannot be ruled out. Flu B antigen in the sample may be below the detection limit of the test. Performed By: #### T SH #### [facility] [address] [place] [address] Dr. Zuly Aparicio INFLUENZA A AG Negative Normal NEGATIVE SEE COMMENT [facility] Comment on above: Performed By: #### T SH #### [facility] [address] [place] [address] Dr. Zuly Aparicio INFLUENZA B AG Negative Normal NEGATIVE SEE COMMENT [facility] Comment on above: Performed By: #### T SH #### [facility] [address] [place] [address] Dr. Zuly Aparicio SYMPTOMATIC COVID-19 ANTIGEN on 08-27-2022 EUA Statement SEE BELOW Normal [facility] Comment on above: Result Comment: This [...] sooner. Performed By: #### C VDAGS #### [facility] [address] [place] [address] Dr. Zuly Apaircio SARS-CoV-2 (COVID-19) RNA BORIS+probe Ql (Unsp spec) Negative Normal NEGATIVE [facility] Comment on above: Performed By: #### C VDAGS #### [facility] [address] [place] [address] Dr. Zuly Aparicio XR CHEST 1 Von [...] JOSE WOOD Date: 2022-08-27 17:17 Normal [facility] VC CONSULT FOLLOWUPon 2022 VC CONSULT FOLLOWUP Patient: TORIE JOHNSTON Exam Date: 08/21/2022 : 1990 Gender:F Ordering : DR SADI JEWELL M.D. Admission #: [id number] Family : Order #: [id number] CLICK HERE TO VIEW EXAM RADIOLOGY REPORT [...] Sadi Jewell MD on 08/21/2022 at 11:18 [facility] VC EXT VENOUS RT LIMITEDon 0 08-21-2022 VC EXT VENOUS RT LIMITED Patient: TORIE JOHNSTON Exam Date: 08/21/2022 : 1990 Gender:F Ordering : DR SADI JEWELL M.D. Admission #: [id number] Family : Order #: [id number] CLICK HERE TO VIEW EXAM RADIOLOGY REPORT [...] Sadi Jewell MD on 08/21/2022 at 09:43 [facility] VC INJ FOAM SCLERO W US MLTI on 08-16-2022 VC INJ FOAM SCLERO W US MLTI Patient: TORIE JOHNSTON Exam Date: 08/16/2022 : 1990 Gender:F Ordering : DR SADI JEWELL M.D. Admission #: [id number] Family : Order #: [id number] CLICK HERE TO VIEW EXAM RADIOLOGY REPORT [...] Jose Wood M.D. on 08/16/2022 at 11:58 [facility] W MANUAL DIFFon 05-16- 22 ATYPICAL LYMPH # 0.32 103/ul Normal [facility] Comment on above: Performed By: #### T SH #### [facility] [address] [place] [address] Dr. Zuly Aparicio ATYPICAL LYMPH % 3 % Normal [facility] Comment on above: Performed By: #### T SH #### [facility] [address] [place] [address] [address] Zuly Aparicio BAND # 0.0 103/ul Normal 0.0-0.3 [facility] Comment on above: Performed By: #### T SH #### [facility] [address] [place] [address] Dr. Zuly Aparicio BAND % 0 % Normal 0-5 [facility] Comment on above: Performed By: #### T SH #### [facility] [address] [place] [address] Dr. Zuly Aparicio BASOM # 0.00 103/ul Normal 0.00-0.10 [facility] Comment on above: Performed By: #### T SH #### [facility] [address] [place] [address] Dr. Zuly Aparicio BASOM % 0.0 % Critically low 0.2-2.0 [facility] Comment on above: Performed By: #### T SH #### [facility] [address] [place] [address] Dr. Zuly Aparicio BLAST # Normal [facility] Comment on above: Performed By: #### T SH #### [facility] [address] [place] [address] Dr. Zuly Aparicio BLAST % Normal [facility] Comment on above: Performed By: #### T SH #### [facility] [address] [place] [address] Dr. Zuly Aparicio CORRECTED WBC Normal 4.0-11.0 [facility] Comment on above: Performed By: #### T SH #### [facility] [address] [place] [address] Dr. Zuly Aparicio EOS # 0.10 103/ul Normal 0.00-0.70 [facility] Comment on above: Performed By: #### T SH #### [facility] [address] [place] [address] [address] Zuly Aparicio EOS% 1.0 % Normal 0.9-7.0 [facility] Comment on above: Performed By: #### T SH #### [facility] [address] [place] [address] [address] Zuly Aparicio HCT 34.3 % Critically low 36.0-48.0 [facility] Comment on above: Performed By: #### T SH #### [facility] [address] [place] [address] [address] Zuly Aparicio HGB 10.6 g/dl Critically low 12.0-16.0 [facility] Comment on above: Performed By: #### T SH #### [facility] [address] [place] [address] Dr. Zuly Aparicio LYMPHM # 0.32 103/ul Critically low 1.20-3.80 [facility] Comment on above: Performed By: #### T SH #### [facility] [address] [place] [address] [address] Zuly Aparicio LYMPHM% 3.0 % Critically low 20.5-60.0 [facility] Comment on above: Performed By: #### T SH #### [facility] [address] [place] [address] [address] Zuly Aparicio MCH 18.2 pg Critically low 26.7-34.0 [facility] Comment on above: Performed By: #### T SH #### [facility] [address] [place] [address] [address] Zuly Aparicio MCHC 30.9 g/dl Normal 29.9-35.2 [facility] Comment on above: Performed By: #### T SH #### [facility] [address] [place] [address] Dr. Zuly Aparicio MCV 59.0 fL Critically low 81.0-99.0 [facility] Comment on above: Performed By: #### T SH #### [facility] [address] [place] [address] Dr. Zuly Aparicio METAMYELOCYTE # Normal [facility] Comment on above: Performed By: #### T SH #### [facility] [address] [place] [address] Dr. Zuly Aparicio METAMYELOCYTE % Normal [facility] Comment on above: Performed By: #### T SH #### [facility] [address] [place] [address] Dr. Zuly Aparicio MICROCYTOSIS 3+ Normal [facility] Comment on above: Performed By: #### T SH #### [facility] [address] [place] [address] Dr. Zuly Aparicio MONOM# 0.32 103/ul Normal 0.30-0.80 [facility] Comment on above: Performed By: #### T SH #### [facility] [address] [place] [address] Dr. Zuly Aparicio MONOM% 3.0 % Normal 1.7-12.0 [facility] Comment on above: Performed By: #### T SH #### [facility] [address] [place] [address] Dr. Zuly Aparicio MPV 10.6 fL Normal 9.5-13.5 [facility] Comment on above: Performed By: #### T SH #### [facility] [address] [place] [address] Dr. Zuly Aparicio MYELOCYTE # Normal [facility] Comment on above: Performed By: #### T SH #### [facility] [address] [place] [address] Dr. Zuly Aparicio MYELOCYTE % Normal [facility] Comment on above: Performed By: #### T SH #### [facility] [address] [place] [address] Dr. Zuly Aparicio NRBC Normal [facility] Comment on above: Performed By: #### T SH #### [facility] [address] [place] [address] Dr. Zuly Aparicio OVALOCYTES SLIGHT Normal [facility] Comment on above: Performed By: #### T SH #### [facility] [address] [place] [address] [address] Zuly Aparicio PLT 290 103/ul Normal 150-450 [facility] Comment on above: Performed By: #### T SH #### [facility] [address] [place] [address] [address] Zuly Aparicio RBC 5.81 106/ul Critically high 4.20-5.40 [facility] Comment on above: Performed By: #### T SH #### [facility] [address] [place] [address] [address] Zuly Aparicio RDW 15.4 % Critically high 11.0-15.0 [facility] Comment on above: Performed By: #### T SH #### [facility] [address] [place] [address] [address] Zuly Aparicio SEG # 9.45 103/ul Critically high 1.40-6.50 [facility] Comment on above: Performed By: #### T SH #### [facility] [address] [place] [address] [address] Zuly Aparicio SEG % 90.0 % Critically high 43.0-75.0 [facility] Comment on above: Performed By: #### T SH #### [facility] [address] [place] [address] [address] Zuly Aparicio TOXIC GRANULATION SLIGHT Normal [facility] Comment on above: Performed By: #### T SH #### [facility] [address] [place] [address] [address] Zuly Aparicio WBC 10.5 103/ul Normal 4.0-11.0 [facility] Comment on above: Performed By: #### T SH #### [facility] [address] [place] [address] [address] Zuly Aparicio CULTURE URINEon 05-16-2022 CULTURE URINE Culture Observations : LIGHT GROWTH OF MIXED GENITAL JI. NO POTENTIAL PATHOGENS SEEN. Normal [facility] Comment on above: Performed By: #### U RCX ####[facility] [address] [place] [address]Dr. Zuly Aparicio Covid-19 PCR (CVDTBH)on 04-27 SARS-CoV-2 (COVID-19) RNA BORIS+probe Ql (Unsp spec) Not detected Normal NOT DETECTED [facility] Comment on above: Result Comment: This test is not yet approved or cleared by the [place] FDA. When there are no FDA-approved or cleared tests available, and other criteria are met, FDA can make tests available under an emergency access mechanism called an Emergency Use Authorization (EUA). The EUA for this test is supported by the [place] of Health and Human Service's (HHS's) declaration [...] SARS-CoV-2. Performed By: #### T SH #### [facility] [address] [place] [address] Dr. Zuly Aparicio ER URINE PROFILEon 2 Bilirubin Ql (U) Negative Normal NEGATIVE [facility] Comment on above: Performed By: #### T SH #### [facility] [address] [place] [address] Dr. Zuly Aparicio Clarity (U) CLEAR Normal CLEAR [facility] Comment on above: Performed By: #### T SH #### [facility] [address] [place] [address] Dr. Zuly Aparicio Color (U) YELLOW Normal YELLOW [facility] Comment on above: Performed By: #### T SH #### [facility] [address] [place] [address] Dr. Zuly JUDD A micrscopic examination will be performed if indicated. Normal [facility] Comment on above: Performed By: #### T SH #### [facility] [address] [place] [address] Dr. Zuly Aparicio Glucose Ql (U) Negative Normal NEGATIVE [facility] Comment on above: Performed By: #### T SH #### [facility] [address] [place] [address] Dr. Zuly Aparicio Hemoglobin Ql (U) Negative Normal NEGATIVE [facility] Comment on above: Performed By: #### T SH #### [facility] [address] [place] [address] Dr. Zuly Aparicio Ketones Ql (U) TRACE Abnormal NEGATIVE [facility] Comment on above: Performed By: #### T SH #### [facility] [address] [place] [address] Dr. Zuly Aparicio LEUKOCYTES TRACE Abnormal NEGATIVE [facility] Comment on above: Performed By: #### T SH #### [facility] [address] [place] [address] Dr. Zuly Aparicio Nitrite Ql (U) Negative Normal NEGATIVE [facility] Comment on above: Performed By: #### T SH #### [facility] [address] [place] [address] Dr. Zuly Aparicio pH (U) 5.5 [pH] Normal 5-9 [facility] Comment on above: Performed By: #### T SH #### [facility] [address] [place] [address] Dr. Zuly Aparicio SPEC GRAVITY 1.020 Normal 1.005-<=1.02 5 [facility] Comment on above: Performed By: #### T SH #### [facility] [address] [place] [address] Dr. Zuly Aparicio UA PROTEIN Negative Normal NEGATIVE/ TRACE [facility] Comment on above: Performed By: #### T SH #### [facility] [address] [place] [address] Dr. Zuly Aparicio UR MICRO IND INDICATED Normal [facility] Comment on above: Performed By: #### T SH #### [facility] [address] [place] [address] Dr. Zuly Aparicio Urobilinogen Qn (U) 1.0 {Isamar'U}/dL Normal 0.2 - 1. 0 [facility] Comment on above: Performed By: #### T SH #### [facility] [address] [address] [address] Zuly Aparicio INFLUENZA A AND B AGon 05-16 INFLUENZA A AG Negative Normal NEGATIVE SEE COMMENT [facility] Comment on above: Performed By: #### I NFLUAB #### [facility] [address] [address] [address] Zuly Aparicio INFLUENZA B AG Negative Normal NEGATIVE SEE COMMENT [facility] Comment on above: Performed By: #### I NFLUAB #### [facility] [address] [address] [address] Zuly Aparicio INTERNAL CONTROLS Within Normal Limits Normal Wi thin Normal Limits [facility] Comment on above: Performed By: #### I NFLUAB #### [facility] [address] [address] [address] Zuly Aparicio PREG HCG QUALon 05-16-2022 , QUAL Negative Normal NEGATIVE [facility] Comment on above: Performed By: #### T SH #### [facility] [address] [address] [address] Zuly Aparicio PROF 14(COMP METB)on 022 Albumin [Mass/Vol] 3.6 g/dL Normal 3.4-5.0 [facility] Comment on above: Performed By: #### C MP #### [facility] [address] [place] [address] Dr. Zuly Aparicio Albumin/Globulin [Mass ratio] 0.9 {ratio} Normal [facility] Comment on above: Performed By: #### C MP #### [facility] [address] [place] [address] Dr. Zuly Aparicio ALP [Catalytic activity/Vol] 88 U/L Normal 46-116 [facility] Comment on above: Performed By: #### C MP #### [facility] [address] [place] [address] Dr. Zuly Aparicio ALT [Catalytic activity/Vol] 52 U/L Normal 14-59 [facility] Comment on above: Performed By: #### C MP #### [facility] [address] [address] [address] Zuly Aparicio Anion gap [Moles/Vol] 13.4 mmol/L Normal [facility] Comment on above: Performed By: #### C MP #### [facility] [address] [address] [address] Zuly Aparicio AST [Catalytic activity/Vol] 29 U/L Normal 15-37 [facility] Comment on above: Performed By: #### C MP #### [facility] [address] [place] [address] Dr. Zuly Aparicio Bilirubin [Mass/Vol] 1.2 mg/dL Critically high 0.2-1.0 [facility] Comment on above: Performed By: #### C MP #### [facility] [address] [place] [address] Dr. Zuly Aparicio Calcium [Mass/Vol] 8.7 mg/dL Normal 8.5-10.1 [facility] Comment on above: Performed By: #### C MP #### [facility] [address] [place] [address] Dr. Zuly Aparicio Chloride [Moles/Vol] 101 mmol/L Normal 98-107 [facility] Comment on above: Performed By: #### C MP #### [facility] [address] [place] [address] Dr. Zuly Aparicio CO2 [Moles/Vol] 25.5 mmol/L Normal 21.0-32.0 The [facility] Comment on above: Performed By: #### C MP #### [facility] [address] [place] [address] Dr. Zuly Aparicio Creatinine [Mass/Vol] 1.07 mg/dL Critically high 0.55-1.02 [facility] Comment on above: Performed By: #### C MP #### [facility] [address] [place] [address] Dr. Zuly Aparicio EGFR-AF GEORGIAN >60 Normal >=60 The [facility] Comment on above: Performed By: #### C MP #### [facility] [address] [place] [address] Dr. Zuly Aparicio EGFR-NON AF GEORGIAN 59 mL/min/1.73m2 Critically low >=60 [facility] Comment on above: Performed By: #### C MP #### [facility] [address] [address] [address] Zuly Aparicio Globulin (S) [Mass/Vol] 4.0 g/dL Normal [facility] Comment on above: Performed By: #### C MP #### [facility] [address] [address] [address] Zuly Aparicio Glucose [Mass/Vol] 111 mg/dL Critically high 74-106 [facility] Comment on above: Performed By: #### C MP #### [facility] [address] [place] [address] Dr. Zuly Aparicio Potassium [Moles/Vol] 3.9 mmol/L Normal 3.5-5.1 [facility] Comment on above: Performed By: #### C MP #### [facility] [address] [address] [address] Zuly Aparicio Protein [Mass/Vol] 7.6 g/dL Normal 6.4-8.2 [facility] Comment on above: Performed By: #### C MP #### [facility] [address] [place] [address] Dr. Zuly Aparicio Sodium [Moles/Vol] 136 mmol/L Normal 136-145 [facility] Comment on above: Performed By: #### C MP #### [facility] [address] [address] [address] Zuly Aparicio Urea nitrogen [Mass/Vol] 11.0 mg/dL Normal 7.0-18.0 [facility] Comment on above: Performed By: #### C MP #### [facility] [address] [place] [address] Dr. Zuly Aparicio Urea nitrogen/Creatinine [Mass ratio] 10.3 mg/mg Normal [facility] Comment on above: Performed By: #### C MP #### [facility] [address] [place] [address] Dr. Zuly Aparicio STREPT SCREENon 05-16-2022 STREP SCREEN A Positive Abnormal NEGATIVE [facility] Comment on above: Performed By: #### E CHAYITO HOOPERRO #### [facility] [address] [place] [address] Dr. Zuly Aparicio URINE MICROSCOPIC ONLYon BACTERIA MODERATE Abnormal NONE SEEN [facility] Comment on above: Performed By: #### T SH #### [facility] [address] [place] [address] Dr. Zuly Aparicio Bacteria identified Cx Nom (U) INDICATED Normal [facility] Comment on above: Performed By: #### T SH #### [facility] [address] [place] [address] Dr. Zuly Aparicio CAST NONE SEEN Normal NONE SEEN [facility] Comment on above: Performed By: #### T SH #### [facility] [address] [place] [address] Dr. Zuly Aparicio Crystals LM Nom (Urine sed) NONE SEEN Normal NONE SEEN [facility] Comment on above: Performed By: #### T SH #### [facility] [address] [place] [address] Dr. Zuly Aparicio Epithelial cells LM Ql (Urine sed) MANY Abnormal NONE SEEN /RARE [facility] Comment on above: Performed By: #### T SH #### [facility] [address] [place] [address] Dr. Zuly Aparicio MUCOUS NONE SEEN Normal NONE SEEN [facility] Comment on above: Performed By: #### T SH #### [facility] [address] [place] [address] Dr. Zuly Aparicio RBC 2-5 Abnormal 0-2 [facility] Comment on above: Performed By: #### T SH #### [facility] [address] [place] [address] Dr. Zuly Aparicio WBC 5-10 Abnormal NONE SEEN [facility] Comment on above: Performed By: #### T SH #### [facility] [address] [place] [address] Dr. Zuly Aparicio XR CHEST 1 Von [...] PAKO JERRY Date: 2022-05-16 05:03 Normal [facility] AMYLASEon 04-19-2022 Amylase [Catalytic activity/Vol] 41 U/L Normal 25-115 [facility] Comment on above: Performed By: #### L IPA, ANA #### [facility] [address] [place], [place] [address] Dr. Zuly Aparicio CBC AUTO DIFFon 04-19-2022 BASO # 0.0 103/ul Normal 0.0-0.1 [facility] Comment on above: Performed By: #### C BC ####[facility] [address] [address]Dr. Zuly Aparicio Basophils/100 WBC (Bld) 0.4 % Normal 0.2-2.0 [facility] Comment on above: Performed By: #### C BC ####[facility] [address] [address]Dr. Zuly Aparicio EO # 0.2 103/ul Normal 0.0-0.7 [facility] Comment on above: Performed By: #### C BC ####[facility] [address] [address]Dr. Zuly Aparicio Eosinophils/100 WBC (Bld) 3.2 % Normal 0.9-7.0 [facility] Comment on above: Performed By: #### C BC ####[facility] [address] [address]DrNikia Aparicio Erythrocyte distribution width (RBC) [Ratio] 15.7 % Critically high 11.0-15.0 [facility] Comment on above: Performed By: #### C BC ####[facility] [address] [address]Dr. Zuly Aparicio Hematocrit (Bld) [Volume fraction] 33.1 % Critically low 36.0-48.0 [facility] Comment on above: Performed By: #### C BC ####[facility] [address] [address]Dr. Zuly Aparicio Hemoglobin (Bld) [Mass/Vol] 10.3 g/dL Critically low 12.0-16.0 [facility] Comment on above: Performed By: #### C BC ####[facility] [address] [address]Dr. Lolacuauhtemoc Markus IG # 0.01 10e3/ul Normal 0.00-0.03 [facility] Comment on above: Performed By: #### C BC ####[facility] [address] [place], [place] [address]Dr. Zuly Aparicio IG % 0.2 % Normal 0.0-0.5 [facility] Comment on above: Performed By: #### C BC ####[facility] [address] [place], [place] [address]Dr. Zuly Aparicio LYMPH # 1.8 103/ul Normal 1.2-3.8 [facility] Comment on above: Performed By: #### C BC ####[facility] [address] [place], [place] [address]Dr. Zuly Aparicio Lymphocytes/100 WBC (Bld) 34.5 % Normal 20.5-60.0 [facility] Comment on above: Performed By: #### C BC ####[facility] [address] [place], [place] [address]Dr. Zuly Aparicio MANUAL DIFF REQ NO Normal [facility] Comment on above: Performed By: #### C BC ####[facility] [address] [place], [place] [address]Dr. Zuly Aparicio MCH (RBC) [Entitic mass] 18.5 pg Critically low 26.7-34.0 [facility] Comment on above: Performed By: #### C BC ####[facility] [address] [place], [place] [address]Dr. Zuly Aparicio MCHC (RBC) [Mass/Vol] 31.1 g/dL Normal 29.9-35.2 [facility] Comment on above: Performed By: #### C BC ####[facility] [address] [address]Dr. Zuly Aparicio MCV (RBC) [Entitic vol] 59.3 fL Critically low 81.0-99.0 [facility] Comment on above: Performed By: #### C BC ####[facility] [address] [address]Dr. Zuly Markus MONO # 0.3 103/ul Normal 0.3-0.8 [facility] Comment on above: Performed By: #### C BC ####[facility] [address] [address]Dr. Lolacuauhtemoc Aparicio Monocytes/100 WBC (Bld) 5.9 % Normal 1.7-12.0 [facility] Comment on above: Performed By: #### C BC ####[facility] [address] [place], [place] [address]Dr. Zuly Aparicio NEUT # 2.9 103/ul Normal 1.4-6.5 [facility] Comment on above: Performed By: #### C BC ####[facility] [address] [place], [place] [address]Dr. Lolacuauhtemoc Aparicio Neutrophils/100 WBC (Bld) 55.8 % Normal 43.0-75.0 [facility] Comment on above: Performed By: #### C BC ####[facility] [address] [place], [place] [address]Dr. Lolacuauhtemoc Aparicio Platelet mean volume (Bld) [Entitic vol] 10.1 fL Normal 9.5-13.5 [facility] Comment on above: Performed By: #### C BC ####[facility] [address] [place], [place] [address]Dr. Zuly Aparicio PLT 341 103/ul Normal 150-450 [facility] Comment on above: Performed By: #### C BC ####[facility] [address] [address]Dr. Zuly Aparicio RBC 5.58 106/ul Critically high 4.20-5.40 The [facility] Comment on above: Performed By: #### C BC ####[facility] [address] [place], [place] [address]WdNikia Aparicio WBC 5.3 103/ul Normal 4.0-11.0 [facility] Comment on above: Performed By: #### C BC ####[facility] [address] [place], [place] [address]Qw. [address] CT ABD/PELVIS WO CONon 04-19 [...] JOSEDANI RICKETTS Date: 2022-04-19 21:52 Normal [facility] ER URINE PROFILEon 2 Bilirubin Ql (U) Negative Normal NEGATIVE The [facility] Comment on above: Performed By: #### E RUR, PREGU ####[facility] [address] [place], [place] [address]Dr. Yilan Aparicio Clarity (U) CLEAR Normal CLEAR [facility] Comment on above: Performed By: #### E RUR, PREGU ####[facility] [address] [place], [place] [address]Dr. Yilan Aparicio Color (U) LT. YELLOW Normal YELLOW [facility] Comment on above: Performed By: #### E RUR, PREGU ####[facility] [address] [place], [place] [address]Dr. Yilan Aparicio ERUAHD A micrscopic examination will be performed if indicated. Normal [facility] Comment on above: Performed By: #### E RUR, PREGU ####[facility] [address] [place], [place] [address]Dr. Yilan Aparicio Glucose Ql (U) Negative Normal NEGATIVE [facility] Comment on above: Performed By: #### E RUR, PREGU ####[facility] [address] [place], [place] [address]Dr. Yilan Aparicio Hemoglobin Ql (U) Negative Normal NEGATIVE [facility] Comment on above: Performed By: #### E RUR, PREGU ####[facility] [address] [place], [place] [address]Dr. Yilan Aparicio Ketones Ql (U) Negative Normal NEGATIVE [facility] Comment on above: Performed By: #### E RUR, PREGU ####[facility] [address] [place], [place] [address]Dr. Yilan Aparicio LEUKOCYTES Negative Normal NEGATIVE [facility] Comment on above: Performed By: #### E RUR, PREGU ####[facility] [address] [place], [place] [address]Dr. Yilan Aparicio Nitrite Ql (U) Negative Normal NEGATIVE [facility] Comment on above: Performed By: #### E RUR, PREGU ####[facility] [address] [address]DrNikia Aparicio pH (U) 6.0 [pH] Normal 5-9 [facility] Comment on above: Performed By: #### E RUR, PREGU ####[facility] [address] [address]Dr. Zuly Aparicio SPEC GRAVITY 1.010 Normal 1.005-<=1.02 5 [facility] Comment on above: Performed By: #### E RUR, PREGU ####[facility] [address] [address]DrNikia Aparicio UA PROTEIN Negative Normal NEGATIVE/ TRACE [facility] Comment on above: Performed By: #### E RUR, PREGU ####[facility] [address] [place], [place] [address]Dr. Zuly Aparicio UR MICRO IND NOT INDICATED Normal [facility] Comment on above: Performed By: #### E RUR, PREGU ####[facility] [address] [place], [place] [address]DrNikia Aparicio Urobilinogen Qn (U) 0.2 {Isamar'U}/dL Normal 0.2 - 1. 0 [facility] Comment on above: Performed By: #### E RUR, PREGU ####[facility] [address] [place], [place] [address]DrNikia Aparicio LIPASEon 04-19-2022 Lipase [Catalytic activity/Vol] 161.0 U/L Normal 73.0-393.0 [facility] Comment on above: Performed By: #### L IPA, ANA #### [facility] [address] [address] [address] Zuly Aparicio URon 04-19-2022 , QUAL Negative Normal NEGATIVE [facility] Comment on above: Performed By: #### E RUR, PREGU ####[facility] [address] [place], [place] [address]Dr. Zuly Aparicio PROF 14(COMP METB)on 04-19- 022 Albumin [Mass/Vol] 3.9 g/dL Normal 3.4-5.0 [facility] Comment on above: Performed By: #### T SH #### [facility] [address] [place] [address] Dr. Zuly Aparicio Albumin/Globulin [Mass ratio] 1.1 {ratio} Normal [facility] Comment on above: Performed By: #### T SH #### [facility] [address] [place] [address] Dr. Zuly Aparicio ALP [Catalytic activity/Vol] 69 U/L Normal 46-116 [facility] Comment on above: Performed By: #### T SH #### [facility] [address] [place] [address] Dr. Zuly Aparicio ALT [Catalytic activity/Vol] 46 U/L Normal 14-59 [facility] Comment on above: Performed By: #### T SH #### [facility] [address] [place] [address] Dr. Zuly Aparicio Anion gap [Moles/Vol] 12.1 mmol/L Normal [facility] Comment on above: Performed By: #### T SH #### [facility] [address] [place] [address] Dr. Zuly Aparicio AST [Catalytic activity/Vol] 24 U/L Normal 15-37 [facility] Comment on above: Performed By: #### T SH #### [facility] [address] [place] [address] Dr. Zuly Aparicio Bilirubin [Mass/Vol] 0.5 mg/dL Normal 0.2-1.0 [facility] Comment on above: Performed By: #### T SH #### [facility] [address] [place] [address] Dr. Zuly Aparicio Calcium [Mass/Vol] 8.7 mg/dL Normal 8.5-10.1 [facility] Comment on above: Performed By: #### T SH #### [facility] [address] [place] [address] Dr. Zuly Aparicio Chloride [Moles/Vol] 106 mmol/L Normal 98-107 [facility] Comment on above: Performed By: #### T SH #### [facility] [address] [place] [address] Dr. Zuly Aparicio CO2 [Moles/Vol] 25.4 mmol/L Normal 21.0-32.0 [facility] Comment on above: Performed By: #### T SH #### [facility] [address] [address] [address] Zuly Aparicio Creatinine [Mass/Vol] 1.11 mg/dL Critically high 0.55-1.02 [facility] Comment on above: Performed By: #### T SH #### [facility] [address] [place] [address] Dr. Zuly Aparicio EGFR-AF GEORGIAN >60 Normal >=60 [facility] Comment on above: Performed By: #### T SH #### [facility] [address] [place] [address] Dr. Zuly Aparicio EGFR-NON AF GEORGIAN 57 mL/min/1.73m2 Critically low >=60 [facility] Comment on above: Performed By: #### T SH #### [facility] [address] [place] [address] Dr. Zuly Aparicio Globulin (S) [Mass/Vol] 3.5 g/dL Normal [facility] Comment on above: Performed By: #### T SH #### [facility] [address] [place] [address] Dr. Zuly Aparicio Glucose [Mass/Vol] 96 mg/dL Normal 74-106 [facility] Comment on above: Performed By: #### T SH #### [facility] [address] [place] [address] Dr. Zuly Aparicio Potassium [Moles/Vol] 3.5 mmol/L Normal 3.5-5.1 [facility] Comment on above: Performed By: #### T SH #### [facility] [address] [place] [address] Dr. Zuly Aparicio Protein [Mass/Vol] 7.4 g/dL Normal 6.4-8.2 [facility] Comment on above: Performed By: #### T SH #### [facility] [address] [place] [address] Dr. Zuly Aparicio Sodium [Moles/Vol] 140 mmol/L Normal 136-145 [facility] Comment on above: Performed By: #### T SH #### [facility] [address] [place] [address] Dr. Zuly Aparicio Urea nitrogen [Mass/Vol] 12.0 mg/dL Normal 7.0-18.0 [facility] Comment on above: Performed By: #### T SH #### [facility] [address] [place] [address] Dr. Zuly Aparicio Urea nitrogen/Creatinine [Mass ratio] 10.8 mg/mg Normal [facility] Comment on above: Performed By: #### T SH #### [facility] [address] [place] [address] Dr. Zuly Aparicio CBC AUTO DIFFon 12-20-2021 BASO # 0.0 103/ul Normal 0.0-0.1 [facility] Comment on above: Performed By: #### T SH #### [facility] [address] [place] [address] Dr. Zuly Aparicio Basophils/100 WBC (Bld) 0.1 % Critically low 0.2-2.0 [facility] Comment on above: Performed By: #### T SH #### [facility] [address] [place] [address] Dr. Zuly Aparicio EO # 0.1 103/ul Normal 0.0-0.7 [facility] Comment on above: Performed By: #### T SH #### [facility] [address] [place] [address] Dr. Zuly Aparicio Eosinophils/100 WBC (Bld) 1.1 % Normal 0.9-7.0 [facility] Comment on above: Performed By: #### T SH #### [facility] [address] [place] [address] Dr. Zuly Aparicio Erythrocyte distribution width (RBC) [Ratio] 15.9 % Critically high 11.0-15.0 [facility] Comment on above: Performed By: #### T SH #### [facility] [address] [place] [address] Dr. Zuly Aparicio Hematocrit (Bld) [Volume fraction] 35.2 % Critically low 36.0-48.0 [facility] Comment on above: Performed By: #### T SH #### [facility] [address] [place] [address] Dr. Zuly Aparicio Hemoglobin (Bld) [Mass/Vol] 10.9 g/dL Critically low 12.0-16.0 [facility] Comment on above: Performed By: #### T SH #### [facility] [address] [place] [address] Dr. Zuly Aparicio IG # 0.02 10e3/ul Normal 0.00-0.03 [facility] Comment on above: Performed By: #### T SH #### [facility] [address] [place] [address] Dr. Zuly Aparicio IG % 0.3 % Normal 0.0-0.5 [facility] Comment on above: Performed By: #### T SH #### [facility] [address] [place] [address] Dr. Zuly Aparicio LYMPH # 2.0 103/ul Normal 1.2-3.8 [facility] Comment on above: Performed By: #### T SH #### [facility] [address] [place] [address] Dr. Zuly Aparicio Lymphocytes/100 WBC (Bld) 28.0 % Normal 20.5-60.0 [facility] Comment on above: Performed By: #### T SH #### [facility] [address] [place] [address] Dr. Zuly Aparicio MANUAL DIFF REQ NO Normal [facility] Comment on above: Performed By: #### T SH #### [facility] [address] [place] [address] Dr. Zuly Aparicio MCH (RBC) [Entitic mass] 18.4 pg Critically low 26.7-34.0 [facility] Comment on above: Performed By: #### T SH #### [facility] [address] [place] [address] Dr. Zuly Aparicio MCHC (RBC) [Mass/Vol] 31.0 g/dL Normal 29.9-35.2 [facility] Comment on above: Performed By: #### T SH #### [facility] [address] [place] [address] Dr. Zuly Aparicio MCV (RBC) [Entitic vol] 59.3 fL Critically low 81.0-99.0 [facility] Comment on above: Performed By: #### T SH #### [facility] [address] [place] [address] Dr. Zuly Aparicio MONO # 0.4 103/ul Normal 0.3-0.8 [facility] Comment on above: Performed By: #### T SH #### [facility] [address] [place] [address] Dr. Zuly Aparicio Monocytes/100 WBC (Bld) 4.8 % Normal 1.7-12.0 [facility] Comment on above: Performed By: #### T SH #### [facility] [address] [place] [address] Dr. Zuly Aparicio NEUT # 4.7 103/ul Normal 1.4-6.5 [facility] Comment on above: Performed By: #### T SH #### [facility] [address] [place] [address] Dr. Zuly Aparicio Neutrophils/100 WBC (Bld) 65.7 % Normal 43.0-75.0 [facility] Comment on above: Performed By: #### T SH #### [facility] [address] [place] [address] Dr. Zuly Aparicio Platelet mean volume (Bld) [Entitic vol] 10.2 fL Normal 9.5-13.5 [facility] Comment on above: Performed By: #### T SH #### [facility] [address] [place] [address] Dr. Zuly Aparicio PLT 338 103/ul Normal 150-450 [facility] Comment on above: Performed By: #### T SH #### [facility] [address] [place], [place] [address] Dr. Zuly Aparicio RBC 5.94 106/ul Critically high 4.20-5.40 [facility] Comment on above: Performed By: #### T SH #### [facility] [address] [place], [place] [address] Dr. Zuly Aparicio WBC 7.2 103/ul Normal 4.0-11.0 [facility] Comment on above: Performed By: #### T SH #### [facility] [address] [place], [place] [address] HEAD WO CONon [...] LEROY PRETTY Date: 2021-12-20 21:04 Normal [facility] CULTURE URINEon 12-20-2021 CULTURE URINE Culture Observations : LIGHT GROWTH OF MIXED GENITAL JI. NO POTENTIAL PATHOGENS SEEN. Normal [facility] Comment on above: Performed By: #### U RCX ####[facility] [address] [place] [address]Dr. Zuly Aparicio ER URINE PROFILEon 2 Bilirubin Ql (U) Negative Normal NEGATIVE The [facility] Comment on above: Performed By: #### TASHA ASHERICRO #### [facility] [address] [place] [address] [address] Zuly Aparicio Clarity (U) CLEAR Normal CLEAR [facility] Comment on above: Performed By: #### Roshan HOOPER UMICRO #### [facility] [address] [place] [address] Dr. Zuly Aparicio Color (U) LT. YELLOW Normal YELLOW [facility] Comment on above: Performed By: #### TASHA ASHERICRO #### [facility] [address] [place] [address] Dr. Zuly JUDD A micrscopic examination will be performed if indicated. Normal [facility] Comment on above: Performed By: #### TASHA ASHERICRO #### [facility] [address] [place] [address] Dr. Zuly Aparicio Glucose Ql (U) Negative Normal NEGATIVE [facility] Comment on above: Performed By: #### TASHA ASHERICRO #### [facility] [address] [place] [address] Dr. Zuly pAaricio Hemoglobin Ql (U) LARGE Abnormal NEGATIVE [facility] Comment on above: Performed By: #### Roshan HOOPER UMICRO #### [facility] [address] [place] [address] [address] Zuly Aparicio Ketones Ql (U) Negative Normal NEGATIVE [facility] Comment on above: Performed By: #### Roshan HOOPER UMICRO #### [facility] [address] [place] [address] Dr. Zuly Aparicio LEUKOCYTES Negative Normal NEGATIVE [facility] Comment on above: Performed By: #### Roshan HOOPER UMICRO #### [facility] [address] [place] [address] Dr. Zuly Aparicio Nitrite Ql (U) Negative Normal NEGATIVE [facility] Comment on above: Performed By: #### CHAYITO ASHERRO #### [facility] [address] [place] [address] Dr. Zuly Aparicio pH (U) 6.0 [pH] Normal 5-9 [facility] Comment on above: Performed By: #### CHAYITO ASHERRO #### [facility] [address] [place] [address] Dr. Zuly Aparicio SPEC GRAVITY 1.015 Normal 1.005-<=1.02 5 [facility] Comment on above: Performed By: #### CHAYITO ASHERRO #### [facility] [address] [place] [address] Dr. Zuly Aparicio UA PROTEIN Negative Normal NEGATIVE/ TRACE [facility] Comment on above: Performed By: #### CHAYITO ASHERRO #### [facility] [address] [place] [address] Dr. Zuly Aparicio UR MICRO IND INDICATED Normal [facility] Comment on above: Performed By: #### Roshan HOOPER FAVIOLARO #### [facility] [address] [place] [address] Dr. Zuly Aparicio Urobilinogen Qn (U) 1.0 {Isamar'U}/dL Normal 0.2 - 1. 0 [facility] Comment on above: Performed By: #### Roshan HOOPER FAVIOLARO #### [facility] [address] [place] [address] Dr. Zuly Aparicio PROF 14(COMP METB)on 022 Albumin [Mass/Vol] 4.1 g/dL Normal 3.4-5.0 [facility] Comment on above: Performed By: #### T SH #### [facility] [address] [place] [address] Dr. Zuly Aparicio Albumin/Globulin [Mass ratio] 1.1 {ratio} Normal [facility] Comment on above: Performed By: #### T SH #### [facility] [address] [place] [address] Dr. Zuly Aparicio ALP [Catalytic activity/Vol] 60 U/L Normal 46-116 [facility] Comment on above: Performed By: #### T SH #### [facility] [address] [place] [address] [address] Zuly Aparicio ALT [Catalytic activity/Vol] 52 U/L Normal 14-59 [facility] Comment on above: Performed By: #### T SH #### [facility] [address] [place] [address] Dr. Zuly Aparicio Anion gap [Moles/Vol] 11.4 mmol/L Normal [facility] Comment on above: Performed By: #### T SH #### [facility] [address] [place] [address] Dr. Zuly Aparicio AST [Catalytic activity/Vol] 25 U/L Normal 15-37 [facility] Comment on above: Performed By: #### T SH #### [facility] [address] [place] [address] Dr. Zuly Aparicio Bilirubin [Mass/Vol] 0.4 mg/dL Normal 0.2-1.0 [facility] Comment on above: Performed By: #### T SH #### [facility] [address] [place] [address] Dr. Zuly Aparicio Calcium [Mass/Vol] 8.7 mg/dL Normal 8.5-10.1 [facility] Comment on above: Performed By: #### T SH #### [facility] [address] [place] [address] Dr. Zuly Aparicio Chloride [Moles/Vol] 105 mmol/L Normal 98-107 [facility] Comment on above: Performed By: #### T SH #### [facility] [address] [place] [address] Dr. Zuly Aparicio CO2 [Moles/Vol] 26.3 mmol/L Normal 21.0-32.0 [facility] Comment on above: Performed By: #### T SH #### [facility] [address] [place] [address] Dr. Zuly Aparicio Creatinine [Mass/Vol] 1.06 mg/dL Critically high 0.55-1.02 [facility] Comment on above: Performed By: #### T SH #### [facility] [address] [place] [address] [address] Zuly Aparicio EGFR-AF GEORGIAN >60 Normal >=60 [facility] Comment on above: Performed By: #### T SH #### [facility] [address] [place] [address] [address] Zuly Aparicio EGFR-NON AF GEORGIAN =60 Normal >=60 [facility] Comment on above: Performed By: #### T SH #### [facility] [address] [place] [address] [address] Zuly Aparicio Globulin (S) [Mass/Vol] 3.6 g/dL Normal [facility] Comment on above: Performed By: #### T SH #### [facility] [address] [place] [address] Dr. Zuly Aparicio Glucose [Mass/Vol] 99 mg/dL Normal 74-106 [facility] Comment on above: Performed By: #### T SH #### [facility] [address] [place] [address] [address] Zuly Aparicio Potassium [Moles/Vol] 3.7 mmol/L Normal 3.5-5.1 [facility] Comment on above: Performed By: #### T SH #### [facility] [address] [place] [address] Dr. Zuly Aparicio Protein [Mass/Vol] 7.7 g/dL Normal 6.4-8.2 [facility] Comment on above: Performed By: #### T SH #### [facility] [address] [place] [address] Dr. Zuly Aparicio Sodium [Moles/Vol] 139 mmol/L Normal 136-145 [facility] Comment on above: Performed By: #### T SH #### [facility] [address] [place] [address] Dr. Zuly Aparicio Urea nitrogen [Mass/Vol] 17.0 mg/dL Normal 7.0-18.0 [facility] Comment on above: Performed By: #### T SH #### [facility] [address] [place] [address] Dr. Zuly Aparicio Urea nitrogen/Creatinine [Mass ratio] 16.0 mg/mg Normal [facility] Comment on above: Performed By: #### T SH #### [facility] [address] [place] [address] Dr. Zuly Aparicio TSHon 12-20-2021 TSH 3.279 uIU/mL Normal 0.358-3.740 [facility] Comment on above: Performed By: #### T SH #### [facility] [address] [place] [address] Dr. Zuly Aparicio URINE MICROSCOPIC ONLYon BACTERIA SMALL Abnormal NONE SEEN [facility] Comment on above: Performed By: #### Roshan HOOPER UMICRO #### [facility] [address] [place] [address] Dr. Zuly Aparicio Bacteria identified Cx Nom (U) INDICATED Normal [facility] Comment on above: Performed By: #### Roshan HOOPER UMICRO #### [facility] [address] [place] [address] Dr. Zuly Aparicio CAST NONE SEEN Normal NONE SEEN [facility] Comment on above: Performed By: #### Roshan HOOPER UMICRO #### [facility] [address] [place] [address] Dr. Zuly Aparicio Crystals LM Nom (Urine sed) NONE SEEN Normal NONE SEEN [facility] Comment on above: Performed By: #### Roshan HOOPER UMICRO #### [facility] [address] [place] [address] Dr. Zuly Aparicio Epithelial cells LM Ql (Urine sed) MANY Abnormal NONE SEEN /RARE [facility] Comment on above: Performed By: #### Roshan HOOPER UMICRO #### [facility] [address] [place] [address] Dr. Zuly Aparicio MUCOUS NONE SEEN Normal NONE SEEN [facility] Comment on above: Performed By: #### Roshan HOOPER UMICRO #### [facility] [address] [place] [address] Dr. Zuly Aparicio RBC 0-2 Normal 0-2 [facility] Comment on above: Performed By: #### JEFERSON ASHER #### [facility] [address] [place], [place] [address] Dr. Zuly Aparicio WBC 2-5 Abnormal NONE SEEN [facility] Comment on above: Performed By: #### JEFERSON ASHER #### [facility] [address] [place], [place] [address] Dr. Zuly Aparicio XR CHEST 1 Von [...] LUDY GARCIA Date: 2021-12-20 21:21 Normal [facility] Coding Summary.on 12-13-2021 Coding Summary. CD:[id number] G h0bWw+PGhlYWQ+VA6MTWW cT32elYZwpF5JO2dXCN8T QXYJAVLEDW9VRN5rwYQ2R WrnY8RkigBx VctsoOSfMN68AIs8EPX1t EwyBGjgdQ8seYZrX3r9Zt TgIR88zG90TZfrOPVtKwB 3LjZpbjsgbWFy Q0zaVfZmnXKfDyx+PHRhY mxlIHdpZHRoPScxMDAlJy GzjEbyWY3xLb5hQOSvHMX vbGxhcHNlOiBj v0fnWSFfNNsfRC2alQfrU 1NmuPZ4WEBbg2i4Fn12xM I+GKJwLFM7uBbrMVpvv28 4XkFkx1biCXS4 xUCqMBshEII7U78po1X8E GUxXBXtLNZ6hZQ0lQ1raS ehcvonJ5HawBAtVnR8IGP 6bADqrP4lqVmk cwuurB7kHst+H09XZY7GY WZCPY4ETqq9H8AgGaytuU I+PD23RDLjIC80jBNfsIM on9rycRv3VjNe XOAdZJV0wWjtXOixf7IdI PVeC65wiEJup6F2HAWjbJ wurMYxBkEifHM6tB2oNKr luwwbz1gwhlsl Yvmzl2bzou52cC09D88aY YntXRNbTJO3ZNYrFFTkbD qhmf3osP0bYv5+VHdjt7i is2fpwEj3PiFk OAZytqLqiSexFFL3q9RcS l57Q2FuzQfgz7ZySel8lv 63oVBig5G9uSZ2FEhrYXM umK6tJAkxUyY4 BTXhDbEqbV93nWDiZHioB r7guQfjtXpjJR5sPSDxdo fpLVZrfZ3fQOFigHIkjRx pQH9wERMnfcfz o690ZgXxZRD7VWGbcWOoJ 1CdmA2gYfXjPLHyPPYcK0 KjrZJlCYbpO817UBvkOmO 0RSFjmfLwE3Af XXHwqMdpXlM8t5W1Kx2Rb 4FwiljxHXD5WFqxAVM2Dj BzCyPlZqR0R6PnEye3YKP thYufCO5lM8Id NJKijbfhlqccpOU0EGJxF LEkpR82eZOrHSbpOj1ga0 W0u156RGZxKLVutC62Vz2 udDogMTBwdCBU aH6rscgzf5rmzpcwVnGiS EZzRBs3DRr5YHMidNtyCb UyZNS4BbA4VUB8jCYsoT6 oaWamkojopL4d Oyc+U97jkJ0cXNK7GOM6m npcOUKlqpLmPH41RR08V6 RyPjwvdGFibGU+PGRpdiB suEewCK1aLeGe a4ijt8FkXBmgL7NiOHJsV XrmPtl0SNYfNGV7pVH9kS 9sEWMuYNdzb4P5tJH9V6D hnfXbas2lq1sf RCBsXGhdW99txVKng4B7C ZNosGB7GXWksRryHbDxfU 93Oyc+XJIrbUpks3NdPqa ko3iky9nqdLk7 EbCfQLNxvrOdqAkgSQE3f 4NkQh26J85jWYcrIJDzFQ RjUGWcNLZpdNfkjh7ozQ1 wIi8+PGNvbCB3 nVP1bP9eIXKrEyX6MFepU 082ZmNjrBIdAoooc9hpd0 fjnWd0RoUpDEIshmUgbWs gLEU8w6DmLm84 F15oIKgdTEYwLCIzCASvX KTjkWxjmq0fcB9vFr1+PC 1ow2dfmi23yI99eKF+PHR pTGJ6rLwlCWkr EWLfvG2zREyfXwT1AEPeA kVnxI01hMFfKWneGh8smH krcHxyTB1rEITrmacim58 1WqNda7qwMUSv zRDhAGfcGPE3K24vn0Y3O SLrLLOhFXD1bSR3yF7koE lnbjogbGVmdDsgdmVydGl iLNjrVUflA271 IHRvcDsnPlBhdGllbnQgT fJvKDw1Z1VmMpp7WTZfvR fqPC4mfBAzXNdkHw1xrVj hlUnfKE7qCHZz lztub830GqPch8rsGIZow FDqBSpzEWO3A28ng2T6RF SfNHXnVRT1lUP6sW4pvZl nbjogbGVmdDsg siBimXakFXciGKhdS127Z HRvcDsnPkJpcnRoIERhdG C7BJ51HK17wWUuk6H7sKN 4Y5UlEWVvcnod rogrjYD1JWLmATDgkI49R u2hmYqlXi2wAOKvZSD2RJ YxaZFsR7FjdH7wUcVuXWM nQZFjJ5TxfVMr MRvcT083LIjiZpK8HSQbw uTeT8HcQCTehHizAjV5s2 E1Xb3GQ9W2WL82RU63dNJ pl2X6pKM9X5Ja FOFlemoqysbgmDR4EAEtL MAedZ56Rr1qxVycIy3cKR GiVWR7QJNiaPYkG3NjdN7 yOiAjMDAwMDAw P8VrvJCtCAbfR173RSlqT xC6OCHohsFyV0FzEJDgdM aiZiH3h9A2Wd7WIDj4DF0 8RW94zQVrf2B4 pCQ0S4WsAYBmnfpgthglq BO9DQGkCCCyhE78Za1ehH ikTl2lFWMbSOZ1YRIotZJ wQ8TtzQ3kKnZu AVEvGPZkX5JrvWKfJEulH 431DNjcYnY3QFBkjbIyO8 YnWXTblHhhLeC1o4T1Ul8 DEXYjAF69HEZ9 sCF0QA79DK14W6RsCilvv GFibGU+PHRhYmxlIHdpZH RoPScxMDAlJyBzdHlsZT0 uFw0fZYGnNQKv gIwgePRqQoZvm8csOXDkH WaoLW4omWdfR4TiwMR1NX Dfq1e7Bl14K59wP4JlpNW +ZWHlzBG1nJT9 zY7wBrYvKgV2KVmsJ664Q dUzoKFjAyiby3ion6zxvC r8VeC4GLXoziHdoElyOQI 1b1OpHn87X38a IHdpZHRoPSIxNSUiIHZhb Bsdil0hoR1vDq6+PGNvbC C1wZY5yC4vHuDsVkM3WAl oL122YjDqhUNd Kcofd3qdn0nnlTy6AiNgR RWyvhGznVwgHWZ9g9NzMw 84A9QjdUqwy5XsGbq9cl3 5fZKyl2G0mJD2 J7JyRSBixrfocFVdbMbeF O3bEICuzngjQTKqhR3jPV KvR6h8UgZkHoB4GBgcA6A kgiG4GOCdkSZp KHjcYMK9X70bq8O5OKHfY WIuBPL8tMD3vB3khDwwva ogbGVmdDsgdmVydGljYWw bOUwpP027JXAw sGtcNHHcxZ6zLFSrjROji KthBM6fEQVvikacZqcCTw RTRVksIENIRUxTRVkgUjw vdGQ+PHRkIHN0 nLydXEliJPUuqQ6eUYReA 3w1LfToAmX7BDgdI1MvQQ EclhbxBn40oG7qIbKvSuI 1CZjaP9QctwX1 BVLhyQFsMNvuMKL7X33qd 5R5IILsKSOvRFM5iOX8jM 1hbGlnbjogbGVmdDsgdmV ydGljYWwtYWxp A823DPSexKwcAnMwUsQ3G yV3YRQ5B1QsHgd2JKRwwI bcPS0ohMHrYLjqJp3bnBa fiYqjDA3iPDEl qmxyZILqjK1nRMZpdRUhe CpeCP8yMUGlhnwvt034Km XnYYW5FORxrCXoL0ZjcF2 yOiAjMDAwMDAw B8McjOWdZPapS922OLrnV nW8KMOcraSsW5TmNBFfeX cnZgS1p4N0Br1kHxXREDV yczwvdGQ+PHRk OJS8iJmrPEydAUNxiB9cW UZpK6q5HwIbBgK6IJdpM4 YcBYWvltvmSh21rW6oQnR aTsZ1PLxdV0Mu oeJ4RDElkIUwWJvtDSN8B 83iu5B4VJKkCSRiTYR9vF U4eM3ltScxktayqLNuzGn gdmVydGljYWwt BRgaY527UNIukPwbMiOyp WFsZTwvdGQ+CGCfEZJ5mL zpPPkeIFEnvO0oXACdR7y 5RoBqRxH9NSjv S3EtZNQifmlfUj87gX6gG pHsBfY6HEvtS2DhqpY4EY AugCZrHKjvTAN3R69ou7X 8QYYcHONkTCZ1 eHC6oS9rtAwugnbqlQCav DsgdmVydGljYWwtYWxpZ2 44LQYtyUyfEtYaPPNvTV0 jeTwvdGQ+PC90 nb14R4YtUegyJks7PWIsP PO7cOT2mZ2eZXEvAGjbs3 E5uVJ6L6OafwNrmg7in9a aWBQuWBamQ62b hLYtp0C4DTXuqLU1SEOui ZxnCeBsfM12Gxm+PGNvbG xgn6IkIugzb4rvr5vxoQc 9IjMwJSIgdmFs vSxuPON0s6YzJe40F08fW HdpZHRoPSIzMCUiIHZhbG kusu8jlR3nYz7+PGNvbCB 2eDL5iW8hAiCm IcK6XNvbU931UuLtdDUdW zlzd8ebq0cqhFm5AzItHC AgwwRkmDpuOXG4d8PiNh6 2L2PtxYnpj0Dq Vvf6ur19yBIzu4S9eMY8D 3BhZGRpbmctbGVmdDogMC 2cONBvizrcNYCmlO5iAQH qS1w4WsWlKdF5 CUwfS3QvkxQ2YKBpvRJmJ LFfpVIYyE8wpderl3iynz llEfNkMBInUCy0LLl7BPZ saWduOiBsZWZ0 MbD6HHX9oTLdeR5ajKepn mmadM8yRzq+LQn3r2txjX TjBG9ujLA5AL58SZ41uYN hn6Q1eWJ9Z3Lb EVUygecngrawrIA8LEUjP VOtxH96Rz4hqQjySu1aQC ClRGT5OQBrfLAcJ8TbhD3 yOiAjMDAwMDAw M4GbbIZlRFloO137HSoaK jH0KCOgvcTyO6CsQCRgaC ceFkX4z6P6Yz9DON93VU8 2II35eUZjt4E3 uJX7J3HhQNWtkfqmwjwnz QF2MJKgLXWdmH09Ed0vsA lcRz9zWSLeSYI0CBQfqRR zM3XucM1jEeYj MJHcTNIcV1GerMKuOQlsS 287KJnqJqU1FEIeewHjD0 GlZGQmyXqdNtH2j5C0Pb8 JRf94JQ05FO94 qZRuz3D2aAR0A5NlCDXof ekldhtlzQV5VDJjDZJkwO 98Ex8lpQzkXt4dMJDmEYP 9KWPstSYgM1Gu xV8lYsGuRBXoUWPjV8Ktu QQrRDirH046MOhbJuK7CX FxilKpC3CeVKAilOvrTxX 0j6T4Re9WLWne xhq4R2VyNvzlxBN+PC90Y ZHzZB08lYFwnKMav8ygtZ a6ZdDnQTXbYQK4gAynOZp uu5GgBFRcX94y bGFw (more content not included)... Normal [facility] Path. Reviewon 12-11-2021 Path Review Microcytic and hypochromic anemia. Clinical correlation and iron studies are recommended to determine etiology as clinically indicated. Invalid Interpretation Code [facility] Comment on above: Order Comment: Order Added by Discern Expert. Performed By: #### 2 [id number], [id number], [id number], [id number], [id number], [id number] #### [facility] [address] [place] [address] Auto Diffon 12-10-2021 Basophils/100 WBC (Bld) 0.2 % Normal 0.0-2.0 [facility] Comment on above: Order Comment: Order Added by Discern Expert. Performed By: #### 2 [id number], [id number], [id number], [id number], [id number] #### [facility] [address] [place] [id number] Basophils/Leukocytes Auto (Bld) [Pure # fraction] 0.0 E9/L Normal 0.0-0.2 [facility] Comment on above: Order Comment: Order Added by Discern Expert. Performed By: #### 2 [id number], [id number], [id number], [id number], [id number], [id number], [id number] #### [facility] [address] [place] [address] Eosinophils/100 WBC (Bld) 1.3 % Normal 0.0-8.0 [facility] Comment on above: Order Comment: Order Added by Discern Expert. Performed By: #### 2 [id number], [id number], [id number], [id number], [id number], [id number], [id number] #### [facility] [address] [place] [address]402 Eosinophils/Leukocyte s Auto (Bld) [Pure # fraction] 0.1 E9/L Normal 0.0-0.5 [facility] Comment on above: Order Comment: Order Added by Discern Expert. Performed By: #### 2 [id number], [id number], [id number], [id number], [id number], [id number], [id number] #### [facility] [address] [place] [address]198 Lymphocytes/100 WBC (Bld) 30.3 % Normal 14.0-50.0 [facility] Comment on above: Order Comment: Order Added by Discern Expert. Performed By: #### 2 [id number], [id number], [id number], [id number], [id number], [id number], [id number] #### [facility] [address] [place] [address] Lymphocytes/Leukocyte s Auto (Bld) [Pure # fraction] 2.1 E9/L Normal 1.0-4.0 [facility] Comment on above: Order Comment: Order Added by Discern Expert. Performed By: #### 2 [id number], [id number], 89918270, 8132389, 68622643, 79203958, 1208116 #### [facility] [address] [place] [address] Monocytes/100 WBC (Bld) 6.2 % Normal 4.0-14.0 [facility] Comment on above: Order Comment: Order Added by Discern Expert. Performed By: #### 2 645292, 05815648, 43100231, 8624355, 63427121, 59032098, 6102182 #### [facility] [address] [place] [address] Monocytes/Leukocytes Auto (Bld) [Pure # fraction] 0.4 E9/L Normal 0.2-1.0 [facility] Comment on above: Order Comment: Order Added by Discern Expert. Performed By: #### 2 027980, [id number], 88604741, 2972330, 83964320, 99616793, 4670816 #### [facility] [address] [place] [address] Neutrophils/100 WBC (Bld) 62.0 % Normal 36.0-75.0 [facility] Comment on above: Order Comment: Order Added by Discern Expert. Performed By: #### 2 793791, 84888157, 14428897, 3533908, 53047336, 23422511, 4918526 #### [facility] [address] [place] [address] Neutrophils/Leukocyte s Auto (Bld) [Pure # fraction] 4.3 E9/L Normal 2.0-7.5 [facility] Comment on above: Order Comment: Order Added by Discern Expert. Performed By: #### 2 539332, 89498322, 61110719, 8312013, 91007549, 93010068, 3584026 #### [facility] [address] [place] [address] BMPon 12-10-2021 Creatinine [Mass/Vol] 1.0 mg/dL Normal 0.5-1.3 [facility] Comment on above: Performed By: #### 2 276213, 86675268, 12327179, 1485118, 38053625, 14573046, 7258439 #### [facility] [address] [place] [address] Urea nitrogen [Mass/Vol] 17 mg/dL Normal 5-21 [facility] Comment on above: Performed By: #### 2 861497, [id number], 44941178, 2180990, 04079878, 11932252, 2739133 #### [facility] [address] [place] [address] Urea nitrogen/Creatinine [Mass ratio] 17 No Units Normal 10-20 [facility] Comment on above: Performed By: #### 2 958665, 80007253, 74806693, 2225591, 21886849, 88910184, 5136491 #### [facility] [address] [place] [address] Anion gap [Moles/Vol] 13 mmol/L Normal 6-16 [facility] Comment on above: Performed By: #### 2 115096, 98213584, 02097623, 3290763, 78886598, 25803893, 0846479 #### [facility] [address] [place] [address] Calcium [Mass/Vol] 9.2 mg/dL Normal 8.9-11.1 [facility] Comment on above: Performed By: #### 2 020141, 23011440, 89517012, 8717363, 00520345, 51468430, 1905180 #### [facility] [address] [place] [address] Chloride [Moles/Vol] 106 mmol/L Normal 101-111 [facility] Comment on above: Performed By: #### 2 577079, 05717323, 70515628, 6331361, 02104293, 19710914, 6683455 #### [facility] [address] [place] [address] CO2 [Moles/Vol] 22 mmol/L Normal 21-31 [facility] Comment on above: Performed By: #### 2 908975, 41483548, 02905462, 0987464, 82220603, 93103826, 4679704 #### [facility] [address] [place] [address] Glucose [Mass/Vol] 96 mg/dL Normal 55-199 [facility] Comment on above: Result Comment: If t his glucose result represents a fasting glucose, interpretation should refer to the following reference range: 55-99 mg/dL Performed By: #### 2 747016, 93960895, 82237676, 5242646, 50326233, 11265513, 2569641 #### [facility] [address] [place] [address] Potassium [Moles/Vol] 4.2 mmol/L Normal 3.5-5.3 [facility] Comment on above: Performed By: #### 2 235009, 57755769, 97433654, 5705032, 53136458, 13133662, 7673140 #### [facility] [address] [place] [address] Sodium [Moles/Vol] 137 mmol/L Normal 135-145 [facility] Comment on above: Performed By: #### 2 528880, 94160104, 41392123, 8024934, 45002871, 05172444, 5076110 #### [facility] [address] [place] [address] CBC w/ Auto Diffon 2 Erythrocyte distribution width (RBC) [Ratio] 15.4 % High 10.9-14.2 [facility] Comment on above: Performed By: #### 2 995710, 20623744, 92013335, 0257033, 84048105, 67625414, 1866226 #### [facility] [address] [place] [address] Hematocrit (Bld) [Volume fraction] 34.9 % Normal 34.0-46.0 [facility] Comment on above: Performed By: #### 2 580626, 71836652, 53804722, 6261689, 08127690, 76180491, 5327407 #### [facility] [address] [place] [address] Hemoglobin (Bld) [Mass/Vol] 11.0 g/dL Low 12.0-16.0 [facility] Comment on above: Performed By: #### 2 265809, 90223223, 95415509, 6648140, 13834727, 57469742, 5614016 #### [facility] [address] [place] [address] MCH (RBC) [Entitic mass] 17.7 pg Low 27.0-34.0 [facility] Comment on above: Performed By: #### 2 548078, 59048915, 81117418, 9188765, 88193527, 64814751, 3736004 #### [facility] [address] [place] [id number] MCHC (RBC) [Mass/Vol] 31.6 g/dL Normal 31.4-36.0 [facility] Comment on above: Performed By: #### 2 149012, 56615680, 79321552, 2556697, 50786782, 61571536, 3125839 #### [facility] [address] [place] [address] MCV (RBC) [Entitic vol] 56.1 fL Low 80.0-100.0 [facility] Comment on above: Performed By: #### 2 263630, 07392701, 63573470, 5763897, 35636924, 01031466, 2894488 #### [facility] [address] [place] [address] Platelet mean volume (Bld) [Entitic vol] 8.9 fL Normal 6.4-10.8 [facility] Comment on above: Performed By: #### 2 110403, 96309223, 27799461, 5087198, 14798230, 94167476, 5454506 #### [facility] [address] [place] [address] Platelets (Bld) [#/Vol] 281.0 E9/L Normal 150.0-500.0 [facility] Comment on above: Performed By: #### 2 197820, 04683066, 36544432, 1602980, 24978148, 29048410, 5760001 #### [facility] [address] [place] [address] RBC (Bld) [#/Vol] 6.2 E12/L High 4.3-5.9 [facility] Comment on above: Performed By: #### 2 181935, 89540458, 66319522, 0612990, 95214578, 05007564, 2146568 #### [facility] [address] [place] [address] WBC corrected for nucl RBC Auto (Bld) [#/Vol] 6.9 E9/L Normal 4.0-11.0 [facility] Comment on above: Performed By: #### 2 399864, 80852985, 91257803, 0493897, 29937446, 51595525, 8128026 #### [facility] [address] [place] [address] CHEMISTRYOrdered By: SYSTEM SYSTEM on 12-10-2021 Anion [...] rate/Area] mL/min/1.73 m2 Normal >=59mL/min/1 .73 m2 [facility] Chem S GFR/1.73 sq M.predicted among non-blacks MDRD (S/P/Bld) [Vol rate/Area] mL/min/1.73 m2 Normal >=59mL/min/1 .73 m2 [facility] Chem S Glucose [Mass/Vol] 96 mg/dL Normal 55 - 199 mg/dL [facility] Remisol Potassium [Moles/Vol] 4.2 mmol/L Normal 3.5 - 5.3 mmol/L [facility] Remisol Sodium [Moles/Vol] 137 mmol/L Normal 135 - 145 mmol/L [facility] Remisol Troponin I.cardiac [Mass/Vol] pg/mL Low 10.10 - 27.10 pg/mL [facility] Remisol Urea nitrogen [Mass/Vol] 17 mg/dL Normal 5 - 21 mg/dL [facility] Remisol Urea nitrogen/Creatinine [Mass ratio] 17 mg/mg Normal 10 - 20 [facility] Remisol Consent for Treatmenton 11-24 Consent for Treatment [id number]:127 Normal [facility] Discharge Instructionson Discharge Instructions [id number]:127 Normal [facility] ED Clinical Summaryon 2021 ED Clinical Summary [address] [address] ED Clinical Summary Person Information Name: TORIE JOHNSTON [facility] Age: 31 Years : 1990 Sex: Female Language: Turkmen PCP: YAMILE GARCIA CNP Marital Status: Visit [...] 03:49:35 12/10/2021 03:49:35 12/10/2021 03:49:35 ADDRESS: [address] [facility] [id number] [facility] DOC NOTES: MEDICAL INFORMATION: Prescriptions Given: [...] With: Address: When: YAMILE GARCIA [address] [facility], [place], [place] [phone] Business (1) In 3 days 12/13/2021 Comments: Return to the emergency room if your vertigo recurs or any new symptoms DIAGNOSIS: 1:Vertigo; 2:Leg pain Normal [facility] ED Note-Nursingon 12-10-2021 ED Note-Nursing pt given d/c instructions and educated on importance of follow up. pt educated on new medications. pt verbalized understanding of instructions and readiness for d/c. pt walked self ambulatory to waiting room in stable condition Normal [facility] ED Note-Physicianon 12-11-19 ED Note-Physician [...] meclizine 12.5 mg Tab, 25 mg, Oral VO3048 [F], 1000 mL, IV Phenergan 25 mg/mL Injection, 12.5 mg, IV Push Disposition Plan Patient Discharge Condition Stable, improved Discharge Disposition Discharged home Discharge Prescription List Prescriptions meclizine 25 mg Tab, 25 mg= 1 tab(s), Oral, TID Zofran ODT 4 mg Tab-Dis, 4 mg= 1 tab(s), Oral, q6hr, PRN Follow-up With When Contact Information YAMILE GARCIA In 3 days 12/13/2021 EDT [address] [place] [address] [phone] Business (1) Additional Instructions: Return to the [...] 00:31:00) Hct: (more content not included)... Normal [facility] Comment on above: Result Comment: [...] you feel dizzy. General instructions ? Take fchg-apz-wpnhjlk and prescription medicines only as told by [...] 02/20/2006 Document Revised: 04/06/2019 Document Reviewed: 04/06/2019 [employer] Patient Education ? 2019 [employer]. Normal [facility] ED Patient Summaryon 022 ED Patient Summary [place] [address] Patient Discharge Instructions Person Information Name: TORIE JOHNSTON Age: 31 Years Arrival Date: 12/09/2021 22:22:45 Discharge Diagnosis: 1:Vertigo; 2:Leg pain Primary Care Physician: YAMILE GARCIA CNP Provider Information Primary Provider: Miguel Kamara M.D. Advanced Personal Security Specialist:None The exam and treatment you received in the Emergency Department were for an urgent problem and are not intended as complete care. It is important that you follow up with a doctor, nurse practitioner, or physician?s learning and development assistant for ongoing care. If your symptoms [...] Address: When: YAMILE GARCIA [address] [facility], [place], [place] [phone] Business (1) In 3 days 12/13/2021 Comments: [...] opioids can be used to help relieve atshlelh-yp-ggbyjn pain and are often prescribed following a [...] be struggling with addiction, tell your health career development specialist and ask f (more content not included)... Normal [facility] HEMATOLOGYOrdered By: Serg Goodson on [...] Ql (Bld) Present (12/10/21 12:31 AM) Normal [facility] HemeManSS Polychromasia LM Ql (Bld) Present (12/10/21 12:31 AM) Normal [facility] HemeManSS RBC (Bld) [#/Vol] 6.2 E12/L High 4.3 - 5.9 E12/L [facility] HemeAutoSS Teardrop Cell Present (12/10/21 12:31 AM) Normal [facility] HemeManSS WBC corrected for nucl RBC Auto [...] 4.3 E9/L Normal 2.0 - 7.5 E9/L [facility] HemeAutoSS Morphon 12-10-2021 Anisocytosis Ql (Bld) Present Normal [facility] Comment on above: Order Comment: Order Added by Discern Expert. Performed By: #### 2 720809, 81114372, 26813965, 4986730, 60201910, 04985615, 2891821 #### [facility] [address] [place] [address] Elliptocytes LM Ql (Bld) Present Normal [facility] Comment on above: Order Comment: Order Added by Discern Expert. Performed By: #### 2 006969, 90784969, 01101093, 1661745, 08600456, 79213789, 2615815 #### [facility] [address] [place] [address] Hypochromia Auto Ql (Bld) Present Normal [facility] Comment on above: Order Comment: Order Added by Discern Expert. Performed By: #### 2 037144, 44023235, 17736300, 3212132, 29254103, 58746361, 1145361 #### [facility] [address] [place] [address] Morphology Rey (Bld) [Interp] See Morphology Normal [facility] Comment on above: Order Comment: Order Added by Discern Expert. Performed By: #### 2 836110, 11018645, 42141980, 3082802, 18912131, 74734026, 2386383 #### [facility] [address] [place] [address] Poikilocytosis Auto Ql (Bld) Present Normal [facility] Comment on above: Order Comment: Order Added by Discern Expert. Performed By: #### 2 115280, 01307262, 54898155, 0464743, 85011652, 54366518, 1372170 #### [facility] [address] [place] [address] Polychromasia LM Ql (Bld) Present Normal [facility] Comment on above: Order Comment: Order Added by Discern Expert. Performed By: #### 2 242533, 32591768, 19359138, 7320007, 25719989, 93435978, 6469550 #### [facility] [address] [place] [address] Teardrop Cell Present Normal [facility] Comment on above: Order Comment: Order Added by Discern Expert. Performed By: #### 2 183180, 44483063, 45902290, 5547305, 03847868, 98692933, 0939821 #### [facility] [address] [place] [address] SEROLOGYOrdered By: Serg hope on 12-10-2021 HCG.beta subunit (U) [Moles/Vol] Negative Normal [facility] Man Sero Troponin 0 Hr.on 12-10-2021 Troponin I.cardiac [Mass/Vol] ng/mL Low 10.10-27.10 [facility] Comment on above: Result Comment: The 95% CI (Confidence Interval) PPV (Positive Predictive Value) for myocardial infarction in females is 38 pg/mL, in males 51 pg/mL. The results should be used in conjunction with clinical conditions of myocardial infarction. (Access High Sensitivity Troponin I Instructions For Use, Mili Schlater, December 2017) Performed By: #### 2 339946, 43043077, 54253495, 1502213, 27804933, 21439354, 3149003 #### [facility] [address] [place] [address] U BetaHcg Qualon 12-10-2021 HCG.beta subunit (U) [Moles/Vol] Negative Normal [facility] Comment on above: Performed By: #### 2 1376428, 79353979 ####[facility] [address] [place] [address] UA With Cult Reflexon 2021 Bilirubin Ql (U) Negative Normal Negative [facility] Comment on above: Performed By: #### 2 1849253, 82348524 #### [facility] [address] [place] [address] Clarity (U) CLEAR Normal Clear [facility] Comment on above: Performed By: #### 2 0059389, 53902090 #### [facility] [address] [place] [address] Color (U) YELLOW Normal Yellow [facility] Comment on above: Performed By: #### 2 1655900, 86621292 #### [facility] [address] [place] [address] Epithelial cells.squamous LM.HPF (Urine sed) [#/Area] 0-2 Normal 0-2 [facility] Comment on above: Performed By: #### 2 8853702, 07508264 #### [facility] [address] [place] [address] Glucose Test strip (U) [Mass/Vol] Negative Normal Negative [facility] Comment on above: Performed By: #### 2 8524468, 49331739 #### [facility] [address] [place] [address] Hemoglobin Ql (U) Negative Normal Negative [facility] Comment on above: Performed By: #### 2 8992553, 57060867 #### [facility] [address] [place] [address] Ketones (U) [Mass/Vol] Negative Normal Negative [facility] Comment on above: Performed By: #### 2 2871853, 95726887 #### [facility] [address] [place] [address] [place].plasma/Lithiu m.RBC (Bld) [Mass ratio] 0-3 Normal 0-3 [facility] Comment on above: Performed By: #### 2 8972216, 65726923 #### [facility] [address] [place] [address] Nitrite Ql (U) Negative Normal Negative [facility] Comment on above: Performed By: #### 2 8411154, 93299980 #### [facility] [address] [place] [address] pH (U) 6.0 [pH] Invalid Interpretation Code 5.0-9.0 [facility] Comment on above: Performed By: #### 2 8851207, 47787716 #### [facility] [address] [place] [address] Protein (U) [Mass/Vol] Negative Normal Negative [facility] Comment on above: Performed By: #### 2 9526859, 98648702 #### [facility] [address] [place] [address] Specific gravity (U) [Rel density] 1.025 Invalid Interpretation Code 1.005-1.030 [facility] Comment on above: Performed By: #### 2 0902231, 37519597 #### [facility] [address] [place] [address] Type of Urine collection method Clean Catch Normal [facility] Comment on above: Performed By: #### 2 0440489, 18696088 #### [facility] [address] [place] [address] Urobilinogen Qn (U) 0.2 {Isamar'U}/dL Normal 0.0-1.0 [facility] Comment on above: Performed By: #### 2 9498526, 90158703 #### [facility] [address] [place] [address] WBC Auto Ql (U) Negative Normal Negative [facility] Comment on above: Performed By: #### 2 4058166, 47375463 #### [facility] [address] [place] [address] WBC LM.HPF (Urine sed) [#/Area] 0-5 Normal 0-5 [facility] Comment on above: Performed By: #### 2 0028834, 25029875 #### [facility] [address] [place] [address] URINALYSISOrdered By: Serg Goodson on 12-10-2021 Bilirubin [...] AM) Normal Negative [facility] UA Auto SS [place].plasma/Lithiu m.RBC (Bld) [Mass ratio] 0-3 /HPF Normal [...] [facility] UA Auto SS Urobilinogen Qn (U) 0.7788972 {Isamar'U}/dL Normal 0.0 - 1.0 EU/dL [facility] [...] M.D. Transcribed by: FABI Technologist: MARKO Ornelas [facility] eGFRon 12-10-2021 GFR/1.73 sq M.predicted among blacks MDRD (S/P/Bld) [Vol rate/Area] mL/min/{1.73_m2} Normal >=59 [facility] Comment on above: Order Comment: Order added by Discern Expert. Result Comment: eGFR is race adjusted. AA=. Performed By: #### 2 048927, 67847269, 76192492, 4070884, 92341881, 00464325, 7392248 #### [facility] [address] [place] [address] GFR/1.73 sq M.predicted among non-blacks MDRD (S/P/Bld) [Vol rate/Area] mL/min/{1.73_m2} Normal >=59 [facility] Comment on above: Order Comment: Order added by Discern Expert. Result Comment: Flatware Maker sonu kidney disease could be indicated at eGFR's of less than 60 mL/min/1.73m2. Kidney failure is indicated at less than 15 mL/min/1.73m2. Performed By: #### 2 889623, 46971930, 73815060, 9097921, 71654236, 73465578, 5297850 #### [facility] [address] [place] [address] VC CONSULT FOLLOWUPon 2021 VC CONSULT FOLLOWUP Patient: TORIE JOHNSTON Exam Date: 11/16/2021 : 1990 Gender:F Ordering : DR SADI JEWELL M.D. Admission #: [id number] Family : Order #: [id number] CLICK HERE TO VIEW EXAM RADIOLOGY REPORT [...] Wood M.D. on 11/16/2021 at 12:01 Normal [facility] VC EXT VENOUS LT LIMITEDon 0 11-16-2021 VC EXT VENOUS LT LIMITED Patient: TORIE JOHNSTON Exam Date: 11/16/2021 : 1990 Gender:F Ordering : DR SADI JEWELL M.D. Admission #: [id number] Family : Order #: [id number] CLICK HERE TO VIEW EXAM RADIOLOGY REPORT [...] Wood M.D. on 11/16/2021 at 11:58 Normal [facility] VC ENDOVENOUS ABL 1ST V LTon 11-08-2021 VC ENDOVENOUS ABL 1ST V LT Patient: TORIE JOHNSTON Exam Date: 11/08/2021 : 1990 Gender:F Ordering : DR SADI JEWELL M.D. Admission #: [id number] Family : Order #: [id number] CLICK HERE TO VIEW EXAM RADIOLOGY REPORT PROCEDURE: VEIN CENTER ENDOVENOUS ABLATION FIRST VEIN LEFT COMPARISON: None. INDICATIONS: Pain co-occurrent and due to varicose veins of bilateral legs I83.813 OPERATIVE REPORT: The risks and benefits of the procedure had been previously discussed, and were rediscussed at length. Informed written consent was obtained by mo and Ketan Haley assisted. Time out procedure [...] Jose Wood M.D. on 11/08/2021 at 08:59 [facility] VC CONSULT FOLLOWUPon 2021 VC CONSULT FOLLOWUP Patient: TORIE JOHNSTON Exam Date: 10/19/2021 : 1990 Gender:F Ordering : DR SADI JEWELL M.D. Admission #: [id number] Family : Order #: [id number] CLICK HERE TO VIEW EXAM RADIOLOGY REPORT [...] Jose Wood M.D. on 10/19/2021 at 09:37 [facility] VC EXT VENOUS RT LIMITEDon 0 10-19-2021 VC EXT VENOUS RT LIMITED Patient: TORIE JOHNSTON Exam Date: 10/19/2021 : 1990 Gender:F Ordering : DR SADI JEWELL M.D. Admission #: [id number] Family : Order #: [id number] CLICK HERE TO VIEW EXAM RADIOLOGY REPORT [...] Wood M.D. on 10/19/2021 at 09:34 Normal [facility] VC ENDOVENOUS ABL 1ST V RTon 10-16-2021 VC ENDOVENOUS ABL 1ST V RT Patient: TORIE JOHNSTON Exam Date: 10/16/2021 : 1990 Gender:F Ordering : DR SADI JEWELL M.D. Admission #: [id number] Family : Order #: [id number] CLICK HERE TO VIEW EXAM RADIOLOGY REPORT [...] Sadi Jewell MD on 10/16/2021 at 09:30 [facility] THYROIDon 10-10-2021 US THYROID EXAMINATION: US [...] authenticated by: JOSE Quezada: 2021-10-10 08:52 Normal [facility] Vital Signs Date Time Vital Sign Value Performing Clinician Isabelle nielsen 12-10-2021 14:00-0400 Body temperature 98.6 [degF] [facility] 12-10-2021 14:00-0400 Diastolic blood pressure 94 mm[Hg] [facility] 12-10-2021 14:00-0400 Heart rate 86 /min [facility] 12-10-2021 14:00-0400 Mean blood pressure 106 mm[Hg] [facility] 12-10-2021 14:00-0400 Respiratory rate 18 /min [facility] 12-10-2021 14:00-0400 SaO2% (BldA) [Mass fraction] 100 % [facility] 12-10-2021 14:00-0400 Systolic blood pressure 131 mm[Hg] [facility] 12-10-2021 03:38-0400 Body temperature 98.24 [degF] [facility] 12-10-2021 03:38-0400 Diastolic blood pressure 64 mm[Hg] [facility] 12-10-2021 03:38-0400 Heart rate 92 /min [facility] 12-10-2021 03:38-0400 Mean blood pressure 80 mm[Hg] [facility] 12-10-2021 03:38-0400 Respiratory rate 17 /min [facility] 12-10-2021 03:38-0400 SaO2% (BldA) [Mass fraction] 99 % [facility] 12-10-2021 03:38-0400 Systolic blood pressure 111 mm[Hg] [facility] 12-10-2021 03:00-0400 Diastolic blood pressure 85 mm[Hg] [facility] 12-10-2021 03:00-0400 Mean blood pressure 102 mm[Hg] [facility] 12-10-2021 03:00-0400 Systolic blood pressure 137 mm[Hg] [facility] 12-10-2021 00:00-0400 Heart rate 80 /min [facility] 12-09-2021 23:00-0400 gluc 90 mg/dL [facility] 12-09-2021 23:00-0400 gluc [facility] 12-09-2021 23:00-0400 Heart rate 75 /min [facility] 12-09-2021 22:46-0400 Heart rate 86 /min [facility] Encounters Encounter Date Encounter Type Care Provider Facility Start: 2023 End: 06-21-2023 ambulatory EVGENY ZHOU Facility:[facility] Start: 09-20-2022 End: 09-21-2022 [...] End: 12-10-2021 Emergency department patient visit [facility] Start: 11-23-2021 End: 11-24-2021 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 YAMILE GARCIA Facility:[facility] Start: 11-21-[address] [...] End: 08-22-2020 Patient encounter procedure External Provider [facility] Start: 08-22-2020 Results Only External Provider Exter nal-NonCCF Procedures Date Procedure Procedure Detail Performing Clinician Start: 08-22-2020 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 Start: 08-22-2020 EXTERNAL LAB External P rovider Plan of Treatment Date Care Activity Detail Author Start: 01-26-2020 Influenza vaccination INFLUENZA (#1) [facility] Start: 2019 HPV TESTING HPV TESTING [facility] Start: 2010 PAP TESTING PAP TESTING [facility] Start: 2008 Urine microalbumin profile DTAP,TDAP ,TD (1 - Tdap) [facility] Start: 2007 HEPATITIS C SCREENING HEPATITIS C SC REENING [facility] Start: 2007 HIV SCREENING HIV SCREENING [facility] Start: 2001 Adult depression scr eening assessment DEPRESSION SCREENING [facility] Payers Date Payer Category Payer Private Health Insurance [employer] A ETNA OPEN ACCESS [employer] SELECT [id number] 2020-Present EPO [id number] 1990 Unknown [id number] 93 1990 Unknown [id number] [id number] 1990 Unknown [id number] [id number] 1989 Unknown [id number] [id number] 1989 Unknown [id number] [id number] 93 1989 Unknown [id number] 2.16.840.1.947366.3.579.2.5 1989 Unknown [id number] 2.16.840.1.569080.3.579.2.5 1989 Unknown [id number] 2.16.840.1.010278.3.579.2.5 1990 Unknown [id number] 1989 Unknown [id number] [id number] 1989 Unknown [id number] 2.16.840.1.482739.3.579.2.5 1989 Unknown [id number] 2.16.840.1.098623.3.579.2.5 1989 Unknown [id number] 2.16.840.1.612028.3.579.2.5 1989 Unknown [id number] 2.16.840.1.368778.3.579.2.5 1989 Unknown [id number] 2.16.840.1.342817.3.579.2.5 93 1960 Medicaid [id number] 1960 Private Health Insurance [id number] 1959 Self-pay [id number] 1959 Self-pay 1959 Unknown [id number] 1959 Unknown [id number] Social History Date Type Detail Facility Start: 08-22-2020 Tobacco smoking stat [facility] Unknown if ever smoked [facility] Start: 1990 Sex Assigned At Not on file C [facility] Exposure to SARS-CoV -2 (event) Not sure [facility] Sex Assigned At [employer] Other Tobacco smoking status No Smokin g Status Entered [facility] Functional Status Date Assessment Result Facility 12-09-2021 Functional Status N/A [facility] Progress note 2023 Note Date & Type Note Facility 2023 Note HNO ID: [id number] Author: FRANCIS MA MD Service: ? Author Type: Physician Type: Progress Notes Filed: 2023 14:44 Note Text: [facility], [place] Department of Hematologic Oncology and Blood Disorders PATIENT NAME: [facility] NO: [id number] ATTENDING PHYSICIAN: Francis Ma MD. DATE OF [...] Abs Lymph 1.00 - 4.00 k/uL 1.42 [place]ord% % 5.3 Abs [place]ord <0.87 k/uL 0.21 Eosin% % 1.5 Abs [...] in 2018 during ). 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 She was placed on folic acid. [...] We also reviewed (more content not included)... [facility] Evaluation + Plan note 12-10-2021 Note Date [...] Diagnostic Tests Pending * Path. Review 12/10/21 [facility] Hospital Discharge instructions 12-10-2021 Note Date [...] if you feel dizzy. General instructions Take exjb-mwf-fuuyemf and prescription medicines only as told by [...] 02/20/2006 Document Revised: 04/06/2019 Document Reviewed: 04/06/2019 [employer] Patient Education 2020 [employer]. Follow Up Care 12/09/2021 22:26:43 With:YAMILE GARCIA Address: [address] [place] [id number] [phone] Business (1) When:12/13/2021 Comments:Return to the emergency room if your vertigo recurs or any new symptoms [facility] Clinical Note 12-10-2021 Note Date & [...] any SOB. pt has hx of anxiety [facility] Evaluation note Note Date & Type Note Facility Evaluation note No Information [facility] [employer] Other History general Narrative - Reported Note Date & Type Note Facility History general Narrative - Reported Type Surgical History D & C Surgical History tubal ligation [facility] [employer] Other Hospital course Narrative Note Date & Type Note Facility Hospital course Narrative No data available for this section [facility] Progress note Note Date & Type Note Facility Progress note No data available for this section [facility] Summary Purpose Family History No Family [...] or prosecute any alcohol or drug abuse patient[facility] the event this information is protected by the Federal Confidentiality of Alcohol and Drug Abuse Patient Records regulations: The Federal rules restrict any use of the information to criminally investigate or prosecute any alcohol or drug abuse patient.[facility] REASON FOR VISIT (unrecogniz ed section and content) N/S covid test Care Team (unrecognized sect ion and content) Personnel Name: YAMILE GARCIA CNP Address: [address] [place], [place] [id number] [place] INFORMATION SOURCE (unrecogn ized section and content) DATE CREATED AUTHOR 12/14/2021 [facility] DATE CREATED AUTHOR AUTHOR'S ORGANIZ ATION 10/06/2022 [facility] DATE CREATED AUTHOR AUTHOR'S ORGANIZ ATION 06/22/2023 [facility] FOR RECORDS PERTAINING TO PATIENTS WHO ARE [...] BE BASED ON THE PRIMARY CLINICAL RECORDS. [facility]. provides no warranty or guarantee of the accuracy or completeness of information in this document.
[2024-08-13 16:24] LABS: TSH W/ REFLEX FT4 3.162 uIU/mL (0.358-3.740)
== END 2024-08-13 15:27 | disposition home or self-care (01) ==
LOC: LAB 15:27
PROVIDERS: Family Provider Nurse Practitioner Primary Care; PCP Nurse Practitioner; Visit Provider Internal Medicine
DX: E03.9 Hypothyroidism, unspecified (principal)
CPT/HCPCS: 36415; 84443

== ENCOUNTER 2025-04-17 10:47 | Outpatient (OUT) | payer OTHER, SELFPAY ==
--- OUTSIDE RECORDS SUMMARY | 2023-11-07 08:15 | XMS_ITS ---
Author Organization [facility] vices Address [address] [place] [id number] Care Team Providers Care Can Marker Name Role Phone Alee Chakraborty Primary Care Provider Kandi Marsh Unavailable [phone] REASON FOR VISIT Thyroid Medications Medication SIG (Take, Route, Frequency, Duration) Notes Start Date End Date Status busPIRone HCl 10 MG Tablet 1 tablet Orally Three times a day; Duration: 30 days ActiveLevothyroxine Sodium 50 MCG Tablet1 tablet in the morning on an empty stomach Orally Once a day; Duration: 30 daysActivehydrOXYzine Pamoate 25 MG Capsule1 capsule as needed for Anxiety or Sleep Orally Twice a day; Duration: 60 daysActiveguaiFENesin ER 600 MG Tablet Extended Release 12 Hour1 tablet as needed Orally every 12 hrs; Duration: 10 days08/20/2023ctivepredniSONE 20 MG Tablet1 tablet Orally Once a day; Duration: 5 days08/20/2023ctivePantoprazole Sodium 40 MG Tablet Delayed Release1 tablet Orally Once a day; Duration: 90 days Active Social History Sex Assigned At : Social History Observation Description Sex Assigned At Female Encounters Encounter Location Date Provider Diagnosis Main [address] [place] [id number] 11/07/2023 Kandi Marsh Plan Of Treatment Next Appt Details Provider Name:Alee Chakraborty, 07/05/2025 04:45:00 PM, [address] [place], [phone], Progress Notes * Torie ORTIZDOB:[birth year] (34 yo F)Acc No.[id number]:11/07/2023 Medical Note Patient: Torie Malin :?Kandi Garcia MSN, ADEOLA, SHEILA-CDOB: 1990???Age:33 Y???Sex:FemaleDate:11/07/2023hone:[phone]:[address] [place], [place] [address]p:[facility] Subjective: * Chief Complaints: * T hyroid * Medications: T akingguaiFENesin ER 600 MG Tablet Extended Release 12 Hour 1 tablet as needed Orally every 12 hrs predniSONE 20 MG Tablet 1 tablet Orally Once a day Pantoprazole Sodium 40 MG Tablet Delayed Release 1 tablet Orally Once a day hydrOXYzine Pamoate 25 MG Capsule 1 capsule as needed for Anxiety or Sleep Orally Twice a day busPIRone HCl 10 MG Tablet 1 tablet Orally Three times a day Levothyroxine Sodium 50 MCG Tablet 1 tablet in the morning on an empty stomach Orally Once a day Taking guaiFENesin ER 600 MG Tablet Extended Release 12 Hour 1 tablet as needed Orally every 12 hrs Taking predniSONE 20 MG Tablet 1 tablet Orally Once a day Taking Pantoprazole Sodium 40 MG Tablet Delayed Release 1 tablet Orally Once a day Taking hydrOXYzine Pamoate 25 MG Capsule 1 capsule as needed for Anxiety or Sleep Orally Twice a day Taking busPIRone HCl 10 MG Tablet 1 tablet Orally Three times a day Taking Levothyroxine Sodium 50 MCG Tablet 1 tablet in the morning on an empty stomach Orally Once a day Billing Information: * Procedure Codes: * Electronic signature of BOBBY Carney on 04/17/2025 at 10:51 AM ESTSign off status: Pending * Provider: HONG Cedeno, ADEOLA, BOBBY Date: 0 11/07/2023 Generated for Printing/Faxing/eTransmitting on:?04/17/2025 10:51 AM EST
--- OUTSIDE RECORDS SUMMARY | 2023-11-07 11:15 | XMS_ITS ---
Author Organization [facility] vices Address [address] [place], [place] [id number] Care Team Providers Care Wheel Blocker Name Role Phone Alee Chakraborty Primary Care Provider Georgina Richardson Unavailable [phone] REASON FOR VISIT Thyroid Social History Sex Assigned At : Social History Observation Description Sex Assigned At Female Encounters Encounter Location Date Provider Diagnosis [address] [place] [address] 11/07/2023 Georgina Richardson Plan Of Treatment Next Appt Details Provider Name:Alee Chakraborty, 07/05/2025 04:45:00 PM, [address] [place], [place], [id number], Progress Notes * Torie ORTIZDOB:[birth year] (34 yo F)Acc No.[id number]:11/07/2023 Medical Note Patient: Justina Torie daniels :?Georgina RichardsonDOB:1990???Age:33 Y???Sex: FemaleDate:11/07/2023hone:[phone]:[address] [place], [id number]:Alee Chakraborty Subjective: * Chief Complaints: * T hyroid Billing Information: * Procedure Codes: * Electronic signature of SHEILA Mohan on 04/17/2025 at 10:52 AM ESTSign off status: Pending * Provider: Emanuel Richardson Date: 0 11/07/2023 Generated for Printing/Faxing/eTransmitting on:?04/17/2025 10:52 AM EST
--- OUTSIDE RECORDS SUMMARY | 2023-11-21 09:00 | XMS_ITS ---
Author Organization [facility] vices Address [address] [place], [place] [id number] Care Team Providers Care Scraper Burrer Name Role Phone Alee Chakraborty Primary Care Provider Vikash Ocampo Unavailable [phone] REASON FOR VISIT Wellness Social History Sex Assigned At : Social History Observation Description Sex Assigned At Female Encounters Encounter Location Date Provider Diagnosis [address] [place] [address] 11/21/2023 Vikash Ocampo Plan Of Treatment Next Appt Details Provider Name:Alee Chakraborty, 07/05/2025 04:45:00 PM, [address] [place], [phone], Progress Notes * Torie ORTIZDOB:[birth year] (34 yo F)Acc No.[id number]:11/21/2023 Progress Notes Patient: Torie Malin :?Vikash Walsh NP-CDOB:1990???Age:33 Y ???Sex:FemaleDate:11/21/2023hone:[phone]:[address] [place] [address]Bnf:Alee Chakraborty Subjective: * Chief Complaints: * W ellness * Electronic signature of Vikash Ocampo NP on 04/17/2025 at 10:51 AM ESTSign off status: Pending * Provider: CHANEL Patel Date: 0 11/21/2023 Generated for Printing/Faxing/eTransmitting on:?04/17/2025 10:51 AM EST
--- OUTSIDE RECORDS SUMMARY | 2023-11-26 10:30 | XMS_ITS ---
Author Organization [facility] [place] Address [address] [place] [address] Care Team Providers Care A P Supervisor Name Role Phone Nico WATER METER MECHANIC, Vikash Primary Care Provider Unavailab Khloe Carson Unavailable [phone] REASON FOR VISIT MD Encounters Encounter Location Date Provider Diagnosis [facility] [address] [place] [address] 11/26/2023 Khloe Salcedo Plan Of Treatment No Information Progress Notes * Torie ORTIZDOB:[birth year] (34 yo F)Acc No.[id number]:11/26/2023 UNLOCKED PROGRESS NOTE Progress Notes Patient: Justina MURRELL Torie :?Khloe Salcedo M.D.:1990???Age:33 Y ???Sex:FemaleDate:11/26/2023hone:[phone]:[address] [place], [place]Pcp:Vikash Walsh NP Subjective: * Chief Complaints: * 1 . MD. * Medical History: Objective: * Vitals: Assessment: Plan: * Treatment: * * Electronic signature of Khloe Salcedo MD, [id number] on 04/17/2025 at 10:52 AM ESTSign off status: PendingVisit Status:?VOICEMSG (Voice) * Provider: Daysi Salcedo M.D. Date: 0 11/26/2023 Generated for Printing/Faxing/eTransmitting on:?04/17/2025 10:52 AM EST
--- OUTSIDE RECORDS SUMMARY | 2025-03-02 10:30 | XMS_ITS ---
Author Organization [facility] [employer] Address [address] [place] [address] Care Team Providers Care Junior Recruiter Name Role Phone Nico CT MANAGER, Vikash Primary Care Provider Unavailab Khloe Carson Unavailable [phone] REASON FOR VISIT MD Encounters Encounter Location Date Provider Diagnosis [facility] On[facility] [address] [place] [address] 03/02/2025 Khloe Salcedo Plan Of Treatment No Information Progress Notes * Torie ORTIZDOB:[birth year] (34 yo F)Acc No.[id number]:03/02/2025 UNLOCKED PROGRESS NOTE Progress Notes Patient: Justina MURRELL Torie :?Khloe Salcedo M.D.:1990???Age:34 Y ???Sex:FemaleDate:03/02/2025Phone:[phone]:[address] [place], [place]Pcp:Vikahs Walsh NP Subjective: * Chief Complaints: * 1 . MD. * Medical History: Objective: * Vitals: Assessment: Plan: * Treatment: * * Electronic signature of Khloe Salcedo MD, [phone] on 04/17/2025 at 10:51 AM ESTSign off status: PendingVisit Status:?CANC (Cancelled) * Provider: Daysi Salcedo M.D. Date: Generated for Printing/Faxing/eTransmitting on:?04/17/2025 10:51 AM EST
--- OUTSIDE RECORDS SUMMARY | 2025-04-12 10:45 | XMS_ITS ---
Author Organization [facility] Address [address] [place], [place] [id number] Care Team Providers Care Administrative Staff Supervisor Name Role Phone Alee Chakraborty Primary Care Provider [phone] Allergies No Known Allergies REASON FOR VISIT thyroid Medications Medication SIG (Take, Route, Frequency, Duration) Notes Start Date End Date Status busPIRone HCl 10 MG Tablet TAKE 1 TABLET BY MOUTH THREE TIMES A DAY FOR 90 DAYS; Duration: 90 ActivehydrOXYzine Pamoate 25 MG Capsule1 capsule as needed for Anxiety or Sleep Orally Twice a day; Duration: 30 daysActiveLevothyroxine Sodium 50 MCG Tablet1 tablet in the morning on an empty stomach Orally daily; Duration: 90 daysActive Pantoprazole Sodium 40 MG Tablet Delayed Release TAKE 1 TABLET BY MOUTH EVERY DAY Orally daily; Duration: 90 days As needed Active Social History Sex Assigned At : Social History Observation Description Sex Assigned At Female Social History Additional DetailsCategorySocial InfoOptionsDetailsSafetyPatient feels safe in relationshipsYes Problems Problem Type SNOMED Code ICD Code Onset Dates Problem Status W/U Status Risk Notes Problem Gastroesophageal ref lux disease (669019745) GERD without esophagitis (K21.9) Activeconfirmed Vital Signs Temperature 97.6 degrees Fahrenheit 04/12/20 25 Blood pressure systolic 137 mm Hg 04/12/20 25 Blood pressure diastolic 83 mm Hg 025 Heart Rate 95 /min 04/12/2025 Respiratory Rate 18 /min 04/12/2025 Height 62.00 in 04/12/2025 Weight 276.9 lbs 04/12/2025 BMI 50.64 kg/m2 04/12/2025 Oximetry 96 % 04/12/2025 Height-cm 157.48 cm 04/12/2025 Weight-kg 125.6 kg 04/12/2025 Jackelin Ervin 04/12/2025 0 3:51:19 PM EST > Encounters Encounter Location Date Provider Diagnosis [place] [address] [place] [id number] 04/12/2025 Alee Chakraborty Hypothyroid E03.9 an d GERD without esophagitis K21.9 Assessments Encounter Date Diagnosis (ICD Code) Assessment Notes Treatment Notes Treatment Clinical Notes Section Notes 04/12/2025 Hypothyroid (ICD-10 - E03.9) Stable. Continue Levothyroxine. Will repeat labs today04/12/2025GERD without esophagitis (ICD-10 - K21.9)Symptoms worse as no refills pf protonix left. Will refill today Plan Of Treatment Medication Medication Name Sig Start Date Stop Date Notes Levothyroxine Sodium 50 MCG Tablet 1 tab let in the morning on an empty stomach Orally daily; Duration: 90 days Pantoprazole Sodium 40 MG Tablet Delayed ReleaseTAKE 1 TABLET BY MOUTH EVERY DAY Orally daily; Duration: 90 daysTreatment Notes Assessment Notes Hypothyroid Stable. Continue Lev othyroxine. Will repeat labs today GERD without esophagitis Symptoms worse as no refills pf protonix left. Will refill today Pending Test Test Name Order Date LIPID PANEL WITH REFLEX TO DIRECT LDL COMPREHENSIVE METABOLIC PANEL WITH GFR 1 06/12/2024 TSH WITH FT4 REFLEX 04/12/2025 Next Appt Details Follow Up: Wellness in May, Reason: Provider Name:Alee Chakraborty, 07/05/2025 04:45:00 PM, [address] [place], [place], [id number], History and Physical Notes * Examination CategorySub-CategoryDetailNotesCategory NotesGeneral Examination General appearance: alert, pleasant, well-nourished and in no acute distress. Head: normocephalic, atraumatic. Eyes: pupils equal, round, reactive to light and accommodation. Skin: skin is warm and dry, with no rashes, good skin turgor and normal hair distribution. Heart: regular rate and rhythm without murmurs, gallops, clicks or rubs. Lungs: clear to auscultation bilaterally, with good air movement and no rales, rhonchi or wheezes. Extremities: normal extremity with no clubbing, cyanosis or edema , full range of motion. Psych: alert and oriented x 3 , cooperative with exam , normal affect / mood , speech is clear and coherent. CQM ExceptionsCurrently taking Aspirin:Aspirin Use:: No Progress Notes * Torie ORTIZDOB:[birth year] (34 yo F)Acc No.[id number]:04/12/2025 Medical Note Patient: Torie JUAREZ :?Alee Chakraborty, MDDOB:1990???Age:34 Y???Sex: FemaleDate:04/12/2025Phone:[phone]:[address] [place] [address] Subjective: * Chief Complaints: * T hyroid * HPI: ???Interim History:? Hypothyroidism f/u: Labs from July?Normal TSH Medication: Levothyroxine 50 mcg daily Denies any unintentional weight changes, diarrhea/constipation, skin changes, palpitations, chest pain, SOB, vision changes. * ROS: ???Negative except mentioned above in the HPI. * Medical History: Beta thalassemia minor Hypothyroid Acid reflux Anxiety? * Surgical History: D&C ? Tubal ? * Hospitalization/Major Diagno stic Procedure: see surgical hx ? * Family History: P aternal Grand Father: . P aternal Grand Mother: . M aternal Grand Father: . M aternal Grand Mother: . * Social History: ???Safety:?Patient feels safe in relationships: Yes. * Medications: T akingbusPIRone HCl 10 MG Tablet TAKE 1 TABLET BY MOUTH THREE TIMES A DAY FOR 90 DAYS Levothyroxine Sodium 50 MCG Tablet TAKE 1 TABLET BY MOUTH EVERY DAY IN THE MORNING ON AN EMPTY STOMACH FOR 30 DAYS hydrOXYzine Pamoate 25 MG Capsule 1 capsule as needed for Anxiety or Sleep Orally Twice a day Taking busPIRone HCl 10 MG Tablet TAKE 1 TABLET BY MOUTH THREE TIMES A DAY FOR 90 DAYS Taking Levothyroxine Sodium 50 MCG Tablet TAKE 1 TABLET BY MOUTH EVERY DAY IN THE MORNING ON AN EMPTY STOMACH FOR 30 DAYS Taking hydrOXYzine Pamoate 25 MG Capsule 1 capsule as needed for Anxiety or Sleep Orally Twice a day Not-Taking/PRNPantoprazole Sodium 40 MG Tablet Delayed Release TAKE 1 TABLET BY MOUTH EVERY DAY Medication List reviewed and reconciled with the patientNot-Taking/PRN Pantoprazole Sodium 40 MG Tablet Delayed Release TAKE 1 TABLET BY MOUTH EVERY DAY Medication List reviewed and reconciled with the patient * Allergies: N .K.D.A.no[Allergies Verified] Objective: * Vitals: T emp:97.6F, Wt:276.9lbs, Ht: 62.00 in, BMI:50.64Index, BP:137/83mm Hg, HR:95/min, RR:18/min, Pain scale:01-10, Oxygen sat %:96%, Wt-k.6 kg, Ht-cm: 157.48 cm, Body Surface Area: 2.34. Jackelin Ervin 04/12/2025 03:51:19 PM EST >. * Examination: ???General Examination: ???General appearance: alert, pleasant, well-nourished and in no acute distress. Head: normocephalic, atraumatic. Eyes: pupils equal, round, reactive to light and accommodation. Skin: skin is warm and dry, with no rashes, good skin turgor and normal hair distribution. Heart: regular rate and rhythm without murmurs, gallops, clicks or rubs. Lungs: clear to auscultation bilaterally, with good air movement and no rales, rhonchi or wheezes. Extremities: normal extremity with no clubbing, cyanosis or edema , full range of motion. Psych: alert and oriented x 3 , cooperative with exam , normal affect / mood , speech is clear and coherent. ???CQM Exceptions: ?Currently taking Aspirin:? Aspirin Use:? Assessment: * Assessment: 1.?Hypothyroid - E03.9 (Primary)???2.?GERD without esophagitis - K21.9 ?? Plan: * Treatment: Refill Levothyroxine Sodium Tablet, 50 MCG, 1 tablet in the morning on an empty stomach, Orally, daily, 90 days, 90 Tablet, Refills 0.?LAB: LIPID PANEL WITH REFLEX TO DIRECT LDL ?LAB: COMPREHENSIVE METABOLIC PANEL WITH GFR ?LAB: TSH WITH FT4 REFLEX Notes: Stable. Continue Levothyroxine. Will repeat labs today??2.?GERD without esophagitis? Refill Pantoprazole Sodium Tablet Delayed Release, 40 MG, TAKE 1 TABLET BY MOUTH EVERY DAY, Orally,daily As needed, 90 days, 90, Refills 0.?? Notes: Symptoms worse as no refills pf protonix left. Will refill today?? * Procedure Codes: 3 079F HTN DIAST BP = 80-712120N HTN SYST BP = 130 - 139 * Follow Up: Mckenzie lombardo in May * Billing Information: * Visit Code: 09046 Office Visit Est 20-29 minutes. * Procedure Codes: 3079F HTN DIAST BP = 80-89. 3075F HTN SYST BP = 130 - 139. * ign off status: Completed true * Provider: Carline Chakraborty MD Date: 06/12/2024 Generated for Printing/Faxing/eTransmitting on:?04/17/2025 10:52 AM EST
--- OUTSIDE RECORDS SUMMARY | 2025-04-17 10:51 | XMS_ITS | CCD ---
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 Name Role Phone Unavailable Primary Care Provider Juan Carlos Panchal Unavailable CEDRICYAMILE BRANDON Primary Care Physician FANTA, DR SADI Oliveira Consulting Unavailable AICHHOLZ, RADIO INTELLIGENCE OPERATOR YAMILE Primary Care Unavailable WEST, DR SADI Oliveira Attending Unavailable WEST, DR SADI Oliveira Admitting Unavailable WEST, DR SADI Oliveira Consulting Unavailable AICHHOLZ, RADIO INTELLIGENCE OPERATOR YAMILE Primary Care Unavailable WEST, DR SADI Oliveira Attending Unavailable WEST, DR SADI Oliveira Admitting Unavailable ZIEBER, DR JOSE Crowley Consulting Unavailable WEST, DR SADI Oliveira Consulting Unavailable AICHHOLZ, RADIO INTELLIGENCE OPERATOR YAMILE Primary Care Unavailable WEST, DR SADI Oliveira Attending Unavailable WEST, DR SADI Oliveira Admitting Unavailable ZIEBER, DR JOSE Crowley Consulting Unavailable WEST, DR SADI Oliveira Consulting Unavailable AICHHOLZ, RADIO INTELLIGENCE OPERATOR YAMILE Primary Care Unavailable WEST, DR SADI Oliveira Attending Unavailable WEST, DR SADI Oliveira Admitting Unavailable WEST, DR SADI Oliveira Consulting Unavailable AICHHOLZ, RADIO INTELLIGENCE OPERATOR YAMILE Primary Care Unavailable WEST, DR SADI Oliveira Attending Unavailable WEST, DR SADI Oliveira Admitting Unavailable ZIEBER, DR JOSE Crowley Consulting Unavailable WEST, DR SADI Oliveira Consulting Unavailable AICHHOLZ, RADIO INTELLIGENCE OPERATOR YAMILE Primary Care Unavailable WEST, DR SADI Oliveira Attending Unavailable FANTA, DR SADI Oliveira Admitting Unavailable ZIEBER, DR JOSE Crowley Consulting Unavailable FANTA, DR SADI Oliveira Admitting Unavailable WEST, DR SADI Oliveira Attending Unavailable AICHHOLZ, RADIO INTELLIGENCE OPERATOR YAMILE Primary Care Unavailable WEST, DR SADI Oliveira Consulting Unavailable AICHHOLZ, RADIO INTELLIGENCE OPERATOR YAMILE Consulting Unavailable AICHHOLZ, RADIO INTELLIGENCE OPERATOR YAMILE Primary Care Unavailable AICHHOLZ, RADIO INTELLIGENCE OPERATOR YAMILE Attending Unavailable AICHHOLZ, RADIO INTELLIGENCE OPERATOR YAMILE Admitting Unavailable AICHHOLZ, RADIO INTELLIGENCE OPERATOR YAMILE Admitting Unavailable AICHHOLZ, RADIO INTELLIGENCE OPERATOR YAMILE Attending Unavailable AICHHOLZ, RADIO INTELLIGENCE OPERATOR YAMILE Primary Care Unavailable AICHHOLZ, RADIO INTELLIGENCE OPERATOR YAMILE Consulting Unavailable ADONAY, DR JOSE Crowley Consulting Unavailable AICHHOLZ, RADIO INTELLIGENCE OPERATOR YAMILE Consulting Unavailable AICHHOLZ, RADIO INTELLIGENCE OPERATOR YAMILE Primary Care Unavailable AICHHOLZ, RADIO INTELLIGENCE OPERATOR YAMILE Attending Unavailable AICHHOLZ, RADIO INTELLIGENCE OPERATOR YAMILE Admitting Unavailable ADONAY, DR JOSE Crowley Consulting Unavailable FRANDY ., DR MATOS Attending Unavailable FRANDY ., DR MATOS Admitting Unavailable AICHHOLZ, RADIO INTELLIGENCE OPERATOR YAMILE Primary Care Unavailable FRANDY Montejo, DR MATOS Consulting Unavailable CONNIE COTA Consulting Unavailable MARIAN HIGGINS Consulting Unavailable STAR Montejo, MADDIE Attending Unavailable STAR ., MADDIE Admitting Unavailable AICHHOLZ, RADIO INTELLIGENCE OPERATOR YAMILE Primary Care Unavailable JOSE RICKETTS Consulting Unavailable STAR ., MADDIE Consulting Unavailable RONALDO, MARIAN Consulting Unavailable RONALDO, MARIAN Attending Unavailable RONALDO, MARIAN Admitting Unavailable AICHHOLZ, RADIO INTELLIGENCE OPERATOR YAMILE Primary Care Unavailable PAKO JERRY Consulting Unavailable ANA VAZ Consulting Unavailable RONALDO, MARIAN Attending Unavailable RONALDO, MARIAN Admitting Unavailable AICHHOLZ, RADIO INTELLIGENCE OPERATOR YAMILE Primary Care Unavailable LEROY PRETTY Consulting Unavailable Ludy Rm Consulting Unavailable FANTA, DR SADI Oliveira Consulting Unavailable AICHHOLZ, RADIO INTELLIGENCE OPERATOR YAMILE Primary Care Unavailable FANTA, DR SADI Oliveira Attending Unavailable FANTA, DR SADI Oliveira Admitting Unavailable ADONAY, DR JOSE Crowley Consulting Unavailable SHAMMO, EVGENY Primary Care Unavailable FRANCIS MA Referring Unavailable SHAMMO, EVGENY Primary Care Unavailable IRVIN, DIANE Referring Unavailable FRANCIS MA Attending Unavailable Medications Current Medications MedicationDrug Class(es)DatesSig (Normalized)Sig (Original)escitalopram 20 mg oral tablet (1 source)Serotonin Reuptake Inhibitortake 1 tablet by mouth every twenty-four hoursLexapro 20 MG 1 tablet Orally Once a day Activeferrous sulfate 325 mg oral tablet (1 source)Start: 28-08-4294vscanoy sulfate 325 mg Tab Refills(s) 0 Start Date: 03/23/14 Status: Orderedmeclizine hydrochloride 25 mg oral tablet (1 source)AntiemeticStart: 68-84-4887pmsc 1 tablet by mouth three times daily meclizine 25 mg Tab 25 mg = 1 tab(s), Oral, TID, # 20 tab(s), Refills(s) 0 Start Date: 12/10/21 Status: Orderedpantoprazole 40 mg delayed release oral tablet (1 source)Proton Pump Inhibitortake 1 tablet by mouth every twenty-four hours Pantoprazole Sodium 40 MG 1 tablet Orally Once a day ActiveZofran ODT 4 mg Tab-Dis (1 source)Start: 18-56-0020heyn 1 tablet by mouth every six hours as needed for nauseaZofran ODT 4 mg Tab-Dis 4 mg = 1 tab(s), Oral, q6hr, PRN Nausea/Vomiting, # 12 tab(s), Refills(s) 0Start Date: 12/10/21 Status: Ordered Problems Active Problems Problem ClassificationProblemDateDocumented DateEpisodic/ChronicDeficiency and other anemia (1 source)Beta thalassemia; 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)] Onset: 63-20-5819KuvkmbrDebyoquilh and other anemia (1 source)Anemia, unspecified; Translations: [ANEMIA UNSPECIFIED]Onset: 73-85-8054AhzhkxgtXjkbfznnke and other anemia (1 source)Iron deficiency anemia, unspecified; Translations: [Microcytic hypochromic anemia]Onset: 66-37-6889PlgpzzlwSvkqctwxal disorders (1 source)Gastroesophageal reflux disease; Translations: [Gastro-esophageal reflux disease without esophagitis]ChronicHeadache; including migraine (1 source)Headache; including migraine; Translations: [HEADACHE UNSPECIFIED] Onset: 69-84-5418Gtkedjygeg disorders (1 source)Hormone replacement therapy; Translations: [HORMONE REPLACEMENT THERAPY]Onset: 23-72-3831XnlhjxtjRckof aftercare (1 source)Other shelter (current) drug therapy; Translations: [OTH SEED TESTER CURRENT DRUG THERAPY]Onset: 48-94-2436YlzxlevsUseqj connective tissue disease (1 source)Pain in lower limb; Translations: [Pain in leg, unspecified]Onset: 04-91-6722BlaxlkvaVlilc upper respiratory infections (5 sources)Acute upper respiratory infection, unspecified; Translations: [Acute pharyngitis, unspecified]Onset: 49-84-5643IkezeizjOgxjteccd; thrombophlebitis and thromboembolism (8 sources)Phlebitis and thrombophlebitis of superficial vessels of right lower extremity; Translations: [Phlebitis and thrombophlebitis of superficial vessels of left lower extremity]Onset: 39-82-4017YpomrgxkEeuxwlz disorders (4 sources)Hypothyroidism, unspecified; Translations: [HYPOTHYROIDISM UNSPECIFIED]Onset: 18-55-4589AhjsqxwMubiteozogii (3 sources)COUGH, UNSPECIFIED; Translations: [COUGH, UNSPECIFIED]Onset: 09-26-2669Npzibffhsjtd (1 source)CONTACT W/AND (SUSP) EXPOS COVID-19; Translations: [CONTACT W/AND (SUSP) EXPOS COVID-19]Onset: 69-79-9471Anhlbbov veins of lower extremity (4 sources)Varicose veins of bilateral lower extremities with pain; Translations: [VARICOSE VNS GERBER LOW EXTREMW/PAIN]Onset: 61-79-5732Seftltqg Past or Other Problems Problem ClassificationProblemDateDocumented DateEpisodic/ChronicAbdominal pain (4 sources)Unspecified abdominal pain; Translations: [UNSPECIFIED ABDOMINAL PAIN]Onset: 00-33-3266ZhbfauxzOzqnrlo dysrhythmias (4 sources)Palpitations; Translations: [PALPITATIONS]Onset: 95-13-7171Tsdkrtph Conditions associated with dizziness or vertigo (5 sources)Dizziness and giddiness; Translations: [Dizziness and giddiness] Onset: 71-34-8989IndsdijuZeutqcj and fatigue (1 source)Weakness; Translations: [WEAKNESS]Onset: 26-46-6277YjnqadbuFjxtyy and vomiting (1 source)Nausea with vomiting, unspecified; Translations: [NAUSEA WITH VOMITING UNSPECIFIED]Onset: 17-41-4601WllpkwlrAspra nervous system disorders (1 source)Anesthesia of skin; Translations: [ANESTHESIA OF SKIN]Onset: 36-67-6943GskovrhkXlcaauyx codes; unclassified (1 source)Pain, unspecified; Translations: [PAIN UNSPECIFIED]Onset: 05-18-2022 EpisodicUnclassified (4 sources)PregnancyOnset: 03-04-2008 Resolved: 362996-75-5323Gvqlrsjsmgce (1 source)COUGH, UNSPECIFIED; Translations: [COUGH, UNSPECIFIED]Onset: 08-27-2022 Results Test NameValueInterpretationReference RangeFacilityEASTERN STATE H[facility]ITAL W Auto Differential panel (Bld)on 71-05-9779Zqljqnmeg (Bld) [#/Vol]0.03 10*3/uLNormal<0.11CParkview Health [facility] on above:Order Comment: Specimen Type: BLOOD SPECIMEN Ordering Facility: [facility] Address: [address] [place], [place] [address]Performed By: #### 06384-1, 00425-9 #### [facility] [id number] [address] [place] [address] [place] AMERICABasophils/100 WBC (Bld)0.5 % NormalFisher-Titus Medical Center on above:Order Comment: Specimen Type: BLOOD SPECIMEN Ordering Facility: [facility] Address: [address] [place], [place] [address]Performed By: #### 93371-6, 61685-0 #### [facility] [place] [id number] [address] [place] [address] [place] AMERICADifferential cell count method Nom (Bld)AutoNormalClevelTuscarawas Hospital on above:Order Comment: Specimen Type: BLOOD SPECIMEN Ordering Facility: [facility] Address: [address] [place], [place] [address]Performed By: #### 31952-9, 30627-8 #### [facility] [id number] [address] [place] [address] [place] AMERICAEosinophils (Bld) [#/Vol] 0.10 10*3/uLNormal<0.46[facility] on above:Order Comment: Specimen Type: BLOOD SPECIMEN Ordering Facility: [facility] Address: [address] [place], [place] [address]Performed By: #### 97907-4, 26603-9 #### [facility] [id number] [address] [place] [address] [place] AMERICAEosinophils/100 WBC (Bld)1.8 %NormalFisher-Titus Medical Center on above:Order Comment: Specimen Type: BLOOD SPECIMEN Ordering Facility: [facility] Address: [address] [place], [place] [address]Performed By: #### 76251-2, 55360-0 #### [facility] [id number] [address] [place] [address] [place] AMERICAErythrocyte distribution width (RBC) [Ratio]16.5 %High11.5-15.0[facility] on above:Order Comment: Specimen Type: BLOOD SPECIMEN Ordering Facility: [facility] Address: [address] [place], [place] [address]Performed By: #### 00683-1, 15129-9 #### [facility] [id number] [address] [place] [address] [place] AMERICAHematocrit (Bld) [Volume fraction]34.9 %Low36.0-46.0[facility] on above:Order Comment: Specimen Type: BLOOD SPECIMEN Ordering Facility: [facility] Address: [address] [place], [place] [address]Performed By: #### 64383-9, 18885-7 #### [facility] [id number] [address] [place] [address] [place] AMERICAHemoglobin (Bld) [Mass/Vol] 10.5 g/dLLow11.5-15.5CParkview Health [facility] Hospital on above:Order Comment: Specimen Type: BLOOD SPECIMEN Ordering Facility: [facility] Address: [address] [place], [place] [address]Performed By: #### 72780-6, 79231-4 #### [facility] [id number] [address] [place] [address] [place] AMERICAImmature granulocytes (Bld) [#/Vol]10*3/uLNormal<0.10[facility] on above:Order Comment: Specimen Type: BLOOD SPECIMEN Ordering Facility: [facility] Address: [address] [place], [place] [address]Performed By: #### 35532-6, 02539-0 #### [facility] [id number] [address] [place] [address] [place] AMERICAImmature granulocytes/100 WBC (Bld)0.2 %[facility] on above:Order Comment: Specimen Type: BLOOD SPECIMEN Ordering Facility: [facility] Address: [address] [place], [place] [address]Performed By: #### 08106-1, 42652-0 #### [facility] [id number] [address] [place] [address] [place] AMERICALymphocytes (Bld) [#/Vol] 1.77 10*3/uLNormal1.00-4.00[facility] on above:Order Comment: Specimen Type: BLOOD SPECIMEN Ordering Facility: [facility] Address: [address] [place], [place] [address]Performed By: #### 62027-6, 98253-6 #### [facility] [id number] [address] [place] [address] [place] AMERICALymphocytes/100 WBC (Bld) 31.3 %NormalFisher-Titus Medical Center on above:Order Comment: Specimen Type: BLOOD SPECIMEN Ordering Facility: [facility] Address: [address] [place], [place] [address]Performed By: #### 20191-7, 19063-0 #### [facility] [id number] [address] [place] [address] [place] AMERICAMCH (RBC) [Entitic mass]17.9 pgLow26.0-34.0[facility] on above:Order Comment: Specimen Type: BLOOD SPECIMEN Ordering Facility: [facility] Address: [address] [place], [place] [address]Performed By: #### 19474-9, 71458-7 #### [facility] [id number] [address] [place], [place] [address]MCHC (RBC) [Mass/Vol]30.1 g/dLLow30.5-36.0[facility] on above:Order Comment: Specimen Type: BLOOD SPECIMEN Ordering Facility: [facility] Address: [address] [place], [place] [address]Performed By: #### 35027-3, 44566-0 #### [facility] [id number] [address] [place], [place] [address]V (RBC) [Entitic vol]59.7 fLLow80.0-100.0[facility] on above:Order Comment: Specimen Type: BLOOD SPECIMEN Ordering Facility: [facility] Address: [address] [place], [place] [address]Performed By: #### 27432-3, 02618-6 #### [facility] [id number] [address] [place] [address] [place] AMERICAMonocytes (Bld) [#/Vol]0.25 10*3/uLNormal<0.87[facility] on above:Order Comment: Specimen Type: BLOOD SPECIMEN Ordering Facility: [facility] Address: [address] [place], [place] [address]Performed By: #### 20656-5, 65713-1 #### [facility] [id number] [address] [place] [address] [place] AMERICAMonocytes/100 WBC (Bld)4.4 % NormalFisher-Titus Medical Center on above:Order Comment: Specimen Type: BLOOD SPECIMEN Ordering Facility: [facility] Address: [address] [place], [place] [address]Performed By: #### 82098-8, 94650-5 #### [facility] [id number] [address] [place] [address] [place] AMERICANeutrophils (Bld) [#/Vol] 3.49 10*3/uLNormal1.45-7.50[facility] on above:Order Comment: Specimen Type: BLOOD SPECIMEN Ordering Facility: [facility] Address: [address] [place], [place] [address]Performed By: #### 39854-3, 89275-9 #### [facility] [id number] [address] [place] [address] [place] AMERICANeutrophils/100 WBC (Bld) 61.8 %NormalFisher-Titus Medical Center on above:Order Comment: Specimen Type: BLOOD SPECIMEN Ordering Facility: [facility] Address: [address] [place], [place] [address]Performed By: #### 38436-1, 79146-1 #### [facility] [place] [id number] [address] [place] [address] [place] AMERICANucleated RBC (Bld) [#/Vol] 10*3/uLNormal<0.01[facility] on above:Order Comment: Specimen Type: BLOOD SPECIMEN Ordering Facility: [facility] Address: [address] [place], [place] [address]Performed By: #### 65967-4, 04053-4 #### [facility] [id number] [address] [place] [address] [place] AMERICANucleated RBC/100 WBC (Bld) [Ratio]0.0 /100 WBCNormalCParkview Health [facility] Hospital on above:Order Comment: Specimen Type: BLOOD SPECIMEN Ordering Facility: [facility] Address: [address] [place], [place] [address]Performed By: #### 26245-1, 34498-1 #### [facility] [id number] [address] [place] [address] [place] AMERICAPlatelet mean volume (Bld) [Entitic vol]10.5 fLNormal9.0-12.7CParkview Health [facility] on above: Order Comment: Specimen Type: BLOOD SPECIMEN Ordering Facility: [facility] Address: [address] [place], [place] [address]Performed By: #### 13961-9, 74605-1 #### [facility] [id number] [address] [place], [place] [address]Platelets (Bld) [#/Vol]325 10*3/qHYaydym393-104WhsucrpxfFisher-Titus Medical Center on above:Order Comment: Specimen Type: BLOOD SPECIMEN Ordering Facility: [facility] Address: [address] [place], [place] [address]Result Comment: Results checked and verified.No clot detected.Performed By: #### 80578-0, 27915-9 #### [facility] [id number] [address] [place], [place] [address]RB (Bld) [#/Vol]5.85 10*6/uLHigh3.90-5.20[facility] on above:Order Comment: Specimen Type: BLOOD SPECIMEN Ordering Facility: [facility] Address: [address] [place], [place] [address]Performed By: #### 11778-5, 43224-7 #### [facility] [id number] [address] [place], [place] [address]W (Bld) [#/Vol]5.65 10*3/uLNormal3.70-11.00[facility] on above:Order Comment: Specimen Type: BLOOD SPECIMEN Ordering Facility: [facility] Address: [address] [place], [place] [address]Performed By: #### 38757-4, 02906-9 #### [facility] [id number] [address] [place] [address] OF AMERICACNOVSPon [id number] Visit (SP) Office (HEM[facility]4) TORIE JOHNSTON ([id number]) 1990 F Date Time Provider Department 06/20/23 2:00 PM FRANCIS MA HEMMD4 During your visit today, we recorded the following information about you: Pulse Respiration Blood pressure Weight 86/minute 20/minute 127/81 106.3 kg Height Last Period 1.6 m 06/17/23 Francis Ma MD 2023 2:44 PM Signed [facility], [facility] Department of Hematologic Oncology and Blood Disorders PATIENT NAME: Torie Crowley [facility] NO: [id number] ATTENDING PHYSICIAN: Francis Ma MD. DATE OF [...] Abs Lymph 1.00 - 4.00 k/uL 1.42 Desoto% % 5.3 Abs [place]oto <0.87 k/uL 0.21 Eosin% % 1.5 Abs [...] in 2018 during ). 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 She was placed on folic acid. [...] baseline, lack of transfusion (more content not included)...NormalTrihealth Bethesda North HospitalComprehensive metabolic 2000 panelon 32-81-5052Siinrzk [Mass/Vol]4.4 g/dLNormal3.9-4.9CPremier Health [facility] Comment on above:Order Comment: Specimen Type: BLOOD SPECIMEN Order[facility] Facility: [facility] Address: [address] [place], [place] [address]Performed By: #### 22044-7, 10240-7 #### [facility] [id number] [address] [place] [address] [place] AMERICAALP [Catalytic activity/Vol] 68 U/CSfsenn68-290FwfjavyrhTrihealth Bethesda North HospitalComment on above:Order Comment: Specimen Type: BLOOD SPECIMEN Order[facility] Facility: [facility] Address: [address] [place], [place] [address]Performed By: #### 40891-6, 90900-7 #### [facility] [id number] [address] [place] [address] [place] AMERICAALT [Catalytic activity/Vol] 28 U/LNormal7-38Tri[facility] Bethesda North HospitalComment on above:Order Comment: Specimen Type: BLOOD SPECIMEN Order[facility] Facility: [facility] Address: [address] [place], [place] [address]Performed By: #### 83388-3, 50433-8 #### [facility] [place] [id number] [address] [place] [address] [place] AMERICAAnion gap [Moles/Vol]10 mmol/LNormal9-18Tri[facility] North HospitalComc.[facility] on above:Order Comment: Specimen Type: BLOOD SPECIMEN Order[facility] Facility[facility] Address: [address] [place], [place] [address]Performed By: #### 08972-1, 43795-2 #### [facility] [place] [id number] [address] [place] [address] [place] AMERICAAST [Catalytic activity/Vol] 22 U/JHceuai49-38RpanaluapFisher-Titus Medical Center on above:Order Comment: Specimen Type: BLOOD SPECIMEN Ordering Facility: [facility] Address: [address] [place], [place] [address]Performed By: #### 49037-4, 94711-2 #### [facility] CLIA [id number] [address] [place] [address] [place] AMERICABilirubin [Mass/Vol]0.4 mg/dLNormal0.2-1.3CParkview Health [facility] Hospital on above:Order Comment: Specimen Type: BLOOD SPECIMEN Ordering Facility: [facility] Address: [address] [place], [place] [address]Performed By: #### 19420-3, 20158-5 #### [facility] CLIA [id number] [address] [place] [address] [place] AMERICACalcium [Mass/Vol]9.1 mg/dL Normal8.5-10.2CParkview Health [facility] Hospital on above:Order Comment: Specimen Type: BLOOD SPECIMEN Order[facility] Facility: [facility] Address: [address] [place], [place] [address]Performed By: #### 95903-4, 06549-7 #### [facility] CLIA [id number] [address] [place] [address] [place] AMERICAChloride [Moles/Vol]106 mmol/MIkbr36-634PhxeyddbhFisher-Titus Medical Center on above:Order Comment: Specimen Type: BLOOD SPECIMEN Order[facility] Facility: [facility] Address: [address] [place], [place] [address]Performed By: #### 48997-1, 65968-4 #### [facility] CLIA [id number] [address] [place] [address] [place] AMERICACO2 [Moles/Vol]25 mmol/L Hxfwzb94-44CcnuvynosFisher-Titus Medical Center on above:Order Comment: Specimen Type: BLOOD SPECIMEN Ordering Facility: [facility] Address: [address] [place], [place] [address]Performed By: #### 24600-2, 80260-5 #### [facility] [id number] [address] [place] [address] [place] AMERICACreatinine [Mass/Vol]0.90 mg/dLNormal0.58-0.96[facility] on above:Order Comment: Specimen Type: BLOOD SPECIMEN Ordering Facility: [facility] Address: [address] [place], [place] [address]Performed By: #### 25958-9, 73572-2 #### [facility] [id number] [address] [place] [address] [place] AMERICACreatinine and Glomerular filtration rate.predicted panel (S/P/Bld)86 mL/min/1.73m???Normal>=60[facility] on above:Order Comment: Specimen Type: BLOOD SPECIMEN Ordering Facility: [facility] Address: [address] [place], [place] [address]Result Comment: Estimated Glomerular Filtration Rate (eGFR) is calculated using the 2020 CKD-EPI cre atinine equation. This equation utilizes serum creatinine, sex, and age as parameters. The creatinine assay has traceable calibration to isotope dilution- mass spectrometry. Refer to KDIGO guidelines for clinical interpretation. In patients with unstable renal function, e.g. those with acute kidney injury, the eGFR may not accurately reflect actual GFR.Performed By: #### 37713-9, 92377-5 #### [facility] [id number] [address] [place] [address] [place] [Mass/Vol]92 mg/dL Konlsc32-52DvodhxzyeFisher-Titus Medical Center on above:Order Comment: Specimen Type: BLOOD SPECIMEN Ordering Facility: [facility] Address: [address] [place], [place] [address]Result Comment: The [place] Diabetes Association (ADA) provides guidance for cutoff [...] Standards of Medical Care in Diabetes 2016, [place] [employer]. Diabetes Care. 2016.39(Suppl 1).Performed By: #### 47603-7, 13203-8 #### [facility] [id number] [address] [place] [address] [place] AMERICAPotassium [Moles/Vol]4.0 mmol/LNormal3.7-5.1CParkview Health [facility] on above:Order Comment: Specimen Type: BLOOD SPECIMEN Ordering Facility: [facility] Address: [address] [place], [place] [address]Performed By: #### 53736-0, 36768-0 #### [facility] [id number] [address] [place] [address] [place] AMERICAProtein [Mass/Vol]7.4 g/dL Normal6.3-8.0[facility] on above:Order Comment: Specimen Type: BLOOD SPECIMEN Ordering Facility: [facility] Address: [address] [place], [place] [address]Performed By: #### 41803-5, 69198-5 #### [facility] [place] [id number] [address] [place] [address] [place] AMERICASodium [Moles/Vol]141 mmol/L Qvuhxf433-922XlapqniezFisher-Titus Medical Center on above:Order Comment: Specimen Type: BLOOD SPECIMEN Ordering Facility: [facility] Address: [address] [place], [place] [address]Performed By: #### 06049-6, 32761-3 #### [facility] [id number] [address] [place] [address] [place] AMERICAUrea nitrogen [Mass/Vol]16 mg/dLNormal7-21[facility] North HospitalComment on above:Order Comment: Specimen Type: BLOOD SPECIMEN Ordering Facility: [facility] Address: [address] [place], [place] [address]Performed By: #### 24456-2, 35371-1 #### [facility] [place] [id number] [address] [place] [address] [place] AMERICAFerritin SerPl-mCncon 32-56-8711Xiytyhyj [Mass/Vol]73.6 ng/tWBkbcrk88.7-205.1CParkview Health [facility] on above:Order Comment: Specimen Type: BLOOD SPECIMEN Ordering Facility: [facility] Address: [address] [place], [place] [address]Performed By: #### 4542-7, 2276-4 #### [facility] [place] [id number] [address] [place] [address] [place] AMERICAHaptoglob SerPl-mCncon 62-41-1859Tcwygiqfmbh [Mass/Vol]66 mg/jINuouhk65-054WlhwckajsTrihealth Bethesda North Hospital Comment on above:Order Comment: Specimen Type: BLOOD SPECIMEN Ordering Facility: [facility] Address: [address] [place], [place] [address]Performed By: #### 4542-7, 2276-4 #### [facility] [place] [id number] [address] [place] [address] [place] AMERICAIron and Iron binding capacity panelon 89-01-9748Qtft [Mass/Vol]66 ug/dRVllnfv22-230LfiwqitjyFisher-Titus Medical Center on above:Order Comment: Specimen Type: BLOOD SPECIMEN Ordering Facility: [facility] Address: [address] [place], [place] [address]Performed By: #### 65366-0, 07394-0 #### [facility] CLIA [id number] [address] [place] [address] [place] AMERICAIron binding capacity [Mass/Vol]352 ug/tZYxxgfq048-761MhraxigkkTrihealth Bethesda North HospitalComment on above:Order Comment: Specimen Type: BLOOD SPECIMEN Ordering Facility: [facility] Address: [address] [place], [place] [address]Performed By: #### 22009-6, 84517-5 #### [facility] [id number] [address] [place] [address] [place] AMERICAIron/TIBC [Molar ratio]18.8 %Xqbeem39.0-57.0[facility] on above:Order Comment: Specimen Type: BLOOD SPECIMEN Ordering Facility: [facility] Address: [address] [place], [place] [address]Performed By: #### 17985-3, 32206-5 #### [facility] [id number] [address] [place] [address] [place] OF AMERICALDH SerPl-cCncon 2023 LDH [Catalytic activity/Vol]193 U/HAtdifz810-534EntubsguhTrihealth Bethesda North Hospital Comment on above:Order Comment: Specimen Type: BLOOD SPECIMEN Ordering Facility: [facility] Address: [address] [place], [place] [address]Performed By: #### 2532-0 #### [facility] [id number] [address] [place] [address] [place] AMERICARetics #on 2023 Reticulocytes (Bld) [#/Vol]0.38031 10*3/uLHigh0.018-0.100[facility] on above:Order Comment: Specimen Type: BLOOD SPECIMEN Ordering Facility: [facility] Address: [address] [place], [place] [address]Performed By: #### 39518-4, 48897-3 #### [facility] [id number] [address] [place] [address] [place] AMERICAReticulocytes (Bld) [#/Vol] on 52-67-8370Idrmvojcuyshp/100 RBC (Bld)2.2 %High0.4-2.0[facility] North HospitalComment on above:Order Comment: Specimen Type: BLOOD SPECIMEN Ordering Facility: [facility] Address: [address] [place], [place] [address]Performed By: #### 28855-8, 88454-0 #### [facility] CLIA [id number] [address] [place], [place] [address]CB AUTO DIFFon 09-20-2022 BASO #0.0 103/ulNormal0.0-0.1The [facility]ittman HospitalComment on above:Performed By: #### CBC ####[facility] Cqabofqj[address] [place], [place] [address]Dr.Yilan ChangBasophils/100 WBC (Bld)0.5 %Normal0.2-2.0The [facility]Rittman HospitalComment on above:Performed By: #### CBC ####[facility] Pbwrmwrj[address] [place], [place] [address]Dr.Yilan ChangEO #0.1 103/ul Normal0.0-0.7The [facility]Rittman HospitalComment on above:Performed By: #### CBC ####[facility] Ssnrievnif[address] [place], [place] [address]Dr. Yilan ChangEosinophils/100 WBC (Bld)1.5 %Normal0.9-7.0The [facility] Comment on above:Performed By: #### CBC ####[facility] Rrrezwhovy[address] [place], [place] [address]Dr.Yilan ChangErythrocyte distribution width (RBC) [Ratio]15.8 %Critically high11.0-15.0The [facility]ittman HospitalComment on above:Performed By: #### CBC ####[facility] Gdbxydizey[address] [place], [place] [address]Dr.Yilan ChangHematocrit (Bld) [Volume fraction]34.1 % Critically low36.0-48.0The [facility]Rittman HospitalComment on above:Performed By: #### CBC ####[facility] [address] [place] [address]Dr. Zuly ChangHemoglobin (Bld) [Mass/Vol]10.1 g/dLCritically low12.0-16.0The [facility]ittman HospitalComment on above:Performed By: #### CBC ####[facility] Znrjeluudt[address] [place], [place] [address]Dr.Lolalan ChangIG #0.01 10e3/ulNormal0.00-0.03The [facility]ittman HospitalComment on above:Performed By: #### CBC ####[facility] Nnbpzsnbki[address] [place], [place] [address]Dr. Zuly ChangIG %0.2 %Normal0.0-0.5The [facility]Rittman HospitalComment on above:Performed By: #### CBC ####[facility] Lqsbwqwunz[address] [place], [place] [address]Dr.Lolacuauhtemoc ChangLYMPH #1.6 103/ulNormal1.2-3.8The [facility] Comment on above:Performed By: #### CBC ####[facility] Vbkemtdagy[address] [place], [place] [address]Dr.Zuly AparicioLymphocytes/100 WBC (Bld)39.2 %Edtyny63.5-60.0The [facility]ittman HospitalComment on above:Performed By: #### CBC ####[facility] Jodyhwlgyb[address] [place], [place] [address]Dr. Zuly AparicioMANUAL DIFF REQNONormalThe [facility]-Rittman HospitalComment on above: Performed By: #### CBC ####[facility] Wmdpwgqdqc[address] [place], [place] [address]Dr.Zuly AparicioH (RBC) [Entitic mass]17.7 pg Critically low26.7-34.0The [facility] HospitalComment on above:Performed By: #### CBC ####[facility] Pycplduhov45[address] [place], [place] [address]Dr. Zuly AparicioMCHC (RBC) [Mass/Vol]29.6 g/dLCritically low29.9-35.2The [facility] HospitalComment on above:Performed By: #### CBC ####[facility] Iuxuozkcvn[address] [place], [place] [address]Dr.Zuly AparicioMCV (RBC) [Entitic vol]59.7 fLCritically low81.0-99.0The [facility] HospitalComment on above:Performed By: #### CBC ####[facility] Trllglfoup[address] [place], [place] [address]Dr.Zuly AparicioMONO #0.3 103/ulNormal0.3-0.8The [facility] HospitalComment on above:Performed By: #### CBC ####[facility] Sucyoratrl[address] [place], [place] [address]Dr.Zuly AparicioMonocytes/100 WBC (Bld)6.5 %Normal1.7-12.0The [facility] HospitalComment on above:Performed By: #### CBC ####[facility] Tgbwpsekkd[address] [place], [place] [address]Dr.Zuly AparicioNEUT #2.1 103/ulNormal1.4-6.5The [facility] HospitalComment on above:Performed By: #### CBC ####[facility] Jcueacgwkt[address] [place], [place] [address]Dr.Zuly AparicioNeutrophils/100 WBC (Bld)52.1 %Normal 43.0-75.0The [facility] HospitalComment on above:Performed By: #### CBC ####[facility] Aoxdtpbluj[address] [place], [place] [address]Dr. Zuly AparicioPlatelet mean volume (Bld) [Entitic vol]10.0 fLNormal9.5-13.5The [facility] HospitalComment on above:Performed By: #### CBC ####[facility] Oubmlkczhm[address] [place], [place] [address]DrPeter AparicioPLT333 103/ul Kvvkvn924-786Iis [facility]ittman HospitalComment on above:Performed By: #### CBC ####[facility] Uyfcijljwt[address] [place], [place] [address]DrNikia AparicioRBC5.71 106/ulCritically high4.20-5.40The [facility]ittman HospitalComment on above:Performed By: #### CBC ####[facility] [address] [place] [address]DrPeter AparicioWBC4.0 103/ulNormal4.0-11.0The [facility]ittman HospitalComment on above:Performed By: #### CBC ####[facility] [address] [place] [address]DrPeter ApraicioFREE T4on 84-77-1134Myrj T4 [Mass/Vol]1.11 ng/dLNormal0.76-1.46The [facility] Comment on above:Performed By: #### JEFERSON REECE #### [facility] [address] [place] [address] Dr. Zuly Solo 46-26-9618Dsxy [Mass/Vol]89.0 ug/vQBodznb65.0-170.0The [facility]ittman HospitalComment on above:Performed By: #### JEFERSON REECE #### [facility] [address] [place] [address] Dr. Zuly Gonzalez 14(COMP METB)on 19-72-6085Yhnuzvp [Mass/Vol]3.7 g/dLNormal 3.4-5.0The [facility]ittman HospitalComment on above:Performed By: #### CHAYITO REECERO #### [facility] [address] [place] [address] Dr. Zuly AparicioAlbumin/Globulin [Mass ratio]1.0 {ratio}NormalThe [facility]-Rittman HospitalComment on above:Performed By: #### CHAYITO REECERO #### [facility] [address] [place] [address] Dr. Zuly Burrell [Catalytic activity/Vol]63 U/YMlofdh68-859Cpt [facility] HospitalComment on above:Performed By: #### CHAYITO REECERO #### [facility] [address] [place] [address] Dr. Yilan ChangALT [Catalytic activity/Vol]50 U/LGevcom77-47Bmq [facility] HospitalComment on above:Performed By: #### JEFERSON REECE #### [facility] [address] [place] [address] Dr. Zluy AparicioAnion gap [Moles/Vol]10.4 mmol/LNormalThe [facility] Comment on above:Performed By: #### JEFERSON REECE #### [facility] [address] [place] [address] Dr. Zuly AparicioAST [Catalytic activity/Vol]24 U/GIvbzgl92-10Fev [facility] HospitalComment on above:Performed By: #### JEFERSON REECE #### [facility] [address] [place] [address] Dr. Zuly AparicioBilirubin [Mass/Vol]0.5 mg/dLNormal0.2-1.0[facility] Comment on above:Performed By: #### CHAYITO REECERO #### [facility] [address] [place] [address] Dr. Zuly AparicioCalcium [Mass/Vol]8.8 mg/dLNormal8.5-10.1[facility] Comment on above:Performed By: #### JEFERSON REECE #### [facility] [address] [place] [address] Dr. Zuly AparicioChloride [Moles/Vol]108 mmol/LCritically njsl29-495Wak [facility] HospitalComment on above:Performed By: #### JEFERSON REECE #### [facility] [address] [place] [address] Dr. Zuly AparicioCO2 [Moles/Vol]27.5 mmol/YOpjtrp16.0-32.0[facility] Comment on above:Performed By: #### JEFERSON REECE #### [facility] [address] [place] [address] Dr. Zuly AparicioCreatinine [Mass/Vol]0.94 mg/dLNormal0.55-1.02The [facility]itt[facility] HospitalComment on above:Performed By: #### JEFERSON REECE #### [facility] [address] [address] [address] Zuly AlGFR-AF BULGARIAN>60Normal>=60The [facility]ittman HospitalComment on above:Performed By: #### SHANELL UMICRO #### [facility] [address] [address] [address] Zuly AlGFR-NON AF BULGARIAN>60Normal>=60The [facility]itt[facility] HospitalComment on above:Performed By: #### SHANELL UMICRO #### [facility] [address] [address] [address] Zuly AparicioGlobulin (S) [Mass/Vol]3.7 g/dLNormalThe [facility]itt[facility] HospitalComment on above:Performed By: #### SHANELL UMICRO #### [facility] [address] [place] [address] Dr. Zuly AparicioGlucose [Mass/Vol]83 mg/gMHopzgt78-534AfxRegional Medical Center Comment on above:Performed By: #### SHANELL UMICRO #### [facility] [address] [address] [address] Zuly AparicioPotassium [Moles/Vol]3.9 mmol/LNormal3.5-5.1The [facility] Comment on above:Performed By: #### SHANELL UMICRO #### [facility] [address] [address] [address] Zuly AparicioProtein [Mass/Vol]7.4 g/dLNormal6.4-8.2The [facility] Comment on above:Performed By: #### SHANELL UMICRO #### [facility] [address] [address] [address] Zuly AparicioSodium [Moles/Vol]142 mmol/CZijnfs083-294GvvRegional Medical Center Comment on above:Performed By: #### SHANELL UMICRO #### [facility] [address] [address] [address] Zuly AparicioUrea nitrogen [Mass/Vol]14.0 mg/dLNormal7.0-18.0[facility] CenterComment on above:Performed By: #### SHANELL UMICRO #### [facility] [address] [place] [address] Dr. Zuly Luque nitrogen/Creatinine [Mass ratio]14.9 mg/mgNoLicking Memorial HospitalComment on above:Performed By: #### JEFERSON REECE #### [facility] [address] [place] [address] Dr. Zuly OvalleHojulio 42-31-4676FRO6.491 uIU/mLNormal0.358-3.740The [facility]ittman HospitalComment on above:Performed By: #### CHAYITO REECERO #### [facility] [address] [place] [address] Dr. Zuly AparicioVC INJ SCL MILTON RAYON CONER VEINSon 53-46-9667DA INJ SCL MILTON RAYON CONER VEINS Patient: TORIE JOHNSTON Exam Date: 09/04/2022 : 1990 Gender:F Ordering : DR SADI GLEZ M.D. Admission #: [id number] Family : Order #: [id number] CLICK HERE TO VIEW EXAM RADIOLOGY REPORT [...] successful sclerotherapy as described Dictated by: Jose Urias M.D. on 09/04/2022 at 11:51 Approved by: oJse Urais M.D. on 09/04/2022 at 12:00[facility] HospitalCovid-19 PCR (CVDTB)on 37-78-9244PXBM-CoV-2 (COVID-19) RNA BORIS+probe Ql (Unsp spec)Not detectedNormalNOT DETECTEDPomerene Hospital on above: Result Comment: This test is not yet approved or cleared by the [place] FDA. When there are no FDA-approved or cleared tests available, and other criteria are met, FDA can make tests available under an emergency access mechanism called an Emergency Use Authorization (EUA). The EUA for this test is supported by the [place] of Health and Human Service's (HHS's) declaration [...] of clinical signs and symptoms consistent with SARS-CoV-2.Performed By: #### TSH #### [facility] [address] [place] [address] Dr. Zuly Tavarez AND B AGon 93-77-7070KCKAAOCPISFJX [facility] on above:Result Comment: Negative for Flu A protein angiten. Infection due to Flu A cannot be ruled out. FluA angiten in the sample may be below the detection limit of the test.Performed By: #### TSH #### [facility] [address] [place] [address] Dr. Zuly MezaUBNEGHSJOSHUA [facility] on above: Result Comment: Negative for Flu B protein antigen. Infection due to Flu B cannot be ruled out. FluB antigen in the sample may be below the detection limit of the test.Performed By: #### TSH #### [facility] [address] [place] [address] Dr. Zuly Tavarez AGNegativeNormalNEGATIVE SEE COMMENTThe [facility] Hospitalment on above:Performed By: #### TSH #### [facility] [address] [place] [address] Dr. Zuly AparicioINFLUENZA B AGNegativeNormalNEGATIVE SEE COMMENTThe [facility]itt[facility] HospitalComment on above:Performed By: #### TSH #### [facility] [address] [place] [address] Dr. Zuly AparicioSYMPTOMATIC COVID-19 ANTIGENon 29-22-5420NCI StatementSEE BELOW NormalThe [facility] on above:Result Comment: This test has not been FDA [...] declaration is terminated or authorization is revoked sooner.Performed By: #### CVDAGS #### [facility] [address] [place] [address] Dr. Zuly Moreno-CoV-2 (COVID-19) RNA BORIS+probe Ql (Unsp spec)NegativeNormal NEGATIVEThe [facility]ittman HospitalComment on above:Performed By: #### CVDAGS #### [facility] [address] [place] [address] Dr. Zuly AparicioXR CHEST 1 Von 50-61-9015ZG CHEST 1 VEXAMINATION: XR CHEST 1 V HISTORY: COUGH , shortness of [...] process. Stable chest. Electronically authenticated by: JOSE URIAS Date: 2022-08-27 17:17[facility] HospitalVC CONSULT FOLLOWUPon [id number] CONSULT FOLLOWUPPatient: TORIE JOHNSTON Exam Date: 08/21/2022 : 1990 Gender:F Ordering : DR SADI GLEZ M.D. Admission #: [id number] Family : Order #: [id number] CLICK HERE TO VIEW EXAM RADIOLOGY REPORT [...] physical exam and consultation Dictated by: Sadi Glez MD on 08/21/2022 at 10:02 Approved by: Sadi Glez MD on 08/21/2022 at 11:18[facility] HospitalVC EXT VENOUS RT LIMITEDon [id number] EXT VENOUS RT LIMITEDPatient: TORIE JOHNSTON Exam Date: 08/21/2022 : 1990 Gender:F Ordering : DR SADI GLEZ M.D. Admission #: [id number] Family : Order #: [id number] CLICK HERE TO VIEW EXAM RADIOLOGY REPORT [...] of treated varicose veins. Dictated by: Sadi Glez MD on 08/21/2022 at 09:41 Approved by: Sadi Glez MD on 08/21/2022 at 09:43[facility] HospitalVC INJ FOAM SCLERO W US MLTIon [id number] INJ FOAM SCLERO W US MLTIPatient: TORIE JOHNSTON Exam Date: 08/16/2022 : 1990 Gender:F Ordering : DR SADI GLEZ M.D. Admission #: [id number] Family : Order #: [id number] CLICK HERE TO VIEW EXAM RADIOLOGY REPORT [...] Varithena(r) 2. Intraoperative ultrasound guidance Physician: Jose Urais M.D. Anesthesia: None. Indications for Procedure: 30 [...] PERSONNEL: Ketan Haley R.N. Dictated by: Jose Urias M.D. on 08/16/2022 at 11:53 Approved by: Jose Urias M.D. on 08/16/2022 at 11:58[facility] W MANUAL DIFFon [id number] LYMPH #0.32 103/ulNoLicking Memorial HospitalComment on above:Performed By: #### TSH #### [facility] [address] [place] [address] Dr. Zuly MendozaYPICAL LYMPH %3 %NormalThe [facility]ittman HospitalComc.[facility] on above: Performed By: #### TSH #### [facility] [address] [place] [address] Dr. Zuly Nogueira #0.0 103/ulNormal0.0-0.3The [facility]-Rittman HospitalComment on above:Performed By: #### TSH #### [facility] [address] [place] [address] Dr. Zuly Nogueira %0 %Normal0-5The [facility]ittman HospitalComc.[facility] on above:Performed By: #### TSH #### [facility] [address] [place] [address] Dr. Zuly Kaplan #0.00 103/ulNormal0.00-0.10The [facility]-Rittman HospitalComment on above:Performed By: #### TSH #### [facility] [address] [address] [address] Zuly Kaplan %0.0 %Critically low0.2-2.0The [facility]-Rittman HospitalComment on above:Performed By: #### TSH #### [facility] [address] [place] [address] Dr. Zluy Arteaga #NormalThe [facility] HospitalComment on above:Performed By: #### TSH #### [facility] [address] [address] [address] Zuly Arteaga %NormalThe [facility] HospitalComment on above:Performed By: #### TSH #### [facility] [address] [address] [address] Zuly AparicioCORRECTED WBCNormal4.0-11.0The [facility]-Rittman HospitalComment on above: Performed By: #### TSH #### [facility] [address] [place] [address] Dr. Zuly Saeed #0.10 103/ulNormal0.00-0.70The [facility]-Rittman HospitalComment on above:Performed By: #### TSH #### [facility] [address] [address] [address] Zuly Saeed%1.0 %Normal0.9-7.0The [facility]-Rittman HospitalComment on above: Performed By: #### TSH #### [facility] [address] [place] [address] Dr. Zuly AparicioHCT34.3 %Critically low36.0-48.0The [facility]-Rittman HospitalComment on above:Performed By: #### TSH #### [facility] [address] [place] [address] Dr. Zuly AparicioHGB10.6 g/dlCritically low12.0-16.0The [facility]ittman HospitalComment on above:Performed By: #### TSH #### [facility] [address] [place] [address] Dr. Zuly OharaHM #0.32 103/ulCritically low1.20-3.80[facility] on above:Performed By: #### TSH #### [facility] [address] [place] [address] Dr. Zuly Roque%3.0 %Critically low20.5-60.0The [facility]-Rittman HospitalComment on above:Performed By: #### TSH #### [facility] [address] [place] [address] Dr. Zuly PeñaH18.2 pgCritically low26.7-34.0The [facility]-Rittman HospitalComment on above:Performed By: #### TSH #### [facility] [address] [place] [address] Dr. Zuly PeñaHC30.9 g/nbYxffvi31.9-35.2The [facility]-Rittman HospitalComment on above:Performed By: #### TSH #### [facility] [address] [place] [address] Dr. Zuly PeñaV59.0 fLCritically low81.0-99.0The [facility]ittman HospitalComment on above:Performed By: #### TSH #### [facility] [address] [place] [address] Dr. Zuly AparicioMETAMYELOCYTE #NormalThe [facility]Rittman HospitalComment on above: Performed By: #### TSH #### [facility] [address] [place] [address] Dr. Zuly AparicioMETAMYELOCYTE %NormalThe [facility]ittman HospitalComment on above: Performed By: #### TSH #### [facility] [address] [place] [address] Dr. Zuly ApariicoMICROCYTOSIS3+NormalThe [facility]-Rittman HospitalComment on above: Performed By: #### TSH #### [facility] [address] [place] [address] Dr. Zuly ClarkOM#0.32 103/ulNormal0.30-0.80The [facility]-Rittman HospitalComment on above:Performed By: #### TSH #### [facility] [address] [place] [address] Dr. Zuly Hollingsworth%3.0 %Normal1.7-12.0The [facility]-Rittman HospitalComment on above: Performed By: #### TSH #### [facility] [address] [address] [address] Zuly AparicioMPV10.6 fLNormal9.5-13.5The [facility]-Rittman HospitalComment on above: Performed By: #### TSH #### [facility] [address] [address] [address] Zuly McgrathOCYTE #NormalThe [facility]-Rittman HospitalComment on above:Performed By: #### TSH #### [facility] [address] [address] [address] Zuly McgrathOCYTE %NormalThe [facility]ittman HospitalComment on above:Performed By: #### TSH #### [facility] [address] [place] [address] Dr. Zuly AparicioNRBCProtestant Deaconess HospitalComment on above:Performed By: #### TSH #### [facility] [address] [place] [address] Dr. Zuly SmithOCYTESSLIGHTProtestant Deaconess HospitalComment on above: Performed By: #### TSH #### [facility] [address] [place] [address] Dr. Zuly OliveiraT290 103/naIhmaqh753-441Sst [facility]man HospitalComment on above: Performed By: #### TSH #### [facility] [address] [place] [address] Dr. Zuly AparicioRBC5.81 106/ulCritically high4.20-5.40The [facility] Comment on above:Performed By: #### TSH #### [facility] [address] [address] [address] Zuly AparicioRDW15.4 %Critically high11.0-15.0The [facility]ittman HospitalComment on above:Performed By: #### TSH #### [facility] [address] [address] [address] Zuly Zhu #9.45 103/ulCritically high1.40-6.50[facility] Comment on above:Performed By: #### TSH #### [facility] [address] [address] [address] Zuly Zhu %90.0 %Critically high43.0-75.0The [facility]ittman HospitalComment on above:Performed By: #### TSH #### [facility] [address] [address] [address] Zuly AparicioTOXIC GRANULATIONSLIGHTNormalThe [facility] HospitalComment on above:Performed By: #### TSH #### [facility] [address] [address] [address] Zuly AparicioWBC10.5 103/ulNormal4.0-11.0The [facility]ittman HospitalComment on above:Performed By: #### TSH #### [facility] [address] [address] [address] Zuly AparicioCULTURE URINEon [id number] URINECulture Observations: LIGHT GROWTH OF MIXED GENITAL JI. NO POTENTIAL PATHOGENS SEEN.NormalThe [facility]ittman HospitalComment on above:Performed By: #### URCX ####[facility] [address] [address]Dr. Zuly AparicioCovid-19 PCR (CVDTBH)on 05-72-2589SLNE-CoV-2 (COVID-19) RNA BORIS+probe Ql (Unsp spec)Not detectedNormalNOT DETECTEDThe [facility] Hospitalment on above:Result Comment: This test is not yet approved or cleared by the [place] FDA. When there are no FDA-approved or cleared tests available, and other criteria are met, FDA can make tests available under an emergency access mechanism called an Emergency Use Authorization (EUA). The EUA for this test is supported by the [employer] Specialist of Health and Human Service's (HHS's) declaration [...] of clinical signs and symptoms consistent with SARS-CoV-2.Performed By: #### TSH #### [facility] [address] [place] [address] Dr. Zuly Milian URINE PROFILEon 67-76-0770Gyyqvlqan Ql (U)NegativeNormal NEGATIVERegional Medical CenterComment on above:Performed By: #### TSH #### [facility] [address] [place] [address] Dr. Zuly Carreonarity (U)CLEARNormalCLEARRegional Medical CenterComment on above: Performed By: #### TSH #### [facility] [address] [place] [address] Dr. Zuly Landaverde (U)YELLOWNormalYELLOWTogus VA Medical Centerment on above: Performed By: #### TSH #### [facility] [address] [place] [address] Dr. Zuly Wooten micrscopic examination will be performed if indicated. NormalRegional Medical CenterComc.s. [facility] on above:Performed By: #### TSH #### [facility] [address] [place] [address] Dr. Zuly AparicioGlucose Ql (U)NegativeNormalNEGATIVEPomerene Hospital on above:Performed By: #### TSH #### [facility] [address] [place] [address] Dr. Zuly AparicioHemoglobin Ql (U)NegativeNormalNEGATIVEAshtabula [facility] on above:Performed By: #### TSH #### [facility] [address] [place] [address] Dr. Zuly AparicioKetones Ql (U)TRACEAbnormalNEGATIVEPomerene Hospital on above:Performed By: #### TSH #### [facility] [address] [place] [address] Dr. Zuly AparicioLEUKOCYTESTRACEAbnormalNEGATIVEPomerene Hospital on above:Performed By: #### TSH #### [facility] [address] [place] [address] Dr. Zuly Ga Ql (U)NegativeNormalNEGATIVEThe [facility]itt[facility] HospitalComment on above:Performed By: #### TSH #### [facility] [address] [place] [address] Dr. Zuly ApariciopH (U)5.5 [pH]Normal5-9The [facility]ittman HospitalComment on above: Performed By: #### TSH #### [facility] [address] [place] [address] Dr. Zuly AparicioSPEC GRAVITY1.426Nqblfo1.005-<=1.025The [facility]ittman HospitalComment on above:Performed By: #### TSH #### [facility] [address] [place] [address] Dr. Zuly Degroot PROTEINNegativeNormalNEGATIVE/ TRACEThe [facility] Comment on above:Performed By: #### TSH #### [facility] [address] [place] [address] Dr. Zuly Rhodes MICRO INDINDICATEDNormalThe [facility]ittman HospitalComment on above: Performed By: #### TSH #### [facility] [address] [place] [address] Dr. Zuly Staton Qn (U)1.0 {Isamar'U}/dLNormal0.2 - 1.0The [facility]ittman HospitalComment on above:Performed By: #### TSH #### [facility] [address] [place] [address] Dr. Zuly Tavarez AND Gurmeet AGon 12-01-0977PFNOVRJYV A AGNegativeNormal NEGATIVE SEE COMMENTThe [facility]ittman HospitalComment on above:Performed By: #### INFLUAB #### [facility] [address] [place] [address] Dr. Zuly Morgan B AGNegativeNormalNEGATIVE SEE COMMENTThe [facility]ittman HospitalComment on above:Performed By: #### INFLUAB #### [facility] [address] [place] [address] Dr. Zuly AparicioINTERNAL CONTROLSWithin Normal LimitsNormalWithin Normal Limits The [facility]ittman HospitalComment on above:Performed By: #### INFLUAB #### [facility] [address] [address] [address] Zuly Kidd HCG QUALon [id number], QUALNegativeNormalNEGATIVE The [facility]ittman HospitalComment on above:Performed By: #### TSH #### [facility] [address] [place] [address] Dr. Zuly AparicioPROF 14(COMP METB)on 01-94-0489Tawbkpq [Mass/Vol]3.6 g/dLNormal 3.4-5.0The [facility]ittman HospitalComment on above:Performed By: #### CMP #### [facility] [address] [place] [address] Dr. Zuly AparicioAlbumin/Globulin [Mass ratio]0.9 {ratio}NormalThe [facility]ittman HospitalComment on above:Performed By: #### CMP #### [facility] [address] [place] [address] Dr. Zuly Burrell [Catalytic activity/Vol]88 U/HOjekfe30-806Kig [facility] HospitalComment on above:Performed By: #### CMP #### [facility] [address] [place] [address] Dr. Zuly Evans [Catalytic activity/Vol]52 U/YZdfvmu17-42Mmc [facility] HospitalComment on above:Performed By: #### CMP #### [facility] [address] [place] [address] Dr. Zuly Calvert gap [Moles/Vol]13.4 mmol/LNormalThe [facility] Comment on above:Performed By: #### CMP #### [facility] [address] [place] [address] Dr. Zuly Aguilar [Catalytic activity/Vol]29 U/TNmfirf31-56Enc [facility] HospitalComment on above:Performed By: #### CMP #### [facility] [address] [place] [address] Dr. Zuly AparicioBilirubin [Mass/Vol]1.2 mg/dLCritically high0.2-1.0The [facility] HospitalComment on above:Performed By: #### CMP #### [facility] [address] [address] [address] Zuly AparicioCalcium [Mass/Vol]8.7 mg/dLNormal8.5-10.1[facility] Comment on above:Performed By: #### CMP #### [facility] [address] [address] [address] Zuly AparicioChloride [Moles/Vol]101 mmol/APxjqjf54-167Rib [facility] Comment on above:Performed By: #### CMP #### [facility] [address] [address] [address] Zuly AparicioCO2 [Moles/Vol]25.5 mmol/MFhxwzx76.0-32.0[facility] Comment on above:Performed By: #### CMP #### [facility] [address] [address] [address] Zuly AparicioCreatinine [Mass/Vol]1.07 mg/dLCritically high0.55-1.02[facility] Medical CenterComment on above:Performed By: #### CMP #### [facility] [address] [address] [address] Zuly AlGFR-AF BULGARIAN>60Normal>=60The [facility] HospitalComment on above:Performed By: #### CMP #### [facility] [address] [address] [address] Zuly AlGFR-NON AF LORNASFM43 mL/min/1.90r2Nnafsaubjd low>=60The [facility] HospitalComment on above:Performed By: #### CMP #### [facility] [address] [address] [address] Zuly AparicioGlobulin (S) [Mass/Vol]4.0 g/dLNormalThe [facility] HospitalComment on above:Performed By: #### CMP #### [facility] [address] [address] [address] Zuly AparicioGlucose [Mass/Vol]111 mg/dLCritically uzxm27-633Vyk [facility] HospitalComment on above:Performed By: #### CMP #### [facility] [address] [address] [address] Zuly AparicioPotassium [Moles/Vol]3.9 mmol/LNormal3.5-5.1The [facility] Comment on above:Performed By: #### CMP #### [facility] [address] [address] [address] Zuly AparicioProtein [Mass/Vol]7.6 g/dLNormal6.4-8.2The [facility] Comment on above:Performed By: #### CMP #### [facility] [address] [address] [address] Zuly AparicioSodium [Moles/Vol]136 mmol/STdfbxt205-607Iix [facility] Comment on above:Performed By: #### CMP #### [facility] [address] [address] [address] Zuly AparicioUrea nitrogen [Mass/Vol]11.0 mg/dLNormal7.0-18.0The [facility] Hospitalment on above:Performed By: #### CMP #### [facility] [address] [address] [address] Zuly Luque nitrogen/Creatinine [Mass ratio]10.3 mg/mgProtestant Deaconess HospitalComment on above:Performed By: #### CMP #### [facility] [address] [address] [address] Zuly AaronREPT SCREENon [id number] SCREEN APositiveAbnormalNEGATIVE The [facility] HospitalComment on above:Performed By: #### ERUR UMICRO #### [facility] [address] [address] [address] Zuly Yost MICROSCOPIC ONLYon [id number]IENN SEENRegional Medical CenterComc.s. [facility] on above:Performed By: #### TSH #### [facility] [address] [address] [address] Zuly Fletcher identified Cx Nom (U)INDICATEDNoLicking Memorial HospitalComment on above:Performed By: #### TSH #### [facility] [address] [address] [address] Zuly Rayo SEENNormalNONE SEENPomerene Hospital on above:Performed By: #### TSH #### [facility] [address] [address] [address] Zuly AparicioCrystals LM Nom (Urine sed)NONE SEENNormalNONE SEENThe [facility] HospitalComc.s. [facility] on above:Performed By: #### TSH #### [facility] [address] [address] [address] Caruso ChangEpithelial cells LM Ql (Urine sed)MANYAbnormalNONE SEEN /RAREThe [facility] on above:Performed By: #### TSH #### [facility] [address] [place] [address] Dr. Zuly DaiCOUSDAVIAN SEENNormalNONE SEENPomerene Hospital on above:Performed By: #### TSH #### [facility] [address] [place] [address] Dr. Zuly AparicioZmrsnZND1-5Xqbemdsd0-2LmjPomerene Hospital on above:Performed By: #### TSH #### [facility] [address] [place] [address] Dr. Zuly AparicioWBC5-10AbnormalNONE SEENPomerene Hospital on above: Performed By: #### TSH #### [facility] [address] [place] [address] Dr. Zuly AparicioXR CHEST 1 Von [id number] CHEST 1 VCLINICAL HISTORY: Cough COMPARISON: Chest radiograph 12/20/2021 FINDINGS: Portable AP view of the chest obtained. Cardiomediastinal silhouette is normal. Lungs are clear, no evidence of infiltrate, suspicious nodule, or mass. No evidence of significant pleural fluid on this portable projection. No acute bony abnormality. IMPRESSION: No acute abnormality. Electronically authenticated by: PAKO JERRY Date: 2022-05-16 05:03Pro[facility]aconess HospitalAMYLASEon [id number] [Catalytic activity/Vol]41 U/L Ohibsf64-250Xjy [facility] HospitalComment on above:Performed By: #### ANA ABERNATHY #### [facility] [address] [address] [address] Zuly MccormackC AUTO DIFFon [id number] #0.0 103/ulNormal0.0-0.1The [facility] HospitalComment on above:Performed By: #### CBC ####[facility] [address] [address]Dr.Zuyl AparicioBasophils/100 WBC (Bld)0.4 %Normal0.2-2.0The [facility] HospitalComc.s. [facility] on above:Performed By: #### CBC ####[facility] [address] [address]Dr.Zuly ChangEO #0.2 103/ulNormal0.0-0.7The [facility] HospitalComment on above:Performed By: #### CBC ####[facility] Uzxle[address] [place], [place] [address]Dr.Zuly ChangEosinophils/100 WBC (Bld)3.2 %Normal 0.9-7.0The [facility] HospitalComc.s. [facility] on above:Performed By: #### CBC ####[facility] [address] [address]DrPeter Aparicio Erythrocyte distribution width (RBC) [Ratio]15.7 %Critically high11.0-15.0The [facility] HospitalComment on above:Performed By: #### CBC ####[facility] Ujq[address]mi[address] [place], [place] [address]Dr.Zuly AparicioHematocrit (Bld) [Volume fraction]33.1 %Critically low36.0-48.0The [facility] HospitalComment on above:Performed By: #### CBC ####[facility] Xsii[address]ec[address] [place], [place] [address]DrPeter AparicioHemoglobin (Bld) [Mass/Vol]10.3 g/dL Critically low12.0-16.0The [facility] HospitalComment on above:Performed By: #### CBC ####[facility] [address] [address]Dr. Zuly AparicioIG #0.01 10e3/ulNormal0.00-0.03The [facility] HospitalComment on above: Performed By: #### CBC ####[facility] [address] [address]Dr.Lolacuauhtemoc MarkusIG %0.2 %Normal0.0-0.5The [facility]itt[facility] HospitalComment on above:Performed By: #### CBC ####[facility] Amrsegbseb[address] [place], [place] [address]Dr.Zuly AparicioLYMPH #1.8 103/ulNormal1.2-3.8The [facility]itt[facility] HospitalComment on above:Performed By: #### CBC ####[facility] Jkkuznezvh[address] [place], [place] [address]Dr. Zuly AparicioLymphocytes/100 WBC (Bld)34.5 %Awkjvv80.5-60.0The [facility] Comment on above:Performed By: #### CBC ####[facility] Rtziawtfkf[address] [place], [place] [address]Dr.Zuly AparicioMANUAL DIFF REQNONormalThe [facility] HospitalComment on above:Performed By: #### CBC ####[facility] Zwkvqwlpmu[address] [place], [place] [address]Dr.Zuly AparicioH (RBC) [Entitic mass]18.5 pgCritically low26.7-34.0The [facility] HospitalComment on above:Performed By: #### CBC ####[facility] Awvwwqfpqc[address] [place], [place] [address]Dr.Zuly AparicioMCHC (RBC) [Mass/Vol]31.1 g/dLNormal 29.9-35.2The [facility] HospitalComment on above:Performed By: #### CBC ####[facility] Oiotqwyfwg[address] [place], [place] [address]Dr. Zuly AparicioV (RBC) [Entitic vol]59.3 fLCritically low81.0-99.0The [facility] HospitalComment on above:Performed By: #### CBC ####[facility] [address] [address]Dr.Zuly AparicioMONO #0.3 103/ulNormal0.3-0.8The [facility] HospitalComment on above:Performed By: #### CBC ####[facility] Udqknjsplh[address] [place], [place] [address]Dr. Zuly AparicioMonocytes/100 WBC (Bld)5.9 %Normal1.7-12.0[facility] Comment on above:Performed By: #### CBC ####[facility] Nutljewtpo[address] [place], [place] [address]Dr.Zuly AparicioNEUT #2.9 103/ulNormal1.4-6.5 [facility] Medical CenterComment on above:Performed By: #### CBC ####[facility] W[address]ceystga[address] [place], [place] [address]Dr.Zuly Aparicio Neutrophils/100 WBC (Bld)55.8 %Eksthg11.0-75.0The [facility]itt[facility] HospitalComment on above:Performed By: #### CBC ####[facility] Scnyoaqtqz[address] [place], [place] [address]Dr.Zuly AparicioPlatelet mean volume (Bld) [Entitic vol] 10.1 fLNormal9.5-13.5The [facility] HospitalComment on above:Performed By: #### CBC ####[facility] Lbsc[address]cob[address] [place], [place] [address]Dr. Zuly OyibkNBK856 103/qhBmbzyr443-119Osv [facility] HospitalComment on above: Performed By: #### CBC ####[facility] Ruincvvfnc[address] [place], [place] [address]Dr.Zuly MarkusRBC5.58 106/ulCritically high4.20-5.40 [facility] Medical CenterComment on above:Performed By: #### CBC ####[facility] Kdrnbyfs[address] [place], [place] [address]Dr.Lolalan ChangWBC5.3 103/ulNormal4.0-11.0The [facility]itt[facility] HospitalComment on above:Performed By: #### CBC ####[facility] [address] [place], [place] [address]GkNikia AparicioCT ABD/PELVIS WO CONon [id number] ABD/PELVIS WO CONEXAMINATION: CT ABD/PELVIS WO CON, 04/19/2022 7:51 PM [...] is not visualized. Electronically authenticated by: JOSE RICKETTS Date: 2022-04-19 21:52NoCleveland Clinic Children's [facility] for [facility] URINE PROFILEon [id number] Ql (U)NegativeNormal NEGATIVEMarion Hospital HospitalComment on above:Performed By: #### ERUR, PREGU ####[facility] W[address]btkidbr[address] [place], [place] [address]Dr. Yilan ChangClarity (U)CLEARNormalCLEARMarion Hospital HospitalComment on above: Performed By: #### ERUR, PREGU ####[facility] Govidzgokd[address] [place], [place] [address]Dr. Yilan ChangColor (U)LT. YELLOWNormalYELLOWMarion Hospital HospitalComment on above:Performed By: #### ERUR, PREGU ####[facility] Tymz[address]jx[address] [place], [place] [address]Dr. Yilan Aparicio ERUAHDA micrscopic examination will be performed if indicated.NormalThe [facility] HospitalComment on above:Performed By: #### ERUR, PREGU ####[facility] [address]ynzr[address] [place], [place] [address]Dr. Yilan ChangGlucose Ql (U) NegativeNormalNEGATIVEMarion Hospital HospitalComment on above:Performed By: #### ERUR, PREGU ####[facility] Rdrhnmjnwr[address] [place], [place] [address]Dr. Yilan ChangHemoglobin Ql (U)NegativeNormalNEGATIVERegional Medical Center Comment on above:Performed By: #### ERUR, PREGU ####[facility] Tcvelseclo[address] [place], [place] [address]Dr. Yilan ChangKetones Ql (U) NegativeNormalNEGATIVEMarion Hospital HospitalComment on above:Performed By: #### ERUR, PREGU ####[facility] Tevdzrnpnk[address] [place], [place] [address]Dr. Yilan ChangLEUKOCYTESNegativeNormalNEGATIVEMarion Hospital HospitalComment on above:Performed By: #### ERUR, PREGU ####[facility] Ejhzvfjzfa[address] [place], [place] [address]Dr. Yilan ChangNitrite Ql (U)NegativeNormal NEGATIVEMarion Hospital HospitalComment on above:Performed By: #### ERUR, PREGU ####[facility] [address] [address]Dr. Zuly ApariciopH (U)6.0 [pH]Normal5-9The [facility] HospitalComment on above: Performed By: #### ERUR, PREGU ####[facility] [address] [address]Dr. Zuly AparicioSPEC GRAVITY1.870Tqgwib6.005-<=1.025The [facility] HospitalComment on above:Performed By: #### ERUR, PREGU ####[facility] [address] [address]Dr. Zuly AparicioUA PROTEINNegativeNormalNEGATIVE/ TRACEThe [facility] HospitalComment on above: Performed By: #### SHANELL, PREGU ####[facility] [address] [address]Dr. Zuly AparicioUR MICRO INDNOT INDICATEDNormalThe [facility] HospitalComment on above:Performed By: #### SHANELL, PREGU ####[facility] [address] [address]Dr. Zuly Aparicio Urobilinogen Qn (U)0.2 {Isamar'U}/dLNormal0.2 - 1.0The [facility] HospitalComment on above:Performed By: #### SHANELL, PREGU ####[facility] Debf[address] [place], [place] [address]Dr. Zuly AparicioLIPASEon 33-91-9064Gdxlbf [Catalytic activity/Vol]161.0 U/STscptv35.0-393.0The [facility] HospitalComment on above:Performed By: #### LIPA, ANA #### [facility] [address] [address] [address] Zuly AparicioPREGNANCY URon 45-03-5492GACULISLK, QUALNegativeNormalNEGATIVEThe [facility] HospitalComment on above:Performed By: #### ERUR, PREGU ####[facility] Uwoxhmirxo[address] [place], [place] [address]Dr. Zuly AparicioPROF 14(COMP METB)on 31-53-9047Wvkvrry [Mass/Vol]3.9 g/dLNormal3.4-5.0The [facility] HospitalComment on above:Performed By: #### TSH #### [facility] [address] [place] [address] Dr. Zuly AparicioAlbumin/Globulin [Mass ratio]1.1 {ratio}NormalThe [facility] HospitalComment on above:Performed By: #### TSH #### [facility] [address] [place] [address] Dr. Zuly BeardP [Catalytic activity/Vol]69 U/STioglp00-601Eri [facility] HospitalComment on above:Performed By: #### TSH #### [facility] [address] [place] [address] Dr. Zuly BeardT [Catalytic activity/Vol]46 U/DQisquh58-82Wjd [facility] HospitalComment on above:Performed By: #### TSH #### [facility] [address] [place] [address] Dr. Zuly Calvert gap [Moles/Vol]12.1 mmol/LNormalThe [facility] Comment on above:Performed By: #### TSH #### [facility] [address] [place] [address] Dr. Zuly AparicioAST [Catalytic activity/Vol]24 U/JUfbasv29-74Kfj [facility] HospitalComment on above:Performed By: #### TSH #### [facility] [address] [place] [address] Dr. Zuly AparicioBilirubin [Mass/Vol]0.5 mg/dLNormal0.2-1.0The [facility] Comment on above:Performed By: #### TSH #### [facility] [address] [place] [address] Dr. Zuly AparicioCalcium [Mass/Vol]8.7 mg/dLNormal8.5-10.1The [facility] Comment on above:Performed By: #### TSH #### [facility] [address] [place] [address] Dr. Zuly AparicioChloride [Moles/Vol]106 mmol/QHbmepv84-387Ozk [facility] Comment on above:Performed By: #### TSH #### [facility] [address] [address] [address] Zuly AparicioCO2 [Moles/Vol]25.4 mmol/SPxbvws20.0-32.0The [facility] Comment on above:Performed By: #### TSH #### [facility] [address] [address] [address] Zuly AparicioCreatinine [Mass/Vol]1.11 mg/dLCritically high0.55-1.02[facility] Medical CenterComment on above:Performed By: #### TSH #### [facility] [address] [address] [address] Caruso ChangEGFR-AF BULGARIAN>60Normal>=60The [facility] HospitalComment on above:Performed By: #### TSH #### [facility] [address] [address] [address] Zuly AlGFR-NON AF CSPFOGJC70 mL/min/1.07r9Jzjabtbfxk low>=60The [facility] HospitalComment on above:Performed By: #### TSH #### [facility] [address] [address] [address] Zuly AparicioGlobulin (S) [Mass/Vol]3.5 g/dLNormalThe [facility] HospitalComment on above:Performed By: #### TSH #### [facility] [address] [address] [address] Zuly AparicioGlucose [Mass/Vol]96 mg/eVWgwthm87-589DssRegional Medical Center Comment on above:Performed By: #### TSH #### [facility] [address] [address] [address] Zuly AparicioPotassium [Moles/Vol]3.5 mmol/LNormal3.5-5.1The [facility] Comment on above:Performed By: #### TSH #### [facility] [address] [address] [address] Zuly AparicioProtein [Mass/Vol]7.4 g/dLNormal6.4-8.2[facility] Comment on above:Performed By: #### TSH #### [facility] [address] [place] [address] Dr. Zuly Wanum [Moles/Vol]140 mmol/NEugcmw195-668Rlv [facility] Comment on above:Performed By: #### TSH #### [facility] [address] [place] [address] Dr. Zuly Luque nitrogen [Mass/Vol]12.0 mg/dLNormal7.0-18.0The [facility] HospitalComment on above:Performed By: #### TSH #### [facility] [address] [place] [address] Dr. Zuly Luque nitrogen/Creatinine [Mass ratio]10.8 mg/mgNormalThe [facility] HospitalComment on above:Performed By: #### TSH #### [facility] [address] [place] [address] Dr. Zuly Hoffman AUTO DIFFon [id number] #0.0 103/ulNormal0.0-0.1The [facility] HospitalComment on above:Performed By: #### TSH #### [facility] [address] [place] [address] Dr. Zuly AparicioBasophils/100 WBC (Bld)0.1 %Critically low0.2-2.0The [facility] HospitalComment on above:Performed By: #### TSH #### [facility] [address] [place] [address] Dr. Zuly Hernadez #0.1 103/ulNormal0.0-0.7The [facility] HospitalComment on above: Performed By: #### TSH #### [facility] [address] [place] [address] Dr. Zuly Alosinophils/100 WBC (Bld)1.1 %Normal0.9-7.0The [facility] Comment on above:Performed By: #### TSH #### [facility] [address] [place] [address] Dr. Yilan ChangErythrocyte distribution width (RBC) [Ratio]15.9 %Critically high 11.0-15.0The [facility] HospitalComment on above:Performed By: #### TSH #### [facility] [address] [place] [address] Dr. Zuly AparicioHematocrit (Bld) [Volume fraction]35.2 %Critically low36.0-48.0 The [facility] HospitalComment on above:Performed By: #### TSH #### [facility] [address] [place] [address] Dr. Zuly AparicioHemoglobin (Bld) [Mass/Vol]10.9 g/dLCritically low12.0-16.0The [facility] HospitalComment on above:Performed By: #### TSH #### [facility] [address] [place] [address] Dr. Zuly Angeles #0.02 10e3/ulNormal0.00-0.03The [facility]man HospitalComment on above:Performed By: #### TSH #### [facility] [address] [place] [address] Dr. Zuly Angeles %0.3 %Normal0.0-0.5The [facility] HospitalComc.[facility] on above: Performed By: #### TSH #### [facility] [address] [place] [address] Dr. Zuly OharaH #2.0 103/ulNormal1.2-3.8The [facility] HospitalComment on above:Performed By: #### TSH #### [facility] [address] [place] [address] Dr. Zuly Gouldmphocytes/100 WBC (Bld)28.0 %Tksdyt81.5-60.0The [facility]itt[facility] HospitalComment on above:Performed By: #### TSH #### [facility] [address] [place] [address] Dr. Zuly WelchUAL DIFF REQNONormalThe [facility] HospitalComment on above: Performed By: #### TSH #### [facility] [address] [place] [address] Dr. Zuly Peña (RBC) [Entitic mass]18.4 pgCritically low26.7-34.0The [facility] HospitalComment on above:Performed By: #### TSH #### [facility] [address] [place] [address] Dr. Zuly Peña (RBC) [Mass/Vol]31.0 g/dLWtgdvo19.9-35.2The [facility] HospitalComment on above:Performed By: #### TSH #### [facility] [address] [place] [address] Dr. Zuly Peña (RBC) [Entitic vol]59.3 fLCritically low81.0-99.0The [facility] HospitalComment on above:Performed By: #### TSH #### [facility] [address] [place] [address] Dr. Zuly Colón #0.4 103/ulNormal0.3-0.8The [facility]ittman HospitalComment on above:Performed By: #### TSH #### [facility] [address] [place] [address] Dr. Zuly Clarkocytes/100 WBC (Bld)4.8 %Normal1.7-12.0The [facility] Comment on above:Performed By: #### TSH #### [facility] [address] [place] [address] Dr. Zuly Duggan #4.7 103/ulNormal1.4-6.5The [facility] HospitalComment on above:Performed By: #### TSH #### [facility] [address] [place] [address] Dr. Zuly Odellutrophils/100 WBC (Bld)65.7 %Nsiixr04.0-75.0The [facility] HospitalComment on above:Performed By: #### TSH #### [facility] [address] [place] [address] Dr. Zuly Juarezlet mean volume (Bld) [Entitic vol]10.2 fLNormal9.5-13.5The [facility]itt[facility] HospitalComment on above:Performed By: #### TSH #### [facility] [address] [place], [place] [address] Dr. Zuly AparicioPLT338 103/ppEzoeds559-237Cgo [facility] HospitalComment on above: Performed By: #### TSH #### [facility] [address] [place], [place] [address] Dr. Zuly AparicioRBC5.94 106/ulCritically high4.20-5.40The [facility] Comment on above:Performed By: #### TSH #### [facility] [address] [place], [place] [address] Dr. Zuly AparicioWBC7.2 103/ulNormal4.0-11.0The [facility] HospitalComment on above: Performed By: #### TSH #### [facility] [address] [place], [place] [address] Dr. Zuly AparicioCT HEAD WO CONon [id number] HEAD WO CONEXAM: CT HEAD WO CON INDICATION: Weakness reported. [...] Electronically authenticated by: LEROY PRETTY Date: 2021-12-20 21:04NoSelect Medical Specialty [facility], Inc HospitalCULTURE URINEon [id number] URINECulture Observations: LIGHT GROWTH OF MIXED GENITAL JI. NO POTENTIAL PATHOGENS SEEN.NormalRegional Medical CenterComment on above:Performed By: #### URCX ####[facility] [address] [address]. Zuly Milian URINE PROFILEon 84-86-8860Xpglusuuu Ql (U)NegativeNormalNEGSelect Medical Specialty Hospital - [facility] Comment on above:Performed By: #### SHANELL UMICRO #### [facility] [address] [address] [address] Zuly AparicioClarity (U)CLEARNormalCLEARRegional Medical CenterComment on above: Performed By: #### SHANELL UMICRO #### [facility] [address] [address] [address] Zuly Landaverde (U)LT. YELLOWNormalYOhioHealth Dublin Methodist HospitalComment on above:Performed By: #### SHANELL UMICRO #### [facility] [address] [address] [address] Zuly Wooten micrscopic examination will be performed if indicated. NormalRegional Medical CenterComment on above:Performed By: #### SHANELL UMICRO #### [facility] [address] [address] [address] Zuly AparicioGlucose Ql (U)NegativeNormalNEGATIVERegional Medical CenterComment on above:Performed By: #### SHANELL UMICRO #### [facility] [address] [address] [address] Zuly AparicioHemoglobin Ql (U)LARGEAbnormalNEGSelect Medical Specialty Hospital - [place] Comment on above:Performed By: #### SHANELL UMICRO #### [facility] [address] [address] [address] Zuly AparicioKetones Ql (U)NegativeNormalNEGATIVERegional Medical CenterComment on above:Performed By: #### SHANELL UMICRO #### [facility] [address] [place] [address] Dr. Zuly AparicioLEUKOCYTESNegativeNormalNEGATIVEThe [facility] HospitalComment on above:Performed By: #### JEFERSON REECE #### [facility] [address] [place] [address] Dr. Zuly Encinastrite Ql (U)NegativeNormalNEGATIVEThe [facility] HospitalComment on above:Performed By: #### JEFERSON REECE #### [facility] [address] [place] [address] Dr. Zuly ApariciopH (U)6.0 [pH]Normal5-9The [facility] HospitalComment on above: Performed By: #### JEFERSON REECE #### [facility] [address] [place] [address] Dr. Zuly AparicioSPEC GRAVITY1.882Olvfqg9.005-<=1.025The [facility] HospitalComment on above:Performed By: #### JEFERSON REECE #### [facility] [address] [place] [address] Dr. Zuly Degroot PROTEINNegativeNormalNEGATIVE/ TRACEThe [facility] Comment on above:Performed By: #### JEFERSON REECE #### [facility] [address] [place] [address] Dr. Zuly Rhodes MICRO INDINDICATEDNormalThe [facility]itt[facility] HospitalComment on above: Performed By: #### JEFERSON REECE #### [facility] [address] [place] [address] Dr. Zuly Mathurbilinogen Qn (U)1.0 {Isamar'U}/dLNormal0.2 - 1.0The [facility] HospitalComment on above:Performed By: #### JEFERSON REECE #### [facility] [address] [place] [address] Dr. Zuly Gonzalez 14(COMP METB)on 19-86-8700Tzwrbrm [Mass/Vol]4.1 g/dLNormal 3.4-5.0The [facility] HospitalComment on above:Performed By: #### TSH #### [facility] [address] [address] [address] Zuly AparicioAlbumin/Globulin [Mass ratio]1.1 {ratio}NormalThe [facility] on above:Performed By: #### TSH #### [facility] [address] [address] [address] Zuly BeardP [Catalytic activity/Vol]60 U/PYfzhoo34-921Uji [facility] on above:Performed By: #### TSH #### [facility] [address] [address] [address] Zuly BeardT [Catalytic activity/Vol]52 U/MReaekf19-90Bxw [facility] on above:Performed By: #### TSH #### [facility] [address] [place] [address] Dr. Zuly AparicioAnion gap [Moles/Vol]11.4 mmol/LNormalThe [facility] Comment on above:Performed By: #### TSH #### [facility] [address] [place] [address] Dr. Zuly AparicioAST [Catalytic activity/Vol]25 U/KLuneii19-29Qvw [facility] on above:Performed By: #### TSH #### [facility] [address] [place] [address] Dr. Zuly AparicioBilirubin [Mass/Vol]0.4 mg/dLNormal0.2-1.0The [facility] Comment on above:Performed By: #### TSH #### [facility] [address] [place] [address] Dr. Zuly AparicioCalcium [Mass/Vol]8.7 mg/dLNormal8.5-10.1The [facility] Comment on above:Performed By: #### TSH #### [facility] [address] [place] [address] Dr. Zuly AparicioChloride [Moles/Vol]105 mmol/PZqcbga26-960Xvg [facility] Comment on above:Performed By: #### TSH #### [facility] [address] [address] [address] Zuly AparicioCO2 [Moles/Vol]26.3 mmol/ZSlloky20.0-32.0The [facility] Comment on above:Performed By: #### TSH #### [facility] [address] [place] [address] Dr. Zuly AparicioCreatinine [Mass/Vol]1.06 mg/dLCritically high0.55-1.02The [facility] HospitalComment on above:Performed By: #### TSH #### [facility] [address] [place] [address] Dr. Caruso ChangEGFR-AF BULGARIAN>60Normal>=60The [facility]itt[facility] HospitalComment on above:Performed By: #### TSH #### [facility] [address] [place] [address] Dr. Zuly AlGFR-NON AF BULGARIAN=60Normal>=60The [facility]itt[facility] HospitalComment on above:Performed By: #### TSH #### [facility] [address] [place] [address] Dr. Zuly AparicioGlobulin (S) [Mass/Vol]3.6 g/dLNormalThe [facility] HospitalComment on above:Performed By: #### TSH #### [facility] [address] [place] [address] Dr. Zuly AparicioGlucose [Mass/Vol]99 mg/yWLetpsv68-827ChkRegional Medical Center Comment on above:Performed By: #### TSH #### [facility] [address] [place] [address] Dr. Zuly AparicioPotassium [Moles/Vol]3.7 mmol/LNormal3.5-5.1The [facility] Comment on above:Performed By: #### TSH #### [facility] [address] [place] [address] Dr. Zuly AparicioProtein [Mass/Vol]7.7 g/dLNormal6.4-8.2The [facility] Comment on above:Performed By: #### TSH #### [facility] [address] [place] [address] Dr. Zuly Wanum [Moles/Vol]139 mmol/JGlwjha107-589Gvt [facility] Comment on above:Performed By: #### TSH #### [facility] [address] [place] [address] Dr. Zuly Luque nitrogen [Mass/Vol]17.0 mg/dLNormal7.0-18.0The [facility]itt[facility] HospitalComment on above:Performed By: #### TSH #### [facility] [address] [place] [address] Dr. Zuly Luque nitrogen/Creatinine [Mass ratio]16.0 mg/mgNoLicking Memorial HospitalComment on above:Performed By: #### TSH #### [facility] [address] [place] [address] Dr. Zuly Keyes 77-68-3199UKT8.279 uIU/mLNormal0.358-3.740The [facility]itt[facility] HospitalComment on above:Performed By: #### TSH #### [facility] [address] [place] [address] Dr. Zuly Yost MICROSCOPIC ONLYon 26-22-7113EGTOQKCJJPMOPTaipquenANLR SEEN The [facility] HospitalComment on above:Performed By: #### CHAYITO REECERO #### [facility] [address] [place] [address] Dr. Zuly Fletcher identified Cx Nom (U)INDICATEDNoLicking Memorial HospitalComment on above:Performed By: #### CHAYITO REECERO #### [facility] [address] [place] [address] Dr. Zuly Rayo SEENNormalNONE SEENThe [facility] HospitalComment on above:Performed By: #### SHANELL UMICRO #### [facility] [address] [place] [address] Dr. Zuly Sawantystals LM Nom (Urine sed)NONE SEENNormalNONE SEENRegional Medical CenterComment on above:Performed By: #### SHANELL UMICRO #### [facility] [address] [place] [address] Dr. Caruso ChangEpithelial cells LM Ql (Urine sed)MANYAbnormalNONE SEEN /RAREThe [facility] HospitalComment on above:Performed By: #### JEFERSON REECE #### [facility] [address] [address] [address] Zuly AparicioMUCOUSNONE SEENNormalNONE SEENThe [facility] HospitalComment on above:Performed By: #### CHAYITO REECERO #### [facility] [address] [address] [address] Zuly AparicioGgfdnPGZ9-0Xscbuk0-3Exq [facility] HospitalComment on above:Performed By: #### CHAYITO REECERO #### [facility] [address] [address] [address] Zuly AparicioWBC2-5AbnormalNONE SEENThe [facility] HospitalComment on above: Performed By: #### JEFERSON REECE #### [facility] [address] [address] [address] Zuly AparicioXR CHEST 1 Von [id number] CHEST 1 VEXAM: XR CHEST 1 V HISTORY: SHORTNESS OF BREATH COMPARISON: Chest radiograph 01/14/2021 and 06/29/2020 FINDINGS: No focal consolidation or prominent edema. There is no pleural effusion or pneumothorax. The cardiomediastinal contour is stable. Visualized portions of the upper abdomen are unremarkable. No acute osseus abnormality. IMPRESSION: No acute cardiopulmonary abnormality. Electronically authenticated by: LUDY RM Date: 2021-12-20 21:21[facility] HospitalCoding Summary.on [id number] Summary. CD:[id number]+PGhlYWQ+PL4RZIPdM77wjGCabU9QD9rTCA4EZVVVTDWQZL5EHW2jv CL7NHodW3FkenNc [file] bGFw (more content not included)...NormalSamaritan HospitalPath. Review on 18-29-2448Vjtv ReviewMicrocytic and hypochromic anemia. Clinical correlation and iron studies are recommended to determine etiology as clinically indicated. Invalid Interpretation CodeSamaritan HospitalComment on above:Order Comment: Order Added by Discern Expert.Performed By: #### [id number], 50705555, 25038644, 3776103, 57891410, 02932456, 3379067 #### [facility] [address] [place] [address]Nsyd Diffon 51-24-3071Gxwnajpuh/100 WBC (Bld)0.2 %Normal0.0-2.0 Samaritan HospitalComment on above:Order Comment: Order Added by Discern Expert.Performed By: #### [id number], 18333229, 77416698, 5190625, 95516332, 59259406, 2887605 #### [facility] [address] [place] [address]Vxenjebho/Leukocytes Auto (Bld) [Pure # fraction]0.0 E9/LNormal 0.0-0.2Fisher Brandenburg CenterComment on above:Order Comment: Order Added by Discern Expert.Performed By: #### [id number], 45249119, 98818517, 6090603, 99590667, 77256322, 0111496 #### [facility] [address] [place] [address]Bccoucynrij/100 WBC (Bld)1.3 %Normal0.0-8.0Samaritan HospitalComment on above:Order Comment: Order Added by Discern Expert.Performed By: #### 1313146, 96920694, 61978353, 2746343, 37957673, 11729989, 3216475 #### [facility] [address] [place], [place] [address]Qtjqbacvbgf/Leukocytes Auto (Bld) [Pure # fraction]0.1 E9/L Normal0.0-0.5FVeterans Health AdministrationComment on above:Order Comment: Order Added by Discern Expert.Performed By: #### 3655797, 71415493, 75058461, 4849226, 28516693, 42026272, 5778001 #### [facility] [address] [place] [address] 88[address]Xdnukbryanv/100 WBC (Bld)30.3 %Kqqdsi89.0-50.0Samaritan HospitalComment on above:Order Comment: Order Added by Discern Expert. Performed By: #### 8068895, 12413173, 86950242, 6048137, 41028862, 03425323, 1126343 #### [facility] [address] [place] [address]Elsxkowngez/Leukocytes Auto (Bld) [Pure # fraction]2.1 E9/L Normal1.0-4.0Samaritan HospitalComment on above:Order Comment: Order Added by Discern Expert.Performed By: #### 5191935, 08907672, 17323530, 8316154, 91160193, 44987569, 2349017 #### [facility] [address] [place] [address]Bcbdchxvt/100 WBC (Bld)6.2 %Normal4.0-14.0Samaritan HospitalComment on above:Order Comment: Order Added by Discern Expert.Performed By: #### 0599003, 12360306, 01829949, 4439675, 70885081, 50491710, 3231665 #### [facility] [address] [place] [address]Nguiajiww/Leukocytes Auto (Bld) [Pure # fraction]0.4 E9/LNormal 0.2-1.0Samaritan HospitalComment on above:Order Comment: Order Added by Discern Expert.Performed By: #### 5535903, 65336383, 56622635, 4543161, 47567432, 00117515, 6907803 #### [facility] [address] [place] [address]Zocnnrqeilt/100 WBC (Bld)62.0 %Ayabjq71.0-75.0Samaritan HospitalComment on above:Order Comment: Order Added by Discern Expert. Performed By: #### 4857731, 77641295, 65759953, 3245431, 08931999, 52249257, 6435774 #### [facility] [address] [place], [place] [address]Odfgqqydssr/Leukocytes Auto (Bld) [Pure # fraction]4.3 E9/L Normal2.0-7.5FVeterans Health AdministrationComment on above:Order Comment: Order Added by Discern Expert.Performed By: #### 9918775, 56070767, 31772955, 1725602, 87926051, 77380722, 6740908 #### [facility] [address] [place], [place] [address]RTWid 04-29-1382Nevcctqkuz [Mass/Vol]1.0 mg/dLNormal0.5-1.3 [facility]itan HospitalComment on above:Performed By: #### 8501281, 53794042, 25402874, 4952148, 79879638, 98901649, 8739940 #### [facility] [address] [place], [place] [address]Mpqo nitrogen [Mass/Vol]17 mg/dLNormal5-21Samaritan HospitalComment on above:Performed By: #### 7839124, 58125939, 70578960, 2125653, 16586102, 72538814, 9871697 #### [facility] [address] [place] [address]Ejeq nitrogen/Creatinine [Mass ratio]17 No PjgkfElsejd02-06 [facility]itan HospitalComment on above:Performed By: #### 3405112, 15249347, 39626972, 6585583, 68157125, 03976926, 9882423 #### [facility] [address] [place], [place] [address]Qyffk gap [Moles/Vol]13 mmol/LNormal6-16Samaritan HospitalComment on above:Performed By: #### 4322275, 44521874, 04394084, 9319747, 47859932, 43810808, 0094702 #### [facility] [address] [place], [place] [address]Mkcbmec [Mass/Vol]9.2 mg/dLNormal8.9-11.1FVeterans Health AdministrationComment on above:Performed By: #### 2335259, 85705775, 46760473, 3467375, 99290975, 89770027, 7693492 #### [facility] [address] [place], [place] [address]Avcdcmte [Moles/Vol]106 mmol/RCbukwx302-893QwzylnSamaritan HospitalComment on above:Performed By: #### 4799970, 65766634, 54190879, 9929434, 09600815, 41638692, 5729152 #### [facility] [address] [place], [place] [address]DE2 [Moles/Vol]22 mmol/FAvlrez47-73RnndkeSamaritan Hospital Comment on above:Performed By: #### 3458409, 80954284, 07144688, 6282766, 57242739, 10534764, 6392936 #### [facility] [address] [place], [place] [address]Njusxto [Mass/Vol]96 mg/oUNkakzy19-658TekprySamaritan HospitalComment on above:Result Comment: If this glucose result represents a fasting glucose, interpretation should refer tothe following reference range: 55-99 mg/dLPerformed By: #### 9590378, 15497748, 11043594, 7974987, 93639788, 65808861, 0950759 #### [facility] [address] [place], [place] [address]Ucxisdqsx [Moles/Vol]4.2 mmol/LNormal3.5-5.3FVeterans Health AdministrationComment on above:Performed By: #### 9075479, 61071044, 89366842, 0697615, 45540373, 99475921, 4108436 #### [facility] [address] [place], [place] [address]Kkoxcb [Moles/Vol]137 mmol/KIatolf314-434RemffwSamaritan HospitalComment on above:Performed By: #### 2969633, 07499763, 59129500, 1619267, 36944677, 96480255, 8213870 #### [facility] [address] [place], [place] [address]HBC w/ Auto Diffon 71-09-7704Satbnnjtxxb distribution width (RBC) [Ratio]15.4 %High10.9-14.2FVeterans Health AdministrationComment on above: Performed By: #### 8925186, 27338835, 28678332, 0849951, 04664734, 87566885, 4958007 #### [facility] [address] [place], [place] [address]Wozaopzudx (Bld) [Volume fraction]34.9 %Foyhre55.0-46.0Samaritan HospitalComment on above:Performed By: #### 2836506, 35900950, 37720266, 0118725, 51966144, 46340654, 5017931 #### [facility] [address] [place], [place] [address]Xtkkqqlipi (Bld) [Mass/Vol]11.0 g/dLLow12.0-16.0Samaritan HospitalComment on above:Performed By: #### 5456174, 95161386, 85246953, 6730323, 35257664, 71728304, 5685324 #### [facility] [address] [place], [place] [address]ROX (RBC) [Entitic mass]17.7 pgLow27.0-34.0Samaritan HospitalComment on above:Performed By: #### 5544552, 63685831, 77791518, 4704714, 90961019, 32007920, 1340540 #### [facility] [address] [place], [place] [address]EIBC (RBC) [Mass/Vol]31.6 g/fSKibqoe99.4-36.0Sam[facility]itan HospitalComment on above:Performed By: #### 8949583, 07535496, 44640678, 8567403, 19764939, 11521446, 2680035 #### [facility] [address] [place] [address]TVS (RBC) [Entitic vol]56.1 fLLow80.0-100.0Samaritan HospitalComment on above:Performed By: #### 8432122, 49088801, 80463530, 9912509, 93364724, 49428279, 4128549 #### [facility] [address] [place] [address]Naldqhyh mean volume (Bld) [Entitic vol]8.9 fLNormal6.4-10.8 [facility]itan HospitalComment on above:Performed By: #### 4817836, 80223852, 84760631, 0692777, 76048780, 62330817, 8582771 #### [facility] [address] [place] [address]Mlpfvkhcq (Bld) [#/Vol]281.0 E9/PDknmig247.0-500.0Sam[facility]itan HospitalComment on above:Performed By: #### 7700621, 50779441, 55207610, 2845946, 39913885, 94076093, 5423165 #### [facility] [address] [place] [address]YLQ (Bld) [#/Vol]6.2 E12/LHigh4.3-5.9Samaritan HospitalComment on above:Performed By: #### 3305212, [id number], [id number], 4894801, 49225379, 71162168, [id number] #### [facility] [address] [place] [address] 94664ORG corrected for nucl RBC Auto (Bld) [#/Vol]6.9 E9/LNormal 4.0-11.0Samaritan HospitalComment on above:Performed By: #### [id number], [id number], [id number], 3772658, 41394226, 91394471, [id number] #### [facility] [address] [place] [address] 31788PFWTFEIIRQeqbtin By: SYSTEM SYSTEM on 69-32-4022Sheim gap [Moles/Vol]13 mmol/LNormal6 - 16 mEq/LFTMC RemisolCalcium [Mass/Vol]9.2 mg/dL Normal8.9 - 11.1 mg/dLFTMC RemisolChloride [Moles/Vol]106 mmol/FWxbrhr393 - 111 mmol/LFTMC RemisolCO2 [Moles/Vol]22 mmol/RVifmhy22 - 31 mmol/LFTMC Remisol Creatinine [Mass/Vol]1.0 mg/dLNormal0.5 - 1.3 mg/dLFTMC RemisolGFR/1.73 sq M.predicted among blacks MDRD (S/P/Bld) [Vol rate/Area]mL/min/1.73 x7Tmmfok >=59mL/min/1.73 m2FT[facility] Chem SGFR/1.73 sq M.predicted among non-blacks MDRD (S/P/Bld) [Vol rate/Area]mL/min/1.73 k1Wepjhm>=59mL/min/1.73 m2[facility] Chem S Glucose [Mass/Vol]96 mg/yUWxnnla85 - 199 mg/dLFTMC RemisolPotassium [Moles/Vol] 4.2 mmol/LNormal3.5 - 5.3 mmol/LFTMC RemisolSodium [Moles/Vol]137 mmol/LNormal 135 - 145 mmol/LFTMC RemisolTroponin I.cardiac [Mass/Vol]pg/mLLow10.10 - 27.10 pg/mLFTMC RemisolUrea nitrogen [Mass/Vol]17 mg/dLNormal5 - 21 mg/dLFTMC Remisol Urea nitrogen/Creatinine [Mass ratio]17 mg/wvKntrdj12 - 20FT[facility] RemisolConsent for Treatmenton 90-04-0181Jvhcxcl for Treatment [id number]#1.00CD:127[facility] DublinDischarge Instructionson 00-98-4433Nmrjcplij Instructions [id number]#1.00CD:127[facility] Clinical Summaryon [id number] Clinical Summary [place] [id number] ED Clinical Summary Person Information Name: TORIE JOHNSTON [facility] Age: 31 Years : 1990 Sex: Female Language: Jamaican PCP: YAMILE GARCIA CNP Marital Status: Visit [...] 03:49:35 12/10/2021 03:49:35 12/10/2021 03:49:35 AD[address]: [address] [facility] [facility] [phone] PHYS DOC NOTES: MEDICAL INFORMATION: Prescriptions Given: [...] With: Address: When: YAMILE GARCIA [address] [place], [place] [phone] [employer] (1) In 3 days 12/13/2021 Comments: Return to the emergency room if your vertigo recurs or any new symptoms DIAGNOSIS: 1:Vertigo; 2:Leg painNocolumbus regional healthcare systemRafi [facility] CenterED Note-Nursingon 52-55-0594JU Note-Nursingpt given d/c instructions and educated on importance of follow up. pt educated on new medications. pt verbalized understanding of instructions and readiness for d/c. pt walked self ambulatory to waiting room in stable conditionNocolumbus regional healthcare systemRafi Augustineus Medical CenterED Note-Physicianon 12-10-2021 ED Note-PhysicianBasic Information Time Seen: Miguel Kamara M.D. 12/09/2021 [...] meclizine 12.5 mg Tab, 25 mg, Oral [id number] [F], 1000 mL, IV Phenergan 25 mg/mL Injection, 12.5 mg, IV Push Disposition Plan Patient Discharge Condition Stable, improved Discharge Disposition Discharged home Discharge Prescription List Prescriptions meclizine 25 mg Tab, 25 mg= 1 tab(s), Oral, TID Zofran ODT 4 mg Tab-Dis, 4 mg= 1 tab(s), Oral, q6hr, PRN Follow-up With When Contact Information YAMILE GARCIA In 3 days 12/13/2021 EDT [address] [place] [address] [phone] Business (1) Additional Instructions: Return to the [...] Low (12/10/21 00:31:00) Hct: (more content not included)...[facility] - DublinComment on above:Result Comment: Electronically Signed By: Asad Strong, Miguel Rey\.br\Date and Time Signed: 12/11/2203:59 EDTED Patient Education Noteon 93-97-7581HM Patient Education NoteENT Vertigo Vertigo is the feeling that you or your surroundings are moving when they are not. This feeling cancome and go at any time. Vertigo often [...] you feel dizzy. General instructions ? Take zqsb-ndp-yuojnxk and prescription medicines only as told by [...] 02/20/2006 Document Revised: 04/06/2019 Document Reviewed: 04/06/2019 [employer] Patient Education ? 2019 [employer] ED Patient Summaryon 45-26-0901LU Patient Summary [place] [id number] Patient Discharge Instructions Person Information Name: TORIE JOHNSTON Age: 31 Years Arrival Date: 12/09/2021 22:22:45 Discharge Diagnosis: 1:Vertigo; 2:Leg pain Primary Care Physician: YAMILE GARCIA CNP Provider Information Primary Provider: Miguel Kamara M.D. [employer] Associate:None The exam and treatment you received in the Emergency Department were for an urgent problem and are not intended as complete care. It is important that you follow up with a doctor, nurse practitioner,or physician?s assistant public defender for ongoing care. If your symptoms become worse or you do not improve as expected and you are unable to reach your usual health care provider, you should return to the Emergency Department. We are available 24 hours a day. VICKIE TORIE Carline has been given the following list of patient education materials, prescriptions and follow-up instructions: Follow-up Instructions: With: Address: When: YAMILE GARCIA [address] [place], [place] [phone] Business (1) In 3 days 12/13/2021 Comments: [...] opioids can be used to help relieve zazwqpxs-vf-uwsnyp pain and are often prescribed following a [...] and have fewer risks and side effects. Optionsmay include: ? Pain relievers such as acetaminophen, [...] unused prescription opioids: Find your community drug take- back program or yourpharmacy mail-back program, or flush them down the toilet, following guidance from the Food and Drug Administration (www.fda.gov/Drugs/ResourcesForYou). ? Visit www.cdc.gov/drugoverdose to learn about the risks of opioids abuse and overdose. ? If you believe you may be struggling with addiction, tell your health respiratory care technician and ask f(more content not included)...[facility] DublinHEMATOLOGYOrdered By: Serg Goodson on 32-78-7015Xsvkvwkoggox Ql (Bld) Present (7/17/22 12:31 AM)NormalNOR[facility]ION[facility] HemeManSSElliptocytes LM Ql (Bld)Present (12/10/21 12:31 AM)NormalNORMAN REGIONAL H[facility] HemeManSSErythrocyte distribution width (RBC) [Ratio]15.4 %High10.9 - 14.2 %[facility] HemeAutoSSHematocrit (Bld) [Volume fraction] 34.9 %Xyhfqs23.0 - 46.0 %[facility] HemeAutoSSHemoglobin (Bld) [Mass/Vol]11.0 g/dLLow 12.0 - 16.0 gm/dLFT HemeAutoSSHypochromia Auto Ql (Bld)Present (12/10/21 12:31 AM)NormalNORMAN REGIONAL [facility] HemeManSSMCH (RBC) [Entitic mass]17.7 pgLow27.0 - 34.0 pgFTM HemeAutoSSMCHC (RBC) [Mass/Vol]31.6 g/nSFupkrx85.4 - 36.0 gm/dLFT HemeAutoSSMCV (RBC) [Entitic vol]56.1 fLLow80.0 - 100.0 fLNORMAN REGIONAL HOSPITAL [facility] HemeAutoSS Morphology Rey (Bld) [Interp]See Morphology (12/10/21 12:31 AM)NormalNORMAN REGIONAL [facility] HemeManSSPlatelet mean volume (Bld) [Entitic vol] 8.9 fLNormal6.4 - 10.8 fLFT HemeAutoSSPlatelets (Bld) [#/Vol]281.0 E9/LNormal 150.0 - 500.0 E9/LFTMC HemeAutoSSPoikilocytosis Auto Ql (Bld)Present (12/10/21 12:31 AM)NormalNORMAN REGIONAL [facility] HemeManSSPolychromasia LM Ql (Bld)Present (12/10/21 12:31 AM)NormalFT HemeManSSRBC (Bld) [#/Vol]6.2 E12/LHigh4.3 - 5.9 E12/LFTMC HemeAutoSSTeardrop CellPresent (12/10/21 12:31 AM)NormalNORMAN REGIONAL [facility] HemeManSSWBC corrected for nucl RBC Auto (Bld) [#/Vol]6.9 E9/LNormal4.0 - 11.0 E9/LFTMC HemeAutoSSHEMATOLOGYOrdered By: SYSTEM SYSTEM on 05-61-2711Gwuojrzgw/100 WBC (Bld)0.2 %Normal0.0 - 2.0 %[facility] HemeAutoSS Basophils/Leukocytes Auto (Bld) [Pure # fraction]0.0 E9/LNormal0.0 - 0.2 E9/L [facility] HemeAutoSSEosinophils/100 WBC (Bld)1.3 %Normal0.0 - 8.0 %[facility] HemeAutoSS Eosinophils/Leukocytes Auto (Bld) [Pure # fraction]0.1 E9/LNormal0.0 - 0.5 E9/L [facility] HemeAutoSSLymphocytes/100 WBC (Bld)30.3 %Cuesxz94.0 - 50.0 %[facility] HemeAutoSS Lymphocytes/Leukocytes Auto (Bld) [Pure # fraction]2.1 E9/LNormal1.0 - 4.0 E9/L [facility] HemeAutoSSMonocytes/100 WBC (Bld)6.2 %Normal4.0 - 14.0 %[facility] HemeAutoSS Monocytes/Leukocytes Auto (Bld) [Pure # fraction]0.4 E9/LNormal0.2 - 1.0 E9/L [facility] HemeAutoSSNeutrophils/100 WBC (Bld)62.0 %Rfufxe17.0 - 75.0 %[facility] HemeAutoSS Neutrophils/Leukocytes Auto (Bld) [Pure # fraction]4.3 E9/LNormal2.0 - 7.5 E9/L [facility] HemeAutoSSMorphon 20-01-6114Wfeaujkinzqn Ql (Bld)PresentSelect Medical OhioHealth Rehabilitation Hospital - DublinComment on above:Order Comment: Order Added by Discern Expert. Performed By: #### [id number], 13730064, 60742412, 9888200, 70945275, 96133196, 0878902 ###[facility] [address] [place] [address] 12548Fdhnstwnkddh LM Ql (Bld)PresentSelect Medical OhioHealth Rehabilitation Hospital - DublinComment on above:Order Comment: Order Added by Discern Expert.Performed By: #### [id number], 58190797, 49775676, 3966093, 61266576, 09667487, 2651007 #### [facility] [address] [place], [place] [address]Iukneqjlocw Auto Ql (Bld)[facility] HospitalComment on above:Order Comment: Order Added by Discern Expert.Performed By: #### [id number], 88514193, 57005394, 7719914, 80145846, 81988141, 3240935 #### [facility] [address], [place] [address]Dfunufxxhj Rey (Bld) [Interp]See MorphologySelect Medical OhioHealth Rehabilitation Hospital - DublinComment on above:Order Comment: Order Added by Discern Expert. Performed By: #### 1405813, 22932422, 02720902, 3185698, 76249471, 43784135, 4408912 #### [facility] [address], [place] [address]Ltzwmgjfeohrrv Auto Ql (Bld)[facility] HospitalComment on above:Order Comment: Order Added by Discern Expert.Performed By: #### 6869805, 44443633, 35837748, 4690246, 03328719, 04649451, 9988931 #### [facility] [address] [place], [place] [address]Vcgwbtbcmttkl LM Ql (Bld)[facility] HospitalComment on above:Order Comment: Order Added by Discern Expert.Performed By: #### 1634975, 37782106, 91634194, 5164205, 60704880, 14757784, 5894041 #### [facility] [address] [place], [place] [address]Yblckvhi CellPresentSelect Medical OhioHealth Rehabilitation Hospital - DublinComment on above:Order Comment: Order Added by Discern Expert.Performed By: #### 4607312, 47711120, 97065430, 4914829, 42946278, 24134959, 2842054 #### [facility] [address], [place] [address]NHATXRVZRjsgfsz By: Serg Goodson on 48-23-3157EVZ.beta subunit (U) [Moles/Vol]NegativeNormalNORMAN REGIONAL [facility] Man SeroTroponin 0 Hr.on 12-10-2021 Troponin I.cardiac [Mass/Vol]ng/mLLow10.10-27.10[facility] Comment on above:Result Comment: The 95% CI (Confidence Interval) PPV (Positive Predictive Value) for myocardial infarction in females is 38 pg/mL, in males 51 pg/mL. The results should be used in conjunction with clinical conditions of myocardial infarction. (Access High Sensitivity Troponin I Instructions For Use, Mili Jeniffer, December 2017)Performed By: #### [id number], 40814479, 50932950, 8633018, 38712574, 05845848, 6826198 #### [facility] [address], [place] [address]B BetaHcg Qualon 42-11-9059GYD.beta subunit (U) [Moles/Vol] NegativeNormalSamaritan HospitalComment on above:Performed By: #### [id number], 75533449 ####[facility] [address] [place], [place] [address]GQ With Cult Reflexon 86-30-5288Gucwojiuc Ql (U)Negative NormalNegativeSamaritan HospitalComment on above:Performed By: #### 15558718, 41637315 #### [facility] [address], [place] [address]Rjngdit (U)CLEARNormalClearSamaritan HospitalComment on above:Performed By: #### 48178781, 33125593 #### [facility] [address] [place], [place] [address]Tmmzm (U)YELLOWNormalYellowSamaritan HospitalComment on above:Performed By: #### 17972084, 04036139 #### [facility] [address], [place] [address]Cqbgarcrto cells.squamous LM.HPF (Urine sed) [#/Area]0-2Normal 0-2Fisher Brandenburg CenterComment on above:Performed By: #### 86446258, 08389084 #### [facility] [address] [place] [address] 28245Cxdhmgr Test strip (U) [Mass/Vol]NegativeNormalNegativeSamaritan HospitalComment on above:Performed By: #### 02966254, 76811990 #### [facility] [address] [place] [address] 80317Uenpdvbrpm Ql (U)NegativeNormalNegativeSamaritan HospitalComment on above:Performed By: #### 86140411, 62498775 #### [facility] [address] [place] [address] 693[address]Yhbujvl (U) [Mass/Vol]NegativeNormalNegativeSamaritan HospitalComment on above:Performed By: #### 11089895, 13579190 #### [facility] [address] [place] [address] 04194Viqqxmn.plasma/Ivalee.RBC (Bld) [Mass ratio]4-5Oswils7-1Rbkhtt [facility]enburg CenterComment on above:Performed By: #### 73535632, 25430459 #### [facility] [address] [place] [address] 63375Ltghraa Ql (U)[facility] HospitalalNegUK Healthcare Comment on above:Performed By: #### 92051273, 20691106 #### [facility] [address] [place] [address] 82370jS (U)6.0 [pH]Invalid Interpretation Code5.0-9.0[facility] HospitalComment on above:Performed By: #### 69549440, 15103686 #### [facility] [address] [place] [address] 83355Nczecon (U) [Mass/Vol]NegativeNormalNegativeSamaritan HospitalComment on above:Performed By: #### 64138995, 57621372 #### [facility] [address] [place] [address] 58772Htaxsxks gravity (U) [Rel density]1.025Invalid Interpretation Code1.005-1.030[facility] HospitalComment on above:Performed By: #### 15946958, 94923246 #### [facility] [address] [place] [address] 22[address]Ctvu of Urine collection methodClean CatchNormalSamaritan HospitalComment on above:Performed By: #### 11176968, 49488871 #### [facility] [address] [place] [address] 08562Cfwhjrdjrmai Qn (U)0.2 {Isamar'U}/dLNormal0.0-1.0[facility] HospitalComment on above:Performed By: #### 28614693, 37547496 #### [facility] [address] [place] [address]30[address]WWR Auto Ql (U)NegativeNormalNegativeSamaritan HospitalComment on above:Performed By: #### 47054616, 71673034 #### [facility] [address] [place] [address] 499[address]GGU LM.HPF (Urine sed) [#/Area]8-8Buidur8-1Qcjqch [facility]enburg CenterComment on above:Performed By: #### 71273798, 24898875 #### [facility] [address] [place] [address] 61180OMFCJJBCUPRifgivq By: Serg Goodson on 30-52-7901Xeooypjyn Ql (U)Negative (12/10/21 12:32 AM)NormalNegativeNORMAN [facility] UA Auto SSClarity (U)Clear (12/10/21 12:32 AM)NormalClearFTM UA Auto SSColor (U)Yellow (12/10/21 12:32 AM)NormalYellowNORMAN REGIONAL HOSPITAL [facility] UA Auto SSEpithelial cells.squamous LM.HPF (Urine sed) [#/Area]0-2 /HPFNormal0-2/HPFNORMAN REGIONAL HOSPITAL [facility] UA Auto SSGlucose Test strip (U) [Mass/Vol]Negative (7/17/22 12:32 AM)NormalNegativeNORMAN REGIONAL [facility] UA Auto SSHemoglobin Ql (U)Negative (12/10/21 12:32 AM)NormalNegativeNORMAN REGIONAL [facility] UA Auto SSKetones (U) [Mass/Vol]Negative (12/10/21 12:32 AM)NormalNegativeNORMAN REGIONAL [facility] UA Auto SSLithium.plasma/Ivalee.RBC (Bld) [Mass ratio]0-3 /HPFNormal0-3/HPFNORMAN REGIONAL HOSPITAL [facility] UA Auto SSNitrite Ql (U)Negative (12/10/21 12:32 AM)NormalNegativeNORMAN REGIONAL [facility]OSPITAL [facility] UA Auto SSpH (U)6.0 *NA* (12/10/21 12:32 AM)Invalid Interpretation Code5.0 - 9.0[facility] UA Auto SSProtein (U) [Mass/Vol]Negative (12/10/21 12:32 AM)NormalNegativeNORMAN REGIONAL [facility] UA Auto SSSpecific gravity (U) [Rel density]1.025 *NA* (12/10/21 12:32 AM)Invalid Interpretation Code1.005 - 1.030[facility] UA Auto SSUA Spec DescClean Catch (12/10/21 12:32 AM)NormalNORMAN REGIONAL [facility]OS[facility]ITAL [facility] UA Auto SSUrobilinogen Qn (U)0.5268803 {Isamar'U}/dLNormal0.0 - 1.0 EU/dLNORMAN REGIONAL HOSPITAL [facility] UA Auto SSWBC Auto Ql (U)Negative (12/10/21 12:32 AM)NormalNegativeNORMAN REGIONAL [facility] UA Auto SSWBC LM.HPF (Urine sed) [#/Area]0- 5 /HPFNormal0-5/HPFNORMAN REGIONAL HOSPITAL [facility] UA Auto SSUS LE Venous Duplex Bilateralon 83-66-1943TV LE Venous Duplex BilateralExam Date/Time: 12/10/2021 02:03 EDT Reason for Exam: [...] Orion Donahue M.D. Transcribed by: FABI Technologist: [facility] Rehabilitation HospitaleGFRon 55-47-6671BJH/1.73 sq M.predicted among blacks MDRD (S/P/Bld) [Vol rate/Area] mL/min/{1.73_m2}Normal>=59[facility] HospitalComment on above:Order Comment: Order added by Discern Expert.Result Comment: eGFR is race adjusted. AA=.Performed By: #### [id number], 49369920, 35748116, 8229840, 70692053, 42156987, 4091821 #### [facility] [address] [place], [place] [address]WWC/1.73 sq M.predicted among non-blacks MDRD (S/P/Bld) [Vol rate/Area]mL/min/{1.73_m2}Normal>=59[facility] HospitalComment on above: Order Comment: Order added by Discern Expert.Result Comment: Chronic kidney disease could be indicated at eGFR's of less than 60 mL/min/1.73m2. Kidney failure is indicated at less than 15 mL/min/1.73m2.Performed By: #### [id number], 88211570, 53922190, 4907617, 01460028, 97533319, 2831496 #### [facility] [address] [place], [place] [address]WT CONSULT FOLLOWUPon 89-58-4985XG CONSULT FOLLOWUPPatient: TORIE JOHNSTON Exam Date: 11/16/2021 : 1990 Gender:F Ordering : DR SADI GLEZ M.D. Admission #: [id number] Family : Order #: [id number] CLICK HERE TO VIEW EXAM RADIOLOGY REPORT [...] physical exam and consultation Dictated by: Jose Urias M.D. on 11/16/2021 at 11:58 Approved by: Jose Urias M.D. on 11/16/2021 at 12:01[facility] HospitalVC EXT VENOUS LT LIMITEDon 32-75-2637GH EXT VENOUS LT LIMITEDPatient: TORIE JOHNSTON Exam Date: 11/16/2021 : 1990 Gender:F Ordering : DR SADI GLEZ M.D. Admission #: [id number] Family : Order #: [id number] CLICK HERE TO VIEW EXAM RADIOLOGY REPORT [...] left great saphenous vein. Dictated by: Jose Urias M.D. on 11/16/2021 at 11:57 Approved by: Jose Urias M.D. on 11/16/2021 at 11:58[facility] HospitalVC ENDOVENOUS ABL 1ST V LTon 71-58-9956FF ENDOVENOUS ABL 1ST V LT Patient: TORIE JOHNSTON Exam Date: 11/08/2021 : 1990 Gender:F Ordering : DR SADI GLEZ M.D. Admission #: [id number] Family : Order #: [id number] CLICK HERE TO VIEW EXAM RADIOLOGY REPORT [...] left great saphenous vein. Dictated by: Jose Urias M.D. on 11/08/2021 at 08:57 Approved by: Jose Urias M.D. on 11/08/2021 at 08:59[facility] HospitalVC CONSULT FOLLOWUPon 83-31-1230UJ CONSULT FOLLOWUPPatient: TORIE JOHNSTON Exam Date: 10/19/2021 : 1990 Gender:F Ordering : DR SADI GLEZ M.D. Admission #: [id number] Family : Order #: [id number] CLICK HERE TO VIEW EXAM RADIOLOGY REPORT [...] physical exam and consultation Dictated by: Jose Urias M.D. on 10/19/2021 at 09:35 Approved by: Jose Urias M.D. on 10/19/2021 at 09:37[facility] HospitalVC EXT VENOUS RT LIMITEDon 67-41-4814QC EXT VENOUS RT LIMITEDPatient: TORIE JOHNSTON Exam Date: 10/19/2021 : 1990 Gender:F Ordering : DR SADI GLEZ M.D. Admission #: [id number] Family : Order #: [id number] CLICK HERE TO VIEW EXAM RADIOLOGY REPORT [...] right great saphenous vein. Dictated by: Jose Urias M.D. on 10/19/2021 at 09:33 Approved by: Jose Urias M.D. on 10/19/2021 at 09:34[facility] HospitalVC ENDOVENOUS ABL 1ST V RTon 42-54-4657AF ENDOVENOUS ABL 1ST V RT Patient: TORIE JOHNSTON Exam Date: 10/16/2021 : 1990 Gender:F Ordering : DR SADI GLEZ M.D. Admission #: [id number] Family : Order #: [id number] CLICK HERE TO VIEW EXAM RADIOLOGY REPORT [...] right great saphenous vein. Dictated by: Sadi Glez MD on 10/16/2021 at 09:25 Approved by: Sadi Glez MD on 10/16/2021 at 09:30[facility] THYROIDon 10-67-4022JK THYROIDEXAMINATION: US THYROID HISTORY: Hypothyroidism COMPARISON: Ultrasound thyroid [...] No significant change. Electronically authenticated by: JOSE URIAS Date: 2021-10-10 08:52[facility] Vital Signs Date TimeVital SignValuePerforming SbzalcdauJbssshit29-37-8546 14:00-0400Body dtdreqzsdbm51.6 [degF][facility]07-17-2022 14:00-0400Diastolic blood blnirwsq77 mm[Hg][facility]07-17-2022 14:00-0400Heart rate86 /minMetroHealth [facility] Center07-17-2022 14:00-0400Mean blood khwpzbgo312 mm[Hg][facility]07-17-2022 14:00-0400Respiratory rate18 /minPark[facility]07-17-2022 14:00-9334AjK6% (BldA) [Mass fraction] 100 %[facility]07-17-2022 14:00-0400Systolic blood hpbiybdc936 mm[Hg][facility]07-17-2022 03:38-0400Body odlmkojgska55.24 [degF][facility]07-17-2022 03:38-0400Diastolic blood vafjudkf93 mm[Hg][facility]07-17-2022 03:38-0400Heart rate92 /minPark[facility] Health [facility]07-17-2022 03:38-0400Mean blood larmlnxv83 mm[Hg] [facility]07-17-2022 03:38-0400Respiratory rate 17 /minMet[facility]07-17-2022 03:38-5442ChJ2% (BldA) [Mass fraction]99 %[facility]07-17-2022 03:38-0400Systolic blood rdmayjsz902 mm[Hg][facility]07-17-2022 03:00-0400Diastolic blood bngrizeu26 mm[Hg][facility]07-17-2022 03:00-0400Mean blood jipkpjol824 mm[Hg][facility]07-17-2022 03:00-0400Systolic blood pressure 137 mm[Hg][facility]07-17-2022 00:00-0400Heart rate80 /minMet[facility]07-16-2022 23:00-0400gluc 90 mg/dLMet[facility]Health [facility]07-16-2022 23:00-0400gluc [facility]07-16-2022 23:00-0400Heart rate75 /minMet[facility]07-16-2022 22:46-0400Heart rate86 /minMet[facility]Health [facility] Encounters Encounter DateEncounter TypeCare ProviderFacilityStart: 2023 End: 41-90-7759lrcotkurkdZJZMB SHAMMOFacility:[facility] Hospitaltart: 09-20-2022 End: 94-87-1667ejybotuzjjWUJ YAMILE GARCIAFacility:E1Nevph: 09-04-2022 End: 75-94-4500swttbysxhpXE SADI GLEZFacility:S8Rbfqt: 08-27-2022 End: 35-25-1837tfugoukgwrCX JOSE URIASFacility:R1Bcdut: 08-21-2022 End: 22-04-8027zizflydwodES SADI GLEZFacility:F1Murhv: 08-16-2022 End: 53-05-1657csmxcnhdjzHK SADI Oliveira WESTFacility:Q1Amsvj: 05-16-2022 End: 94-64-8230cqqayhfpzwCJWTH PARKERFacility:P8Dfbsh: 04-19-2022 End: 28-74-3449lagejzkidwWLRIU RONALDOFacility:U0Eomsb: 12-20-2021 End: 95-52-3080afohieamhjGVU RAMEY .Facility:Z6Jqtnz: 12-09-2021 End: 02-93-1273Dstktvvvg department patient visitAstrit [facility] Start: 11-23-2021 End: 30-18-4315ejyxneihnvYDJ YAMILE STEELEHHOLZFacility:V3Ykxhq: 48-98-7763eniqvrjbpd DR SADI Oliveira WESTFacility:U6Ryvvu: 11-16-2021 End: 20-91-7130hgkxvalcpzTL DAVID V WESTFacility:V9Gzfmt: 11-08-2021 End: 16-64-4863btqktancnvDG DAVID V WESTFacility:A4Obpor: 10-19-2021 End: 24-01-5225zbzyouxpqiZF DAVID V WESTFacility:O5Zctqx: 10-16-2021 End: 64-06-5725cjyqbrcnuoUL DAVID V WESTFacility:W8Nkaqc: 10-10-2021 End: 37-02-6154qozaggqytzQIQ YAMILE Rodriguezcility:M4Tllub: 64-13-9793Chihrjlem encounterCameron DittyFPG GastroenterologyStart: 08-22-2020 End: 88-53-2701Uweup Yimi Fishman Work Phone: Hematology/OncologyStart: 08-22-2020 End: 17-66-0739Vfleudf encounter procedureExternal ProviderKettering Health [facility] Start: 91-42-3554Wtezpoo OnlyExternal ProviderExternal-NonCCF Procedures DateProcedureProcedure DetailPerforming ClinicianStart: 79-91-9895GVXYCYWH IMAGINGExternal ProviderStart: 78-47-6738ZEBLEPQB LABExternal Provider Plan of Treatment DateCare ActivityDetailAuthorStart: 91-59-5186Qqpgikibk vaccinationINFLUENZA (#1)[facility]: 70-12-7272SRB TESTINGHPV TESTINGK[facility] Start: 21-80-4217ZWK TESTINGPAP TESTINGProMedica Tol[facility] Hospitaltart: 61-92-2763Aefry microalbumin profileDTAP,TDAP,TD (1 - Tdap)[facility]: 2007 HEPATITIS C SCREENINGHEPATITIS C SCREENINGPro[facility]ica [facility] Hospitaltart: 03-32-1732QLO SCREENINGHIV SCREENINGProMedica [facility]edo Hospitaltart: 93-71-4456Ihcif depression screening assessmentDEPRESSION SCREENINGCincinnati Shrin[facility] Payers DatePayer CategoryPayerPolicy [id number] Health InsuranceAETNA AETNA OPEN ACCESS AETNA SELECT [id number] 2020-Present [id number] 2.0.1.854307.3.57[id number] 2.0.1.992010.3.57[id number] 2..1.815779.3.57[id number] 2..1.113480.3.57[id number] 2..1.896540.3.57[id number] 2..1.706090.3.57[id number] 2..1.110025.3.57[id number] 2..1.490711.3.57[id number] 2..1.819061.3.57[id number] 2.0.1.966356.3.57[id number] 2..1.579241.3.57[id number] 2.0.1.127561.3.57[id number] 2.0.1.453410.3.57[id number] 2..1.213640.3.57[id number] 2..1.390473.3.579.2.593 [id number] 1960Private Health [id number] 2..0.870240.13355016-36-4022Fogy-[id number] 65-33-0015Kiml-[id number] Social History DateTypeDetailFacilityStart: 98-20-8705Zibtbcw smoking status NHISUnknown if ever smokedProMedica Toledo Hospitaltart: 02-21-2210Yfq Assigned At BirthNot on file [facility] TownshipExposure to SARS-CoV-2 (event)Not sureProMedica Toledo Hospitalex Assigned At BirthNossm [facility] Other Tobacco smoking statusNo Smoking Status [facility]teredSt[facility] Functional Status MsybVmzsotlyhnHukbfoWrreatpx49-10-3187Ryycjphmap StatusN/[facility] Progress note 2023 Note Date & WjxuAzqzSavcqifl21-73-3241 NoteHNO ID: [id number] Author: FRANCIS MA MD Service: ? Author Type: Physician Type: Progress Notes Filed: 2023 14:44 Note Text: [facility] [place], [place] Department of Hematologic Oncology and Blood Disorders PATIENT NAME: [facility] NO: [id number] ATTENDING PHYSICIAN: Francis Ma MD. DATE OF [...] Abs Lymph 1.00 - 4.00 k/uL 1.42 Desoto% % 5.3 Abs Desoto <0.87 k/uL 0.21 Eosin% % 1.5 Abs [...] in 2018 during ). 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 She was placed on folic acid. [...] case. We also reviewed (more content not included)...[facility] Evaluation + Plan note 12-10-2021 Note Date & IgvgBwxpBgyzmsdw35-59-4594 Evaluation + Plan noteExtracted from: Title:ED NoteAuthor:Asad Strong, Migule HDate:12/10/21 1. Vertigo (R42: Dizziness a nd giddiness) [...] Diagnostic Tests Pending * Path. Review 12/10/21 [facility] Hospital Discharge instructions 12-10-2021 Note Date & OqsxIqofDfuncqpq77-39-5331 Hospital Discharge instructions Patient Education 12/10/2021 03:49:36 Vertigo Vertigo Vertigo is the feeling that you or your surroundings are moving when they are not. This feeling cancome and go at any time. Vertigo often [...] if you feel dizzy. General instructions Take ccca-dmk-xkmxpva and prescription medicines only as told by [...] 02/20/2006 Document Revised: 04/06/2019 Document Reviewed: 04/06/2019 [employer] Patient Education 2020 [employer]. Follow Up Care 12/09/2021 22:26:43 With:YAMILE GARCIA Address: [address] [place] [phone] Business (1) When:12/13/2021 Comments:Return to the emergency room if your vertigo recurs or any new symptoms [facility] Clinical Note 12-10-2021 Note Date & LegjAcnuDibrahav17-16-5506 Notept arrived to ed from home via private car c/o dizziness for 2 days with nausea and BL leg pain. pthas recently had varicose vein procedure done. VSS. pt with no redness or swelling of the leg. iv access obtained. labs sent. urine sent. pt medicated as ordered. pt denies any SOB. [facility] Note Date & TypeNoteFacilityEvaluation noteNo InformationNortMercy Fitzgerald Hospital [employer] Other History general Narrative - Reported Note Date & TypeNoteFacilityHistory general Narrative - Reported* Type Description Date Surgical History D & C [facility] [employer] Other Hospital course Narrative Note Date & TypeNoteFacilityHospital course Narrative No data available for this section [facility] Progress note Note Date & TypeNoteFacilityProgress note No data available for this section [facility] Summary Purpose Family History No Family [...] or prosecute any alcohol or drug abuse patient.[facility] TownshipIn the event this information is protected by the Federal Confidentiality of Alcohol and Drug Abuse Patient Records regulations: The Federal rules restrict any use of the information to criminally investigate or prosecute any alcohol or drug abuse patient.[facility] REASON FOR VISIT (unrecogniz ed section and content) N/S covid test Care Team (unrecognized sect ion and content) Personnel Name: MARYJO MAHADYAMILE Address: [address] [place] [address] [place] INFORMATION SOURCE (unrecogn ized section and content) DATE CREATED AUTHOR 12/14/2021 [facility] DATE CREATED AUTHOR AUTHOR'S ORGANIZ ATION 10/06/2022 [facility] DATE CREATED AUTHOR AUTHOR'S ORGANIZ ATION 06/22/2023 [facility] FOR RECORDS PERTAINING TO PATIENTS WHO [...] BE BASED ON THE PRIMARY CLINICAL RECORDS. [employer] provides no warranty or guarantee of the accuracy or completeness of information in this document.
--- OUTSIDE RECORDS SUMMARY | 2025-04-17 10:52 | XMS_ITS | Clinical Summary ---
Author Organization [facility] Address [address] [place] [address] Care Team Providers Care Gasoline Attendant Name Role Phone Vikash Walsh CNP Primary Care Provider [phone] Khloe Salcedo MD Unavailable [phone] Allergies No known active allergies Medications MedicationSigDispense QuantityRefillsLast FilledStart DateEnd DateStatus omeprazole (PRILOSEC) 20 mg capsule 08/23/2020ctive folic acid 1 mg tablet Take 1 tablet by mouth once daily. 90 tablet ctive levothyroxine (SYNTHROID) 50 mcg tablet Take 50 mcg by mouth once daily.Active busPIRone (BUSPAR) 10 mg tablet Take 10 mg by mouth three times a day.11/07/2022ctive hydrOXYzine pamoate (VISTARIL) 25 mg capsule Take 25 mg by mouth two times a day.03/19/2023ctive pantoprazole DR (PROTONIX) 40 mg tablet Take 40 mg by mouth once daily.11/07/2022ctive Active Problems No known active problems Family History RelationStatusCommentsFatherAliveMotherAlive Social History Tobacco UseTypesPacks/DayYears UsedDateSmoking Tobacco: NeverSmokeless Tobacco: NeverAlcohol UseStandard Drinks/WeekCommentsNever0 (1 standard drink = 0.6 oz pure alcohol)AUDIT-CAnswerDate RecordedQ1: How often do you have a drink containing alcohol?Never08/23/2020verage Number of DrinksNot on file08/23/2020 Frequency of Binge DrinkingNot on file03/30/2021Area Deprivation IndexAnswerDate RecordedNational Score (1-100), lower number is lower webg791606/20/2023State Score (1-10), lower number is lower ukgh44506/20/2023ata from: https://www.neighborhoodatlas.medicine.[facility]/. Last address used for ximuekpotiz[address]23CommentsNoSex and Gender Information ValueDate RecordedSex Assigned at BirthNot on fileLegal JubBdwgpx69/25/2021 9:39 AM EDTGender IdentityNot on fileSexual OrientationNot on file Last Filed Vital Signs Vital SignReadingTime TakenCommentsBlood Elxsloxp966/8106/20/2023 2:02 PM EST Kgbdc753506/20/2023 2:02 PM CRPPbszlmjkdko61.4 ??C (97.6 ??F)08/23/2020 10:59 AM EDTRespiratory Yplk132406/20/2023 2:02 PM ESTOxygen Kdykisiruq21%2023 2:02 PM ESTInhaled Oxygen Concentration--Yxjrrq985.3 kg (234 lb 5.6 oz)2023 2:02 PM JDPBzqgil632 cm (5' 2.99 )2023 2:04 PM ESTBody Mass Index41.52 2023 2:02 PM EST Plan of Treatment Health MaintenanceDue DateLast DoneCommentsAnxiety Oqokiiyfr78/25/2008Depression Ipodxxvgb70/25/2008HIV Bakfrlcgh61/25/2008Hepatitis C Hqusrcyhh57/25/2008 DTaP,Tdap,Td Vaccine (1 - Tdap)2008Hepatitis B Vaccine (1 of 3 - 19+ 3- dose series)2008Cervical Cancer Wnrdlhbko18/25/2011HPV Vaccine (1 - 3-dose SCDM series)2016Covid-19 Vaccine ( - 2024- season)2025Influenza Vaccine (#1)2025 Insurance Care Teams Team MemberRelationshipSpecialtyStart DateEnd Date Vikash Walsh CNP [address] [place] [address] PCP - GeneralFamily Medicine05/29/23 Khloe Salcedo MD [address] [place] [address] Hematology/Oncology06/21/23
--- OUTSIDE RECORDS SUMMARY | 2025-04-17 10:52 | XMS_ITS | Clinical Summary ---
Author Organization [facility] Address [address] [place] [address] Care Team Providers Care Traffic Division Commanding Officer Name Role Phone Ford Villeda MD Primary Care Provider [phone] Allergies No known active allergies Medications MedicationSigDispense QuantityRefillsLast FilledStart DateEnd DateStatus busPIRone (Buspar) 10 MG tablet every 8 (eight) hours.Active hydrOXYzine HCl (Atarax) 25 MG tablet 06/07/2022ctive hydrOXYzine pamoate (Vistaril) 25 MG capsule every 12 (twelve) hours.Active levothyroxine (Synthroid, Levoxyl) 50 MCG tablet 1 (one) time each day at the same time.Active pantoprazole (ProtoNix) 40 MG EC tablet 1 (one) time each day at the same time.Active Social History Tobacco UseTypesPacks/DayYears UsedDateSmoking Tobacco: Never Assessed CommentsNoSex and Gender InformationValueDate RecordedSex Assigned at BirthNot on fileLegal YqwZghsgg96/15/2023 11:47 PM EDTGender IdentityNot on fileSexual OrientationNot on file Last Filed Vital Signs Vital SignReadingTime TakenCommentsBlood Ahvtwvff872/7003/28/2023 3:47 PM EDT Pulse--Temperature--Respiratory Rate--Oxygen Saturation--Inhaled Oxygen Concentration--Rdfyak297 kg (228 lb)03/28/2023 3:47 PM MSEWydsdg803 cm (5' 3 ) 01/03/2023 10:29 AM EDTBody Mass Index40.39001/03/2023 10:29 AM EDT Plan of Treatment Not on file Insurance Care Teams Team MemberRelationshipSpecialtyStart DateEnd Date Ford Villeda MD PCP - GeneralFamily Medicine11/16/22
--- OUTSIDE RECORDS SUMMARY | 2025-04-17 10:52 | XMS_ITS | Patient Health Record ---
Author Organization [facility] [place] Address [address] [place] [address] Support Name Relationship Address Phone Orion Emergency Contact Unknown Unavailabl e Orion Ta Jr Guarantor Unknown Reason For Referral No Information Plan Of Treatment No Information Insurance Providers Payer Name Payer Address Payer Phone Subscriber Number Group Number Insured Name Patient Relationship to Insured Coverage Start Date Coverage End Date SELF PAY ON PATIENT [employer] Gloria Ta Jr - patient's relationship to the insured is other than any [id number]/26/[id number]
--- OUTSIDE RECORDS SUMMARY | 2025-04-17 10:52 | XMS_ITS | Patient Health Record ---
Author Organization [facility] [place] Address [address] [place] [address] Care Team Providers Care Jet Operator Name Role Phone Nico COMPLIANCE MGR, Vikash Primary Care Provider Unavailab Khloe Carson Unavailable [phone] Reason For Referral No Information Plan Of Treatment Pending Test Test Name Order Date CBC AUTO DIFF 12/02/2023 FERRITIN 12/02/2023 IRON AND TIBC 12/02/2023 PROF CHEM 8 (BAS METB) 12/02/2023 Insurance Providers Payer Name Payer Address Payer Phone Subscriber Number Group Number Insured Name Patient Relationship to Insured Coverage Start Date Coverage End Date [facility] [address] [place] [id number] Torie OrtizSelf - patient is the insured
[2025-04-17 11:44] LABS: Alanine Aminotransferase 39 U/L (14-59); Albumin Globulin Ratio 0.9; Albumin Level 3.4 g/dL (3.4-5.0); Alkaline Phosphatase 76 U/L (46-116); Anion Gap 11.6; Aspartate Amino Transferase 19 U/L (15-37); Blood Urea Nitrogen 15.0 mg/dL (7.0-18.0); Calcium 8.6 mg/dL (8.5-10.1); Carbon Dioxide 26.6 mmol/L (21.0-32.0); Chloride 105 mmol/L (98-107); Cholesterol 180 mg/dL (<=200); Estimated GFR (African America >60 (>=60 mL/min/1.73m^2); Estimated GFR (Non-African Ame >60 (>=60 mL/min/1.73m^2); Globulin 3.7 g/dL; Glucose 96 mg/dL (74-106); HDL Cholesterol 28 mg/dL (40-60); Potassium 4.2 mmol/L (3.5-5.1); Sodium 139 mmol/L (136-145); TSH W/ REFLEX FT4 4.025 uIU/mL (0.358-3.740); Total Protein 7.1 g/dL (6.4-8.2); Triglycerides 239 mg/dL (<=150); VLDL CHOLESTEROL 47.8 mg/dL
== END 2025-04-17 10:48 | disposition home or self-care (01) ==
LOC: LAB 10:48
PROVIDERS: Family Provider Nurse Practitioner Primary Care; PCP Nurse Practitioner; Visit Provider Internal Medicine
DX: E03.9 Hypothyroidism, unspecified (principal)
CPT/HCPCS: 36415; 80053; 80061; 84439; 84443